=== PATIENT | female | born 1940 | race African-American/Black ===

== ENCOUNTER 2019-02-19 09:52 | Inpatient (IN) | payer MEDICARE, OTHER ==
[2019-02-19] VITALS (30 sets, daily range): BP systolic 60–105; BP diastolic 39–86
[~2019-02-19] VITALS: Ht 165.1 cm; Wt 72.1 kg
[2019-02-19] MEDS ORDERED: LACTULOSE20 GM/301 ORAL (10:04)
[2019-02-19] MEDS ORDERED: ATROVENT HFA12.9 GM IH (10:04)
[2019-02-19] MEDS ORDERED: INFUVITE ADULT10 ML IV (10:04)
[2019-02-19] MEDS ORDERED: PRO-STAT LIQUID30 ML ORAL (10:04)
[2019-02-19] MEDS ORDERED: PACERONE100 MG ORAL (10:04)
[2019-02-19] MEDS ORDERED: CATAPRES0.1 MG ORAL (10:04)
[2019-02-19] MEDS ORDERED: FAMOTIDINE20 MG ORAL (10:04)
[2019-02-19] MEDS ORDERED: VITAMIN C 250250 MG PO (10:04)
[2019-02-19] MEDS ORDERED: Omnipaque-300 100ml vial INJ PRN (10:15)
--- NOTE | 2019-02-19 10:29 | Emergency Room Report ---
History of Present Illness General Chief Complaint: Abdominal Pain Source: Medical Record, EMS Present Illness HPI Patient brought in with a complaint of abdominal pain. The patient is a poor historian. She does say that her abdomen hurts but she will not characterize it or quantify it. From records: History of atrial fibrillation and COPD. History of diabetes. POLS reveals full code. Allergies: Coded Allergies: No Known Allergies (Unverified , 02/19/19) Patient History Limited by: medical condition Past Medical History: see triage record Past Surgical History: other - g tube Social History Narrative full code Reviewed Nursing Documentation: PMH: Agreed; PSxH: Agreed Nursing Documentation-PMH Hx Hypertension: Yes Hx COPD: Yes Hx Diabetes: Yes Hx Dialysis: No - CKD Review of Systems All Other Systems: limited Physical Exam Vital Signs Date Time Temp Pulse Resp B/P (MAP) Pulse Ox O2 Delivery O2 Flow Rate FiO2 02/19/19 09:53 68 20 108/70 (83) 99 Room Air Sp02 EP Interpretation: reviewed, normal General Appearance: well appearing, alert, mild distress, other - nonsensical speech Head: normocephalic Eyes: bilateral eye normal inspection, bilateral eye PERRL, bilateral eye EOMI ENT: dry mucus membranes Neck: supple Respiratory: lungs clear, normal breath sounds Cardiovascular #1: tachycardia, irregularly irregular, edema - trace Cardiovascular #2: 2+ radial (R) Gastrointestinal: soft, no guarding, no rebound, tenderness - Left lower quadrant, other - Gastrostomy tube, decreased bowel sounds Genitourinary: no CVA tenderness Musculoskeletal: back normal, normal range of motion Neurologic: alert, responsive, motor strength/tone normal, DTRs symmetric, sensory intact Psychiatric: anxious Skin: no rash, warm/dry Procedures Critical Care Time Critical Care Time Total Critical Care Time: 90 min bedside evaluation and treatment excludes procedures (EKG, CVP). Reason for critical care: severe septic shock, abdominal pain, hypotension Possible complications: hypotension, hypertension, CA, shock, arrhythmias, metabolic acidosis, end organ damage, respiratory failure. Interventions: Fluid resuscitation, CVP, antibiotics, reassessments Course: Patient presents with abdominal pain, tachycardia and hypotension. CVP begun as unable to obtain peripheral IVs. Blood strong for lab. Fluid resuscitation. Sepsis reevaluation. Antibiotics begun. Levo fed begun with second sepsis reevaluation. Discussion with admitting physician. The order of CT scan due to renal failure. Blood pressure improved with pressors. Admitted to ICU. Consultations: nursing staff, EMS, radiology techs, admitting physician Performed by: Dr. Dukes Tolerated well condition = critical Central Line Central Line : Consent: Emergent Central Line Lumen: triple Maximal Sterile Barrier Tech: yes cap, yes mask, yes sterile gown, yes sterile gloves, yes large sterile sheet, yes hand hygiene, yes chlorhexidine prep cc's of anesthesia: 1 Complications: none Central Line Post Position: sutured, good blood return Attempts: One Patient Tolerated: Well Complications: None Progress bloods drawn for lab 30 cc - EBL 34 cc- ultrasound guidance Medical Decision Making Diagnostic Impression: Primary Impression: Severe sepsis Additional Impressions: Abdominal pain Qualified Codes: R10.32 - Left lower quadrant pain Atrial fibrillation with rapid ventricular response Dehydration Septic shock Renal failure Qualified Codes: N17.9 - Acute kidney failure, unspecified UTI (urinary tract infection) Qualified Codes: N39.0 - Urinary tract infection, site not specified ER Course Patient who is a poor historian brought in for abdominal pain. Clinically she is dehydrated at this time and has some tenderness left lower quadrant without guarding or rebound. Differential includes diverticulitis, UTI, pyelonephritis , impaction amongst others. Evaluation with EKG, chest x-ray and CT of the abdomen and pelvis with contrast. Labs will be obtained. The patient is placed on a monitoring tech. IV hydration is ordered. EKG with atrial fibrillation rate of 105 low voltage QRS and nonspecific ST-T wave changes. Initial x-ray without infiltrate however cardiomegaly. Leukocytosis with left shift. Elevated lactic acid. Renal failure. Pyuria. 11:45 Sepsis evaluation - hypotensive, no IV sites. CVP started. Elevated lactate. Antibiotics ordered. 13:55 BP better but still low after bolus. HR improved. Start levophed. CT re-ordered as renal failure. Still oral contrast. See CT below. Discussed with Dr. Reis. Admit ICU. Blood pressure improved on Levophed. Heart rate improved. Laboratory Tests Test 02/19/19 11:00 02/19/19 12:00 02/19/19 14:30 02/19/19 17:40 White Blood Count 11.0 K/UL (4.8-10.8) H Red Blood Count 2.70 M/UL (4.20-5.40) L Hemoglobin 9.0 G/DL (12.0-16.0) L Hematocrit 29.9 % (37.0-47.0) L Mean Corpuscular Volume 111 FL (80-99) H Mean Corpuscular Hemoglobin 33.5 PG (27.0-31.0) H Mean Corpuscular Hemoglobin Concent 30.2 G/DL (32.0-36.0) L Red Cell Distribution Width 18.0 % (11.6-14.8) H Platelet Count 80 K/UL (150-450) L Mean Platelet Volume 8.1 FL (6.5-10.1) Neutrophils (%) (Auto) % (45.0-75.0) Lymphocytes (%) (Auto) % (20.0-45.0) Monocytes (%) (Auto) % (1.0-10.0) Eosinophils (%) (Auto) % (0.0-3.0) Basophils (%) (Auto) % (0.0-2.0) Differential Total Cells Counted 100 Neutrophils % (Manual) 81 % (45-75) H Lymphocytes % (Manual) 15 % (20-45) L Monocytes % (Manual) 4 % (1-10) Eosinophils % (Manual) 0 % (0-3) Basophils % (Manual) 0 % (0-2) Band Neutrophils 0 % (0-8) Platelet Estimate Decreased L Platelet Morphology Normal Polychromasia 1+ Hypochromasia 1+ Anisocytosis 1+ Macrocytosis 2+ Prothrombin Time 27.0 SEC (9.30-11.50) H Prothrombin Time INR 2.7 (0.9-1.1) H PTT 50 SEC (23-33) H Sodium Level 138 MMOL/L (136-145) Potassium Level 5.5 MMOL/L (3.5-5.1) H Chloride Level 101 MMOL/L (98-107) Carbon Dioxide Level 20 MMOL/L (21-32) L Anion Gap 17 mmol/L (5-15) H Blood Urea Nitrogen 53 mg/dL (7-18) H Creatinine 2.1 MG/DL (0.55-1.30) H Estimate Glomerular Filtration Rate mL/min (>60) Glucose Level 75 MG/DL (74-106) Lactic Acid Level 11.80 mmol/L (0.4-2.0) H 10.60 mmol/L (0.66-2.22) H Calcium Level 8.3 MG/DL (8.5-10.1) L Total Bilirubin 3.0 MG/DL (0.2-1.0) H Direct Bilirubin 1.9 MG/DL (0.0-0.3) H Aspartate Amino Transferase (AST) 62 U/L (15-37) H Alanine Aminotransferase (ALT) 25 U/L (12-78) Alkaline Phosphatase 131 U/L (46-116) H Troponin I 0.080 ng/mL (0.000-0.056) Total Protein 6.5 G/DL (6.4-8.2) Albumin 2.4 G/DL (3.4-5.0) L Globulin 4.1 g/dL Albumin/Globulin Ratio 0.6 (1.0-2.7) L Lipase 170 U/L (73-393) Urine Color Yellow Urine Appearance Cloudy Urine pH 5 (4.5-8.0) Urine Specific [place] 1.020 (1.005-1.035) Urine Protein 3+ (NEGATIVE) H Urine Glucose (UA) Negative (NEGATIVE) Urine Ketones 2+ (NEGATIVE) H Urine Blood 3+ (NEGATIVE) H Urine Nitrite Negative (NEGATIVE) Urine Bilirubin Negative (NEGATIVE) Urine Urobilinogen 4 MG/DL (0.0-1.0) H Urine Leukocyte Esterase 3+ (NEGATIVE) H Urine RBC 5-10 /HPF (0 - 2) H Urine WBC 30-40 /HPF (0 - 2) H Urine Squamous Epithelial Cells Few /LPF (NONE/OCC) Urine Bacteria Few /HPF (NONE) Urine Yeast Few /HPF (NONE) H Arterial Blood pH 7.317 (7.350-7.450) Arterial Blood Partial Pressure CO2 28.6 mmHg (35.0-45.0) L Arterial Blood Partial Pressure O2 102.6 mmHg (75.0-100.0) H Arterial Blood HCO3 14.3 mmol/L (22.0-26.0) *L Arterial Blood Oxygen Saturation 96.7 % (95-100) Arterial Blood Base Excess -10.7 (-2-2) *L Melchor Test Positive EKG Diagnostic Results Rate: tachycardiac Rhythm: other - She will fibrillation ST Segments: no acute changes - Nonspecific ST-T wave changes Rhythm Strip Diag. Results EP Interpretation: yes Rhythm: other - Atrial fibrillation [address]-T wave changes Chest X-Ray Diagnostic Results Chest X-Ray Diagnostic Results #1: Chest X-Ray Ordered: Yes # of Views/Limited/Complete: 1 View Indication: Other EP Interpretation: Yes Interpretation: no consolidation, no effusion, no pneumothorax, other - cardiomegally Impression: No acute disease Electronically Signed by: Electronically signed by Jimmie Dukes MD Chest X-Ray Diagnostic Results #2: Chest X-Ray Ordered: Yes # of Views/Limited/Complete: 1 View Indication: Other EP Interpretation: Yes Interpretation: no consolidation, no effusion, no pneumothorax, other - Cardiomegaly and CVP in superior vena cava Impression: Other Electronically Signed by: Electronically signed by Jimmie Dukes MD CT/MRI/US Diagnostic Results CT/MRI/US Diagnostic Results : Imaging Test Ordered: abd/pelvis - oral contrast Impression IMPRESSION: Limited evaluation due to artifact. Mild to moderate ascites Trace bilateral pleural effusions. Basilar atelectasis and/or infiltrate. Trace pericardial effusion Generalized cardiomegaly. Atherosclerotic vascular disease Extensive diverticulosis of the colon. No definite diverticulitis. Anasarca Gross catheter Query rectal prolapse Last Vital Signs Date Time Temp Pulse Resp B/P (MAP) Pulse Ox O2 Delivery O2 Flow Rate FiO2 02/19/19 18:30 108 24 93/70 (78) 98 02/19/19 16:30 97.0 02/19/19 16:05 Room Air 98 Status: improved Disposition: ADMITTED INPATIENT Condition: Critical Jimmie Dukes MD Feb 19, 2019 10:29
--- NOTE | 2019-02-19 11:10 | NUR ---
ED Nurse Note: pt very difficult to obtain iv and labs. md aware of difficulty and hypotension. md to place central line. pcxr being done at bs. pt remains awake and talking but confused.
[2019-02-19 11:20] LABS: HEMATOCRIT 29.9 % (37.0-47.0); MEAN CORPUSCULAR VOLUME 111 FL (80-99); PLATELET COUNT 80 K/UL (150-450)
[2019-02-19 11:28] LABS: INR 2.7 (0.9-1.1)
[2019-02-19 11:30] LABS: ANION GAP 17 mmol/L (5-15); BLOOD UREA NITROGEN 53 mg/dL (7-18); CALCIUM 8.3 MG/DL (8.5-10.1); CARBON DIOXIDE 20 MMOL/L (21-32); CHLORIDE 101 MMOL/L (98-107); CREATININE 2.1 MG/DL (0.55-1.30); POTASSIUM 5.5 MMOL/L (3.5-5.1); SODIUM 138 MMOL/L (136-145)
[2019-02-19] MEDS ORDERED: Lidocaine 1% MPF 10mg/ml 5ml ONE (11:37)
[2019-02-19 11:40] LABS: ALANINE AMINOTRANSFERASE 25 U/L (12-78); ALBUMIN 2.4 G/DL (3.4-5.0); ALBUMIN/GLOBULIN RATIO 0.6 (1.0-2.7); ALKALINE PHOSPHATASE 131 U/L (46-116); ASPARTATE AMINO TRANSFERASE 62 U/L (15-37)
--- NOTE | 2019-02-19 11:52 | NUR ---
ED Nurse Note: MD attempting to place central line.
[2019-02-19 11:54] LABS: BILIRUBIN,DIRECT 1.9 MG/DL (0.0-0.3)
--- NOTE | 2019-02-19 12:10 | NUR ---
ED Nurse Note: cetnral line placed and pt tolerated well ivf infusing a ordered.
--- NOTE | 2019-02-19 12:10 | NUR ---
ED Nurse Note: md aware of lactic acid result. per md pt to receive ivf boluses before having reflex lactic drawn.
[2019-02-19] MEDS ORDERED: Piperacillin/Tazobactam 3.375 GM in NS 110 ML IVPB ONE (12:15)
[2019-02-19] MEDS ORDERED: Vancomycin 1 GM in NS 275 ML IVPB ONE (12:15)
[2019-02-19 12:24] LABS: APPEARANCE,URINE CLOUDY; BILIRUBIN, URINE NEGATIVE (NEGATIVE); GLUCOSE, URINE (UA) NEGATIVE (NEGATIVE); KETONES,URINE 2+ (NEGATIVE); LEUKOCYTE ESTERASE ,URINE 3+ (NEGATIVE); NITRITE,URINE NEGATIVE (NEGATIVE); PH,URINE 5 (4.5-8.0); PROTEIN,URINE 3+ (NEGATIVE); UROBILINOGEN,URINE 4 MG/DL (0.0-1.0)
[2019-02-19 12:25] LABS: COLOR,URINE YELLOW
--- NOTE | 2019-02-19 12:28 | NUR ---
Central line dressing soiled. Dressing changed. Sterile technique used.
--- NOTE | 2019-02-19 13:04 | Diagnostic Imaging Report ---
Indication: Dyspnea Comparison: None A single view chest radiograph was obtained. Findings: The heart is enlarged. Lungs are clear. Pulmonary vascularity is within normal limits. No pleural effusion seen. Bones are osteopenic. There is an old right clavicle fracture and multiple old rib fractures. IMPRESSION: Moderate to severe cardiomegaly.
--- NOTE | 2019-02-19 13:06 | Diagnostic Imaging Report ---
Indication: Line placement Comparison: Earlier today at 11:11 A single view chest radiograph was obtained. Findings: Right jugular line is present projected over the SVC. There is no pneumothorax. No change otherwise compared to the earlier film. IMPRESSION: Right jugular central venous catheter in good position.
--- NOTE | 2019-02-19 14:12 | NUR ---
ED Nurse Note: Dr. Dukes aware that patien blood pressure is trending in systolic 70. Also aware of heart rate 103.
--- NOTE | 2019-02-19 14:45 | NUR ---
ED Nurse Note: pt with continued hypotension despite ivf bolus. pt with lactic reflex drawn ans sent. levophed gtt started as noted. pt awake and confused with unitelligeable speech. admission swabs sent as ordered.
--- NOTE | 2019-02-19 15:00 | NUR ---
ED Nurse Note: pt remains with levophed titration as per spreadsheet vs noted there. pt tolerating well.
[2019-02-19] MEDS ORDERED: Lidocaine 1% MPF 10mg/ml 5ml INJ ONE (15:15)
--- NOTE | 2019-02-19 15:22 | NUR ---
ED Nurse Note: pt to have abd ct prior to going to icu.
--- NOTE | 2019-02-19 15:23 | NUR ---
NURSE NOTES: RECEIVE REPORT FROM Sandi FALK IN ER. PT ON LEVO, REMAINS HYPOTENSIVE SBP 80'S. A FEBRILE. A/[id number] MD WOLF. PT GOING TO 246-H. NO WOUNDS NOTED. SWABS OBTAINED. AWAITING PT ARRIVAL.
--- NOTE | 2019-02-19 15:25 | NUR ---
ED Nurse Note: ct called to come transport pt and perform procedure without iv contrast per dr dominguez
--- NOTE | 2019-02-19 15:33 | NUR ---
Pt taken for CT.
--- NOTE | 2019-02-19 15:58 | NUR ---
ED Nurse Note: ct completed and pt prepared to go to icu with rn and acls protocol. remains alert and confused.
--- NOTE | 2019-02-19 16:25 | Diagnostic Imaging Report ---
Indication: Abdominal pain Technique: Continuous helical transaxial imaging of the abdomen and pelvis was obtained from the lung bases to the pubic symphysis. No intravenous contrast was administered. Coronal 2-D reformats were also obtained. Automatic Exposure Control was utilized. Total Dose length Product (DLP): [address] Dose Index Volume (CTDIvol): 17.5 mGy Comparison: none Findings: There is extensive artifact from the patient's arms limiting evaluation. Oral contrast was given. Gastrostomy tube is noted in good position. There are small bilateral pleural effusions present with adjacent ill-defined parenchymal density either atelectasis or pneumonia. Correlate clinically. Small pericardial effusion is present and there is generalized cardiomegaly present. Hiatal hernia noted. Aorta and coronary artery calcification present. Mild ascites is demonstrated. No compelling evidence for bowel obstruction. There is extensive diverticulosis involving the colon without obvious diverticulitis. Generalized anasarca noted. The appendix is not seen. The kidneys show no obvious hydronephrosis. The right kidney appears atrophic. There is a suggestion of cysts within the right kidney but this is grossly limited in terms of visualization. The gallbladder is demonstrated. The rectum appears low in location suggestive of prolapse and with a moderate degree of fecal retention. IMPRESSION: Limited evaluation due to artifact. Mild to moderate ascites Trace bilateral pleural effusions. Basilar atelectasis and/or infiltrate. Trace pericardial effusion Generalized cardiomegaly. Atherosclerotic vascular disease Extensive diverticulosis of the colon. No definite diverticulitis. Anasarca Gross catheter Query rectal prolapse The CT scanner at [facility] is accredited by the [place] [employer] and the scans are performed using dose optimization techniques as appropriate to a performed exam including Automatic Exposure control.
--- NOTE | 2019-02-19 17:00 | NUR ---
NURSE NOTES: PT BROUGHT TO FLOOR. ON R.A SATING 60'S, PURSED LIP BREATHING, UNABLE TO OBTAIN AX TEMP, PER RECTAL 94.4. BP 84/44, HR 120, RR25. LEVO GOING AT 8MCG/KG/HR. RT IJ, TRANSPARENT PT MOANING AND RAMBLING. SWINGING ARMS RESTRAINTS APPLIED FOR SAFETY. PT VERY CONFUSED, PUPILS 4MM SLUGGISH, SCLERA YELLOW HUE. ORBITS SWOLLEN AND HYPERPIGMENTED. ABDOMEN DISTENDED, FIRM, 1 LOOSE BM BROWN. HATFIELD IN PLACE, NO OUTPUT NOTED. BEAR HUGGER APPLIED, LEVO TITRATED UP TO 10MG/KG/HR. CENTRAL DRESSING CHANGED, PT PLACED ON 3L NC, CONTINUES TO DESAT PLACED ON VENTURI 28%3L. STANDARD PRECAUTIONS IN PLACE.
--- NOTE | 2019-02-19 17:20 | NUR ---
NURSE NOTES: CALLED MD SINGLETARY LEFT MESSAGE FOR NEW ADMIT ORDERS, PT HYPOTENSIVE RECEIVED LEVOPHED DRIP, VERY CONFUSED, HR 120. LACTIC ACID 10.60, K 5.5, PLT 80, PH 7.3, PCO2 28.6, ATF930.3. CODE STATUS. AWAITING CALL BACK.
--- NOTE | 2019-02-19 18:00 | NUR ---
NURSE NOTES: LEVOPHED TITRATED TO 14MCG/KG/HR. BP REMAIN LIABLE. NS RUNNING AT 100ML/HR. RECTAL TEMP REMAIN ST 94. PT CONTINUES TO MOAN. REMAINS CONFUSED. WILL CONTINUE TO MONITOR PT.
[2019-02-19] MEDS: Pantoprazole Inj IVP SCH (18:50)
--- NOTE | 2019-02-19 19:00 | NUR ---
HAND-OFF: Report given to HENRRY HDZ.
--- NOTE | 2019-02-19 19:30 | NUR ---
NURSE NOTES: Dr. Reis at bedside assessing patient. Phenylephrine ordered as standby incase Levophed has maxed out. Bipap PRN ordered. PICC line ordered for AM. Will continue to monitor.
--- NOTE | 2019-02-19 20:00 | NUR ---
NURSE NOTES: Patient received from Jody HDZ. Patient is awake, confused and has rambling speech. Patient is semi-fowlers position. Patient is on venturi mast at 28% FiO2. Right IJ TLC noted running Levophed at 16mcg/min. Patient also has NS at 100ml/hr. Gross catheter noted. HR is 110 Afib. Patients is on bilateral soft wrist restraints. Pulses noted and skin is intact, saftery measures are in place. Will continue to monitor.
[2019-02-19] MEDS ORDERED: Lidocaine 1% Plain 30 ml INJ PRN (20:15)
[2019-02-19] MEDS: Phenylephrine 100 MG in NS 240 ML IV SCH (20:15)
[2019-02-19] MEDS ORDERED: Heparin1,000 units/500ml Premix(Conc:2 units/ml) IV PRN (20:15)
[2019-02-19] MEDS: Piperacillin/Tazobactam 3.375 GM in NS 110 ML IVPB SCH (21:00)
--- NOTE | 2019-02-19 22:00 | NUR ---
NURSE NOTES: Repositioned patient and gave oral care. Patient continues to be agitated and rambles in speech. Pressors has slowly been titrated to appropriate dose to maintain MAP getter than 60. Patient is not making any urine output. MD already aware of this. Patients blood pressure fluctuates up and down. Patient however maintains awake and restlessness.
--- NOTE | 2019-02-19 23:15 | History and Physical Report ---
DATE OF ADMISSION: 02/19/2019 CHIEF COMPLAINT: Septic shock. HISTORY OF PRESENT ILLNESS: The patient is a 78-year-old female. She has a history of poor p.o. intake, status post G-tube placement; chronic atrial fibrillation; diastolic congestive heart failure; dementia; psychosis; hyperlipidemia. She was transferred from a [facility] facility with complaints of hypotension, shock, and altered mental status. On evaluation in the emergency room, the patient was noted to be hypotensive, confused, and altered. She was placed on a Venti mask. She has been pancultured and started on broad-spectrum IV antibiotics. A central line was placed for pressors because of persistent hypotension despite IV fluid boluses. The patient is now admitted to the intensive care unit. [place] [id number]. ABG showed a pH of 7.317, pCO2 28, pO2 102 with a bicarb of 14. Sodium was 138, potassium 5.5, bicarb was 20, creatinine was 2. Lactic acid level was 12. Total bilirubin of 3 and a direct bilirubin of 1.9. UA showed 30 to 40 wbc's. The patient is currently moaning, unable to provide any history. PAST MEDICAL HISTORY: As above. PAST SURGICAL HISTORY: Includes . CURRENT MEDICATIONS: Reconciled and reviewed. ALLERGIES: None. FAMILY HISTORY: Unknown. SOCIAL HISTORY: There is no known history of tobacco, ethanol, or drugs. REVIEW OF SYSTEMS: From the patient is unobtainable. PHYSICAL EXAMINATION: VITAL SIGNS: Temperature 94, pulse 112, respirations 10, blood pressure 94/65. GENERAL: The patient is a chronically ill-appearing female, in no apparent distress. She is awake, but confused, altered. She does not follow commands. NECK: Supple. There is a central line in the right subclavian area. HEART: Regular rate and rhythm. LUNGS: Clear anteriorly. ABDOMEN: Soft, nontender, nondistended. EXTREMITIES: No clubbing, cyanosis, or edema. The patient moves all four extremities, but is confused. LABORATORY DATA: platelet count of 80,000. INR was was 2.7. Sodium 138, potassium 5.5, chloride 101, bicarb 20, BUN 53, creatinine is 2.1. Lactic acid level was 12. Total bilirubin of 3.0. Troponin is 0.08. ASSESSMENT: This is an unfortunate 78-year-old female with a history of dementia, chronic atrial fibrillation, hypertension, diastolic congestive heart failure, admitted with complaints of septic shock secondary to urinary tract infection. PLAN: Aggressive fluid resuscitation. Broad-spectrum IV antibiotics. Supplemental oxygen as needed. We will follow up pending cultures. The patient's status is critical and guarded. She does have a advance directive and POLST that states that the patient wants Full Code and aggressive care. The patient's status is currently critical and guarded. Her prognosis is poor. There are no available family members listed in the chart to contact. Mitchel Reis M.D. DR: ERIC JOB#: [id number] CC:
[2019-02-20] VITALS (50 sets, daily range): BP systolic 65–127; BP diastolic 45–102
--- NOTE | 2019-02-20 | NUR ---
NURSE NOTES: Patient repositioned and oral care again provided. pressors are ongoing. Blood pressure continues to be fluctuating and unstable. HR remains Afib 110-120s--Attending is already aware. Patients temperature is 97.5F. Will continue to monitor.
--- NOTE | 2019-02-20 02:00 | NUR ---
NURSE NOTES: Patient repositioned. Patient remains still confused and altered. Rambling speech pattern. MD is already aware. Pressors are ongoing. BP continues to fluctuate up and down with no consistency. Afib with RVR in the 120s on the monitor, Attending made aware. Continue to monitor per MD. Patient making no urine output.
--- NOTE | 2019-02-20 04:00 | NUR ---
NURSE NOTES: Patient cleaned and repositioned. Oral care provided. Pressors ongoing. Patient temperature is 96.0f. Warming blanket on patient. Patients remains rambling repetitive uncomprehending speech. No urine output. Irrigated Gross and still no urine output other than the fluid that was irrigated. BP remains unstable. Afib in the 120s. Will continue to monitor.
[2019-02-20 05:13] LABS: HEMOGLOBIN 8.7 G/DL (12.0-16.0); MEAN CORPUSCULAR VOLUME 112 FL (80-99); PLATELET COUNT 98 K/UL (150-450); RED CELL DISTRIBUTION WIDTH 17.7 % (11.6-14.8); WHITE BLOOD COUNT 13.2 K/UL (4.8-10.8)
--- NOTE | 2019-02-20 05:49 | General Progress Note ---
Assessment/Plan Problem List: (1) Septic shock ICD Codes: A41.9 - Sepsis, unspecified organism; R65.21 - Severe sepsis with septic shock SNOMED: 67235449 (2) UTI (urinary tract infection) ICD Codes: N39.0 - Urinary tract infection, site not specified SNOMED: 63727728 Qualifiers: Qualified Codes: N39.0 - Urinary tract infection, site not specified (3) Renal failure ICD Codes: N19 - Unspecified kidney failure SNOMED: 36826914 Qualifiers: Qualified Codes: N17.9 - Acute kidney failure, unspecified (4) Abdominal pain ICD Codes: R10.9 - Unspecified abdominal pain SNOMED: 04791178 Qualifiers: Qualified Codes: R10.32 - Left lower quadrant pain (5) Severe sepsis ICD Codes: A41.9 - Sepsis, unspecified organism; R65.20 - Severe sepsis without septic shock SNOMED: 34642047 (6) Dehydration ICD Codes: E86.0 - Dehydration SNOMED: 69139183 (7) Atrial fibrillation with rapid ventricular response ICD Codes: I48.91 - Unspecified atrial fibrillation SNOMED: [id number] Status: unchanged Assessment/Plan: picc line needed for pressors to confused to consent. needed for potentially life saving pressors and abx cont iv abx follow up cultures id/cards/critical care/renal evals PPI dvt/prophylaxis Subjective ROS Limited/Unobtainable: Yes Constitutional: Reports: malaise, weakness HEENT: Reports: no symptoms Cardiovascular: Reports: no symptoms Respiratory: Reports: shortness of breath Gastrointestinal/Abdominal: Reports: no symptoms Genitourinary: Reports: no symptoms Neurologic/Psychiatric: Reports: pre-existing deficit Endocrine: Reports: no symptoms Hematologic/Lymphatic: Reports: anemia Allergies: Coded Allergies: No Known Allergies (Unverified , 02/19/19) All Systems: reviewed and negative except above Subjective no events. remains confused. central line leaking. on pressors. no urine output. Objective Last 24 Hour Vital Signs Date Time Temp Pulse Resp B/P (MAP) Pulse Ox O2 Delivery O2 Flow Rate FiO2 02/20/19 05:00 123 16 73/60 (64) 97 02/20/19 05:00 73/56 02/20/19 04:30 118 24 81/61 (68) 94 02/20/19 04:00 28 02/20/19 04:00 96.0 127 26 104/60 (75) 99 02/20/19 04:00 124 02/20/19 04:00 104/60 02/20/19 04:00 Venturi Mask 02/20/19 03:30 125 25 88/63 (71) 97 02/20/19 03:00 127/75 02/20/19 03:00 127 23 127/75 (92) 100 02/20/19 02:30 126 28 97/79 (85) 94 02/20/19 02:18 100/64 02/20/19 02:00 77/55 02/20/19 02:00 121 21 77/55 (62) 96 02/20/19 01:00 107/75 02/20/19 01:00 124 26 100/64 (76) 02/20/19 00:45 126 28 93/60 (71) 02/20/19 00:30 125 24 96/76 (83) 02/20/19 00:15 121 21 89/58 (68) 02/20/19 00:00 97.8 119 21 83/60 (68) 02/20/19 00:00 125 02/20/19 00:00 83/60 02/20/19 00:00 28 02/20/19 00:00 Venturi Mask 02/19/19 23:15 121 24 101/61 (74) 98 02/19/19 23:00 125 26 104/86 (92) 96 02/19/19 23:00 104/86 02/19/19 22:30 115 20 80/55 (63) 02/19/19 22:30 80/55 02/19/19 22:15 117 20 82/52 (62) 02/19/19 22:05 119 23 81/60 (67) 02/19/19 22:00 121 25 88/56 (67) 98 02/19/19 22:00 82/52 02/19/19 21:45 123 23 105/60 (75) 100 02/19/19 21:30 120 25 98/69 (79) 02/19/19 21:15 122 23 89/68 (75) 98 02/19/19 21:00 89/60 02/19/19 20:15 112 94/65 02/19/19 20:00 94.0 112 9 94/65 (75) 97 02/19/19 20:00 Venturi Mask 02/19/19 20:00 82/51 02/19/19 20:00 28 02/19/19 19:43 111 19 87/45 (59) 98 02/19/19 19:30 110 23 60/47 (51) 99 02/19/19 19:03 90/54 02/19/19 19:00 112 23 90/54 (66) 98 02/19/19 18:30 108 24 93/70 (78) 98 02/19/19 18:00 108 23 93/70 (78) 89 02/19/19 17:30 101 23 71/57 (62) 100 02/19/19 17:12 Room Air 02/19/19 17:08 100 02/19/19 17:00 101 23 90/54 (66) 67 02/19/19 16:30 97.0 100 21 80/54 (63) 77 02/19/19 16:05 106 19 92/67 98 Room Air 98 02/19/19 16:00 106 19 92/67 98 Room Air 02/19/19 15:30 97 22 93/51 99 Room Air 02/19/19 15:15 98 21 94/53 98 Room Air 02/19/19 15:00 99 21 81/62 98 Room Air 02/19/19 15:00 81/62 02/19/19 14:51 85/53 02/19/19 14:46 80/64 02/19/19 14:45 104 20 78/39 97 Room Air 02/19/19 14:41 78/39 02/19/19 14:00 97.2 100 20 86/60 91 Room Air 02/19/19 13:30 98.0 103 22 85/66 91 Room Air 02/19/19 13:00 98.0 102 23 83/68 91 Room Air 02/19/19 12:30 98.2 104 22 82/66 90 Room Air 02/19/19 12:00 98.3 102 24 76/42 92 Room Air 02/19/19 11:13 110 19 75/52 100 Room Air 02/19/19 10:40 98.0 60 19 89/68 98 Room Air 02/19/19 10:40 60 18 Room Air 98 02/19/19 09:53 68 20 108/70 (83) 99 Room Air Intake and Output 02/19/19 02/20/19 19:00 07:00 Intake Total 2810 ml 2715.0 ml Output Total 205 ml 30 ml Balance 2605 ml 2685.0 ml Intake IV Total 2810 ml 2715.0 ml Other 0 ml Output Urine Total 205 ml 30 ml # Bowel Movements 1 Laboratory Tests 02/19/19 11:00: White Blood Count 11.0H, Red Blood Count 2.70L, Hemoglobin 9.0L, Hematocrit 29.9L, Mean Corpuscular Volume 111H, Mean Corpuscular Hemoglobin 33.5H, Mean Corpuscular Hemoglobin Concent 30.2L, Red Cell Distribution Width 18.0H, Platelet Count 80L, Mean Platelet Volume 8.1, Neutrophils (%) (Auto) , Lymphocytes (%) (Auto) , Monocytes (%) (Auto) , Eosinophils (%) (Auto) , Basophils (%) (Auto) , Differential Total Cells Counted 100, Neutrophils % ( Manual) 81H, Lymphocytes % (Manual) 15L, Monocytes % (Manual) 4, Eosinophils % ( Manual) 0, Basophils % (Manual) 0, Band Neutrophils 0, Platelet Estimate DecreasedL, Platelet Morphology Normal, Polychromasia 1+, Hypochromasia 1+, Anisocytosis 1+, Macrocytosis 2+, Prothrombin Time 27.0H, Prothromb Time International Ratio 2.7H, Activated Partial Thromboplast Time 50H, Sodium Level 138, Potassium Level 5.5H, Chloride Level 101, Carbon Dioxide Level 20L, Anion Gap 17H, Blood Urea Nitrogen 53H, Creatinine 2.1H, Estimat Glomerular Filtration Rate , Glucose Level 75, Lactic Acid Level 11.80H, Calcium Level 8.3L , Total Bilirubin 3.0H, Direct Bilirubin 1.9H, Aspartate Amino Transf (AST/SGOT ) 62H, Alanine Aminotransferase (ALT/SGPT) 25, Alkaline Phosphatase 131H, Troponin I 0.080H, Total Protein 6.5, Albumin 2.4L, Globulin 4.1, Albumin/ Globulin Ratio 0.6L, Lipase 170 02/19/19 12:00: Urine Color Yellow, Urine Appearance Cloudy, Urine pH 5, Urine Specific [place] 1.020, Urine Protein 3+H, Urine Glucose (UA) Negative, Urine Ketones 2+H, Urine Blood 3+H, Urine Nitrite Negative, Urine Bilirubin Negative, Urine Urobilinogen 4H, Urine Leukocyte Esterase 3+H, Urine RBC 5-10H, Urine WBC 30-40H, Urine Squamous Epithelial Cells Few, Urine Bacteria Few, Urine Yeast FewH, Urine Random Sodium 28, Urine Creatinine 117.8 02/19/19 14:30: Lactic Acid Level 10.60H 02/19/19 17:40: Arterial Blood pH 7.317L, Arterial Blood Partial Pressure CO2 28.6L, Arterial Blood Partial Pressure O2 102.6H, Arterial Blood HCO3 14.3*L, Arterial Blood Oxygen Saturation 96.7, Arterial Blood Base Excess -10.7*L, Melchor Test Positive 02/19/19 20:54: Lactic Acid Level 9.80H 02/19/19 23:00: Lactic Acid Level 8.60H 02/20/19 03:25: Lactic Acid Level [Pending], White Blood Count [Pending], Red Blood Count [ Pending], Hemoglobin [Pending], Hematocrit [Pending], Mean Corpuscular Volume [ Pending], Mean Corpuscular Hemoglobin [Pending], Mean Corpuscular Hemoglobin Concent [Pending], Red Cell Distribution Width [Pending], Platelet Count [ Pending], Mean Platelet Volume [Pending], Neutrophils (%) (Auto) [Pending], Lymphocytes (%) (Auto) [Pending], Monocytes (%) (Auto) [Pending], Eosinophils (% ) (Auto) [Pending], Basophils (%) (Auto) [Pending], Sodium Level [Pending], Potassium Level [Pending], Chloride Level [Pending], Carbon Dioxide Level [ Pending], Blood Urea Nitrogen [Pending], Creatinine [Pending], Estimat Glomerular Filtration Rate [Pending], Glucose Level [Pending], Calcium Level [ Pending], Total Bilirubin [Pending], Aspartate Amino Transf (AST/SGOT) [Pending] , Alanine Aminotransferase (ALT/SGPT) [Pending], Alkaline Phosphatase [Pending] , Total Protein [Pending], Albumin [Pending], Globulin [Pending] Height (Feet): 5 Height (Inches): 6.00 Weight (Pounds): 121 General Appearance: WD/WN, confused Neck: supple Cardiovascular: irregularly irregular Respiratory/Chest: chest wall non-tender, lungs clear, normal breath sounds, no respiratory distress Abdomen: normal bowel sounds, non tender, soft, no organomegaly Edema: no edema noted Arm (L), no edema noted Arm (R), no edema noted Leg (L), no edema noted Leg (R), no edema noted Pedal (L), no edema noted Pedal (R), no edema noted Generalized Neurologic: disoriented Mitchel Reis MD Feb 20, 2019 05:49
[2019-02-20 06:00] LABS: ALANINE AMINOTRANSFERASE 28 U/L (12-78); ALBUMIN 2.2 G/DL (3.4-5.0); ALBUMIN/GLOBULIN RATIO 0.5 (1.0-2.7); ALKALINE PHOSPHATASE 119 U/L (46-116); ANION GAP 16 mmol/L (5-15); ASPARTATE AMINO TRANSFERASE 68 U/L (15-37); BLOOD UREA NITROGEN 54 mg/dL (7-18); CALCIUM 7.5 MG/DL (8.5-10.1); CARBON DIOXIDE 20 MMOL/L (21-32); CHLORIDE 101 MMOL/L (98-107); CREATININE 2.1 MG/DL (0.55-1.30); POTASSIUM 5.4 MMOL/L (3.5-5.1); SODIUM 136 MMOL/L (136-145)
--- NOTE | 2019-02-20 06:00 | NUR ---
NURSE NOTES: Smiley Garcia at bedside and updated him on patients condition. MD is aware of HR being Afib with RVR at time. no orders at this time regarding HR. Patient remains on warming blanket. Still no urine output. Will continue to monitor
[2019-02-20 06:27] LABS: BILIRUBIN,DIRECT 1.5 MG/DL (0.0-0.3)
--- NOTE | 2019-02-20 07:16 | NUR ---
HAND-OFF: Report given to Jimmie HDZ.
--- NOTE | 2019-02-20 09:18 | Critical Care Progress Note ---
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, chronic atrial fibrillation, hypertension, diastolic congestive heart failure, septic shock, hypothermia, hypotension, hypoxemia severe PCM, thrombocytopenia, anemia, leukocytosis, acute renal failure tachycardia PLAN care noted thao US stat ?VQ scan IV antibiotics respiratory care SNF meds supportive care suction as needed monitor for aspiration oxygen therapy prognosis guarded medications/laboratory data/nursing notes/ICU care reviewed in detail note reviewed and edited care discussed with RN and RT ICU time spent 40 minutes Critical Care - Subjective Interval Events: asked to follow ICU care reviewed patient obtunded and hypothermic ROS Limited/Unobtainable: Yes Condition: critical EKG Rhythm: Sinus Rhythm I&O: Intake and Output 02/19/19 02/20/19 19:00 07:00 Intake Total 2810 ml 3087.5 ml Output Total 205 ml 40 ml Balance 2605 ml 3047.5 ml Intake IV Total 2810 ml 3087.5 ml Other 0 ml Output Urine Total 205 ml 40 ml # Bowel Movements 1 Critical Care - Objective CXR: cardiomegaly Last 24 Hour Vital Signs Date Time Temp Pulse Resp B/P (MAP) Pulse Ox O2 Delivery O2 Flow Rate FiO2 02/20/19 08:30 131 29 94/58 (70) 89 02/20/19 08:00 31 02/20/19 08:00 99.5 132 28 127/102 (110) 89 02/20/19 07:30 131 30 99/64 (76) 89 02/20/19 07:00 110/50 02/20/19 07:00 130 27 120/102 (108) 89 02/20/19 06:53 126 24 95 Venturi Mask 4.0 31 02/20/19 06:51 97 Venturi Mask 4.0 31 02/20/19 06:30 128 24 96/65 (75) 98 02/20/19 06:00 127 27 91/65 (74) 95 02/20/19 05:50 91/65 02/20/19 05:45 79/60 02/20/19 05:30 123 20 85/56 (66) 02/20/19 05:00 123 16 73/60 (64) 97 02/20/19 05:00 73/56 02/20/19 04:30 118 24 81/61 (68) 94 02/20/19 04:00 28 02/20/19 04:00 96.0 127 26 104/60 (75) 99 02/20/19 04:00 124 02/20/19 04:00 104/60 02/20/19 04:00 Venturi Mask 02/20/19 03:30 125 25 88/63 (71) 97 02/20/19 03:00 127/75 02/20/19 03:00 127 23 127/75 (92) 100 02/20/19 02:30 126 28 97/79 (85) 94 02/20/19 02:18 100/64 02/20/19 02:00 77/55 02/20/19 02:00 121 21 77/55 (62) 96 02/20/19 01:00 107/75 02/20/19 01:00 124 26 100/64 (76) 02/20/19 00:45 126 28 93/60 (71) 02/20/19 00:30 125 24 96/76 (83) 02/20/19 00:15 121 21 89/58 (68) 02/20/19 00:00 97.8 119 21 83/60 (68) 02/20/19 00:00 125 02/20/19 00:00 83/60 02/20/19 00:00 28 02/20/19 00:00 Venturi Mask 02/19/19 23:15 121 24 101/61 (74) 98 02/19/19 23:00 125 26 104/86 (92) 96 02/19/19 23:00 104/86 02/19/19 22:30 115 20 80/55 (63) 02/19/19 22:30 80/55 02/19/19 22:15 117 20 82/52 (62) 02/19/19 22:05 119 23 81/60 (67) 02/19/19 22:00 121 25 88/56 (67) 98 02/19/19 22:00 82/52 02/19/19 21:45 123 23 105/60 (75) 100 02/19/19 21:30 120 25 98/69 (79) 02/19/19 21:15 122 23 89/68 (75) 98 02/19/19 21:00 89/60 02/19/19 20:15 112 94/65 02/19/19 20:00 94.0 112 9 94/65 (75) 97 02/19/19 20:00 Venturi Mask 02/19/19 20:00 82/51 02/19/19 20:00 28 02/19/19 19:43 111 19 87/45 (59) 98 02/19/19 19:30 110 23 60/47 (51) 99 02/19/19 19:03 90/54 02/19/19 19:00 112 23 90/54 (66) 98 02/19/19 18:30 108 24 93/70 (78) 98 02/19/19 18:00 108 23 93/70 (78) 89 02/19/19 17:30 101 23 71/57 (62) 100 02/19/19 17:12 Room Air 02/19/19 17:08 100 02/19/19 17:00 101 23 90/54 (66) 67 02/19/19 16:30 97.0 100 21 80/54 (63) 77 02/19/19 16:05 106 19 92/67 98 Room Air 98 02/19/19 16:00 106 19 92/67 98 Room Air 02/19/19 15:30 97 22 93/51 99 Room Air 02/19/19 15:15 98 21 94/53 98 Room Air 02/19/19 15:00 99 21 81/62 98 Room Air 02/19/19 15:00 81/62 02/19/19 14:51 85/53 02/19/19 14:46 80/64 02/19/19 14:45 104 20 78/39 97 Room Air 02/19/19 14:41 78/39 02/19/19 14:00 97.2 100 20 86/60 91 Room Air 02/19/19 13:30 98.0 103 22 85/66 91 Room Air 02/19/19 13:00 98.0 102 23 83/68 91 Room Air 02/19/19 12:30 98.2 104 22 82/66 90 Room Air 02/19/19 12:00 98.3 102 24 76/42 92 Room Air 02/19/19 11:13 110 19 75/52 100 Room Air 02/19/19 10:40 98.0 60 19 89/68 98 Room Air 02/19/19 10:40 60 18 Room Air 98 02/19/19 09:53 68 20 108/70 (83) 99 Room Air Labs: Labs Test 02/19/19 11:00 02/19/19 12:00 02/19/19 14:30 02/19/19 17:40 White Blood Count 11.0 K/UL (4.8-10.8) Red Blood Count 2.70 M/UL (4.20-5.40) Hemoglobin 9.0 G/DL (12.0-16.0) Hematocrit 29.9 % (37.0-47.0) Mean Corpuscular Volume 111 FL (80-99) Mean Corpuscular Hemoglobin 33.5 PG (27.0-31.0) Mean Corpuscular Hemoglobin Concent 30.2 G/DL (32.0-36.0) Red Cell Distribution Width 18.0 % (11.6-14.8) Platelet Count 80 K/UL (150-450) Mean Platelet Volume 8.1 FL (6.5-10.1) Neutrophils (%) (Auto) % (45.0-75.0) Lymphocytes (%) (Auto) % (20.0-45.0) Monocytes (%) (Auto) % (1.0-10.0) Eosinophils (%) (Auto) % (0.0-3.0) Basophils (%) (Auto) % (0.0-2.0) Differential Total Cells Counted 100 Neutrophils % (Manual) 81 % (45-75) Lymphocytes % (Manual) 15 % (20-45) Monocytes % (Manual) 4 % (1-10) Eosinophils % (Manual) 0 % (0-3) Basophils % (Manual) 0 % (0-2) Band Neutrophils 0 % (0-8) Platelet Estimate Decreased Platelet Morphology Normal Polychromasia 1+ Hypochromasia 1+ Anisocytosis 1+ Macrocytosis 2+ Prothrombin Time 27.0 SEC (9.30-11.50) Prothromb Time International Ratio 2.7 (0.9-1.1) Activated Partial Thromboplast Time 50 SEC (23-33) Sodium Level 138 MMOL/L (136-145) Potassium Level 5.5 MMOL/L (3.5-5.1) Chloride Level 101 MMOL/L (98-107) Carbon Dioxide Level 20 MMOL/L (21-32) Anion Gap 17 mmol/L (5-15) Blood Urea Nitrogen 53 mg/dL (7-18) Creatinine 2.1 MG/DL (0.55-1.30) Estimat Glomerular Filtration Rate mL/min (>60) Glucose Level 75 MG/DL (74-106) Lactic Acid Level 11.80 mmol/L (0.4-2.0) 10.60 mmol/L (0.66-2.22) Calcium Level 8.3 MG/DL (8.5-10.1) Total Bilirubin 3.0 MG/DL (0.2-1.0) Direct Bilirubin 1.9 MG/DL (0.0-0.3) Aspartate Amino Transf (AST/SGOT) 62 U/L (15-37) Alanine Aminotransferase (ALT/SGPT) 25 U/L (12-78) Alkaline Phosphatase 131 U/L (46-116) Troponin I 0.080 ng/mL (0.000-0.056) Total Protein 6.5 G/DL (6.4-8.2) Albumin 2.4 G/DL (3.4-5.0) Globulin 4.1 g/dL Albumin/Globulin Ratio 0.6 (1.0-2.7) Lipase 170 U/L (73-393) Urine Color Yellow Urine Appearance Cloudy Urine pH 5 (4.5-8.0) Urine Specific [place] 1.020 (1.005-1.035) Urine Protein 3+ (NEGATIVE) Urine Glucose (UA) Negative (NEGATIVE) Urine Ketones 2+ (NEGATIVE) Urine Blood 3+ (NEGATIVE) Urine Nitrite Negative (NEGATIVE) Urine Bilirubin Negative (NEGATIVE) Urine Urobilinogen 4 MG/DL (0.0-1.0) Urine Leukocyte Esterase 3+ (NEGATIVE) Urine RBC 5-10 /HPF (0 - 2) Urine WBC 30-40 /HPF (0 - 2) Urine Squamous Epithelial Cells Few /LPF (NONE/OCC) Urine Bacteria Few /HPF (NONE) Urine Yeast Few /HPF (NONE) Urine Random Sodium 28 mmol/L (20-110) Urine Creatinine 117.8 MG/DL (30.0-125.0) Arterial Blood pH 7.317 (7.350-7.450) Arterial Blood Partial Pressure CO2 28.6 mmHg (35.0-45.0) Arterial Blood Partial Pressure O2 102.6 mmHg (75.0-100.0) Arterial Blood HCO3 14.3 mmol/L (22.0-26.0) Arterial Blood Oxygen Saturation 96.7 % (95-100) Arterial Blood Base Excess -10.7 (-2-2) Melchor Test Positive Test 02/19/19 20:54 02/19/19 23:00 02/20/19 03:25 Lactic Acid Level 9.80 mmol/L (0.4-2.0) 8.60 mmol/L (0.66-2.22) 7.60 mmol/L (0.4-2.0) White Blood Count 13.2 K/UL (4.8-10.8) Red Blood Count 2.60 M/UL (4.20-5.40) Hemoglobin 8.7 G/DL (12.0-16.0) Hematocrit 29.0 % (37.0-47.0) Mean Corpuscular Volume 112 FL (80-99) Mean Corpuscular Hemoglobin 33.3 PG (27.0-31.0) Mean Corpuscular Hemoglobin Concent 29.9 G/DL (32.0-36.0) Red Cell Distribution Width 17.7 % (11.6-14.8) Platelet Count 98 K/UL (150-450) Mean Platelet Volume 8.9 FL (6.5-10.1) Neutrophils (%) (Auto) % (45.0-75.0) Lymphocytes (%) (Auto) % (20.0-45.0) Monocytes (%) (Auto) % (1.0-10.0) Eosinophils (%) (Auto) % (0.0-3.0) Basophils (%) (Auto) % (0.0-2.0) Sodium Level 136 MMOL/L (136-145) Potassium Level 5.4 MMOL/L (3.5-5.1) Chloride Level 101 MMOL/L (98-107) Carbon Dioxide Level 20 MMOL/L (21-32) Anion Gap 16 mmol/L (5-15) Blood Urea Nitrogen 54 mg/dL (7-18) Creatinine 2.1 MG/DL (0.55-1.30) Estimat Glomerular Filtration Rate mL/min (>60) Glucose Level 125 MG/DL (74-106) Calcium Level 7.5 MG/DL (8.5-10.1) Total Bilirubin 3.0 MG/DL (0.2-1.0) Direct Bilirubin 1.5 MG/DL (0.0-0.3) Aspartate Amino Transf (AST/SGOT) 68 U/L (15-37) Alanine Aminotransferase (ALT/SGPT) 28 U/L (12-78) Alkaline Phosphatase 119 U/L (46-116) Total Protein 6.3 G/DL (6.4-8.2) Albumin 2.2 G/DL (3.4-5.0) Globulin 4.1 g/dL Albumin/Globulin Ratio 0.5 (1.0-2.7) Objective: PHYSICAL EXAMINATION: GENERAL: The patient is a chronically ill-appearing female, in no apparent distress. altered and obtunded. NECK: Supple. There is a central line in the right subclavian area. HEART: Regular rate and rhythm.without MRG LUNGS: reduced with scattered rhonchi; no wheeze ABDOMEN: Soft, nontender, nondistended. no HSM EXTREMITIES: No clubbing, cyanosis, or edema. NEURO: response to pain skin noted heating blanket Micro: Microbiology Date/Time Source Procedure Growth Status 02/19/19 12:00 Urine,Clean Catch Urine Culture - Preliminary Resulted 02/19/19 14:30 Rectal Mucosa Received Accucheck: 72 Jan Anderson MD Feb 20, 2019 09:18
[2019-02-20] MEDS: Pantoprazole Inj IVP SCH ×2 (09:36→21:23)
[2019-02-20] MEDS: Piperacillin/Tazobactam 3.375 GM in NS 110 ML IVPB SCH ×2 (09:36→21:23)
--- NOTE | 2019-02-20 09:52 | NUR ---
NURSE NOTES: Dr. Louis will review laboratory labs and place orders, to increase urine output.
--- NOTE | 2019-02-20 10:35 | NUR ---
*-* NO INSURANCE INFOPRMATION IN THE BAR UNALE TO SEND CLINICALS OR REVIEWS *-*
--- NOTE | 2019-02-20 11:45 | Consultation ---
Consult Note Consult Note asked to evaluate at the request of Dr Reis for renal failure Seen in ICU discussed with RN Hypotensive on Pressors non verbal: ER: Patient brought in with a complaint of abdominal pain. The patient is a poor historian. She does say that her abdomen hurts but she will not characterize it or quantify it. From records: History of atrial fibrillation and COPD. History of diabetes. POLS T reveals full code. No Known Allergies (Unverified , 02/19/19) Past Surgical History: other - g tube Social History Narrative full code Hx Hypertension: Yes Hx COPD: Yes Hx Diabetes: Yes Hx Dialysis: No - CKD . Assessment/Plan Renal failure - ? Acute on Chronic, Partly dehydration Septic Shock UTI AT Fib with FVR h/o DM, proteinuria , HypoAlbuminemia Hydrate 2D echo antibiotics monitor renal parameters avoid nephrotoxics per orders Jt Louis MD Feb 20, 2019 11:45
--- NOTE | 2019-02-20 12:12 | NUR ---
RD ASSESSMENT & RECOMMENDATIONS SEE CARE ACTIVITY FOR COMPLETE ASSESSMENT DAILY ESTIMATED NEEDS: Needs based on Sepsis, diabetes/ 51.4kg 25-35 kcals/kg 1031-2807 total kcals 1-2 g protein/kg 51-102 g total protein 25-30 mL/kg 285-1542 total fluid mLs NUTRITION DIAGNOSIS: * Swallowing difficulty R/T dysphagia as evidenced by h/o PEG, on GT feeding + oral grat on texture modified diet MANAGING PRINCIPAL, NPO at this time. * Increased kcal/prot needs R/T sepsis as evidenced by elev wbc, febrile, elev RR, elev HR, elev LA (11.8 -> 7.6 trend down), hypotensive, on pressor support. CURRENT TF:NPO PO DIET RECOMMENDATIONS: DIRECTOR OF ELEMENTARY EDUCATION EVAL FOR ORAL GRAT IF INDICATED - pt on 4oz pureed + 4oz NTL liquids BID (lunch and dinner) MANAGING PRINCIPAL ENTERAL NUTRITION RECOMMENDATIONS: Glucerna 1.2 @ 55ml/hr x 24 hrs to provide 1320ml, 1584kcal, 79g prot, 1063ml free water * WITH HEMODYNAMIC STABILITY -> initiate Glucerna 1.2 @ 25ml/hr x 6 hrs, advance 10ml q 4-6 hrs as tolerated to goal rate -> HOB over 30 degrees/ water flush per MD * WITHOUT HEMODYNAMIC STABILITY -> rec trophic feeds of Glucerna 1.2 @ 10-15ml/hr x 24 hrs ADDITIONAL RECOMMENDATIONS: * RECALIBRATED BEDSCALE WT Per SNF, HT=65", AP=080gkj (02/14/19) VS EMR il=[id number] * Monitor hemodynamic stability * Once HD stable, consider DIRECTOR OF ELEMENTARY EDUCATION eval for oral grat -> pt on 4oz pureed + 4oz NTL liquids BID (lunch and dinner) MANAGING PRINCIPAL * Monitor lytes closely, need for renal TF formula (elev K 5.4)
--- NOTE | 2019-02-20 12:30 | NUR ---
NURSE NOTES: Lactic acid collected and sent to laboratory,
[2019-02-20] MEDS ORDERED: Norepinephrine Bitartrate 8 MG in D5W 500ml 550 ML IV SCH (13:00)
--- NOTE | 2019-02-20 13:09 | NUR ---
CASE MANAGEMENT:REVIEW 78 YR O[facility] CC: ABDOMINAL PAIN. DISCHARGE FROM [facility] SITE SI: SEPSIS. ABDOMINAL PAIN. DEHYDRATION 98.3 68 20 75/52 99% ON RA WBC+11.0 H/H-9.0/29.9 PLT-80 K+5.5 BUN+53 CR+2.1 LACTIC ACID+11.9 AND 10.6 TROPONIN(+) 0.080 PH-7.317 PCO2-28.6 HCO3-14.3 IS: 1L NS BOLUS X3 IV ZOFRAN IV ZOSYN IV VANCOMYCIN LEVOPHED GTT URINE CX CT ABD/PELVIS CXR : TO ICU Addendum: 02/20/19 at 1609 by DAQUAN LEE, LESLEY SUTTON INTERQUAL CRITERIA MET
--- NOTE | 2019-02-20 13:20 | NUR ---
CONTACT INFORMATION CALLED AND SPOKE WITH SNF'S D.O.N., [place] PATIENT DOESN'T HAVE ANY FAMILY SHE HAS A FRIEND ~ [place] T: [phone] [facility] USES [employer] TO MAKE DECISIONS FOR THIS PATIENT PATIENT'S PRIMARY DOCTOR IS DR OCHOA WHEN PATIENT HAD A CHANGE IN CONDITION THEY CALLED DR OCHOA BUT HE DID NOT RESPOND SO THE SNF CALLED THEIR ONLINE ADVERTISING ANALYST, DR GISEL WOLF. DR WOLF INSTRUCTED THEM TO SEND PATIENT TO [facility]
[2019-02-20] MEDS: Norepinephrine Bitartrate 8 MG in D5W 500ml 492 ML IV SCH ×2 (13:43→20:25)
[2019-02-20] MEDS: Sodium Citrate 30ml GT SCH ×2 (14:14→17:21)
--- NOTE | 2019-02-20 14:30 | NUR ---
NURSE NOTES: Patient suctioned orally due to having clear white frothy sputum around the mouth, patient desaturated to 85% when venturi mask is removed to suction.
--- NOTE | 2019-02-20 14:34 | NUR ---
*-* INSURANCE *-* ALL CLINICALS AND REVIEWS HAVE BEEN FAXED TO: MARGARITA Clement Ref#[id number] CM: Dung #[phone] ext [phone] fax#[phone]
[2019-02-20] MEDS ORDERED: Vancomycin 750mg/NS 275ml IVPB ONE ×2 (15:30)
--- NOTE | 2019-02-20 17:15 | Consultation ---
DATE OF CONSULTATION: 02/20/2019 INFECTIOUS DISEASES CONSULTATION CONSULTING PHYSICIAN: Shelbie Howell M.D. REFERRING PHYSICIAN: Mitchel Reis M.D. REASON FOR CONSULTATION: Septic shock. HISTORY OF PRESENTING ILLNESS: This is a 78-year-old lady with history of atrial fibrillation, congestive heart failure, dementia, hyperlipidemia, psychosis, who [facility] with hypotension, shock, and altered mental status. In the emergency room, she was found to be hypotensive. She was placed on a Venti mask and has been admitted to the ICU. An Infectious Diseases consultation has been obtained for antibiotics. PAST MEDICAL HISTORY: 1. History of atrial fibrillation. 2. Congestive heart failure. 3. Dementia. 4. Psychosis. 5. Hyperlipidemia. 6. Status post G-tube placement. SOCIAL HISTORY: Unknown. FAMILY HISTORY: Unknown. REVIEW OF SYSTEMS: Unable to obtain currently. MEDICATIONS: As an inpatient, she is on Protonix, chlorhexidine gluconate, norepinephrine, sodium citrate, albumin, Zosyn, , lidocaine, subcutaneous heparin, and Tylenol. ALLERGIES: No known drug allergies. PHYSICAL EXAMINATION: VITAL SIGNS: Temperature of 99.5, T-max 99.5, pulse of 128, respiratory rate 29, blood pressure 81/58, O2 saturation of 95%. HEENT: Pupils equally reactive to light and accommodation. Mouth appears clean without thrush. NECK: Supple. No adenopathy. No JVD. CARDIOVASCULAR: Regular rate and rhythm. No murmurs. LUNGS: Clear to auscultation bilaterally. No crackles. No wheezes. ABDOMEN: Soft and nontender. G-tube site appears clean. EXTREMITIES: No cyanosis, no clubbing, no edema. Right IJ catheter noted. LABORATORY AND DIAGNOSTIC DATA: White count 13.2, hemoglobin 8.7, hematocrit 29, MCV 112, and platelet count of 98. Sodium 136, potassium 5.4, chloride 101, bicarb 20, BUN 54, creatinine 2.1, glucose 125, calcium 7.5. Total bilirubin 3. AST 68, ALT 28, alkaline phosphatase 119. Total protein 6.3. Albumin 2.2. Lipase of 170. UA showing 30 to 40 white cells. Urine cultures are pending. Chest x-ray showing right IJ catheter noted. [id number]-[id number] cardiomegaly. CT abdomen and pelvis showing [id number] ascites, trace bilateral pleural effusion, bibasilar atelectasis and infiltrate noted, trace pericardial effusion noted, atherosclerotic vascular disease, generalized cardiomegaly, anasarca noted. ASSESSMENT: This is a 78-year-old lady with history of atrial fibrillation, CHF, hyperlipidemia, who came in with hypotension and shock and was found to have. 1. Probable urinary tract infection. Cultures are negative so far. 2. Congestive heart failure. 3. Dementia. 4. Septic shock. PLAN: 1. Continue IV vancomycin and Zosyn. 2. We will follow up cultures and adjust antibiotics accordingly. I would like to thank, Dr. Reis, for this consultation. Shelbie Howell M.D. DR: MIYA JOB#: [id number] CC: Mitchel Reis M.D.
--- NOTE | 2019-02-20 18:02 | Cardiology Report ---
APPROVED REPORT EXAM: Two-dimensional and M-mode echocardiogram with Doppler and color Doppler. INDICATION Congestive Heart Failure M-Mode DIMENSIONS IVSd1.0 (0.7-1.1cm)Left Atrium (MM)3.6 (1.6-4.0cm) LVDd4.5 (3.5-5.6cm)Aortic Root2.9 (2.0-3.7cm) PWd0.7 (0.7-1.1cm)Aortic Cusp Exc.1.9 (1.5-2.0cm) IVSs1.3 cm LVDs3.6 (2.5-4.0cm) PWs1.2 cm Normal left ventricular chamber size. The septum is hypokinetic and asynchronous due to the RV volume overload. All other remaining segments of LV seem to have normal wall motion. Left ventricle D-shape pattern / diastolic septal flattening suggestive of right ventricular volume overload. Left ventricular ejection fraction estimated to be 40 %. No left ventricular hypertrophy. Small posterior pericardial effusion. Moderate left atrial enlargement. Moderate right ventricular and right atrial enlargement. RV hypokinesis Focal aortic valve sclerosis with adequate cusp excursion. Thickened mitral valve leaflets with normal excursion. Mitral annulus and aortic root calcification. Normal pulmonic valve structure. Normal tricuspid valve structure. IVC dilated at 2.9 cm and non-collapsible with respiration indicate increased RA pressure. A color flow and spectral Doppler study was performed and revealed: Mild aortic insufficiency. Mild mitral regurgitation. Left ventricular diastolic function not determined due to arrhythmia. Moderate to severe tricuspid regurgitation. Tricuspid systolic velocities suggests peak right ventricular systolic pressure of 76 mmHg, consistent with severe pulmonary hypertension. Pulmonic regurgitation present.
--- NOTE | 2019-02-20 18:10 | NUR ---
NURSE NOTES: Lactic Acid collected from central line and sent to laboratory. remains saturating at 94-95% with venturi mask at 31%. Levophed remains being titrated.
--- NOTE | 2019-02-20 19:33 | NUR ---
HAND-OFF: Report given to ANDREINA Reis.
--- NOTE | 2019-02-20 20:00 | NUR ---
NURSE NOTES: Pt had x1 soft brownish stool, moderate in amt.cleaned up pt.
[2019-02-20] MEDS: Dyna-Hex 2% Top Sol 2oz TOPIC SCH (20:08)
[2019-02-20] MEDS: Phenylephrine 100 MG in NS 240 ML IV SCH (20:15)
--- NOTE | 2019-02-20 21:59 | NUR ---
NURSE NOTES: Bp 88/56 Afib 120s, On Levophed drip at 20mcg/min Will continue to monitor if in need of another pressors.
[2019-02-21] VITALS (61 sets, daily range): BP systolic 31–158; BP diastolic 12–107
[2019-02-21] MEDS: Sodium Citrate 30ml GT SCH ×4 (00:21→21:00)
[2019-02-21] MEDS: Norepinephrine Bitartrate 8 MG in D5W 500ml 492 ML IV SCH ×3 (03:15→21:00)
[2019-02-21 05:14] LABS: HEMOGLOBIN 7.6 G/DL (12.0-16.0); MEAN CORPUSCULAR VOLUME 109 FL (80-99); PLATELET COUNT 93 K/UL (150-450); RED BLOOD COUNT 2.28 M/UL (4.20-5.40); RED CELL DISTRIBUTION WIDTH 17.2 % (11.6-14.8); WHITE BLOOD COUNT 12.8 K/UL (4.8-10.8)
[2019-02-21 05:45] LABS: AMMONIA 119 umol/L (11-32)
--- NOTE | 2019-02-21 06:00 | Progress Note ---
DATE: 02/20/2019 CARDIOLOGY PROGRESS NOTE SUBJECTIVE: The patient remains in the intensive care unit. She continues on pressor support with norepinephrine. Blood pressure parameters remained tenuous, mostly in the 80 to 90 systolic range. Monitor reveals atrial fibrillation, rate 110 to 130, respiratory rate 24 to 29. The patient has been afebrile. PHYSICAL EXAMINATION: LUNGS: Diminished breath sounds. Few rhonchi. HEART: Irregularly irregular rhythm. Normal S1, S2. ABDOMEN: Soft. EXTREMITIES: 2+ edema. There is a right IJ catheter in place. LABORATORY DATA: White count 13, hemoglobin 8.7. Lactic acid remains elevated at 5. Potassium 5.4, BUN 54 creatinine 2.1. Albumin 3.2. IMPRESSION: 1. Sepsis shock. 2. Hypovolemia. 3. Urinary tract infection. 4. Lactic acidosis. 5. Acute on chronic renal failure. 6. Atrial fibrillation with increased ventricular response. 7. Diabetes mellitus type 2. 8. History of COPD. 9. Pericardial effusion of no hemodynamic significance. 10. Pulmonary hypertension PLAN: 1. Volume resuscitation. 2. Taper off pressors. 3. Antimicrobials. 4. Respiratory hygiene. 5. Stress ulcer and DVT prophylaxis. 6. No rate control agents until off pressors. 7. Insulin coverage by sliding scale. 8. Respiratory hygiene. 9. Venous duplex scan of LE's and possible V/Q scan to follow. Jimmie Mason M.D. DR: Corry JOB#: [id number] CC: CHRISTINE
[2019-02-21 06:10] LABS: ALANINE AMINOTRANSFERASE 35 U/L (12-78); ALBUMIN 2.5 G/DL (3.4-5.0); ALBUMIN/GLOBULIN RATIO 0.7 (1.0-2.7); ALKALINE PHOSPHATASE 88 U/L (46-116); ANION GAP 9 mmol/L (5-15); ASPARTATE AMINO TRANSFERASE 64 U/L (15-37); BILIRUBIN,TOTAL 2.3 MG/DL (0.2-1.0); BLOOD UREA NITROGEN 57 mg/dL (7-18); CALCIUM 6.5 MG/DL (8.5-10.1); CARBON DIOXIDE 23 MMOL/L (21-32); CHLORIDE 99 MMOL/L (98-107); CHOLESTEROL < 50 MG/DL (< 200); CREATINE KINASE 216 U/L (26-308); CREATININE 2.2 MG/DL (0.55-1.30); FERRITIN 158 NG/ML (8-388); GAMMA GLUTAMYL TRANSPEPTIDASE 37 U/L (5-85); HDL CHOLESTEROL 9 MG/DL (40-60); PHOSPHORUS 4.2 MG/DL (2.5-4.9); POTASSIUM 4.5 MMOL/L (3.5-5.1); SODIUM 131 MMOL/L (136-145); TRIGLYCERIDES 27 MG/DL (30-150)
[2019-02-21 06:36] LABS: BILIRUBIN,DIRECT 1.5 MG/DL (0.0-0.3)
[2019-02-21 06:46] LABS: % IRON SATURATION 14 % (15-50); IRON 21 ug/dL (50-175); TOTAL IRON BINDING CAPACITY 150 ug/dL (250-450)
--- NOTE | 2019-02-21 07:30 | NUR ---
HAND-OFF: Report given to Odette HDZ.
--- NOTE | 2019-02-21 07:40 | NUR ---
NURSE NOTES: Report received from Pat HDZ. Pt awake, alert x 1, arousable to light stimulation. 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 Pt on 30% venturi mask saturating 100%. GT with leaking, pt clamped and NPO for now. Pt had loose BM. Gross noted and intact with small urine output. RIJ noted with some oozing at the site. Pt for PICC today Levophed at 11 mcg/kg/min and NS @ 100cc/hr. Safety measures in place with bed locked and in lowest position, side rails x3 up and bed alarm on. Will continue to monitor and continue plan of care.
--- NOTE | 2019-02-21 08:12 | General Progress Note ---
Assessment/Plan Problem List: (1) Septic shock ICD Codes: A41.9 - Sepsis, unspecified organism; R65.21 - Severe sepsis with septic shock SNOMED: 40001752 (2) UTI (urinary tract infection) ICD Codes: N39.0 - Urinary tract infection, site not specified SNOMED: 41106965 Qualifiers: Qualified Codes: N39.0 - Urinary tract infection, site not specified (3) Renal failure ICD Codes: N19 - Unspecified kidney failure SNOMED: 10070161 Qualifiers: Qualified Codes: N17.9 - Acute kidney failure, unspecified (4) Abdominal pain ICD Codes: R10.9 - Unspecified abdominal pain SNOMED: 43573288 Qualifiers: Qualified Codes: R10.32 - Left lower quadrant pain (5) Severe sepsis ICD Codes: A41.9 - Sepsis, unspecified organism; R65.20 - Severe sepsis without septic shock SNOMED: 91009696 (6) Dehydration ICD Codes: E86.0 - Dehydration SNOMED: 86634844 (7) Atrial fibrillation with rapid ventricular response ICD Codes: I48.91 - Unspecified atrial fibrillation SNOMED: 576177518249844 Status: unchanged Assessment/Plan: picc line needed for pressors to confused to consent. needed for potentially life saving pressors and abx wean pressors as able ivf monitor renal fxn/lytes cont iv abx follow up cultures id/cards/critical care/renal appreciated PPI dvt/prophylaxis very poor prognosis full code per polst in the chart Subjective ROS Limited/Unobtainable: No Constitutional: Reports: malaise, weakness HEENT: Reports: no symptoms Cardiovascular: Reports: no symptoms Respiratory: Reports: no symptoms Gastrointestinal/Abdominal: Reports: difficulty swallowing Genitourinary: Reports: no symptoms Neurologic/Psychiatric: Reports: pre-existing deficit Endocrine: Reports: no symptoms Hematologic/Lymphatic: Reports: no symptoms Allergies: Coded Allergies: No Known Allergies (Unverified , 02/19/19) All Systems: reviewed and negative except above Subjective no change, poorly responsive, on face mask. remains on iv pressors. unable to wean. multiple abx. Objective Last 24 Hour Vital Signs Date Time Temp Pulse Resp B/P (MAP) Pulse Ox O2 Delivery O2 Flow Rate FiO2 02/21/19 07:30 133 24 31/15 (20) 99 02/21/19 07:29 99 Venturi Mask 4.0 31 02/21/19 07:00 94/66 02/21/19 07:00 131 20 94/66 (75) 99 02/21/19 06:30 129 23 94/66 (75) 98 02/21/19 06:00 133 23 89/69 (76) 98 02/21/19 06:00 118/73 02/21/19 05:30 135 25 118/94 (102) 95 02/21/19 05:00 132 28 96/71 (79) 98 02/21/19 05:00 101/76 02/21/19 04:30 129 26 103/78 (86) 97 02/21/19 04:00 Venturi Mask 02/21/19 04:00 129 23 107/79 (88) 98 02/21/19 04:00 90/65 02/21/19 04:00 128 02/21/19 03:30 130 23 98/77 (84) 96 02/21/19 03:15 122 24 103/78 (86) 95 02/21/19 03:15 109/67 02/21/19 03:00 103/78 02/21/19 03:00 131 25 109/67 (81) 97 02/21/19 02:30 126 20 94/69 (77) 02/21/19 02:15 126 19 109/84 (92) 02/21/19 02:00 109/84 02/21/19 02:00 130 21 108/76 (87) 02/21/19 01:45 129 26 98/68 (78) 02/21/19 01:30 128 24 107/79 (88) 02/21/19 01:00 102/65 02/21/19 01:00 126 22 93/66 (75) 02/21/19 00:30 124 25 115/69 (84) 02/21/19 00:00 123 24 88/67 (74) 94 02/21/19 00:00 77/58 02/21/19 00:00 Venturi Mask 02/20/19 23:30 129 25 100/67 (78) 96 02/20/19 23:00 129 29 124/77 (93) 95 02/20/19 23:00 84/69 02/20/19 22:30 123 24 81/67 (72) 94 02/20/19 22:15 127 28 91/63 (72) 95 02/20/19 22:00 91/63 02/20/19 22:00 128 31 107/66 (80) 94 02/20/19 21:30 123 28 102/70 (81) 95 02/20/19 21:23 83/63 02/20/19 21:00 125 29 93/64 (74) 96 02/20/19 20:30 119 31 71/55 (60) 94 02/20/19 20:25 96/75 02/20/19 20:15 130 107/78 02/20/19 20:00 121 02/20/19 20:00 98.8 120 30 93/49 (64) 94 02/20/19 20:00 Venturi Mask 02/20/19 19:45 123 31 123/78 (93) 96 02/20/19 19:30 125 33 110/68 (82) 95 02/20/19 19:18 95 Venturi Mask 4.0 31 02/20/19 19:00 95/73 02/20/19 19:00 131 31 95/73 (80) 95 02/20/19 18:30 132 31 94/64 (74) 95 02/20/19 18:00 130 32 106/79 (88) 95 02/20/19 18:00 106/79 02/20/19 17:30 84/59 02/20/19 17:30 129 31 94/64 (74) 94 02/20/19 17:00 130 32 92/68 (76) 94 02/20/19 17:00 92/68 02/20/19 16:30 130 31 88/71 (77) 94 02/20/19 16:00 31 02/20/19 16:00 95/62 02/20/19 16:00 Venturi Mask 02/20/19 16:00 124 02/20/19 16:00 99.5 134 32 95/62 (73) 95 02/20/19 15:30 128 31 93/63 (73) 95 02/20/19 15:00 126 31 95/58 (70) 95 02/20/19 15:00 95/58 02/20/19 14:30 126 30 91/57 (68) 95 02/20/19 14:15 88/66 02/20/19 14:00 125 30 90/69 (76) 95 02/20/19 14:00 90/59 02/20/19 13:43 90/57 02/20/19 13:30 124 29 90/57 (68) 94 02/20/19 13:00 123 29 65/45 (52) 94 02/20/19 12:30 121 28 95/77 (83) 95 02/20/19 12:00 121 02/20/19 12:00 99.5 127 29 92/61 (71) 94 02/20/19 12:00 92/61 02/20/19 12:00 Venturi Mask 02/20/19 12:00 31 02/20/19 11:45 81/58 02/20/19 11:30 128 29 86/56 (66) 94 02/20/19 11:30 86/56 02/20/19 11:00 128 30 75/55 (62) 95 02/20/19 10:30 70/55 02/20/19 10:30 128 29 88/59 (69) 95 02/20/19 10:00 129 29 86/55 (65) 95 02/20/19 10:00 69/56 02/20/19 09:30 118/100 02/20/19 09:15 99/81 02/20/19 09:00 99/81 02/20/19 09:00 99/71 02/20/19 09:00 128 29 118/100 (106) 95 02/20/19 08:30 131 29 94/58 (70) 89 Intake and Output 02/20/19 02/21/19 19:00 07:00 Intake Total 2761.125 ml 2035.0 ml Output Total 235 ml 200 ml Balance 2526.125 ml 1835.0 ml Intake Free Water 70 ml IV Total 2611.125 ml 2035.0 ml Other 80 ml Output Urine Total 235 ml 200 ml # Bowel Movements 2 Laboratory Tests 02/20/19 11:54: Lactic Acid Level 6.40H 02/20/19 12:15: Random Vancomycin Level 14.9 02/20/19 14:10: Lactic Acid Level 5.20H, Urine Random Sodium < 20L 02/20/19 17:59: Lactic Acid Level 5.10H 02/20/19 21:15: Lactic Acid Level 5.00H 02/21/19 04:20: White Blood Count 12.8H, Red Blood Count 2.28L, Hemoglobin 7.6L, Hematocrit 25.0L, Mean Corpuscular Volume 109H, Mean Corpuscular Hemoglobin 33.4H, Mean Corpuscular Hemoglobin Concent 30.6L, Red Cell Distribution Width 17.2H, Platelet Count 93L, Mean Platelet Volume 6.7, Neutrophils (%) (Auto) , Lymphocytes (%) (Auto) , Monocytes (%) (Auto) , Eosinophils (%) (Auto) , Basophils (%) (Auto) , Neutrophils % (Manual) [Pending], Lymphocytes % (Manual) [Pending], Platelet Estimate [Pending], Platelet Morphology [Pending], Sodium Level 131L, Potassium Level 4.5, Chloride Level 99, Carbon Dioxide Level 23, Anion Gap 9, Blood Urea Nitrogen 57H, Creatinine 2.2H, Estimat Glomerular Filtration Rate , Glucose Level 194H, Uric Acid 8.6H, Calcium Level 6.5L, Phosphorus Level 4.2, Magnesium Level 2.2, Iron Level 21L, Total Iron Binding Capacity 150L, Percent Iron Saturation 14L, Unsaturated Iron Binding 129, Ferritin 158, Total Bilirubin 2.3H, Direct Bilirubin 1.5H, Gamma Glutamyl Transpeptidase 37, Aspartate Amino Transf (AST/SGOT) 64H, Alanine Aminotransferase (ALT/SGPT) 35, Alkaline Phosphatase 88, Ammonia 119H, Total Creatine Kinase 216, Troponin I 0.206H, C-Reactive Protein, Quantitative 7.3H, Pro-B-Type Natriuretic Peptide 92888I, Total Protein 6.0L, Albumin 2.5L, Globulin 3.5, Albumin/Globulin Ratio 0.7L, Triglycerides Level 27L, Cholesterol Level < 50, LDL Cholesterol 29, HDL Cholesterol 9L, Cholesterol/HDL Ratio 5.6H, Vitamin B12 Level 1915H, Folate 38.7, Thyroid Stimulating Hormone (TSH) 3.456 02/21/19 07:25: Lactic Acid Level [Pending] Height (Feet): 5 Height (Inches): 6.00 Weight (Pounds): 138 Objective General Appearance: WD/WN, confused. awake but nonverbal Neck: supple Cardiovascular: irregularly irregular Respiratory/Chest: chest wall non-tender, lungs clear, normal breath sounds, no respiratory distress Abdomen: normal bowel sounds, non tender, soft, no organomegaly Edema: no edema noted Arm (L), no edema noted Arm (R), no edema noted Leg (L), no edema noted Leg (R), no edema noted Pedal (L), no edema noted Pedal (R), no edema noted Generalized Neurologic: disoriented Mitchel Reis MD Feb 21, 2019 08:12
[2019-02-21] MEDS: Pantoprazole Inj IVP SCH ×2 (08:38→21:00)
[2019-02-21] MEDS: Piperacillin/Tazobactam 3.375 GM in NS 110 ML IVPB SCH ×2 (08:38→21:02)
--- NOTE | 2019-02-21 09:33 | NUR ---
NURSE NOTES: Dr Saldana here to assess, GT and leaking. Pt is distended. Dr Reis ordered ABG for labored breathing. Radiology here to set up pt for PICC line. Will continue to monitor.
--- NOTE | 2019-02-21 09:46 | NUR ---
CASE MANAGEMENT:REVIEW 02/21/19 SI: SEPSIS. UTI RENAL FAILURE. HYPOTENSION 97.5 139 24 100/80 99% ON VENTURI MASK WBC+12.8 H/H-7.6/25.0 PLT-93 NA-131 BUN+57 CR+2.2 TROPONIN(+) 0.206 IS: LEVOPHED GTT IV ZOSYN Q12 IV PROTONIX Q12 IVF@100/HR : ICU STATUS DCP: FROM [facility]
--- NOTE | 2019-02-21 10:38 | Infectious Diseases Prog Note ---
Assessment/Plan Assessment/Plan antibiotics ; vancomycin iv, zosyn A 1. pneumonia 2. fungal UTI 3. renal failure 4. septic shock 5. CHF 6. dementia P 1. continue zosyn 2. d/c iv vancomycin 3. start fluconazole 4. will follow up cultures Subjective ROS Limited/Unobtainable: Yes Allergies: Coded Allergies: No Known Allergies (Unverified , 02/19/19) Objective Vital Signs Last 24 Hour Vital Signs Date Time Temp Pulse Resp B/P (MAP) Pulse Ox O2 Delivery O2 Flow Rate FiO2 02/21/19 10:00 134 22 99/75 (83) 02/21/19 09:30 128 21 112/86 (95) 96 02/21/19 09:00 135 25 96/69 (78) 02/21/19 08:30 133 19 109/81 (90) 02/21/19 08:00 97.5 139 24 100/80 (87) 02/21/19 08:00 Venturi Mask 02/21/19 08:00 130 02/21/19 07:30 133 24 31/15 (20) 99 02/21/19 07:29 99 Venturi Mask 4.0 31 02/21/19 07:00 94/66 02/21/19 07:00 131 20 94/66 (75) 99 02/21/19 06:30 129 23 94/66 (75) 98 02/21/19 06:00 133 23 89/69 (76) 98 02/21/19 06:00 118/73 02/21/19 05:30 135 25 118/94 (102) 95 02/21/19 05:00 132 28 96/71 (79) 98 02/21/19 05:00 101/76 02/21/19 04:30 129 26 103/78 (86) 97 02/21/19 04:00 Venturi Mask 02/21/19 04:00 129 23 107/79 (88) 98 02/21/19 04:00 90/65 02/21/19 04:00 128 02/21/19 03:30 130 23 98/77 (84) 96 02/21/19 03:15 122 24 103/78 (86) 95 02/21/19 03:15 109/67 02/21/19 03:00 103/78 02/21/19 03:00 131 25 109/67 (81) 97 02/21/19 02:30 126 20 94/69 (77) 02/21/19 02:15 126 19 109/84 (92) 02/21/19 02:00 109/84 02/21/19 02:00 130 21 108/76 (87) 02/21/19 01:45 129 26 98/68 (78) 02/21/19 01:30 128 24 107/79 (88) 02/21/19 01:00 102/65 02/21/19 01:00 126 22 93/66 (75) 02/21/19 00:30 124 25 115/69 (84) 02/21/19 00:00 123 24 88/67 (74) 94 02/21/19 00:00 77/58 02/21/19 00:00 Venturi Mask 02/20/19 23:30 129 25 100/67 (78) 96 02/20/19 23:00 129 29 124/77 (93) 95 02/20/19 23:00 84/69 02/20/19 22:30 123 24 81/67 (72) 94 02/20/19 22:15 127 28 91/63 (72) 95 02/20/19 22:00 91/63 02/20/19 22:00 128 31 107/66 (80) 94 02/20/19 21:30 123 28 102/70 (81) 95 02/20/19 21:23 83/63 02/20/19 21:00 125 29 93/64 (74) 96 02/20/19 20:30 119 31 71/55 (60) 94 02/20/19 20:25 96/75 02/20/19 20:15 130 107/78 02/20/19 20:00 121 02/20/19 20:00 98.8 120 30 93/49 (64) 94 02/20/19 20:00 Venturi Mask 02/20/19 19:45 123 31 123/78 (93) 96 02/20/19 19:30 125 33 110/68 (82) 95 02/20/19 19:18 95 Venturi Mask 4.0 31 02/20/19 19:00 95/73 02/20/19 19:00 131 31 95/73 (80) 95 02/20/19 18:30 132 31 94/64 (74) 95 02/20/19 18:00 130 32 106/79 (88) 95 02/20/19 18:00 106/79 02/20/19 17:30 84/59 02/20/19 17:30 129 31 94/64 (74) 94 02/20/19 17:00 130 32 92/68 (76) 94 02/20/19 17:00 92/68 02/20/19 16:30 130 31 88/71 (77) 94 02/20/19 16:00 31 02/20/19 16:00 95/62 02/20/19 16:00 Venturi Mask 02/20/19 16:00 124 02/20/19 16:00 99.5 134 32 95/62 (73) 95 02/20/19 15:30 128 31 93/63 (73) 95 02/20/19 15:00 126 31 95/58 (70) 95 02/20/19 15:00 95/58 02/20/19 14:30 126 30 91/57 (68) 95 02/20/19 14:15 88/66 02/20/19 14:00 125 30 90/69 (76) 95 02/20/19 14:00 90/59 02/20/19 13:43 90/57 02/20/19 13:30 124 29 90/57 (68) 94 02/20/19 13:00 123 29 65/45 (52) 94 02/20/19 12:30 121 28 95/77 (83) 95 02/20/19 12:00 121 02/20/19 12:00 99.5 127 29 92/61 (71) 94 02/20/19 12:00 92/61 02/20/19 12:00 Venturi Mask 02/20/19 12:00 31 02/20/19 11:45 81/58 02/20/19 11:30 128 29 86/56 (66) 94 02/20/19 11:30 86/56 02/20/19 11:00 128 30 75/55 (62) 95 Height (Feet): 5 Height (Inches): 6.00 Weight (Pounds): 138 Respiratory/Chest: lungs clear Cardiovascular: normal rate, regular rhythm, no gallop/murmur Abdomen: soft, non tender Extremities: no edema, other - left arm PICC Microbiology Date/Time Source Procedure Growth Status 02/19/19 11:15 Blood Blood Culture - Preliminary NO GROWTH AFTER 24 HOURS Resulted 02/19/19 11:00 Blood Blood Culture - Preliminary NO GROWTH AFTER 24 HOURS Resulted 02/19/19 14:30 Nasal Nares MRSA Culture - Final NO METHICILLIN RESISTANT STAPH AUREUS... Complete 02/19/19 12:00 Urine,Clean Catch Urine Culture - Preliminary YEAST Resulted 02/19/19 14:30 Rectal Mucosa VRE Culture - Final Enterococcus Faecium - Vre Complete Laboratory Tests Test 02/20/19 11:54 02/20/19 12:15 02/20/19 14:10 02/20/19 17:59 Lactic Acid Level 6.40 mmol/L (0.4-2.0) H 5.20 mmol/L (0.66-2.22) H 5.10 mmol/L (0.4-2.0) H Random Vancomycin Level 14.9 ug/mL Urine Random Sodium < 20 mmol/L (20-110) L Test 02/20/19 21:15 02/21/19 04:20 02/21/19 06:00 02/21/19 07:25 Lactic Acid Level 5.00 mmol/L (0.66-2.22) H 3.50 mmol/L (0.4-2.0) H White Blood Count 12.8 K/UL (4.8-10.8) H Red Blood Count 2.28 M/UL (4.20-5.40) L Hemoglobin 7.6 G/DL (12.0-16.0) L Hematocrit 25.0 % (37.0-47.0) L Mean Corpuscular Volume 109 FL (80-99) H Mean Corpuscular Hemoglobin 33.4 PG (27.0-31.0) H Mean Corpuscular Hemoglobin Concent 30.6 G/DL (32.0-36.0) L Red Cell Distribution Width 17.2 % (11.6-14.8) H Platelet Count 93 K/UL (150-450) L Mean Platelet Volume 6.7 FL (6.5-10.1) Neutrophils (%) (Auto) % (45.0-75.0) Lymphocytes (%) (Auto) % (20.0-45.0) Monocytes (%) (Auto) % (1.0-10.0) Eosinophils (%) (Auto) % (0.0-3.0) Basophils (%) (Auto) % (0.0-2.0) Differential Total Cells Counted 100 Neutrophils % (Manual) 85 % (45-75) H Lymphocytes % (Manual) 8 % (20-45) L Monocytes % (Manual) 7 % (1-10) Eosinophils % (Manual) 0 % (0-3) Basophils % (Manual) 0 % (0-2) Band Neutrophils 0 % (0-8) Platelet Estimate Decreased L Platelet Morphology Normal Hypochromasia 3+ Anisocytosis 1+ Macrocytosis 1+ Sodium Level 131 MMOL/L (136-145) L Potassium Level 4.5 MMOL/L (3.5-5.1) Chloride Level 99 MMOL/L (98-107) Carbon Dioxide Level 23 MMOL/L (21-32) Anion Gap 9 mmol/L (5-15) Blood Urea Nitrogen 57 mg/dL (7-18) H Creatinine 2.2 MG/DL (0.55-1.30) H Estimat Glomerular Filtration Rate mL/min (>60) Glucose Level 194 MG/DL (74-106) H Uric Acid 8.6 MG/DL (2.6-7.2) H Calcium Level 6.5 MG/DL (8.5-10.1) L Phosphorus Level 4.2 MG/DL (2.5-4.9) Magnesium Level 2.2 MG/DL (1.8-2.4) Iron Level 21 ug/dL (50-175) L Total Iron Binding Capacity 150 ug/dL (250-450) L Percent Iron Saturation 14 % (15-50) L Unsaturated Iron Binding 129 ug/dL (112-346) Ferritin 158 NG/ML (8-388) Total Bilirubin 2.3 MG/DL (0.2-1.0) H Direct Bilirubin 1.5 MG/DL (0.0-0.3) H Gamma Glutamyl Transpeptidase 37 U/L (5-85) Aspartate Amino Transf (AST/SGOT) 64 U/L (15-37) H Alanine Aminotransferase (ALT/SGPT) 35 U/L (12-78) Alkaline Phosphatase 88 U/L (46-116) Ammonia 119 umol/L (11-32) H Total Creatine Kinase 216 U/L (26-308) Troponin I 0.206 ng/mL (0.000-0.056) C-Reactive Protein, Quantitative 7.3 mg/dL (0.00-0.90) H Pro-B-Type Natriuretic Peptide 02811 pg/mL (0-125) H Total Protein 6.0 G/DL (6.4-8.2) L Albumin 2.5 G/DL (3.4-5.0) L Globulin 3.5 g/dL Albumin/Globulin Ratio 0.7 (1.0-2.7) L Triglycerides Level 27 MG/DL (30-150) L Cholesterol Level < 50 MG/DL (< 200) LDL Cholesterol 29 mg/dL (<100) HDL Cholesterol 9 MG/DL (40-60) L Cholesterol/HDL Ratio 5.6 (3.3-4.4) H Vitamin B12 Level 1915 PG/ML (193-986) H Folate 38.7 NG/ML (8.6-58.9) Thyroid Stimulating Hormone (TSH) 3.456 uiU/mL (0.358-3.740) Urine Eosinophils Pending Test 02/21/19 09:10 02/21/19 10:05 Arterial Blood pH 7.284 (7.350-7.450) Arterial Blood Partial Pressure CO2 43.4 mmHg (35.0-45.0) Arterial Blood Partial Pressure O2 72.9 mmHg (75.0-100.0) L Arterial Blood HCO3 20.1 mmol/L (22.0-26.0) L Arterial Blood Oxygen Saturation 92.0 % (95-100) L Arterial Blood Base Excess -6.1 (-2-2) L Melchor Test Positive Lactic Acid Level Pending Current Medications Medications (Trade) Dose Ordered Sig/Pam Route PRN Reason Start Time Stop Time Status Last Admin Dose Admin Acetaminophen (Tylenol) 650 mg Q4H PRN ORAL Mild Pain/Temp > 100.5 02/19/19 17:15 03/21/19 17:14 Chlorhexidine Gluconate (Dayna-Hex 2%) 1 applic DAILY@2000 TOPIC 02/20/19 20:00 03/22/19 19:59 02/20/19 20:08 Norepinephrine Bitartrate 8 mg/ Dextrose 500 ml @ 0 mls/hr Q24H IV 02/20/19 13:00 03/22/19 12:59 02/21/19 03:15 Pantoprazole (Protonix) 40 mg Q12HR IVP 02/20/19 21:00 03/21/19 17:59 02/21/19 08:38 Phenylephrine HCl 100 mg/Sodium Chloride 250 ml @ 0 mls/hr Q24H IV 02/19/19 20:15 03/21/19 20:14 Piperacillin Sod/ Tazobactam Sod 3.375 gm/Sodium Chloride 110 ml @ 27.5 mls/hr Q12HR IVPB 02/19/19 21:00 02/26/19 20:59 02/21/19 08:38 Sodium Chloride 1,000 ml @ 100 mls/hr Q10H IV 02/19/19 17:15 03/21/19 17:14 02/21/19 03:16 Sodium Citrate (Bicitra) 30 ml EVERY 6 HOURS GT 02/20/19 12:00 03/22/19 11:59 02/21/19 06:22 Vancomycin HCl (Vanco rx to dose) 1 ea DAILY PRN MISC Per rx protocol 02/19/19 17:15 03/21/19 17:14 Shelbie Howell MD Feb 21, 2019 10:37
--- NOTE | 2019-02-21 10:47 | NUR ---
RADIOLOGY NOTE: LEFT UPPER EXTREMITY PICC PLACED.
[2019-02-21] MEDS: Fluconazole 100mg tab ORAL SCH (11:07)
--- NOTE | 2019-02-21 11:16 | Nephrology Progress Note ---
Assessment/Plan Problem List: (1) Renal failure (2) Atrial fibrillation with rapid ventricular response (3) Septic shock (4) Cardiomyopathy Assessment Renal failure - ? Acute on Chronic, Partly dehydration Septic Shock UTI AT Fib with FVR h/o DM, proteinuria , HypoAlbuminemia Plan slow Hydrate pressors ? Dobutamin 2D echo EjFx 40% antibiotics monitor renal parameters avoid nephrotoxics per orders Objective Objective Last 24 Hour Vital Signs Date Time Temp Pulse Resp B/P (MAP) Pulse Ox O2 Delivery O2 Flow Rate FiO2 02/21/19 11:00 128 24 122/75 (91) 98 02/21/19 10:36 99/75 02/21/19 10:30 133 19 111/77 (88) 100 02/21/19 10:00 134 22 99/75 (83) 02/21/19 09:30 128 21 112/86 (95) 96 02/21/19 09:00 135 25 96/69 (78) 02/21/19 08:30 133 19 109/81 (90) 02/21/19 08:00 97.5 139 24 100/80 (87) 02/21/19 08:00 Venturi Mask 02/21/19 08:00 130 02/21/19 07:30 133 24 31/15 (20) 99 02/21/19 07:29 99 Venturi Mask 4.0 31 02/21/19 07:00 94/66 02/21/19 07:00 131 20 94/66 (75) 99 02/21/19 06:30 129 23 94/66 (75) 98 02/21/19 06:00 133 23 89/69 (76) 98 02/21/19 06:00 118/73 02/21/19 05:30 135 25 118/94 (102) 95 02/21/19 05:00 132 28 96/71 (79) 98 02/21/19 05:00 101/76 02/21/19 04:30 129 26 103/78 (86) 97 02/21/19 04:00 Venturi Mask 02/21/19 04:00 129 23 107/79 (88) 98 02/21/19 04:00 90/65 02/21/19 04:00 128 02/21/19 03:30 130 23 98/77 (84) 96 02/21/19 03:15 122 24 103/78 (86) 95 02/21/19 03:15 109/67 02/21/19 03:00 103/78 02/21/19 03:00 131 25 109/67 (81) 97 02/21/19 02:30 126 20 94/69 (77) 02/21/19 02:15 126 19 109/84 (92) 02/21/19 02:00 109/84 02/21/19 02:00 130 21 108/76 (87) 02/21/19 01:45 129 26 98/68 (78) 02/21/19 01:30 128 24 107/79 (88) 02/21/19 01:00 102/65 02/21/19 01:00 126 22 93/66 (75) 02/21/19 00:30 124 25 115/69 (84) 02/21/19 00:00 123 24 88/67 (74) 94 02/21/19 00:00 77/58 02/21/19 00:00 Venturi Mask 02/20/19 23:30 129 25 100/67 (78) 96 02/20/19 23:00 129 29 124/77 (93) 95 02/20/19 23:00 84/69 02/20/19 22:30 123 24 81/67 (72) 94 02/20/19 22:15 127 28 91/63 (72) 95 02/20/19 22:00 91/63 02/20/19 22:00 128 31 107/66 (80) 94 02/20/19 21:30 123 28 102/70 (81) 95 02/20/19 21:23 83/63 02/20/19 21:00 125 29 93/64 (74) 96 02/20/19 20:30 119 31 71/55 (60) 94 02/20/19 20:25 96/75 02/20/19 20:15 130 107/78 02/20/19 20:00 121 02/20/19 20:00 98.8 120 30 93/49 (64) 94 02/20/19 20:00 Venturi Mask 02/20/19 19:45 123 31 123/78 (93) 96 02/20/19 19:30 125 33 110/68 (82) 95 02/20/19 19:18 95 Venturi Mask 4.0 31 02/20/19 19:00 95/73 02/20/19 19:00 131 31 95/73 (80) 95 02/20/19 18:30 132 31 94/64 (74) 95 02/20/19 18:00 130 32 106/79 (88) 95 02/20/19 18:00 106/79 02/20/19 17:30 84/59 02/20/19 17:30 129 31 94/64 (74) 94 02/20/19 17:00 130 32 92/68 (76) 94 02/20/19 17:00 92/68 02/20/19 16:30 130 31 88/71 (77) 94 02/20/19 16:00 31 02/20/19 16:00 95/62 02/20/19 16:00 Venturi Mask 02/20/19 16:00 124 02/20/19 16:00 99.5 134 32 95/62 (73) 95 02/20/19 15:30 128 31 93/63 (73) 95 02/20/19 15:00 126 31 95/58 (70) 95 02/20/19 15:00 95/58 02/20/19 14:30 126 30 91/57 (68) 95 02/20/19 14:15 88/66 02/20/19 14:00 125 30 90/69 (76) 95 02/20/19 14:00 90/59 02/20/19 13:43 90/57 02/20/19 13:30 124 29 90/57 (68) 94 02/20/19 13:00 123 29 65/45 (52) 94 02/20/19 12:30 121 28 95/77 (83) 95 02/20/19 12:00 121 02/20/19 12:00 99.5 127 29 92/61 (71) 94 02/20/19 12:00 92/61 02/20/19 12:00 Venturi Mask 02/20/19 12:00 31 02/20/19 11:45 81/58 02/20/19 11:30 128 29 86/56 (66) 94 02/20/19 11:30 86/56 Intake and Output 02/20/19 02/21/19 19:00 07:00 Intake Total 2761.125 ml 2035.0 ml Output Total 235 ml 200 ml Balance 2526.125 ml 1835.0 ml Intake Free Water 70 ml IV Total 2611.125 ml 2035.0 ml Other 80 ml Output Urine Total 235 ml 200 ml # Bowel Movements 2 Laboratory Tests 02/20/19 11:54: Lactic Acid Level 6.40H 02/20/19 12:15: Random Vancomycin Level 14.9 02/20/19 14:10: Lactic Acid Level 5.20H, Urine Random Sodium < 20L 02/20/19 17:59: Lactic Acid Level 5.10H 02/20/19 21:15: Lactic Acid Level 5.00H 02/21/19 04:20: White Blood Count 12.8H, Red Blood Count 2.28L, Hemoglobin 7.6L, Hematocrit 25.0L, Mean Corpuscular Volume 109H, Mean Corpuscular Hemoglobin 33.4H, Mean Corpuscular Hemoglobin Concent 30.6L, Red Cell Distribution Width 17.2H, Platelet Count 93L, Mean Platelet Volume 6.7, Neutrophils (%) (Auto) , Lymphocytes (%) (Auto) , Monocytes (%) (Auto) , Eosinophils (%) (Auto) , Basophils (%) (Auto) , Differential Total Cells Counted 100, Neutrophils % ( Manual) 85H, Lymphocytes % (Manual) 8L, Monocytes % (Manual) 7, Eosinophils % ( Manual) 0, Basophils % (Manual) 0, Band Neutrophils 0, Platelet Estimate DecreasedL, Platelet Morphology Normal, Hypochromasia 3+, Anisocytosis 1+, Macrocytosis 1+, Sodium Level 131L, Potassium Level 4.5, Chloride Level 99, Carbon Dioxide Level 23, Anion Gap 9, Blood Urea Nitrogen 57H, Creatinine 2.2H, Estimat Glomerular Filtration Rate , Glucose Level 194H, Uric Acid 8.6H, Calcium Level 6.5L, Phosphorus Level 4.2, Magnesium Level 2.2, Iron Level 21L, Total Iron Binding Capacity 150L, Percent Iron Saturation 14L, Unsaturated Iron Binding 129, Ferritin 158, Total Bilirubin 2.3H, Direct Bilirubin 1.5H, Gamma Glutamyl Transpeptidase 37, Aspartate Amino Transf (AST/SGOT) 64H, Alanine Aminotransferase (ALT/SGPT) 35, Alkaline Phosphatase 88, Ammonia 119H, Total Creatine Kinase 216, Troponin I 0.206H, C-Reactive Protein, Quantitative 7.3H, Pro-B-Type Natriuretic Peptide [id number], Total Protein 6.0L, Albumin 2.5L, Globulin 3.5, Albumin/Globulin Ratio 0.7L, Triglycerides Level 27L, Cholesterol Level < 50, LDL Cholesterol 29, HDL Cholesterol 9L, Cholesterol/HDL Ratio 5.6H, Vitamin B12 Level 1915H, Folate 38.7, Thyroid Stimulating Hormone (TSH) 3.456 02/21/19 06:00: Urine Eosinophils [Pending] 02/21/19 07:25: Lactic Acid Level 3.50H 02/21/19 09:10: Arterial Blood pH 7.284L, Arterial Blood Partial Pressure CO2 43.4, Arterial Blood Partial Pressure O2 72.9L, Arterial Blood HCO3 20.1L, Arterial Blood Oxygen Saturation 92.0L, Arterial Blood Base Excess -6.1L, Melchor Test Positive 02/21/19 10:05: Lactic Acid Level 3.40H Height (Feet): 5 Height (Inches): 6.00 Weight (Pounds): 138 Jt Louis MD Feb 21, 2019 11:16
--- NOTE | 2019-02-21 11:26 | NUR ---
NURSE NOTES: Dr Louis here to see pt. ordered labs for am. Dr Howell here to see pt, diflucan ordered. Will continue to monitor.
--- NOTE | 2019-02-21 13:10 | NUR ---
NURSE NOTES: Pt had another large loose BM. Pt turned and repositioned. Will continue to monitor.
--- NOTE | 2019-02-21 13:18 | Diagnostic Imaging Report ---
Indication: cna pct venous access Findings: After the indications, procedure, risks, complications, and alternatives of the procedure were explained, written informed consent was obtained. The left upper extremity was prepped with alcohol. All elements of maximal sterile barrier technique were followed including usage of a cap, mask, sterile gown, sterile gloves, hand hygiene and a large sterile sheet. Sonographic evaluation of the upper extremity was performed demonstrating a patent and compressible basilic vein. Access was obtained under real-time ultrasound guidance (with utilization of sterile gel and sterile probe cover) and digital image was saved and archived. An .018 wire was introduced. Needle exchanged for a 5 Syriac peel-away sheath. Measurements were obtained. A 5 Syriac dual-lumen Power PICC line catheter was cut to 40 cm and introduced over the wire. Peel-away sheath and wire were removed.Catheter was secured to the skin using 2-0 Prolene suture. Both ports aspirate and flush easily. Post procedure chest x-ray demonstrates good position of the PICC line catheter within the right atrium. Impression: Successful placement of an upper extremity PICC line catheter
--- NOTE | 2019-02-21 14:30 | Pulmonolgy Critical Care Note ---
Critical Care - Asmt/Plan Assessment/Plan: Pulmonary CCM Progress Note Assessment/Plan ASSESSMENT: acute on chronic encephalopathy, Urinary tract infection, dementia, chronic atrial fibrillation, hypertension, diastolic congestive heart failure, septic shock, hypothermia, hypotension, hypoxemia severe PCM, thrombocytopenia, anemia, leukocytosis, acute renal failure tachycardia PLAN care noted venous US pending may need VQ scan IV antibioticsper ID Renal following for Azotemia/acidosis respiratory care SNF meds supportive care suction as needed monitor for aspiration oxygen therapy prognosis guarded medications/laboratory data/nursing notes/ICU care reviewed in detail note reviewed and edited care discussed with RN and RT ICU time spent 40 minutes Critical Care - Subjective Interval Events: asked to follow ICU care reviewed patient obtunded and hypothermic ROS Limited/Unobtainable: Yes Condition: critical Critical Care - Objective CXR: cardiomegaly, PICCline Vital Signs Noted Labs Noted Test 02/19/19 11:00 02/19/19 12:00 02/19/19 14:30 02/19/19 17:40 White Blood Count 11.0 K/UL (4.8-10.8) Red Blood Count 2.70 M/UL (4.20-5.40) Hemoglobin 9.0 G/DL (12.0-16.0) Hematocrit 29.9 % (37.0-47.0) Mean Corpuscular Volume 111 FL (80-99) Mean Corpuscular Hemoglobin 33.5 PG (27.0-31.0) Mean Corpuscular Hemoglobin Concent 30.2 G/DL (32.0-36.0) Red Cell Distribution Width 18.0 % (11.6-14.8) Platelet Count 80 K/UL (150-450) Mean Platelet Volume 8.1 FL (6.5-10.1) Neutrophils (%) (Auto) % (45.0-75.0) Lymphocytes (%) (Auto) % (20.0-45.0) Monocytes (%) (Auto) % (1.0-10.0) Eosinophils (%) (Auto) % (0.0-3.0) Basophils (%) (Auto) % (0.0-2.0) Differential Total Cells Counted 100 Neutrophils % (Manual) 81 % (45-75) Lymphocytes % (Manual) 15 % (20-45) Monocytes % (Manual) 4 % (1-10) Eosinophils % (Manual) 0 % (0-3) Basophils % (Manual) 0 % (0-2) Band Neutrophils 0 % (0-8) Platelet Estimate Decreased Platelet Morphology Normal Polychromasia 1+ Hypochromasia 1+ Anisocytosis 1+ Macrocytosis 2+ Prothrombin Time 27.0 SEC (9.30-11.50) Prothromb Time International Ratio 2.7 (0.9-1.1) Activated Partial Thromboplast Time 50 SEC (23-33) Sodium Level 138 MMOL/L (136-145) Potassium Level 5.5 MMOL/L (3.5-5.1) Chloride Level 101 MMOL/L (98-107) Carbon Dioxide Level 20 MMOL/L (21-32) Anion Gap 17 mmol/L (5-15) Blood Urea Nitrogen 53 mg/dL (7-18) Creatinine 2.1 MG/DL (0.55-1.30) Estimat Glomerular Filtration Rate mL/min (>60) Glucose Level 75 MG/DL (74-106) Lactic Acid Level 11.80 mmol/L (0.4-2.0) 10.60 mmol/L (0.66-2.22) Calcium Level 8.3 MG/DL (8.5-10.1) Total Bilirubin 3.0 MG/DL (0.2-1.0) Direct Bilirubin 1.9 MG/DL (0.0-0.3) Aspartate Amino Transf (AST/SGOT) 62 U/L (15-37) Alanine Aminotransferase (ALT/SGPT) 25 U/L (12-78) Alkaline Phosphatase 131 U/L (46-116) Troponin I 0.080 ng/mL (0.000-0.056) Total Protein 6.5 G/DL (6.4-8.2) Albumin 2.4 G/DL (3.4-5.0) Globulin 4.1 g/dL Albumin/Globulin Ratio 0.6 (1.0-2.7) Lipase 170 U/L (73-393) Urine Color Yellow Urine Appearance Cloudy Urine pH 5 (4.5-8.0) Urine Specific [place] 1.020 (1.005-1.035) Urine Protein 3+ (NEGATIVE) Urine Glucose (UA) Negative (NEGATIVE) Urine Ketones 2+ (NEGATIVE) Urine Blood 3+ (NEGATIVE) Urine Nitrite Negative (NEGATIVE) Urine Bilirubin Negative (NEGATIVE) Urine Urobilinogen 4 MG/DL (0.0-1.0) Urine Leukocyte Esterase 3+ (NEGATIVE) Urine RBC 5-10 /HPF (0 - 2) Urine WBC 30-40 /HPF (0 - 2) Urine Squamous Epithelial Cells Few /LPF (NONE/OCC) Urine Bacteria Few /HPF (NONE) Urine Yeast Few /HPF (NONE) Urine Random Sodium 28 mmol/L (20-110) Urine Creatinine 117.8 MG/DL (30.0-125.0) Arterial Blood pH 7.317 (7.350-7.450) Arterial Blood Partial Pressure CO2 28.6 mmHg (35.0-45.0) Arterial Blood Partial Pressure O2 102.6 mmHg (75.0-100.0) Arterial Blood HCO3 14.3 mmol/L (22.0-26.0) Arterial Blood Oxygen Saturation 96.7 % (95-100) Arterial Blood Base Excess -10.7 (-2-2) Melchor Test Positive Test 02/19/19 20:54 02/19/19 23:00 02/20/19 03:25 Lactic Acid Level 9.80 mmol/L (0.4-2.0) 8.60 mmol/L (0.66-2.22) 7.60 mmol/L (0.4-2.0) White Blood Count 13.2 K/UL (4.8-10.8) Red Blood Count 2.60 M/UL (4.20-5.40) Hemoglobin 8.7 G/DL (12.0-16.0) Hematocrit 29.0 % (37.0-47.0) Mean Corpuscular Volume 112 FL (80-99) Mean Corpuscular Hemoglobin 33.3 PG (27.0-31.0) Mean Corpuscular Hemoglobin Concent 29.9 G/DL (32.0-36.0) Red Cell Distribution Width 17.7 % (11.6-14.8) Platelet Count 98 K/UL (150-450) Mean Platelet Volume 8.9 FL (6.5-10.1) Neutrophils (%) (Auto) % (45.0-75.0) Lymphocytes (%) (Auto) % (20.0-45.0) Monocytes (%) (Auto) % (1.0-10.0) Eosinophils (%) (Auto) % (0.0-3.0) Basophils (%) (Auto) % (0.0-2.0) Sodium Level 136 MMOL/L (136-145) Potassium Level 5.4 MMOL/L (3.5-5.1) Chloride Level 101 MMOL/L (98-107) Carbon Dioxide Level 20 MMOL/L (21-32) Anion Gap 16 mmol/L (5-15) Blood Urea Nitrogen 54 mg/dL (7-18) Creatinine 2.1 MG/DL (0.55-1.30) Estimat Glomerular Filtration Rate mL/min (>60) Glucose Level 125 MG/DL (74-106) Calcium Level 7.5 MG/DL (8.5-10.1) Total Bilirubin 3.0 MG/DL (0.2-1.0) Direct Bilirubin 1.5 MG/DL (0.0-0.3) Aspartate Amino Transf (AST/SGOT) 68 U/L (15-37) Alanine Aminotransferase (ALT/SGPT) 28 U/L (12-78) Alkaline Phosphatase 119 U/L (46-116) Total Protein 6.3 G/DL (6.4-8.2) Albumin 2.2 G/DL (3.4-5.0) Globulin 4.1 g/dL Albumin/Globulin Ratio 0.5 (1.0-2.7) Objective: PHYSICAL EXAMINATION: GENERAL: The patient is a chronically ill-appearing female, in no apparent distress. altered and obtunded. NECK: Supple. HEART: Regular rate and rhythm.without MRG LUNGS: reduced with scattered rhonchi; no wheeze ABDOMEN: Soft, nontender, nondistended. no HSM EXTREMITIES: No clubbing, cyanosis, or edema. PICC line NEURO: response to pain skin noted Critical Care - Objective Last 24 Hour Vital Signs Date Time Temp Pulse Resp B/P (MAP) Pulse Ox O2 Delivery O2 Flow Rate FiO2 02/21/19 14:00 125 21 97/70 (79) 91 02/21/19 13:30 126 20 93/72 (79) 02/21/19 13:00 127 20 96/62 (73) 02/21/19 12:30 97.7 133 21 99/66 (77) 89 02/21/19 12:00 Venturi Mask 02/21/19 12:00 117 02/21/19 12:00 131 22 99/82 (88) 98 02/21/19 11:30 129 17 113/71 (85) 02/21/19 11:00 128 24 122/75 (91) 98 02/21/19 10:36 99/75 02/21/19 10:30 133 19 111/77 (88) 100 02/21/19 10:00 134 22 99/75 (83) 02/21/19 09:30 128 21 112/86 (95) 96 02/21/19 09:00 135 25 96/69 (78) 02/21/19 08:30 133 19 109/81 (90) 02/21/19 08:00 97.5 139 24 100/80 (87) 02/21/19 08:00 Venturi Mask 02/21/19 08:00 130 02/21/19 07:30 133 24 31/15 (20) 99 02/21/19 07:29 99 Venturi Mask 4.0 31 02/21/19 07:00 94/66 02/21/19 07:00 131 20 94/66 (75) 99 02/21/19 06:30 129 23 94/66 (75) 98 02/21/19 06:00 133 23 89/69 (76) 98 02/21/19 06:00 118/73 02/21/19 05:30 135 25 118/94 (102) 95 02/21/19 05:00 132 28 96/71 (79) 98 02/21/19 05:00 101/76 02/21/19 04:30 129 26 103/78 (86) 97 02/21/19 04:00 Venturi Mask 02/21/19 04:00 129 23 107/79 (88) 98 02/21/19 04:00 90/65 02/21/19 04:00 128 02/21/19 03:30 130 23 98/77 (84) 96 02/21/19 03:15 122 24 103/78 (86) 95 02/21/19 03:15 109/67 02/21/19 03:00 103/78 02/21/19 03:00 131 25 109/67 (81) 97 02/21/19 02:30 126 20 94/69 (77) 02/21/19 02:15 126 19 109/84 (92) 02/21/19 02:00 109/84 02/21/19 02:00 130 21 108/76 (87) 02/21/19 01:45 129 26 98/68 (78) 02/21/19 01:30 128 24 107/79 (88) 02/21/19 01:00 102/65 02/21/19 01:00 126 22 93/66 (75) 02/21/19 00:30 124 25 115/69 (84) 02/21/19 00:00 123 24 88/67 (74) 94 02/21/19 00:00 77/58 02/21/19 00:00 Venturi Mask 02/20/19 23:30 129 25 100/67 (78) 96 02/20/19 23:00 129 29 124/77 (93) 95 02/20/19 23:00 84/69 02/20/19 22:30 123 24 81/67 (72) 94 02/20/19 22:15 127 28 91/63 (72) 95 02/20/19 22:00 91/63 02/20/19 22:00 128 31 107/66 (80) 94 02/20/19 21:30 123 28 102/70 (81) 95 02/20/19 21:23 83/63 02/20/19 21:00 125 29 93/64 (74) 96 02/20/19 20:30 119 31 71/55 (60) 94 02/20/19 20:25 96/75 02/20/19 20:15 130 107/78 02/20/19 20:00 121 02/20/19 20:00 98.8 120 30 93/49 (64) 94 02/20/19 20:00 Venturi Mask 02/20/19 19:45 123 31 123/78 (93) 96 02/20/19 19:30 125 33 110/68 (82) 95 02/20/19 19:18 95 Venturi Mask 4.0 31 02/20/19 19:00 95/73 02/20/19 19:00 131 31 95/73 (80) 95 02/20/19 18:30 132 31 94/64 (74) 95 02/20/19 18:00 130 32 106/79 (88) 95 02/20/19 18:00 106/79 02/20/19 17:30 84/59 02/20/19 17:30 129 31 94/64 (74) 94 02/20/19 17:00 130 32 92/68 (76) 94 02/20/19 17:00 92/68 02/20/19 16:30 130 31 88/71 (77) 94 02/20/19 16:00 31 02/20/19 16:00 95/62 02/20/19 16:00 Venturi Mask 02/20/19 16:00 124 02/20/19 16:00 99.5 134 32 95/62 (73) 95 02/20/19 15:30 128 31 93/63 (73) 95 02/20/19 15:00 126 31 95/58 (70) 95 02/20/19 15:00 95/58 02/20/19 14:30 126 30 91/57 (68) 95 Micro: Microbiology Date/Time Source Procedure Growth Status 02/19/19 11:15 Blood Blood Culture - Preliminary NO GROWTH AFTER 24 HOURS Resulted 02/19/19 11:00 Blood Blood Culture - Preliminary NO GROWTH AFTER 24 HOURS Resulted 02/19/19 14:30 Nasal Nares MRSA Culture - Final NO METHICILLIN RESISTANT STAPH AUREUS... Complete 02/19/19 12:00 Urine,Clean Catch Urine Culture - Preliminary YEAST Resulted 02/19/19 14:30 Rectal Mucosa VRE Culture - Final Enterococcus Faecium - Vre Complete Accucheck: 72 Critical Care - Subjective ROS Limited/Unobtainable: No FI02: 31 Sputum Amount: None I&O: Intake and Output 02/20/19 02/21/19 19:00 07:00 Intake Total 2761.125 ml 2035.0 ml Output Total 235 ml 200 ml Balance 2526.125 ml 1835.0 ml Intake Free Water 70 ml IV Total 2611.125 ml 2035.0 ml Other 80 ml Output Urine Total 235 ml 200 ml # Bowel Movements 2 Jimmie Puckett MD Feb 21, 2019 14:30
--- NOTE | 2019-02-21 15:56 | NUR ---
NURSE NOTES: Pt suctioned orally. VSS. Will continue to monitor.
[2019-02-21] MEDS ORDERED: NS Irrig 1000ml ONE (16:03)
[2019-02-21] MEDS ORDERED: Tubing IV Secondary IV ONE (16:03)
--- NOTE | 2019-02-21 17:16 | NUR ---
NURSE NOTES: Dr Puckett here to see pt. ordered to place pt on bipap now and recheck ABG after [address] Mason ordered to transfuse 1 unit of blood. Type and Cross drawn and sent to lab. Will continue to monitor.
--- NOTE | 2019-02-21 19:00 | NUR ---
RESPIRATORY NOTE: PT RECEIVED ON BIPAP 03/14 RATE OF16. 50% FIO2 ALARMS ARE ON AND AUDIBLE. NO S/S OF RESPIRATORY DISTRESS NOTED AT THIS TIME. HOWEVER, I WAS UNABLE TO GET SPO2 ON THIS PT DUE TO COLD EXTREMITIES. RN IS AWARE. ABG DONE @ 1955 AND sO2 ON ABG WAS 98.1 WITH A PO2 OF 121.9. WILL CONTINUE TO CLOSELY MONITOR.
--- NOTE | 2019-02-21 19:20 | NUR ---
HAND-OFF: Report given to Pat HDZ.
--- NOTE | 2019-02-21 19:23 | NUR ---
NURSE NOTES: received pt nonverbal,respond to pain stimuli only, pt on Bipap 03/14 rate 16 with Fio2 50 Percent 02 sat >95%. I unitPRBC was just started by RN Ludivina. Watch for any transfusion reaction.NPO at this time gT clamped . pt for new GT placement in am.Gross to gravity with minimal amt. of pauly yellow urine. Dr monson was aware. 2-3+ edema noted to extremities. RT IJ central line with Levophed drip at 8mcg/min. infusing and NS at 50ml/hr. Site with drsg with blood stain but intact. Will continue to monitor.
--- NOTE | 2019-02-21 20:00 | NUR ---
NURSE NOTES: called Dr Reis if can dcd central line RT IJ with platelet ct of 93.- awaiting for md to call back.
--- NOTE | 2019-02-21 20:24 | NUR ---
NURSE NOTES: Received pt in no acute distress but with unstable vital signs. Pt obtunded; on the Bipap @12/4 rate of 16 fiO2 .50 but unable to obtain SPO2 due to cold extremities. Currently receiving one unit of PRBC via PICC line on KELVIN. No untoward reaction noted so far. Pt doesn't move any extremities. Doesn't follow commands, passive. Afib on the monitor. Left IJ central line intact but unable to DC it at the moment due to low platelets. Noted some blood on the dressing. No active bleeding so far. Levophed gtt running at 14mcg/min. GT exit site with small amt of discharge. Currently NPO. Pt for planned procedure of PEG replacement in AM. FC intact but oliguric. Hypothermic with temp 95 axillary. Stan hugger placed. Will monitor VS [id number] and titrate Levophed gtt to keep SBP>90.
--- NOTE | 2019-02-21 20:24 | NUR ---
HAND-OFF: Report given to Nash HDZ.
--- NOTE | 2019-02-21 20:30 | NUR ---
NURSE NOTES: Noted a DTI on left heel area. Previously not documented. Wound protocol initiated.
--- NOTE | 2019-02-21 20:45 | Consultation ---
DATE OF CONSULTATION: 02/19/2019 CARDIOLOGY CONSULTATION CONSULTING PHYSICIAN: Jimmie Mason M.D. REQUESTING PHYSICIAN: Mitchel Reis M.D. REASON FOR CONSULTATION: Shock. HISTORY OF PRESENT ILLNESS: The patient was seen in the emergency room. Plans for intensive care unit admission are in progress. She is a 78-year-old female. She presented to the emergency room by paramedics from a shelter facility because of low blood pressure, altered mentation, and respiratory distress. In the emergency room, central access was obtained. She was pancultured. Intravenous fluid boluses were initiated. Blood pressure parameters remained poor. Intensive care unit admission is planned. PAST MEDICAL HISTORY: Notable for chronic atrial fibrillation, diastolic congestive heart failure, cerebrovascular disease with dementia and psychosis, hyperlipidemia, and dysphagia with history of G-tube. MEDICATIONS: Reviewed and reconciled. ALLERGIES: None. FAMILY HISTORY: Not known. SOCIAL HISTORY: Negative for smoking, alcohol, or substance abuse. REVIEW OF SYSTEMS: Not obtainable from the patient. Pertinent data from review of records is outlined above. PHYSICAL EXAMINATION: VITAL SIGNS: Blood pressure 108/70, pulse 68, respirations 20, and afebrile. Subsequently, blood pressure 93/70, 102 irreg and respirations 24. HEENT: Temporal wasting. Noted to have a dry mucous membranes. NECK: Supple. LUNGS: Diminished breath sounds. CARDIOVASCULAR: Central line site in the chest wall without bleeding. LUNGS: With bilateral breath sounds. HEART: Irregularly irregular rhythm. Normal S1, S2. ABDOMEN: Soft. EXTREMITIES: 2+ dependent edema. DIAGNOSTIC DATA: EKG with atrial fibrillation and nonspecific ST-T wave changes. Chest x-ray with no acute process. ABG, 7.31, 28, 102. Urinalysis with 30 to 40 white cells and 5 to 10 red cells. Troponin 0.080 albumin 2.4. Lactic acid 11.8. BUN 53 and creatinine 2.1. Potassium 5.5. White count 11 and hemoglobin 9. IMPRESSION: 1. Shock. 2. Sepsis. 3. Hypovolemia. 4. Lactic acidosis. 5. Acute myocardial ischemia. 6. Thrombocytopenia. 7. Small pericardial effusion. PLAN: 1. Panculture. 2. Antimicrobials. 3. Central venous access. 4. Volume resuscitation. 5. Pressor support. 6. Empiric antimicrobials. 7. Serial lactic acid levels. 8. Monitor acid-base parameters. 9. DVT and stress ulcer prophylaxis. 10. Condition critical. 11. Prognosis guarded. Jimmie Mason M.D. DR: RAMANA JOB#: [id number] CC: CHRISTINE
[2019-02-21] MEDS: Dyna-Hex 2% Top Sol 2oz TOPIC SCH (20:59)
[2019-02-21] MEDS: Phenylephrine 100 MG in NS 240 ML IV SCH (21:45)
--- NOTE | 2019-02-21 21:45 | NUR ---
NURSE NOTES: BP 69/15 on right arm. Still unable to obtain spo2 due to cold extremities. Levophed gtt now up to 30mcg/min and Neosynephrine gtt started at 200 mcg/min. Still with palpable pulses on femoral area but pt remains obtunded. PRBC almost complete without any reactions noted so far. Will continue to monitor VS [id number].
--- NOTE | 2019-02-21 22:02 | Progress Note ---
DATE: 02/21/2019 CARDIOLOGY PROGRESS NOTE SUBJECTIVE: The patient's condition remains critical. Prognosis guarded. The echocardiogram was reviewed. Left ventricular function is normal. There is abnormal septal wall motion due to right-sided volume status there is right ventricular hypokinesis. There is significant fluid overload pattern on the right side. There is severe pulmonary hypertension with PA systolic of over 70 mmHg with moderate tricuspid regurgitation. The patient remains on pressor support. Atrial fibrillation. Remains on monitoring specialist. OBJECTIVE: LUNGS: Bilateral breath sounds. HEART: Irregularly irregular rhythm. Normal S1, S2. ABDOMEN: Soft. G-tube intact. EXTREMITIES: 2+ dependent edema. Hepatomegaly and ascites are noted. IMPRESSION: 1. Sepsis. 2. Shock. 3. Right heart failure. 4. Pulmonary hypertension. 5. Possible pulmonary emboli. 6. Type 2 diabetes mellitus. 7. Ascites and possible cirrhosis. 8. Acute on chronic renal failure. 9. Chronic obstructive pulmonary disease. 10. G-tube ____ for malnutrition. PLAN: 1. Taper pressors as able. 2. Maintain adequate volume support. 3. Antimicrobials. 4. Consider ventilation/perfusion scan or CT angiogram of the chest. 5. No benefit from inotropes in this setting. 6. The patient is volume dependent. 7. Prognosis is poor with condition critical. Jimmie Mason M.D. DR: RAMANA JOB#: [id number] CC: CHRISTINE
--- NOTE | 2019-02-21 22:06 | General Progress Note ---
Assessment/Plan Status: unchanged Assessment/Plan: Assessment - TF leak - minor, GT relatively new and in good position - Abnormal LFT, ascites - ? chronic liver disease - Lactic acidosis - Resp failure - OBS / Delirium - Azotemia - Diarrhea Recommendations - Check C Diff - lactulose trial - supportive care - Abx per ID - check abd ultrasound (may benefit from Contrast CT at later date, if Cr allows ) Thank you César Saldana MD Subjective Allergies: Coded Allergies: No Known Allergies (Unverified , 02/19/19) Objective Last 24 Hour Vital Signs Date Time Temp Pulse Resp B/P (MAP) Pulse Ox O2 Delivery O2 Flow Rate FiO2 02/21/19 21:45 138 70/34 02/21/19 21:00 88/60 02/21/19 19:30 98.0 109 16 80/55 (63) 98 02/21/19 19:00 110 16 106/59 (75) 98 02/21/19 18:30 115 15 86/65 (72) 100 02/21/19 18:00 115 15 78/62 (67) 93 02/21/19 17:30 125 17 96/80 (85) 97 02/21/19 17:00 121 16 111/65 (80) 96 02/21/19 16:32 118 19 93 Facial 50 02/21/19 16:30 126 19 90/53 (65) 96 02/21/19 16:00 Venturi Mask 02/21/19 16:00 124 02/21/19 16:00 97.5 131 19 98/79 (85) 93 02/21/19 15:30 122 20 101/68 (79) 95 02/21/19 15:00 126 21 117/68 (84) 97 02/21/19 14:30 125 21 97/70 (79) 97 02/21/19 14:00 125 21 97/70 (79) 91 02/21/19 13:30 126 20 93/72 (79) 97 02/21/19 13:00 127 20 96/62 (73) 02/21/19 12:30 97.7 133 21 99/66 (77) 89 02/21/19 12:00 Venturi Mask 02/21/19 12:00 117 02/21/19 12:00 131 22 99/82 (88) 98 02/21/19 11:30 129 17 113/71 (85) 02/21/19 11:00 128 24 122/75 (91) 98 02/21/19 10:36 99/75 02/21/19 10:30 133 19 111/77 (88) 100 02/21/19 10:00 134 22 99/75 (83) 96 02/21/19 09:30 128 21 112/86 (95) 96 02/21/19 09:00 135 25 96/69 (78) 02/21/19 08:30 133 19 109/81 (90) 94 02/21/19 08:00 97.5 139 24 100/80 (87) 97 02/21/19 08:00 Venturi Mask 02/21/19 08:00 130 02/21/19 07:30 133 24 31/15 (20) 99 02/21/19 07:29 99 Venturi Mask 4.0 31 02/21/19 07:00 94/66 02/21/19 07:00 131 20 94/66 (75) 99 02/21/19 06:30 129 23 94/66 (75) 98 02/21/19 06:00 133 23 89/69 (76) 98 02/21/19 06:00 118/73 02/21/19 05:30 135 25 118/94 (102) 95 02/21/19 05:00 132 28 96/71 (79) 98 02/21/19 05:00 101/76 02/21/19 04:30 129 26 103/78 (86) 97 02/21/19 04:00 Venturi Mask 02/21/19 04:00 129 23 107/79 (88) 98 02/21/19 04:00 90/65 02/21/19 04:00 128 02/21/19 03:30 130 23 98/77 (84) 96 02/21/19 03:15 122 24 103/78 (86) 95 02/21/19 03:15 109/67 02/21/19 03:00 103/78 02/21/19 03:00 131 25 109/67 (81) 97 02/21/19 02:30 126 20 94/69 (77) 02/21/19 02:15 126 19 109/84 (92) 02/21/19 02:00 109/84 02/21/19 02:00 130 21 108/76 (87) 02/21/19 01:45 129 26 98/68 (78) 02/21/19 01:30 128 24 107/79 (88) 02/21/19 01:00 102/65 02/21/19 01:00 126 22 93/66 (75) 02/21/19 00:30 124 25 115/69 (84) 02/21/19 00:00 123 24 88/67 (74) 94 02/21/19 00:00 77/58 02/21/19 00:00 Venturi Mask 02/20/19 23:30 129 25 100/67 (78) 96 02/20/19 23:00 129 29 124/77 (93) 95 02/20/19 23:00 84/69 02/20/19 22:30 123 24 81/67 (72) 94 02/20/19 22:15 127 28 91/63 (72) 95 Intake and Output 02/20/19 02/21/19 19:00 07:00 Intake Total 2761.125 ml 2035.0 ml Output Total 235 ml 200 ml Balance 2526.125 ml 1835.0 ml Intake Free Water 70 ml IV Total 2611.125 ml 2035.0 ml Other 80 ml Output Urine Total 235 ml 200 ml # Bowel Movements 2 Laboratory Tests 02/21/19 04:20: White Blood Count 12.8H, Red Blood Count 2.28L, Hemoglobin 7.6L, Hematocrit 25.0L, Mean Corpuscular Volume 109H, Mean Corpuscular Hemoglobin 33.4H, Mean Corpuscular Hemoglobin Concent 30.6L, Red Cell Distribution Width 17.2H, Platelet Count 93L, Mean Platelet Volume 6.7, Neutrophils (%) (Auto) , Lymphocytes (%) (Auto) , Monocytes (%) (Auto) , Eosinophils (%) (Auto) , Basophils (%) (Auto) , Differential Total Cells Counted 100, Neutrophils % ( Manual) 85H, Lymphocytes % (Manual) 8L, Monocytes % (Manual) 7, Eosinophils % ( Manual) 0, Basophils % (Manual) 0, Band Neutrophils 0, Platelet Estimate DecreasedL, Platelet Morphology Normal, Hypochromasia 3+, Anisocytosis 1+, Macrocytosis 1+, Sodium Level 131L, Potassium Level 4.5, Chloride Level 99, Carbon Dioxide Level 23, Anion Gap 9, Blood Urea Nitrogen 57H, Creatinine 2.2H, Estimat Glomerular Filtration Rate , Glucose Level 194H, Uric Acid 8.6H, Calcium Level 6.5L, Phosphorus Level 4.2, Magnesium Level 2.2, Iron Level 21L, Total Iron Binding Capacity 150L, Percent Iron Saturation 14L, Unsaturated Iron Binding 129, Ferritin 158, Total Bilirubin 2.3H, Direct Bilirubin 1.5H, Gamma Glutamyl Transpeptidase 37, Aspartate Amino Transf (AST/SGOT) 64H, Alanine Aminotransferase (ALT/SGPT) 35, Alkaline Phosphatase 88, Ammonia 119H, Total Creatine Kinase 216, Troponin I 0.206H, C-Reactive Protein, Quantitative 7.3H, Pro-B-Type Natriuretic Peptide 59250A, Total Protein 6.0L, Albumin 2.5L, Globulin 3.5, Albumin/Globulin Ratio 0.7L, Triglycerides Level 27L, Cholesterol Level < 50, LDL Cholesterol 29, HDL Cholesterol 9L, Cholesterol/HDL Ratio 5.6H, Vitamin B12 Level 1915H, Folate 38.7, Thyroid Stimulating Hormone (TSH) 3.456 02/21/19 06:00: Urine Eosinophils Occasional 02/21/19 07:25: Lactic Acid Level 3.50H 02/21/19 09:10: Arterial Blood pH 7.284L, Arterial Blood Partial Pressure CO2 43.4, Arterial Blood Partial Pressure O2 72.9L, Arterial Blood HCO3 20.1L, Arterial Blood Oxygen Saturation 92.0L, Arterial Blood Base Excess -6.1L, Melchor Test Positive 02/21/19 10:05: Lactic Acid Level 3.40H 02/21/19 15:55: Lactic Acid Level 2.70H 02/21/19 19:56: Arterial Blood pH 7.335L, Arterial Blood Partial Pressure CO2 40.8, Arterial Blood Partial Pressure O2 121.9H, Arterial Blood HCO3 21.3L, Arterial Blood Oxygen Saturation 98.1, Arterial Blood Base Excess -4.2L, Melchor Test Positive 02/21/19 21:40: Lactic Acid Level [Pending] Height (Feet): 5 Height (Inches): 6.00 Weight (Pounds): 138 César Saldana MD Feb 21, 2019 22:06
[2019-02-22] VITALS (69 sets, daily range): BP systolic 51–117; BP diastolic 26–91
--- NOTE | 2019-02-22 | NUR ---
NURSE NOTES: BP remains labile. Levophed gtt at 30mcg/min and Neosynephrine gtt at 200mcg/min. Attempted to titrate down but pressure drops. Will keep at max dose. Remains obtunded, grimacing to pain; femoral pulses palpable but faint and thready. Afebrile. Extremities still cold; still unable to obtain saturation readings. Had 1 mod amt of black stools. Will continues to monitor
[2019-02-22] MEDS: Norepinephrine Bitartrate 8 MG in D5W 500ml 492 ML IV SCH ×3 (01:36→10:58)
[2019-02-22] MEDS: Lactulose 20gm/30ml UDC ORAL SCH ×3 (01:39→17:59)
--- NOTE | 2019-02-22 02:00 | NUR ---
NURSE NOTES: BP readings better; 91/77 but on high doses of pressors. Will continue to monitor [id number].
--- NOTE | 2019-02-22 04:00 | NUR ---
NURSE NOTES: Complete bed bath done. perianal area excoriated. Cleansed and applied Triad cream. PICC line dressing changed. Kept Right IJ TLC until platelet count improves. Afebrile, remains on Afib. BP labile, 89/63. Will keep pressors at max dose.Urine output low, Urine for Eos # 2 sent. Covered GT exit site
[2019-02-22 04:33] LABS: HEMATOCRIT 30.4 % (37.0-47.0); HEMOGLOBIN 9.5 G/DL (12.0-16.0); MEAN CORPUSCULAR VOLUME 107 FL (80-99); PLATELET COUNT 83 K/UL (150-450); RED BLOOD COUNT 2.86 M/UL (4.20-5.40); RED CELL DISTRIBUTION WIDTH 19.8 % (11.6-14.8)
[2019-02-22 04:51] LABS: ALANINE AMINOTRANSFERASE 39 U/L (12-78); ALBUMIN 2.4 G/DL (3.4-5.0); ALBUMIN/GLOBULIN RATIO 0.6 (1.0-2.7); ALKALINE PHOSPHATASE 97 U/L (46-116); ANION GAP 11 mmol/L (5-15); ASPARTATE AMINO TRANSFERASE 72 U/L (15-37); BILIRUBIN,TOTAL 2.6 MG/DL (0.2-1.0); BLOOD UREA NITROGEN 52 mg/dL (7-18); CALCIUM 6.7 MG/DL (8.5-10.1); CARBON DIOXIDE 22 MMOL/L (21-32); CHLORIDE 102 MMOL/L (98-107); CREATININE 2.2 MG/DL (0.55-1.30); PHOSPHORUS 4.3 MG/DL (2.5-4.9); POTASSIUM 4.3 MMOL/L (3.5-5.1); SODIUM 135 MMOL/L (136-145)
--- NOTE | 2019-02-22 05:00 | NUR ---
RESPIRATORY NOTE: PT REMAINED STABLE ON BIPAP. STILL UNABLE TO GET AN SPO2 READING. NO S/S OF RESPIRATORY DISTRESS NOTED AT THIS TIME. FACE RE- TAPED. NO FACIAL WOUNDS FOUND.
[2019-02-22 05:07] LABS: BILIRUBIN,DIRECT 1.5 MG/DL (0.0-0.3)
[2019-02-22] MEDS: Phenylephrine 100 MG in NS 240 ML IV SCH ×2 (06:10→14:50)
--- NOTE | 2019-02-22 07:08 | NUR ---
HAND-OFF: Report given to Ashley Ardon RN.
--- NOTE | 2019-02-22 07:09 | NUR ---
NURSE NOTES: Dr Reis here to see the patient. Notified Dr Reis that right IJ left intact due to low platelet and O2 sat is unable to read since extremities are cold by night auditor. aware.
--- NOTE | 2019-02-22 07:09 | NUR ---
NURSE NOTES: Report received from ANDREINA Cao. Pt is obtunded. Unable to open eyes but slight facial grimace to pain. A-fib with RVR 130-140's on director of cardiac cath lab. Pt is on Bi-pap 12/, 50%. Unable to read O2 sat since all extremities are cold. Warm pack applied to finger and will recheck O2 sat later. G-tube in place and clamped. Gross in place draining small amount of pauly colored urine. All extremities edematous and upper extremities weeping noted. Right IJ TLC and left UA PICC patent and asymptomatic. Pt is on Levophed at 30mcg/min and Phenylephrine at 300mcg/min. BP 90's. Bed in lowest position. Side rails up x3. Will resume plan of care.
--- NOTE | 2019-02-22 08:37 | General Progress Note ---
Assessment/Plan Problem List: (1) Septic shock ICD Codes: A41.9 - Sepsis, unspecified organism; R65.21 - Severe sepsis with septic shock SNOMED: 07182404 (2) UTI (urinary tract infection) ICD Codes: N39.0 - Urinary tract infection, site not specified SNOMED: 66741474 Qualifiers: Qualified Codes: N39.0 - Urinary tract infection, site not specified (3) Renal failure ICD Codes: N19 - Unspecified kidney failure SNOMED: 95704651 Qualifiers: Qualified Codes: N17.9 - Acute kidney failure, unspecified (4) Abdominal pain ICD Codes: R10.9 - Unspecified abdominal pain SNOMED: 31449254 Qualifiers: Qualified Codes: R10.32 - Left lower quadrant pain (5) Severe sepsis ICD Codes: A41.9 - Sepsis, unspecified organism; R65.20 - Severe sepsis without septic shock SNOMED: 31783826 (6) Dehydration ICD Codes: E86.0 - Dehydration SNOMED: 03895149 (7) Atrial fibrillation with rapid ventricular response ICD Codes: I48.91 - Unspecified atrial fibrillation SNOMED: 541371733385926 Status: not improved, deteriorating Assessment/Plan: cont supportive care pressors ivf iv abx prognosis grim ethics eval - ?DNR code would likely be futile Subjective ROS Limited/Unobtainable: Yes Constitutional: Reports: malaise, weakness HEENT: Reports: no symptoms Cardiovascular: Reports: edema, palpitations Respiratory: Reports: shortness of breath Gastrointestinal/Abdominal: Reports: difficulty swallowing Genitourinary: Reports: no symptoms Neurologic/Psychiatric: Reports: pre-existing deficit Endocrine: Reports: no symptoms Hematologic/Lymphatic: Reports: anemia Allergies: Coded Allergies: No Known Allergies (Unverified , 02/19/19) All Systems: reviewed and negative except above Subjective doing poorly. maxed out on pressors. difficult to obtain spo2. on multiple abx. Objective Last 24 Hour Vital Signs Date Time Temp Pulse Resp B/P (MAP) Pulse Ox O2 Delivery O2 Flow Rate FiO2 02/22/19 08:00 143 22 96/71 (79) 02/22/19 07:30 97.0 143 18 88/61 (70) 02/22/19 07:22 Bi-Pap 40 02/22/19 07:21 139 17 Facial 40 02/22/19 07:00 143 19 86/70 (75) 02/22/19 06:45 139 18 82/68 (73) 02/22/19 06:30 139 18 94/79 (84) 02/22/19 06:16 91/71 02/22/19 06:15 139 19 91/71 (78) 02/22/19 06:10 130 99/69 02/22/19 06:00 140 17 99/69 (79) 02/22/19 06:00 94/79 02/22/19 05:45 138 17 101/61 (74) 02/22/19 05:30 140 18 99/72 (81) 02/22/19 05:15 141 17 101/71 (81) 02/22/19 05:00 141 19 Facial 50 02/22/19 05:00 99/84 02/22/19 05:00 142 17 99/84 (89) 02/22/19 04:45 142 17 87/60 (69) 02/22/19 04:30 143 17 91/46 (61) 02/22/19 04:15 143 20 100/82 (88) 02/22/19 04:00 97.4 146 22 89/63 (72) 02/22/19 04:00 50 02/22/19 04:00 89/63 02/22/19 04:00 Bi-pap 02/22/19 04:00 140 02/22/19 03:45 145 18 93/61 (72) 02/22/19 03:30 147 20 107/73 (84) 02/22/19 03:15 146 15 107/73 (84) 02/22/19 03:04 140 19 Facial 50 02/22/19 03:00 141 18 97/81 (86) 02/22/19 03:00 97/81 02/22/19 02:45 147 17 105/83 (90) 02/22/19 02:30 148 18 111/53 (72) 02/22/19 02:15 147 17 106/61 (76) 02/22/19 02:00 91/77 02/22/19 02:00 144 16 91/77 (82) 02/22/19 01:45 140 18 100/67 (78) 02/22/19 01:36 93/75 02/22/19 01:30 146 16 93/75 (81) 02/22/19 01:15 148 18 02/22/19 01:15 139 21 Facial 50 02/22/19 01:00 99/72 02/22/19 01:00 149 18 99/72 (81) 02/22/19 00:45 146 15 109/77 (88) 02/22/19 00:30 144 17 94/79 (84) 02/22/19 00:15 149 17 108/77 (87) 02/22/19 00:00 Bi-pap 02/22/19 00:00 144 02/22/19 00:00 107/78 02/22/19 00:00 50 02/22/19 00:00 97.5 147 107/78 (88) 02/21/19 23:45 147 17 72/47 (55) 02/21/19 23:30 144 18 78/34 (49) 02/21/19 23:15 148 17 130/81 (97) 02/21/19 23:10 135 17 Facial 50 02/21/19 23:00 149 18 84/49 (61) 02/21/19 23:00 84/49 02/21/19 22:45 147 17 111/90 (97) 02/21/19 22:30 148 16 119/96 (104) 02/21/19 22:19 148 18 158/107 (124) 74 02/21/19 22:15 145 17 38/12 (21) 02/21/19 22:00 69/15 02/21/19 22:00 146 16 42/13 (23) 02/21/19 21:45 139 15 74/55 (61) 02/21/19 21:45 138 70/34 02/21/19 21:30 140 15 70/34 (46) 02/21/19 21:15 130 15 116/87 (97) 02/21/19 21:00 88/60 02/21/19 21:00 129 16 69/15 (33) 02/21/19 20:51 115 18 Facial 50 02/21/19 20:45 110 12 56/21 (33) 02/21/19 20:30 112 14 82/55 (64) 02/21/19 20:15 111 16 76/57 (63) 11/13/19 20:00 Bi-pap 02/21/19 20:00 143 02/21/19 20:00 86/60 02/21/19 20:00 114 15 86/60 (69) 02/21/19 20:00 50 02/21/19 19:56 Bi-Pap 50 02/21/19 19:45 112 16 114/55 (74) 02/21/19 19:30 98.0 109 16 80/55 (63) 98 02/21/19 19:00 110 16 106/59 (75) 98 02/21/19 19:00 106/59 02/21/19 19:00 103 18 Facial 50 02/21/19 18:30 115 15 86/65 (72) 100 02/21/19 18:00 115 15 78/62 (67) 93 02/21/19 17:30 125 17 96/80 (85) 97 02/21/19 17:00 121 16 111/65 (80) 96 02/21/19 16:32 118 19 93 Facial 50 02/21/19 16:30 126 19 90/53 (65) 96 02/21/19 16:00 Venturi Mask 02/21/19 16:00 124 02/21/19 16:00 97.5 131 19 98/79 (85) 93 02/21/19 15:30 122 20 101/68 (79) 95 02/21/19 15:00 126 21 117/68 (84) 97 02/21/19 14:30 125 21 97/70 (79) 97 02/21/19 14:00 125 21 97/70 (79) 91 02/21/19 13:30 126 20 93/72 (79) 97 02/21/19 13:00 127 20 96/62 (73) 02/21/19 12:30 97.7 133 21 99/66 (77) 89 02/21/19 12:00 Venturi Mask 02/21/19 12:00 117 02/21/19 12:00 131 22 99/82 (88) 98 02/21/19 11:30 129 17 113/71 (85) 02/21/19 11:00 128 24 122/75 (91) 98 02/21/19 10:36 99/75 02/21/19 10:30 133 19 111/77 (88) 100 02/21/19 10:00 134 22 99/75 (83) 96 02/21/19 09:30 128 21 112/86 (95) 96 02/21/19 09:00 135 25 96/69 (78) Intake and Output 02/21/19 02/22/19 19:00 07:00 Intake Total 1122.5 ml 2112.5 ml Output Total 120 ml 150 ml Balance 1002.5 ml 1962.5 ml Intake Oral 0 ml IV Total 1122.5 ml 1862.5 ml Blood Product 250 ml Output Urine Total 120 ml 150 ml # Bowel Movements 2 Laboratory Tests 02/21/19 09:10: Arterial Blood pH 7.284L, Arterial Blood Partial Pressure CO2 43.4, Arterial Blood Partial Pressure O2 72.9L, Arterial Blood HCO3 20.1L, Arterial Blood Oxygen Saturation 92.0L, Arterial Blood Base Excess -6.1L, Melchor Test Positive 02/21/19 10:05: Lactic Acid Level 3.40H 02/21/19 15:55: Lactic Acid Level 2.70H 02/21/19 19:56: Arterial Blood pH 7.335L, Arterial Blood Partial Pressure CO2 40.8, Arterial Blood Partial Pressure O2 121.9H, Arterial Blood HCO3 21.3L, Arterial Blood Oxygen Saturation 98.1, Arterial Blood Base Excess -4.2L, Melchor Test Positive 02/21/19 21:40: Lactic Acid Level 2.20H 02/21/19 23:55: Lactic Acid Level 3.70H 02/22/19 02:00: Lactic Acid Level 4.20H 02/22/19 04:00: White Blood Count 14.0H, Red Blood Count 2.86L, Hemoglobin 9.5L, Hematocrit 30.4L, Mean Corpuscular Volume 107H, Mean Corpuscular Hemoglobin 33.3H, Mean Corpuscular Hemoglobin Concent 31.3L, Red Cell Distribution Width 19.8H, Platelet Count 83L, Mean Platelet Volume 7.5, Neutrophils (%) (Auto) , Lymphocytes (%) (Auto) , Monocytes (%) (Auto) , Eosinophils (%) (Auto) , Basophils (%) (Auto) , Neutrophils % (Manual) [Pending], Lymphocytes % (Manual) [Pending], Platelet Estimate [Pending], Platelet Morphology [Pending], Sodium Level 135L, Potassium Level 4.3, Chloride Level 102, Carbon Dioxide Level 22, Anion Gap 11, Blood Urea Nitrogen 52H, Creatinine 2.2H, Estimat Glomerular Filtration Rate , Glucose Level 195H, Uric Acid 8.3H, Calcium Level 6.7L, Phosphorus Level 4.3, Magnesium Level 2.0, Total Bilirubin 2.6H, Direct Bilirubin 1.5H, Aspartate Amino Transf (AST/SGOT) 72H, Alanine Aminotransferase (ALT/SGPT) 39, Alkaline Phosphatase 97, Troponin I 0.191H, Total Protein 6.4, Albumin 2.4L, Globulin 4.0, Albumin/Globulin Ratio 0.6L, Alpha Fetoprotein [ Pending], Cortisol AM Sample [Pending], Hepatitis A IgM Antibody [Pending], Hepatitis B Surface Antigen [Pending], Hepatitis B Core IgM Antibody [Pending], Hepatitis C Antibody [Pending] 02/22/19 04:45: Urine Eosinophils None seen 02/22/19 04:50: Lactic Acid Level 4.70H Height (Feet): 5 Height (Inches): 6.00 Weight (Pounds): 154 Objective General Appearance: WD/WN, confused. awake but nonverbal Neck: supple Cardiovascular: irregularly irregular Respiratory/Chest: chest wall non-tender, lungs clear, normal breath sounds, no respiratory distress Abdomen: normal bowel sounds, non tender, soft, no organomegaly Edema: no edema noted Arm (L), no edema noted Arm (R), no edema noted Leg (L), no edema noted Leg (R), no edema noted Pedal (L), no edema noted Pedal (R), no edema noted Generalized Neurologic: disoriented Mitchel Reis MD Feb 22, 2019 08:37
--- NOTE | 2019-02-22 08:45 | Critical Care Progress Note ---
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, chronic atrial fibrillation, hypertension, diastolic congestive heart failure, septic shock, hypothermia, hypotension, hypoxemia severe PCM, thrombocytopenia, anemia, leukocytosis, acute renal failure tachycardia PLAN care noted thao US negative support as able full code pressors as needed IV antibiotics respiratory care SNF meds supportive care suction as needed monitor for aspiration oxygen therapy as needed BIPAP and may need intubation close follow up of acid base for now prognosis guarded medications/laboratory data/nursing notes/ICU care reviewed in detail note reviewed and edited care discussed with RN and RT ICU time spent 42 minutes Critical Care - Subjective Interval Events: ICU events reviewed care noted and discussed doing poorly tachy and hypotensive ROS Limited/Unobtainable: Yes Condition: critical EKG Rhythm: Sinus Rhythm I&O: Intake and Output 02/21/19 02/22/19 19:00 07:00 Intake Total 1122.5 ml 2112.5 ml Output Total 120 ml 150 ml Balance 1002.5 ml 1962.5 ml Intake Oral 0 ml IV Total 1122.5 ml 1862.5 ml Blood Product 250 ml Output Urine Total 120 ml 150 ml # Bowel Movements 2 Critical Care - Objective Last 24 Hour Vital Signs Date Time Temp Pulse Resp B/P (MAP) Pulse Ox O2 Delivery O2 Flow Rate FiO2 02/22/19 08:00 143 22 96/71 (79) 02/22/19 07:30 97.0 143 18 88/61 (70) 02/22/19 07:22 Bi-Pap 40 02/22/19 07:21 139 17 Facial 40 02/22/19 07:00 143 19 86/70 (75) 02/22/19 06:45 139 18 82/68 (73) 02/22/19 06:30 139 18 94/79 (84) 02/22/19 06:16 91/71 02/22/19 06:15 139 19 91/71 (78) 02/22/19 06:10 130 99/69 02/22/19 06:00 140 17 99/69 (79) 02/22/19 06:00 94/79 02/22/19 05:45 138 17 101/61 (74) 02/22/19 05:30 140 18 99/72 (81) 02/22/19 05:15 141 17 101/71 (81) 02/22/19 05:00 141 19 Facial 50 11/14/19 05:00 99/84 02/22/19 05:00 142 17 99/84 (89) 02/22/19 04:45 142 17 87/60 (69) 02/22/19 04:30 143 17 91/46 (61) 02/22/19 04:15 143 20 100/82 (88) 02/22/19 04:00 97.4 146 22 89/63 (72) 02/22/19 04:00 50 02/22/19 04:00 89/63 02/22/19 04:00 Bi-pap 02/22/19 04:00 140 02/22/19 03:45 145 18 93/61 (72) 02/22/19 03:30 147 20 107/73 (84) 02/22/19 03:15 146 15 107/73 (84) 02/22/19 03:04 140 19 Facial 50 02/22/19 03:00 141 18 97/81 (86) 02/22/19 03:00 97/81 02/22/19 02:45 147 17 105/83 (90) 02/22/19 02:30 148 18 111/53 (72) 02/22/19 02:15 147 17 106/61 (76) 02/22/19 02:00 91/77 02/22/19 02:00 144 16 91/77 (82) 02/22/19 01:45 140 18 100/67 (78) 02/22/19 01:36 93/75 02/22/19 01:30 146 16 93/75 (81) 02/22/19 01:15 148 18 02/22/19 01:15 139 21 Facial 50 02/22/19 01:00 99/72 02/22/19 01:00 149 18 99/72 (81) 02/22/19 00:45 146 15 109/77 (88) 02/22/19 00:30 144 17 94/79 (84) 02/22/19 00:15 149 17 108/77 (87) 02/22/19 00:00 Bi-pap 02/22/19 00:00 144 02/22/19 00:00 107/78 02/22/19 00:00 50 02/22/19 00:00 97.5 147 107/78 (88) 02/21/19 23:45 147 17 72/47 (55) 02/21/19 23:30 144 18 78/34 (49) 02/21/19 23:15 148 17 130/81 (97) 02/21/19 23:10 135 17 Facial 50 02/21/19 23:00 149 18 84/49 (61) 02/21/19 23:00 84/49 02/21/19 22:45 147 17 111/90 (97) 02/21/19 22:30 148 16 119/96 (104) 02/21/19 22:19 148 18 158/107 (124) 74 02/21/19 22:15 145 17 38/12 (21) 02/21/19 22:00 69/15 02/21/19 22:00 146 16 42/13 (23) 02/21/19 21:45 139 15 74/55 (61) 02/21/19 21:45 138 70/34 02/21/19 21:30 140 15 70/34 (46) 02/21/19 21:15 130 15 116/87 (97) 02/21/19 21:00 88/60 02/21/19 21:00 129 16 69/15 (33) 02/21/19 20:51 115 18 Facial 50 02/21/19 20:45 110 12 56/21 (33) 02/21/19 20:30 112 14 82/55 (64) 02/21/19 20:15 111 16 76/57 (63) 02/21/19 20:00 Bi-pap 02/21/19 20:00 143 02/21/19 20:00 86/60 02/21/19 20:00 114 15 86/60 (69) 02/21/19 20:00 50 02/21/19 19:56 Bi-Pap 50 02/21/19 19:45 112 16 114/55 (74) 02/21/19 19:30 98.0 109 16 80/55 (63) 98 02/21/19 19:00 110 16 106/59 (75) 98 02/21/19 19:00 106/59 02/21/19 19:00 103 18 Facial 50 02/21/19 18:30 115 15 86/65 (72) 100 02/21/19 18:00 115 15 78/62 (67) 93 02/21/19 17:30 125 17 96/80 (85) 97 02/21/19 17:00 121 16 111/65 (80) 96 02/21/19 16:32 118 19 93 Facial 50 02/21/19 16:30 126 19 90/53 (65) 96 02/21/19 16:00 Venturi Mask 02/21/19 16:00 124 02/21/19 16:00 97.5 131 19 98/79 (85) 93 02/21/19 15:30 122 20 101/68 (79) 95 02/21/19 15:00 126 21 117/68 (84) 97 02/21/19 14:30 125 21 97/70 (79) 97 02/21/19 14:00 125 21 97/70 (79) 91 02/21/19 13:30 126 20 93/72 (79) 97 02/21/19 13:00 127 20 96/62 (73) 02/21/19 12:30 97.7 133 21 99/66 (77) 89 02/21/19 12:00 Venturi Mask 02/21/19 12:00 117 02/21/19 12:00 131 22 99/82 (88) 98 02/21/19 11:30 129 17 113/71 (85) 02/21/19 11:00 128 24 122/75 (91) 98 02/21/19 10:36 99/75 02/21/19 10:30 133 19 111/77 (88) 100 02/21/19 10:00 134 22 99/75 (83) 96 02/21/19 09:30 128 21 112/86 (95) 96 02/21/19 09:00 135 25 96/69 (78) Labs: Laboratory Tests Test 02/21/19 09:10 02/21/19 10:05 02/21/19 15:55 02/21/19 19:56 Arterial Blood pH 7.284 (7.350-7.450) 7.335 (7.350-7.450) Arterial Blood Partial Pressure CO2 43.4 mmHg (35.0-45.0) 40.8 mmHg (35.0-45.0) Arterial Blood Partial Pressure O2 72.9 mmHg (75.0-100.0) L 121.9 mmHg (75.0-100.0) H Arterial Blood HCO3 20.1 mmol/L (22.0-26.0) L 21.3 mmol/L (22.0-26.0) L Arterial Blood Oxygen Saturation 92.0 % (95-100) L 98.1 % (95-100) Arterial Blood Base Excess -6.1 (-2-2) L -4.2 (-2-2) L Melchor Test Positive Positive Lactic Acid Level 3.40 mmol/L (0.66-2.22) H 2.70 mmol/L (0.4-2.0) H Test 02/21/19 21:40 02/21/19 23:55 02/22/19 02:00 02/22/19 04:00 Lactic Acid Level 2.20 mmol/L (0.4-2.0) H 3.70 mmol/L (0.66-2.22) H 4.20 mmol/L (0.4-2.0) H White Blood Count 14.0 K/UL (4.8-10.8) H Red Blood Count 2.86 M/UL (4.20-5.40) L Hemoglobin 9.5 G/DL (12.0-16.0) L Hematocrit 30.4 % (37.0-47.0) L Mean Corpuscular Volume 107 FL (80-99) H Mean Corpuscular Hemoglobin 33.3 PG (27.0-31.0) H Mean Corpuscular Hemoglobin Concent 31.3 G/DL (32.0-36.0) L Red Cell Distribution Width 19.8 % (11.6-14.8) H Platelet Count 83 K/UL (150-450) L Mean Platelet Volume 7.5 FL (6.5-10.1) Neutrophils (%) (Auto) % (45.0-75.0) Lymphocytes (%) (Auto) % (20.0-45.0) Monocytes (%) (Auto) % (1.0-10.0) Eosinophils (%) (Auto) % (0.0-3.0) Basophils (%) (Auto) % (0.0-2.0) Neutrophils % (Manual) Pending Lymphocytes % (Manual) Pending Platelet Estimate Pending Platelet Morphology Pending Sodium Level 135 MMOL/L (136-145) L Potassium Level 4.3 MMOL/L (3.5-5.1) Chloride Level 102 MMOL/L (98-107) Carbon Dioxide Level 22 MMOL/L (21-32) Anion Gap 11 mmol/L (5-15) Blood Urea Nitrogen 52 mg/dL (7-18) H Creatinine 2.2 MG/DL (0.55-1.30) H Estimat Glomerular Filtration Rate mL/min (>60) Glucose Level 195 MG/DL (74-106) H Uric Acid 8.3 MG/DL (2.6-7.2) H Calcium Level 6.7 MG/DL (8.5-10.1) L Phosphorus Level 4.3 MG/DL (2.5-4.9) Magnesium Level 2.0 MG/DL (1.8-2.4) Total Bilirubin 2.6 MG/DL (0.2-1.0) H Direct Bilirubin 1.5 MG/DL (0.0-0.3) H Aspartate Amino Transf (AST/SGOT) 72 U/L (15-37) H Alanine Aminotransferase (ALT/SGPT) 39 U/L (12-78) Alkaline Phosphatase 97 U/L (46-116) Troponin I 0.191 ng/mL (0.000-0.056) Total Protein 6.4 G/DL (6.4-8.2) Albumin 2.4 G/DL (3.4-5.0) L Globulin 4.0 g/dL Albumin/Globulin Ratio 0.6 (1.0-2.7) L Alpha Fetoprotein Pending Cortisol AM Sample Pending Hepatitis A IgM Antibody Pending Hepatitis B Surface Antigen Pending Hepatitis B Core IgM Antibody Pending Hepatitis C Antibody Pending Test 02/22/19 04:45 02/22/19 04:50 Urine Eosinophils None seen (NONE SEEN) Lactic Acid Level 4.70 mmol/L (0.66-2.22) H Objective: PHYSICAL EXAMINATION: GENERAL: The patient is a chronically ill-appearing female, in no apparent distress. poor LOC NECK: Supple. There is a central line in the right subclavian area. HEART: tachy RR.without MRG LUNGS: reduced with some rhonchi; no wheeze ABDOMEN: Soft, nontender, nondistended. no HSM EXTREMITIES: No clubbing, cyanosis, or edema. NEURO: response to pain skin noted Micro: Microbiology Date/Time Source Procedure Growth Status 02/19/19 11:15 Blood Blood Culture - Preliminary NO GROWTH AFTER 48 HOURS Resulted 02/19/19 11:00 Blood Blood Culture - Preliminary NO GROWTH AFTER 48 HOURS Resulted 02/19/19 14:30 Nasal Nares MRSA Culture - Final NO METHICILLIN RESISTANT STAPH AUREUS... Complete 02/19/19 12:00 Urine,Clean Catch Urine Culture - Final Cristy Albicans Complete 02/19/19 14:30 Rectal Mucosa VRE Culture - Final Enterococcus Faecium - Vre Complete Accucheck: 72 Jan Anderson MD Feb 22, 2019 08:45
--- NOTE | 2019-02-22 09:00 | NUR ---
NURSE NOTES: Abdominal U/S is being done at bedside. Dr Louis here to see the patient. Updated him with pt's current condition. Will carry out orders received. l
[2019-02-22] MEDS: Pantoprazole Inj IVP SCH ×2 (09:39→20:25)
[2019-02-22] MEDS: Sodium Citrate 30ml GT SCH ×2 (09:39→20:25)
[2019-02-22] MEDS: Fluconazole 100mg tab ORAL SCH (09:39)
[2019-02-22] MEDS: Piperacillin/Tazobactam 3.375 GM in NS 110 ML IVPB SCH ×2 (09:40→20:25)
--- NOTE | 2019-02-22 09:43 | Nephrology Progress Note ---
Assessment/Plan Problem List: (1) Septic shock (2) Renal failure (3) Atrial fibrillation with rapid ventricular response (4) Cardiomyopathy Assessment Renal failure - ? Acute on Chronic, Partly dehydration Septic Shock UTI AT Fib with FVR h/o DM, proteinuria , HypoAlbuminemia Plan On 2 pressors max- BP remains low Poor prognosis - remains full code for now slow Hydrate 2D echo EjFx 40% antibiotics monitor renal parameters avoid nephrotoxics per orders Subjective ROS Limited/Unobtainable: Yes Objective Objective Last 24 Hour Vital Signs Date Time Temp Pulse Resp B/P (MAP) Pulse Ox O2 Delivery O2 Flow Rate FiO2 02/22/19 08:00 143 22 96/71 (79) 02/22/19 07:30 97.0 143 18 88/61 (70) 02/22/19 07:22 Bi-Pap 40 02/22/19 07:21 139 17 Facial 40 02/22/19 07:00 143 19 86/70 (75) 02/22/19 06:45 139 18 82/68 (73) 02/22/19 06:30 139 18 94/79 (84) 02/22/19 06:16 91/71 02/22/19 06:15 139 19 91/71 (78) 02/22/19 06:10 130 99/69 02/22/19 06:00 140 17 99/69 (79) 02/22/19 06:00 94/79 02/22/19 05:45 138 17 101/61 (74) 02/22/19 05:30 140 18 99/72 (81) 02/22/19 05:15 141 17 101/71 (81) 02/22/19 05:00 141 19 Facial 50 02/22/19 05:00 99/84 02/22/19 05:00 142 17 99/84 (89) 02/22/19 04:45 142 17 87/60 (69) 02/22/19 04:30 143 17 91/46 (61) 02/22/19 04:15 143 20 100/82 (88) 02/22/19 04:00 97.4 146 22 89/63 (72) 02/22/19 04:00 50 02/22/19 04:00 89/63 02/22/19 04:00 Bi-pap 02/22/19 04:00 140 02/22/19 03:45 145 18 93/61 (72) 02/22/19 03:30 147 20 107/73 (84) 02/22/19 03:15 146 15 107/73 (84) 02/22/19 03:04 140 19 Facial 50 02/22/19 03:00 141 18 97/81 (86) 02/22/19 03:00 97/81 02/22/19 02:45 147 17 105/83 (90) 02/22/19 02:30 148 18 111/53 (72) 02/22/19 02:15 147 17 106/61 (76) 02/22/19 02:00 91/77 02/22/19 02:00 144 16 91/77 (82) 02/22/19 01:45 140 18 100/67 (78) 02/22/19 01:36 93/75 02/22/19 01:30 146 16 93/75 (81) 02/22/19 01:15 148 18 02/22/19 01:15 139 21 Facial 50 02/22/19 01:00 99/72 02/22/19 01:00 149 18 99/72 (81) 02/22/19 00:45 146 15 109/77 (88) 02/22/19 00:30 144 17 94/79 (84) 02/22/19 00:15 149 17 108/77 (87) 02/22/19 00:00 Bi-pap 02/22/19 00:00 144 02/22/19 00:00 107/78 02/22/19 00:00 50 02/22/19 00:00 97.5 147 107/78 (88) 02/21/19 23:45 147 17 72/47 (55) 02/21/19 23:30 144 18 78/34 (49) 02/21/19 23:15 148 17 130/81 (97) 02/21/19 23:10 135 17 Facial 50 02/21/19 23:00 149 18 84/49 (61) 02/21/19 23:00 84/49 02/21/19 22:45 147 17 111/90 (97) 02/21/19 22:30 148 16 119/96 (104) 02/21/19 22:19 148 18 158/107 (124) 74 02/21/19 22:15 145 17 38/12 (21) 02/21/19 22:00 69/15 02/21/19 22:00 146 16 42/13 (23) 02/21/19 21:45 139 15 74/55 (61) 02/21/19 21:45 138 70/34 02/21/19 21:30 140 15 70/34 (46) 02/21/19 21:15 130 15 116/87 (97) 02/21/19 21:00 88/60 02/21/19 21:00 129 16 69/15 (33) 02/21/19 20:51 115 18 Facial 50 02/21/19 20:45 110 12 56/21 (33) 02/21/19 20:30 112 14 82/55 (64) 02/21/19 20:15 111 16 76/57 (63) 02/21/19 20:00 Bi-pap 02/21/19 20:00 143 02/21/19 20:00 86/60 02/21/19 20:00 114 15 86/60 (69) 02/21/19 20:00 50 02/21/19 19:56 Bi-Pap 50 02/21/19 19:45 112 16 114/55 (74) 02/21/19 19:30 98.0 109 16 80/55 (63) 98 02/21/19 19:00 110 16 106/59 (75) 98 02/21/19 19:00 106/59 02/21/19 19:00 103 18 Facial 50 02/21/19 18:30 115 15 86/65 (72) 100 02/21/19 18:00 115 15 78/62 (67) 93 02/21/19 17:30 125 17 96/80 (85) 97 02/21/19 17:00 121 16 111/65 (80) 96 02/21/19 16:32 118 19 93 Facial 50 02/21/19 16:30 126 19 90/53 (65) 96 02/21/19 16:00 Venturi Mask 02/21/19 16:00 124 02/21/19 16:00 97.5 131 19 98/79 (85) 93 02/21/19 15:30 122 20 101/68 (79) 95 02/21/19 15:00 126 21 117/68 (84) 97 02/21/19 14:30 125 21 97/70 (79) 97 02/21/19 14:00 125 21 97/70 (79) 91 02/21/19 13:30 126 20 93/72 (79) 97 02/21/19 13:00 127 20 96/62 (73) 02/21/19 12:30 97.7 133 21 99/66 (77) 89 02/21/19 12:00 Venturi Mask 02/21/19 12:00 117 02/21/19 12:00 131 22 99/82 (88) 98 02/21/19 11:30 129 17 113/71 (85) 02/21/19 11:00 128 24 122/75 (91) 98 02/21/19 10:36 99/75 02/21/19 10:30 133 19 111/77 (88) 100 02/21/19 10:00 134 22 99/75 (83) 96 Intake and Output 02/21/19 02/22/19 19:00 07:00 Intake Total 1122.5 ml 2112.5 ml Output Total 120 ml 150 ml Balance 1002.5 ml 1962.5 ml Intake Oral 0 ml IV Total 1122.5 ml 1862.5 ml Blood Product 250 ml Output Urine Total 120 ml 150 ml # Bowel Movements 2 Laboratory Tests 02/21/19 10:05: Lactic Acid Level 3.40H 02/21/19 15:55: Lactic Acid Level 2.70H 02/21/19 19:56: Arterial Blood pH 7.335L, Arterial Blood Partial Pressure CO2 40.8, Arterial Blood Partial Pressure O2 121.9H, Arterial Blood HCO3 21.3L, Arterial Blood Oxygen Saturation 98.1, Arterial Blood Base Excess -4.2L, Melchor Test Positive 02/21/19 21:40: Lactic Acid Level 2.20H 02/21/19 23:55: Lactic Acid Level 3.70H 02/22/19 02:00: Lactic Acid Level 4.20H 02/22/19 04:00: White Blood Count 14.0H, Red Blood Count 2.86L, Hemoglobin 9.5L, Hematocrit 30.4L, Mean Corpuscular Volume 107H, Mean Corpuscular Hemoglobin 33.3H, Mean Corpuscular Hemoglobin Concent 31.3L, Red Cell Distribution Width 19.8H, Platelet Count 83L, Mean Platelet Volume 7.5, Neutrophils (%) (Auto) , Lymphocytes (%) (Auto) , Monocytes (%) (Auto) , Eosinophils (%) (Auto) , Basophils (%) (Auto) , Differential Total Cells Counted 100, Neutrophils % ( Manual) 91H, Lymphocytes % (Manual) 6L, Monocytes % (Manual) 3, Eosinophils % ( Manual) 0, Basophils % (Manual) 0, Band Neutrophils 0, Nucleated Red Blood Cells 1, Platelet Estimate DecreasedL, Platelet Morphology Normal, Anisocytosis 1+, Macrocytosis 1+, Blister Cells 1+, Acanthocytes 1+, Schistocytes , Sodium Level 135L, Potassium Level 4.3, Chloride Level 102, Carbon Dioxide Level 22, Anion Gap 11, Blood Urea Nitrogen 52H, Creatinine 2.2H, Estimat Glomerular Filtration Rate , Glucose Level 195H, Uric Acid 8.3H, Calcium Level 6.7L, Phosphorus Level 4.3, Magnesium Level 2.0, Total Bilirubin 2.6H, Direct Bilirubin 1.5H, Aspartate Amino Transf (AST/SGOT) 72H, Alanine Aminotransferase (ALT/SGPT) 39, Alkaline Phosphatase 97, Troponin I 0.191H, Total Protein 6.4, Albumin 2.4L, Globulin 4.0, Albumin/Globulin Ratio 0.6L, Alpha Fetoprotein [ Pending], Cortisol AM Sample [Pending], Hepatitis A IgM Antibody [Pending], Hepatitis B Surface Antigen [Pending], Hepatitis B Core IgM Antibody [Pending], Hepatitis C Antibody [Pending] 02/22/19 04:45: Urine Eosinophils None seen 02/22/19 04:50: Lactic Acid Level 4.70H Height (Feet): 5 Height (Inches): 6.00 Weight (Pounds): 154 General Appearance: mild distress EENT: other - on MAsk Cardiovascular: tachycardia Respiratory/Chest: decreased breath sounds Abdomen: distended Jt Louis MD Feb 22, 2019 09:43
[2019-02-22] MEDS ORDERED: Calcium Gluconate 10% 1 GM in NS 110 ML IVPB SCH (10:00)
--- NOTE | 2019-02-22 10:16 | NUR ---
NURSE NOTES: Called and left a message to Dr Reis regarding ABG result. Awaiting call back for new orders.
--- NOTE | 2019-02-22 10:27 | Infectious Diseases Prog Note ---
Assessment/Plan Assessment/Plan A 1. pneumonia 2. fungal UTI 3.Acute renal failure 4. septic shock 5. CHF, systolic 6. dementia 7. Hypoxic respiratory failure 8. 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 continue Zosyn & fluconazole 2. will follow up cultures 3. Poor prognosis Subjective ROS Limited/Unobtainable: Yes Constitutional: Reports: other - critically it; Denies: fever Cardiovascular: Reports: other - on maximal dose of pressors, PICC line placed Allergies: Coded Allergies: No Known Allergies (Unverified , 02/19/19) Objective Vital Signs Last 24 Hour Vital Signs Date Time Temp Pulse Resp B/P (MAP) Pulse Ox O2 Delivery O2 Flow Rate FiO2 02/22/19 08:55 130 23 Facial 40 02/22/19 08:00 143 22 96/71 (79) 02/22/19 07:30 97.0 143 18 88/61 (70) 02/22/19 07:22 Bi-Pap 40 02/22/19 07:21 139 17 Facial 40 02/22/19 07:00 143 19 86/70 (75) 02/22/19 06:45 139 18 82/68 (73) 02/22/19 06:30 139 18 94/79 (84) 02/22/19 06:16 91/71 02/22/19 06:15 139 19 91/71 (78) 02/22/19 06:10 130 99/69 02/22/19 06:00 140 17 99/69 (79) 02/22/19 06:00 94/79 02/22/19 05:45 138 17 101/61 (74) 02/22/19 05:30 140 18 99/72 (81) 02/22/19 05:15 141 17 101/71 (81) 02/22/19 05:00 141 19 Facial 50 02/22/19 05:00 99/84 02/22/19 05:00 142 17 99/84 (89) 02/22/19 04:45 142 17 87/60 (69) 02/22/19 04:30 143 17 91/46 (61) 02/22/19 04:15 143 20 100/82 (88) 02/22/19 04:00 97.4 146 22 89/63 (72) 02/22/19 04:00 50 02/22/19 04:00 89/63 02/22/19 04:00 Bi-pap 02/22/19 04:00 140 02/22/19 03:45 145 18 93/61 (72) 02/22/19 03:30 147 20 107/73 (84) 02/22/19 03:15 146 15 107/73 (84) 02/22/19 03:04 140 19 Facial 50 02/22/19 03:00 141 18 97/81 (86) 02/22/19 03:00 97/81 02/22/19 02:45 147 17 105/83 (90) 02/22/19 02:30 148 18 111/53 (72) 02/22/19 02:15 147 17 106/61 (76) 02/22/19 02:00 91/77 02/22/19 02:00 144 16 91/77 (82) 02/22/19 01:45 140 18 100/67 (78) 02/22/19 01:36 93/75 02/22/19 01:30 146 16 93/75 (81) 02/22/19 01:15 148 18 02/22/19 01:15 139 21 Facial 50 02/22/19 01:00 99/72 02/22/19 01:00 149 18 99/72 (81) 02/22/19 00:45 146 15 109/77 (88) 02/22/19 00:30 144 17 94/79 (84) 02/22/19 00:15 149 17 108/77 (87) 02/22/19 00:00 Bi-pap 02/22/19 00:00 144 02/22/19 00:00 107/78 02/22/19 00:00 50 02/22/19 00:00 97.5 147 107/78 (88) 02/21/19 23:45 147 17 72/47 (55) 02/21/19 23:30 144 18 78/34 (49) 02/21/19 23:15 148 17 130/81 (97) 02/21/19 23:10 135 17 Facial 50 02/21/19 23:00 149 18 84/49 (61) 02/21/19 23:00 84/49 02/21/19 22:45 147 17 111/90 (97) 02/21/19 22:30 148 16 119/96 (104) 02/21/19 22:19 148 18 158/107 (124) 74 02/21/19 22:15 145 17 38/12 (21) 02/21/19 22:00 69/15 02/21/19 22:00 146 16 42/13 (23) 02/21/19 21:45 139 15 74/55 (61) 02/21/19 21:45 138 70/34 02/21/19 21:30 140 15 70/34 (46) 02/21/19 21:15 130 15 116/87 (97) 02/21/19 21:00 88/60 02/21/19 21:00 129 16 69/15 (33) 02/21/19 20:51 115 18 Facial 50 02/21/19 20:45 110 12 56/21 (33) 02/21/19 20:30 112 14 82/55 (64) 02/21/19 20:15 111 16 76/57 (63) 02/21/19 20:00 Bi-pap 02/21/19 20:00 143 02/21/19 20:00 86/60 02/21/19 20:00 114 15 86/60 (69) 02/21/19 20:00 50 02/21/19 19:56 Bi-Pap 50 02/21/19 19:45 112 16 114/55 (74) 02/21/19 19:30 98.0 109 16 80/55 (63) 98 02/21/19 19:00 110 16 106/59 (75) 98 02/21/19 19:00 106/59 02/21/19 19:00 103 18 Facial 50 02/21/19 18:30 115 15 86/65 (72) 100 02/21/19 18:00 115 15 78/62 (67) 93 02/21/19 17:30 125 17 96/80 (85) 97 02/21/19 17:00 121 16 111/65 (80) 96 02/21/19 16:32 118 19 93 Facial 50 02/21/19 16:30 126 19 90/53 (65) 96 02/21/19 16:00 Venturi Mask 02/21/19 16:00 124 02/21/19 16:00 97.5 131 19 98/79 (85) 93 02/21/19 15:30 122 20 101/68 (79) 95 02/21/19 15:00 126 21 117/68 (84) 97 02/21/19 14:30 125 21 97/70 (79) 97 02/21/19 14:00 125 21 97/70 (79) 91 02/21/19 13:30 126 20 93/72 (79) 97 02/21/19 13:00 127 20 96/62 (73) 02/21/19 12:30 97.7 133 21 99/66 (77) 89 02/21/19 12:00 Venturi Mask 02/21/19 12:00 117 02/21/19 12:00 131 22 99/82 (88) 98 02/21/19 11:30 129 17 113/71 (85) 02/21/19 11:00 128 24 122/75 (91) 98 02/21/19 10:36 99/75 02/21/19 10:30 133 19 111/77 (88) 100 Height (Feet): 5 Height (Inches): 6.00 Weight (Pounds): 154 HEENT: other Respiratory/Chest: decreased breath sounds, other - on BIPAP Cardiovascular: tachycardia, other - RIJ line with bleeding around it, R arm PICC line Abdomen: distended, other - GT in place Extremities: other - edema Neurologic/Psychiatric: unresponsiveness Microbiology Date/Time Source Procedure Growth Status 02/19/19 11:15 Blood Blood Culture - Preliminary NO GROWTH AFTER 48 HOURS Resulted 02/19/19 11:00 Blood Blood Culture - Preliminary NO GROWTH AFTER 48 HOURS Resulted 02/19/19 14:30 Nasal Nares MRSA Culture - Final NO METHICILLIN RESISTANT STAPH AUREUS... Complete 02/19/19 12:00 Urine,Clean Catch Urine Culture - Final Cristy Albicans Complete 02/19/19 14:30 Rectum - Preliminary K.pneumoniae Carbapenem Resist Resulted 02/19/19 14:30 Rectal Mucosa VRE Culture - Final Enterococcus Faecium - Vre Complete Laboratory Tests Test 02/21/19 15:55 02/21/19 19:56 02/21/19 21:40 02/21/19 23:55 Lactic Acid Level 2.70 mmol/L (0.4-2.0) H 2.20 mmol/L (0.4-2.0) H 3.70 mmol/L (0.66-2.22) H Arterial Blood pH 7.335 (7.350-7.450) Arterial Blood Partial Pressure CO2 40.8 mmHg (35.0-45.0) Arterial Blood Partial Pressure O2 121.9 mmHg (75.0-100.0) H Arterial Blood HCO3 21.3 mmol/L (22.0-26.0) L Arterial Blood Oxygen Saturation 98.1 % (95-100) Arterial Blood Base Excess -4.2 (-2-2) L Melchor Test Positive Test 02/22/19 02:00 02/22/19 04:00 02/22/19 04:45 02/22/19 04:50 Lactic Acid Level 4.20 mmol/L (0.4-2.0) H 4.70 mmol/L (0.66-2.22) H White Blood Count 14.0 K/UL (4.8-10.8) H Red Blood Count 2.86 M/UL (4.20-5.40) L Hemoglobin 9.5 G/DL (12.0-16.0) L Hematocrit 30.4 % (37.0-47.0) L Mean Corpuscular Volume 107 FL (80-99) H Mean Corpuscular Hemoglobin 33.3 PG (27.0-31.0) H Mean Corpuscular Hemoglobin Concent 31.3 G/DL (32.0-36.0) L Red Cell Distribution Width 19.8 % (11.6-14.8) H Platelet Count 83 K/UL (150-450) L Mean Platelet Volume 7.5 FL (6.5-10.1) Neutrophils (%) (Auto) % (45.0-75.0) Lymphocytes (%) (Auto) % (20.0-45.0) Monocytes (%) (Auto) % (1.0-10.0) Eosinophils (%) (Auto) % (0.0-3.0) Basophils (%) (Auto) % (0.0-2.0) Differential Total Cells Counted 100 Neutrophils % (Manual) 91 % (45-75) H Lymphocytes % (Manual) 6 % (20-45) L Monocytes % (Manual) 3 % (1-10) Eosinophils % (Manual) 0 % (0-3) Basophils % (Manual) 0 % (0-2) Band Neutrophils 0 % (0-8) Nucleated Red Blood Cells 1 /100 WBC Platelet Estimate Decreased L Platelet Morphology Normal Anisocytosis 1+ Macrocytosis 1+ Blister Cells 1+ Acanthocytes 1+ Schistocytes Sodium Level 135 MMOL/L (136-145) L Potassium Level 4.3 MMOL/L (3.5-5.1) Chloride Level 102 MMOL/L (98-107) Carbon Dioxide Level 22 MMOL/L (21-32) Anion Gap 11 mmol/L (5-15) Blood Urea Nitrogen 52 mg/dL (7-18) H Creatinine 2.2 MG/DL (0.55-1.30) H Estimat Glomerular Filtration Rate mL/min (>60) Glucose Level 195 MG/DL (74-106) H Uric Acid 8.3 MG/DL (2.6-7.2) H Calcium Level 6.7 MG/DL (8.5-10.1) L Phosphorus Level 4.3 MG/DL (2.5-4.9) Magnesium Level 2.0 MG/DL (1.8-2.4) Total Bilirubin 2.6 MG/DL (0.2-1.0) H Direct Bilirubin 1.5 MG/DL (0.0-0.3) H Aspartate Amino Transf (AST/SGOT) 72 U/L (15-37) H Alanine Aminotransferase (ALT/SGPT) 39 U/L (12-78) Alkaline Phosphatase 97 U/L (46-116) Troponin I 0.191 ng/mL (0.000-0.056) Total Protein 6.4 G/DL (6.4-8.2) Albumin 2.4 G/DL (3.4-5.0) L Globulin 4.0 g/dL Albumin/Globulin Ratio 0.6 (1.0-2.7) L Alpha Fetoprotein Pending Cortisol AM Sample Pending Hepatitis A IgM Antibody Pending Hepatitis B Surface Antigen Pending Hepatitis B Core IgM Antibody Pending Hepatitis C Antibody Pending Urine Eosinophils None seen (NONE SEEN) Test 02/22/19 09:52 Arterial Blood pH 7.278 (7.350-7.450) Arterial Blood Partial Pressure CO2 28.6 mmHg (35.0-45.0) L Arterial Blood Partial Pressure O2 87.1 mmHg (75.0-100.0) Arterial Blood HCO3 13.1 mmol/L (22.0-26.0) *L Arterial Blood Oxygen Saturation 95.7 % (95-100) Arterial Blood Base Excess -12.4 (-2-2) *L Melchor Test Positive Current Medications Medications (Trade) Dose Ordered Sig/Pam Route PRN Reason Start Time Stop Time Status Last Admin Dose Admin Acetaminophen (Tylenol) 650 mg Q4H PRN ORAL Mild Pain/Temp > 100.5 02/19/19 17:15 03/21/19 17:14 Calcium Gluconate 1 gm/Sodium Chloride 120 ml @ 240 mls/hr ONCE IVPB 02/22/19 10:00 02/22/19 12:00 Chlorhexidine Gluconate (Dayna-Hex 2%) 1 applic DAILY@2000 TOPIC 02/20/19 20:00 03/22/19 19:59 02/21/19 20:59 Fluconazole (Diflucan) 100 mg DAILY ORAL 02/21/19 10:39 02/28/19 10:38 02/22/19 09:39 Hydrocortisone (Solu-CORTEF) 100 mg EVERY 8 HOURS IV 02/22/19 09:45 02/23/19 22:01 Lactulose (Cephulac) 20 gm TWICE A DAY ORAL 02/21/19 22:15 03/23/19 22:14 02/22/19 09:39 Norepinephrine Bitartrate 16 mg/ Dextrose 500 ml @ 0 mls/hr Q24H IV 02/22/19 12:00 03/24/19 11:59 Norepinephrine Bitartrate 8 mg/ Dextrose 500 ml @ 0 mls/hr Q24H IV 02/20/19 13:00 02/22/19 12:00 02/22/19 06:16 Pantoprazole (Protonix) 40 mg Q12HR IVP 02/20/19 21:00 03/21/19 17:59 02/22/19 09:39 Phenylephrine HCl 100 mg/Sodium Chloride 250 ml @ 0 mls/hr Q24H IV 02/19/19 20:15 03/21/19 20:14 02/22/19 06:10 Piperacillin Sod/ Tazobactam Sod 3.375 gm/Sodium Chloride 110 ml @ 27.5 mls/hr Q12HR IVPB 02/19/19 21:00 02/26/19 20:59 02/22/19 09:40 Sodium Chloride 1,000 ml @ 50 mls/hr Q20H IV 02/21/19 11:14 03/23/19 11:13 02/22/19 04:42 Sodium Citrate (Bicitra) 30 ml EVERY 12 HOURS GT 02/21/19 21:00 03/22/19 11:59 02/22/19 09:39 Neville Cunningham MD Feb 22, 2019 10:27
[2019-02-22] MEDS: Hydrocortisone 100mg Inj IV SCH ×3 (10:34→21:50)
--- NOTE | 2019-02-22 10:39 | NUR ---
NURSE NOTES: Dr Anderson called back and ordered to intubate the patient. Notified RT to prepare intubation at bedside. ER doctor will be called.
--- NOTE | 2019-02-22 11:17 | NUR ---
NURSE NOTES: Pt got intubated by Dr Dukes. Will receive vent setting orders from Dr Anderson and CXR order. ETT 7.0. RT still at bedside, bagging and applying Achor fast.
--- NOTE | 2019-02-22 11:27 | Emergency Room Report ---
Physical Exam Called to intubate patient. Patient admitted with severe septic shock. Last 24 Hour Vital Signs Date Time Temp Pulse Resp B/P (MAP) Pulse Ox O2 Delivery O2 Flow Rate FiO2 02/22/19 10:58 97/81 02/22/19 08:55 130 23 Facial 40 02/22/19 08:00 143 22 96/71 (79) 02/22/19 07:30 97.0 143 18 88/61 (70) 02/22/19 07:22 Bi-Pap 40 02/22/19 07:21 139 17 Facial 40 02/22/19 07:00 143 19 86/70 (75) 02/22/19 06:45 139 18 82/68 (73) 02/22/19 06:30 139 18 94/79 (84) 02/22/19 06:16 91/71 02/22/19 06:15 139 19 91/71 (78) 02/22/19 06:10 130 99/69 02/22/19 06:00 140 17 99/69 (79) 02/22/19 06:00 94/79 02/22/19 05:45 138 17 101/61 (74) 02/22/19 05:30 140 18 99/72 (81) 02/22/19 05:15 141 17 101/71 (81) 02/22/19 05:00 141 19 Facial 50 02/22/19 05:00 99/84 02/22/19 05:00 142 17 99/84 (89) 02/22/19 04:45 142 17 87/60 (69) 02/22/19 04:30 143 17 91/46 (61) 02/22/19 04:15 143 20 100/82 (88) 02/22/19 04:00 97.4 146 22 89/63 (72) 02/22/19 04:00 50 02/22/19 04:00 89/63 02/22/19 04:00 Bi-pap 02/22/19 04:00 140 02/22/19 03:45 145 18 93/61 (72) 02/22/19 03:30 147 20 107/73 (84) 02/22/19 03:15 146 15 107/73 (84) 02/22/19 03:04 140 19 Facial 50 02/22/19 03:00 141 18 97/81 (86) 02/22/19 03:00 97/81 02/22/19 02:45 147 17 105/83 (90) 02/22/19 02:30 148 18 111/53 (72) 02/22/19 02:15 147 17 106/61 (76) 02/22/19 02:00 91/77 02/22/19 02:00 144 16 91/77 (82) 02/22/19 01:45 140 18 100/67 (78) 02/22/19 01:36 93/75 02/22/19 01:30 146 16 93/75 (81) 02/22/19 01:15 148 18 02/22/19 01:15 139 21 Facial 50 02/22/19 01:00 99/72 02/22/19 01:00 149 18 99/72 (81) 02/22/19 00:45 146 15 109/77 (88) 02/22/19 00:30 144 17 94/79 (84) 02/22/19 00:15 149 17 108/77 (87) 02/22/19 00:00 Bi-pap 02/22/19 00:00 144 02/22/19 00:00 107/78 02/22/19 00:00 50 02/22/19 00:00 97.5 147 107/78 (88) 02/21/19 23:45 147 17 72/47 (55) 02/21/19 23:30 144 18 78/34 (49) 02/21/19 23:15 148 17 130/81 (97) 02/21/19 23:10 135 17 Facial 50 02/21/19 23:00 149 18 84/49 (61) 02/21/19 23:00 84/49 02/21/19 22:45 147 17 111/90 (97) 02/21/19 22:30 148 16 119/96 (104) 02/21/19 22:19 148 18 158/107 (124) 74 02/21/19 22:15 145 17 38/12 (21) 02/21/19 22:00 69/15 02/21/19 22:00 146 16 42/13 (23) 02/21/19 21:45 139 15 74/55 (61) 02/21/19 21:45 138 70/34 02/21/19 21:30 140 15 70/34 (46) 02/21/19 21:15 130 15 116/87 (97) 02/21/19 21:00 88/60 02/21/19 21:00 129 16 69/15 (33) 02/21/19 20:51 115 18 Facial 50 02/21/19 20:45 110 12 56/21 (33) 02/21/19 20:30 112 14 82/55 (64) 02/21/19 20:15 111 16 76/57 (63) 02/21/19 20:00 Bi-pap 02/21/19 20:00 143 02/21/19 20:00 86/60 02/21/19 20:00 114 15 86/60 (69) 02/21/19 20:00 50 02/21/19 19:56 Bi-Pap 50 02/21/19 19:45 112 16 114/55 (74) 02/21/19 19:30 98.0 109 16 80/55 (63) 98 02/21/19 19:00 110 16 106/59 (75) 98 02/21/19 19:00 106/59 02/21/19 19:00 103 18 Facial 50 02/21/19 18:30 115 15 86/65 (72) 100 02/21/19 18:00 115 15 78/62 (67) 93 02/21/19 17:30 125 17 96/80 (85) 97 02/21/19 17:00 121 16 111/65 (80) 96 02/21/19 16:32 118 19 93 Facial 50 02/21/19 16:30 126 19 90/53 (65) 96 02/21/19 16:00 Venturi Mask 02/21/19 16:00 124 02/21/19 16:00 97.5 131 19 98/79 (85) 93 02/21/19 15:30 122 20 101/68 (79) 95 02/21/19 15:00 126 21 117/68 (84) 97 02/21/19 14:30 125 21 97/70 (79) 97 02/21/19 14:00 125 21 97/70 (79) 91 02/21/19 13:30 126 20 93/72 (79) 97 02/21/19 13:00 127 20 96/62 (73) 02/21/19 12:30 97.7 133 21 99/66 (77) 89 02/21/19 12:00 Venturi Mask 02/21/19 12:00 117 02/21/19 12:00 131 22 99/82 (88) 98 02/21/19 11:30 129 17 113/71 (85) Sp02 EP Interpretation: reviewed, abnormal - Interpreted as low by me General Appearance: Chronically Ill, Stupor Head: normocephalic, atraumatic Eyes: bilateral eye PERRL ENT: moist mucus membranes Neck: supple Respiratory: respiratory distress, decreased breath sounds Cardiovascular #1: tachycardia Gastrointestinal: decreased bowel sounds Musculoskeletal: other - Flaccid Neurologic: other - Minimally responsive Psychiatric: other - Lethargic Skin: no rash, warm/dry Intubation Intubation : Consent: Emergent Intubation Method: orotracheal Tube Size (cm): 7.0 Medications: Other - None Breath Sounds after Intubation: equal Intubation Complications: O2 saturation decreased - Saturation was already low. With bag valve mask unable to get saturations above 82%. Post Intubation Xray: Yes Attempts: One Patient Tolerated: Well Complications: None Medical Decision Making Diagnostic Impression: Primary Impression: Acute respiratory failure Qualified Codes: J96.01 - Acute respiratory failure with hypoxia ER Course Patient on BiPAP with continued hypoxemia and increased work with breathing. Patient intubated. See procedure notes. Post intubation x-ray with good placement with bilateral infiltrates greater on left. Rhythm Strip Diag. Results EP Interpretation: yes Rhythm: no PVC's, no ectopy, other - Sinus tachycardia Chest X-Ray Diagnostic Results Chest X-Ray Diagnostic Results : Chest X-Ray Ordered: Yes # of Views/Limited/Complete: 1 View Indication: Other EP Interpretation: Yes Interpretation: no pneumothorax, other - Endotracheal tube good placement, infiltrates greater left base Impression: Other Electronically Signed by: Electronically signed by Jimmie Dukes MD Last Vital Signs Date Time Temp Pulse Resp B/P (MAP) Pulse Ox O2 Delivery O2 Flow Rate FiO2 02/22/19 10:58 97/81 02/22/19 08:55 130 23 Facial 40 02/22/19 07:30 97.0 02/21/19 22:19 74 02/21/19 07:29 4.0 Status: improved Disposition: ADMITTED INPATIENT Condition: Critical Referrals: NON PHYSICIAN (PCP) Jimmie Dukes MD Feb 22, 2019 11:27
--- NOTE | 2019-02-22 11:51 | Diagnostic Imaging Report ---
Indication: Abdominal pain Technique: Grayscale and duplex Doppler imaging of the abdomen performed. Comparison: None Findings: The liver is diffusely heterogeneous and shows marked surface nodularity consistent with chronic disease/cirrhosis. The main portal vein is patent and shows abnormal waveform with intermittent antegrade flow and some retrograde flow (hepatofugal flow). Both kidneys are markedly atrophic. There is thickening of the wall the gallbladder. There is moderate ascites. Bilateral pleural effusions are present. Pancreas is poorly seen and aorta is poorly seen due to bowel gas. Spleen appears to be normal in size. IMPRESSION: Chronic liver disease/cirrhosis with signs of portal hypertension including moderate ascites and hepatofugal flow in the portal vein. Gallbladder wall edema nonspecific Bilateral pleural effusions. Medical renal disease
--- NOTE | 2019-02-22 12:15 | Diagnostic Imaging Report ---
Indication: Dyspnea Comparison: 02/19/2019 A single view chest radiograph was obtained. Findings: Pulmonary vascular congestion demonstrated. Left-sided PICC line projects over the right atrium. There is a right jugular line projects over the SVC. Endotracheal tube is just above the nikolay in good position. Cardiomegaly is present. Bones are osteopenic. The left hemidiaphragm is not visualized. IMPRESSION: Mild CHF. Tubes and lines satisfactory Small left pleural effusion is not excluded
--- NOTE | 2019-02-22 12:20 | NUR ---
NURSE NOTES: Notified Dr Reis regarding low BP. SBP 50-60's. Doctor ordered to continue what we are currently doing and wait for bioethics to come and assess the patient. Will keep full code meanwhile as per order.
--- NOTE | 2019-02-22 14:00 | NUR ---
NURSE NOTES: Pt opens eyes spontaneously. Lethargic but more alert. Able to move extremities to light touch. BP is stable in 90-100's with Levophed at 30mcg/min and Phenylephrine at 200mcg/min.
--- NOTE | 2019-02-22 14:14 | NUR ---
NURSE NOTES: Called and left a message to Dr Anderson regarding post-intubation ABG result. Awaiting call back for new orders.
--- NOTE | 2019-02-22 14:24 | NUR ---
CASE MANAGEMENT:REVIEW 02/22/19 SI: SEPTIC SHOCK. RENAL FAILURE' AFIB W/RVR. CARDIOMYOPATHY 97.0 143 18 88/61 90% ON BIPAP WBC+14.0 H/H-9.5/30.4 PLT-83 TROPONIN(+) 0.191 IS: LEVOPHED GTT IV SOLUCORTEF Q8HRS IV ZOSYN Q12 IVF@50/HR LACTULOSE PO BID : ICU STATUS DCP: FROM [facility]
[2019-02-22] MEDS: Norepinephrine Bitartrate 16 MG in D5W 500ml 484 ML IV SCH (14:49)
--- NOTE | 2019-02-22 15:15 | NUR ---
NURSE NOTES: Spoke with Daniela, pharmacist. It is okay to give Solu-medrol since it is far enough to give next one now. Will administer now.
--- NOTE | 2019-02-22 17:01 | NUR ---
NURSE NOTES: Cleaned pt for leaked rectal tube and repositioned pt. No acute distress noted. Will continue to monitor. Addendum: 02/22/19 at 1829 by HELIO JUNG RN RN wrong patient
--- NOTE | 2019-02-22 18:30 | NUR ---
NURSE NOTES: Cleaned pt for moderated amount of loose brown BM. Turned and repositioned pt. Pt is currently on double concentration Levo at 15mcg/min and Phenylephrine at 200mcg/min. Central line dressing for right IJ changed. Will continue to monitor.
--- NOTE | 2019-02-22 19:30 | NUR ---
HAND-OFF: Report given to Jaya Renteria RN.
--- NOTE | 2019-02-22 19:35 | NUR ---
NURSE NOTES: Received patient and report from Jayshree HDZ. Pt's resting in bed, open eyes, somewhat responsive to light stimuli, intubated with ETT 7.0, 22 lipline, with setting AC16, TV550, 50%, PEEP4. Patient is Afib on child monitor, 130s. NPO at this time. GT clamped, no leaking at the GT site at this time. No BM at this time. Gross noted and intact with small clear yellow urine output. Right IJ noted, dressing changed by the previous RN, intact and running NS at 50ml/hr. Also noted LEft upper arm PICC line, running Levophed at 15mcg/min and Luis Angel at 200mcg/min. Bed in low and locked position. Call light within reach. Bed alarm is on. Will continue to monitor and continue plan of care.
--- NOTE | 2019-02-22 19:45 | Progress Note ---
DATE: 02/22/2019 CARDIOLOGY PROGRESS NOTE SUBJECTIVE: Condition has deteriorated. The patient developed worsening respiratory failure. She required intubation and mechanical ventilation. She continues to require pressor support for hypotension. Heart rhythm remains rapid atrial fibrillation. OBJECTIVE: VITAL SIGNS: Blood pressure 94/77, pulse 132, respirations 16, and afebrile. HEENT: Orally intubated. Mechanically ventilated. Not communicative at this time. Jugular venous pressure grossly elevated. LUNGS: With bilateral rales. CARDIAC: Irregularly irregular. Normal S1, S2. A 2/6 systolic murmur at the apex. There is a right-sided fourth heart sound. ABDOMEN: Soft, moderate ascites. EXTREMITIES: With dependent edema. LABORATORY AND DIAGNOSTIC DATA: Chest x-ray reveals small left pleural effusion and pulmonary vascular congestion. Abdominal ultrasound reveals gallbladder wall edema, chronic liver cirrhosis, and portal hypertension with moderate ascites. White count 14, hemoglobin 9.5. Lactic acid 4.7, BUN 52, creatinine 2.2 bicarbonate 22, sodium 135, potassium 4.3. Troponin 0.191. ABG, 7.34, 25, 447 following intubation. IMPRESSION: 1. Sepsis shock. 2. Acute respiratory failure. 3. Metabolic and lactic acidosis. 4. Chronic atrial fibrillation now with rapid ventricular response. 5. Right-sided heart failure. 6. Possible chronic pulmonary emboli. 7. Chronic liver disease with cirrhosis. 8. Portal hypertension. 9. Critical and guarded. PLAN: 1. Antimicrobials. 2. Ventilator support. 3. Volume support. 4. Taper pressors. 5. Stress dose steroid trial likely to benefit from dobutamine in view of relatively normal left ventricular function. Jimmie Mason M.D. DR: GISEL JOB#: [id number] CC:
[2019-02-22] MEDS: Dyna-Hex 2% Top Sol 2oz TOPIC SCH (20:25)
--- NOTE | 2019-02-22 22:00 | NUR ---
NURSE NOTES: Pt's resting in bed, VS stable. Still Afib on pvc monitor. Titrating Luis Angel down current at 60mcg/min. Will continue to monitor.
--- NOTE | 2019-02-22 23:04 | General Progress Note ---
Assessment/Plan Status: not improved, deteriorating Assessment/Plan: Assessment - TF leak - minor, GT relatively new and in good position - Abnormal LFT, ascites - ? chronic liver disease - Lactic acidosis - Resp failure - OBS / Delirium - Azotemia - Diarrhea - poor PX Recommendations - Check C Diff - lactulose trial - supportive care - Abx per ID - check abd ultrasound (may benefit from Contrast CT at later date, if Cr allows ) Subjective Allergies: Coded Allergies: No Known Allergies (Unverified , 02/19/19) Subjective Above noted seen this am in ICU on BIPAP subsequently intubated d/w RN loose BM noted abd U/S ---> Cirrhosis Objective Last 24 Hour Vital Signs Date Time Temp Pulse Resp B/P (MAP) Pulse Ox O2 Delivery O2 Flow Rate FiO2 02/22/19 21:05 121 16 50 02/22/19 21:00 111/76 02/22/19 21:00 136 15 117/78 (91) 93 02/22/19 20:45 139 16 105/72 (83) 02/22/19 20:45 117/78 02/22/19 20:30 105/72 02/22/19 20:30 138 16 105/78 (87) 02/22/19 20:15 140 18 110/88 (95) 02/22/19 20:15 105/78 02/22/19 20:00 Endotracheal Tube 02/22/19 20:00 50 02/22/19 20:00 99/85 02/22/19 20:00 98.7 143 17 99/85 (90) 02/22/19 19:45 106/60 02/22/19 19:45 139 16 104/77 (86) 02/22/19 19:30 141 16 104/77 (86) 93 02/22/19 19:30 104/77 02/22/19 19:15 104/77 02/22/19 19:00 111/72 02/22/19 19:00 139 16 111/72 (85) 02/22/19 18:50 148 16 50 02/22/19 18:30 138 16 106/82 (90) 02/22/19 18:00 98.4 141 15 103/84 (90) 100 02/22/19 18:00 103/81 02/22/19 17:30 136 16 103/81 (88) 02/22/19 17:02 138 16 50 02/22/19 17:00 133 16 112/72 (85) 02/22/19 16:30 134 16 96/68 (77) 02/22/19 16:00 Endotracheal Tube 02/22/19 16:00 111/91 02/22/19 16:00 97.5 129 15 111/91 (98) 02/22/19 15:30 129 16 103/77 (86) 02/22/19 15:27 134 02/22/19 15:15 132 16 94/77 (83) 02/22/19 15:08 127 18 50 02/22/19 15:08 50 02/22/19 15:00 138 16 102/79 (87) 100 02/22/19 15:00 102/79 02/22/19 14:50 138 101/78 02/22/19 14:49 138 16 102/79 (87) 02/22/19 14:49 101/78 02/22/19 14:30 101/78 02/22/19 14:30 143 13 108/85 (93) 91 02/22/19 14:00 142 14 109/79 (89) 02/22/19 14:00 99/80 02/22/19 13:30 97.3 138 9 101/84 (90) 02/22/19 13:03 142 16 50 02/22/19 13:00 137 18 108/79 (89) 02/22/19 13:00 101/84 02/22/19 12:30 142 17 105/90 (95) 02/22/19 12:00 139 16 51/26 (34) 02/22/19 12:00 51/26 02/22/19 11:59 139 02/22/19 11:30 137 20 98/78 (85) 98 02/22/19 11:17 100 02/22/19 11:17 149 16 100 02/22/19 11:17 Endotracheal Tube 02/22/19 11:00 140 14 103/84 (90) 92 02/22/19 11:00 97/81 02/22/19 10:58 97/81 02/22/19 10:30 142 22 97/68 (78) 90 02/22/19 10:00 98/69 02/22/19 10:00 141 21 112/64 (80) 93 02/22/19 09:30 142 21 110/91 (97) 100 02/22/19 09:00 141 21 88/71 (77) 02/22/19 09:00 105/83 02/22/19 08:55 130 23 Facial 40 02/22/19 08:30 137 18 86/66 (73) 02/22/19 08:00 96/78 02/22/19 08:00 143 22 96/71 (79) 02/22/19 08:00 50 02/22/19 08:00 Bi-pap 02/22/19 07:58 149 02/22/19 07:30 97.0 143 18 88/61 (70) 02/22/19 07:22 Bi-Pap 40 02/22/19 07:21 139 17 Facial 40 02/22/19 07:00 143 19 86/70 (75) 02/22/19 07:00 101/75 02/22/19 06:45 139 18 82/68 (73) 02/22/19 06:30 139 18 94/79 (84) 02/22/19 06:16 91/71 02/22/19 06:15 139 19 91/71 (78) 02/22/19 06:10 130 99/69 02/22/19 06:00 140 17 99/69 (79) 02/22/19 06:00 94/79 02/22/19 05:45 138 17 101/61 (74) 02/22/19 05:30 140 18 99/72 (81) 02/22/19 05:15 141 17 101/71 (81) 02/22/19 05:00 141 19 Facial 50 02/22/19 05:00 99/84 02/22/19 05:00 142 17 99/84 (89) 02/22/19 04:45 142 17 87/60 (69) 02/22/19 04:30 143 17 91/46 (61) 02/22/19 04:15 143 20 100/82 (88) 02/22/19 04:00 97.4 146 22 89/63 (72) 02/22/19 04:00 50 02/22/19 04:00 89/63 02/22/19 04:00 Bi-pap 02/22/19 04:00 140 02/22/19 03:45 145 18 93/61 (72) 02/22/19 03:30 147 20 107/73 (84) 02/22/19 03:15 146 15 107/73 (84) 02/22/19 03:04 140 19 Facial 50 02/22/19 03:00 141 18 97/81 (86) 02/22/19 03:00 97/81 02/22/19 02:45 147 17 105/83 (90) 02/22/19 02:30 148 18 111/53 (72) 02/22/19 02:15 147 17 106/61 (76) 02/22/19 02:00 91/77 02/22/19 02:00 144 16 91/77 (82) 02/22/19 01:45 140 18 100/67 (78) 02/22/19 01:36 93/75 02/22/19 01:30 146 16 93/75 (81) 02/22/19 01:15 148 18 02/22/19 01:15 139 21 Facial 50 02/22/19 01:00 99/72 02/22/19 01:00 149 18 99/72 (81) 02/22/19 00:45 146 15 109/77 (88) 02/22/19 00:30 144 17 94/79 (84) 02/22/19 00:15 149 17 108/77 (87) 02/22/19 00:00 Bi-pap 02/22/19 00:00 144 02/22/19 00:00 107/78 02/22/19 00:00 50 02/22/19 00:00 97.5 147 107/78 (88) 02/21/19 23:45 147 17 72/47 (55) 02/21/19 23:30 144 18 78/34 (49) 02/21/19 23:15 148 17 130/81 (97) 02/21/19 23:10 135 17 Facial 50 Intake and Output 02/21/19 02/22/19 19:00 07:00 Intake Total 1122.5 ml 2305.0 ml Output Total 120 ml 150 ml Balance 1002.5 ml 2155.0 ml Intake Oral 0 ml IV Total 1122.5 ml 2055.0 ml Blood Product 250 ml Output Urine Total 120 ml 150 ml # Bowel Movements 2 Laboratory Tests 02/21/19 23:55: Lactic Acid Level 3.70H 02/22/19 02:00: Lactic Acid Level 4.20H 02/22/19 04:00: White Blood Count 14.0H, Red Blood Count 2.86L, Hemoglobin 9.5L, Hematocrit 30.4L, Mean Corpuscular Volume 107H, Mean Corpuscular Hemoglobin 33.3H, Mean Corpuscular Hemoglobin Concent 31.3L, Red Cell Distribution Width 19.8H, Platelet Count 83L, Mean Platelet Volume 7.5, Neutrophils (%) (Auto) , Lymphocytes (%) (Auto) , Monocytes (%) (Auto) , Eosinophils (%) (Auto) , Basophils (%) (Auto) , Differential Total Cells Counted 100, Neutrophils % ( Manual) 91H, Lymphocytes % (Manual) 6L, Monocytes % (Manual) 3, Eosinophils % ( Manual) 0, Basophils % (Manual) 0, Band Neutrophils 0, Nucleated Red Blood Cells 1, Platelet Estimate DecreasedL, Platelet Morphology Normal, Anisocytosis 1+, Macrocytosis 1+, Blister Cells 1+, Acanthocytes 1+, Schistocytes , Sodium Level 135L, Potassium Level 4.3, Chloride Level 102, Carbon Dioxide Level 22, Anion Gap 11, Blood Urea Nitrogen 52H, Creatinine 2.2H, Estimat Glomerular Filtration Rate , Glucose Level 195H, Uric Acid 8.3H, Calcium Level 6.7L, Phosphorus Level 4.3, Magnesium Level 2.0, Total Bilirubin 2.6H, Direct Bilirubin 1.5H, Aspartate Amino Transf (AST/SGOT) 72H, Alanine Aminotransferase (ALT/SGPT) 39, Alkaline Phosphatase 97, Troponin I 0.191H, Total Protein 6.4, Albumin 2.4L, Globulin 4.0, Albumin/Globulin Ratio 0.6L, Alpha Fetoprotein [ Pending], Cortisol AM Sample 10.5, Hepatitis A IgM Antibody [Pending], Hepatitis B Surface Antigen [Pending], Hepatitis B Core IgM Antibody [Pending], Hepatitis C Antibody [Pending] 02/22/19 04:45: Urine Eosinophils None seen 02/22/19 04:50: Lactic Acid Level 4.70H 02/22/19 09:52: Arterial Blood pH 7.278L, Arterial Blood Partial Pressure CO2 28.6L, Arterial Blood Partial Pressure O2 87.1, Arterial Blood HCO3 13.1*L, Arterial Blood Oxygen Saturation 95.7, Arterial Blood Base Excess -12.4*L, Melchor Test Positive 02/22/19 13:35: Lactic Acid Level 5.80H, Arterial Blood pH 7.336L, Arterial Blood Partial Pressure CO2 25.5L, Arterial Blood Partial Pressure O2 447.8H, Arterial Blood HCO3 13.3*L, Arterial Blood Oxygen Saturation 99.7, Arterial Blood Base Excess - 11.1*L, Melchor Test Positive 02/22/19 20:16: Lactic Acid Level 4.60H 02/22/19 22:30: Lactic Acid Level [Pending] Height (Feet): 5 Height (Inches): 6.00 Weight (Pounds): 154 Objective WDWN NCAT Supple Coarse ronchi tachy abd soft ND NT, (+) GT obtunded César Saldana MD Feb 22, 2019 23:04
[2019-02-23] VITALS (61 sets, daily range): BP systolic 86–130; BP diastolic 59–94
--- NOTE | 2019-02-23 | NUR ---
NURSE NOTES: Pt's resting in bed, responsive to stimuli, in no acute distress. 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 Levophed doubled concentration at 15mcg/min, Luis Angel at 40mcg/ min. BP 113/84. Will continue to monitor.
--- NOTE | 2019-02-23 02:00 | NUR ---
NURSE NOTES: Pt's resting in bed, in no acute distress at this time. Still on pressors, Levophed at 15mcg/min, and Luis Angel at 40mcg/min.
--- NOTE | 2019-02-23 04:00 | NUR ---
NURSE NOTES: Pt's in bed, in no acute distress, eyes closed however able to be aroused by touch. Will continue to monitor.
[2019-02-23 05:47] LABS: HEMATOCRIT 28.5 % (37.0-47.0); HEMOGLOBIN 9.2 G/DL (12.0-16.0); MEAN CORPUSCULAR VOLUME 101 FL (80-99); PLATELET COUNT 61 K/UL (150-450); RED BLOOD COUNT 2.81 M/UL (4.20-5.40); RED CELL DISTRIBUTION WIDTH 18.8 % (11.6-14.8); WHITE BLOOD COUNT 12.1 K/UL (4.8-10.8)
[2019-02-23] MEDS: Hydrocortisone 100mg Inj IV SCH ×3 (05:59→22:40)
--- NOTE | 2019-02-23 06:00 | NUR ---
NURSE NOTES: BP 103/59, decreased Luis Angel to 20mcg/min. Levophed still at 15mcg/min. Will continue to monitor.
[2019-02-23 06:17] LABS: AMMONIA 25 umol/L (11-32)
[2019-02-23 06:27] LABS: ALANINE AMINOTRANSFERASE 41 U/L (12-78); ALBUMIN/GLOBULIN RATIO 0.6 (1.0-2.7); ALKALINE PHOSPHATASE 83 U/L (46-116); ANION GAP 13 mmol/L (5-15); ASPARTATE AMINO TRANSFERASE 85 U/L (15-37); BILIRUBIN,TOTAL 2.8 MG/DL (0.2-1.0); BLOOD UREA NITROGEN 49 mg/dL (7-18); CALCIUM 7.6 MG/DL (8.5-10.1); CARBON DIOXIDE 20 MMOL/L (21-32); CHLORIDE 103 MMOL/L (98-107); PHOSPHORUS 3.1 MG/DL (2.5-4.9); POTASSIUM 3.6 MMOL/L (3.5-5.1); SODIUM 136 MMOL/L (136-145)
[2019-02-23 06:28] LABS: BILIRUBIN,DIRECT 1.7 MG/DL (0.0-0.3)
--- NOTE | 2019-02-23 07:03 | NUR ---
RESPIRATORY NOTE: Received patient on AC RR:16, Vt:550, FiO2: 50%, Peep of 5. Alarms are on and audible. No signs of respiratory distress noted. Will continue to monitor throughout the day.
--- NOTE | 2019-02-23 07:15 | NUR ---
HAND-OFF: Report given to ANDREINA Paige.
--- NOTE | 2019-02-23 07:16 | NUR ---
NURSE NOTES: Received patient from ANDREINA [place]. Patient sleeping at this time. Will further assess neurological status when patient wakes up. It was reported that patient is able to mouth words and tracks with eyes. Patient orally intubated at this time with ET tube 7.0cm and 22cm at the lip line. Patient ventilator setting AC 16, tidal volume 550, FiO2 50%, and PEEP 5. patient tolerating setting with RR 16 and no sign of acute distress. Patient NPO at this time. Patient has gastrostomy tube that is patent, asymptomatic, and clamped at this time. Patient has rectal tube due to diarrhea secondary to lactulose medication. Patient has martinez for urine retention that is patent and draining yellow urine at 50mL/hr. Patient has edema in bilateral upper/lower extremities and abdomen. Patient upper extremities weeping serous fluid at this time. Patient has right interal jugular triple lumen catheter and left upper arm PICC line. Both patent and asymptomatic with intact dressings at this time. Right internal jugular running levophed at 15mcg/min and phenylephrine at 20mcg/min at this time. Patient BP stable at 103/56. Will continue to monitor and titrate drips per hospital protocol as needed. Left upper arm PICC running normal saline at 50mL/hr at this time. Patient's platelets remain low this morning. MD aware. NO VTE pharmacological prophylaxis ordered at this time. SCDs not in place due to gross edema. Patient has left heel DTI and perineal redness. Will continue to monitor. Patient repositioned and oral care performed at this time.
--- NOTE | 2019-02-23 08:00 | NUR ---
NURSE NOTES: Gag reflex present. Patient does not respond to voice or light/deep pain stimuli on chest, finger, toe, inner arm, and inner thigh. Patient wrinkles nose/eyes when oral cleaning done and gag reflex noted when suctioning endotracheal tube. Patient does not open eyes to any stimuli. No movement noted in upper/lower extremities.
--- NOTE | 2019-02-23 08:56 | Critical Care Progress Note ---
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, chronic atrial fibrillation, hypertension, diastolic congestive heart failure, septic shock, hypothermia, hypotension, hypoxemia severe PCM, thrombocytopenia, anemia, leukocytosis, acute renal failure tachycardia, no on Vent support PLAN care noted vent management monitor acid base support as able full code pressors as needed IV antibiotics respiratory care SNF meds supportive care suction as needed monitor for aspiration oxygen therapy as needed try to wean as able close follow up of acid base for now prognosis guarded and currently patient is critical medications/laboratory data/nursing notes/ICU care reviewed in detail note reviewed and edited care discussed with RN and RT ICU time spent 40 minutes Critical Care - Subjective Interval Events: care noted now intubated failed BIPAP oxygen needs reviewed ICU care noted ROS Limited/Unobtainable: Yes Condition: critical EKG Rhythm: Sinus Rhythm I&O: Intake and Output 02/22/19 02/23/19 18:59 06:59 Intake Total 2190.61 ml 1193.69 ml Output Total 185 ml 515 ml Balance 2005.61 ml 678.69 ml Intake Oral 0 ml 0 ml IV Total 2160.61 ml 1163.69 ml Other 30 ml 30 ml Output Urine Total 185 ml 515 ml # Bowel Movements 1 1 Critical Care - Objective CXR: CHF ET-Tube: 7.0 ET Position: 22 Last 24 Hour Vital Signs Date Time Temp Pulse Resp B/P (MAP) Pulse Ox O2 Delivery O2 Flow Rate FiO2 02/23/19 07:30 140 16 97/77 (84) 92 02/23/19 07:01 137 16 50 02/23/19 07:00 97/77 02/23/19 07:00 146 16 104/80 (88) 02/23/19 06:45 138 16 98/71 (80) 02/23/19 06:30 142 16 90/63 (72) 02/23/19 06:15 148 16 88/61 (70) 02/23/19 06:00 98.3 150 16 107/94 (98) 02/23/19 06:00 107/94 02/23/19 05:45 137 16 98/71 (80) 02/23/19 05:30 137 16 121/65 (83) 02/23/19 05:30 131 16 50 02/23/19 05:15 150 16 112/79 (90) 02/23/19 05:00 112/79 02/23/19 05:00 140 16 113/74 (87) 02/23/19 04:45 144 16 93/78 (83) 02/23/19 04:30 153 16 115/73 (87) 02/23/19 04:00 50 02/23/19 04:00 103/59 02/23/19 04:00 140 02/23/19 04:00 Endotracheal Tube 02/23/19 04:00 140 16 111/75 (87) 02/23/19 03:30 142 16 109/77 (88) 02/23/19 03:00 98.5 143 16 111/87 (95) 02/23/19 03:00 102/78 02/23/19 02:56 120 17 50 02/23/19 02:30 135 16 114/80 (91) 02/23/19 02:00 146 16 110/62 (78) 02/23/19 02:00 103/89 02/23/19 01:30 145 16 94/72 (79) 02/23/19 01:27 109 17 50 02/23/19 01:00 99/85 02/23/19 01:00 144 16 91/76 (81) 02/23/19 00:30 137 16 106/73 (84) 02/23/19 00:00 135 16 115/84 (94) 02/23/19 00:00 113/84 02/23/19 00:00 Endotracheal Tube 02/22/19 23:30 132 16 99/77 (84) 02/22/19 23:00 112 16 50 02/22/19 23:00 108/81 02/22/19 23:00 134 16 97/81 (86) 02/22/19 22:30 136 16 101/66 (78) 02/22/19 22:15 130 16 98/74 (82) 02/22/19 22:00 96/79 02/22/19 22:00 137 16 89/67 (74) 02/22/19 21:30 131 16 99/75 (83) 02/22/19 21:15 134 16 93/62 (72) 02/22/19 21:05 121 16 50 02/22/19 21:00 111/76 02/22/19 21:00 136 15 117/78 (91) 93 02/22/19 20:45 139 16 105/72 (83) 02/22/19 20:45 117/78 02/22/19 20:30 105/72 02/22/19 20:30 138 16 105/78 (87) 02/22/19 20:15 140 18 110/88 (95) 02/22/19 20:15 105/78 02/22/19 20:00 Endotracheal Tube 02/22/19 20:00 50 02/22/19 20:00 99/85 02/22/19 20:00 98.7 143 17 99/85 (90) 02/22/19 20:00 131 02/22/19 19:45 106/60 02/22/19 19:45 139 16 104/77 (86) 02/22/19 19:30 141 16 104/77 (86) 93 02/22/19 19:30 104/77 02/22/19 19:15 104/77 02/22/19 19:00 111/72 02/22/19 19:00 139 16 111/72 (85) 02/22/19 18:50 148 16 50 02/22/19 18:30 138 16 106/82 (90) 02/22/19 18:00 98.4 141 15 103/84 (90) 100 02/22/19 18:00 103/81 02/22/19 17:30 136 16 103/81 (88) 02/22/19 17:02 138 16 50 02/22/19 17:00 133 16 112/72 (85) 02/22/19 16:30 134 16 96/68 (77) 02/22/19 16:00 Endotracheal Tube 02/22/19 16:00 111/91 02/22/19 16:00 97.5 129 15 111/91 (98) 02/22/19 15:30 129 16 103/77 (86) 02/22/19 15:27 134 02/22/19 15:15 132 16 94/77 (83) 02/22/19 15:08 127 18 50 02/22/19 15:08 50 02/22/19 15:00 138 16 102/79 (87) 100 02/22/19 15:00 102/79 02/22/19 14:50 138 101/78 02/22/19 14:49 138 16 102/79 (87) 02/22/19 14:49 101/78 02/22/19 14:30 101/78 02/22/19 14:30 143 13 108/85 (93) 91 02/22/19 14:00 142 14 109/79 (89) 02/22/19 14:00 99/80 02/22/19 13:30 97.3 138 9 101/84 (90) 02/22/19 13:03 142 16 50 02/22/19 13:00 137 18 108/79 (89) 02/22/19 13:00 101/84 02/22/19 12:30 142 17 105/90 (95) 02/22/19 12:00 139 16 51/26 (34) 02/22/19 12:00 51/26 02/22/19 11:59 139 02/22/19 11:30 137 20 98/78 (85) 98 02/22/19 11:17 100 02/22/19 11:17 149 16 100 02/22/19 11:17 Endotracheal Tube 02/22/19 11:00 140 14 103/84 (90) 92 02/22/19 11:00 97/81 02/22/19 10:58 97/81 02/22/19 10:30 142 22 97/68 (78) 90 02/22/19 10:00 98/69 02/22/19 10:00 141 21 112/64 (80) 93 02/22/19 09:30 142 21 110/91 (97) 100 02/22/19 09:00 141 21 88/71 (77) 02/22/19 09:00 105/83 02/22/19 08:55 130 23 Facial 40 Labs: Labs Test 02/20/19 11:54 02/20/19 12:15 02/20/19 14:10 02/20/19 17:59 Lactic Acid Level 6.40 mmol/L (0.4-2.0) 5.20 mmol/L (0.66-2.22) 5.10 mmol/L (0.4-2.0) Random Vancomycin Level 14.9 ug/mL Urine Random Sodium < 20 mmol/L (20-110) Test 02/20/19 21:15 02/21/19 04:20 02/21/19 06:00 02/21/19 07:25 Lactic Acid Level 5.00 mmol/L (0.66-2.22) 3.50 mmol/L (0.4-2.0) White Blood Count 12.8 K/UL (4.8-10.8) Red Blood Count 2.28 M/UL (4.20-5.40) Hemoglobin 7.6 G/DL (12.0-16.0) Hematocrit 25.0 % (37.0-47.0) Mean Corpuscular Volume 109 FL (80-99) Mean Corpuscular Hemoglobin 33.4 PG (27.0-31.0) Mean Corpuscular Hemoglobin Concent 30.6 G/DL (32.0-36.0) Red Cell Distribution Width 17.2 % (11.6-14.8) Platelet Count 93 K/UL (150-450) Mean Platelet Volume 6.7 FL (6.5-10.1) Neutrophils (%) (Auto) % (45.0-75.0) Lymphocytes (%) (Auto) % (20.0-45.0) Monocytes (%) (Auto) % (1.0-10.0) Eosinophils (%) (Auto) % (0.0-3.0) Basophils (%) (Auto) % (0.0-2.0) Differential Total Cells Counted 100 Neutrophils % (Manual) 85 % (45-75) Lymphocytes % (Manual) 8 % (20-45) Monocytes % (Manual) 7 % (1-10) Eosinophils % (Manual) 0 % (0-3) Basophils % (Manual) 0 % (0-2) Band Neutrophils 0 % (0-8) Platelet Estimate Decreased Platelet Morphology Normal Hypochromasia 3+ Anisocytosis 1+ Macrocytosis 1+ Sodium Level 131 MMOL/L (136-145) Potassium Level 4.5 MMOL/L (3.5-5.1) Chloride Level 99 MMOL/L (98-107) Carbon Dioxide Level 23 MMOL/L (21-32) Anion Gap 9 mmol/L (5-15) Blood Urea Nitrogen 57 mg/dL (7-18) Creatinine 2.2 MG/DL (0.55-1.30) Estimat Glomerular Filtration Rate mL/min (>60) Glucose Level 194 MG/DL (74-106) Uric Acid 8.6 MG/DL (2.6-7.2) Calcium Level 6.5 MG/DL (8.5-10.1) Phosphorus Level 4.2 MG/DL (2.5-4.9) Magnesium Level 2.2 MG/DL (1.8-2.4) Iron Level 21 ug/dL (50-175) Total Iron Binding Capacity 150 ug/dL (250-450) Percent Iron Saturation 14 % (15-50) Unsaturated Iron Binding 129 ug/dL (112-346) Ferritin 158 NG/ML (8-388) Total Bilirubin 2.3 MG/DL (0.2-1.0) Direct Bilirubin 1.5 MG/DL (0.0-0.3) Gamma Glutamyl Transpeptidase 37 U/L (5-85) Aspartate Amino Transf (AST/SGOT) 64 U/L (15-37) Alanine Aminotransferase (ALT/SGPT) 35 U/L (12-78) Alkaline Phosphatase 88 U/L (46-116) Ammonia 119 umol/L (11-32) Total Creatine Kinase 216 U/L (26-308) Troponin I 0.206 ng/mL (0.000-0.056) C-Reactive Protein, Quantitative 7.3 mg/dL (0.00-0.90) Pro-B-Type Natriuretic Peptide 86842 pg/mL (0-125) Total Protein 6.0 G/DL (6.4-8.2) Albumin 2.5 G/DL (3.4-5.0) Globulin 3.5 g/dL Albumin/Globulin Ratio 0.7 (1.0-2.7) Triglycerides Level 27 MG/DL (30-150) Cholesterol Level < 50 MG/DL (< 200) LDL Cholesterol 29 mg/dL (<100) HDL Cholesterol 9 MG/DL (40-60) Cholesterol/HDL Ratio 5.6 (3.3-4.4) Vitamin B12 Level 1915 PG/ML (193-986) Folate 38.7 NG/ML (8.6-58.9) Thyroid Stimulating Hormone (TSH) 3.456 uiU/mL (0.358-3.740) Urine Eosinophils Occasional (NONE SEEN) Test 02/21/19 09:10 02/21/19 10:05 02/21/19 15:55 02/21/19 19:56 Arterial Blood pH 7.284 (7.350-7.450) 7.335 (7.350-7.450) Arterial Blood Partial Pressure CO2 43.4 mmHg (35.0-45.0) 40.8 mmHg (35.0-45.0) Arterial Blood Partial Pressure O2 72.9 mmHg (75.0-100.0) 121.9 mmHg (75.0-100.0) Arterial Blood HCO3 20.1 mmol/L (22.0-26.0) 21.3 mmol/L (22.0-26.0) Arterial Blood Oxygen Saturation 92.0 % (95-100) 98.1 % (95-100) Arterial Blood Base Excess -6.1 (-2-2) -4.2 (-2-2) Melchor Test Positive Positive Lactic Acid Level 3.40 mmol/L (0.66-2.22) 2.70 mmol/L (0.4-2.0) Test 02/21/19 21:40 02/21/19 23:55 02/22/19 02:00 02/22/19 04:00 Lactic Acid Level 2.20 mmol/L (0.4-2.0) 3.70 mmol/L (0.66-2.22) 4.20 mmol/L (0.4-2.0) White Blood Count 14.0 K/UL (4.8-10.8) Red Blood Count 2.86 M/UL (4.20-5.40) Hemoglobin 9.5 G/DL (12.0-16.0) Hematocrit 30.4 % (37.0-47.0) Mean Corpuscular Volume 107 FL (80-99) Mean Corpuscular Hemoglobin 33.3 PG (27.0-31.0) Mean Corpuscular Hemoglobin Concent 31.3 G/DL (32.0-36.0) Red Cell Distribution Width 19.8 % (11.6-14.8) Platelet Count 83 K/UL (150-450) Mean Platelet Volume 7.5 FL (6.5-10.1) Neutrophils (%) (Auto) % (45.0-75.0) Lymphocytes (%) (Auto) % (20.0-45.0) Monocytes (%) (Auto) % (1.0-10.0) Eosinophils (%) (Auto) % (0.0-3.0) Basophils (%) (Auto) % (0.0-2.0) Differential Total Cells Counted 100 Neutrophils % (Manual) 91 % (45-75) Lymphocytes % (Manual) 6 % (20-45) Monocytes % (Manual) 3 % (1-10) Eosinophils % (Manual) 0 % (0-3) Basophils % (Manual) 0 % (0-2) Band Neutrophils 0 % (0-8) Nucleated Red Blood Cells 1 /100 WBC Platelet Estimate Decreased Platelet Morphology Normal Anisocytosis 1+ Macrocytosis 1+ Blister Cells 1+ Acanthocytes 1+ Schistocytes Sodium Level 135 MMOL/L (136-145) Potassium Level 4.3 MMOL/L (3.5-5.1) Chloride Level 102 MMOL/L (98-107) Carbon Dioxide Level 22 MMOL/L (21-32) Anion Gap 11 mmol/L (5-15) Blood Urea Nitrogen 52 mg/dL (7-18) Creatinine 2.2 MG/DL (0.55-1.30) Estimat Glomerular Filtration Rate mL/min (>60) Glucose Level 195 MG/DL (74-106) Uric Acid 8.3 MG/DL (2.6-7.2) Calcium Level 6.7 MG/DL (8.5-10.1) Phosphorus Level 4.3 MG/DL (2.5-4.9) Magnesium Level 2.0 MG/DL (1.8-2.4) Total Bilirubin 2.6 MG/DL (0.2-1.0) Direct Bilirubin 1.5 MG/DL (0.0-0.3) Aspartate Amino Transf (AST/SGOT) 72 U/L (15-37) Alanine Aminotransferase (ALT/SGPT) 39 U/L (12-78) Alkaline Phosphatase 97 U/L (46-116) Troponin I 0.191 ng/mL (0.000-0.056) Total Protein 6.4 G/DL (6.4-8.2) Albumin 2.4 G/DL (3.4-5.0) Globulin 4.0 g/dL Albumin/Globulin Ratio 0.6 (1.0-2.7) Cortisol AM Sample 10.5 UG/DL Test 02/22/19 04:45 02/22/19 04:50 02/22/19 09:52 02/22/19 13:35 Urine Eosinophils None seen (NONE SEEN) Lactic Acid Level 4.70 mmol/L (0.66-2.22) 5.80 mmol/L (0.4-2.0) Arterial Blood pH 7.278 (7.350-7.450) 7.336 (7.350-7.450) Arterial Blood Partial Pressure CO2 28.6 mmHg (35.0-45.0) 25.5 mmHg (35.0-45.0) Arterial Blood Partial Pressure O2 87.1 mmHg (75.0-100.0) 447.8 mmHg (75.0-100.0) Arterial Blood HCO3 13.1 mmol/L (22.0-26.0) 13.3 mmol/L (22.0-26.0) Arterial Blood Oxygen Saturation 95.7 % (95-100) 99.7 % (95-100) Arterial Blood Base Excess -12.4 (-2-2) -11.1 (-2-2) Melchor Test Positive Positive Test 02/22/19 20:16 02/22/19 22:30 02/23/19 04:30 02/23/19 04:50 Lactic Acid Level 4.60 mmol/L (0.4-2.0) 3.40 mmol/L (0.66-2.22) Urine Eosinophils None seen (NONE SEEN) White Blood Count 12.1 K/UL (4.8-10.8) Red Blood Count 2.81 M/UL (4.20-5.40) Hemoglobin 9.2 G/DL (12.0-16.0) Hematocrit 28.5 % (37.0-47.0) Mean Corpuscular Volume 101 FL (80-99) Mean Corpuscular Hemoglobin 32.8 PG (27.0-31.0) Mean Corpuscular Hemoglobin Concent 32.4 G/DL (32.0-36.0) Red Cell Distribution Width 18.8 % (11.6-14.8) Platelet Count 61 K/UL (150-450) Mean Platelet Volume 7.3 FL (6.5-10.1) Neutrophils (%) (Auto) % (45.0-75.0) Lymphocytes (%) (Auto) % (20.0-45.0) Monocytes (%) (Auto) % (1.0-10.0) Eosinophils (%) (Auto) % (0.0-3.0) Basophils (%) (Auto) % (0.0-2.0) Differential Total Cells Counted 100 Neutrophils % (Manual) 93 % (45-75) Lymphocytes % (Manual) 1 % (20-45) Monocytes % (Manual) 6 % (1-10) Eosinophils % (Manual) 0 % (0-3) Basophils % (Manual) 0 % (0-2) Band Neutrophils 0 % (0-8) Platelet Estimate Decreased Platelet Morphology Normal Anisocytosis 1+ Macrocytosis 1+ Ovalocytes 2+ Acanthocytes 1+ Sodium Level 136 MMOL/L (136-145) Potassium Level 3.6 MMOL/L (3.5-5.1) Chloride Level 103 MMOL/L (98-107) Carbon Dioxide Level 20 MMOL/L (21-32) Anion Gap 13 mmol/L (5-15) Blood Urea Nitrogen 49 mg/dL (7-18) Creatinine 2.0 MG/DL (0.55-1.30) Estimat Glomerular Filtration Rate mL/min (>60) Glucose Level 163 MG/DL (74-106) Calcium Level 7.6 MG/DL (8.5-10.1) Phosphorus Level 3.1 MG/DL (2.5-4.9) Magnesium Level 1.8 MG/DL (1.8-2.4) Total Bilirubin 2.8 MG/DL (0.2-1.0) Direct Bilirubin 1.7 MG/DL (0.0-0.3) Aspartate Amino Transf (AST/SGOT) 85 U/L (15-37) Alanine Aminotransferase (ALT/SGPT) 41 U/L (12-78) Alkaline Phosphatase 83 U/L (46-116) Ammonia 25 umol/L (11-32) C-Reactive Protein, Quantitative 5.2 mg/dL (0.00-0.90) Pro-B-Type Natriuretic Peptide > 52430 pg/mL (0-125) Total Protein 5.5 G/DL (6.4-8.2) Albumin 2.0 G/DL (3.4-5.0) Globulin 3.5 g/dL Albumin/Globulin Ratio 0.6 (1.0-2.7) Test 02/23/19 08:10 Objective: PHYSICAL EXAMINATION: GENERAL: The patient is a chronically ill-appearing female, on VENT NECK: Supple. There is a central line in the right subclavian area. HEART: tachy RR.without MRG LUNGS: reduced breath sounds with scattered rhonchi; no wheeze ABDOMEN: Soft, nontender, nondistended. no HSM EXTREMITIES: No clubbing, cyanosis, or edema. NEURO: response to pain skin noted Accucheck: 72 Jan Anderson MD Feb 23, 2019 08:56
--- NOTE | 2019-02-23 08:59 | Infectious Diseases Prog Note ---
Assessment/Plan Assessment/Plan A 1. pneumonia 2. fungal UTI 3.Acute renal failure 4. septic shock 5. CHF, systolic 6. dementia 7. Hypoxic respiratory failure 8. 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 Portal hypertension P 1. continue Zosyn & fluconazole 2. will follow up cultures 3. Poor prognosis Subjective ROS Limited/Unobtainable: Yes Respiratory: Reports: other - intubated yesterday Cardiovascular: Reports: other - on pressors Allergies: Coded Allergies: No Known Allergies (Unverified , 02/19/19) Objective Vital Signs Last 24 Hour Vital Signs Date Time Temp Pulse Resp B/P (MAP) Pulse Ox O2 Delivery O2 Flow Rate FiO2 02/23/19 07:30 140 16 97/77 (84) 92 02/23/19 07:01 137 16 50 02/23/19 07:00 97/77 02/23/19 07:00 146 16 104/80 (88) 02/23/19 06:45 138 16 98/71 (80) 02/23/19 06:30 142 16 90/63 (72) 02/23/19 06:15 148 16 88/61 (70) 02/23/19 06:00 98.3 150 16 107/94 (98) 02/23/19 06:00 107/94 02/23/19 05:45 137 16 98/71 (80) 02/23/19 05:30 137 16 121/65 (83) 02/23/19 05:30 131 16 50 02/23/19 05:15 150 16 112/79 (90) 02/23/19 05:00 112/79 02/23/19 05:00 140 16 113/74 (87) 02/23/19 04:45 144 16 93/78 (83) 02/23/19 04:30 153 16 115/73 (87) 02/23/19 04:00 50 02/23/19 04:00 103/59 02/23/19 04:00 140 02/23/19 04:00 Endotracheal Tube 02/23/19 04:00 140 16 111/75 (87) 02/23/19 03:30 142 16 109/77 (88) 02/23/19 03:00 98.5 143 16 111/87 (95) 02/23/19 03:00 102/78 02/23/19 02:56 120 17 50 02/23/19 02:30 135 16 114/80 (91) 02/23/19 02:00 146 16 110/62 (78) 02/23/19 02:00 103/89 02/23/19 01:30 145 16 94/72 (79) 02/23/19 01:27 109 17 50 02/23/19 01:00 99/85 02/23/19 01:00 144 16 91/76 (81) 02/23/19 00:30 137 16 106/73 (84) 02/23/19 00:00 135 16 115/84 (94) 02/23/19 00:00 113/84 02/23/19 00:00 Endotracheal Tube 02/22/19 23:30 132 16 99/77 (84) 02/22/19 23:00 112 16 50 02/22/19 23:00 108/81 02/22/19 23:00 134 16 97/81 (86) 02/22/19 22:30 136 16 101/66 (78) 02/22/19 22:15 130 16 98/74 (82) 02/22/19 22:00 96/79 02/22/19 22:00 137 16 89/67 (74) 02/22/19 21:30 131 16 99/75 (83) 02/22/19 21:15 134 16 93/62 (72) 02/22/19 21:05 121 16 50 02/22/19 21:00 111/76 02/22/19 21:00 136 15 117/78 (91) 93 02/22/19 20:45 139 16 105/72 (83) 02/22/19 20:45 117/78 02/22/19 20:30 105/72 02/22/19 20:30 138 16 105/78 (87) 02/22/19 20:15 140 18 110/88 (95) 02/22/19 20:15 105/78 02/22/19 20:00 Endotracheal Tube 02/22/19 20:00 50 02/22/19 20:00 99/85 02/22/19 20:00 98.7 143 17 99/85 (90) 02/22/19 20:00 131 02/22/19 19:45 106/60 02/22/19 19:45 139 16 104/77 (86) 02/22/19 19:30 141 16 104/77 (86) 93 02/22/19 19:30 104/77 02/22/19 19:15 104/77 02/22/19 19:00 111/72 02/22/19 19:00 139 16 111/72 (85) 02/22/19 18:50 148 16 50 02/22/19 18:30 138 16 106/82 (90) 02/22/19 18:00 98.4 141 15 103/84 (90) 100 02/22/19 18:00 103/81 02/22/19 17:30 136 16 103/81 (88) 02/22/19 17:02 138 16 50 02/22/19 17:00 133 16 112/72 (85) 02/22/19 16:30 134 16 96/68 (77) 02/22/19 16:00 Endotracheal Tube 02/22/19 16:00 111/91 02/22/19 16:00 97.5 129 15 111/91 (98) 02/22/19 15:30 129 16 103/77 (86) 02/22/19 15:27 134 02/22/19 15:15 132 16 94/77 (83) 02/22/19 15:08 127 18 50 02/22/19 15:08 50 02/22/19 15:00 138 16 102/79 (87) 100 02/22/19 15:00 102/79 02/22/19 14:50 138 101/78 02/22/19 14:49 138 16 102/79 (87) 02/22/19 14:49 101/78 02/22/19 14:30 101/78 02/22/19 14:30 143 13 108/85 (93) 91 02/22/19 14:00 142 14 109/79 (89) 02/22/19 14:00 99/80 02/22/19 13:30 97.3 138 9 101/84 (90) 02/22/19 13:03 142 16 50 02/22/19 13:00 137 18 108/79 (89) 02/22/19 13:00 101/84 02/22/19 12:30 142 17 105/90 (95) 02/22/19 12:00 139 16 51/26 (34) 02/22/19 12:00 51/26 02/22/19 11:59 139 02/22/19 11:30 137 20 98/78 (85) 98 02/22/19 11:17 100 02/22/19 11:17 149 16 100 02/22/19 11:17 Endotracheal Tube 02/22/19 11:00 140 14 103/84 (90) 92 02/22/19 11:00 97/81 02/22/19 10:58 97/81 02/22/19 10:30 142 22 97/68 (78) 90 02/22/19 10:00 98/69 02/22/19 10:00 141 21 112/64 (80) 93 02/22/19 09:30 142 21 110/91 (97) 100 02/22/19 09:00 141 21 88/71 (77) 02/22/19 09:00 105/83 Height (Feet): 5 Height (Inches): 6.00 Weight (Pounds): 154 HEENT: other - orally intubated Respiratory/Chest: lungs clear, other - on ventilator Cardiovascular: tachycardia, other - RIJ central line, left arm PICC line Abdomen: soft, non tender, distended Extremities: other - edema Neurologic/Psychiatric: unresponsiveness Laboratory Tests Test 02/22/19 09:52 02/22/19 13:35 02/22/19 20:16 02/22/19 22:30 Arterial Blood pH 7.278 (7.350-7.450) 7.336 (7.350-7.450) Arterial Blood Partial Pressure CO2 28.6 mmHg (35.0-45.0) L 25.5 mmHg (35.0-45.0) L Arterial Blood Partial Pressure O2 87.1 mmHg (75.0-100.0) 447.8 mmHg (75.0-100.0) H Arterial Blood HCO3 13.1 mmol/L (22.0-26.0) *L 13.3 mmol/L (22.0-26.0) *L Arterial Blood Oxygen Saturation 95.7 % (95-100) 99.7 % (95-100) Arterial Blood Base Excess -12.4 (-2-2) *L -11.1 (-2-2) *L Melchor Test Positive Positive Lactic Acid Level 5.80 mmol/L (0.4-2.0) H 4.60 mmol/L (0.4-2.0) H 3.40 mmol/L (0.66-2.22) H Test 02/23/19 04:30 02/23/19 04:50 02/23/19 08:10 Urine Eosinophils None seen (NONE SEEN) White Blood Count 12.1 K/UL (4.8-10.8) H Red Blood Count 2.81 M/UL (4.20-5.40) L Hemoglobin 9.2 G/DL (12.0-16.0) L Hematocrit 28.5 % (37.0-47.0) L Mean Corpuscular Volume 101 FL (80-99) H Mean Corpuscular Hemoglobin 32.8 PG (27.0-31.0) H Mean Corpuscular Hemoglobin Concent 32.4 G/DL (32.0-36.0) Red Cell Distribution Width 18.8 % (11.6-14.8) H Platelet Count 61 K/UL (150-450) L Mean Platelet Volume 7.3 FL (6.5-10.1) Neutrophils (%) (Auto) % (45.0-75.0) Lymphocytes (%) (Auto) % (20.0-45.0) Monocytes (%) (Auto) % (1.0-10.0) Eosinophils (%) (Auto) % (0.0-3.0) Basophils (%) (Auto) % (0.0-2.0) Differential Total Cells Counted 100 Neutrophils % (Manual) 93 % (45-75) H Lymphocytes % (Manual) 1 % (20-45) L Monocytes % (Manual) 6 % (1-10) Eosinophils % (Manual) 0 % (0-3) Basophils % (Manual) 0 % (0-2) Band Neutrophils 0 % (0-8) Platelet Estimate Decreased L Platelet Morphology Normal Anisocytosis 1+ Macrocytosis 1+ Ovalocytes 2+ Acanthocytes 1+ Sodium Level 136 MMOL/L (136-145) Potassium Level 3.6 MMOL/L (3.5-5.1) Chloride Level 103 MMOL/L (98-107) Carbon Dioxide Level 20 MMOL/L (21-32) L Anion Gap 13 mmol/L (5-15) Blood Urea Nitrogen 49 mg/dL (7-18) H Creatinine 2.0 MG/DL (0.55-1.30) H Estimat Glomerular Filtration Rate mL/min (>60) Glucose Level 163 MG/DL (74-106) H Calcium Level 7.6 MG/DL (8.5-10.1) L Phosphorus Level 3.1 MG/DL (2.5-4.9) Magnesium Level 1.8 MG/DL (1.8-2.4) Total Bilirubin 2.8 MG/DL (0.2-1.0) H Direct Bilirubin 1.7 MG/DL (0.0-0.3) H Aspartate Amino Transf (AST/SGOT) 85 U/L (15-37) H Alanine Aminotransferase (ALT/SGPT) 41 U/L (12-78) Alkaline Phosphatase 83 U/L (46-116) Ammonia 25 umol/L (11-32) C-Reactive Protein, Quantitative 5.2 mg/dL (0.00-0.90) H Pro-B-Type Natriuretic Peptide > 24284 pg/mL (0-125) H Total Protein 5.5 G/DL (6.4-8.2) L Albumin 2.0 G/DL (3.4-5.0) L Globulin 3.5 g/dL Albumin/Globulin Ratio 0.6 (1.0-2.7) L Lactic Acid Level Pending Current Medications Medications (Trade) Dose Ordered Sig/Pam Route PRN Reason Start Time Stop Time Status Last Admin Dose Admin Acetaminophen (Tylenol) 650 mg Q4H PRN ORAL Mild Pain/Temp > 100.5 02/19/19 17:15 03/21/19 17:14 Chlorhexidine Gluconate (Dayna-Hex 2%) 1 applic DAILY@1999 TOPIC 02/20/19 20:00 03/22/19 19:59 02/22/19 20:25 Fluconazole (Diflucan) 100 mg DAILY ORAL 02/21/19 10:39 02/28/19 10:38 02/22/19 09:39 Hydrocortisone (Solu-CORTEF) 100 mg EVERY 8 HOURS IV 02/22/19 09:45 02/23/19 22:01 02/23/19 05:59 Lactulose (Cephulac) 20 gm TWICE A DAY ORAL 02/21/19 22:15 03/23/19 22:14 02/22/19 17:59 Norepinephrine Bitartrate 16 mg/ Dextrose 500 ml @ 0 mls/hr Q24H IV 02/22/19 12:00 03/24/19 11:59 02/22/19 14:49 Pantoprazole (Protonix) 40 mg Q12HR IVP 02/20/19 21:00 03/21/19 17:59 02/22/19 20:25 Phenylephrine HCl 100 mg/Sodium Chloride 250 ml @ 0 mls/hr Q24H IV 02/19/19 20:15 03/21/19 20:14 02/22/19 14:50 Piperacillin Sod/ Tazobactam Sod 3.375 gm/Sodium Chloride 110 ml @ 27.5 mls/hr Q12HR IVPB 02/19/19 21:00 02/26/19 20:59 02/22/19 20:25 Sodium Chloride 1,000 ml @ 50 mls/hr Q20H IV 02/21/19 11:14 03/23/19 11:13 02/23/19 02:13 Sodium Citrate (Bicitra) 30 ml EVERY 12 HOURS GT 02/21/19 21:00 03/22/19 11:59 02/22/19 20:25 Neville Cunningham MD Feb 23, 2019 08:59
[2019-02-23] MEDS: Phenylephrine 100 MG in NS 240 ML IV SCH (09:11)
[2019-02-23] MEDS: Sodium Citrate 30ml GT SCH ×2 (09:12→20:56)
[2019-02-23] MEDS: Norepinephrine Bitartrate 16 MG in D5W 500ml 484 ML IV SCH (09:12)
[2019-02-23] MEDS: Piperacillin/Tazobactam 3.375 GM in NS 110 ML IVPB SCH ×2 (09:12→20:56)
[2019-02-23] MEDS: Pantoprazole Inj IVP SCH ×2 (09:12→20:56)
[2019-02-23] MEDS: Fluconazole 100mg tab ORAL SCH (09:12)
[2019-02-23] MEDS: Lactulose 20gm/30ml UDC ORAL SCH ×2 (09:12→17:42)
--- NOTE | 2019-02-23 09:25 | Nephrology Progress Note ---
Assessment/Plan Problem List: (1) Acute respiratory failure (2) Septic shock (3) Renal failure (4) Atrial fibrillation with rapid ventricular response (5) Cardiomyopathy Assessment Renal failure - ? Acute on Chronic, Partly dehydration Septic Shock UTI AT Fib with FVR h/o DM, proteinuria , HypoAlbuminemia Plan now intubated On 2 pressors max- BP remains low Poor prognosis - remains full code for now slow Hydrate 2D echo EjFx 40% antibiotics monitor renal parameters avoid nephrotoxics per orders Subjective ROS Limited/Unobtainable: Yes Interval Events/Complaints no intubated Objective Objective Last 24 Hour Vital Signs Date Time Temp Pulse Resp B/P (MAP) Pulse Ox O2 Delivery O2 Flow Rate FiO2 02/23/19 09:12 92/67 02/23/19 09:11 143 92/67 02/23/19 07:30 140 16 97/77 (84) 92 02/23/19 07:01 137 16 50 02/23/19 07:00 97/77 02/23/19 07:00 146 16 104/80 (88) 02/23/19 06:45 138 16 98/71 (80) 02/23/19 06:30 142 16 90/63 (72) 02/23/19 06:15 148 16 88/61 (70) 02/23/19 06:00 98.3 150 16 107/94 (98) 02/23/19 06:00 107/94 02/23/19 05:45 137 16 98/71 (80) 02/23/19 05:30 137 16 121/65 (83) 02/23/19 05:30 131 16 50 02/23/19 05:15 150 16 112/79 (90) 02/23/19 05:00 112/79 02/23/19 05:00 140 16 113/74 (87) 02/23/19 04:45 144 16 93/78 (83) 02/23/19 04:30 153 16 115/73 (87) 02/23/19 04:00 50 02/23/19 04:00 103/59 02/23/19 04:00 140 02/23/19 04:00 Endotracheal Tube 02/23/19 04:00 140 16 111/75 (87) 02/23/19 03:30 142 16 109/77 (88) 02/23/19 03:00 98.5 143 16 111/87 (95) 02/23/19 03:00 102/78 02/23/19 02:56 120 17 50 02/23/19 02:30 135 16 114/80 (91) 02/23/19 02:00 146 16 110/62 (78) 02/23/19 02:00 103/89 02/23/19 01:30 145 16 94/72 (79) 02/23/19 01:27 109 17 50 02/23/19 01:00 99/85 02/23/19 01:00 144 16 91/76 (81) 02/23/19 00:30 137 16 106/73 (84) 02/23/19 00:00 135 16 115/84 (94) 02/23/19 00:00 113/84 02/23/19 00:00 Endotracheal Tube 02/22/19 23:30 132 16 99/77 (84) 02/22/19 23:00 112 16 50 02/22/19 23:00 108/81 02/22/19 23:00 134 16 97/81 (86) 02/22/19 22:30 136 16 101/66 (78) 02/22/19 22:15 130 16 98/74 (82) 02/22/19 22:00 96/79 02/22/19 22:00 137 16 89/67 (74) 02/22/19 21:30 131 16 99/75 (83) 02/22/19 21:15 134 16 93/62 (72) 02/22/19 21:05 121 16 50 02/22/19 21:00 111/76 02/22/19 21:00 136 15 117/78 (91) 93 02/22/19 20:45 139 16 105/72 (83) 02/22/19 20:45 117/78 02/22/19 20:30 105/72 02/22/19 20:30 138 16 105/78 (87) 02/22/19 20:15 140 18 110/88 (95) 02/22/19 20:15 105/78 02/22/19 20:00 Endotracheal Tube 02/22/19 20:00 50 02/22/19 20:00 99/85 02/22/19 20:00 98.7 143 17 99/85 (90) 02/22/19 20:00 131 11/14/19 19:45 106/60 02/22/19 19:45 139 16 104/77 (86) 02/22/19 19:30 141 16 104/77 (86) 93 02/22/19 19:30 104/77 02/22/19 19:15 104/77 02/22/19 19:00 111/72 02/22/19 19:00 139 16 111/72 (85) 02/22/19 18:50 148 16 50 02/22/19 18:30 138 16 106/82 (90) 02/22/19 18:00 98.4 141 15 103/84 (90) 100 02/22/19 18:00 103/81 02/22/19 17:30 136 16 103/81 (88) 02/22/19 17:02 138 16 50 02/22/19 17:00 133 16 112/72 (85) 02/22/19 16:30 134 16 96/68 (77) 02/22/19 16:00 Endotracheal Tube 02/22/19 16:00 111/91 02/22/19 16:00 97.5 129 15 111/91 (98) 02/22/19 15:30 129 16 103/77 (86) 02/22/19 15:27 134 02/22/19 15:15 132 16 94/77 (83) 02/22/19 15:08 127 18 50 02/22/19 15:08 50 02/22/19 15:00 138 16 102/79 (87) 100 02/22/19 15:00 102/79 02/22/19 14:50 138 101/78 02/22/19 14:49 138 16 102/79 (87) 02/22/19 14:49 101/78 02/22/19 14:30 101/78 02/22/19 14:30 143 13 108/85 (93) 91 02/22/19 14:00 142 14 109/79 (89) 02/22/19 14:00 99/80 02/22/19 13:30 97.3 138 9 101/84 (90) 02/22/19 13:03 142 16 50 02/22/19 13:00 137 18 108/79 (89) 02/22/19 13:00 101/84 02/22/19 12:30 142 17 105/90 (95) 02/22/19 12:00 139 16 51/26 (34) 02/22/19 12:00 51/26 02/22/19 11:59 139 02/22/19 11:30 137 20 98/78 (85) 98 02/22/19 11:17 100 02/22/19 11:17 149 16 100 02/22/19 11:17 Endotracheal Tube 02/22/19 11:00 140 14 103/84 (90) 92 02/22/19 11:00 97/81 02/22/19 10:58 97/81 02/22/19 10:30 142 22 97/68 (78) 90 02/22/19 10:00 98/69 02/22/19 10:00 141 21 112/64 (80) 93 02/22/19 09:30 142 21 110/91 (97) 100 Intake and Output 02/22/19 02/23/19 18:59 06:59 Intake Total 2190.61 ml 1193.69 ml Output Total 185 ml 515 ml Balance 2005.61 ml 678.69 ml Intake Oral 0 ml 0 ml IV Total 2160.61 ml 1163.69 ml Other 30 ml 30 ml Output Urine Total 185 ml 515 ml # Bowel Movements 1 1 Laboratory Tests 02/22/19 09:52: Arterial Blood pH 7.278L, Arterial Blood Partial Pressure CO2 28.6L, Arterial Blood Partial Pressure O2 87.1, Arterial Blood HCO3 13.1*L, Arterial Blood Oxygen Saturation 95.7, Arterial Blood Base Excess -12.4*L, Melchor Test Positive 02/22/19 13:35: Arterial Blood pH 7.336L, Arterial Blood Partial Pressure CO2 25.5L, Arterial Blood Partial Pressure O2 447.8H, Arterial Blood HCO3 13.3*L, Arterial Blood Oxygen Saturation 99.7, Arterial Blood Base Excess -11.1*L, Melchor Test Positive , Lactic Acid Level 5.80H 02/22/19 20:16: Lactic Acid Level 4.60H 02/22/19 22:30: Lactic Acid Level 3.40H 02/23/19 04:30: Urine Eosinophils None seen 02/23/19 04:50: White Blood Count 12.1H, Red Blood Count 2.81L, Hemoglobin 9.2L, Hematocrit 28.5L, Mean Corpuscular Volume 101H, Mean Corpuscular Hemoglobin 32.8H, Mean Corpuscular Hemoglobin Concent 32.4, Red Cell Distribution Width 18.8H, Platelet Count 61L, Mean Platelet Volume 7.3, Neutrophils (%) (Auto) , Lymphocytes (%) (Auto) , Monocytes (%) (Auto) , Eosinophils (%) (Auto) , Basophils (%) (Auto) , Differential Total Cells Counted 100, Neutrophils % ( Manual) 93H, Lymphocytes % (Manual) 1L, Monocytes % (Manual) 6, Eosinophils % ( Manual) 0, Basophils % (Manual) 0, Band Neutrophils 0, Platelet Estimate DecreasedL, Platelet Morphology Normal, Anisocytosis 1+, Macrocytosis 1+, Ovalocytes 2+, Acanthocytes 1+, Sodium Level 136, Potassium Level 3.6, Chloride Level 103, Carbon Dioxide Level 20L, Anion Gap 13, Blood Urea Nitrogen 49H, Creatinine 2.0H, Estimat Glomerular Filtration Rate , Glucose Level 163H, Calcium Level 7.6L, Phosphorus Level 3.1, Magnesium Level 1.8, Total Bilirubin 2.8H, Direct Bilirubin 1.7H, Aspartate Amino Transf (AST/SGOT) 85H, Alanine Aminotransferase (ALT/SGPT) 41, Alkaline Phosphatase 83, Ammonia 25, C-Reactive Protein, Quantitative 5.2H, Pro-B-Type Natriuretic Peptide > 91200D, Total Protein 5.5L, Albumin 2.0L, Globulin 3.5, Albumin/Globulin Ratio 0.6L 02/23/19 08:10: Lactic Acid Level 2.20H Height (Feet): 5 Height (Inches): 6.00 Weight (Pounds): 154 General Appearance: no apparent distress EENT: other - vented Cardiovascular: tachycardia Respiratory/Chest: decreased breath sounds Abdomen: distended Jt Louis MD Feb 23, 2019 09:24
--- NOTE | 2019-02-23 10:14 | NUR ---
NURSE NOTES: Called and left message for Dr. Anderson at his office regarding ABG result. ABG result reported to rubber compounder supervisor. Awaiting call back at this time.
--- NOTE | 2019-02-23 10:30 | NUR ---
NURSE NOTES: Patient remains unresponsive. NO response to voice and light/deep pain. Gag reflex present. BP 92/80. Levophed remains at 15mg/min and Phenylephrine 20mcg/min. Will continue to monitor and titrate per protocol. Patient repositioned.
--- NOTE | 2019-02-23 13:12 | NUR ---
*-* INSURANCE *-* ALL CLINICALS AND REVIEWS HAVE BEEN FAXED TO: MARGARITA Clement Ref#[id number] CM: Dung #[phone] ext [phone] fax#[phone]
--- NOTE | 2019-02-23 13:33 | NUR ---
Social Work This SW received a consult to assist with end of life decision making. Patient is from [facility] and currently in the ICU, confused and unable to make own decisions. Patient has a POLST on file from [facility] (12/2018) requesting full code, full treatment. This SW requested a Bioethics Consultation (Dr. Hinson) regarding code status/end of life decision making, who plans to follow up to review on Tuesday. ICU etl analyst developer updated with this information. Addendum: 02/23/19 at 1342 by MAYRA CALERO Addendum: This SW contacted [facility], who confirmed patient does not have any family, POA or a decision maker. Bioethics to follow for decision making, as needed.
--- NOTE | 2019-02-23 13:38 | NUR ---
RD ASSESSMENT & RECOMMENDATIONS SEE CARE ACTIVITY FOR COMPLETE ASSESSMENT DAILY ESTIMATED NEEDS: Needs based on CRITICAL CARE, Sepsis, diabetes/ 51.4kg 22-30 kcals/kg 8442-0522 total kcals 1-2 g protein/kg 51-102 g total protein 25-30 mL/kg [id number] total fluid mLs NUTRITION DIAGNOSIS: * Swallowing difficulty R/T dysphagia, respiratory status as evidenced by h/o PEG, on GT feeding + oral grat on texture modified diet [employer], pt now orally intubated, NPO at this time. * Increased kcal/prot needs R/T sepsis as evidenced by elev wbc, febrile, elev RR -> wnl, elev HR, elev LA (11.8 -> 2.2 trend down), hypotensive, on pressor support. CURRENT TF:NPO ENTERAL NUTRITION RECOMMENDATIONS: Vital AF 1.2 @ 50ml/hr x 24 hrs to provide 1050ml, 1260kcal, 78g prot, 851ml free water * WITH HEMODYNAMIC STABILITY -> initiate Vital AF 1.2 @ 20ml/hr x 6 hrs, advance 10ml q 4-6 hrs as tolerated to goal rate -> HOB over 30 degrees/ water flush per MD * WITHOUT HEMODYNAMIC STABILITY -> rec trophic feeds of Vital AF 1.2 @ 10ml/hr x 24 hrs ADDITIONAL RECOMMENDATIONS: * RECALIBRATED BEDSCALE WT Per SNF, HT=65", [id number] (02/14/19) VS EMR [id number] * Monitor hemodynamic stability: on pressors x 2 * Monitor POC: social service consulted for end of life discussion -> pt on 4oz pureed + 4oz NTL liquids BID (lunch and dinner) [employer] * Monitor lytes closely, replete as needed * Monitor BGs closely: h/o DM + solumedrol
--- NOTE | 2019-02-23 14:00 | NUR ---
NURSE NOTES: Patient remains unresponsive. Patient remains on levophed at 15mcg/min and phenylephrine at 20mcg/min. BP stable. Will continue to monitor and titrate per protocol.
--- NOTE | 2019-02-23 14:27 | General Progress Note ---
Assessment/Plan Problem List: (1) Septic shock ICD Codes: A41.9 - Sepsis, unspecified organism; R65.21 - Severe sepsis with septic shock SNOMED: 04577143 (2) UTI (urinary tract infection) ICD Codes: N39.0 - Urinary tract infection, site not specified SNOMED: 02434996 Qualifiers: Qualified Codes: N39.0 - Urinary tract infection, site not specified (3) Renal failure ICD Codes: N19 - Unspecified kidney failure SNOMED: 80809896 Qualifiers: Qualified Codes: N17.9 - Acute kidney failure, unspecified (4) Abdominal pain ICD Codes: R10.9 - Unspecified abdominal pain SNOMED: 80875160 Qualifiers: Qualified Codes: R10.32 - Left lower quadrant pain (5) Severe sepsis ICD Codes: A41.9 - Sepsis, unspecified organism; R65.20 - Severe sepsis without septic shock SNOMED: 27482834 (6) Dehydration ICD Codes: E86.0 - Dehydration SNOMED: 33257640 (7) Atrial fibrillation with rapid ventricular response ICD Codes: I48.91 - Unspecified atrial fibrillation SNOMED: 246771102202922 Status: not improved, deteriorating Assessment/Plan: cont supportive care pressors- wean as able ivf iv abx stress dose steroids prognosis grim ethics eval - ?DNR code would likely be futile Subjective ROS Limited/Unobtainable: Yes Constitutional: Reports: malaise, weakness HEENT: Reports: no symptoms Cardiovascular: Reports: edema Respiratory: Reports: shortness of breath Gastrointestinal/Abdominal: Reports: difficulty swallowing Genitourinary: Reports: no symptoms Neurologic/Psychiatric: Reports: pre-existing deficit Endocrine: Reports: no symptoms Hematologic/Lymphatic: Reports: anemia Allergies: Coded Allergies: No Known Allergies (Unverified , 02/19/19) All Systems: reviewed and negative except above Subjective intubated on pressors. slightly less pressor requirements. labs noted. abg noted. on multiple iv abx. stress dose steroids. Objective Last 24 Hour Vital Signs Date Time Temp Pulse Resp B/P (MAP) Pulse Ox O2 Delivery O2 Flow Rate FiO2 02/23/19 14:00 141 16 130/93 (105) 96 02/23/19 13:30 146 16 96/82 (87) 02/23/19 13:01 147 16 50 02/23/19 13:00 98.3 148 16 93/65 (74) 02/23/19 12:30 145 16 99/59 (72) 87 02/23/19 12:00 147 02/23/19 12:00 142 16 117/66 (83) 100 02/23/19 12:00 50 02/23/19 12:00 Endotracheal Tube 02/23/19 11:30 153 16 92/80 (84) 02/23/19 11:00 139 16 96/70 (79) 99 02/23/19 11:00 96/70 02/23/19 10:34 146 16 50 02/23/19 10:30 141 16 107/93 (98) 02/23/19 10:15 142 16 101/83 (89) 02/23/19 10:00 140 16 92/66 (75) 99 02/23/19 10:00 92/66 02/23/19 09:45 141 16 92/69 (77) 02/23/19 09:30 145 16 86/64 (71) 02/23/19 09:25 140 16 50 02/23/19 09:15 138 16 99/77 (84) 02/23/19 09:12 92/67 02/23/19 09:11 143 92/67 02/23/19 09:00 99/77 02/23/19 09:00 135 16 92/67 (75) 99 02/23/19 08:45 138 16 101/62 (75) 02/23/19 08:30 142 16 96/71 (79) 02/23/19 08:15 140 16 102/83 (89) 02/23/19 08:00 98.5 141 16 101/67 (78) 02/23/19 08:00 Endotracheal Tube 02/23/19 08:00 134 02/23/19 08:00 102/83 02/23/19 08:00 50 02/23/19 07:30 140 16 97/77 (84) 92 02/23/19 07:01 137 16 50 02/23/19 07:00 97/77 02/23/19 07:00 146 16 104/80 (88) 02/23/19 06:45 138 16 98/71 (80) 02/23/19 06:30 142 16 90/63 (72) 02/23/19 06:15 148 16 88/61 (70) 02/23/19 06:00 98.3 150 16 107/94 (98) 02/23/19 06:00 107/94 02/23/19 05:45 137 16 98/71 (80) 02/23/19 05:30 137 16 121/65 (83) 02/23/19 05:30 131 16 50 02/23/19 05:15 150 16 112/79 (90) 02/23/19 05:00 112/79 02/23/19 05:00 140 16 113/74 (87) 02/23/19 04:45 144 16 93/78 (83) 02/23/19 04:30 153 16 115/73 (87) 02/23/19 04:00 50 02/23/19 04:00 103/59 02/23/19 04:00 140 02/23/19 04:00 Endotracheal Tube 02/23/19 04:00 140 16 111/75 (87) 02/23/19 03:30 142 16 109/77 (88) 02/23/19 03:00 98.5 143 16 111/87 (95) 02/23/19 03:00 102/78 02/23/19 02:56 120 17 50 02/23/19 02:30 135 16 114/80 (91) 02/23/19 02:00 146 16 110/62 (78) 02/23/19 02:00 103/89 02/23/19 01:30 145 16 94/72 (79) 02/23/19 01:27 109 17 50 02/23/19 01:00 99/85 02/23/19 01:00 144 16 91/76 (81) 02/23/19 00:30 137 16 106/73 (84) 02/23/19 00:00 135 16 115/84 (94) 02/23/19 00:00 113/84 02/23/19 00:00 Endotracheal Tube 02/22/19 23:30 132 16 99/77 (84) 02/22/19 23:00 112 16 50 02/22/19 23:00 108/81 02/22/19 23:00 134 16 97/81 (86) 02/22/19 22:30 136 16 101/66 (78) 11/14/19 22:15 130 16 98/74 (82) 02/22/19 22:00 96/79 02/22/19 22:00 137 16 89/67 (74) 02/22/19 21:30 131 16 99/75 (83) 02/22/19 21:15 134 16 93/62 (72) 02/22/19 21:05 121 16 50 02/22/19 21:00 111/76 02/22/19 21:00 136 15 117/78 (91) 93 02/22/19 20:45 139 16 105/72 (83) 02/22/19 20:45 117/78 02/22/19 20:30 105/72 02/22/19 20:30 138 16 105/78 (87) 02/22/19 20:15 140 18 110/88 (95) 02/22/19 20:15 105/78 02/22/19 20:00 Endotracheal Tube 02/22/19 20:00 50 02/22/19 20:00 99/85 02/22/19 20:00 98.7 143 17 99/85 (90) 02/22/19 20:00 131 02/22/19 19:45 106/60 02/22/19 19:45 139 16 104/77 (86) 02/22/19 19:30 141 16 104/77 (86) 93 02/22/19 19:30 104/77 02/22/19 19:15 104/77 02/22/19 19:00 111/72 02/22/19 19:00 139 16 111/72 (85) 02/22/19 18:50 148 16 50 02/22/19 18:30 138 16 106/82 (90) 02/22/19 18:00 98.4 141 15 103/84 (90) 100 02/22/19 18:00 103/81 02/22/19 17:30 136 16 103/81 (88) 02/22/19 17:02 138 16 50 02/22/19 17:00 133 16 112/72 (85) 02/22/19 16:30 134 16 96/68 (77) 02/22/19 16:00 Endotracheal Tube 02/22/19 16:00 111/91 02/22/19 16:00 97.5 129 15 111/91 (98) 02/22/19 15:30 129 16 103/77 (86) 02/22/19 15:27 134 02/22/19 15:15 132 16 94/77 (83) 02/22/19 15:08 127 18 50 02/22/19 15:08 50 02/22/19 15:00 138 16 102/79 (87) 100 02/22/19 15:00 102/79 02/22/19 14:50 138 101/78 02/22/19 14:49 138 16 102/79 (87) 02/22/19 14:49 101/78 02/22/19 14:30 101/78 02/22/19 14:30 143 13 108/85 (93) 91 Intake and Output 02/22/19 02/23/19 19:00 07:00 Intake Total 2106.23 ml 1169.69 ml Output Total 175 ml 565 ml Balance 1931.23 ml 604.69 ml Intake Oral 0 ml 0 ml IV Total 2076.23 ml 1139.69 ml Other 30 ml 30 ml Output Urine Total 175 ml 565 ml # Bowel Movements 1 1 Laboratory Tests 02/22/19 20:16: Lactic Acid Level 4.60H 02/22/19 22:30: Lactic Acid Level 3.40H 02/23/19 04:30: Urine Eosinophils None seen 02/23/19 04:50: White Blood Count 12.1H, Red Blood Count 2.81L, Hemoglobin 9.2L, Hematocrit 28.5L, Mean Corpuscular Volume 101H, Mean Corpuscular Hemoglobin 32.8H, Mean Corpuscular Hemoglobin Concent 32.4, Red Cell Distribution Width 18.8H, Platelet Count 61L, Mean Platelet Volume 7.3, Neutrophils (%) (Auto) , Lymphocytes (%) (Auto) , Monocytes (%) (Auto) , Eosinophils (%) (Auto) , Basophils (%) (Auto) , Differential Total Cells Counted 100, Neutrophils % ( Manual) 93H, Lymphocytes % (Manual) 1L, Monocytes % (Manual) 6, Eosinophils % ( Manual) 0, Basophils % (Manual) 0, Band Neutrophils 0, Platelet Estimate DecreasedL, Platelet Morphology Normal, Anisocytosis 1+, Macrocytosis 1+, Ovalocytes 2+, Acanthocytes 1+, Sodium Level 136, Potassium Level 3.6, Chloride Level 103, Carbon Dioxide Level 20L, Anion Gap 13, Blood Urea Nitrogen 49H, Creatinine 2.0H, Estimat Glomerular Filtration Rate , Glucose Level 163H, Calcium Level 7.6L, Phosphorus Level 3.1, Magnesium Level 1.8, Total Bilirubin 2.8H, Direct Bilirubin 1.7H, Aspartate Amino Transf (AST/SGOT) 85H, Alanine Aminotransferase (ALT/SGPT) 41, Alkaline Phosphatase 83, Ammonia 25, C-Reactive Protein, Quantitative 5.2H, Pro-B-Type Natriuretic Peptide > 32088H, Total Protein 5.5L, Albumin 2.0L, Globulin 3.5, Albumin/Globulin Ratio 0.6L 02/23/19 08:10: Lactic Acid Level 2.20H 02/23/19 09:42: Arterial Blood pH 7.520H, Arterial Blood Partial Pressure CO2 21.6*L, Arterial Blood Partial Pressure O2 92.6, Arterial Blood HCO3 17.2*L, Arterial Blood Oxygen Saturation 96.9, Arterial Blood Base Excess -4.2L, Melchor Test Positive Height (Feet): 5 Height (Inches): 6.00 Weight (Pounds): 154 Objective General Appearance: WD/WN, confused. unresponsive., orally intubated Neck: supple Cardiovascular: irregularly irregular Respiratory/Chest: chest wall non-tender, lungs clear, normal breath sounds, no respiratory distress Abdomen: normal bowel sounds, non tender, soft, no organomegaly Edema: no edema noted Arm (L), no edema noted Arm (R), no edema noted Leg (L), no edema noted Leg (R), no edema noted Pedal (L), no edema noted Pedal (R), no edema noted Generalized Neurologic: disoriented Mitchel Reis MD Feb 23, 2019 14:27
--- NOTE | 2019-02-23 16:00 | NUR ---
NURSE NOTES: Patient remains unresponsive to touch, pain, and voice. Patient remains orally intubated at this time with ET tube 7.0cm and 22cm at the lip line. Patient ventilator setting AC 16, tidal volume 550, FiO2 50%, and PEEP 5. patient tolerating setting with RR 16 and no sign of acute distress. Patient remains NPO at this time. gastrostomy tube remains patent, asymptomatic, and clamped at this time. Rectal tube in place and patent. Gross for urine retention remains patent and draining yellow urine at this time. Edema present in bilateral upper/lower extremities and abdomen. Patient upper extremities weeping serous fluid at this time. Right internal jugular triple lumen catheter and left upper arm PICC line remain patent and draining. Both patent and asymptomatic with intact dressings at this time. Right internal jugular triple lumen catheter still running levophed at 15mcg/min and phenylephrine at 20mcg/min at this time. Patient BP stable. Will continue to monitor and titrate drips per hospital protocol as needed. Left upper arm PICC running normal saline at 50mL/hr at this time. Will continue to monitor. Patient repositioned and oral care performed at this time. Patient cleaned at this time.
--- NOTE | 2019-02-23 16:42 | NUR ---
CASE MANAGEMENT:REVIEW 02/23/19 SI: SEPTIC SHOCK. RENAL FAILURE AFIB W/RVR. CARDIOMYOPATHY. INTUBATED 98.0 150 16 93/70 99% ON VENT SUPPORT 50% WBC+12.1 PLT-61 BUN+49 CR+2.0 IS: LEVOPHED GTT IV SOLUCORTEF Q8HRS IV ZOSYN Q12 IVF@50/HR LACTULOSE PO BID : ICU STATUS DCP: FROM [facility] PLAN: [facility]
--- NOTE | 2019-02-23 18:00 | NUR ---
NURSE NOTES: Dr Saldana verbally ordered for the prior feeding to be restarted at 20mL/hr and advance to goal per protocol. Will look up previous tube feeding formula, place order, and administer tube feeding. Order read back and verified.
--- NOTE | 2019-02-23 19:45 | NUR ---
HAND-OFF: Report given to ANDREINA Lake. Patient BP stable on 15mcg/min levophed and 20mcg/min phenylephrine. Endorsed to monitor and follow up.
--- NOTE | 2019-02-23 19:50 | NUR ---
NURSE NOTES: Received patient and report from ANDREINA Paige. Pt's in no acute distress. Pt's resting in bed, open eyes, responsive to light stimuli, intubated with ETT 7.0, 22 lipline, with setting AC16, TV550, 50%, PEEP4. Patient is Afib on monitoring tech, 130s. NPO at this time. GT clamped, no leaking at the GT site at this time. Rectal tube noted draining liquid brown stool due to lactulose. Gross noted and intact with small clear yellow urine output. Right IJ noted, intact and running NS at 50ml/hr. Also noted LEft upper arm PICC line, running Levophed at 15mcg/min and Luis Angel at 20mcg/min. Bed in low and locked position. Call light within reach. Bed alarm is on. Will continue to monitor and continue plan of care.
[2019-02-23] MEDS: Dyna-Hex 2% Top Sol 2oz TOPIC SCH (20:55)
--- NOTE | 2019-02-23 22:00 | NUR ---
NURSE NOTES: Pt's resting in bed, in no acute distress. VS stable. Will continue to monitor.
--- NOTE | 2019-02-23 23:30 | General Progress Note ---
Assessment/Plan Status: not improved, deteriorating Assessment/Plan: Assessment - TF leak - minor, GT relatively new and in good position - Abnormal LFT, ascites - ? chronic liver disease - Lactic acidosis - Resp failure - OBS / Delirium - Azotemia - Diarrhea - poor PX Recommendations - Check C Diff - lactulose trial - supportive care - Abx per ID Subjective Allergies: Coded Allergies: No Known Allergies (Unverified , 02/19/19) Subjective Above noted seen this am in ICU now intubated unresponsive Objective Last 24 Hour Vital Signs Date Time Temp Pulse Resp B/P (MAP) Pulse Ox O2 Delivery O2 Flow Rate FiO2 02/23/19 22:57 148 16 50 50 02/23/19 21:00 149 16 105/77 (86) 02/23/19 20:46 144 16 50 50 02/23/19 20:45 159 16 116/88 (97) 02/23/19 20:30 146 16 101/77 (85) 02/23/19 20:15 155 16 108/88 (95) 100 02/23/19 20:00 98.5 149 16 100/74 (83) 02/23/19 19:45 150 16 102/79 (87) 02/23/19 19:30 147 16 99/71 (80) 02/23/19 19:00 150 16 92/79 (83) 02/23/19 19:00 92/79 02/23/19 18:46 154 16 50 50 02/23/19 18:30 153 18 98/84 (89) 02/23/19 18:00 147 16 101/72 (82) 02/23/19 18:00 101/72 02/23/19 17:30 142 16 102/75 (84) 02/23/19 17:07 149 16 50 02/23/19 17:00 153 17 97/69 (78) 02/23/19 17:00 97/69 02/23/19 16:30 149 16 102/71 (81) 02/23/19 16:00 50 02/23/19 16:00 Endotracheal Tube 02/23/19 16:00 115/91 02/23/19 16:00 98.0 150 16 102/75 (84) 02/23/19 16:00 140 02/23/19 15:30 150 16 93/70 (78) 99 02/23/19 15:00 150 16 110/65 (80) 02/23/19 15:00 94/78 02/23/19 14:56 146 16 50 02/23/19 14:30 143 16 110/65 (80) 02/23/19 14:00 141 16 130/93 (105) 96 02/23/19 14:00 130/93 02/23/19 13:30 146 16 96/82 (87) 02/23/19 13:01 147 16 50 02/23/19 13:00 98.3 148 16 93/65 (74) 02/23/19 13:00 110/71 02/23/19 12:30 145 16 99/59 (72) 87 02/23/19 12:00 147 02/23/19 12:00 142 16 117/66 (83) 100 02/23/19 12:00 117/66 02/23/19 12:00 50 02/23/19 12:00 Endotracheal Tube 02/23/19 11:30 153 16 92/80 (84) 02/23/19 11:00 139 16 96/70 (79) 99 02/23/19 11:00 96/70 02/23/19 10:34 146 16 50 02/23/19 10:30 141 16 107/93 (98) 02/23/19 10:15 142 16 101/83 (89) 02/23/19 10:00 140 16 92/66 (75) 99 02/23/19 10:00 92/66 02/23/19 09:45 141 16 92/69 (77) 02/23/19 09:30 145 16 86/64 (71) 02/23/19 09:25 140 16 50 02/23/19 09:15 138 16 99/77 (84) 02/23/19 09:12 92/67 02/23/19 09:11 143 92/67 02/23/19 09:00 99/77 02/23/19 09:00 135 16 92/67 (75) 99 02/23/19 08:45 138 16 101/62 (75) 02/23/19 08:30 142 16 96/71 (79) 02/23/19 08:15 140 16 102/83 (89) 02/23/19 08:00 98.5 141 16 101/67 (78) 02/23/19 08:00 Endotracheal Tube 02/23/19 08:00 134 02/23/19 08:00 102/83 02/23/19 08:00 50 02/23/19 07:30 140 16 97/77 (84) 92 02/23/19 07:01 137 16 50 02/23/19 07:00 97/77 02/23/19 07:00 146 16 104/80 (88) 02/23/19 06:45 138 16 98/71 (80) 02/23/19 06:30 142 16 90/63 (72) 02/23/19 06:15 148 16 88/61 (70) 02/23/19 06:00 98.3 150 16 107/94 (98) 02/23/19 06:00 107/94 02/23/19 05:45 137 16 98/71 (80) 02/23/19 05:30 137 16 121/65 (83) 02/23/19 05:30 131 16 50 02/23/19 05:15 150 16 112/79 (90) 02/23/19 05:00 112/79 02/23/19 05:00 140 16 113/74 (87) 02/23/19 04:45 144 16 93/78 (83) 02/23/19 04:30 153 16 115/73 (87) 02/23/19 04:00 50 02/23/19 04:00 103/59 02/23/19 04:00 140 02/23/19 04:00 Endotracheal Tube 02/23/19 04:00 140 16 111/75 (87) 02/23/19 03:30 142 16 109/77 (88) 02/23/19 03:00 98.5 143 16 111/87 (95) 02/23/19 03:00 102/78 02/23/19 02:56 120 17 50 02/23/19 02:30 135 16 114/80 (91) 02/23/19 02:00 146 16 110/62 (78) 02/23/19 02:00 103/89 02/23/19 01:30 145 16 94/72 (79) 02/23/19 01:27 109 17 50 02/23/19 01:00 99/85 02/23/19 01:00 144 16 91/76 (81) 02/23/19 00:30 137 16 106/73 (84) 02/23/19 00:00 135 16 115/84 (94) 02/23/19 00:00 113/84 02/23/19 00:00 Endotracheal Tube 02/22/19 23:30 132 16 99/77 (84) Intake and Output 02/22/19 02/23/19 19:00 07:00 Intake Total 2106.23 ml 1169.69 ml Output Total 175 ml 565 ml Balance 1931.23 ml 604.69 ml Intake Oral 0 ml 0 ml IV Total 2076.23 ml 1139.69 ml Other 30 ml 30 ml Output Urine Total 175 ml 565 ml # Bowel Movements 1 1 Laboratory Tests 02/23/19 04:30: Urine Eosinophils None seen 02/23/19 04:50: White Blood Count 12.1H, Red Blood Count 2.81L, Hemoglobin 9.2L, Hematocrit 28.5L, Mean Corpuscular Volume 101H, Mean Corpuscular Hemoglobin 32.8H, Mean Corpuscular Hemoglobin Concent 32.4, Red Cell Distribution Width 18.8H, Platelet Count 61L, Mean Platelet Volume 7.3, Neutrophils (%) (Auto) , Lymphocytes (%) (Auto) , Monocytes (%) (Auto) , Eosinophils (%) (Auto) , Basophils (%) (Auto) , Differential Total Cells Counted 100, Neutrophils % ( Manual) 93H, Lymphocytes % (Manual) 1L, Monocytes % (Manual) 6, Eosinophils % ( Manual) 0, Basophils % (Manual) 0, Band Neutrophils 0, Platelet Estimate DecreasedL, Platelet Morphology Normal, Anisocytosis 1+, Macrocytosis 1+, Ovalocytes 2+, Acanthocytes 1+, Sodium Level 136, Potassium Level 3.6, Chloride Level 103, Carbon Dioxide Level 20L, Anion Gap 13, Blood Urea Nitrogen 49H, Creatinine 2.0H, Estimat Glomerular Filtration Rate , Glucose Level 163H, Calcium Level 7.6L, Phosphorus Level 3.1, Magnesium Level 1.8, Total Bilirubin 2.8H, Direct Bilirubin 1.7H, Aspartate Amino Transf (AST/SGOT) 85H, Alanine Aminotransferase (ALT/SGPT) 41, Alkaline Phosphatase 83, Ammonia 25, C-Reactive Protein, Quantitative 5.2H, Pro-B-Type Natriuretic Peptide > 45439X, Total Protein 5.5L, Albumin 2.0L, Globulin 3.5, Albumin/Globulin Ratio 0.6L 02/23/19 08:10: Lactic Acid Level 2.20H 02/23/19 09:42: Arterial Blood pH 7.520H, Arterial Blood Partial Pressure CO2 21.6*L, Arterial Blood Partial Pressure O2 92.6, Arterial Blood HCO3 17.2*L, Arterial Blood Oxygen Saturation 96.9, Arterial Blood Base Excess -4.2L, Melchor Test Positive 02/23/19 14:15: Lactic Acid Level 2.10H 02/23/19 20:50: Lactic Acid Level 2.00 Height (Feet): 5 Height (Inches): 6.00 Weight (Pounds): 154 Objective WDWN NCAT Supple Coarse ronchi tachy abd soft ND NT, (+) GT obtunded César Saldana MD Feb 23, 2019 23:30
[2019-02-24] VITALS (54 sets, daily range): BP systolic 69–130; BP diastolic 45–101
--- NOTE | 2019-02-24 00:15 | Progress Note ---
DATE: 02/23/2019 CARDIOLOGY PROGRESS NOTE SUBJECTIVE: The patient remains in the intensive care unit. Condition remains critical with guarded prognosis. The patient remains on pressors for hypotension and on stress dose steroids. OBJECTIVE: VITAL SIGNS: Blood pressure 93/65, pulse 148, respiratory rate 16, and afebrile. Monitored rhythm, sinus tachycardia. GENERAL: Orally intubated. Mechanically ventilated. LUNGS: Bilateral breath sounds. CARDIAC: Irregularly irregular rhythm. Rapid rate. Normal S1 and S2. ABDOMEN: Soft and nontender. EXTREMITIES: 2+ dependent edema. Distal pulses diminished. Perfusion decreased. LABORATORY DATA: White count 12 and hemoglobin 9. Lactic acid remains elevated at 2.2, but has decreased. BUN 49, creatinine 2, bicarb 20, potassium 3.6, and sodium 136. Magnesium 1.8. Pro-natriuretic peptide over 35,000. Albumin 2. ABG 7.52, 21, and 92. IMPRESSION: 1. Profound sepsis. 2. Profound shock. 3. Respiratory failure. 4. Metabolic and lactic acidosis, recovering. 5. Atrial fibrillation with rapid ventricular response. 6. Right-sided heart failure. 7. Portal hypertension 8. Chronic liver disease with cirrhosis. 9. Possible chronic pulmonary emboli. PLAN: 1. Ventilator support. 2. Stress dose steroids. 3. Pressors with taper as able. 4. Volume resuscitation. 5. Antimicrobials. 6. DVT prophylaxis. 7. Respiratory hygiene. 8. Stress ulcer prophylaxis. 9. Ultimately, we will consider further evaluation for pulmonary emboli. Jimmie Mason M.D. DR: THELMA JOB#: [id number] CC: CHRISTINE
--- NOTE | 2019-02-24 03:30 | NUR ---
NURSE NOTES: Pt's resting in bed, eyes closed, in no acute distress. BP101/76, hold off on Luis Angel at this time, Levophed still running at 15mcg/min. Will continue to monitor.
--- NOTE | 2019-02-24 04:15 | Progress Note ---
DATE: 02/23/2019 CARDIOLOGY PROGRESS NOTE NOTE: DICTATION ENDED ABRUPTLY. Jimmie Mason M.D. DR: GISEL JOB#: [id number] CC:
[2019-02-24] MEDS: Norepinephrine Bitartrate 16 MG in D5W 500ml 484 ML IV SCH (04:40)
--- NOTE | 2019-02-24 06:00 | NUR ---
NURSE NOTES: Pt's resting in bed, asleep, eyes closed. VS stable. Levophed decreased to 6mcg/min. Will continue to monitor.
--- NOTE | 2019-02-24 07:20 | NUR ---
HAND-OFF: Report given to ANDREINA Paige.
--- NOTE | 2019-02-24 07:21 | NUR ---
NURSE NOTES: Received patient from ANDREINA Lake. Patient moving head back and forth at this time but does not make eye contact and does not track. Patient orbital sockets swollen at this time. Patient has anasarca. Bilateral upper arms weeping at this time. Patient not moving ams or legs at this time. Patient only moving her head. Patient orally intubated with ET tube size 7.0cm with 22cm at the lip line. Ventilator setting AC 16, tidal volume 550, FiO2 50%, and PEEP 5. Patient has G tube that is patent, asymptomatic, and running vital AF at 30mL/hr with no residual noted. Goal for tube feeding is 50mL/hr. Will increase per order. Patient has right internal jugular triple lumen catheter central line running Levophed at 8mcg/min at this time with BP of ____. Patient has left upper arm PICC line that is patent, asymptomatic, and running normal saline at 50mL/hr at this time. Patient has rectal tube that is patent and draining brown liquid stool at this time. Patient has a martinez for urine retention that is patent and draining straw yellow urine at this time. Patient did not have labs drawn this morning. Will follow up with MD. Patient bed in low position with bed alarm on and call light in reach at this time. Oral care and repositioning done at this time. Addendum: 02/24/19 at 0829 by Grecia Prieto RN BP 88/56. Will continue to increase Levophed drip per protocol as needed and continue to monitor.
--- NOTE | 2019-02-24 07:25 | NUR ---
RESPIRATORY NOTE: Received pt on ETT 7.0@22cm lip line, secured by anchor fast, with vent settings: AC 16-550ml-50%FiO2- peep 5. Pt is resting on bed, opens eyes, and responsive to stimuli, but unable to follow commands. Oral care sone, move ETT to the left. No SOB or resp distress noted. Alarms are set and audible, vent is plugged into the red outlet, ambu bag is at bedside. Will continue to monitor pt.
--- NOTE | 2019-02-24 08:56 | NUR ---
RESPIRATORY NOTE: Pt's heart rate is not stable, HR 154bpm, pt is also on pressure medications. Unable to wean today. ANDREINA Wilkins at bedside and aware. Will continue to monitor pt.
[2019-02-24] MEDS: Piperacillin/Tazobactam 3.375 GM in NS 110 ML IVPB SCH ×2 (09:01→20:47)
[2019-02-24] MEDS: Sodium Citrate 30ml GT SCH (09:01)
[2019-02-24] MEDS: Lactulose 20gm/30ml UDC ORAL SCH ×2 (09:01→17:30)
[2019-02-24] MEDS: Fluconazole 100mg tab ORAL SCH (09:01)
[2019-02-24] MEDS: Pantoprazole Inj IVP SCH ×2 (09:01→20:47)
--- NOTE | 2019-02-24 09:13 | General Progress Note ---
Assessment/Plan Problem List: (1) Septic shock ICD Codes: A41.9 - Sepsis, unspecified organism; R65.21 - Severe sepsis with septic shock SNOMED: 55882405 (2) UTI (urinary tract infection) ICD Codes: N39.0 - Urinary tract infection, site not specified SNOMED: 35162506 Qualifiers: Qualified Codes: N39.0 - Urinary tract infection, site not specified (3) Renal failure ICD Codes: N19 - Unspecified kidney failure SNOMED: 45230071 Qualifiers: Qualified Codes: N17.9 - Acute kidney failure, unspecified (4) Abdominal pain ICD Codes: R10.9 - Unspecified abdominal pain SNOMED: 49029980 Qualifiers: Qualified Codes: R10.32 - Left lower quadrant pain (5) Severe sepsis ICD Codes: A41.9 - Sepsis, unspecified organism; R65.20 - Severe sepsis without septic shock SNOMED: 75916616 (6) Dehydration ICD Codes: E86.0 - Dehydration SNOMED: 61063090 (7) Atrial fibrillation with rapid ventricular response ICD Codes: I48.91 - Unspecified atrial fibrillation SNOMED: 598550635338796 Status: not improved, deteriorating Assessment/Plan: cont supportive care pressors- wean as able ivf iv abx follow up labs tube feeds stress dose steroids prognosis grim ethics eval - ?DNR code would likely be futile Subjective ROS Limited/Unobtainable: Yes Constitutional: Reports: malaise, weakness HEENT: Reports: no symptoms Cardiovascular: Reports: no symptoms Respiratory: Reports: shortness of breath Gastrointestinal/Abdominal: Reports: difficulty swallowing Genitourinary: Reports: no symptoms Neurologic/Psychiatric: Reports: pre-existing deficit Endocrine: Reports: no symptoms Hematologic/Lymphatic: Reports: anemia Allergies: Coded Allergies: No Known Allergies (Unverified , 02/19/19) All Systems: reviewed and negative except above Subjective remains intubated on pressors. slightly less pressor requirements. poor uop. multiple iv abx. labs pending Objective Last 24 Hour Vital Signs Date Time Temp Pulse Resp B/P (MAP) Pulse Ox O2 Delivery O2 Flow Rate FiO2 02/24/19 08:30 127 17 69/50 (56) 100 02/24/19 08:22 128 25 88/56 (67) 100 02/24/19 08:15 131 20 82/64 (70) 100 02/24/19 08:00 50 02/24/19 08:00 97.5 130 14 85/52 (63) 100 02/24/19 08:00 Endotracheal Tube 02/24/19 07:25 143 16 50 02/24/19 07:00 137 16 104/57 (73) 100 02/24/19 07:00 104/57 02/24/19 06:30 137 16 105/80 (88) 100 02/24/19 06:00 98.5 139 20 101/69 (80) 100 02/24/19 06:00 105/80 02/24/19 05:37 138 16 96/62 (73) 100 02/24/19 05:30 142 18 88/60 (69) 02/24/19 05:30 98/60 02/24/19 05:19 152 17 114/68 (83) 02/24/19 05:15 110/70 02/24/19 05:00 145 16 111/70 (84) 02/24/19 05:00 114/68 02/24/19 04:55 153 17 50 50 02/24/19 04:40 93/78 02/24/19 04:30 150 18 93/78 (83) 02/24/19 04:00 147 02/24/19 04:00 50 02/24/19 04:00 Endotracheal Tube 02/24/19 04:00 93/78 02/24/19 04:00 140 16 101/76 (84) 02/24/19 03:30 156 17 90/72 (78) 02/24/19 03:14 140 16 50 50 02/24/19 03:00 97/64 02/24/19 03:00 98.7 147 15 99/79 (86) 02/24/19 02:30 144 16 107/75 (86) 02/24/19 02:00 107/75 02/24/19 02:00 141 16 106/80 (89) 02/24/19 01:30 140 16 114/76 (89) 02/24/19 01:02 154 16 50 50 02/24/19 01:00 144 16 112/89 (97) 02/24/19 01:00 114/76 02/24/19 00:40 145 16 106/87 (93) 100 02/24/19 00:30 139 16 114/83 (93) 02/24/19 00:00 50 02/24/19 00:00 128 02/24/19 00:00 Endotracheal Tube 02/24/19 00:00 113/83 02/24/19 00:00 152 17 113/83 (93) 02/23/19 23:30 147 16 99/79 (86) 02/23/19 23:00 161 16 111/80 (90) 02/23/19 23:00 99/79 02/23/19 22:57 148 16 50 50 02/23/19 22:30 148 16 107/77 (87) 02/23/19 22:00 107/77 02/23/19 22:00 144 16 99/83 (88) 02/23/19 21:30 144 16 119/75 (90) 02/23/19 21:00 149 16 105/77 (86) 02/23/19 21:00 100/61 02/23/19 20:46 144 16 50 50 02/23/19 20:45 159 16 116/88 (97) 02/23/19 20:30 146 16 101/77 (85) 02/23/19 20:15 155 16 108/88 (95) 100 02/23/19 20:00 Endotracheal Tube 02/23/19 20:00 108/88 02/23/19 20:00 50 02/23/19 20:00 138 02/23/19 20:00 98.5 149 16 100/74 (83) 02/23/19 19:45 150 16 102/79 (87) 02/23/19 19:30 147 16 99/71 (80) 02/23/19 19:00 150 16 92/79 (83) 02/23/19 19:00 92/79 02/23/19 18:46 154 16 50 50 02/23/19 18:30 153 18 98/84 (89) 02/23/19 18:00 147 16 101/72 (82) 02/23/19 18:00 101/72 02/23/19 17:30 142 16 102/75 (84) 02/23/19 17:07 149 16 50 02/23/19 17:00 153 17 97/69 (78) 02/23/19 17:00 97/69 02/23/19 16:30 149 16 102/71 (81) 02/23/19 16:00 50 02/23/19 16:00 Endotracheal Tube 02/23/19 16:00 115/91 02/23/19 16:00 98.0 150 16 102/75 (84) 02/23/19 16:00 140 02/23/19 15:30 150 16 93/70 (78) 99 02/23/19 15:00 150 16 110/65 (80) 02/23/19 15:00 94/78 02/23/19 14:56 146 16 50 02/23/19 14:30 143 16 110/65 (80) 02/23/19 14:00 141 16 130/93 (105) 96 02/23/19 14:00 130/93 02/23/19 13:30 146 16 96/82 (87) 02/23/19 13:01 147 16 50 02/23/19 13:00 98.3 148 16 93/65 (74) 02/23/19 13:00 110/71 02/23/19 12:30 145 16 99/59 (72) 87 02/23/19 12:00 147 02/23/19 12:00 142 16 117/66 (83) 100 02/23/19 12:00 117/66 02/23/19 12:00 50 02/23/19 12:00 Endotracheal Tube 02/23/19 11:30 153 16 92/80 (84) 02/23/19 11:00 139 16 96/70 (79) 99 02/23/19 11:00 96/70 02/23/19 10:34 146 16 50 02/23/19 10:30 141 16 107/93 (98) 02/23/19 10:15 142 16 101/83 (89) 02/23/19 10:00 140 16 92/66 (75) 99 02/23/19 10:00 92/66 02/23/19 09:45 141 16 92/69 (77) 02/23/19 09:30 145 16 86/64 (71) 02/23/19 09:25 140 16 50 02/23/19 09:15 138 16 99/77 (84) 02/23/19 09:12 92/67 02/23/19 09:11 143 92/67 Intake and Output 02/23/19 02/24/19 18:59 06:59 Intake Total 1116.44 ml 1308.1325 ml Output Total 465 ml 960 ml Balance 651.44 ml 348.1325 ml Intake Oral 0 ml 0 ml IV Total 1086.44 ml 1058.1325 ml Tube Feeding 220 ml Other 30 ml 30 ml Output Urine Total 465 ml 210 ml Stool Total 750 ml # Bowel Movements 2 2 Laboratory Tests 02/23/19 09:42: Arterial Blood pH 7.520H, Arterial Blood Partial Pressure CO2 21.6*L, Arterial Blood Partial Pressure O2 92.6, Arterial Blood HCO3 17.2*L, Arterial Blood Oxygen Saturation 96.9, Arterial Blood Base Excess -4.2L, Melchor Test Positive 02/23/19 14:15: Lactic Acid Level 2.10H 02/23/19 20:50: Lactic Acid Level 2.00 02/24/19 07:38: Lactic Acid Level 2.10H Height (Feet): 5 Height (Inches): 6.00 Weight (Pounds): 155 Objective General Appearance: WD/WN, confused. unresponsive., orally intubated Neck: supple Cardiovascular: irregularly irregular Respiratory/Chest: chest wall non-tender, lungs clear, normal breath sounds, no respiratory distress Abdomen: normal bowel sounds, non tender, soft, no organomegaly Edema: no edema noted Arm (L), no edema noted Arm (R), no edema noted Leg (L), no edema noted Leg (R), no edema noted Pedal (L), no edema noted Pedal (R), no edema noted Generalized Neurologic: disoriented Mitchel Reis MD Feb 24, 2019 09:13
[2019-02-24 09:57] LABS: HEMATOCRIT 28.4 % (37.0-47.0); MEAN CORPUSCULAR VOLUME 102 FL (80-99); PLATELET COUNT 51 K/UL (150-450); RED BLOOD COUNT 2.78 M/UL (4.20-5.40); RED CELL DISTRIBUTION WIDTH 19.5 % (11.6-14.8); WHITE BLOOD COUNT 14.3 K/UL (4.8-10.8)
--- NOTE | 2019-02-24 10:00 | NUR ---
NURSE NOTES: Patient BP now 117/64 with levophed drip running at 12mcg/min. Will continue to monitor blood pressure and titrate per protocol. Bed in low position with bed alarm on and call light in reach. Patient repositioned at this time.
[2019-02-24 10:18] LABS: ALANINE AMINOTRANSFERASE 34 U/L (12-78); ALBUMIN 1.8 G/DL (3.4-5.0); ALBUMIN/GLOBULIN RATIO 0.6 (1.0-2.7); ALKALINE PHOSPHATASE 74 U/L (46-116); ANION GAP 7 mmol/L (5-15); ASPARTATE AMINO TRANSFERASE 59 U/L (15-37); BILIRUBIN,TOTAL 2.7 MG/DL (0.2-1.0); BLOOD UREA NITROGEN 43 mg/dL (7-18); CALCIUM 7.3 MG/DL (8.5-10.1); CARBON DIOXIDE 24 MMOL/L (21-32); CHLORIDE 103 MMOL/L (98-107); POTASSIUM 2.8 MMOL/L (3.5-5.1); SODIUM 132 MMOL/L (136-145)
[2019-02-24 10:20] LABS: BILIRUBIN,DIRECT 1.7 MG/DL (0.0-0.3)
[2019-02-24] MEDS ORDERED: Digoxin 0.5mg/2ml Inj IVP SCH (11:45)
--- NOTE | 2019-02-24 11:47 | Nephrology Progress Note ---
Assessment/Plan Problem List: (1) Acute respiratory failure (2) Septic shock (3) Renal failure (4) Atrial fibrillation with rapid ventricular response (5) Cardiomyopathy Assessment Renal failure - ? Acute on Chronic, Partly dehydration Septic Shock UTI AT Fib with FVR h/o DM, proteinuria , HypoAlbuminemia Plan one dose dig stop NS now intubated On 2 pressors max- BP remains low Poor prognosis - remains full code for now slow Hydrate 2D echo EjFx 40% antibiotics monitor renal parameters avoid nephrotoxics per orders Subjective ROS Limited/Unobtainable: Yes Objective Objective Last 24 Hour Vital Signs Date Time Temp Pulse Resp B/P (MAP) Pulse Ox O2 Delivery O2 Flow Rate FiO2 02/24/19 11:20 134 16 40 02/24/19 11:00 133 18 102/76 (85) 100 02/24/19 11:00 102/76 02/24/19 10:30 142 23 117/64 (81) 100 02/24/19 10:00 117/64 02/24/19 10:00 140 20 94/81 (85) 100 02/24/19 09:30 131 21 104/69 (81) 100 02/24/19 09:15 131 21 104/69 (81) 100 02/24/19 09:00 115/60 02/24/19 09:00 138 22 115/60 (78) 100 02/24/19 08:56 154 22 50 02/24/19 08:45 126 16 105/53 (70) 100 02/24/19 08:30 127 17 69/50 (56) 100 02/24/19 08:30 69/50 02/24/19 08:22 128 25 88/56 (67) 100 02/24/19 08:15 82/64 02/24/19 08:15 131 20 82/64 (70) 100 02/24/19 08:00 88/56 02/24/19 08:00 50 02/24/19 08:00 97.5 130 14 85/52 (63) 100 02/24/19 08:00 Endotracheal Tube 02/24/19 07:25 143 16 50 02/24/19 07:00 137 16 104/57 (73) 100 02/24/19 07:00 104/57 02/24/19 06:30 137 16 105/80 (88) 100 02/24/19 06:00 98.5 139 20 101/69 (80) 100 02/24/19 06:00 105/80 02/24/19 05:37 138 16 96/62 (73) 100 02/24/19 05:30 142 18 88/60 (69) 02/24/19 05:30 98/60 02/24/19 05:19 152 17 114/68 (83) 02/24/19 05:15 110/70 02/24/19 05:00 145 16 111/70 (84) 02/24/19 05:00 114/68 02/24/19 04:55 153 17 50 50 02/24/19 04:40 93/78 02/24/19 04:30 150 18 93/78 (83) 02/24/19 04:00 147 02/24/19 04:00 50 02/24/19 04:00 Endotracheal Tube 02/24/19 04:00 93/78 02/24/19 04:00 140 16 101/76 (84) 02/24/19 03:30 156 17 90/72 (78) 02/24/19 03:14 140 16 50 50 02/24/19 03:00 97/64 02/24/19 03:00 98.7 147 15 99/79 (86) 02/24/19 02:30 144 16 107/75 (86) 02/24/19 02:00 107/75 02/24/19 02:00 141 16 106/80 (89) 02/24/19 01:30 140 16 114/76 (89) 02/24/19 01:02 154 16 50 50 02/24/19 01:00 144 16 112/89 (97) 02/24/19 01:00 114/76 02/24/19 00:40 145 16 106/87 (93) 100 02/24/19 00:30 139 16 114/83 (93) 02/24/19 00:00 50 02/24/19 00:00 128 02/24/19 00:00 Endotracheal Tube 02/24/19 00:00 113/83 02/24/19 00:00 152 17 113/83 (93) 02/23/19 23:30 147 16 99/79 (86) 02/23/19 23:00 161 16 111/80 (90) 02/23/19 23:00 99/79 02/23/19 22:57 148 16 50 50 02/23/19 22:30 148 16 107/77 (87) 02/23/19 22:00 107/77 02/23/19 22:00 144 16 99/83 (88) 02/23/19 21:30 144 16 119/75 (90) 02/23/19 21:00 149 16 105/77 (86) 02/23/19 21:00 100/61 02/23/19 20:46 144 16 50 50 02/23/19 20:45 159 16 116/88 (97) 02/23/19 20:30 146 16 101/77 (85) 02/23/19 20:15 155 16 108/88 (95) 100 02/23/19 20:00 Endotracheal Tube 02/23/19 20:00 108/88 02/23/19 20:00 50 02/23/19 20:00 138 02/23/19 20:00 98.5 149 16 100/74 (83) 02/23/19 19:45 150 16 102/79 (87) 02/23/19 19:30 147 16 99/71 (80) 02/23/19 19:00 150 16 92/79 (83) 02/23/19 19:00 92/79 02/23/19 18:46 154 16 50 50 02/23/19 18:30 153 18 98/84 (89) 02/23/19 18:00 147 16 101/72 (82) 02/23/19 18:00 101/72 02/23/19 17:30 142 16 102/75 (84) 02/23/19 17:07 149 16 50 02/23/19 17:00 153 17 97/69 (78) 02/23/19 17:00 97/69 02/23/19 16:30 149 16 102/71 (81) 02/23/19 16:00 50 02/23/19 16:00 Endotracheal Tube 02/23/19 16:00 115/91 02/23/19 16:00 98.0 150 16 102/75 (84) 02/23/19 16:00 140 02/23/19 15:30 150 16 93/70 (78) 99 02/23/19 15:00 150 16 110/65 (80) 02/23/19 15:00 94/78 02/23/19 14:56 146 16 50 02/23/19 14:30 143 16 110/65 (80) 02/23/19 14:00 141 16 130/93 (105) 96 02/23/19 14:00 130/93 02/23/19 13:30 146 16 96/82 (87) 02/23/19 13:01 147 16 50 02/23/19 13:00 98.3 148 16 93/65 (74) 02/23/19 13:00 110/71 02/23/19 12:30 145 16 99/59 (72) 87 02/23/19 12:00 147 02/23/19 12:00 142 16 117/66 (83) 100 02/23/19 12:00 117/66 02/23/19 12:00 50 02/23/19 12:00 Endotracheal Tube Intake and Output 02/23/19 02/24/19 18:59 06:59 Intake Total 1116.44 ml 1308.1325 ml Output Total 465 ml 960 ml Balance 651.44 ml 348.1325 ml Intake Oral 0 ml 0 ml IV Total 1086.44 ml 1058.1325 ml Tube Feeding 220 ml Other 30 ml 30 ml Output Urine Total 465 ml 210 ml Stool Total 750 ml # Bowel Movements 2 2 Laboratory Tests 02/23/19 14:15: Lactic Acid Level 2.10H 02/23/19 20:50: Lactic Acid Level 2.00 02/24/19 07:38: Lactic Acid Level 2.10H 02/24/19 09:20: Lactic Acid Level 2.10, White Blood Count 14.3H, Red Blood Count 2.78L, Hemoglobin 9.0L, Hematocrit 28.4L, Mean Corpuscular Volume 102H, Mean Corpuscular Hemoglobin 32.4H, Mean Corpuscular Hemoglobin Concent 31.7L, Red Cell Distribution Width 19.5H, Platelet Count 51L, Mean Platelet Volume 7.5, Neutrophils (%) (Auto) , Lymphocytes (%) (Auto) , Monocytes (%) (Auto) , Eosinophils (%) (Auto) , Basophils (%) (Auto) , Differential Total Cells Counted 100, Neutrophils % (Manual) 96H, Lymphocytes % (Manual) 1L, Monocytes % (Manual) 3, Eosinophils % (Manual) 0, Basophils % (Manual) 0, Band Neutrophils 0 , Platelet Estimate DecreasedL, Platelet Morphology Normal, Polychromasia 1+, Hypochromasia 1+, Anisocytosis 2+, Macrocytosis 2+, Ovalocytes Occasional, Sodium Level 132L, Potassium Level 2.8L, Chloride Level 103, Carbon Dioxide Level 24, Anion Gap 7, Blood Urea Nitrogen 43H, Creatinine 2.0H, Estimat Glomerular Filtration Rate , Glucose Level 218H, Calcium Level 7.3L, Total Bilirubin 2.7H, Direct Bilirubin 1.7H, Aspartate Amino Transf (AST/SGOT) 59H, Alanine Aminotransferase (ALT/SGPT) 34, Alkaline Phosphatase 74, Total Protein 5.0L, Albumin 1.8L, Globulin 3.2, Albumin/Globulin Ratio 0.6L Height (Feet): 5 Height (Inches): 6.00 Weight (Pounds): 155 General Appearance: no apparent distress EENT: other - vebnted Cardiovascular: tachycardia Respiratory/Chest: decreased breath sounds Abdomen: distended Jt Louis MD Feb 24, 2019 11:47
--- NOTE | 2019-02-24 12:00 | NUR ---
NURSE NOTES: Patient continues to occasionally move her head back and forth at this time but does not make eye contact and does not track. Patient orbital sockets remain swollen at this time. Patient has anasarca. Bilateral upper arms weeping at this time. Patient not moving ams or legs at this time. DTI noted on left heel. Dressing intact. Wound care nurse to come see patient. Patient now wiggling her feet occasionally. Patient remains orally intubated with ET tube size 7.0cm with 22cm at the lip line. Ventilator setting AC 16, tidal volume 550, FiO2 50%, and PEEP 5. Patient tolerating setting with SpO2 100% and RR 16. Gastrostomy tube remains patent, asymptomatic, and running vital AF at 40mL/hr with no residual noted. Will continue to increase rate as tolerated until goal of 50mL/hr is reached. Right internal jugular triple lumen catheter remains patient, asymptomatic and running Levophed at 12mcg/min at this time with BP of 117/101. Left upper arm PICC line remains patent, asymptomatic, and saline locked at this time. Rectal tube remains patent and draining brown liquid stool at this time. Gross for urine retention remains patent and draining yellow urine at this time with some sediment. Potassium level 2.[address] Louis ordered 40mEq KCL IV. Will follow up and administer medication per order. Patient bed in low position with bed alarm on and call light in reach at this time. Oral care and repositioning done at this time. Addendum: 02/24/19 at 1458 by Grecia Prieto RN Cyanosis noted in bilateral toes. Dr Heller notified. No orders received.
--- NOTE | 2019-02-24 14:00 | NUR ---
NURSE NOTES: Blood pressure 105/64 on 12 mcg/min of levophed. Patient now on low air loss overlay mattress. Patient repositioned and oral care and bed bath performed at this time. Patient showing no sign of acute distress. Will continue to monitor.
--- NOTE | 2019-02-24 14:45 | Consultation ---
History of Present Illness General Date patient seen: Feb 24, 2019 Chief Complaint: Abdominal Pain Present Illness HPI This is a 78-year-old female with multiple medical communities who is a jail resident that presented to [facility] and septic shock currently admitted to the intensive care unit on pressors. Patient unresponsive and unable to provide examined history. EMR reviewed. During admission on pressors patient identified to have skin changes noted in the lower extremities and distal digits. Identified to have a weeping wound on the right great toe. Leukocytosis, abnormal labs, ill-appearing. Surgery called to evaluate and assist with care. Patient seen, patient evaluated, chart reviewed. Allergies: Coded Allergies: No Known Allergies (Unverified , 02/19/19) Medication History Scheduled Amino Acids/Protein Hydrolys (Pro-Stat Liquid), 30 ML ORAL TWICE A DAY, ( Reported) Amiodarone Hcl* (Pacerone*), 100 MG ORAL EVERY 8 HOURS, (Reported) Clonidine Hcl* (Catapres*), 0.1 MG ORAL EVERY 6 HOURS, (Reported) Famotidine* (Pepcid 20mg tablet*), 20 MG ORAL DAILY, (Reported) Miscellaneous Medications Ascorbic Acid/Ascorbate Sodium (Vitamin C 250 mg Tablet Chew), 500 MG PO, ( Reported) Ipratropium [place] (Atrovent Hfa), 12.9 GM IH, (Reported) Lactulose (Lactulose*), 30 ML ORAL, (Reported) Mvi, Adult No.4 With Vit K (Infuvite Adult), 10 ML IV, (Reported) Patient History Limited by: medical condition History Provided By: Medical Record, PMD Healthcare decision maker Resuscitation status Advanced Directive on File Past Medical/Surgical History Past Medical/Surgical History: (1) UTI (urinary tract infection) (2) Septic shock (3) Renal failure (4) Abdominal pain (5) Severe sepsis (6) Dehydration (7) Atrial fibrillation with rapid ventricular response (8) Cardiomyopathy (9) Acute respiratory failure Review of Systems ROS Narrative Cannot obtain given medical condition Physical Exam General Appearance: moderate distress Lines, tubes and drains: other HEENT: mucous membranes moist Respiratory/Chest: decreased breath sounds, on vent Cardiovascular/Chest: tachycardia Abdomen: soft, hypoactive bowel sounds Extremities: inflammation, slow capillary refill, other Skin Exam: other Neurologic: unresponsiveness Last 24 Hour Vital Signs Date Time Temp Pulse Resp B/P (MAP) Pulse Ox O2 Delivery O2 Flow Rate FiO2 02/24/19 14:00 130 21 113/63 (80) 99 02/24/19 14:00 113/63 02/24/19 13:30 135 21 74/51 (59) 99 02/24/19 13:00 100/86 02/24/19 13:00 143 19 100/86 (91) 100 02/24/19 12:59 148 22 40 02/24/19 12:30 137 18 102/66 (78) 100 02/24/19 12:25 150 02/24/19 12:00 40 02/24/19 12:00 117/101 02/24/19 12:00 149 02/24/19 12:00 98.3 132 22 117/101 (106) 100 02/24/19 12:00 Endotracheal Tube 02/24/19 11:30 133 16 80/64 (69) 100 02/24/19 11:20 134 16 40 02/24/19 11:00 133 18 102/76 (85) 100 02/24/19 11:00 102/76 02/24/19 10:55 128 02/24/19 10:30 142 23 117/64 (81) 100 02/24/19 10:00 117/64 02/24/19 10:00 140 20 94/81 (85) 100 02/24/19 09:30 131 21 104/69 (81) 100 02/24/19 09:15 131 21 104/69 (81) 100 02/24/19 09:00 115/60 02/24/19 09:00 138 22 115/60 (78) 100 02/24/19 08:56 154 22 50 02/24/19 08:45 126 16 105/53 (70) 100 02/24/19 08:30 127 17 69/50 (56) 100 02/24/19 08:30 69/50 02/24/19 08:22 128 25 88/56 (67) 100 02/24/19 08:15 82/64 02/24/19 08:15 131 20 82/64 (70) 100 02/24/19 08:00 88/56 02/24/19 08:00 149 02/24/19 08:00 50 02/24/19 08:00 97.5 130 14 85/52 (63) 100 02/24/19 08:00 Endotracheal Tube 02/24/19 07:25 143 16 50 02/24/19 07:00 137 16 104/57 (73) 100 02/24/19 07:00 104/57 02/24/19 06:30 137 16 105/80 (88) 100 02/24/19 06:00 98.5 139 20 101/69 (80) 100 02/24/19 06:00 105/80 02/24/19 05:37 138 16 96/62 (73) 100 02/24/19 05:30 142 18 88/60 (69) 02/24/19 05:30 98/60 02/24/19 05:19 152 17 114/68 (83) 02/24/19 05:15 110/70 02/24/19 05:00 145 16 111/70 (84) 02/24/19 05:00 114/68 02/24/19 04:55 153 17 50 50 02/24/19 04:40 93/78 02/24/19 04:30 150 18 93/78 (83) 02/24/19 04:00 147 02/24/19 04:00 50 02/24/19 04:00 Endotracheal Tube 02/24/19 04:00 93/78 02/24/19 04:00 140 16 101/76 (84) 02/24/19 03:30 156 17 90/72 (78) 02/24/19 03:14 140 16 50 50 02/24/19 03:00 97/64 02/24/19 03:00 98.7 147 15 99/79 (86) 02/24/19 02:30 144 16 107/75 (86) 02/24/19 02:00 107/75 02/24/19 02:00 141 16 106/80 (89) 02/24/19 01:30 140 16 114/76 (89) 02/24/19 01:02 154 16 50 50 02/24/19 01:00 144 16 112/89 (97) 02/24/19 01:00 114/76 02/24/19 00:40 145 16 106/87 (93) 100 02/24/19 00:30 139 16 114/83 (93) 02/24/19 00:00 50 02/24/19 00:00 128 02/24/19 00:00 Endotracheal Tube 02/24/19 00:00 113/83 02/24/19 00:00 152 17 113/83 (93) 02/23/19 23:30 147 16 99/79 (86) 02/23/19 23:00 161 16 111/80 (90) 02/23/19 23:00 99/79 02/23/19 22:57 148 16 50 50 02/23/19 22:30 148 16 107/77 (87) 02/23/19 22:00 107/77 02/23/19 22:00 144 16 99/83 (88) 02/23/19 21:30 144 16 119/75 (90) 02/23/19 21:00 149 16 105/77 (86) 02/23/19 21:00 100/61 02/23/19 20:46 144 16 50 50 02/23/19 20:45 159 16 116/88 (97) 02/23/19 20:30 146 16 101/77 (85) 02/23/19 20:15 155 16 108/88 (95) 100 02/23/19 20:00 Endotracheal Tube 02/23/19 20:00 108/88 02/23/19 20:00 50 02/23/19 20:00 138 02/23/19 20:00 98.5 149 16 100/74 (83) 02/23/19 19:45 150 16 102/79 (87) 02/23/19 19:30 147 16 99/71 (80) 02/23/19 19:00 150 16 92/79 (83) 02/23/19 19:00 92/79 02/23/19 18:46 154 16 50 50 02/23/19 18:30 153 18 98/84 (89) 02/23/19 18:00 147 16 101/72 (82) 02/23/19 18:00 101/72 02/23/19 17:30 142 16 102/75 (84) 02/23/19 17:07 149 16 50 02/23/19 17:00 153 17 97/69 (78) 02/23/19 17:00 97/69 02/23/19 16:30 149 16 102/71 (81) 02/23/19 16:00 50 02/23/19 16:00 Endotracheal Tube 02/23/19 16:00 115/91 02/23/19 16:00 98.0 150 16 102/75 (84) 02/23/19 16:00 140 02/23/19 15:30 150 16 93/70 (78) 99 02/23/19 15:00 150 16 110/65 (80) 02/23/19 15:00 94/78 02/23/19 14:56 146 16 50 Intake and Output 02/23/19 02/24/19 19:00 07:00 Intake Total 1113.44 ml 1318.2625 ml Output Total 880 ml 515 ml Balance 233.44 ml 803.2625 ml Intake Oral 0 ml 0 ml IV Total 1083.44 ml 1038.2625 ml Tube Feeding 250 ml Other 30 ml 30 ml Output Urine Total 430 ml 215 ml Stool Total 450 ml 300 ml # Bowel Movements 2 2 Laboratory Tests Test 02/23/19 20:50 02/24/19 07:38 02/24/19 09:20 Lactic Acid Level 2.00 mmol/L (0.4-2.0) 2.10 mmol/L (0.4-2.0) H 2.10 mmol/L (0.66-2.22) White Blood Count 14.3 K/UL (4.8-10.8) H Red Blood Count 2.78 M/UL (4.20-5.40) L Hemoglobin 9.0 G/DL (12.0-16.0) L Hematocrit 28.4 % (37.0-47.0) L Mean Corpuscular Volume 102 FL (80-99) H Mean Corpuscular Hemoglobin 32.4 PG (27.0-31.0) H Mean Corpuscular Hemoglobin Concent 31.7 G/DL (32.0-36.0) L Red Cell Distribution Width 19.5 % (11.6-14.8) H Platelet Count 51 K/UL (150-450) L Mean Platelet Volume 7.5 FL (6.5-10.1) Neutrophils (%) (Auto) % (45.0-75.0) Lymphocytes (%) (Auto) % (20.0-45.0) Monocytes (%) (Auto) % (1.0-10.0) Eosinophils (%) (Auto) % (0.0-3.0) Basophils (%) (Auto) % (0.0-2.0) Differential Total Cells Counted 100 Neutrophils % (Manual) 96 % (45-75) H Lymphocytes % (Manual) 1 % (20-45) L Monocytes % (Manual) 3 % (1-10) Eosinophils % (Manual) 0 % (0-3) Basophils % (Manual) 0 % (0-2) Band Neutrophils 0 % (0-8) Platelet Estimate Decreased L Platelet Morphology Normal Polychromasia 1+ Hypochromasia 1+ Anisocytosis 2+ Macrocytosis 2+ Ovalocytes Occasional Sodium Level 132 MMOL/L (136-145) L Potassium Level 2.8 MMOL/L (3.5-5.1) L Chloride Level 103 MMOL/L (98-107) Carbon Dioxide Level 24 MMOL/L (21-32) Anion Gap 7 mmol/L (5-15) Blood Urea Nitrogen 43 mg/dL (7-18) H Creatinine 2.0 MG/DL (0.55-1.30) H Estimat Glomerular Filtration Rate mL/min (>60) Glucose Level 218 MG/DL (74-106) H Calcium Level 7.3 MG/DL (8.5-10.1) L Total Bilirubin 2.7 MG/DL (0.2-1.0) H Direct Bilirubin 1.7 MG/DL (0.0-0.3) H Aspartate Amino Transf (AST/SGOT) 59 U/L (15-37) H Alanine Aminotransferase (ALT/SGPT) 34 U/L (12-78) Alkaline Phosphatase 74 U/L (46-116) Total Protein 5.0 G/DL (6.4-8.2) L Albumin 1.8 G/DL (3.4-5.0) L Globulin 3.2 g/dL Albumin/Globulin Ratio 0.6 (1.0-2.7) L Height (Feet): 5 Height (Inches): 6.00 Weight (Pounds): 155 Medications Current Medications Medications (Trade) Dose Ordered Sig/Pam Route PRN Reason Start Time Stop Time Status Last Admin Dose Admin Acetaminophen (Tylenol) 650 mg Q4H PRN ORAL Mild Pain/Temp > 100.5 02/19/19 17:15 03/21/19 17:14 Chlorhexidine Gluconate (Dayna-Hex 2%) 1 applic DAILY@2000 TOPIC 02/20/19 20:00 03/22/19 19:59 02/23/19 20:55 Fluconazole (Diflucan) 100 mg DAILY ORAL 02/21/19 10:39 02/28/19 10:38 02/24/19 09:01 Lactulose (Cephulac) 20 gm TWICE A DAY ORAL 02/21/19 22:15 03/23/19 22:14 02/24/19 09:01 Norepinephrine Bitartrate 16 mg/ Dextrose 500 ml @ 0 mls/hr Q24H IV 02/22/19 12:00 03/24/19 11:59 02/24/19 04:40 Pantoprazole (Protonix) 40 mg Q12HR IVP 02/20/19 21:00 03/21/19 17:59 02/24/19 09:01 Phenylephrine HCl 100 mg/Sodium Chloride 250 ml @ 0 mls/hr Q24H IV 02/19/19 20:15 03/21/19 20:14 02/23/19 09:11 Piperacillin Sod/ Tazobactam Sod 3.375 gm/Sodium Chloride 110 ml @ 27.5 mls/hr Q12HR IVPB 02/19/19 21:00 02/26/19 20:59 02/24/19 09:01 Potassium Chloride 100 ml @ 50 mls/hr Q2H IVPB 02/24/19 11:30 02/24/19 15:29 02/24/19 13:57 Assessment/Plan Problem List: (1) Septic shock Assessment & Plan: 78-year-old female in septic shock in the intensive care unit on pressors. Leukocytosis, anemia, abnormal labs. Tachycardic. On respiratory support. On examination patient identified to have slowed capillary refill in the distal extremities. Patient furthermore identified to have a weeping wound in the right great toe. Patient is currently very ill and septic and requiring pressors. Unfortunately given her medical condition comorbidities and history there is potential for distal vasoconstriction and potentially even necrosis of the distal aspects but further life-saving measures pressors currently required and necessary and indicated. We will continue to monitor extremities and evaluate them. Will wean off pressors as possible. Lactic acidosis improving. Continue IV antibiotics Wean pressors Appreciate ICU care and management We will follow with recommendations ICD Codes: A41.9 - Sepsis, unspecified organism; R65.21 - Severe sepsis with septic shock SNOMED: [id number] (2) Abdominal pain Assessment & Plan: Chronic liver disease/cirrhosis with signs of portal hypertension including moderate ascites and hepatofugal flow in the portal vein. Gallbladder wall edema nonspecific Bilateral pleural effusions. Medical renal disease Findings: There is extensive artifact from the patient's arms limiting evaluation. Oral contrast was given. Gastrostomy tube is noted in good position. There are small bilateral pleural effusions present with adjacent ill-defined parenchymal density either atelectasis or pneumonia. Correlate clinically. Small pericardial effusion is present and there is generalized cardiomegaly present. Hiatal hernia noted. Aorta and coronary artery calcification present. Mild ascites is demonstrated. No compelling evidence for bowel obstruction. There is extensive diverticulosis involving the colon without obvious diverticulitis. Generalized anasarca noted. The appendix is not seen. The kidneys show no obvious hydronephrosis. The right kidney appears atrophic. There is a suggestion of cysts within the right kidney but this is grossly limited in terms of visualization. The gallbladder is demonstrated. The rectum appears low in location suggestive of prolapse and with a moderate degree of fecal retention. IMPRESSION: Limited evaluation due to artifact. Mild to moderate ascites Trace bilateral pleural effusions. Basilar atelectasis and/or infiltrate. Trace pericardial effusion Generalized cardiomegaly. Atherosclerotic vascular disease Extensive diverticulosis of the colon. No definite diverticulitis. Anasarca Gross catheter Query rectal prolapse ICD Codes: R10.9 - Unspecified abdominal pain SNOMED: [id number] Qualifiers: Qualified Codes: R10.32 - Left lower quadrant pain (3) Severe sepsis ICD Codes: A41.9 - Sepsis, unspecified organism; R65.20 - Severe sepsis without septic shock SNOMED: [id number] Tristan Heller Feb 24, 2019 14:45
--- NOTE | 2019-02-24 14:46 | Cardiology Report ---
APPROVED REPORT EKG Measurement Heart [id number] Atrial fibrillation with rapid ventricular response Low voltage QRS Septal infarct, age undetermined Abnormal ECG
--- NOTE | 2019-02-24 15:04 | NUR ---
NURSE NOTES:WOUND CARE NOTES: Pt noted to have DTPI medial L heel (L)3.2cm x (W)2.6cm.Base of wound is maroon and fluctuant. L foot cold to touch. All five metatarsals are mottled. Non-blanching erythema with fluctuance noted to medial R heel. (L)3cm x (W)3.5cm.R foot cold to touch . All five metatarsals are mottled. Non-blanching erythema with shearing noted to sacrum. Tx.Plan:Apply Cavilon Skin Barrier to both heels. Cover each heel with Optifoam drsgs. Change every 7 days and prn. Apply Moisture Barrier Paste to Sacrum. Cover with Optifoam drsg. Change every 3 days and prn. Reposition at least every 2hours or as tolerated. Off-load heels with pillow. APM/MANNY mattress.
--- NOTE | 2019-02-24 15:13 | NUR ---
CASE MANAGEMENT: REVIEW SI: SEPTIC SHOCK. RENAL FAILURE . A- FIB w/RVR T 98.5 HR 152 RR 16 BP 88/60 SAT 100% ETT FIO2 WBC 14.3 H/H 9.0/27.4 NA 132 K 2.8 IS: LEVOPHED GTT DIFLUCAN GT QD ZOSYN IV Q12 IVF@50/HR LACTULOSE GT BID GT FEEDING ICU STATUS DCP: PATIENT IS FROM [facility]
--- NOTE | 2019-02-24 15:34 | Pulmonolgy Critical Care Note ---
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, chronic atrial fibrillation, hypertension, diastolic congestive heart failure, septic shock, hypothermia, hypotension, hypoxemia severe PCM, thrombocytopenia, anemia, leukocytosis, acute renal failure tachycardia, no on Vent support PLAN care noted vent management monitor acid base support as able full code pressors as needed IV antibiotics respiratory care SNF meds supportive care suction as needed monitor for aspiration oxygen therapy as needed try to wean as able close follow up of acid base for now prognosis guarded and currently patient is critical medications/laboratory data/nursing notes/ICU care reviewed in detail note reviewed and edited care discussed with RN and RT ICU time spent 40 minutes Critical Care - Subjective Interval Events: care noted now intubated failed BIPAP oxygen needs reviewed ICU care noted ROS Limited/Unobtainable: Yes Condition: critical EKG Rhythm: Sinus Rhythm Critical Care - Objective CXR: CHF ET-Tube: 7.0 ET Position: 22 Last 24 Hour Vital Signs Noted Labs Test 02/20/19 11:54 02/20/19 12:15 02/20/19 14:10 02/20/19 17:59 Lactic Acid Level 6.40 mmol/L (0.4-2.0) 5.20 mmol/L (0.66-2.22) 5.10 mmol/L (0.4-2.0) Random Vancomycin Level 14.9 ug/mL Urine Random Sodium < 20 mmol/L (20-110) Test 02/20/19 21:15 02/21/19 04:20 02/21/19 06:00 02/21/19 07:25 Lactic Acid Level 5.00 mmol/L (0.66-2.22) 3.50 mmol/L (0.4-2.0) White Blood Count 12.8 K/UL (4.8-10.8) Red Blood Count 2.28 M/UL (4.20-5.40) Hemoglobin 7.6 G/DL (12.0-16.0) Hematocrit 25.0 % (37.0-47.0) Mean Corpuscular Volume 109 FL (80-99) Mean Corpuscular Hemoglobin 33.4 PG (27.0-31.0) Mean Corpuscular Hemoglobin Concent 30.6 G/DL (32.0-36.0) Red Cell Distribution Width 17.2 % (11.6-14.8) Platelet Count 93 K/UL (150-450) Mean Platelet Volume 6.7 FL (6.5-10.1) Neutrophils (%) (Auto) % (45.0-75.0) Lymphocytes (%) (Auto) % (20.0-45.0) Monocytes (%) (Auto) % (1.0-10.0) Eosinophils (%) (Auto) % (0.0-3.0) Basophils (%) (Auto) % (0.0-2.0) Differential Total Cells Counted 100 Neutrophils % (Manual) 85 % (45-75) Lymphocytes % (Manual) 8 % (20-45) Monocytes % (Manual) 7 % (1-10) Eosinophils % (Manual) 0 % (0-3) Basophils % (Manual) 0 % (0-2) Band Neutrophils 0 % (0-8) Platelet Estimate Decreased Platelet Morphology Normal Hypochromasia 3+ Anisocytosis 1+ Macrocytosis 1+ Sodium Level 131 MMOL/L (136-145) Potassium Level 4.5 MMOL/L (3.5-5.1) Chloride Level 99 MMOL/L (98-107) Carbon Dioxide Level 23 MMOL/L (21-32) Anion Gap 9 mmol/L (5-15) Blood Urea Nitrogen 57 mg/dL (7-18) Creatinine 2.2 MG/DL (0.55-1.30) Estimat Glomerular Filtration Rate mL/min (>60) Glucose Level 194 MG/DL (74-106) Uric Acid 8.6 MG/DL (2.6-7.2) Calcium Level 6.5 MG/DL (8.5-10.1) Phosphorus Level 4.2 MG/DL (2.5-4.9) Magnesium Level 2.2 MG/DL (1.8-2.4) Iron Level 21 ug/dL (50-175) Total Iron Binding Capacity 150 ug/dL (250-450) Percent Iron Saturation 14 % (15-50) Unsaturated Iron Binding 129 ug/dL (112-346) Ferritin 158 NG/ML (8-388) Total Bilirubin 2.3 MG/DL (0.2-1.0) Direct Bilirubin 1.5 MG/DL (0.0-0.3) Gamma Glutamyl Transpeptidase 37 U/L (5-85) Aspartate Amino Transf (AST/SGOT) 64 U/L (15-37) Alanine Aminotransferase (ALT/SGPT) 35 U/L (12-78) Alkaline Phosphatase 88 U/L (46-116) Ammonia 119 umol/L (11-32) Total Creatine Kinase 216 U/L (26-308) Troponin I 0.206 ng/mL (0.000-0.056) C-Reactive Protein, Quantitative 7.3 mg/dL (0.00-0.90) Pro-B-Type Natriuretic Peptide 92944 pg/mL (0-125) Total Protein 6.0 G/DL (6.4-8.2) Albumin 2.5 G/DL (3.4-5.0) Globulin 3.5 g/dL Albumin/Globulin Ratio 0.7 (1.0-2.7) Triglycerides Level 27 MG/DL (30-150) Cholesterol Level < 50 MG/DL (< 200) LDL Cholesterol 29 mg/dL (<100) HDL Cholesterol 9 MG/DL (40-60) Cholesterol/HDL Ratio 5.6 (3.3-4.4) Vitamin B12 Level 1915 PG/ML (193-986) Folate 38.7 NG/ML (8.6-58.9) Thyroid Stimulating Hormone (TSH) 3.456 uiU/mL (0.358-3.740) Urine Eosinophils Occasional (NONE SEEN) Test 02/21/19 09:10 02/21/19 10:05 02/21/19 15:55 02/21/19 19:56 Arterial Blood pH 7.284 (7.350-7.450) 7.335 (7.350-7.450) Arterial Blood Partial Pressure CO2 43.4 mmHg (35.0-45.0) 40.8 mmHg (35.0-45.0) Arterial Blood Partial Pressure O2 72.9 mmHg (75.0-100.0) 121.9 mmHg (75.0-100.0) Arterial Blood HCO3 20.1 mmol/L (22.0-26.0) 21.3 mmol/L (22.0-26.0) Arterial Blood Oxygen Saturation 92.0 % (95-100) 98.1 % (95-100) Arterial Blood Base Excess -6.1 (-2-2) -4.2 (-2-2) Melchor Test Positive Positive Lactic Acid Level 3.40 mmol/L (0.66-2.22) 2.70 mmol/L (0.4-2.0) Test 02/21/19 21:40 02/21/19 23:55 02/22/19 02:00 02/22/19 04:00 Lactic Acid Level 2.20 mmol/L (0.4-2.0) 3.70 mmol/L (0.66-2.22) 4.20 mmol/L (0.4-2.0) White Blood Count 14.0 K/UL (4.8-10.8) Red Blood Count 2.86 M/UL (4.20-5.40) Hemoglobin 9.5 G/DL (12.0-16.0) Hematocrit 30.4 % (37.0-47.0) Mean Corpuscular Volume 107 FL (80-99) Mean Corpuscular Hemoglobin 33.3 PG (27.0-31.0) Mean Corpuscular Hemoglobin Concent 31.3 G/DL (32.0-36.0) Red Cell Distribution Width 19.8 % (11.6-14.8) Platelet Count 83 K/UL (150-450) Mean Platelet Volume 7.5 FL (6.5-10.1) Neutrophils (%) (Auto) % (45.0-75.0) Lymphocytes (%) (Auto) % (20.0-45.0) Monocytes (%) (Auto) % (1.0-10.0) Eosinophils (%) (Auto) % (0.0-3.0) Basophils (%) (Auto) % (0.0-2.0) Differential Total Cells Counted 100 Neutrophils % (Manual) 91 % (45-75) Lymphocytes % (Manual) 6 % (20-45) Monocytes % (Manual) 3 % (1-10) Eosinophils % (Manual) 0 % (0-3) Basophils % (Manual) 0 % (0-2) Band Neutrophils 0 % (0-8) Nucleated Red Blood Cells 1 /100 WBC Platelet Estimate Decreased Platelet Morphology Normal Anisocytosis 1+ Macrocytosis 1+ Blister Cells 1+ Acanthocytes 1+ Schistocytes Sodium Level 135 MMOL/L (136-145) Potassium Level 4.3 MMOL/L (3.5-5.1) Chloride Level 102 MMOL/L (98-107) Carbon Dioxide Level 22 MMOL/L (21-32) Anion Gap 11 mmol/L (5-15) Blood Urea Nitrogen 52 mg/dL (7-18) Creatinine 2.2 MG/DL (0.55-1.30) Estimat Glomerular Filtration Rate mL/min (>60) Glucose Level 195 MG/DL (74-106) Uric Acid 8.3 MG/DL (2.6-7.2) Calcium Level 6.7 MG/DL (8.5-10.1) Phosphorus Level 4.3 MG/DL (2.5-4.9) Magnesium Level 2.0 MG/DL (1.8-2.4) Total Bilirubin 2.6 MG/DL (0.2-1.0) Direct Bilirubin 1.5 MG/DL (0.0-0.3) Aspartate Amino Transf (AST/SGOT) 72 U/L (15-37) Alanine Aminotransferase (ALT/SGPT) 39 U/L (12-78) Alkaline Phosphatase 97 U/L (46-116) Troponin I 0.191 ng/mL (0.000-0.056) Total Protein 6.4 G/DL (6.4-8.2) Albumin 2.4 G/DL (3.4-5.0) Globulin 4.0 g/dL Albumin/Globulin Ratio 0.6 (1.0-2.7) Cortisol AM Sample 10.5 UG/DL Test 02/22/19 04:45 02/22/19 04:50 02/22/19 09:52 02/22/19 13:35 Urine Eosinophils None seen (NONE SEEN) Lactic Acid Level 4.70 mmol/L (0.66-2.22) 5.80 mmol/L (0.4-2.0) Arterial Blood pH 7.278 (7.350-7.450) 7.336 (7.350-7.450) Arterial Blood Partial Pressure CO2 28.6 mmHg (35.0-45.0) 25.5 mmHg (35.0-45.0) Arterial Blood Partial Pressure O2 87.1 mmHg (75.0-100.0) 447.8 mmHg (75.0-100.0) Arterial Blood HCO3 13.1 mmol/L (22.0-26.0) 13.3 mmol/L (22.0-26.0) Arterial Blood Oxygen Saturation 95.7 % (95-100) 99.7 % (95-100) Arterial Blood Base Excess -12.4 (-2-2) -11.1 (-2-2) Melchor Test Positive Positive Test 02/22/19 20:16 02/22/19 22:30 02/23/19 04:30 02/23/19 04:50 Lactic Acid Level 4.60 mmol/L (0.4-2.0) 3.40 mmol/L (0.66-2.22) Urine Eosinophils None seen (NONE SEEN) White Blood Count 12.1 K/UL (4.8-10.8) Red Blood Count 2.81 M/UL (4.20-5.40) Hemoglobin 9.2 G/DL (12.0-16.0) Hematocrit 28.5 % (37.0-47.0) Mean Corpuscular Volume 101 FL (80-99) Mean Corpuscular Hemoglobin 32.8 PG (27.0-31.0) Mean Corpuscular Hemoglobin Concent 32.4 G/DL (32.0-36.0) Red Cell Distribution Width 18.8 % (11.6-14.8) Platelet Count 61 K/UL (150-450) Mean Platelet Volume 7.3 FL (6.5-10.1) Neutrophils (%) (Auto) % (45.0-75.0) Lymphocytes (%) (Auto) % (20.0-45.0) Monocytes (%) (Auto) % (1.0-10.0) Eosinophils (%) (Auto) % (0.0-3.0) Basophils (%) (Auto) % (0.0-2.0) Differential Total Cells Counted 100 Neutrophils % (Manual) 93 % (45-75) Lymphocytes % (Manual) 1 % (20-45) Monocytes % (Manual) 6 % (1-10) Eosinophils % (Manual) 0 % (0-3) Basophils % (Manual) 0 % (0-2) Band Neutrophils 0 % (0-8) Platelet Estimate Decreased Platelet Morphology Normal Anisocytosis 1+ Macrocytosis 1+ Ovalocytes 2+ Acanthocytes 1+ Sodium Level 136 MMOL/L (136-145) Potassium Level 3.6 MMOL/L (3.5-5.1) Chloride Level 103 MMOL/L (98-107) Carbon Dioxide Level 20 MMOL/L (21-32) Anion Gap 13 mmol/L (5-15) Blood Urea Nitrogen 49 mg/dL (7-18) Creatinine 2.0 MG/DL (0.55-1.30) Estimat Glomerular Filtration Rate mL/min (>60) Glucose Level 163 MG/DL (74-106) Calcium Level 7.6 MG/DL (8.5-10.1) Phosphorus Level 3.1 MG/DL (2.5-4.9) Magnesium Level 1.8 MG/DL (1.8-2.4) Total Bilirubin 2.8 MG/DL (0.2-1.0) Direct Bilirubin 1.7 MG/DL (0.0-0.3) Aspartate Amino Transf (AST/SGOT) 85 U/L (15-37) Alanine Aminotransferase (ALT/SGPT) 41 U/L (12-78) Alkaline Phosphatase 83 U/L (46-116) Ammonia 25 umol/L (11-32) C-Reactive Protein, Quantitative 5.2 mg/dL (0.00-0.90) Pro-B-Type Natriuretic Peptide > 84118 pg/mL (0-125) Total Protein 5.5 G/DL (6.4-8.2) Albumin 2.0 G/DL (3.4-5.0) Globulin 3.5 g/dL Albumin/Globulin Ratio 0.6 (1.0-2.7) Test 02/23/19 08:10 Objective: PHYSICAL EXAMINATION: GENERAL: The patient is a chronically ill-appearing female, on VENT NECK: Supple. There is a central line in the right subclavian area. HEART: tachy RR.without MRG LUNGS: reduced breath sounds with scattered rhonchi; no wheeze ABDOMEN: Soft, nontender, nondistended. no HSM EXTREMITIES: No clubbing, cyanosis, or edema. NEURO: response to pain Critical Care - Objective Last 24 Hour Vital Signs Date Time Temp Pulse Resp B/P (MAP) Pulse Ox O2 Delivery O2 Flow Rate FiO2 02/24/19 14:00 130 21 113/63 (80) 99 11/16/19 14:00 113/63 02/24/19 13:30 135 21 74/51 (59) 99 02/24/19 13:00 100/86 02/24/19 13:00 143 19 100/86 (91) 100 02/24/19 12:59 148 22 40 02/24/19 12:30 137 18 102/66 (78) 100 02/24/19 12:25 150 02/24/19 12:00 40 02/24/19 12:00 117/101 02/24/19 12:00 149 02/24/19 12:00 98.3 132 22 117/101 (106) 100 02/24/19 12:00 Endotracheal Tube 02/24/19 11:30 133 16 80/64 (69) 100 02/24/19 11:20 134 16 40 02/24/19 11:00 133 18 102/76 (85) 100 02/24/19 11:00 102/76 02/24/19 10:55 128 02/24/19 10:30 142 23 117/64 (81) 100 02/24/19 10:00 117/64 02/24/19 10:00 140 20 94/81 (85) 100 02/24/19 09:30 131 21 104/69 (81) 100 02/24/19 09:15 131 21 104/69 (81) 100 02/24/19 09:00 115/60 02/24/19 09:00 138 22 115/60 (78) 100 02/24/19 08:56 154 22 50 02/24/19 08:45 126 16 105/53 (70) 100 02/24/19 08:30 127 17 69/50 (56) 100 02/24/19 08:30 69/50 02/24/19 08:22 128 25 88/56 (67) 100 02/24/19 08:15 82/64 02/24/19 08:15 131 20 82/64 (70) 100 02/24/19 08:00 88/56 02/24/19 08:00 149 02/24/19 08:00 50 02/24/19 08:00 97.5 130 14 85/52 (63) 100 02/24/19 08:00 Endotracheal Tube 02/24/19 07:25 143 16 50 02/24/19 07:00 137 16 104/57 (73) 100 02/24/19 07:00 104/57 02/24/19 06:30 137 16 105/80 (88) 100 02/24/19 06:00 98.5 139 20 101/69 (80) 100 02/24/19 06:00 105/80 02/24/19 05:37 138 16 96/62 (73) 100 02/24/19 05:30 142 18 88/60 (69) 02/24/19 05:30 98/60 02/24/19 05:19 152 17 114/68 (83) 02/24/19 05:15 110/70 02/24/19 05:00 145 16 111/70 (84) 02/24/19 05:00 114/68 02/24/19 04:55 153 17 50 50 02/24/19 04:40 93/78 02/24/19 04:30 150 18 93/78 (83) 02/24/19 04:00 147 02/24/19 04:00 50 02/24/19 04:00 Endotracheal Tube 02/24/19 04:00 93/78 02/24/19 04:00 140 16 101/76 (84) 02/24/19 03:30 156 17 90/72 (78) 02/24/19 03:14 140 16 50 50 02/24/19 03:00 97/64 02/24/19 03:00 98.7 147 15 99/79 (86) 02/24/19 02:30 144 16 107/75 (86) 02/24/19 02:00 107/75 02/24/19 02:00 141 16 106/80 (89) 02/24/19 01:30 140 16 114/76 (89) 02/24/19 01:02 154 16 50 50 02/24/19 01:00 144 16 112/89 (97) 02/24/19 01:00 114/76 02/24/19 00:40 145 16 106/87 (93) 100 02/24/19 00:30 139 16 114/83 (93) 02/24/19 00:00 50 02/24/19 00:00 128 02/24/19 00:00 Endotracheal Tube 02/24/19 00:00 113/83 02/24/19 00:00 152 17 113/83 (93) 02/23/19 23:30 147 16 99/79 (86) 02/23/19 23:00 161 16 111/80 (90) 02/23/19 23:00 99/79 02/23/19 22:57 148 16 50 50 02/23/19 22:30 148 16 107/77 (87) 02/23/19 22:00 107/77 02/23/19 22:00 144 16 99/83 (88) 02/23/19 21:30 144 16 119/75 (90) 02/23/19 21:00 149 16 105/77 (86) 02/23/19 21:00 100/61 02/23/19 20:46 144 16 50 50 02/23/19 20:45 159 16 116/88 (97) 02/23/19 20:30 146 16 101/77 (85) 02/23/19 20:15 155 16 108/88 (95) 100 02/23/19 20:00 Endotracheal Tube 02/23/19 20:00 108/88 02/23/19 20:00 50 02/23/19 20:00 138 02/23/19 20:00 98.5 149 16 100/74 (83) 02/23/19 19:45 150 16 102/79 (87) 02/23/19 19:30 147 16 99/71 (80) 02/23/19 19:00 150 16 92/79 (83) 02/23/19 19:00 92/79 02/23/19 18:46 154 16 50 50 02/23/19 18:30 153 18 98/84 (89) 02/23/19 18:00 147 16 101/72 (82) 02/23/19 18:00 101/72 02/23/19 17:30 142 16 102/75 (84) 02/23/19 17:07 149 16 50 02/23/19 17:00 153 17 97/69 (78) 02/23/19 17:00 97/69 02/23/19 16:30 149 16 102/71 (81) 02/23/19 16:00 50 02/23/19 16:00 Endotracheal Tube 02/23/19 16:00 115/91 02/23/19 16:00 98.0 150 16 102/75 (84) 02/23/19 16:00 140 Accucheck: 72 Critical Care - Subjective ROS Limited/Unobtainable: No FI02: 40 Vent Support Breath Rate: 16 Vent Support Mode: AC Vent Tidal Volume: 550 Sputum Amount: Moderate PEEP: 5.0 PIP: 30 Tube Feeding Amount: 40 I&O: Intake and Output 02/23/19 02/24/19 19:00 07:00 Intake Total 1113.44 ml 1318.2625 ml Output Total 880 ml 515 ml Balance 233.44 ml 803.2625 ml Intake Oral 0 ml 0 ml IV Total 1083.44 ml 1038.2625 ml Tube Feeding 250 ml Other 30 ml 30 ml Output Urine Total 430 ml 215 ml Stool Total 450 ml 300 ml # Bowel Movements 2 2 ET-Tube: 7.0 ET Position: 22 Jimmie Puckett MD Feb 24, 2019 15:34
--- NOTE | 2019-02-24 16:00 | NUR ---
NURSE NOTES: Patient continues to occasionally move her head back and forth at this time but does not make eye contact and does not track. Patient continues to have generalized edema with weeping of the arms. Patient continues to move her feet occasionally and has been witnessed lifting her right arm. Will continue to monitor. Patient remains orally intubated with ET tube size 7.0cm with 22cm at the lip line. Ventilator setting AC 16, tidal volume 550, FiO2 50%, and PEEP 5. Patient tolerating setting with SpO2 100% and RR 16. Gastrostomy tube remains patent, asymptomatic, and running vital AF at 50mL/hr with 30mL of residual noted. Will continue to monitor residual. Right internal jugular triple lumen catheter remains patient, asymptomatic and running Levophed at 12mcg/min at this time with BP of 133/113. Left upper arm PICC line remains patent, asymptomatic, and saline locked at this time. Rectal tube remains patent and draining brown liquid stool at this time. Gross remains patent and draining yellow urine at this time with some sediment. Patient bed in low position with bed alarm on and call light in reach at this time. Oral care and repositioning done at this time.
--- NOTE | 2019-02-24 16:23 | NUR ---
NURSE NOTES: Spoke with Dr Puckett when he rounded on the patient. Updated him on patient's condition. Received verbal order to change ventilator setting to tidal volume of 500 and obtain ABG 2 hours after. Orders read back, verified, and placed at this time. Respiratory therapist Chastity notified. Addendum: 02/24/19 at 1632 by Grecia Prieto RN Received order for patient to have weaning determination tomorrow AM if patient is able to remain stable off of Levophed. Order read back, verified, and placed at this time.
--- NOTE | 2019-02-24 16:26 | NUR ---
RESPIRATORY NOTE: Changed Vt to 500ml per Dr. Puckett's order. RN Graciela aware. ABG in 2 hours after changing settings. Pt is tolerating well. Will continue to monitor.
--- NOTE | 2019-02-24 17:53 | NUR ---
NURSE NOTES: Patient continues to move her head back and forth and lifting her right arm slightly. Patient does not follow commands or track with eyes. Patient blood pressure 111/66 at this time on levophed at 12mcg/min. Will continue to monitor and titrate per protocol. Patient bed in low position with bed alarm on and call light in reach at this time. Patient repositioned.
--- NOTE | 2019-02-24 17:59 | General Progress Note ---
Assessment/Plan Status: not improved, deteriorating Assessment/Plan: Assessment - GT dependent - Hepatitis C (+) - Abnormal LFT, ascites - suspect chronic liver disease - Lactic acidosis - Resp failure - OBS / Delirium - Azotemia - Diarrhea - poor PX Recommendations - Check C Diff - lactulose - supportive care - Abx per ID - agree with DNR Subjective Allergies: Coded Allergies: No Known Allergies (Unverified , 02/19/19) Subjective Above noted seen this am in ICU intubated unresponsive Objective Last 24 Hour Vital Signs Date Time Temp Pulse Resp B/P (MAP) Pulse Ox O2 Delivery O2 Flow Rate FiO2 02/24/19 17:30 122 17 95/68 (77) 100 02/24/19 17:00 133 24 102/60 (74) 100 02/24/19 16:30 130 21 108/50 (69) 99 02/24/19 16:26 131 18 40 02/24/19 16:00 40 02/24/19 16:00 119 02/24/19 16:00 111/60 02/24/19 16:00 Endotracheal Tube 02/24/19 16:00 98.5 127 19 111/66 (81) 100 02/24/19 15:30 136 25 105/60 (75) 100 02/24/19 15:18 131 18 40 02/24/19 15:00 114/70 02/24/19 15:00 130 17 114/70 (85) 99 02/24/19 14:30 125 17 104/85 (91) 100 02/24/19 14:00 130 21 113/63 (80) 99 02/24/19 14:00 113/63 02/24/19 13:30 135 21 74/51 (59) 99 02/24/19 13:00 100/86 02/24/19 13:00 143 19 100/86 (91) 100 02/24/19 12:59 148 22 40 02/24/19 12:30 137 18 102/66 (78) 100 02/24/19 12:25 150 02/24/19 12:00 40 02/24/19 12:00 117/101 02/24/19 12:00 149 02/24/19 12:00 98.3 132 22 117/101 (106) 100 02/24/19 12:00 Endotracheal Tube 11/16/19 11:30 133 16 80/64 (69) 100 02/24/19 11:20 134 16 40 02/24/19 11:00 133 18 102/76 (85) 100 02/24/19 11:00 102/76 02/24/19 10:55 128 02/24/19 10:30 142 23 117/64 (81) 100 02/24/19 10:00 117/64 02/24/19 10:00 140 20 94/81 (85) 100 02/24/19 09:30 131 21 104/69 (81) 100 02/24/19 09:15 131 21 104/69 (81) 100 02/24/19 09:00 115/60 02/24/19 09:00 138 22 115/60 (78) 100 02/24/19 08:56 154 22 50 02/24/19 08:45 126 16 105/53 (70) 100 02/24/19 08:30 127 17 69/50 (56) 100 02/24/19 08:30 69/50 02/24/19 08:22 128 25 88/56 (67) 100 02/24/19 08:15 82/64 02/24/19 08:15 131 20 82/64 (70) 100 02/24/19 08:00 88/56 02/24/19 08:00 149 02/24/19 08:00 50 02/24/19 08:00 97.5 130 14 85/52 (63) 100 02/24/19 08:00 Endotracheal Tube 02/24/19 07:25 143 16 50 02/24/19 07:00 137 16 104/57 (73) 100 02/24/19 07:00 104/57 02/24/19 06:30 137 16 105/80 (88) 100 02/24/19 06:00 98.5 139 20 101/69 (80) 100 02/24/19 06:00 105/80 02/24/19 05:37 138 16 96/62 (73) 100 02/24/19 05:30 142 18 88/60 (69) 02/24/19 05:30 98/60 02/24/19 05:19 152 17 114/68 (83) 02/24/19 05:15 110/70 02/24/19 05:00 145 16 111/70 (84) 02/24/19 05:00 114/68 02/24/19 04:55 153 17 50 50 02/24/19 04:40 93/78 02/24/19 04:30 150 18 93/78 (83) 02/24/19 04:00 147 02/24/19 04:00 50 02/24/19 04:00 Endotracheal Tube 02/24/19 04:00 93/78 02/24/19 04:00 140 16 101/76 (84) 02/24/19 03:30 156 17 90/72 (78) 02/24/19 03:14 140 16 50 50 02/24/19 03:00 97/64 02/24/19 03:00 98.7 147 15 99/79 (86) 02/24/19 02:30 144 16 107/75 (86) 02/24/19 02:00 107/75 02/24/19 02:00 141 16 106/80 (89) 02/24/19 01:30 140 16 114/76 (89) 02/24/19 01:02 154 16 50 50 02/24/19 01:00 144 16 112/89 (97) 02/24/19 01:00 114/76 02/24/19 00:40 145 16 106/87 (93) 100 02/24/19 00:30 139 16 114/83 (93) 02/24/19 00:00 50 02/24/19 00:00 128 02/24/19 00:00 Endotracheal Tube 02/24/19 00:00 113/83 02/24/19 00:00 152 17 113/83 (93) 02/23/19 23:30 147 16 99/79 (86) 02/23/19 23:00 161 16 111/80 (90) 02/23/19 23:00 99/79 02/23/19 22:57 148 16 50 50 02/23/19 22:30 148 16 107/77 (87) 02/23/19 22:00 107/77 02/23/19 22:00 144 16 99/83 (88) 02/23/19 21:30 144 16 119/75 (90) 02/23/19 21:00 149 16 105/77 (86) 02/23/19 21:00 100/61 02/23/19 20:46 144 16 50 50 02/23/19 20:45 159 16 116/88 (97) 02/23/19 20:30 146 16 101/77 (85) 02/23/19 20:15 155 16 108/88 (95) 100 02/23/19 20:00 Endotracheal Tube 02/23/19 20:00 108/88 02/23/19 20:00 50 02/23/19 20:00 138 02/23/19 20:00 98.5 149 16 100/74 (83) 02/23/19 19:45 150 16 102/79 (87) 02/23/19 19:30 147 16 99/71 (80) 02/23/19 19:00 150 16 92/79 (83) 02/23/19 19:00 92/79 02/23/19 18:46 154 16 50 50 02/23/19 18:30 153 18 98/84 (89) 02/23/19 18:00 147 16 101/72 (82) 02/23/19 18:00 101/72 Intake and Output 02/23/19 02/24/19 19:00 07:00 Intake Total 1113.44 ml 1318.2625 ml Output Total 880 ml 515 ml Balance 233.44 ml 803.2625 ml Intake Oral 0 ml 0 ml IV Total 1083.44 ml 1038.2625 ml Tube Feeding 250 ml Other 30 ml 30 ml Output Urine Total 430 ml 215 ml Stool Total 450 ml 300 ml # Bowel Movements 2 2 Laboratory Tests 02/23/19 20:50: Lactic Acid Level 2.00 02/24/19 07:38: Lactic Acid Level 2.10H 02/24/19 09:20: Lactic Acid Level 2.10, White Blood Count 14.3H, Red Blood Count 2.78L, Hemoglobin 9.0L, Hematocrit 28.4L, Mean Corpuscular Volume 102H, Mean Corpuscular Hemoglobin 32.4H, Mean Corpuscular Hemoglobin Concent 31.7L, Red Cell Distribution Width 19.5H, Platelet Count 51L, Mean Platelet Volume 7.5, Neutrophils (%) (Auto) , Lymphocytes (%) (Auto) , Monocytes (%) (Auto) , Eosinophils (%) (Auto) , Basophils (%) (Auto) , Differential Total Cells Counted 100, Neutrophils % (Manual) 96H, Lymphocytes % (Manual) 1L, Monocytes % (Manual) 3, Eosinophils % (Manual) 0, Basophils % (Manual) 0, Band Neutrophils 0 , Platelet Estimate DecreasedL, Platelet Morphology Normal, Polychromasia 1+, Hypochromasia 1+, Anisocytosis 2+, Macrocytosis 2+, Ovalocytes Occasional, Sodium Level 132L, Potassium Level 2.8L, Chloride Level 103, Carbon Dioxide Level 24, Anion Gap 7, Blood Urea Nitrogen 43H, Creatinine 2.0H, Estimat Glomerular Filtration Rate , Glucose Level 218H, Calcium Level 7.3L, Total Bilirubin 2.7H, Direct Bilirubin 1.7H, Aspartate Amino Transf (AST/SGOT) 59H, Alanine Aminotransferase (ALT/SGPT) 34, Alkaline Phosphatase 74, Total Protein 5.0L, Albumin 1.8L, Globulin 3.2, Albumin/Globulin Ratio 0.6L 02/24/19 15:34: Lactic Acid Level 2.10H Height (Feet): 5 Height (Inches): 6.00 Weight (Pounds): 155 Objective WDWN NCAT Supple Coarse ronchi RR abd soft ND NT, (+) GT obtunded César Saldana MD Feb 24, 2019 17:59
--- NOTE | 2019-02-24 18:57 | NUR ---
NURSE NOTES: Called Dr Puckett and reported latest ABG result taken 2 hours after tidal volume change of ventilator setting. NO new orders received.
--- NOTE | 2019-02-24 18:59 | NUR ---
RESPIRATORY NOTE: Received pt on AC 16, 500VT, 40%, PEEP +5. Pt intubated w/ ETT 7.0 @ 22cm lipline, secured by anchorfast. Pt asleep/disoriented, minimal response to stimuli. B/S lasha. rhonchi, sxn small amounts of thin/frothy, pale-yellow secretions. No hand restraints as pt unable to move arms. Vent plugged into red outlet, ambubag at bedside. Pt in no apparent distress at this time. Will continue to monitor pt.
--- NOTE | 2019-02-24 19:28 | NUR ---
HAND-OFF: Report given to ANDREINA Giang. Patient vital signs stable. Levophed running at 12mcg/min at this time. Endorsed to follow up.
[2019-02-24] MEDS: Dyna-Hex 2% Top Sol 2oz TOPIC SCH (19:44)
--- NOTE | 2019-02-24 19:45 | NUR ---
NURSE NOTES: PATIENT AWOKE, OPEN EYES, DID NOT FOLLOW COMMANDS, ON ETT TO VENT, AC16/TV500/FIO2 40%/PEEP5, O2 SATURATION 100% NOTED, HEART RATE 120'S/MIN A-FIB, ABDOMEN SOFT, NONTENDER, G TUBE INTACT AND PATENT, ONGOING VITAL AF 1.2 AT 50ML/HR, RESIDUE 30ML NOTED, KEPT HOB 30 DEGREES, RECTAL TUBE INTACT AND PATENT, BROWN COLOR STOOL LOUTED, F/C INTACT AND PATENT, MELLO COLOR URINE OUTED, TLC TO RIGHT IJ AND PICC LINE TO LEFT UPPER ARM INTACT AND PATENT, ONGOING LEVOPHED 12MCG/MIN VIA PICC LINE, ON P200 MATTRESS, MADE LOWER BED POSITION, ON BED ALARM AND LOCKED, PROVIDED CALL LIGHT WITHIN REACH, WILL CONTINUE TO MONITOR.
[2019-02-24] MEDS: Phenylephrine 100 MG in NS 240 ML IV SCH (20:15)
--- NOTE | 2019-02-24 21:50 | NUR ---
NURSE NOTES: REPOSITIONED, SHAKING HEAD WHEN ORAL CARE, WILL CONTINUE TO MONITOR.
[2019-02-25] VITALS (57 sets, daily range): BP systolic 82–129; BP diastolic 47–91
--- NOTE | 2019-02-25 | NUR ---
NURSE NOTES: G TUBE FEEDING TOLERATED, KEPT HOB 30 DEGREES, BOTH ARMS WEEPING STATUS, ELEVATED ARMS, WILL CONTINUE PLAN OF CARE.
--- NOTE | 2019-02-25 02:06 | NUR ---
NURSE NOTES: PATIENT ASLEEP STATUS, NO PAIN OR DISTRESS NOTED, WILL CONTINUE TO MONITOR.
--- NOTE | 2019-02-25 04:00 | NUR ---
NURSE NOTES: MORNING CARE AND ORAL CARE WAS DONE, NO RESISTANCE TO CARE.
[2019-02-25] MEDS: Norepinephrine Bitartrate 16 MG in D5W 500ml 484 ML IV SCH ×2 (04:28→21:02)
[2019-02-25 04:44] LABS: HEMATOCRIT 27.2 % (37.0-47.0); HEMOGLOBIN 8.7 G/DL (12.0-16.0); MEAN CORPUSCULAR VOLUME 103 FL (80-99); PLATELET COUNT 54 K/UL (150-450); RED BLOOD COUNT 2.63 M/UL (4.20-5.40); WHITE BLOOD COUNT 17.1 K/UL (4.8-10.8)
[2019-02-25 05:32] LABS: ALANINE AMINOTRANSFERASE 41 U/L (12-78); ALBUMIN 1.9 G/DL (3.4-5.0); ALBUMIN/GLOBULIN RATIO 0.6 (1.0-2.7); ALKALINE PHOSPHATASE 107 U/L (46-116); ANION GAP 9 mmol/L (5-15); ASPARTATE AMINO TRANSFERASE 59 U/L (15-37); BILIRUBIN,TOTAL 2.1 MG/DL (0.2-1.0); BLOOD UREA NITROGEN 42 mg/dL (7-18); CALCIUM 7.7 MG/DL (8.5-10.1); CARBON DIOXIDE 24 MMOL/L (21-32); CHLORIDE 108 MMOL/L (98-107); CREATININE 1.9 MG/DL (0.55-1.30); PHOSPHORUS 2.1 MG/DL (2.5-4.9); SODIUM 142 MMOL/L (136-145)
[2019-02-25 05:38] LABS: POTASSIUM 2.7 MMOL/L (3.5-5.1)
[2019-02-25 05:43] LABS: BILIRUBIN,DIRECT 1.4 MG/DL (0.0-0.3)
--- NOTE | 2019-02-25 06:10 | NUR ---
NURSE NOTES: CALLED DR. SINGLETARY REGARDING K LEVEL 2.7 THAT MD WAS AWARE AND RECEIVED NEW ORDER.
--- NOTE | 2019-02-25 07:02 | NUR ---
RESPIRATORY NOTE: received pt orally intubated with ETT 7.0 place 22cm at the lip, secured via anchor fast. no appearances of any redness or skin wounds. pt on current vent settings without any resp distress. current spo2 100% with HR 117. bilateral rhonchi breath sounds upon auscultations in all lunch tubbs. small amounts of thick, fraser-like secretions when suctioned. will attempt to wean followed by MD orders. alarms are set appropriately with ambu bag at bedside. will cont to monitor throughout the day
--- NOTE | 2019-02-25 07:32 | NUR ---
HAND-OFF: Report given to ANDREINA PANTOJA.
--- NOTE | 2019-02-25 07:33 | NUR ---
NURSE NOTES: Late entry; PT and report received from Rahat RN; PT received intubated ETTube 7.0; 22cm @ R-lip; AC 16; TV 500; FiO2 40%; peep 5; orders for weaning when Levophed is off, but received with Levophed double concentration infusing at 10mcg/min. PT opens eyes, does not respond to questions, just moved head side to side, gtube feeding of Vital AF @ 50cc/hr running no residual noted on morning assessments, PT has bilateral arms weeping; received with R-IJ TLC and L-upper arm PICC; will need to follow up with MD on continuing with R-IJ TLC or D/C. PT has rectal tube and martinez, patent intact draining well, PT was given lactulose so Cdiff toxin stool sample is not being collected. Received PT running 1st ordered bag of ordered Mg. Will continue to monitor PT, and follow through with plan of care.
--- NOTE | 2019-02-25 07:58 | General Progress Note ---
Assessment/Plan Problem List: (1) Septic shock ICD Codes: A41.9 - Sepsis, unspecified organism; R65.21 - Severe sepsis with septic shock SNOMED: 75238343 (2) UTI (urinary tract infection) ICD Codes: N39.0 - Urinary tract infection, site not specified SNOMED: 38673268 Qualifiers: Qualified Codes: N39.0 - Urinary tract infection, site not specified (3) Renal failure ICD Codes: N19 - Unspecified kidney failure SNOMED: 24394475 Qualifiers: Qualified Codes: N17.9 - Acute kidney failure, unspecified (4) Abdominal pain ICD Codes: R10.9 - Unspecified abdominal pain SNOMED: 54066119 Qualifiers: Qualified Codes: R10.32 - Left lower quadrant pain (5) Severe sepsis ICD Codes: A41.9 - Sepsis, unspecified organism; R65.20 - Severe sepsis without septic shock SNOMED: 67262898 (6) Dehydration ICD Codes: E86.0 - Dehydration SNOMED: 17219954 (7) Atrial fibrillation with rapid ventricular response ICD Codes: I48.91 - Unspecified atrial fibrillation SNOMED: 428047682910703 Status: stable, not improved, deteriorating Assessment/Plan: cont supportive care pressors- wean as able ivf dcd replace lytes iv abx per id tube feeds stress dose steroids prognosis grim ethics eval - ?DNR code would likely be futile Subjective ROS Limited/Unobtainable: Yes Constitutional: Reports: malaise, weakness HEENT: Reports: no symptoms Cardiovascular: Reports: no symptoms Respiratory: Reports: shortness of breath Gastrointestinal/Abdominal: Reports: diarrhea Genitourinary: Reports: no symptoms Neurologic/Psychiatric: Reports: pre-existing deficit Endocrine: Reports: no symptoms Hematologic/Lymphatic: Reports: anemia Allergies: Coded Allergies: No Known Allergies (Unverified , 02/19/19) All Systems: reviewed and negative except above Subjective remains intubated on pressors. slightly less pressor requirements- levo at 11. poor uop. multiple iv abx. labs noted. Objective Last 24 Hour Vital Signs Date Time Temp Pulse Resp B/P (MAP) Pulse Ox O2 Delivery O2 Flow Rate FiO2 02/25/19 07:01 131 16 40 02/25/19 07:00 118 16 102/67 (79) 100 11/17/19 07:00 118/65 02/25/19 06:58 114 16 100 Mechanical Ventilator 40 02/25/19 06:30 122 17 109/60 (76) 100 02/25/19 06:00 112/76 02/25/19 06:00 123 21 112/76 (88) 100 02/25/19 05:30 117 18 116/62 (80) 100 02/25/19 05:06 123 18 40 02/25/19 05:00 118 17 121/69 (86) 100 02/25/19 05:00 121/69 02/25/19 04:30 118 17 114/66 (82) 100 02/25/19 04:28 125/70 02/25/19 04:00 98.6 123 16 108/61 (77) 100 02/25/19 04:00 40 02/25/19 04:00 108/61 02/25/19 04:00 Endotracheal Tube 02/25/19 03:30 118 02/25/19 03:30 121 17 122/72 (89) 100 02/25/19 03:03 124 17 40 02/25/19 03:00 123/66 02/25/19 03:00 125 18 123/66 (85) 100 02/25/19 02:30 123 16 124/75 (91) 100 02/25/19 02:00 119 16 117/67 (84) 100 02/25/19 02:00 117/67 02/25/19 01:30 120 16 116/73 (87) 100 02/25/19 01:00 123/79 02/25/19 01:00 127 21 40 02/25/19 01:00 127 18 123/79 (94) 100 02/25/19 00:30 121 16 125/66 (85) 100 02/25/19 00:00 40 02/25/19 00:00 111/66 02/25/19 00:00 98.9 119 17 111/66 (81) 100 02/25/19 00:00 Endotracheal Tube 02/24/19 23:30 127 20 130/65 (86) 100 02/24/19 23:22 132 02/24/19 23:00 118/69 02/24/19 23:00 126 19 118/69 (85) 100 02/24/19 22:50 130 21 40 02/24/19 22:30 129 19 117/80 (92) 100 02/24/19 22:00 112/68 02/24/19 22:00 125 18 112/68 (83) 100 02/24/19 21:30 129 22 100/78 (85) 100 02/24/19 21:03 140 21 40 02/24/19 21:00 100/76 02/24/19 21:00 132 21 100/76 (84) 100 02/24/19 20:30 126 17 110/64 (79) 100 02/24/19 20:15 130 123/65 02/24/19 20:00 98.2 122 18 104/67 (79) 100 02/24/19 20:00 104/67 02/24/19 20:00 Endotracheal Tube 02/24/19 20:00 40 02/24/19 19:30 126 19 110/75 (87) 100 02/24/19 19:08 135 02/24/19 19:00 135 24 117/65 (82) 99 02/24/19 19:00 117/65 02/24/19 18:56 135 21 40 02/24/19 18:30 124 18 94/45 (61) 100 02/24/19 18:00 124 20 112/64 (80) 100 02/24/19 18:00 112/64 02/24/19 17:30 122 17 95/68 (77) 100 02/24/19 17:00 111/66 02/24/19 17:00 133 24 102/60 (74) 100 02/24/19 16:30 130 21 108/50 (69) 99 02/24/19 16:26 131 18 40 02/24/19 16:00 40 02/24/19 16:00 119 02/24/19 16:00 111/60 02/24/19 16:00 Endotracheal Tube 02/24/19 16:00 98.5 127 19 111/66 (81) 100 02/24/19 15:30 136 25 105/60 (75) 100 02/24/19 15:18 131 18 40 02/24/19 15:00 114/70 02/24/19 15:00 130 17 114/70 (85) 99 02/24/19 14:30 125 17 104/85 (91) 100 02/24/19 14:00 130 21 113/63 (80) 99 02/24/19 14:00 113/63 02/24/19 13:30 135 21 74/51 (59) 99 02/24/19 13:00 100/86 02/24/19 13:00 143 19 100/86 (91) 100 02/24/19 12:59 148 22 40 02/24/19 12:30 137 18 102/66 (78) 100 02/24/19 12:25 150 02/24/19 12:00 40 02/24/19 12:00 117/101 02/24/19 12:00 149 02/24/19 12:00 98.3 132 22 117/101 (106) 100 02/24/19 12:00 Endotracheal Tube 02/24/19 11:30 133 16 80/64 (69) 100 02/24/19 11:20 134 16 40 02/24/19 11:00 133 18 102/76 (85) 100 02/24/19 11:00 102/76 02/24/19 10:55 128 02/24/19 10:30 142 23 117/64 (81) 100 02/24/19 10:00 117/64 02/24/19 10:00 140 20 94/81 (85) 100 02/24/19 09:30 131 21 104/69 (81) 100 02/24/19 09:15 131 21 104/69 (81) 100 02/24/19 09:00 115/60 02/24/19 09:00 138 22 115/60 (78) 100 02/24/19 08:56 154 22 50 02/24/19 08:45 126 16 105/53 (70) 100 02/24/19 08:30 127 17 69/50 (56) 100 02/24/19 08:30 69/50 02/24/19 08:22 128 25 88/56 (67) 100 02/24/19 08:15 82/64 02/24/19 08:15 131 20 82/64 (70) 100 02/24/19 08:00 88/56 02/24/19 08:00 149 02/24/19 08:00 50 02/24/19 08:00 97.5 130 14 85/52 (63) 100 02/24/19 08:00 Endotracheal Tube Intake and Output 02/24/19 02/25/19 19:00 07:00 Intake Total 1281.5625 ml 1076.25 ml Output Total 760 ml 1260 ml Balance 521.5625 ml -183.75 ml IV Total 741.5625 ml 376.25 ml Tube Feeding 510 ml 600 ml Other 30 ml 100 ml Output Urine Total 310 ml 610 ml Stool Total 450 ml 650 ml # Bowel Movements 3 Laboratory Tests 02/24/19 09:20: White Blood Count 14.3H, Red Blood Count 2.78L, Hemoglobin 9.0L, Hematocrit 28.4L, Mean Corpuscular Volume 102H, Mean Corpuscular Hemoglobin 32.4H, Mean Corpuscular Hemoglobin Concent 31.7L, Red Cell Distribution Width 19.5H, Platelet Count 51L, Mean Platelet Volume 7.5, Neutrophils (%) (Auto) , Lymphocytes (%) (Auto) , Monocytes (%) (Auto) , Eosinophils (%) (Auto) , Basophils (%) (Auto) , Differential Total Cells Counted 100, Neutrophils % ( Manual) 96H, Lymphocytes % (Manual) 1L, Monocytes % (Manual) 3, Eosinophils % ( Manual) 0, Basophils % (Manual) 0, Band Neutrophils 0, Platelet Estimate DecreasedL, Platelet Morphology Normal, Polychromasia 1+, Hypochromasia 1+, Anisocytosis 2+, Macrocytosis 2+, Ovalocytes Occasional, Sodium Level 132L, Potassium Level 2.8L, Chloride Level 103, Carbon Dioxide Level 24, Anion Gap 7, Blood Urea Nitrogen 43H, Creatinine 2.0H, Estimat Glomerular Filtration Rate , Glucose Level 218H, Lactic Acid Level 2.10, Calcium Level 7.3L, Total Bilirubin 2.7H, Direct Bilirubin 1.7H, Aspartate Amino Transf (AST/SGOT) 59H, Alanine Aminotransferase (ALT/SGPT) 34, Alkaline Phosphatase 74, Total Protein 5.0L, Albumin 1.8L, Globulin 3.2, Albumin/Globulin Ratio 0.6L 02/24/19 15:34: Lactic Acid Level 2.10H 02/24/19 18:40: Arterial Blood pH 7.484H, Arterial Blood Partial Pressure CO2 26.7L, Arterial Blood Partial Pressure O2 105.8H, Arterial Blood HCO3 19.6L, Arterial Blood Oxygen Saturation 97.5, Arterial Blood Base Excess -2.9L, Melchor Test Positive 02/24/19 20:43: Lactic Acid Level 2.00 02/25/19 04:20: White Blood Count 17.1H, Red Blood Count 2.63L, Hemoglobin 8.7L, Hematocrit 27.2L, Mean Corpuscular Volume 103H, Mean Corpuscular Hemoglobin 33.0H, Mean Corpuscular Hemoglobin Concent 32.0, Red Cell Distribution Width 19.0H, Platelet Count 54L, Mean Platelet Volume 7.7, Neutrophils (%) (Auto) , Lymphocytes (%) (Auto) , Monocytes (%) (Auto) , Eosinophils (%) (Auto) , Basophils (%) (Auto) , Neutrophils % (Manual) [Pending], Lymphocytes % (Manual) [Pending], Platelet Estimate [Pending], Platelet Morphology [Pending], Sodium Level 142#, Potassium Level 2.7*L, Chloride Level 108H, Carbon Dioxide Level 24 , Anion Gap 9, Blood Urea Nitrogen 42H, Creatinine 1.9H, Estimat Glomerular Filtration Rate , Glucose Level 258H, Lactic Acid Level 2.40H, Calcium Level 7.7L, Phosphorus Level 2.1L, Magnesium Level 1.6L, Total Bilirubin 2.1H, Direct Bilirubin 1.4H, Aspartate Amino Transf (AST/SGOT) 59H, Alanine Aminotransferase (ALT/SGPT) 41, Alkaline Phosphatase 107, Troponin I 0.164H, C-Reactive Protein, Quantitative 3.7H, Pro-B-Type Natriuretic Peptide > 46591J, Total Protein 5.2L, Albumin 1.9L, Globulin 3.3, Albumin/Globulin Ratio 0.6L, Digoxin Level 0.4L Height (Feet): 5 Height (Inches): 6.00 Weight (Pounds): 161 Objective General Appearance: WD/WN, confused. more responsive, orally intubated Neck: supple Cardiovascular: irregularly irregular Respiratory/Chest: chest wall non-tender, lungs clear, normal breath sounds, no respiratory distress Abdomen: normal bowel sounds, non tender, soft, no organomegaly Edema: no edema noted Arm (L), no edema noted Arm (R), no edema noted Leg (L), no edema noted Leg (R), no edema noted Pedal (L), no edema noted Pedal (R), no edema noted Generalized Neurologic: disoriented Mitchel Reis MD Feb 25, 2019 07:58
[2019-02-25] MEDS: Piperacillin/Tazobactam 3.375 GM in NS 110 ML IVPB SCH (08:44)
[2019-02-25] MEDS: Lactulose 20gm/30ml UDC ORAL SCH (08:46)
[2019-02-25] MEDS: Pantoprazole Inj IVP SCH ×2 (08:47→20:38)
[2019-02-25] MEDS: Fluconazole 100mg tab ORAL SCH (08:47)
[2019-02-25] MEDS ORDERED: Potassium Phosphate 30 MM in NS 275 ML IV ONE (10:00)
--- NOTE | 2019-02-25 10:11 | Nephrology Progress Note ---
Assessment/Plan Problem List: (1) Acute respiratory failure (2) Septic shock (3) Renal failure (4) Atrial fibrillation with rapid ventricular response (5) Cardiomyopathy Assessment Renal failure - ? Acute on Chronic, Partly dehydration Septic Shock UTI AT Fib with FVR h/o DM, proteinuria , HypoAlbuminemia Plan one dose dig K and Mag supplement as needed stop NS now intubated On 2 pressors max- BP remains low Poor prognosis - remains full code for now slow Hydrate 2D echo EjFx 40% antibiotics monitor renal parameters avoid nephrotoxics per orders Subjective ROS Limited/Unobtainable: Yes Objective Objective Last 24 Hour Vital Signs Date Time Temp Pulse Resp B/P (MAP) Pulse Ox O2 Delivery O2 Flow Rate FiO2 02/25/19 09:30 112 16 103/79 (87) 100 02/25/19 09:00 113/72 02/25/19 09:00 117 16 112/67 (82) 100 02/25/19 08:59 119 16 40 02/25/19 08:30 121 18 121/69 (86) 100 02/25/19 08:00 40 02/25/19 08:00 99.3 114 16 120/59 (79) 100 02/25/19 08:00 112/78 02/25/19 08:00 114 02/25/19 08:00 Endotracheal Tube 02/25/19 07:30 117 16 110/67 (81) 100 02/25/19 07:01 131 16 40 02/25/19 07:00 118 16 102/67 (79) 100 02/25/19 07:00 118/65 02/25/19 06:58 114 16 100 Mechanical Ventilator 40 02/25/19 06:30 122 17 109/60 (76) 100 02/25/19 06:00 112/76 02/25/19 06:00 123 21 112/76 (88) 100 02/25/19 05:30 117 18 116/62 (80) 100 02/25/19 05:06 123 18 40 02/25/19 05:00 118 17 121/69 (86) 100 02/25/19 05:00 121/69 02/25/19 04:30 118 17 114/66 (82) 100 02/25/19 04:28 125/70 02/25/19 04:00 98.6 123 16 108/61 (77) 100 02/25/19 04:00 40 02/25/19 04:00 108/61 02/25/19 04:00 Endotracheal Tube 02/25/19 03:30 118 02/25/19 03:30 121 17 122/72 (89) 100 02/25/19 03:03 124 17 40 02/25/19 03:00 123/66 02/25/19 03:00 125 18 123/66 (85) 100 02/25/19 02:30 123 16 124/75 (91) 100 02/25/19 02:00 119 16 117/67 (84) 100 02/25/19 02:00 117/67 02/25/19 01:30 120 16 116/73 (87) 100 02/25/19 01:00 123/79 02/25/19 01:00 127 21 40 02/25/19 01:00 127 18 123/79 (94) 100 02/25/19 00:30 121 16 125/66 (85) 100 02/25/19 00:00 40 02/25/19 00:00 111/66 02/25/19 00:00 98.9 119 17 111/66 (81) 100 02/25/19 00:00 Endotracheal Tube 02/24/19 23:30 127 20 130/65 (86) 100 02/24/19 23:22 132 02/24/19 23:00 118/69 02/24/19 23:00 126 19 118/69 (85) 100 02/24/19 22:50 130 21 40 02/24/19 22:30 129 19 117/80 (92) 100 02/24/19 22:00 112/68 02/24/19 22:00 125 18 112/68 (83) 100 02/24/19 21:30 129 22 100/78 (85) 100 02/24/19 21:03 140 21 40 02/24/19 21:00 100/76 02/24/19 21:00 132 21 100/76 (84) 100 02/24/19 20:30 126 17 110/64 (79) 100 02/24/19 20:15 130 123/65 02/24/19 20:00 98.2 122 18 104/67 (79) 100 02/24/19 20:00 104/67 02/24/19 20:00 Endotracheal Tube 02/24/19 20:00 40 02/24/19 19:30 126 19 110/75 (87) 100 02/24/19 19:08 135 02/24/19 19:00 135 24 117/65 (82) 99 02/24/19 19:00 117/65 02/24/19 18:56 135 21 40 02/24/19 18:30 124 18 94/45 (61) 100 02/24/19 18:00 124 20 112/64 (80) 100 02/24/19 18:00 112/64 02/24/19 17:30 122 17 95/68 (77) 100 02/24/19 17:00 111/66 02/24/19 17:00 133 24 102/60 (74) 100 02/24/19 16:30 130 21 108/50 (69) 99 02/24/19 16:26 131 18 40 02/24/19 16:00 40 02/24/19 16:00 119 02/24/19 16:00 111/60 02/24/19 16:00 Endotracheal Tube 02/24/19 16:00 98.5 127 19 111/66 (81) 100 02/24/19 15:30 136 25 105/60 (75) 100 02/24/19 15:18 131 18 40 02/24/19 15:00 114/70 02/24/19 15:00 130 17 114/70 (85) 99 02/24/19 14:30 125 17 104/85 (91) 100 02/24/19 14:00 130 21 113/63 (80) 99 02/24/19 14:00 113/63 02/24/19 13:30 135 21 74/51 (59) 99 02/24/19 13:00 100/86 02/24/19 13:00 143 19 100/86 (91) 100 02/24/19 12:59 148 22 40 02/24/19 12:30 137 18 102/66 (78) 100 02/24/19 12:25 150 02/24/19 12:00 40 02/24/19 12:00 117/101 02/24/19 12:00 149 02/24/19 12:00 98.3 132 22 117/101 (106) 100 02/24/19 12:00 Endotracheal Tube 11/16/19 11:30 133 16 80/64 (69) 100 02/24/19 11:20 134 16 40 02/24/19 11:00 133 18 102/76 (85) 100 02/24/19 11:00 102/76 02/24/19 10:55 128 02/24/19 10:30 142 23 117/64 (81) 100 Intake and Output 02/24/19 02/25/19 18:59 06:59 Intake Total 1300.3125 ml 980.0 ml Output Total 755 ml 1185 ml Balance 545.3125 ml -205.0 ml IV Total 780.3125 ml 380.0 ml Tube Feeding 490 ml 600 ml Other 30 ml Output Urine Total 305 ml 535 ml Stool Total 450 ml 650 ml # Bowel Movements 3 Laboratory Tests 02/24/19 15:34: Lactic Acid Level 2.10H 02/24/19 18:40: Arterial Blood pH 7.484H, Arterial Blood Partial Pressure CO2 26.7L, Arterial Blood Partial Pressure O2 105.8H, Arterial Blood HCO3 19.6L, Arterial Blood Oxygen Saturation 97.5, Arterial Blood Base Excess -2.9L, Melchor Test Positive 02/24/19 20:43: Lactic Acid Level 2.00 02/25/19 04:20: Lactic Acid Level 2.40H, White Blood Count 17.1H, Red Blood Count 2.63L, Hemoglobin 8.7L, Hematocrit 27.2L, Mean Corpuscular Volume 103H, Mean Corpuscular Hemoglobin 33.0H, Mean Corpuscular Hemoglobin Concent 32.0, Red Cell Distribution Width 19.0H, Platelet Count 54L, Mean Platelet Volume 7.7, Neutrophils (%) (Auto) , Lymphocytes (%) (Auto) , Monocytes (%) (Auto) , Eosinophils (%) (Auto) , Basophils (%) (Auto) , Differential Total Cells Counted 100, Neutrophils % (Manual) 94H, Lymphocytes % (Manual) 2L, Monocytes % (Manual) 4, Eosinophils % (Manual) 0, Basophils % (Manual) 0, Band Neutrophils 0 , Platelet Estimate DecreasedL, Platelet Morphology Normal, Polychromasia 1+, Hypochromasia 1+, Anisocytosis 2+, Macrocytosis 2+, Sodium Level 142#, Potassium Level 2.7*L, Chloride Level 108H, Carbon Dioxide Level 24, Anion Gap 9 , Blood Urea Nitrogen 42H, Creatinine 1.9H, Estimat Glomerular Filtration Rate , Glucose Level 258H, Calcium Level 7.7L, Phosphorus Level 2.1L, Magnesium Level 1.6L, Total Bilirubin 2.1H, Direct Bilirubin 1.4H, Aspartate Amino Transf (AST/SGOT) 59H, Alanine Aminotransferase (ALT/SGPT) 41, Alkaline Phosphatase 107 , Troponin I 0.164H, C-Reactive Protein, Quantitative 3.7H, Pro-B-Type Natriuretic Peptide > 96523H, Total Protein 5.2L, Albumin 1.9L, Globulin 3.3, Albumin/Globulin Ratio 0.6L, Digoxin Level 0.4L Height (Feet): 5 Height (Inches): 6.00 Weight (Pounds): 161 General Appearance: no apparent distress EENT: other - vented Cardiovascular: tachycardia Respiratory/Chest: decreased breath sounds Abdomen: distended Jt Louis MD Feb 25, 2019 10:11
[2019-02-25] MEDS ORDERED: Digoxin 0.5mg/2ml Inj IVP SCH (10:15)
[2019-02-25 10:56] LABS: INR 1.6 (0.9-1.1)
[2019-02-25] MEDS ORDERED: NS 275ml ONE (11:01)
[2019-02-25] MEDS ORDERED: Tubing IV Secondary IV ONE (11:01)
--- NOTE | 2019-02-25 11:13 | Surgery Progress Note ---
Surgery Progress Note Subjective Additional Comments ill appearing in ICU labs noted exam stable weaning Objective Last 24 Hour Vital Signs Date Time Temp Pulse Resp B/P (MAP) Pulse Ox O2 Delivery O2 Flow Rate FiO2 02/25/19 11:00 108 16 115/71 (86) 100 02/25/19 11:00 115/71 02/25/19 10:46 117 16 40 02/25/19 10:39 112 02/25/19 10:30 112 16 118/74 (89) 100 02/25/19 10:00 110/65 02/25/19 10:00 115 16 122/59 (80) 100 02/25/19 09:30 112 16 103/79 (87) 100 02/25/19 09:00 113/72 02/25/19 09:00 117 16 112/67 (82) 100 02/25/19 08:59 119 16 40 02/25/19 08:30 121 18 121/69 (86) 100 02/25/19 08:00 40 02/25/19 08:00 99.3 114 16 120/59 (79) 100 02/25/19 08:00 112/78 02/25/19 08:00 114 02/25/19 08:00 Endotracheal Tube 02/25/19 07:30 117 16 110/67 (81) 100 02/25/19 07:01 131 16 40 02/25/19 07:00 118 16 102/67 (79) 100 02/25/19 07:00 118/65 02/25/19 06:58 114 16 100 Mechanical Ventilator 40 02/25/19 06:30 122 17 109/60 (76) 100 02/25/19 06:00 112/76 02/25/19 06:00 123 21 112/76 (88) 100 02/25/19 05:30 117 18 116/62 (80) 100 02/25/19 05:06 123 18 40 02/25/19 05:00 118 17 121/69 (86) 100 02/25/19 05:00 121/69 02/25/19 04:30 118 17 114/66 (82) 100 02/25/19 04:28 125/70 02/25/19 04:00 98.6 123 16 108/61 (77) 100 02/25/19 04:00 40 02/25/19 04:00 108/61 02/25/19 04:00 Endotracheal Tube 02/25/19 03:30 118 02/25/19 03:30 121 17 122/72 (89) 100 02/25/19 03:03 124 17 40 02/25/19 03:00 123/66 02/25/19 03:00 125 18 123/66 (85) 100 02/25/19 02:30 123 16 124/75 (91) 100 02/25/19 02:00 119 16 117/67 (84) 100 02/25/19 02:00 117/67 02/25/19 01:30 120 16 116/73 (87) 100 02/25/19 01:00 123/79 02/25/19 01:00 127 21 40 02/25/19 01:00 127 18 123/79 (94) 100 02/25/19 00:30 121 16 125/66 (85) 100 02/25/19 00:00 40 02/25/19 00:00 111/66 02/25/19 00:00 98.9 119 17 111/66 (81) 100 02/25/19 00:00 Endotracheal Tube 02/24/19 23:30 127 20 130/65 (86) 100 02/24/19 23:22 132 02/24/19 23:00 118/69 02/24/19 23:00 126 19 118/69 (85) 100 02/24/19 22:50 130 21 40 02/24/19 22:30 129 19 117/80 (92) 100 02/24/19 22:00 112/68 02/24/19 22:00 125 18 112/68 (83) 100 02/24/19 21:30 129 22 100/78 (85) 100 02/24/19 21:03 140 21 40 02/24/19 21:00 100/76 02/24/19 21:00 132 21 100/76 (84) 100 02/24/19 20:30 126 17 110/64 (79) 100 02/24/19 20:15 130 123/65 02/24/19 20:00 98.2 122 18 104/67 (79) 100 02/24/19 20:00 104/67 02/24/19 20:00 Endotracheal Tube 02/24/19 20:00 40 02/24/19 19:30 126 19 110/75 (87) 100 02/24/19 19:08 135 02/24/19 19:00 135 24 117/65 (82) 99 02/24/19 19:00 117/65 02/24/19 18:56 135 21 40 02/24/19 18:30 124 18 94/45 (61) 100 02/24/19 18:00 124 20 112/64 (80) 100 02/24/19 18:00 112/64 02/24/19 17:30 122 17 95/68 (77) 100 02/24/19 17:00 111/66 02/24/19 17:00 133 24 102/60 (74) 100 02/24/19 16:30 130 21 108/50 (69) 99 02/24/19 16:26 131 18 40 02/24/19 16:00 40 02/24/19 16:00 119 02/24/19 16:00 111/60 02/24/19 16:00 Endotracheal Tube 02/24/19 16:00 98.5 127 19 111/66 (81) 100 02/24/19 15:30 136 25 105/60 (75) 100 02/24/19 15:18 131 18 40 02/24/19 15:00 114/70 02/24/19 15:00 130 17 114/70 (85) 99 02/24/19 14:30 125 17 104/85 (91) 100 02/24/19 14:00 130 21 113/63 (80) 99 02/24/19 14:00 113/63 02/24/19 13:30 135 21 74/51 (59) 99 02/24/19 13:00 100/86 02/24/19 13:00 143 19 100/86 (91) 100 02/24/19 12:59 148 22 40 02/24/19 12:30 137 18 102/66 (78) 100 02/24/19 12:25 150 02/24/19 12:00 40 02/24/19 12:00 117/101 02/24/19 12:00 149 02/24/19 12:00 98.3 132 22 117/101 (106) 100 02/24/19 12:00 Endotracheal Tube 02/24/19 11:30 133 16 80/64 (69) 100 02/24/19 11:20 134 16 40 I&O Intake and Output 02/24/19 02/25/19 19:00 07:00 Intake Total 1281.5625 ml 1076.25 ml Output Total 760 ml 1260 ml Balance 521.5625 ml -183.75 ml IV Total 741.5625 ml 376.25 ml Tube Feeding 510 ml 600 ml Other 30 ml 100 ml Output Urine Total 310 ml 610 ml Stool Total 450 ml 650 ml # Bowel Movements 3 Dressing: saturated Wound: other Drains: other Cardiovascular: RSR Respiratory: decreased breath sounds Abdomen: soft, decreased bowel sounds Extremities: cyanosis, other Laboratory Tests Test 02/24/19 15:34 02/24/19 18:40 02/24/19 20:43 02/25/19 04:20 Lactic Acid Level 2.10 mmol/L (0.4-2.0) H 2.00 mmol/L (0.4-2.0) 2.40 mmol/L (0.4-2.0) H Arterial Blood pH 7.484 (7.350-7.450) Arterial Blood Partial Pressure CO2 26.7 mmHg (35.0-45.0) L Arterial Blood Partial Pressure O2 105.8 mmHg (75.0-100.0) H Arterial Blood HCO3 19.6 mmol/L (22.0-26.0) L Arterial Blood Oxygen Saturation 97.5 % (95-100) Arterial Blood Base Excess -2.9 (-2-2) L Melchor Test Positive White Blood Count 17.1 K/UL (4.8-10.8) H Red Blood Count 2.63 M/UL (4.20-5.40) L Hemoglobin 8.7 G/DL (12.0-16.0) L Hematocrit 27.2 % (37.0-47.0) L Mean Corpuscular Volume 103 FL (80-99) H Mean Corpuscular Hemoglobin 33.0 PG (27.0-31.0) H Mean Corpuscular Hemoglobin Concent 32.0 G/DL (32.0-36.0) Red Cell Distribution Width 19.0 % (11.6-14.8) H Platelet Count 54 K/UL (150-450) L Mean Platelet Volume 7.7 FL (6.5-10.1) Neutrophils (%) (Auto) % (45.0-75.0) Lymphocytes (%) (Auto) % (20.0-45.0) Monocytes (%) (Auto) % (1.0-10.0) Eosinophils (%) (Auto) % (0.0-3.0) Basophils (%) (Auto) % (0.0-2.0) Differential Total Cells Counted 100 Neutrophils % (Manual) 94 % (45-75) H Lymphocytes % (Manual) 2 % (20-45) L Monocytes % (Manual) 4 % (1-10) Eosinophils % (Manual) 0 % (0-3) Basophils % (Manual) 0 % (0-2) Band Neutrophils 0 % (0-8) Platelet Estimate Decreased L Platelet Morphology Normal Polychromasia 1+ Hypochromasia 1+ Anisocytosis 2+ Macrocytosis 2+ Sodium Level 142 MMOL/L (136-145) # Potassium Level 2.7 MMOL/L (3.5-5.1) *L Chloride Level 108 MMOL/L (98-107) H Carbon Dioxide Level 24 MMOL/L (21-32) Anion Gap 9 mmol/L (5-15) Blood Urea Nitrogen 42 mg/dL (7-18) H Creatinine 1.9 MG/DL (0.55-1.30) H Estimat Glomerular Filtration Rate mL/min (>60) Glucose Level 258 MG/DL (74-106) H Calcium Level 7.7 MG/DL (8.5-10.1) L Phosphorus Level 2.1 MG/DL (2.5-4.9) L Magnesium Level 1.6 MG/DL (1.8-2.4) L Total Bilirubin 2.1 MG/DL (0.2-1.0) H Direct Bilirubin 1.4 MG/DL (0.0-0.3) H Aspartate Amino Transf (AST/SGOT) 59 U/L (15-37) H Alanine Aminotransferase (ALT/SGPT) 41 U/L (12-78) Alkaline Phosphatase 107 U/L (46-116) Troponin I 0.164 ng/mL (0.000-0.056) C-Reactive Protein, Quantitative 3.7 mg/dL (0.00-0.90) H Pro-B-Type Natriuretic Peptide > 15008 pg/mL (0-125) H Total Protein 5.2 G/DL (6.4-8.2) L Albumin 1.9 G/DL (3.4-5.0) L Globulin 3.3 g/dL Albumin/Globulin Ratio 0.6 (1.0-2.7) L Digoxin Level 0.4 NG/ML (0.9-2.0) L Test 02/25/19 10:05 Prothrombin Time 16.2 SEC (9.30-11.50) H Prothromb Time International Ratio 1.6 (0.9-1.1) H Activated Partial Thromboplast Time 41 SEC (23-33) H Lactic Acid Level 2.00 mmol/L (0.4-2.0) Plan Problems: (1) Septic shock Assessment & Plan: 78-year-old female in septic shock in the intensive care unit on pressors. Leukocytosis, anemia, abnormal labs. Tachycardic. On respiratory support. On examination patient identified to have slowed capillary refill in the distal extremities. Patient furthermore identified to have a weeping wound in the right great toe. Patient is currently very ill and septic and requiring pressors. Unfortunately given her medical condition comorbidities and history there is potential for distal vasoconstriction and potentially even necrosis of the distal aspects but further life-saving measures pressors currently required and necessary and indicated. We will continue to monitor extremities and evaluate them. Will wean off pressors as possible. Lactic acidosis improving. Continue IV antibiotics Wean pressors Appreciate ICU care and management We will follow with recommendations (2) Abdominal pain Assessment & Plan: Chronic liver disease/cirrhosis with signs of portal hypertension including moderate ascites and hepatofugal flow in the portal vein. Gallbladder wall edema nonspecific Bilateral pleural effusions. Medical renal disease Findings: There is extensive artifact from the patient's arms limiting evaluation. Oral contrast was given. Gastrostomy tube is noted in good position. There are small bilateral pleural effusions present with adjacent ill-defined parenchymal density either atelectasis or pneumonia. Correlate clinically. Small pericardial effusion is present and there is generalized cardiomegaly present. Hiatal hernia noted. Aorta and coronary artery calcification present. Mild ascites is demonstrated. No compelling evidence for bowel obstruction. There is extensive diverticulosis involving the colon without obvious diverticulitis. Generalized anasarca noted. The appendix is not seen. The kidneys show no obvious hydronephrosis. The right kidney appears atrophic. There is a suggestion of cysts within the right kidney but this is grossly limited in terms of visualization. The gallbladder is demonstrated. The rectum appears low in location suggestive of prolapse and with a moderate degree of fecal retention. IMPRESSION: Limited evaluation due to artifact. Mild to moderate ascites Trace bilateral pleural effusions. Basilar atelectasis and/or infiltrate. Trace pericardial effusion Generalized cardiomegaly. Atherosclerotic vascular disease Extensive diverticulosis of the colon. No definite diverticulitis. Anasarca Gross catheter Query rectal prolapse (3) Severe sepsis Tristan Heller Feb 25, 2019 11:13
--- NOTE | 2019-02-25 12:24 | Infectious Diseases Prog Note ---
Assessment/Plan Assessment/Plan A 1. pneumonia 2. fungal UTI 3.Acute renal failure 4. septic shock 5. CHF, systolic 6. dementia 7. Hypoxic respiratory failure 8. 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 Portal hypertension 12. 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 continue Zosyn & fluconazole 2. will follow up cultures 3. Poor prognosis Subjective ROS Limited/Unobtainable: Yes Constitutional: Denies: fever Cardiovascular: Reports: other - dose of Levophed decreasing Gastrointestinal/Abdominal: Reports: diarrhea Allergies: Coded Allergies: No Known Allergies (Unverified , 02/19/19) Objective Vital Signs Last 24 Hour Vital Signs Date Time Temp Pulse Resp B/P (MAP) Pulse Ox O2 Delivery O2 Flow Rate FiO2 02/25/19 11:30 117 18 125/67 (86) 100 02/25/19 11:00 108 16 115/71 (86) 100 02/25/19 11:00 115/71 02/25/19 10:46 117 16 40 02/25/19 10:39 112 02/25/19 10:30 112 16 118/74 (89) 100 02/25/19 10:00 110/65 02/25/19 10:00 115 16 122/59 (80) 100 02/25/19 09:30 112 16 103/79 (87) 100 02/25/19 09:00 113/72 02/25/19 09:00 117 16 112/67 (82) 100 02/25/19 08:59 119 16 40 02/25/19 08:30 121 18 121/69 (86) 100 02/25/19 08:00 40 02/25/19 08:00 99.3 114 16 120/59 (79) 100 02/25/19 08:00 112/78 02/25/19 08:00 114 02/25/19 08:00 Endotracheal Tube 02/25/19 07:30 117 16 110/67 (81) 100 02/25/19 07:01 131 16 40 02/25/19 07:00 118 16 102/67 (79) 100 02/25/19 07:00 118/65 02/25/19 06:58 114 16 100 Mechanical Ventilator 40 02/25/19 06:30 122 17 109/60 (76) 100 02/25/19 06:00 112/76 02/25/19 06:00 123 21 112/76 (88) 100 02/25/19 05:30 117 18 116/62 (80) 100 02/25/19 05:06 123 18 40 02/25/19 05:00 118 17 121/69 (86) 100 02/25/19 05:00 121/69 02/25/19 04:30 118 17 114/66 (82) 100 02/25/19 04:28 125/70 02/25/19 04:00 98.6 123 16 108/61 (77) 100 02/25/19 04:00 40 02/25/19 04:00 108/61 02/25/19 04:00 Endotracheal Tube 02/25/19 03:30 118 02/25/19 03:30 121 17 122/72 (89) 100 02/25/19 03:03 124 17 40 02/25/19 03:00 123/66 02/25/19 03:00 125 18 123/66 (85) 100 02/25/19 02:30 123 16 124/75 (91) 100 02/25/19 02:00 119 16 117/67 (84) 100 02/25/19 02:00 117/67 02/25/19 01:30 120 16 116/73 (87) 100 02/25/19 01:00 123/79 02/25/19 01:00 127 21 40 02/25/19 01:00 127 18 123/79 (94) 100 02/25/19 00:30 121 16 125/66 (85) 100 02/25/19 00:00 40 02/25/19 00:00 111/66 02/25/19 00:00 98.9 119 17 111/66 (81) 100 02/25/19 00:00 Endotracheal Tube 02/24/19 23:30 127 20 130/65 (86) 100 02/24/19 23:22 132 02/24/19 23:00 118/69 02/24/19 23:00 126 19 118/69 (85) 100 02/24/19 22:50 130 21 40 02/24/19 22:30 129 19 117/80 (92) 100 02/24/19 22:00 112/68 02/24/19 22:00 125 18 112/68 (83) 100 02/24/19 21:30 129 22 100/78 (85) 100 02/24/19 21:03 140 21 40 02/24/19 21:00 100/76 02/24/19 21:00 132 21 100/76 (84) 100 02/24/19 20:30 126 17 110/64 (79) 100 02/24/19 20:15 130 123/65 02/24/19 20:00 98.2 122 18 104/67 (79) 100 02/24/19 20:00 104/67 02/24/19 20:00 Endotracheal Tube 02/24/19 20:00 40 02/24/19 19:30 126 19 110/75 (87) 100 02/24/19 19:08 135 02/24/19 19:00 135 24 117/65 (82) 99 02/24/19 19:00 117/65 02/24/19 18:56 135 21 40 02/24/19 18:30 124 18 94/45 (61) 100 02/24/19 18:00 124 20 112/64 (80) 100 02/24/19 18:00 112/64 02/24/19 17:30 122 17 95/68 (77) 100 02/24/19 17:00 111/66 02/24/19 17:00 133 24 102/60 (74) 100 02/24/19 16:30 130 21 108/50 (69) 99 02/24/19 16:26 131 18 40 02/24/19 16:00 40 02/24/19 16:00 119 02/24/19 16:00 111/60 02/24/19 16:00 Endotracheal Tube 02/24/19 16:00 98.5 127 19 111/66 (81) 100 02/24/19 15:30 136 25 105/60 (75) 100 02/24/19 15:18 131 18 40 02/24/19 15:00 114/70 02/24/19 15:00 130 17 114/70 (85) 99 02/24/19 14:30 125 17 104/85 (91) 100 02/24/19 14:00 130 21 113/63 (80) 99 02/24/19 14:00 113/63 02/24/19 13:30 135 21 74/51 (59) 99 02/24/19 13:00 100/86 02/24/19 13:00 143 19 100/86 (91) 100 02/24/19 12:59 148 22 40 02/24/19 12:30 137 18 102/66 (78) 100 02/24/19 12:25 150 Height (Feet): 5 Height (Inches): 6.00 Weight (Pounds): 161 HEENT: other - orally intubated Respiratory/Chest: lungs clear, other - on ventilator Cardiovascular: tachycardia, other - RIJ central, left arm PICC line Abdomen: soft, non tender, other - GT & rectal tube Extremities: other - mildly cyanotic toes Skin: no rash Neurologic/Psychiatric: aphasia Laboratory Tests Test 02/24/19 15:34 02/24/19 18:40 02/24/19 20:43 02/25/19 04:20 Lactic Acid Level 2.10 mmol/L (0.4-2.0) H 2.00 mmol/L (0.4-2.0) 2.40 mmol/L (0.4-2.0) H Arterial Blood pH 7.484 (7.350-7.450) Arterial Blood Partial Pressure CO2 26.7 mmHg (35.0-45.0) L Arterial Blood Partial Pressure O2 105.8 mmHg (75.0-100.0) H Arterial Blood HCO3 19.6 mmol/L (22.0-26.0) L Arterial Blood Oxygen Saturation 97.5 % (95-100) Arterial Blood Base Excess -2.9 (-2-2) L Melchor Test Positive White Blood Count 17.1 K/UL (4.8-10.8) H Red Blood Count 2.63 M/UL (4.20-5.40) L Hemoglobin 8.7 G/DL (12.0-16.0) L Hematocrit 27.2 % (37.0-47.0) L Mean Corpuscular Volume 103 FL (80-99) H Mean Corpuscular Hemoglobin 33.0 PG (27.0-31.0) H Mean Corpuscular Hemoglobin Concent 32.0 G/DL (32.0-36.0) Red Cell Distribution Width 19.0 % (11.6-14.8) H Platelet Count 54 K/UL (150-450) L Mean Platelet Volume 7.7 FL (6.5-10.1) Neutrophils (%) (Auto) % (45.0-75.0) Lymphocytes (%) (Auto) % (20.0-45.0) Monocytes (%) (Auto) % (1.0-10.0) Eosinophils (%) (Auto) % (0.0-3.0) Basophils (%) (Auto) % (0.0-2.0) Differential Total Cells Counted 100 Neutrophils % (Manual) 94 % (45-75) H Lymphocytes % (Manual) 2 % (20-45) L Monocytes % (Manual) 4 % (1-10) Eosinophils % (Manual) 0 % (0-3) Basophils % (Manual) 0 % (0-2) Band Neutrophils 0 % (0-8) Platelet Estimate Decreased L Platelet Morphology Normal Polychromasia 1+ Hypochromasia 1+ Anisocytosis 2+ Macrocytosis 2+ Sodium Level 142 MMOL/L (136-145) # Potassium Level 2.7 MMOL/L (3.5-5.1) *L Chloride Level 108 MMOL/L (98-107) H Carbon Dioxide Level 24 MMOL/L (21-32) Anion Gap 9 mmol/L (5-15) Blood Urea Nitrogen 42 mg/dL (7-18) H Creatinine 1.9 MG/DL (0.55-1.30) H Estimat Glomerular Filtration Rate mL/min (>60) Glucose Level 258 MG/DL (74-106) H Calcium Level 7.7 MG/DL (8.5-10.1) L Phosphorus Level 2.1 MG/DL (2.5-4.9) L Magnesium Level 1.6 MG/DL (1.8-2.4) L Total Bilirubin 2.1 MG/DL (0.2-1.0) H Direct Bilirubin 1.4 MG/DL (0.0-0.3) H Aspartate Amino Transf (AST/SGOT) 59 U/L (15-37) H Alanine Aminotransferase (ALT/SGPT) 41 U/L (12-78) Alkaline Phosphatase 107 U/L (46-116) Troponin I 0.164 ng/mL (0.000-0.056) C-Reactive Protein, Quantitative 3.7 mg/dL (0.00-0.90) H Pro-B-Type Natriuretic Peptide > 73006 pg/mL (0-125) H Total Protein 5.2 G/DL (6.4-8.2) L Albumin 1.9 G/DL (3.4-5.0) L Globulin 3.3 g/dL Albumin/Globulin Ratio 0.6 (1.0-2.7) L Digoxin Level 0.4 NG/ML (0.9-2.0) L Test 02/25/19 10:05 Prothrombin Time 16.2 SEC (9.30-11.50) H Prothromb Time International Ratio 1.6 (0.9-1.1) H Activated Partial Thromboplast Time 41 SEC (23-33) H Lactic Acid Level 2.00 mmol/L (0.4-2.0) Current Medications Medications (Trade) Dose Ordered Sig/Pam Route PRN Reason Start Time Stop Time Status Last Admin Dose Admin Acetaminophen (Tylenol) 650 mg Q4H PRN ORAL Mild Pain/Temp > 100.5 02/19/19 17:15 03/21/19 17:14 Chlorhexidine Gluconate (Dayna-Hex 2%) 1 applic DAILY@2000 TOPIC 02/20/19 20:00 03/22/19 19:59 02/24/19 19:44 Fluconazole (Diflucan) 100 mg DAILY ORAL 02/21/19 10:39 02/28/19 10:38 02/25/19 08:47 Norepinephrine Bitartrate 16 mg/ Dextrose 500 ml @ 0 mls/hr Q24H IV 02/22/19 12:00 03/24/19 11:59 02/25/19 04:28 Pantoprazole (Protonix) 40 mg Q12HR IVP 02/20/19 21:00 03/21/19 17:59 02/25/19 08:47 Phenylephrine HCl 100 mg/Sodium Chloride 250 ml @ 0 mls/hr Q24H IV 02/19/19 20:15 03/21/19 20:14 02/23/19 09:11 Piperacillin Sod/ Tazobactam Sod 3.375 gm/Sodium Chloride 110 ml @ 27.5 mls/hr Q12HR IVPB 02/19/19 21:00 02/25/19 16:59 02/25/19 08:44 Piperacillin Sod/ Tazobactam Sod 3.375 gm/Sodium Chloride 110 ml @ 27.5 mls/hr Q8HR@0100,0900,1700 IVPB 02/25/19 17:00 03/04/19 16:59 Potassium Phosphate 30 mm/ Sodium Chloride 285 ml @ 47.5 mls/hr ONCE ONCE IV 02/25/19 10:00 02/25/19 15:59 02/25/19 10:21 Potassium Chloride (K-Dur) 20 meq TWICE A DAY NG 02/25/19 18:00 03/27/19 17:59 Neville Cunningham MD Feb 25, 2019 12:24
--- NOTE | 2019-02-25 12:26 | NUR ---
NURSE NOTES: Dayron Cunningham MD made rounds, updates given about WBC trending upwards, lactic acid lvl @ 2.0; informed PT is on Levophed @ 10mcg/min; rectal tube and martinez in place.
--- NOTE | 2019-02-25 13:09 | General Progress Note ---
Assessment/Plan Status: stable, not improved, deteriorating Assessment/Plan: Assessment - GT dependent - Hepatitis C (+) - Abnormal LFT, ascites - suspect chronic liver disease - Lactic acidosis - Resp failure - OBS / Delirium - Azotemia - Diarrhea - poor PX Recommendations - lactulose - supportive care - Abx per ID - agree with DNR Subjective Allergies: Coded Allergies: No Known Allergies (Unverified , 02/19/19) Subjective Above noted seen this am in ICU intubated unresponsive d/w RN on pressors Objective Last 24 Hour Vital Signs Date Time Temp Pulse Resp B/P (MAP) Pulse Ox O2 Delivery O2 Flow Rate FiO2 02/25/19 12:37 112 16 40 02/25/19 12:30 109 16 121/72 (88) 100 02/25/19 12:15 108 16 129/68 (88) 100 02/25/19 12:00 40 02/25/19 12:00 Endotracheal Tube 02/25/19 12:00 121/65 02/25/19 12:00 99.1 113 16 121/65 (83) 100 02/25/19 11:30 117 18 125/67 (86) 100 02/25/19 11:00 108 16 115/71 (86) 100 02/25/19 11:00 115/71 02/25/19 10:46 117 16 40 02/25/19 10:39 112 02/25/19 10:30 112 16 118/74 (89) 100 02/25/19 10:00 110/65 02/25/19 10:00 115 16 122/59 (80) 100 02/25/19 09:30 112 16 103/79 (87) 100 02/25/19 09:00 113/72 02/25/19 09:00 117 16 112/67 (82) 100 02/25/19 08:59 119 16 40 02/25/19 08:30 121 18 121/69 (86) 100 02/25/19 08:00 40 02/25/19 08:00 99.3 114 16 120/59 (79) 100 02/25/19 08:00 112/78 02/25/19 08:00 114 02/25/19 08:00 Endotracheal Tube 02/25/19 07:30 117 16 110/67 (81) 100 02/25/19 07:01 131 16 40 02/25/19 07:00 118 16 102/67 (79) 100 02/25/19 07:00 118/65 02/25/19 06:58 114 16 100 Mechanical Ventilator 40 02/25/19 06:30 122 17 109/60 (76) 100 02/25/19 06:00 112/76 02/25/19 06:00 123 21 112/76 (88) 100 02/25/19 05:30 117 18 116/62 (80) 100 02/25/19 05:06 123 18 40 02/25/19 05:00 118 17 121/69 (86) 100 02/25/19 05:00 121/69 02/25/19 04:30 118 17 114/66 (82) 100 02/25/19 04:28 125/70 02/25/19 04:00 98.6 123 16 108/61 (77) 100 02/25/19 04:00 40 02/25/19 04:00 108/61 02/25/19 04:00 Endotracheal Tube 02/25/19 03:30 118 02/25/19 03:30 121 17 122/72 (89) 100 02/25/19 03:03 124 17 40 02/25/19 03:00 123/66 02/25/19 03:00 125 18 123/66 (85) 100 02/25/19 02:30 123 16 124/75 (91) 100 02/25/19 02:00 119 16 117/67 (84) 100 02/25/19 02:00 117/67 02/25/19 01:30 120 16 116/73 (87) 100 02/25/19 01:00 123/79 02/25/19 01:00 127 21 40 02/25/19 01:00 127 18 123/79 (94) 100 02/25/19 00:30 121 16 125/66 (85) 100 02/25/19 00:00 40 02/25/19 00:00 111/66 02/25/19 00:00 98.9 119 17 111/66 (81) 100 02/25/19 00:00 Endotracheal Tube 02/24/19 23:30 127 20 130/65 (86) 100 02/24/19 23:22 132 02/24/19 23:00 118/69 02/24/19 23:00 126 19 118/69 (85) 100 02/24/19 22:50 130 21 40 02/24/19 22:30 129 19 117/80 (92) 100 02/24/19 22:00 112/68 02/24/19 22:00 125 18 112/68 (83) 100 02/24/19 21:30 129 22 100/78 (85) 100 02/24/19 21:03 140 21 40 02/24/19 21:00 100/76 02/24/19 21:00 132 21 100/76 (84) 100 02/24/19 20:30 126 17 110/64 (79) 100 02/24/19 20:15 130 123/65 02/24/19 20:00 98.2 122 18 104/67 (79) 100 02/24/19 20:00 104/67 02/24/19 20:00 Endotracheal Tube 02/24/19 20:00 40 02/24/19 19:30 126 19 110/75 (87) 100 02/24/19 19:08 135 02/24/19 19:00 135 24 117/65 (82) 99 02/24/19 19:00 117/65 02/24/19 18:56 135 21 40 02/24/19 18:30 124 18 94/45 (61) 100 02/24/19 18:00 124 20 112/64 (80) 100 02/24/19 18:00 112/64 02/24/19 17:30 122 17 95/68 (77) 100 02/24/19 17:00 111/66 02/24/19 17:00 133 24 102/60 (74) 100 02/24/19 16:30 130 21 108/50 (69) 99 02/24/19 16:26 131 18 40 02/24/19 16:00 40 02/24/19 16:00 119 02/24/19 16:00 111/60 02/24/19 16:00 Endotracheal Tube 02/24/19 16:00 98.5 127 19 111/66 (81) 100 02/24/19 15:30 136 25 105/60 (75) 100 02/24/19 15:18 131 18 40 02/24/19 15:00 114/70 02/24/19 15:00 130 17 114/70 (85) 99 02/24/19 14:30 125 17 104/85 (91) 100 02/24/19 14:00 130 21 113/63 (80) 99 02/24/19 14:00 113/63 02/24/19 13:30 135 21 74/51 (59) 99 Intake and Output 02/24/19 02/25/19 18:59 06:59 Intake Total 1300.3125 ml 980.0 ml Output Total 755 ml 1185 ml Balance 545.3125 ml -205.0 ml IV Total 780.3125 ml 380.0 ml Tube Feeding 490 ml 600 ml Other 30 ml Output Urine Total 305 ml 535 ml Stool Total 450 ml 650 ml # Bowel Movements 3 Laboratory Tests 02/24/19 15:34: Lactic Acid Level 2.10H 02/24/19 18:40: Arterial Blood pH 7.484H, Arterial Blood Partial Pressure CO2 26.7L, Arterial Blood Partial Pressure O2 105.8H, Arterial Blood HCO3 19.6L, Arterial Blood Oxygen Saturation 97.5, Arterial Blood Base Excess -2.9L, Melchor Test Positive 02/24/19 20:43: Lactic Acid Level 2.00 02/25/19 04:20: Lactic Acid Level 2.40H, White Blood Count 17.1H, Red Blood Count 2.63L, Hemoglobin 8.7L, Hematocrit 27.2L, Mean Corpuscular Volume 103H, Mean Corpuscular Hemoglobin 33.0H, Mean Corpuscular Hemoglobin Concent 32.0, Red Cell Distribution Width 19.0H, Platelet Count 54L, Mean Platelet Volume 7.7, Neutrophils (%) (Auto) , Lymphocytes (%) (Auto) , Monocytes (%) (Auto) , Eosinophils (%) (Auto) , Basophils (%) (Auto) , Differential Total Cells Counted 100, Neutrophils % (Manual) 94H, Lymphocytes % (Manual) 2L, Monocytes % (Manual) 4, Eosinophils % (Manual) 0, Basophils % (Manual) 0, Band Neutrophils 0 , Platelet Estimate DecreasedL, Platelet Morphology Normal, Polychromasia 1+, Hypochromasia 1+, Anisocytosis 2+, Macrocytosis 2+, Sodium Level 142#, Potassium Level 2.7*L, Chloride Level 108H, Carbon Dioxide Level 24, Anion Gap 9 , Blood Urea Nitrogen 42H, Creatinine 1.9H, Estimat Glomerular Filtration Rate , Glucose Level 258H, Calcium Level 7.7L, Phosphorus Level 2.1L, Magnesium Level 1.6L, Total Bilirubin 2.1H, Direct Bilirubin 1.4H, Aspartate Amino Transf (AST/SGOT) 59H, Alanine Aminotransferase (ALT/SGPT) 41, Alkaline Phosphatase 107 , Troponin I 0.164H, C-Reactive Protein, Quantitative 3.7H, Pro-B-Type Natriuretic Peptide > 02542C, Total Protein 5.2L, Albumin 1.9L, Globulin 3.3, Albumin/Globulin Ratio 0.6L, Digoxin Level 0.4L 02/25/19 10:05: Prothrombin Time 16.2H, Prothromb Time International Ratio 1.6H, Activated Partial Thromboplast Time 41H, Lactic Acid Level 2.00 Height (Feet): 5 Height (Inches): 6.00 Weight (Pounds): 161 Objective WDWN NCAT Supple Coarse ronchi RR abd soft ND NT, (+) GT obtunded César Saldana MD Feb 25, 2019 13:09
--- NOTE | 2019-02-25 16:09 | NUR ---
NURSE NOTES: Levophed titrated from 10mcg/min to 8mcg/min, PT VS stable, remains intubated ETT 7.0; R-lip @ 22cm, AC 16; TV 500; 40%, peep 5; saturating at 100%. Will continue to monitor PT.
--- NOTE | 2019-02-25 16:34 | Pulmonolgy Critical Care Note ---
Critical Care - Asmt/Plan Assessment/Plan: Pulmonary CCM Progress Note Assessment/Plan ASSESSMENT: acute on chronic encephalopathy, Hepatitis C, dementia, chronic atrial fibrillation, hypertension, diastolic congestive heart failure, septic shock, hypothermia, hypotension, hypoxemia severe PCM, thrombocytopenia, anemia, leukocytosis, acute renal failure tachycardia, no on Vent support PLAN care noted vent management, wean as tolerated monitor acid base support as able full code pressors as needed IV antibiotics respiratory care SNF meds supportive care suction as needed monitor for aspiration oxygen therapy as needed try to wean as able close follow up of acid base for now prognosis guarded and currently patient is critical medications/laboratory data/nursing notes/ICU care reviewed in detail note reviewed and edited care discussed with RN and RT ICU time spent 40 minutes Critical Care - Subjective Interval Events: care noted now intubated failed BIPAP oxygen needs reviewed ICU care noted ROS Limited/Unobtainable: Yes Condition: critical EKG Rhythm: Sinus Rhythm Critical Care - Objective CXR: CHF ET-Tube: 7.0 ET Position: 22 Last 24 Hour Vital Signs Noted Labs noted Objective: PHYSICAL EXAMINATION: GENERAL: The patient is a chronically ill-appearing female, on VENT NECK: Supple. There is a central line in the right subclavian area. HEART: tachy RR.without MRG LUNGS: reduced breath sounds with scattered rhonchi; no wheeze ABDOMEN: Soft, nontender, nondistended. no HSM EXTREMITIES: No clubbing, cyanosis, or edema. NEURO: response to pain Critical Care - Objective Last 24 Hour Vital Signs Date Time Temp Pulse Resp B/P (MAP) Pulse Ox O2 Delivery O2 Flow Rate FiO2 02/25/19 16:00 99.1 111 16 124/71 (88) 100 02/25/19 16:00 124/71 02/25/19 16:00 40 02/25/19 16:00 Endotracheal Tube 02/25/19 15:30 114 17 123/80 (94) 100 02/25/19 15:00 118/64 02/25/19 15:00 114 17 118/64 (82) 100 02/25/19 14:36 117 16 40 02/25/19 14:30 110 16 117/81 (93) 100 02/25/19 14:00 107 16 108/73 (85) 100 02/25/19 14:00 108/73 02/25/19 13:30 113 16 124/62 (82) 100 02/25/19 13:00 108 16 122/71 (88) 100 02/25/19 13:00 122/71 02/25/19 12:37 112 16 40 02/25/19 12:30 109 16 121/72 (88) 100 02/25/19 12:15 108 16 129/68 (88) 100 02/25/19 12:00 40 02/25/19 12:00 Endotracheal Tube 02/25/19 12:00 121/65 02/25/19 12:00 123 02/25/19 12:00 99.1 113 16 121/65 (83) 100 02/25/19 11:30 117 18 125/67 (86) 100 02/25/19 11:00 108 16 115/71 (86) 100 02/25/19 11:00 115/71 02/25/19 10:46 117 16 40 02/25/19 10:39 112 02/25/19 10:30 112 16 118/74 (89) 100 02/25/19 10:00 110/65 02/25/19 10:00 115 16 122/59 (80) 100 02/25/19 09:30 112 16 103/79 (87) 100 02/25/19 09:00 113/72 02/25/19 09:00 117 16 112/67 (82) 100 02/25/19 08:59 119 16 40 02/25/19 08:30 121 18 121/69 (86) 100 02/25/19 08:00 40 02/25/19 08:00 99.3 114 16 120/59 (79) 100 02/25/19 08:00 112/78 02/25/19 08:00 114 02/25/19 08:00 Endotracheal Tube 02/25/19 07:30 117 16 110/67 (81) 100 02/25/19 07:01 131 16 40 02/25/19 07:00 118 16 102/67 (79) 100 02/25/19 07:00 118/65 02/25/19 06:58 114 16 100 Mechanical Ventilator 40 02/25/19 06:30 122 17 109/60 (76) 100 02/25/19 06:00 112/76 02/25/19 06:00 123 21 112/76 (88) 100 02/25/19 05:30 117 18 116/62 (80) 100 02/25/19 05:06 123 18 40 02/25/19 05:00 118 17 121/69 (86) 100 02/25/19 05:00 121/69 02/25/19 04:30 118 17 114/66 (82) 100 02/25/19 04:28 125/70 02/25/19 04:00 98.6 123 16 108/61 (77) 100 02/25/19 04:00 40 02/25/19 04:00 108/61 02/25/19 04:00 Endotracheal Tube 02/25/19 03:30 118 02/25/19 03:30 121 17 122/72 (89) 100 02/25/19 03:03 124 17 40 02/25/19 03:00 123/66 02/25/19 03:00 125 18 123/66 (85) 100 02/25/19 02:30 123 16 124/75 (91) 100 02/25/19 02:00 119 16 117/67 (84) 100 02/25/19 02:00 117/67 02/25/19 01:30 120 16 116/73 (87) 100 02/25/19 01:00 123/79 02/25/19 01:00 127 21 40 02/25/19 01:00 127 18 123/79 (94) 100 02/25/19 00:30 121 16 125/66 (85) 100 02/25/19 00:00 40 02/25/19 00:00 111/66 02/25/19 00:00 98.9 119 17 111/66 (81) 100 02/25/19 00:00 Endotracheal Tube 02/24/19 23:30 127 20 130/65 (86) 100 02/24/19 23:22 132 02/24/19 23:00 118/69 02/24/19 23:00 126 19 118/69 (85) 100 02/24/19 22:50 130 21 40 02/24/19 22:30 129 19 117/80 (92) 100 02/24/19 22:00 112/68 02/24/19 22:00 125 18 112/68 (83) 100 02/24/19 21:30 129 22 100/78 (85) 100 02/24/19 21:03 140 21 40 02/24/19 21:00 100/76 02/24/19 21:00 132 21 100/76 (84) 100 02/24/19 20:30 126 17 110/64 (79) 100 02/24/19 20:15 130 123/65 02/24/19 20:00 98.2 122 18 104/67 (79) 100 02/24/19 20:00 104/67 02/24/19 20:00 Endotracheal Tube 02/24/19 20:00 40 02/24/19 19:30 126 19 110/75 (87) 100 02/24/19 19:08 135 02/24/19 19:00 135 24 117/65 (82) 99 02/24/19 19:00 117/65 02/24/19 18:56 135 21 40 02/24/19 18:30 124 18 94/45 (61) 100 02/24/19 18:00 124 20 112/64 (80) 100 02/24/19 18:00 112/64 02/24/19 17:30 122 17 95/68 (77) 100 02/24/19 17:00 111/66 02/24/19 17:00 133 24 102/60 (74) 100 Accucheck: 72 Critical Care - Subjective ROS Limited/Unobtainable: No FI02: 40 Vent Support Breath Rate: 16 Vent Support Mode: AC Vent Tidal Volume: 500 Sputum Amount: Scant PEEP: 5.0 PIP: 23 Tube Feeding Amount: 50 I&O: Intake and Output 02/24/19 02/25/19 18:59 06:59 Intake Total 1300.3125 ml 980.0 ml Output Total 755 ml 1185 ml Balance 545.3125 ml -205.0 ml IV Total 780.3125 ml 380.0 ml Tube Feeding 490 ml 600 ml Other 30 ml Output Urine Total 305 ml 535 ml Stool Total 450 ml 650 ml # Bowel Movements 3 ET-Tube: 7.0 ET Position: 22 Jimmie Puckett MD Feb 25, 2019 16:34
--- NOTE | 2019-02-25 16:45 | Progress Note ---
DATE: 02/24/2019 CARDIOLOGY PROGRESS NOTE SUBJECTIVE: The patient was seen and evaluated. Case was discussed with primary care physician, the nursing staff, and the surgeon. The patient continues to have blood pressure instability requiring pressors. She has also been on stress dose steroids. She is on broad-spectrum antimicrobials. The pressors are being weaned off. PHYSICAL EXAMINATION: VITAL SIGNS: Blood pressure 90/50 , respiratory rate 25, no fevers, temperature 97.5. HEENT: The patient is orally intubated. LUNGS: Diminished breath sounds. HEART: Irregularly irregular rhythm. Normal S1, S2. ABDOMEN: Distended. EXTREMITIES: There is 2+ dependent edema. LABORATORY DATA: White count 14.3, hemoglobin 9. Sodium 132, potassium 2.8, bicarb 24, BUN 43, creatinine 2. Lactic acid 2.1. Albumin 1.8. ABG, 7.48, 26, 105. IMPRESSION: 1. Profound shock. 2. Sepsis. 3. Hypovolemia. 4. Adrenocortical insufficiency. 5. Severe protein-calorie malnutrition. 6. Respiratory failure. 7. Paroxysmal atrial fibrillation with rapid ventricular response. 8. Lactic acidosis. 9. Chronic liver disease with cirrhosis. 10. Possible chronic pulmonary embolic events with right-sided heart failure. 11. Condition, critical. 12. Prognosis guarded. PLAN: 1. Ventilator support. 2. Stress dose steroids . 3. Taper pressors as able. 4. Continue volume resuscitation. 5. We will need to address options for right-sided failure and associated edema once acuity of hemodynamics process can be stabilized, not ready for extubation, off ventilator at this time. Jimmie Mason M.D. DR: Corry JOB#: [id number] CC: CHRISTINE
[2019-02-25] MEDS: Zosyn 3.375gm q8h **Extended infusion IVPB SCH ×2 (16:46)
--- NOTE | 2019-02-25 17:15 | Progress Note ---
DATE: 02/25/2019 CARDIOLOGY PROGRESS NOTE SUBJECTIVE: The patient's condition remains critical. Prognosis guarded. The patient remains on ventilator support. The patient remains on pressor support with however requirements have decreased and are being tapered off. The patient remains with stress dose steroids. Monitor continues to show rapid atrial fibrillation. OBJECTIVE: VITAL SIGNS: Blood pressure 102/67, pulse 118, respiratory rate 16, afebrile. HEENT: Orally intubated. LUNGS: Bilateral breath sounds. Diminished at bases. HEART: Irregularly irregular rhythm. Normal S1, S2. ABDOMEN: Distended, but soft. EXTREMITIES: Revealed dependent edema. Capillary refill is diminished. LABORATORY AND DIAGNOSTIC DATA: Sodium 132, potassium 2.8, bicarb 24, BUN 43, creatinine 2. Lactic acid 2.1. Albumin 1.8. White count 17, hemoglobin 8.7. IMPRESSION: 1. Respiratory failure. 2. Shock. 3. Hypokalemia. 4. Acute on chronic renal failure. 5. Atrial fibrillation with rapid ventricular response. 6. Acute on chronic systolic and diastolic congestive heart failure, mostly right-sided. PLAN: 1. Antimicrobials. 2. Ventilator support. 3. Tapered off pressors. 4. Stress dose steroid, taper to follow. 5. DVT and stress ulcer prophylaxis. 6. Volume support. 7. Prognosis remains grave. Jimmie Mason M.D. DR: Corry JOB#: [id number] CC:
--- NOTE | 2019-02-25 18:31 | NUR ---
NURSE NOTES: Complete linen change done, bilateral arms weeping; chucks placed to absorb discharge from arms, R-IJ TLC and KELVIN PICC remain patent, flushes well, Levophed infusing at 8mcg/min, VS stable, remains intubated no S/S of respiratory distress noted.
--- NOTE | 2019-02-25 19:03 | NUR ---
RESPIRATORY NOTE: Received pt on AC 16, 500VT, 40%, PEEP +5. Pt intubated w/ ETT 7.0 @ 22cm lipline, secured by anchorfast. Pt awake/disoriented, minimal response to stimuli. B/S lasha. Rhonchi, sxn small amounts of thin/frothy, white to pale-yellow secretions. No hand restraints as pt unable to move arms. Vent plugged into red outlet, ambubag at bedside. Pt in no apparent distress at this time. Will continue to monitor pt.
--- NOTE | 2019-02-25 19:14 | NUR ---
HAND-OFF: Report and PT given to ANDREINA Delatorre.
--- NOTE | 2019-02-25 19:15 | NUR ---
NURSE NOTES: Endorsement received from ANDREINA Mcfarlane. Patient opens eyes spontaneously. Orally intubated with ET 7.0, 22 lipline. AC 16 500 PEEP 5 40% FiO2. GT patent and intact. Receiving Vital AF 50 ml/hr. No residual. R IJ TLC. Left upper arm PICC. On Levophed 8mcg/min. Rectal tube in place. Gross connected to urimeter. Head of bed elevated. Bed alarm on, locked and in lowest position
[2019-02-25] MEDS: Dyna-Hex 2% Top Sol 2oz TOPIC SCH (20:38)
--- NOTE | 2019-02-25 21:00 | NUR ---
NURSE NOTES: Patient maintaining SBP >90 with levophed, previous bag not yet consumed nor .
[2019-02-25] MEDS: Phenylephrine 100 MG in NS 240 ML IV SCH (21:03)
--- NOTE | 2019-02-25 23:00 | NUR ---
NURSE NOTES: Patient awake, more responsive. Nods/shakes head when asked with yes/no questions.
[2019-02-26] VITALS (60 sets, daily range): BP systolic 85–121; BP diastolic 53–83
--- NOTE | 2019-02-26 01:00 | NUR ---
NURSE NOTES: Patient asleep. Tolerating feeding.
[2019-02-26] MEDS: Zosyn 3.375gm q8h **Extended infusion IVPB SCH ×4 (01:03→08:21)
--- NOTE | 2019-02-26 03:00 | NUR ---
NURSE NOTES: Patient asleep. Levophed at 4mcg/min
[2019-02-26] MEDS: Norepinephrine Bitartrate 16 MG in D5W 500ml 484 ML IV SCH ×2 (04:56→17:30)
--- NOTE | 2019-02-26 05:00 | NUR ---
NURSE NOTES: Bed bath, oral care, change of linens done
[2019-02-26 05:16] LABS: HEMATOCRIT 25.7 % (37.0-47.0); HEMOGLOBIN 8.6 G/DL (12.0-16.0); MEAN CORPUSCULAR VOLUME 100 FL (80-99); PLATELET COUNT 28 K/UL (150-450); RED BLOOD COUNT 2.58 M/UL (4.20-5.40); RED CELL DISTRIBUTION WIDTH 17.1 % (11.6-14.8); WHITE BLOOD COUNT 15.7 K/UL (4.8-10.8)
--- NOTE | 2019-02-26 05:30 | NUR ---
NURSE NOTES: Patient awake, impulsive and attempting to pull out tubes. Reoriented, unable to redirect. Bilateral soft wrist restraints applied. Skin normal in color
[2019-02-26 05:41] LABS: ALANINE AMINOTRANSFERASE 39 U/L (12-78); ALBUMIN 1.7 G/DL (3.4-5.0); ALBUMIN/GLOBULIN RATIO 0.5 (1.0-2.7); ALKALINE PHOSPHATASE 119 U/L (46-116); ANION GAP 9 mmol/L (5-15); ASPARTATE AMINO TRANSFERASE 60 U/L (15-37); BILIRUBIN,TOTAL 1.8 MG/DL (0.2-1.0); BLOOD UREA NITROGEN 37 mg/dL (7-18); CALCIUM 7.2 MG/DL (8.5-10.1); CARBON DIOXIDE 23 MMOL/L (21-32); CHLORIDE 112 MMOL/L (98-107); CREATININE 1.6 MG/DL (0.55-1.30); POTASSIUM 3.2 MMOL/L (3.5-5.1); SODIUM 144 MMOL/L (136-145)
[2019-02-26 05:50] LABS: BILIRUBIN,DIRECT 1.2 MG/DL (0.0-0.3)
[2019-02-26 06:57] LABS: PHOSPHORUS 2.4 MG/DL (2.5-4.9)
--- NOTE | 2019-02-26 07:00 | NUR ---
HAND-OFF: Report given to ANDREINA Lopez.
--- NOTE | 2019-02-26 08:00 | NUR ---
NURSE NOTES: Received change of shift report from Nandini HDZ. Pt is awake, alert, oriented to name only, confused, orally intubated. ETT 7.0 at 22cm right lipline with vent settings AC16, VT500, Peep 5.0, FIO2 fluctuating in the 90's. Bilateral inspiratory and expiratory rhonchi is heard on auscultation. case monitor displays AFib with heart rate fluctuating from upper 90's to 110. Pt had central line on right IJ TLC, saline locked, patent/intact, and central line on left upper arm, double lumen, currently on Levophed drip at 4mcg/min. Pt had bilateral pitting/dependent edema on hands +3 with weeping upper extremities. GT is noted with feeding Vital AF infusing at goal rate of 50ml/hour with zero residual. Abdomen is large, round, ascitic, mildly hard to touch with active bowel sounds in all quadrants. Gross catheter is noted, draining yellow urine with sediments. Rectal tube is in place, draining liquid brown stool. Skin has bilateral heel DTI's and mild sacral redness. Pt is on pressure releasing mattress. Head of bed is at 30 degrees, bed locked, in lowest position, with three side rails up and call light within reach. Pt has bilateral soft wrist restraints in place to prevent self extubation as she is observed reaching for the ET tube. Will continue to monitor pt and follow plan of care. Addendum: 02/26/19 at 1022 by IKE BERMAN RN CORRECTION ON PREVIOUS/ABOVE NOTE: Replace the words "had" with "have"; pt currently still has central lines and bilateral UE pitting edema.
[2019-02-26] MEDS: Fluconazole 100mg tab ORAL SCH (08:21)
[2019-02-26] MEDS: Pantoprazole Inj IVP SCH ×2 (08:21→21:13)
--- NOTE | 2019-02-26 08:56 | General Progress Note ---
Assessment/Plan Problem List: (1) Septic shock ICD Codes: A41.9 - Sepsis, unspecified organism; R65.21 - Severe sepsis with septic shock SNOMED: 79169667 (2) UTI (urinary tract infection) ICD Codes: N39.0 - Urinary tract infection, site not specified SNOMED: 65843716 Qualifiers: Qualified Codes: N39.0 - Urinary tract infection, site not specified (3) Renal failure ICD Codes: N19 - Unspecified kidney failure SNOMED: 16690948 Qualifiers: Qualified Codes: N17.9 - Acute kidney failure, unspecified (4) Abdominal pain ICD Codes: R10.9 - Unspecified abdominal pain SNOMED: 93763292 Qualifiers: Qualified Codes: R10.32 - Left lower quadrant pain (5) Severe sepsis ICD Codes: A41.9 - Sepsis, unspecified organism; R65.20 - Severe sepsis without septic shock SNOMED: 36615504 (6) Dehydration ICD Codes: E86.0 - Dehydration SNOMED: 28789545 (7) Atrial fibrillation with rapid ventricular response ICD Codes: I48.91 - Unspecified atrial fibrillation SNOMED: 239581956878897 Status: stable, not improved, deteriorating Assessment/Plan: cont supportive care pressors- wean as able wean vent replace lytes iv abx per id tube feeds Subjective ROS Limited/Unobtainable: No Constitutional: Reports: malaise, weakness HEENT: Reports: no symptoms Cardiovascular: Reports: no symptoms Respiratory: Reports: shortness of breath Gastrointestinal/Abdominal: Reports: difficulty swallowing Genitourinary: Reports: no symptoms Neurologic/Psychiatric: Reports: pre-existing deficit Endocrine: Reports: no symptoms Hematologic/Lymphatic: Reports: anemia Allergies: Coded Allergies: No Known Allergies (Unverified , 02/19/19) All Systems: reviewed and negative except above Subjective remains intubated on pressors. doing better. now on levo at 4. much more alert. urine output better. cr trending down. Objective Last 24 Hour Vital Signs Date Time Temp Pulse Resp B/P (MAP) Pulse Ox O2 Delivery O2 Flow Rate FiO2 02/26/19 08:30 97 17 93/59 (70) 94 02/26/19 08:00 40 02/26/19 08:00 98 18 96/57 (70) 02/26/19 07:45 97 21 102/66 (78) 96 02/26/19 07:42 100 16 40 02/26/19 07:30 98 18 85/61 (69) 02/26/19 07:00 97.7 95 15 93/64 (74) 02/26/19 06:45 96 17 92/60 (71) 02/26/19 06:30 102 17 99/61 (74) 100 02/26/19 06:00 97 17 119/83 (95) 02/26/19 06:00 89/62 02/26/19 05:30 102 15 103/59 (74) 02/26/19 05:15 97 18 40 02/26/19 05:00 102 18 98/56 (70) 100 02/26/19 05:00 94/61 02/26/19 04:56 98/70 02/26/19 04:30 102 21 102/68 (79) 100 02/26/19 04:00 40 02/26/19 04:00 Endotracheal Tube 02/26/19 04:00 102/68 02/26/19 04:00 98.0 99 17 97/66 (76) 100 02/26/19 04:00 97 02/26/19 03:30 101 19 95/60 (72) 02/26/19 03:01 99 17 40 02/26/19 03:00 104/58 02/26/19 03:00 103 16 97/63 (74) 02/26/19 02:30 100 22 98/62 (74) 02/26/19 02:00 96 16 95/66 (76) 100 02/26/19 02:00 93/52 02/26/19 01:30 96 17 95/60 (72) 02/26/19 01:00 105/69 02/26/19 01:00 100 20 98/58 (71) 100 02/26/19 00:57 99 16 40 02/26/19 00:45 101 19 105/69 (81) 100 02/26/19 00:30 95 17 96/58 (71) 100 02/26/19 00:15 106 16 92/61 (71) 100 02/26/19 00:00 97 02/26/19 00:00 Endotracheal Tube 02/26/19 00:00 92/61 02/26/19 00:00 98.0 100 16 101/60 (74) 100 02/26/19 00:00 40 02/25/19 23:30 100 15 103/58 (73) 99 02/25/19 23:15 104 17 82/56 (65) 99 02/25/19 23:11 98 16 40 02/25/19 23:00 97 16 99/61 (74) 99 02/25/19 23:00 82/56 02/25/19 22:45 99 20 98/60 (73) 99 02/25/19 22:30 100 19 98/54 (69) 99 02/25/19 22:15 100 14 99/71 (80) 99 02/25/19 22:00 98/60 02/25/19 22:00 99 16 90/54 (66) 99 02/25/19 21:45 105 23 96/64 (75) 99 02/25/19 21:30 98 16 104/56 (72) 99 02/25/19 21:15 97 16 91/56 (68) 99 02/25/19 21:03 103 98/62 02/25/19 21:02 98/62 02/25/19 21:00 91/56 02/25/19 21:00 102 17 98/62 (74) 99 02/25/19 20:54 102 16 40 02/25/19 20:45 100 16 108/52 (70) 02/25/19 20:30 102 18 100/63 (75) 02/25/19 20:15 99 16 113/57 (75) 100 02/25/19 20:00 110 02/25/19 20:00 40 02/25/19 20:00 Endotracheal Tube 02/25/19 20:00 98.0 100 16 103/47 (65) 100 02/25/19 20:00 113/57 02/25/19 19:45 103 16 115/65 (82) 02/25/19 19:30 108 16 111/62 (78) 100 02/25/19 19:00 105 16 40 02/25/19 19:00 108/58 02/25/19 19:00 108 19 108/58 (75) 100 02/25/19 18:30 104 16 117/66 (83) 100 02/25/19 18:00 105 16 116/59 (78) 100 02/25/19 18:00 116/59 11/17/19 17:30 98.3 106 16 116/91 (99) 100 02/25/19 17:00 107/69 02/25/19 17:00 114 17 107/69 (82) 100 02/25/19 16:34 110 16 40 02/25/19 16:30 107 16 121/64 (83) 100 02/25/19 16:00 111 02/25/19 16:00 99.1 111 16 124/71 (88) 100 02/25/19 16:00 124/71 02/25/19 16:00 40 02/25/19 16:00 Endotracheal Tube 02/25/19 15:30 114 17 123/80 (94) 100 02/25/19 15:00 118/64 02/25/19 15:00 114 17 118/64 (82) 100 02/25/19 14:36 117 16 40 02/25/19 14:30 110 16 117/81 (93) 100 02/25/19 14:00 107 16 108/73 (85) 100 02/25/19 14:00 108/73 02/25/19 13:30 113 16 124/62 (82) 100 02/25/19 13:00 108 16 122/71 (88) 100 02/25/19 13:00 122/71 02/25/19 12:37 112 16 40 02/25/19 12:30 109 16 121/72 (88) 100 02/25/19 12:15 108 16 129/68 (88) 100 02/25/19 12:00 40 02/25/19 12:00 Endotracheal Tube 02/25/19 12:00 121/65 02/25/19 12:00 123 02/25/19 12:00 99.1 113 16 121/65 (83) 100 02/25/19 11:30 117 18 125/67 (86) 100 02/25/19 11:00 108 16 115/71 (86) 100 02/25/19 11:00 115/71 02/25/19 10:46 117 16 40 02/25/19 10:39 112 02/25/19 10:30 112 16 118/74 (89) 100 02/25/19 10:00 110/65 02/25/19 10:00 115 16 122/59 (80) 100 02/25/19 09:30 112 16 103/79 (87) 100 02/25/19 09:00 113/72 02/25/19 09:00 117 16 112/67 (82) 100 02/25/19 08:59 119 16 40 Intake and Output 02/25/19 02/26/19 19:00 07:00 Intake Total 1560.00 ml 811.25 ml Output Total 1460 ml 495 ml Balance 100.00 ml 316.25 ml Free Water 50 ml IV Total 860.00 ml 211.25 ml Tube Feeding 600 ml 550 ml Other 100 ml Output Urine Total 760 ml 445 ml Stool Total 700 ml 50 ml Laboratory Tests 02/25/19 10:05: Prothrombin Time 16.2H, Prothromb Time International Ratio 1.6H, Activated Partial Thromboplast Time 41H, Lactic Acid Level 2.00 02/26/19 04:45: White Blood Count 15.7H, Red Blood Count 2.58L, Hemoglobin 8.6L, Hematocrit 25.7L, Mean Corpuscular Volume 100H, Mean Corpuscular Hemoglobin 33.2H, Mean Corpuscular Hemoglobin Concent 33.3, Red Cell Distribution Width 17.1H, Platelet Count 28L, Mean Platelet Volume 5.7L, Neutrophils (%) (Auto) , Lymphocytes (%) (Auto) , Monocytes (%) (Auto) , Eosinophils (%) (Auto) , Basophils (%) (Auto) , Neutrophils % (Manual) [Pending], Lymphocytes % (Manual) [Pending], Platelet Estimate [Pending], Platelet Morphology [Pending], Sodium Level 144, Potassium Level 3.2L, Chloride Level 112H, Carbon Dioxide Level 23, Anion Gap 9, Blood Urea Nitrogen 37H, Creatinine 1.6H, Estimat Glomerular Filtration Rate , Glucose Level 217H, Uric Acid 7.0, Calcium Level 7.2L, Phosphorus Level 2.4L, Magnesium Level 1.6L, Total Bilirubin 1.8H, Direct Bilirubin 1.2H, Aspartate Amino Transf (AST/SGOT) 60H, Alanine Aminotransferase (ALT/SGPT) 39, Alkaline Phosphatase 119H, C-Reactive Protein, Quantitative 3.3H , Pro-B-Type Natriuretic Peptide 67021Q, Total Protein 4.9L, Albumin 1.7L, Globulin 3.2, Albumin/Globulin Ratio 0.5L, Digoxin Level 0.9 Height (Feet): 5 Height (Inches): 6.00 Weight (Pounds): 157 Objective General Appearance: WD/WN, confused. more responsive, orally intubated Neck: supple Cardiovascular: irregularly irregular Respiratory/Chest: chest wall non-tender, lungs clear, normal breath sounds, no respiratory distress Abdomen: normal bowel sounds, non tender, soft, no organomegaly Edema: no edema noted Arm (L), no edema noted Arm (R), no edema noted Leg (L), no edema noted Leg (R), no edema noted Pedal (L), no edema noted Pedal (R), no edema noted Generalized Neurologic: disoriented Mitchel Reis MD Feb 26, 2019 08:56
--- NOTE | 2019-02-26 09:00 | NUR ---
NURSE NOTES: Pt was seen by Dr Heller and skin on bilateral toes were examined. Per MD, left big toe was covered with dressing. No additional orders received at this time.
[2019-02-26] MEDS ORDERED: Potassium Phosphate 30 MM in NS 275 ML IV ONE (10:00)
--- NOTE | 2019-02-26 10:00 | NUR ---
NURSE NOTES: AM meds were administered. Pt remains on Levophed to maintain SBP above 90. Oral care was done and pt was repositioned. Pt was seen by Dr Reis and Dr Louis. Orders were received to replace Mag, K, Phos levels. Pt will be given Mag 2gm, and Kphos 30mm per Dr Louis's orders.
--- NOTE | 2019-02-26 10:08 | NUR ---
CASE MANAGEMENT:REVIEW 02/26/19 SI: SEPTIC SHOCK. RENAL FAILURE AFIB W/RVR. CARDIOMYOPATHY. INTUBATED 97.7 95 15 85/61 96% ON VENT SUPPORT 40% WBC+15.7 H/H-8.6/25.7 PLT-28 MAG-1.6 BUN+37 CR+1.6 IS: LEVOPHED GTT IV ZOSYN Q12 IV PROTONIX Q12 K-DUR NG BID : ICU STATUS DCP: FROM [facility] PLAN: BIOETHICS
--- NOTE | 2019-02-26 10:12 | Nephrology Progress Note ---
Assessment/Plan Problem List: (1) Acute respiratory failure (2) Septic shock (3) Renal failure (4) Atrial fibrillation with rapid ventricular response (5) Cardiomyopathy Assessment Renal failure - ? Acute on Chronic, Partly dehydration Septic Shock UTI AT Fib with FVR h/o DM, proteinuria , HypoAlbuminemia Plan one dose dig again today K and Mag supplement as needed One dose Venofer stop NS now intubated On 2 pressors max- BP remains low Poor prognosis - remains full code for now slow Hydrate 2D echo EjFx 40% antibiotics monitor renal parameters avoid nephrotoxics per orders Subjective ROS Limited/Unobtainable: Yes Objective Objective Last 24 Hour Vital Signs Date Time Temp Pulse Resp B/P (MAP) Pulse Ox O2 Delivery O2 Flow Rate FiO2 02/26/19 09:30 105 20 109/69 (82) 02/26/19 09:27 96 23 40 02/26/19 09:00 100 19 97/62 (74) 02/26/19 08:30 97 17 93/59 (70) 94 02/26/19 08:00 Endotracheal Tube 02/26/19 08:00 40 02/26/19 08:00 98 18 96/57 (70) 02/26/19 08:00 108 02/26/19 07:45 97 21 102/66 (78) 96 02/26/19 07:42 100 16 40 02/26/19 07:30 98 18 85/61 (69) 02/26/19 07:00 97.7 95 15 93/64 (74) 02/26/19 06:45 96 17 92/60 (71) 02/26/19 06:30 102 17 99/61 (74) 100 02/26/19 06:00 97 17 119/83 (95) 02/26/19 06:00 89/62 02/26/19 05:30 102 15 103/59 (74) 02/26/19 05:15 97 18 40 02/26/19 05:00 102 18 98/56 (70) 100 02/26/19 05:00 94/61 02/26/19 04:56 98/70 02/26/19 04:30 102 21 102/68 (79) 100 02/26/19 04:00 40 02/26/19 04:00 Endotracheal Tube 02/26/19 04:00 102/68 02/26/19 04:00 98.0 99 17 97/66 (76) 100 02/26/19 04:00 97 02/26/19 03:30 101 19 95/60 (72) 02/26/19 03:01 99 17 40 02/26/19 03:00 104/58 02/26/19 03:00 103 16 97/63 (74) 02/26/19 02:30 100 22 98/62 (74) 02/26/19 02:00 96 16 95/66 (76) 100 02/26/19 02:00 93/52 02/26/19 01:30 96 17 95/60 (72) 02/26/19 01:00 105/69 02/26/19 01:00 100 20 98/58 (71) 100 02/26/19 00:57 99 16 40 02/26/19 00:45 101 19 105/69 (81) 100 02/26/19 00:30 95 17 96/58 (71) 100 02/26/19 00:15 106 16 92/61 (71) 100 02/26/19 00:00 97 02/26/19 00:00 Endotracheal Tube 02/26/19 00:00 92/61 02/26/19 00:00 98.0 100 16 101/60 (74) 100 02/26/19 00:00 40 02/25/19 23:30 100 15 103/58 (73) 99 02/25/19 23:15 104 17 82/56 (65) 99 02/25/19 23:11 98 16 40 02/25/19 23:00 97 16 99/61 (74) 99 02/25/19 23:00 82/56 02/25/19 22:45 99 20 98/60 (73) 99 02/25/19 22:30 100 19 98/54 (69) 99 02/25/19 22:15 100 14 99/71 (80) 99 02/25/19 22:00 98/60 02/25/19 22:00 99 16 90/54 (66) 99 02/25/19 21:45 105 23 96/64 (75) 99 02/25/19 21:30 98 16 104/56 (72) 99 02/25/19 21:15 97 16 91/56 (68) 99 02/25/19 21:03 103 98/62 02/25/19 21:02 98/62 02/25/19 21:00 91/56 02/25/19 21:00 102 17 98/62 (74) 99 02/25/19 20:54 102 16 40 02/25/19 20:45 100 16 108/52 (70) 02/25/19 20:30 102 18 100/63 (75) 02/25/19 20:15 99 16 113/57 (75) 100 02/25/19 20:00 110 02/25/19 20:00 40 02/25/19 20:00 Endotracheal Tube 02/25/19 20:00 98.0 100 16 103/47 (65) 100 02/25/19 20:00 113/57 02/25/19 19:45 103 16 115/65 (82) 02/25/19 19:30 108 16 111/62 (78) 100 02/25/19 19:00 105 16 40 02/25/19 19:00 108/58 02/25/19 19:00 108 19 108/58 (75) 100 02/25/19 18:30 104 16 117/66 (83) 100 02/25/19 18:00 105 16 116/59 (78) 100 02/25/19 18:00 116/59 02/25/19 17:30 98.3 106 16 116/91 (99) 100 02/25/19 17:00 107/69 02/25/19 17:00 114 17 107/69 (82) 100 02/25/19 16:34 110 16 40 02/25/19 16:30 107 16 121/64 (83) 100 02/25/19 16:00 111 02/25/19 16:00 99.1 111 16 124/71 (88) 100 02/25/19 16:00 124/71 02/25/19 16:00 40 02/25/19 16:00 Endotracheal Tube 02/25/19 15:30 114 17 123/80 (94) 100 02/25/19 15:00 118/64 02/25/19 15:00 114 17 118/64 (82) 100 02/25/19 14:36 117 16 40 02/25/19 14:30 110 16 117/81 (93) 100 02/25/19 14:00 107 16 108/73 (85) 100 02/25/19 14:00 108/73 02/25/19 13:30 113 16 124/62 (82) 100 02/25/19 13:00 108 16 122/71 (88) 100 02/25/19 13:00 122/71 02/25/19 12:37 112 16 40 02/25/19 12:30 109 16 121/72 (88) 100 02/25/19 12:15 108 16 129/68 (88) 100 02/25/19 12:00 40 02/25/19 12:00 Endotracheal Tube 02/25/19 12:00 121/65 02/25/19 12:00 123 02/25/19 12:00 99.1 113 16 121/65 (83) 100 02/25/19 11:30 117 18 125/67 (86) 100 02/25/19 11:00 108 16 115/71 (86) 100 02/25/19 11:00 115/71 02/25/19 10:46 117 16 40 02/25/19 10:39 112 02/25/19 10:30 112 16 118/74 (89) 100 Intake and Output 02/25/19 02/26/19 19:00 07:00 Intake Total 1560.00 ml 811.25 ml Output Total 1460 ml 495 ml Balance 100.00 ml 316.25 ml Free Water 50 ml IV Total 860.00 ml 211.25 ml Tube Feeding 600 ml 550 ml Other 100 ml Output Urine Total 760 ml 445 ml Stool Total 700 ml 50 ml Laboratory Tests 02/26/19 04:45: White Blood Count 15.7H, Red Blood Count 2.58L, Hemoglobin 8.6L, Hematocrit 25.7L, Mean Corpuscular Volume 100H, Mean Corpuscular Hemoglobin 33.2H, Mean Corpuscular Hemoglobin Concent 33.3, Red Cell Distribution Width 17.1H, Platelet Count 28L, Mean Platelet Volume 5.7L, Neutrophils (%) (Auto) , Lymphocytes (%) (Auto) , Monocytes (%) (Auto) , Eosinophils (%) (Auto) , Basophils (%) (Auto) , Differential Total Cells Counted 100, Neutrophils % ( Manual) 95H, Lymphocytes % (Manual) 2L, Monocytes % (Manual) 3, Eosinophils % ( Manual) 0, Basophils % (Manual) 0, Band Neutrophils 0, Platelet Estimate DecreasedL, Platelet Morphology Normal, Polychromasia 1+, Hypochromasia 1+, Anisocytosis 1+, Macrocytosis 1+, Sodium Level 144, Potassium Level 3.2L, Chloride Level 112H, Carbon Dioxide Level 23, Anion Gap 9, Blood Urea Nitrogen 37H, Creatinine 1.6H, Estimat Glomerular Filtration Rate , Glucose Level 217H, Uric Acid 7.0, Calcium Level 7.2L, Phosphorus Level 2.4L, Magnesium Level 1.6L, Total Bilirubin 1.8H, Direct Bilirubin 1.2H, Aspartate Amino Transf (AST/SGOT) 60H, Alanine Aminotransferase (ALT/SGPT) 39, Alkaline Phosphatase 119H, C- Reactive Protein, Quantitative 3.3H, Pro-B-Type Natriuretic Peptide 41983A, Total Protein 4.9L, Albumin 1.7L, Globulin 3.2, Albumin/Globulin Ratio 0.5L, Digoxin Level 0.9 Height (Feet): 5 Height (Inches): 6.00 Weight (Pounds): 157 General Appearance: no apparent distress Cardiovascular: tachycardia Respiratory/Chest: decreased breath sounds Abdomen: distended Jt Louis MD Feb 26, 2019 10:12
[2019-02-26] MEDS ORDERED: Digoxin 0.5mg/2ml Inj IVP SCH (10:15)
--- NOTE | 2019-02-26 10:40 | Surgery Progress Note ---
Surgery Progress Note Subjective Additional Comments no acute events on support on pressors wound re-evaluated at bedside leukocytosis trending down Objective Last 24 Hour Vital Signs Date Time Temp Pulse Resp B/P (MAP) Pulse Ox O2 Delivery O2 Flow Rate FiO2 02/26/19 09:30 105 20 109/69 (82) 02/26/19 09:27 96 23 40 02/26/19 09:00 100 19 97/62 (74) 02/26/19 08:30 97 17 93/59 (70) 94 02/26/19 08:00 Endotracheal Tube 02/26/19 08:00 40 02/26/19 08:00 98 18 96/57 (70) 02/26/19 08:00 108 02/26/19 07:45 97 21 102/66 (78) 96 02/26/19 07:42 100 16 40 02/26/19 07:30 98 18 85/61 (69) 02/26/19 07:00 97.7 95 15 93/64 (74) 02/26/19 06:45 96 17 92/60 (71) 02/26/19 06:30 102 17 99/61 (74) 100 02/26/19 06:00 97 17 119/83 (95) 02/26/19 06:00 89/62 02/26/19 05:30 102 15 103/59 (74) 02/26/19 05:15 97 18 40 02/26/19 05:00 102 18 98/56 (70) 100 02/26/19 05:00 94/61 02/26/19 04:56 98/70 02/26/19 04:30 102 21 102/68 (79) 100 02/26/19 04:00 40 02/26/19 04:00 Endotracheal Tube 02/26/19 04:00 102/68 02/26/19 04:00 98.0 99 17 97/66 (76) 100 02/26/19 04:00 97 02/26/19 03:30 101 19 95/60 (72) 02/26/19 03:01 99 17 40 02/26/19 03:00 104/58 02/26/19 03:00 103 16 97/63 (74) 02/26/19 02:30 100 22 98/62 (74) 02/26/19 02:00 96 16 95/66 (76) 100 02/26/19 02:00 93/52 02/26/19 01:30 96 17 95/60 (72) 02/26/19 01:00 105/69 02/26/19 01:00 100 20 98/58 (71) 100 02/26/19 00:57 99 16 40 02/26/19 00:45 101 19 105/69 (81) 100 02/26/19 00:30 95 17 96/58 (71) 100 02/26/19 00:15 106 16 92/61 (71) 100 02/26/19 00:00 97 02/26/19 00:00 Endotracheal Tube 02/26/19 00:00 92/61 02/26/19 00:00 98.0 100 16 101/60 (74) 100 02/26/19 00:00 40 02/25/19 23:30 100 15 103/58 (73) 99 02/25/19 23:15 104 17 82/56 (65) 99 02/25/19 23:11 98 16 40 02/25/19 23:00 97 16 99/61 (74) 99 02/25/19 23:00 82/56 02/25/19 22:45 99 20 98/60 (73) 99 02/25/19 22:30 100 19 98/54 (69) 99 02/25/19 22:15 100 14 99/71 (80) 99 02/25/19 22:00 98/60 02/25/19 22:00 99 16 90/54 (66) 99 02/25/19 21:45 105 23 96/64 (75) 99 02/25/19 21:30 98 16 104/56 (72) 99 02/25/19 21:15 97 16 91/56 (68) 99 02/25/19 21:03 103 98/62 02/25/19 21:02 98/62 02/25/19 21:00 91/56 02/25/19 21:00 102 17 98/62 (74) 99 02/25/19 20:54 102 16 40 02/25/19 20:45 100 16 108/52 (70) 02/25/19 20:30 102 18 100/63 (75) 02/25/19 20:15 99 16 113/57 (75) 100 02/25/19 20:00 110 02/25/19 20:00 40 02/25/19 20:00 Endotracheal Tube 02/25/19 20:00 98.0 100 16 103/47 (65) 100 02/25/19 20:00 113/57 02/25/19 19:45 103 16 115/65 (82) 02/25/19 19:30 108 16 111/62 (78) 100 02/25/19 19:00 105 16 40 02/25/19 19:00 108/58 02/25/19 19:00 108 19 108/58 (75) 100 02/25/19 18:30 104 16 117/66 (83) 100 02/25/19 18:00 105 16 116/59 (78) 100 02/25/19 18:00 116/59 02/25/19 17:30 98.3 106 16 116/91 (99) 100 02/25/19 17:00 107/69 02/25/19 17:00 114 17 107/69 (82) 100 02/25/19 16:34 110 16 40 02/25/19 16:30 107 16 121/64 (83) 100 02/25/19 16:00 111 02/25/19 16:00 99.1 111 16 124/71 (88) 100 02/25/19 16:00 124/71 02/25/19 16:00 40 02/25/19 16:00 Endotracheal Tube 02/25/19 15:30 114 17 123/80 (94) 100 02/25/19 15:00 118/64 02/25/19 15:00 114 17 118/64 (82) 100 02/25/19 14:36 117 16 40 02/25/19 14:30 110 16 117/81 (93) 100 02/25/19 14:00 107 16 108/73 (85) 100 02/25/19 14:00 108/73 02/25/19 13:30 113 16 124/62 (82) 100 02/25/19 13:00 108 16 122/71 (88) 100 02/25/19 13:00 122/71 02/25/19 12:37 112 16 40 02/25/19 12:30 109 16 121/72 (88) 100 02/25/19 12:15 108 16 129/68 (88) 100 02/25/19 12:00 40 02/25/19 12:00 Endotracheal Tube 02/25/19 12:00 121/65 02/25/19 12:00 123 02/25/19 12:00 99.1 113 16 121/65 (83) 100 02/25/19 11:30 117 18 125/67 (86) 100 02/25/19 11:00 108 16 115/71 (86) 100 02/25/19 11:00 115/71 02/25/19 10:46 117 16 40 02/25/19 10:39 112 I&O Intake and Output 02/25/19 02/26/19 19:00 07:00 Intake Total 1560.00 ml 811.25 ml Output Total 1460 ml 495 ml Balance 100.00 ml 316.25 ml Free Water 50 ml IV Total 860.00 ml 211.25 ml Tube Feeding 600 ml 550 ml Other 100 ml Output Urine Total 760 ml 445 ml Stool Total 700 ml 50 ml Dressing: dry Wound: clean Drains: other Cardiovascular: RSR Respiratory: clear Abdomen: soft, present bowel sounds Extremities: cyanosis, no tenderness, other Laboratory Tests Test 02/26/19 04:45 White Blood Count 15.7 K/UL (4.8-10.8) H Red Blood Count 2.58 M/UL (4.20-5.40) L Hemoglobin 8.6 G/DL (12.0-16.0) L Hematocrit 25.7 % (37.0-47.0) L Mean Corpuscular Volume 100 FL (80-99) H Mean Corpuscular Hemoglobin 33.2 PG (27.0-31.0) H Mean Corpuscular Hemoglobin Concent 33.3 G/DL (32.0-36.0) Red Cell Distribution Width 17.1 % (11.6-14.8) H Platelet Count 28 K/UL (150-450) L Mean Platelet Volume 5.7 FL (6.5-10.1) L Neutrophils (%) (Auto) % (45.0-75.0) Lymphocytes (%) (Auto) % (20.0-45.0) Monocytes (%) (Auto) % (1.0-10.0) Eosinophils (%) (Auto) % (0.0-3.0) Basophils (%) (Auto) % (0.0-2.0) Differential Total Cells Counted 100 Neutrophils % (Manual) 95 % (45-75) H Lymphocytes % (Manual) 2 % (20-45) L Monocytes % (Manual) 3 % (1-10) Eosinophils % (Manual) 0 % (0-3) Basophils % (Manual) 0 % (0-2) Band Neutrophils 0 % (0-8) Platelet Estimate Decreased L Platelet Morphology Normal Polychromasia 1+ Hypochromasia 1+ Anisocytosis 1+ Macrocytosis 1+ Sodium Level 144 MMOL/L (136-145) Potassium Level 3.2 MMOL/L (3.5-5.1) L Chloride Level 112 MMOL/L (98-107) H Carbon Dioxide Level 23 MMOL/L (21-32) Anion Gap 9 mmol/L (5-15) Blood Urea Nitrogen 37 mg/dL (7-18) H Creatinine 1.6 MG/DL (0.55-1.30) H Estimat Glomerular Filtration Rate mL/min (>60) Glucose Level 217 MG/DL (74-106) H Uric Acid 7.0 MG/DL (2.6-7.2) Calcium Level 7.2 MG/DL (8.5-10.1) L Phosphorus Level 2.4 MG/DL (2.5-4.9) L Magnesium Level 1.6 MG/DL (1.8-2.4) L Total Bilirubin 1.8 MG/DL (0.2-1.0) H Direct Bilirubin 1.2 MG/DL (0.0-0.3) H Aspartate Amino Transf (AST/SGOT) 60 U/L (15-37) H Alanine Aminotransferase (ALT/SGPT) 39 U/L (12-78) Alkaline Phosphatase 119 U/L (46-116) H C-Reactive Protein, Quantitative 3.3 mg/dL (0.00-0.90) H Pro-B-Type Natriuretic Peptide 52027 pg/mL (0-125) H Total Protein 4.9 G/DL (6.4-8.2) L Albumin 1.7 G/DL (3.4-5.0) L Globulin 3.2 g/dL Albumin/Globulin Ratio 0.5 (1.0-2.7) L Digoxin Level 0.9 NG/ML (0.9-2.0) Plan Problems: (1) Septic shock Assessment & Plan: 78-year-old female in septic shock in the intensive care unit on pressors. Leukocytosis, anemia, abnormal labs. Tachycardic. On respiratory support. On examination patient identified to have slowed capillary refill in the distal extremities. Patient furthermore identified to have a weeping wound in the right great toe. Patient is currently very ill and septic and requiring pressors. Unfortunately given her medical condition comorbidities and history there is potential for distal vasoconstriction and potentially even necrosis of the distal aspects but further life-saving measures pressors currently required and necessary and indicated. We will continue to monitor extremities and evaluate them. Will wean off pressors as possible. Lactic acidosis improving. Continue IV antibiotics Wean pressors Appreciate ICU care and management We will follow with recommendations (2) Abdominal pain Assessment & Plan: Chronic liver disease/cirrhosis with signs of portal hypertension including moderate ascites and hepatofugal flow in the portal vein. Gallbladder wall edema nonspecific Bilateral pleural effusions. Medical renal disease Findings: There is extensive artifact from the patient's arms limiting evaluation. Oral contrast was given. Gastrostomy tube is noted in good position. There are small bilateral pleural effusions present with adjacent ill-defined parenchymal density either atelectasis or pneumonia. Correlate clinically. Small pericardial effusion is present and there is generalized cardiomegaly present. Hiatal hernia noted. Aorta and coronary artery calcification present. Mild ascites is demonstrated. No compelling evidence for bowel obstruction. There is extensive diverticulosis involving the colon without obvious diverticulitis. Generalized anasarca noted. The appendix is not seen. The kidneys show no obvious hydronephrosis. The right kidney appears atrophic. There is a suggestion of cysts within the right kidney but this is grossly limited in terms of visualization. The gallbladder is demonstrated. The rectum appears low in location suggestive of prolapse and with a moderate degree of fecal retention. IMPRESSION: Limited evaluation due to artifact. Mild to moderate ascites Trace bilateral pleural effusions. Basilar atelectasis and/or infiltrate. Trace pericardial effusion Generalized cardiomegaly. Atherosclerotic vascular disease Extensive diverticulosis of the colon. No definite diverticulitis. Anasarca Gross catheter Query rectal prolapse (3) Severe sepsis Assessment & Plan: right great toe evaluated and sloth of necrotic cyanotic skin noted. under some black bleeding. slow cap refill Tristan Heller Feb 26, 2019 10:40
--- NOTE | 2019-02-26 11:39 | Infectious Diseases Prog Note ---
Assessment/Plan Assessment/Plan antibiotics ; zosyn A 1. pneumonia s/p rx 2. fungal UTI s/p rx 3. renal failure 4. septic shock 5. CHF 6. dementia 7. thrombocytopenia P 1. d/c zosyn 2. start levoquin 3. will follow up cultures Subjective ROS Limited/Unobtainable: Yes Allergies: Coded Allergies: No Known Allergies (Unverified , 02/19/19) Objective Vital Signs Last 24 Hour Vital Signs Date Time Temp Pulse Resp B/P (MAP) Pulse Ox O2 Delivery O2 Flow Rate FiO2 02/26/19 11:28 101 16 40 02/26/19 11:10 100 02/26/19 09:30 105 20 109/69 (82) 02/26/19 09:27 96 23 40 02/26/19 09:00 100 19 97/62 (74) 02/26/19 08:30 97 17 93/59 (70) 94 02/26/19 08:00 Endotracheal Tube 02/26/19 08:00 40 02/26/19 08:00 98 18 96/57 (70) 02/26/19 08:00 108 02/26/19 07:45 97 21 102/66 (78) 96 02/26/19 07:42 100 16 40 02/26/19 07:30 98 18 85/61 (69) 02/26/19 07:00 97.7 95 15 93/64 (74) 02/26/19 06:45 96 17 92/60 (71) 02/26/19 06:30 102 17 99/61 (74) 100 02/26/19 06:00 97 17 119/83 (95) 02/26/19 06:00 89/62 02/26/19 05:30 102 15 103/59 (74) 02/26/19 05:15 97 18 40 02/26/19 05:00 102 18 98/56 (70) 100 02/26/19 05:00 94/61 02/26/19 04:56 98/70 02/26/19 04:30 102 21 102/68 (79) 100 02/26/19 04:00 40 02/26/19 04:00 Endotracheal Tube 02/26/19 04:00 102/68 02/26/19 04:00 98.0 99 17 97/66 (76) 100 02/26/19 04:00 97 02/26/19 03:30 101 19 95/60 (72) 02/26/19 03:01 99 17 40 02/26/19 03:00 104/58 02/26/19 03:00 103 16 97/63 (74) 02/26/19 02:30 100 22 98/62 (74) 02/26/19 02:00 96 16 95/66 (76) 100 02/26/19 02:00 93/52 02/26/19 01:30 96 17 95/60 (72) 02/26/19 01:00 105/69 02/26/19 01:00 100 20 98/58 (71) 100 02/26/19 00:57 99 16 40 02/26/19 00:45 101 19 105/69 (81) 100 02/26/19 00:30 95 17 96/58 (71) 100 02/26/19 00:15 106 16 92/61 (71) 100 02/26/19 00:00 97 02/26/19 00:00 Endotracheal Tube 02/26/19 00:00 92/61 02/26/19 00:00 98.0 100 16 101/60 (74) 100 02/26/19 00:00 40 02/25/19 23:30 100 15 103/58 (73) 99 02/25/19 23:15 104 17 82/56 (65) 99 02/25/19 23:11 98 16 40 02/25/19 23:00 97 16 99/61 (74) 99 02/25/19 23:00 82/56 02/25/19 22:45 99 20 98/60 (73) 99 02/25/19 22:30 100 19 98/54 (69) 99 02/25/19 22:15 100 14 99/71 (80) 99 02/25/19 22:00 98/60 02/25/19 22:00 99 16 90/54 (66) 99 02/25/19 21:45 105 23 96/64 (75) 99 02/25/19 21:30 98 16 104/56 (72) 99 02/25/19 21:15 97 16 91/56 (68) 99 02/25/19 21:03 103 98/62 02/25/19 21:02 98/62 02/25/19 21:00 91/56 02/25/19 21:00 102 17 98/62 (74) 99 02/25/19 20:54 102 16 40 02/25/19 20:45 100 16 108/52 (70) 02/25/19 20:30 102 18 100/63 (75) 02/25/19 20:15 99 16 113/57 (75) 100 02/25/19 20:00 110 02/25/19 20:00 40 02/25/19 20:00 Endotracheal Tube 02/25/19 20:00 98.0 100 16 103/47 (65) 100 02/25/19 20:00 113/57 02/25/19 19:45 103 16 115/65 (82) 02/25/19 19:30 108 16 111/62 (78) 100 02/25/19 19:00 105 16 40 02/25/19 19:00 108/58 02/25/19 19:00 108 19 108/58 (75) 100 02/25/19 18:30 104 16 117/66 (83) 100 02/25/19 18:00 105 16 116/59 (78) 100 02/25/19 18:00 116/59 02/25/19 17:30 98.3 106 16 116/91 (99) 100 02/25/19 17:00 107/69 02/25/19 17:00 114 17 107/69 (82) 100 02/25/19 16:34 110 16 40 02/25/19 16:30 107 16 121/64 (83) 100 02/25/19 16:00 111 02/25/19 16:00 99.1 111 16 124/71 (88) 100 02/25/19 16:00 124/71 02/25/19 16:00 40 02/25/19 16:00 Endotracheal Tube 02/25/19 15:30 114 17 123/80 (94) 100 02/25/19 15:00 118/64 02/25/19 15:00 114 17 118/64 (82) 100 02/25/19 14:36 117 16 40 02/25/19 14:30 110 16 117/81 (93) 100 02/25/19 14:00 107 16 108/73 (85) 100 02/25/19 14:00 108/73 02/25/19 13:30 113 16 124/62 (82) 100 02/25/19 13:00 108 16 122/71 (88) 100 02/25/19 13:00 122/71 02/25/19 12:37 112 16 40 02/25/19 12:30 109 16 121/72 (88) 100 02/25/19 12:15 108 16 129/68 (88) 100 02/25/19 12:00 40 02/25/19 12:00 Endotracheal Tube 02/25/19 12:00 121/65 02/25/19 12:00 123 02/25/19 12:00 99.1 113 16 121/65 (83) 100 Height (Feet): 5 Height (Inches): 6.00 Weight (Pounds): 157 HEENT: other - intubated Respiratory/Chest: lungs clear Cardiovascular: normal rate, regular rhythm, no gallop/murmur Abdomen: soft, non tender Extremities: no edema Laboratory Tests Test 02/26/19 04:45 White Blood Count 15.7 K/UL (4.8-10.8) H Red Blood Count 2.58 M/UL (4.20-5.40) L Hemoglobin 8.6 G/DL (12.0-16.0) L Hematocrit 25.7 % (37.0-47.0) L Mean Corpuscular Volume 100 FL (80-99) H Mean Corpuscular Hemoglobin 33.2 PG (27.0-31.0) H Mean Corpuscular Hemoglobin Concent 33.3 G/DL (32.0-36.0) Red Cell Distribution Width 17.1 % (11.6-14.8) H Platelet Count 28 K/UL (150-450) L Mean Platelet Volume 5.7 FL (6.5-10.1) L Neutrophils (%) (Auto) % (45.0-75.0) Lymphocytes (%) (Auto) % (20.0-45.0) Monocytes (%) (Auto) % (1.0-10.0) Eosinophils (%) (Auto) % (0.0-3.0) Basophils (%) (Auto) % (0.0-2.0) Differential Total Cells Counted 100 Neutrophils % (Manual) 95 % (45-75) H Lymphocytes % (Manual) 2 % (20-45) L Monocytes % (Manual) 3 % (1-10) Eosinophils % (Manual) 0 % (0-3) Basophils % (Manual) 0 % (0-2) Band Neutrophils 0 % (0-8) Platelet Estimate Decreased L Platelet Morphology Normal Polychromasia 1+ Hypochromasia 1+ Anisocytosis 1+ Macrocytosis 1+ Sodium Level 144 MMOL/L (136-145) Potassium Level 3.2 MMOL/L (3.5-5.1) L Chloride Level 112 MMOL/L (98-107) H Carbon Dioxide Level 23 MMOL/L (21-32) Anion Gap 9 mmol/L (5-15) Blood Urea Nitrogen 37 mg/dL (7-18) H Creatinine 1.6 MG/DL (0.55-1.30) H Estimat Glomerular Filtration Rate mL/min (>60) Glucose Level 217 MG/DL (74-106) H Uric Acid 7.0 MG/DL (2.6-7.2) Calcium Level 7.2 MG/DL (8.5-10.1) L Phosphorus Level 2.4 MG/DL (2.5-4.9) L Magnesium Level 1.6 MG/DL (1.8-2.4) L Total Bilirubin 1.8 MG/DL (0.2-1.0) H Direct Bilirubin 1.2 MG/DL (0.0-0.3) H Aspartate Amino Transf (AST/SGOT) 60 U/L (15-37) H Alanine Aminotransferase (ALT/SGPT) 39 U/L (12-78) Alkaline Phosphatase 119 U/L (46-116) H C-Reactive Protein, Quantitative 3.3 mg/dL (0.00-0.90) H Pro-B-Type Natriuretic Peptide 63730 pg/mL (0-125) H Total Protein 4.9 G/DL (6.4-8.2) L Albumin 1.7 G/DL (3.4-5.0) L Globulin 3.2 g/dL Albumin/Globulin Ratio 0.5 (1.0-2.7) L Digoxin Level 0.9 NG/ML (0.9-2.0) Current Medications Medications (Trade) Dose Ordered Sig/Pam Route PRN Reason Start Time Stop Time Status Last Admin Dose Admin Acetaminophen (Tylenol) 650 mg Q4H PRN ORAL Mild Pain/Temp > 100.5 02/19/19 17:15 03/21/19 17:14 Chlorhexidine Gluconate (Dayna-Hex 2%) 1 applic DAILY@2000 TOPIC 02/20/19 20:00 03/22/19 19:59 02/25/19 20:38 Digoxin (Lanoxin) 0.25 mg ONCE IVP 02/26/19 10:15 02/26/19 12:15 02/26/19 11:10 Fluconazole (Diflucan) 100 mg DAILY ORAL 02/21/19 10:39 02/28/19 10:38 02/26/19 08:21 Iron Sucrose 200 mg/Sodium Chloride 120 ml @ 240 mls/hr ONCE ONCE IV 02/26/19 12:00 02/26/19 12:29 Norepinephrine Bitartrate 16 mg/ Dextrose 500 ml @ 0 mls/hr Q24H IV 02/22/19 12:00 03/24/19 11:59 02/26/19 04:56 Pantoprazole (Protonix) 40 mg Q12HR IVP 02/20/19 21:00 03/21/19 17:59 02/26/19 08:21 Phenylephrine HCl 100 mg/Sodium Chloride 250 ml @ 0 mls/hr Q24H IV 02/19/19 20:15 03/21/19 20:14 02/23/19 09:11 Piperacillin Sod/ Tazobactam Sod 3.375 gm/Sodium Chloride 110 ml @ 27.5 mls/hr Q8HR@0100,0900,1700 IVPB 02/25/19 17:00 03/04/19 16:59 02/26/19 08:21 Potassium Phosphate 30 mm/ Sodium Chloride 285 ml @ 47.5 mls/hr ONCE ONCE IV 02/26/19 10:00 02/26/19 15:59 02/26/19 11:10 Potassium Chloride (K-Dur) 20 meq TWICE A DAY NG 02/25/19 18:00 03/27/19 17:59 02/26/19 08:20 Shelbie Howell MD Feb 26, 2019 11:39
[2019-02-26] MEDS ORDERED: Iron Sucrose 200 MG in NS 110 ML IV ONE (12:00)
[2019-02-26] MEDS ORDERED: Levofloxacin 500mg tab ORAL SCH (12:00)
--- NOTE | 2019-02-26 12:00 | NUR ---
NURSE NOTES: Order is noted for plateletpheresis per Dr Reis. botany technician has been notified to draw peripheral recheck for platelet. Blood bank notified. Pt remains on Levophed at 4mcg/min. FIO2 has been decreased to 35%. VS remain stable. Pt is afebrile.
--- NOTE | 2019-02-26 12:13 | Critical Care Progress Note ---
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, chronic atrial fibrillation, hypertension, diastolic congestive heart failure, septic shock, hypothermia, hypotension, hypoxemia severe PCM, thrombocytopenia, anemia, leukocytosis, acute renal failure tachycardia- improved, no on Vent support PLAN care noted vent management and try to wean monitor met acidosis monitor acid base support as able full code pressors as needed IV antibiotics respiratory care SNF meds supportive care suction and monitor imaging monitor for aspiration oxygen therapy as needed try to wean -d/w RT close follow up of acid base for now remains critical medications/laboratory data/nursing notes/ICU care reviewed in detail note reviewed and edited care discussed with RN and RT ICU time spent 42 minutes Critical Care - Subjective Interval Events: weekend events noted on vent poor LOC ROS Limited/Unobtainable: Yes Condition: critical EKG Rhythm: Sinus Rhythm Residuals: minimal Tube Feeding Tolerated: yes I&O: Intake and Output 02/25/19 02/26/19 19:00 07:00 Intake Total 1560.00 ml 811.25 ml Output Total 1460 ml 495 ml Balance 100.00 ml 316.25 ml Free Water 50 ml IV Total 860.00 ml 211.25 ml Tube Feeding 600 ml 550 ml Other 100 ml Output Urine Total 760 ml 445 ml Stool Total 700 ml 50 ml Critical Care - Objective ET-Tube: 7.0 ET Position: 22 Last 24 Hour Vital Signs Date Time Temp Pulse Resp B/P (MAP) Pulse Ox O2 Delivery O2 Flow Rate FiO2 02/26/19 11:28 101 16 40 02/26/19 11:10 100 02/26/19 09:30 105 20 109/69 (82) 02/26/19 09:27 96 23 40 02/26/19 09:00 100 19 97/62 (74) 02/26/19 08:30 97 17 93/59 (70) 94 02/26/19 08:00 Endotracheal Tube 02/26/19 08:00 40 02/26/19 08:00 98 18 96/57 (70) 02/26/19 08:00 108 02/26/19 07:45 97 21 102/66 (78) 96 02/26/19 07:42 100 16 40 02/26/19 07:30 98 18 85/61 (69) 02/26/19 07:00 97.7 95 15 93/64 (74) 02/26/19 06:45 96 17 92/60 (71) 02/26/19 06:30 102 17 99/61 (74) 100 02/26/19 06:00 97 17 119/83 (95) 02/26/19 06:00 89/62 02/26/19 05:30 102 15 103/59 (74) 02/26/19 05:15 97 18 40 02/26/19 05:00 102 18 98/56 (70) 100 02/26/19 05:00 94/61 02/26/19 04:56 98/70 02/26/19 04:30 102 21 102/68 (79) 100 02/26/19 04:00 40 02/26/19 04:00 Endotracheal Tube 02/26/19 04:00 102/68 02/26/19 04:00 98.0 99 17 97/66 (76) 100 02/26/19 04:00 97 02/26/19 03:30 101 19 95/60 (72) 02/26/19 03:01 99 17 40 02/26/19 03:00 104/58 02/26/19 03:00 103 16 97/63 (74) 02/26/19 02:30 100 22 98/62 (74) 02/26/19 02:00 96 16 95/66 (76) 100 02/26/19 02:00 93/52 02/26/19 01:30 96 17 95/60 (72) 02/26/19 01:00 105/69 02/26/19 01:00 100 20 98/58 (71) 100 02/26/19 00:57 99 16 40 02/26/19 00:45 101 19 105/69 (81) 100 02/26/19 00:30 95 17 96/58 (71) 100 02/26/19 00:15 106 16 92/61 (71) 100 02/26/19 00:00 97 02/26/19 00:00 Endotracheal Tube 02/26/19 00:00 92/61 02/26/19 00:00 98.0 100 16 101/60 (74) 100 02/26/19 00:00 40 02/25/19 23:30 100 15 103/58 (73) 99 02/25/19 23:15 104 17 82/56 (65) 99 02/25/19 23:11 98 16 40 11/17/19 23:00 97 16 99/61 (74) 99 02/25/19 23:00 82/56 02/25/19 22:45 99 20 98/60 (73) 99 02/25/19 22:30 100 19 98/54 (69) 99 02/25/19 22:15 100 14 99/71 (80) 99 02/25/19 22:00 98/60 02/25/19 22:00 99 16 90/54 (66) 99 02/25/19 21:45 105 23 96/64 (75) 99 02/25/19 21:30 98 16 104/56 (72) 99 02/25/19 21:15 97 16 91/56 (68) 99 02/25/19 21:03 103 98/62 02/25/19 21:02 98/62 02/25/19 21:00 91/56 02/25/19 21:00 102 17 98/62 (74) 99 02/25/19 20:54 102 16 40 02/25/19 20:45 100 16 108/52 (70) 02/25/19 20:30 102 18 100/63 (75) 02/25/19 20:15 99 16 113/57 (75) 100 02/25/19 20:00 110 02/25/19 20:00 40 02/25/19 20:00 Endotracheal Tube 02/25/19 20:00 98.0 100 16 103/47 (65) 100 02/25/19 20:00 113/57 02/25/19 19:45 103 16 115/65 (82) 02/25/19 19:30 108 16 111/62 (78) 100 02/25/19 19:00 105 16 40 02/25/19 19:00 108/58 02/25/19 19:00 108 19 108/58 (75) 100 02/25/19 18:30 104 16 117/66 (83) 100 02/25/19 18:00 105 16 116/59 (78) 100 02/25/19 18:00 116/59 02/25/19 17:30 98.3 106 16 116/91 (99) 100 02/25/19 17:00 107/69 02/25/19 17:00 114 17 107/69 (82) 100 02/25/19 16:34 110 16 40 02/25/19 16:30 107 16 121/64 (83) 100 02/25/19 16:00 111 02/25/19 16:00 99.1 111 16 124/71 (88) 100 02/25/19 16:00 124/71 02/25/19 16:00 40 02/25/19 16:00 Endotracheal Tube 02/25/19 15:30 114 17 123/80 (94) 100 02/25/19 15:00 118/64 02/25/19 15:00 114 17 118/64 (82) 100 02/25/19 14:36 117 16 40 02/25/19 14:30 110 16 117/81 (93) 100 02/25/19 14:00 107 16 108/73 (85) 100 02/25/19 14:00 108/73 02/25/19 13:30 113 16 124/62 (82) 100 02/25/19 13:00 108 16 122/71 (88) 100 02/25/19 13:00 122/71 02/25/19 12:37 112 16 40 02/25/19 12:30 109 16 121/72 (88) 100 02/25/19 12:15 108 16 129/68 (88) 100 Labs: Labs Test 02/23/19 14:15 02/23/19 20:50 02/24/19 07:38 02/24/19 09:20 Lactic Acid Level 2.10 mmol/L (0.4-2.0) 2.00 mmol/L (0.4-2.0) 2.10 mmol/L (0.4-2.0) 2.10 mmol/L (0.66-2.22) White Blood Count 14.3 K/UL (4.8-10.8) Red Blood Count 2.78 M/UL (4.20-5.40) Hemoglobin 9.0 G/DL (12.0-16.0) Hematocrit 28.4 % (37.0-47.0) Mean Corpuscular Volume 102 FL (80-99) Mean Corpuscular Hemoglobin 32.4 PG (27.0-31.0) Mean Corpuscular Hemoglobin Concent 31.7 G/DL (32.0-36.0) Red Cell Distribution Width 19.5 % (11.6-14.8) Platelet Count 51 K/UL (150-450) Mean Platelet Volume 7.5 FL (6.5-10.1) Neutrophils (%) (Auto) % (45.0-75.0) Lymphocytes (%) (Auto) % (20.0-45.0) Monocytes (%) (Auto) % (1.0-10.0) Eosinophils (%) (Auto) % (0.0-3.0) Basophils (%) (Auto) % (0.0-2.0) Differential Total Cells Counted 100 Neutrophils % (Manual) 96 % (45-75) Lymphocytes % (Manual) 1 % (20-45) Monocytes % (Manual) 3 % (1-10) Eosinophils % (Manual) 0 % (0-3) Basophils % (Manual) 0 % (0-2) Band Neutrophils 0 % (0-8) Platelet Estimate Decreased Platelet Morphology Normal Polychromasia 1+ Hypochromasia 1+ Anisocytosis 2+ Macrocytosis 2+ Ovalocytes Occasional Sodium Level 132 MMOL/L (136-145) Potassium Level 2.8 MMOL/L (3.5-5.1) Chloride Level 103 MMOL/L (98-107) Carbon Dioxide Level 24 MMOL/L (21-32) Anion Gap 7 mmol/L (5-15) Blood Urea Nitrogen 43 mg/dL (7-18) Creatinine 2.0 MG/DL (0.55-1.30) Estimat Glomerular Filtration Rate mL/min (>60) Glucose Level 218 MG/DL (74-106) Calcium Level 7.3 MG/DL (8.5-10.1) Total Bilirubin 2.7 MG/DL (0.2-1.0) Direct Bilirubin 1.7 MG/DL (0.0-0.3) Aspartate Amino Transf (AST/SGOT) 59 U/L (15-37) Alanine Aminotransferase (ALT/SGPT) 34 U/L (12-78) Alkaline Phosphatase 74 U/L (46-116) Total Protein 5.0 G/DL (6.4-8.2) Albumin 1.8 G/DL (3.4-5.0) Globulin 3.2 g/dL Albumin/Globulin Ratio 0.6 (1.0-2.7) Test 02/24/19 15:34 02/24/19 18:40 02/24/19 20:43 02/25/19 04:20 Lactic Acid Level 2.10 mmol/L (0.4-2.0) 2.00 mmol/L (0.4-2.0) 2.40 mmol/L (0.4-2.0) Arterial Blood pH 7.484 (7.350-7.450) Arterial Blood Partial Pressure CO2 26.7 mmHg (35.0-45.0) Arterial Blood Partial Pressure O2 105.8 mmHg (75.0-100.0) Arterial Blood HCO3 19.6 mmol/L (22.0-26.0) Arterial Blood Oxygen Saturation 97.5 % (95-100) Arterial Blood Base Excess -2.9 (-2-2) Melchor Test Positive White Blood Count 17.1 K/UL (4.8-10.8) Red Blood Count 2.63 M/UL (4.20-5.40) Hemoglobin 8.7 G/DL (12.0-16.0) Hematocrit 27.2 % (37.0-47.0) Mean Corpuscular Volume 103 FL (80-99) Mean Corpuscular Hemoglobin 33.0 PG (27.0-31.0) Mean Corpuscular Hemoglobin Concent 32.0 G/DL (32.0-36.0) Red Cell Distribution Width 19.0 % (11.6-14.8) Platelet Count 54 K/UL (150-450) Mean Platelet Volume 7.7 FL (6.5-10.1) Neutrophils (%) (Auto) % (45.0-75.0) Lymphocytes (%) (Auto) % (20.0-45.0) Monocytes (%) (Auto) % (1.0-10.0) Eosinophils (%) (Auto) % (0.0-3.0) Basophils (%) (Auto) % (0.0-2.0) Differential Total Cells Counted 100 Neutrophils % (Manual) 94 % (45-75) Lymphocytes % (Manual) 2 % (20-45) Monocytes % (Manual) 4 % (1-10) Eosinophils % (Manual) 0 % (0-3) Basophils % (Manual) 0 % (0-2) Band Neutrophils 0 % (0-8) Platelet Estimate Decreased Platelet Morphology Normal Polychromasia 1+ Hypochromasia 1+ Anisocytosis 2+ Macrocytosis 2+ Sodium Level 142 MMOL/L (136-145) Potassium Level 2.7 MMOL/L (3.5-5.1) Chloride Level 108 MMOL/L (98-107) Carbon Dioxide Level 24 MMOL/L (21-32) Anion Gap 9 mmol/L (5-15) Blood Urea Nitrogen 42 mg/dL (7-18) Creatinine 1.9 MG/DL (0.55-1.30) Estimat Glomerular Filtration Rate mL/min (>60) Glucose Level 258 MG/DL (74-106) Calcium Level 7.7 MG/DL (8.5-10.1) Phosphorus Level 2.1 MG/DL (2.5-4.9) Magnesium Level 1.6 MG/DL (1.8-2.4) Total Bilirubin 2.1 MG/DL (0.2-1.0) Direct Bilirubin 1.4 MG/DL (0.0-0.3) Aspartate Amino Transf (AST/SGOT) 59 U/L (15-37) Alanine Aminotransferase (ALT/SGPT) 41 U/L (12-78) Alkaline Phosphatase 107 U/L (46-116) Troponin I 0.164 ng/mL (0.000-0.056) C-Reactive Protein, Quantitative 3.7 mg/dL (0.00-0.90) Pro-B-Type Natriuretic Peptide > 85392 pg/mL (0-125) Total Protein 5.2 G/DL (6.4-8.2) Albumin 1.9 G/DL (3.4-5.0) Globulin 3.3 g/dL Albumin/Globulin Ratio 0.6 (1.0-2.7) Digoxin Level 0.4 NG/ML (0.9-2.0) Test 02/25/19 10:05 02/26/19 04:45 02/26/19 11:45 Prothrombin Time 16.2 SEC (9.30-11.50) Prothromb Time International Ratio 1.6 (0.9-1.1) Activated Partial Thromboplast Time 41 SEC (23-33) Lactic Acid Level 2.00 mmol/L (0.4-2.0) White Blood Count 15.7 K/UL (4.8-10.8) Red Blood Count 2.58 M/UL (4.20-5.40) Hemoglobin 8.6 G/DL (12.0-16.0) Hematocrit 25.7 % (37.0-47.0) Mean Corpuscular Volume 100 FL (80-99) Mean Corpuscular Hemoglobin 33.2 PG (27.0-31.0) Mean Corpuscular Hemoglobin Concent 33.3 G/DL (32.0-36.0) Red Cell Distribution Width 17.1 % (11.6-14.8) Platelet Count 28 K/UL (150-450) Mean Platelet Volume 5.7 FL (6.5-10.1) Neutrophils (%) (Auto) % (45.0-75.0) Lymphocytes (%) (Auto) % (20.0-45.0) Monocytes (%) (Auto) % (1.0-10.0) Eosinophils (%) (Auto) % (0.0-3.0) Basophils (%) (Auto) % (0.0-2.0) Differential Total Cells Counted 100 Neutrophils % (Manual) 95 % (45-75) Lymphocytes % (Manual) 2 % (20-45) Monocytes % (Manual) 3 % (1-10) Eosinophils % (Manual) 0 % (0-3) Basophils % (Manual) 0 % (0-2) Band Neutrophils 0 % (0-8) Platelet Estimate Decreased Platelet Morphology Normal Polychromasia 1+ Hypochromasia 1+ Anisocytosis 1+ Macrocytosis 1+ Sodium Level 144 MMOL/L (136-145) Potassium Level 3.2 MMOL/L (3.5-5.1) Chloride Level 112 MMOL/L (98-107) Carbon Dioxide Level 23 MMOL/L (21-32) Anion Gap 9 mmol/L (5-15) Blood Urea Nitrogen 37 mg/dL (7-18) Creatinine 1.6 MG/DL (0.55-1.30) Estimat Glomerular Filtration Rate mL/min (>60) Glucose Level 217 MG/DL (74-106) Uric Acid 7.0 MG/DL (2.6-7.2) Calcium Level 7.2 MG/DL (8.5-10.1) Phosphorus Level 2.4 MG/DL (2.5-4.9) Magnesium Level 1.6 MG/DL (1.8-2.4) Total Bilirubin 1.8 MG/DL (0.2-1.0) Direct Bilirubin 1.2 MG/DL (0.0-0.3) Aspartate Amino Transf (AST/SGOT) 60 U/L (15-37) Alanine Aminotransferase (ALT/SGPT) 39 U/L (12-78) Alkaline Phosphatase 119 U/L (46-116) C-Reactive Protein, Quantitative 3.3 mg/dL (0.00-0.90) Pro-B-Type Natriuretic Peptide 60817 pg/mL (0-125) Total Protein 4.9 G/DL (6.4-8.2) Albumin 1.7 G/DL (3.4-5.0) Globulin 3.2 g/dL Albumin/Globulin Ratio 0.5 (1.0-2.7) Digoxin Level 0.9 NG/ML (0.9-2.0) Objective: PHYSICAL EXAMINATION: GENERAL: The patient is a chronically ill-appearing female, on VENT and not weaning yet NECK: Supple. There is a central line in the right subclavian area. HEART: tachy RR.without MRG LUNGS: reduced breath sounds with some rhonchi; no wheeze ABDOMEN: Soft, nontender, nondistended. no HSM EXTREMITIES: No clubbing, cyanosis, or edema. NEURO: response to pain skin noted Accucheck: 72 Jan Anderson MD Feb 26, 2019 12:12
[2019-02-26 12:25] LABS: HEMATOCRIT 27.4 % (37.0-47.0); HEMOGLOBIN 8.7 G/DL (12.0-16.0); MEAN CORPUSCULAR VOLUME 103 FL (80-99); PLATELET COUNT 24 K/UL (150-450); RED BLOOD COUNT 2.66 M/UL (4.20-5.40); RED CELL DISTRIBUTION WIDTH 17.5 % (11.6-14.8); WHITE BLOOD COUNT 14.6 K/UL (4.8-10.8)
--- NOTE | 2019-02-26 14:00 | NUR ---
NURSE NOTES: Pt was seen by Dr Saldana. Order for CDiff collected has been cancelled by since pt was on Lactulose. Pt remains stable while on Levophed at 4mcg/min. Pt was repositioned.
--- NOTE | 2019-02-26 15:30 | Progress Note ---
DATE: 02/26/2019 CARDIOLOGY PROGRESS NOTE SUBJECTIVE: The patient remains critical and guarded in the intensive care unit on pressor support. She is more alert, remaining orally intubated and mechanically ventilated. OBJECTIVE: VITAL SIGNS: Blood pressure 93/59, pulse 97, respirations 17. Monitored rhythm, AFib. HEENT: Orally intubated. LUNGS: Diminished breath sounds. Few rhonchi. HEART: Irregularly irregular rhythm. Normal S1, paradoxically split S2. ABDOMEN: Soft. EXTREMITIES: 2+ edema. DIAGNOSTIC DATA: Monitored AFib, ventricular ectopy, bundle-branch block. LABORATORY DATA: White count 15.7, hemoglobin 8.6. Potassium 3.2, BUN 37, and creatinine 1.6. Magnesium 1.6. Pro-natriuretic peptide 28,000. Albumin 1.7. IMPRESSION: 1. Respiratory failure. 2. Sepsis with shock. 3. Hypokalemia. 4. Hypomagnesemia. 5. Acute on chronic systolic and diastolic right-sided congestive heart failure. 6. Severe protein-calorie malnutrition. 7. Cirrhosis with ascites. 8. Toxic and metabolic encephalopathies. PLAN: 1. Tapering off pressors. 2. Weaning efforts off ventilator. 3. Replacing potassium and magnesium based on lab results, the latter intravenously. 4. Cannot diurese at this time. 5. We would not give additional digitalis in view of advanced conduction system disease. 6. The patient is now off steroids. 7. The patient remains high risk, critical and guarded. Jimmie Mason M.D. DR: JOELLEN JOB#: [id number] CC: CHRISTINE
--- NOTE | 2019-02-26 15:39 | NUR ---
*-* INSURANCE *-* ALL CLINICALS AND REVIEWS HAVE BEEN FAXED TO: MARGARITA Clement Ref#[id number] CM: Dung #[phone] ext [phone] fax#[phone]
--- NOTE | 2019-02-26 18:00 | NUR ---
NURSE NOTES: Pt was cleaned, gown and bed linens were changed. Oral care was done, and pt repositioned with bilateral extremities elevated on pillows. VS remain stable while pt is maintained on Levophed at 4mcg/min.
--- NOTE | 2019-02-26 19:30 | NUR ---
HAND-OFF: Report given to Jaya RN. Endorsed plan of care. VS remain stable.
--- NOTE | 2019-02-26 19:35 | NUR ---
NURSE NOTES: Received patient and report from ANDREINA Lopez. Pt's in no acute distress. Pt's resting in bed, open eyes, responsive to light stimuli, intubated with ETT 7.0, 22 lipline, with setting AC16, TV550, FiO2 35%. Rectal tube noted draining liquid brown stool due to lactulose. Gross noted and intact with small clear yellow urine output. Right IJ noted, intact, clamped. Left upper arm PICC line, running Levophed at 4mcg/min. Bilateral soft wrist restraints for safety note and intact. Bed in low and locked position. Call light within reach. Bed alarm is on. Will continue to monitor and continue plan of care.
--- NOTE | 2019-02-26 20:49 | General Progress Note ---
Assessment/Plan Status: stable, not improved, deteriorating Assessment/Plan: Assessment - GT dependent - Hepatitis C (+) - Abnormal LFT, ascites - suspect chronic liver disease - Lactic acidosis - Resp failure - OBS / Delirium - Azotemia - Diarrhea - poor PX Recommendations - d/c lactulose - check C diff if diarrhea persists - supportive care - Abx per ID - agree with DNR Subjective Allergies: Coded Allergies: No Known Allergies (Unverified , 02/19/19) Subjective Above noted seen this am in ICU intubated unresponsive d/w RN Objective Last 24 Hour Vital Signs Date Time Temp Pulse Resp B/P (MAP) Pulse Ox O2 Delivery O2 Flow Rate FiO2 02/26/19 19:30 99 16 95/66 (76) 02/26/19 19:01 103 16 40 02/26/19 19:00 103 14 95/65 (75) 02/26/19 19:00 99/70 02/26/19 18:30 98 4 100/58 (72) 02/26/19 18:00 98/68 02/26/19 18:00 112 19 113/65 (81) 97 02/26/19 17:30 95/66 02/26/19 17:30 105 18 121/61 (81) 02/26/19 17:21 102 16 40 02/26/19 17:00 100 16 94/64 (74) 02/26/19 16:30 103 17 98/59 (72) 02/26/19 16:00 Endotracheal Tube 02/26/19 16:00 102 02/26/19 16:00 35 02/26/19 16:00 97.6 105 19 98/63 (75) 02/26/19 15:30 110 16 109/65 (80) 02/26/19 15:15 113 18 40 02/26/19 15:00 97 16 96/59 (71) 02/26/19 14:30 105 17 93/60 (71) 92 02/26/19 14:00 100 16 100/60 (73) 100 02/26/19 13:30 106 16 98/61 (73) 92 02/26/19 13:02 98 16 40 02/26/19 13:00 101 16 95/57 (70) 02/26/19 12:30 97 16 103/61 (75) 02/26/19 12:00 Endotracheal Tube 02/26/19 12:00 35 02/26/19 12:00 99 02/26/19 12:00 97.7 101 18 96/58 (71) 02/26/19 11:30 97 18 111/62 (78) 02/26/19 11:28 101 16 40 02/26/19 11:10 100 02/26/19 11:00 101 17 94/62 (73) 02/26/19 10:30 96 17 92/53 (66) 02/26/19 10:00 103 18 90/62 (71) 02/26/19 09:30 105 20 109/69 (82) 02/26/19 09:27 96 23 40 02/26/19 09:00 100 19 97/62 (74) 02/26/19 08:30 97 17 93/59 (70) 94 02/26/19 08:00 Endotracheal Tube 02/26/19 08:00 40 02/26/19 08:00 98 18 96/57 (70) 02/26/19 08:00 108 02/26/19 07:45 97 21 102/66 (78) 96 02/26/19 07:42 100 16 40 02/26/19 07:30 98 18 85/61 (69) 02/26/19 07:00 97.7 95 15 93/64 (74) 02/26/19 06:45 96 17 92/60 (71) 02/26/19 06:30 102 17 99/61 (74) 100 02/26/19 06:00 97 17 119/83 (95) 02/26/19 06:00 89/62 02/26/19 05:30 102 15 103/59 (74) 02/26/19 05:15 97 18 40 02/26/19 05:00 102 18 98/56 (70) 100 02/26/19 05:00 94/61 02/26/19 04:56 98/70 02/26/19 04:30 102 21 102/68 (79) 100 02/26/19 04:00 40 02/26/19 04:00 Endotracheal Tube 02/26/19 04:00 102/68 02/26/19 04:00 98.0 99 17 97/66 (76) 100 02/26/19 04:00 97 02/26/19 03:30 101 19 95/60 (72) 02/26/19 03:01 99 17 40 02/26/19 03:00 104/58 02/26/19 03:00 103 16 97/63 (74) 02/26/19 02:30 100 22 98/62 (74) 02/26/19 02:00 96 16 95/66 (76) 100 02/26/19 02:00 93/52 02/26/19 01:30 96 17 95/60 (72) 02/26/19 01:00 105/69 02/26/19 01:00 100 20 98/58 (71) 100 02/26/19 00:57 99 16 40 02/26/19 00:45 101 19 105/69 (81) 100 02/26/19 00:30 95 17 96/58 (71) 100 02/26/19 00:15 106 16 92/61 (71) 100 02/26/19 00:00 97 02/26/19 00:00 Endotracheal Tube 02/26/19 00:00 92/61 02/26/19 00:00 98.0 100 16 101/60 (74) 100 02/26/19 00:00 40 02/25/19 23:30 100 15 103/58 (73) 99 02/25/19 23:15 104 17 82/56 (65) 99 02/25/19 23:11 98 16 40 02/25/19 23:00 97 16 99/61 (74) 99 02/25/19 23:00 82/56 02/25/19 22:45 99 20 98/60 (73) 99 02/25/19 22:30 100 19 98/54 (69) 99 02/25/19 22:15 100 14 99/71 (80) 99 02/25/19 22:00 98/60 02/25/19 22:00 99 16 90/54 (66) 99 02/25/19 21:45 105 23 96/64 (75) 99 02/25/19 21:30 98 16 104/56 (72) 99 02/25/19 21:15 97 16 91/56 (68) 99 02/25/19 21:03 103 98/62 02/25/19 21:02 98/62 02/25/19 21:00 91/56 02/25/19 21:00 102 17 98/62 (74) 99 02/25/19 20:54 102 16 40 Intake and Output 02/25/19 02/26/19 19:00 07:00 Intake Total 1560.00 ml 818.75 ml Output Total 1460 ml 495 ml Balance 100.00 ml 323.75 ml Free Water 50 ml IV Total 860.00 ml 218.75 ml Tube Feeding 600 ml 550 ml Other 100 ml Output Urine Total 760 ml 445 ml Stool Total 700 ml 50 ml Laboratory Tests 02/26/19 04:45: White Blood Count 15.7H, Red Blood Count 2.58L, Hemoglobin 8.6L, Hematocrit 25.7L, Mean Corpuscular Volume 100H, Mean Corpuscular Hemoglobin 33.2H, Mean Corpuscular Hemoglobin Concent 33.3, Red Cell Distribution Width 17.1H, Platelet Count 28L, Mean Platelet Volume 5.7L, Neutrophils (%) (Auto) , Lymphocytes (%) (Auto) , Monocytes (%) (Auto) , Eosinophils (%) (Auto) , Basophils (%) (Auto) , Differential Total Cells Counted 100, Neutrophils % ( Manual) 95H, Lymphocytes % (Manual) 2L, Monocytes % (Manual) 3, Eosinophils % ( Manual) 0, Basophils % (Manual) 0, Band Neutrophils 0, Platelet Estimate DecreasedL, Platelet Morphology Normal, Polychromasia 1+, Hypochromasia 1+, Anisocytosis 1+, Macrocytosis 1+, Sodium Level 144, Potassium Level 3.2L, Chloride Level 112H, Carbon Dioxide Level 23, Anion Gap 9, Blood Urea Nitrogen 37H, Creatinine 1.6H, Estimat Glomerular Filtration Rate , Glucose Level 217H, Uric Acid 7.0, Calcium Level 7.2L, Phosphorus Level 2.4L, Magnesium Level 1.6L, Total Bilirubin 1.8H, Direct Bilirubin 1.2H, Aspartate Amino Transf (AST/SGOT) 60H, Alanine Aminotransferase (ALT/SGPT) 39, Alkaline Phosphatase 119H, C- Reactive Protein, Quantitative 3.3H, Pro-B-Type Natriuretic Peptide 23748H, Total Protein 4.9L, Albumin 1.7L, Globulin 3.2, Albumin/Globulin Ratio 0.5L, Digoxin Level 0.9 02/26/19 11:45: White Blood Count 14.6H, Red Blood Count 2.66L, Hemoglobin 8.7L, Hematocrit 27.4L, Mean Corpuscular Volume 103H, Mean Corpuscular Hemoglobin 32.7H, Mean Corpuscular Hemoglobin Concent 31.7L, Red Cell Distribution Width 17.5H, Platelet Count 24L, Mean Platelet Volume 6.0L, Neutrophils (%) (Auto) , Lymphocytes (%) (Auto) , Monocytes (%) (Auto) , Eosinophils (%) (Auto) , Basophils (%) (Auto) , Differential Total Cells Counted 100, Neutrophils % ( Manual) 95H, Lymphocytes % (Manual) 2L, Monocytes % (Manual) 3, Eosinophils % ( Manual) 0, Basophils % (Manual) 0, Band Neutrophils 0, Platelet Estimate DecreasedL, Platelet Morphology Normal, Polychromasia 1+, Hypochromasia 1+, Anisocytosis 1+, Macrocytosis 2+ Height (Feet): 5 Height (Inches): 6.00 Weight (Pounds): 157 Objective WDWN NCAT Supple Coarse ronchi RR abd soft ND NT, (+) GT obtunded César Saldana MD Feb 26, 2019 20:48
[2019-02-26] MEDS: Dyna-Hex 2% Top Sol 2oz TOPIC SCH (21:13)
--- NOTE | 2019-02-26 22:00 | NUR ---
NURSE NOTES: Pt's resting in bed, in no acute distress, afebrile. VS stable. Will continue to monitor.
[2019-02-27] VITALS (52 sets, daily range): BP systolic 83–120; BP diastolic 43–76
--- NOTE | 2019-02-27 | NUR ---
NURSE NOTES: Pt's resting in bed , asleep with eyes closed, VS stable. Levophed has been titrating down to 3mcg/min. Will continue to monitor.
--- NOTE | 2019-02-27 02:00 | NUR ---
NURSE NOTES: Pt's resting in bed, in no acute distress. Afib on ekg monitor. VS stable. Continue with Levophed at 4mcg/min. Will continue to monitor.
--- NOTE | 2019-02-27 04:00 | NUR ---
NURSE NOTES: Pt's resting in bed, asleep with eyes closed. VS stable. Will continue to monitor.
--- NOTE | 2019-02-27 06:00 | NUR ---
NURSE NOTES: Pt's resting in bed, increased Levophed to 6mcg/min due to drop of BP, otherwise VS stable, in no acute distress. Dr Reis at the bedside. Will continue to monitor.
--- NOTE | 2019-02-27 07:00 | NUR ---
RESPIRATORY NOTES: Received Patient on Vent settings ACVC RR 16, VT 500, Fio2 35% PEEP +5. Patient has a 7.0 ETT at 22 cm at the lip, secured with anchorfast. Suctioned a minimal amount of brown thick secretions. Patient lying in bed comfortable. Vent plugged into red outlet. Alarms are on and audible. Will continue to monitor patient throughout the day.
--- NOTE | 2019-02-27 07:30 | NUR ---
HAND-OFF: Report given to ANDREINA Samuel.
--- NOTE | 2019-02-27 08:15 | NUR ---
NURSE NOTES: patient repositioned and assessed at the bedside, tube feeding remains running at 50ml/hr with 10ml of residual, Gross remains draining straw colored urine, rectal tube is draining brown liquid stool,
--- NOTE | 2019-02-27 08:31 | Critical Care Progress Note ---
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, chronic atrial fibrillation, hypertension, diastolic congestive heart failure, septic shock, hypothermia, hypotension, hypoxemia severe PCM, thrombocytopenia, anemia, leukocytosis, acute renal failure Vent support PLAN care noted vent management and try to wean- discussed monitor secretions and vent settings monitor acid base support as able full code as outline pressors as needed- on levophed IV antibiotics and cultures noted respiratory care SNF meds supportive care suction and monitor imaging monitor for aspiration and change oxygen therapy as needed try to wean if able close follow up of acid base for now remains critical at present medications/laboratory data/nursing notes/ICU care reviewed in detail note reviewed and edited care discussed with RN and RT ICU time spent 40 minutes Critical Care - Subjective Interval Events: vent support noted RT reviewed secretions noted ICU care noted still hypotensive in afib hemodynamics reviewed ROS Limited/Unobtainable: Yes Condition: critical EKG Rhythm: Sinus Rhythm Residuals: minimal Tube Feeding Tolerated: yes I&O: Intake and Output 02/26/19 02/27/19 19:00 07:00 Intake Total 1720.0 ml 743.27 ml Output Total 480 ml 430 ml Balance 1240.0 ml 313.27 ml Free Water 180 ml 60 ml IV Total 940.0 ml 83.27 ml Tube Feeding 600 ml 600 ml Output Urine Total 430 ml 380 ml Stool Total 50 ml 50 ml Critical Care - Objective ET-Tube: 7.0 ET Position: 22 Last 24 Hour Vital Signs Date Time Temp Pulse Resp B/P (MAP) Pulse Ox O2 Delivery O2 Flow Rate FiO2 02/27/19 07:43 35 02/27/19 07:30 100 25 91/61 (71) 02/27/19 07:09 114 25 90/57 (68) 02/27/19 07:03 140 16 35 02/27/19 07:00 91/61 02/27/19 07:00 108 18 86/49 (61) 100 02/27/19 06:30 114 18 94/59 (71) 02/27/19 06:00 111 23 97/53 (68) 100 02/27/19 06:00 86/57 02/27/19 05:30 106 20 91/55 (67) 02/27/19 05:08 103 17 40 02/27/19 05:00 91/55 02/27/19 05:00 112 24 93/49 (64) 99 02/27/19 04:30 104 16 89/56 (67) 99 02/27/19 04:00 35 02/27/19 04:00 Endotracheal Tube 02/27/19 04:00 108 22 99/43 (61) 98 02/27/19 04:00 102 02/27/19 04:00 89/56 02/27/19 03:30 109 24 96/57 (70) 98 02/27/19 03:00 96/57 02/27/19 03:00 108 18 106/56 (73) 98 02/27/19 02:51 97 16 40 02/27/19 02:30 107 16 109/76 (87) 99 02/27/19 02:00 101 16 107/58 (74) 02/27/19 02:00 83/60 02/27/19 01:30 104 16 83/51 (62) 02/27/19 01:28 104 16 103/53 (70) 100 02/27/19 01:22 113 18 40 02/27/19 01:00 93/63 02/27/19 01:00 104 16 83/58 (66) 99 02/27/19 00:30 107 18 90/60 (70) 02/27/19 00:00 107 19 98/52 (67) 100 02/27/19 00:00 90/58 02/27/19 00:00 Endotracheal Tube 02/27/19 00:00 35 02/27/19 00:00 104 02/26/19 23:45 105 16 96/54 (68) 02/26/19 23:30 109 21 103/59 (74) 02/26/19 23:21 111 17 40 02/26/19 23:15 103 16 87/56 (66) 02/26/19 23:00 100 16 98/55 (69) 02/26/19 23:00 96/54 02/26/19 22:45 111 19 112/62 (79) 02/26/19 22:30 112/62 02/26/19 22:30 104 17 102/61 (75) 02/26/19 22:15 111 17 95/64 (74) 02/26/19 22:00 107 17 94/59 (71) 02/26/19 22:00 95/64 02/26/19 21:45 106 15 100/59 (73) 02/26/19 21:41 102 16 40 02/26/19 21:30 104 16 87/54 (65) 02/26/19 21:15 107 16 92/55 (67) 02/26/19 21:00 97.8 111 19 106/63 (77) 100 02/26/19 21:00 92/55 02/26/19 20:45 108 18 103/66 (78) 02/26/19 20:30 105 16 98/61 (73) 02/26/19 20:15 106 19 97/59 (72) 02/26/19 20:00 35 02/26/19 20:00 Endotracheal Tube 02/26/19 20:00 97/59 02/26/19 20:00 102 12 100/59 (73) 02/26/19 20:00 110 02/26/19 19:30 99 16 95/66 (76) 02/26/19 19:01 103 16 40 02/26/19 19:00 103 14 95/65 (75) 02/26/19 19:00 99/70 02/26/19 18:30 98 4 100/58 (72) 02/26/19 18:00 98/68 02/26/19 18:00 112 19 113/65 (81) 97 02/26/19 17:30 95/66 02/26/19 17:30 105 18 121/61 (81) 02/26/19 17:21 102 16 40 02/26/19 17:00 100 16 94/64 (74) 02/26/19 16:30 103 17 98/59 (72) 02/26/19 16:00 Endotracheal Tube 02/26/19 16:00 102 02/26/19 16:00 35 02/26/19 16:00 97.6 105 19 98/63 (75) 02/26/19 15:30 110 16 109/65 (80) 02/26/19 15:15 113 18 40 02/26/19 15:00 97 16 96/59 (71) 02/26/19 14:30 105 17 93/60 (71) 92 02/26/19 14:00 100 16 100/60 (73) 100 02/26/19 13:30 106 16 98/61 (73) 92 02/26/19 13:02 98 16 40 02/26/19 13:00 101 16 95/57 (70) 02/26/19 12:30 97 16 103/61 (75) 02/26/19 12:00 Endotracheal Tube 02/26/19 12:00 35 02/26/19 12:00 99 02/26/19 12:00 97.7 101 18 96/58 (71) 02/26/19 11:30 97 18 111/62 (78) 02/26/19 11:28 101 16 40 02/26/19 11:10 100 02/26/19 11:00 101 17 94/62 (73) 02/26/19 10:30 96 17 92/53 (66) 02/26/19 10:00 103 18 90/62 (71) 02/26/19 09:30 105 20 109/69 (82) 02/26/19 09:27 96 23 40 02/26/19 09:00 100 19 97/62 (74) 02/26/19 08:30 97 17 93/59 (70) 94 Labs: Labs Test 02/24/19 09:20 02/24/19 15:34 02/24/19 18:40 02/24/19 20:43 White Blood Count 14.3 K/UL (4.8-10.8) Red Blood Count 2.78 M/UL (4.20-5.40) Hemoglobin 9.0 G/DL (12.0-16.0) Hematocrit 28.4 % (37.0-47.0) Mean Corpuscular Volume 102 FL (80-99) Mean Corpuscular Hemoglobin 32.4 PG (27.0-31.0) Mean Corpuscular Hemoglobin Concent 31.7 G/DL (32.0-36.0) Red Cell Distribution Width 19.5 % (11.6-14.8) Platelet Count 51 K/UL (150-450) Mean Platelet Volume 7.5 FL (6.5-10.1) Neutrophils (%) (Auto) % (45.0-75.0) Lymphocytes (%) (Auto) % (20.0-45.0) Monocytes (%) (Auto) % (1.0-10.0) Eosinophils (%) (Auto) % (0.0-3.0) Basophils (%) (Auto) % (0.0-2.0) Differential Total Cells Counted 100 Neutrophils % (Manual) 96 % (45-75) Lymphocytes % (Manual) 1 % (20-45) Monocytes % (Manual) 3 % (1-10) Eosinophils % (Manual) 0 % (0-3) Basophils % (Manual) 0 % (0-2) Band Neutrophils 0 % (0-8) Platelet Estimate Decreased Platelet Morphology Normal Polychromasia 1+ Hypochromasia 1+ Anisocytosis 2+ Macrocytosis 2+ Ovalocytes Occasional Sodium Level 132 MMOL/L (136-145) Potassium Level 2.8 MMOL/L (3.5-5.1) Chloride Level 103 MMOL/L (98-107) Carbon Dioxide Level 24 MMOL/L (21-32) Anion Gap 7 mmol/L (5-15) Blood Urea Nitrogen 43 mg/dL (7-18) Creatinine 2.0 MG/DL (0.55-1.30) Estimat Glomerular Filtration Rate mL/min (>60) Glucose Level 218 MG/DL (74-106) Lactic Acid Level 2.10 mmol/L (0.66-2.22) 2.10 mmol/L (0.4-2.0) 2.00 mmol/L (0.4-2.0) Calcium Level 7.3 MG/DL (8.5-10.1) Total Bilirubin 2.7 MG/DL (0.2-1.0) Direct Bilirubin 1.7 MG/DL (0.0-0.3) Aspartate Amino Transf (AST/SGOT) 59 U/L (15-37) Alanine Aminotransferase (ALT/SGPT) 34 U/L (12-78) Alkaline Phosphatase 74 U/L (46-116) Total Protein 5.0 G/DL (6.4-8.2) Albumin 1.8 G/DL (3.4-5.0) Globulin 3.2 g/dL Albumin/Globulin Ratio 0.6 (1.0-2.7) Arterial Blood pH 7.484 (7.350-7.450) Arterial Blood Partial Pressure CO2 26.7 mmHg (35.0-45.0) Arterial Blood Partial Pressure O2 105.8 mmHg (75.0-100.0) Arterial Blood HCO3 19.6 mmol/L (22.0-26.0) Arterial Blood Oxygen Saturation 97.5 % (95-100) Arterial Blood Base Excess -2.9 (-2-2) Melchor Test Positive Test 02/25/19 04:20 02/25/19 10:05 02/26/19 04:45 02/26/19 11:45 White Blood Count 17.1 K/UL (4.8-10.8) 15.7 K/UL (4.8-10.8) 14.6 K/UL (4.8-10.8) Red Blood Count 2.63 M/UL (4.20-5.40) 2.58 M/UL (4.20-5.40) 2.66 M/UL (4.20-5.40) Hemoglobin 8.7 G/DL (12.0-16.0) 8.6 G/DL (12.0-16.0) 8.7 G/DL (12.0-16.0) Hematocrit 27.2 % (37.0-47.0) 25.7 % (37.0-47.0) 27.4 % (37.0-47.0) Mean Corpuscular Volume 103 FL (80-99) 100 FL (80-99) 103 FL (80-99) Mean Corpuscular Hemoglobin 33.0 PG (27.0-31.0) 33.2 PG (27.0-31.0) 32.7 PG (27.0-31.0) Mean Corpuscular Hemoglobin Concent 32.0 G/DL (32.0-36.0) 33.3 G/DL (32.0-36.0) 31.7 G/DL (32.0-36.0) Red Cell Distribution Width 19.0 % (11.6-14.8) 17.1 % (11.6-14.8) 17.5 % (11.6-14.8) Platelet Count 54 K/UL (150-450) 28 K/UL (150-450) 24 K/UL (150-450) Mean Platelet Volume 7.7 FL (6.5-10.1) 5.7 FL (6.5-10.1) 6.0 FL (6.5-10.1) Neutrophils (%) (Auto) % (45.0-75.0) % (45.0-75.0) % (45.0-75.0) Lymphocytes (%) (Auto) % (20.0-45.0) % (20.0-45.0) % (20.0-45.0) Monocytes (%) (Auto) % (1.0-10.0) % (1.0-10.0) % (1.0-10.0) Eosinophils (%) (Auto) % (0.0-3.0) % (0.0-3.0) % (0.0-3.0) Basophils (%) (Auto) % (0.0-2.0) % (0.0-2.0) % (0.0-2.0) Differential Total Cells Counted 100 100 100 Neutrophils % (Manual) 94 % (45-75) 95 % (45-75) 95 % (45-75) Lymphocytes % (Manual) 2 % (20-45) 2 % (20-45) 2 % (20-45) Monocytes % (Manual) 4 % (1-10) 3 % (1-10) 3 % (1-10) Eosinophils % (Manual) 0 % (0-3) 0 % (0-3) 0 % (0-3) Basophils % (Manual) 0 % (0-2) 0 % (0-2) 0 % (0-2) Band Neutrophils 0 % (0-8) 0 % (0-8) 0 % (0-8) Platelet Estimate Decreased Decreased Decreased Platelet Morphology Normal Normal Normal Polychromasia 1+ 1+ 1+ Hypochromasia 1+ 1+ 1+ Anisocytosis 2+ 1+ 1+ Macrocytosis 2+ 1+ 2+ Sodium Level 142 MMOL/L (136-145) 144 MMOL/L (136-145) Potassium Level 2.7 MMOL/L (3.5-5.1) 3.2 MMOL/L (3.5-5.1) Chloride Level 108 MMOL/L (98-107) 112 MMOL/L (98-107) Carbon Dioxide Level 24 MMOL/L (21-32) 23 MMOL/L (21-32) Anion Gap 9 mmol/L (5-15) 9 mmol/L (5-15) Blood Urea Nitrogen 42 mg/dL (7-18) 37 mg/dL (7-18) Creatinine 1.9 MG/DL (0.55-1.30) 1.6 MG/DL (0.55-1.30) Estimat Glomerular Filtration Rate mL/min (>60) mL/min (>60) Glucose Level 258 MG/DL (74-106) 217 MG/DL (74-106) Lactic Acid Level 2.40 mmol/L (0.4-2.0) 2.00 mmol/L (0.4-2.0) Calcium Level 7.7 MG/DL (8.5-10.1) 7.2 MG/DL (8.5-10.1) Phosphorus Level 2.1 MG/DL (2.5-4.9) 2.4 MG/DL (2.5-4.9) Magnesium Level 1.6 MG/DL (1.8-2.4) 1.6 MG/DL (1.8-2.4) Total Bilirubin 2.1 MG/DL (0.2-1.0) 1.8 MG/DL (0.2-1.0) Direct Bilirubin 1.4 MG/DL (0.0-0.3) 1.2 MG/DL (0.0-0.3) Aspartate Amino Transf (AST/SGOT) 59 U/L (15-37) 60 U/L (15-37) Alanine Aminotransferase (ALT/SGPT) 41 U/L (12-78) 39 U/L (12-78) Alkaline Phosphatase 107 U/L (46-116) 119 U/L (46-116) Troponin I 0.164 ng/mL (0.000-0.056) C-Reactive Protein, Quantitative 3.7 mg/dL (0.00-0.90) 3.3 mg/dL (0.00-0.90) Pro-B-Type Natriuretic Peptide > 82493 pg/mL (0-125) 74916 pg/mL (0-125) Total Protein 5.2 G/DL (6.4-8.2) 4.9 G/DL (6.4-8.2) Albumin 1.9 G/DL (3.4-5.0) 1.7 G/DL (3.4-5.0) Globulin 3.3 g/dL 3.2 g/dL Albumin/Globulin Ratio 0.6 (1.0-2.7) 0.5 (1.0-2.7) Digoxin Level 0.4 NG/ML (0.9-2.0) 0.9 NG/ML (0.9-2.0) Prothrombin Time 16.2 SEC (9.30-11.50) Prothromb Time International Ratio 1.6 (0.9-1.1) Activated Partial Thromboplast Time 41 SEC (23-33) Uric Acid 7.0 MG/DL (2.6-7.2) Objective: PHYSICAL EXAMINATION: GENERAL: The patient is a chronically ill-appearing female, on VENT and not weaning yet NECK: Supple. There is a central line in the right subclavian area. HEART: iRRR.without MRG LUNGS: reduced breath sounds with some rhonchi; no wheeze ABDOMEN: Soft, nontender, nondistended. no HSM EXTREMITIES: No clubbing, cyanosis, or edema. NEURO: response to pain skin noted Accucheck: 72 Jan Anderson MD Feb 27, 2019 08:31
[2019-02-27] MEDS: Fluconazole 100mg tab ORAL SCH (08:45)
[2019-02-27] MEDS: Pantoprazole Inj IVP SCH ×2 (08:45→20:54)
--- NOTE | 2019-02-27 09:30 | NUR ---
NURSE NOTES: Oral Care provided and patient repositioned, Dr. Heller assessed patient foot wounds and ordered to continue per orders,
--- NOTE | 2019-02-27 09:30 | NUR ---
NURSE NOTES: Patient failed weaning after seconds of attempting weaning, will attempt once again.
--- NOTE | 2019-02-27 09:38 | NUR ---
RESPIRATORY NOTES: Attempted to wean patient however as soon as I placed her on Spontaneous breathing her RR went up >40 and her tidal volumes were shallow <200mL. Placed back onto ACVC. ANDREINA zapata.
--- NOTE | 2019-02-27 09:43 | General Progress Note ---
Assessment/Plan Problem List: (1) Septic shock ICD Codes: A41.9 - Sepsis, unspecified organism; R65.21 - Severe sepsis with septic shock SNOMED: 45172136 (2) UTI (urinary tract infection) ICD Codes: N39.0 - Urinary tract infection, site not specified SNOMED: 47259652 Qualifiers: Qualified Codes: N39.0 - Urinary tract infection, site not specified (3) Renal failure ICD Codes: N19 - Unspecified kidney failure SNOMED: 61662887 Qualifiers: Qualified Codes: N17.9 - Acute kidney failure, unspecified (4) Abdominal pain ICD Codes: R10.9 - Unspecified abdominal pain SNOMED: 99076257 Qualifiers: Qualified Codes: R10.32 - Left lower quadrant pain (5) Severe sepsis ICD Codes: A41.9 - Sepsis, unspecified organism; R65.20 - Severe sepsis without septic shock SNOMED: 90169449 (6) Dehydration ICD Codes: E86.0 - Dehydration SNOMED: 35564982 (7) Atrial fibrillation with rapid ventricular response ICD Codes: I48.91 - Unspecified atrial fibrillation SNOMED: 423499612276524 Status: stable, not improved, deteriorating Assessment/Plan: cont supportive care pressors- wean as able. still on low dose levo wean vent resp rx and suctioning as needed follow up labs- replace lytes as needed iv abx per id tube feeds Subjective ROS Limited/Unobtainable: Yes Constitutional: Reports: malaise, weakness HEENT: Reports: no symptoms Cardiovascular: Reports: no symptoms Respiratory: Reports: cough, shortness of breath Gastrointestinal/Abdominal: Reports: no symptoms Genitourinary: Reports: no symptoms Neurologic/Psychiatric: Reports: pre-existing deficit Endocrine: Reports: no symptoms Hematologic/Lymphatic: Reports: no symptoms Allergies: Coded Allergies: No Known Allergies (Unverified , 02/19/19) All Systems: reviewed and negative except above Subjective remains intubated on pressors- 3mcg. doing better. more alert. much more alert. urine output better. cr trending down. labs pending for today Objective Last 24 Hour Vital Signs Date Time Temp Pulse Resp B/P (MAP) Pulse Ox O2 Delivery O2 Flow Rate FiO2 02/27/19 09:20 111 18 35 02/27/19 09:00 119 16 103/59 (74) 100 02/27/19 08:30 110 18 91/53 (66) 100 02/27/19 08:00 98.4 114 20 94/59 (71) 100 02/27/19 07:43 35 02/27/19 07:30 100 25 91/61 (71) 02/27/19 07:09 114 25 90/57 (68) 02/27/19 07:03 140 16 35 02/27/19 07:00 91/61 02/27/19 07:00 108 18 86/49 (61) 100 02/27/19 06:30 114 18 94/59 (71) 02/27/19 06:00 111 23 97/53 (68) 100 02/27/19 06:00 86/57 02/27/19 05:30 106 20 91/55 (67) 02/27/19 05:08 103 17 40 02/27/19 05:00 91/55 02/27/19 05:00 112 24 93/49 (64) 99 02/27/19 04:30 104 16 89/56 (67) 99 02/27/19 04:00 35 02/27/19 04:00 Endotracheal Tube 02/27/19 04:00 108 22 99/43 (61) 98 02/27/19 04:00 102 02/27/19 04:00 89/56 02/27/19 03:30 109 24 96/57 (70) 98 02/27/19 03:00 96/57 02/27/19 03:00 108 18 106/56 (73) 98 02/27/19 02:51 97 16 40 02/27/19 02:30 107 16 109/76 (87) 99 02/27/19 02:00 101 16 107/58 (74) 02/27/19 02:00 83/60 02/27/19 01:30 104 16 83/51 (62) 02/27/19 01:28 104 16 103/53 (70) 100 02/27/19 01:22 113 18 40 02/27/19 01:00 93/63 02/27/19 01:00 104 16 83/58 (66) 99 02/27/19 00:30 107 18 90/60 (70) 02/27/19 00:00 107 19 98/52 (67) 100 02/27/19 00:00 90/58 02/27/19 00:00 Endotracheal Tube 02/27/19 00:00 35 02/27/19 00:00 104 02/26/19 23:45 105 16 96/54 (68) 02/26/19 23:30 109 21 103/59 (74) 02/26/19 23:21 111 17 40 02/26/19 23:15 103 16 87/56 (66) 02/26/19 23:00 100 16 98/55 (69) 02/26/19 23:00 96/54 02/26/19 22:45 111 19 112/62 (79) 02/26/19 22:30 112/62 02/26/19 22:30 104 17 102/61 (75) 02/26/19 22:15 111 17 95/64 (74) 02/26/19 22:00 107 17 94/59 (71) 02/26/19 22:00 95/64 02/26/19 21:45 106 15 100/59 (73) 02/26/19 21:41 102 16 40 02/26/19 21:30 104 16 87/54 (65) 02/26/19 21:15 107 16 92/55 (67) 02/26/19 21:00 97.8 111 19 106/63 (77) 100 02/26/19 21:00 92/55 02/26/19 20:45 108 18 103/66 (78) 02/26/19 20:30 105 16 98/61 (73) 02/26/19 20:15 106 19 97/59 (72) 02/26/19 20:00 35 02/26/19 20:00 Endotracheal Tube 02/26/19 20:00 97/59 02/26/19 20:00 102 12 100/59 (73) 02/26/19 20:00 110 02/26/19 19:30 99 16 95/66 (76) 02/26/19 19:01 103 16 40 02/26/19 19:00 103 14 95/65 (75) 02/26/19 19:00 99/70 02/26/19 18:30 98 4 100/58 (72) 02/26/19 18:00 98/68 02/26/19 18:00 112 19 113/65 (81) 97 02/26/19 17:30 95/66 02/26/19 17:30 105 18 121/61 (81) 02/26/19 17:21 102 16 40 02/26/19 17:00 100 16 94/64 (74) 02/26/19 16:30 103 17 98/59 (72) 02/26/19 16:00 Endotracheal Tube 02/26/19 16:00 102 02/26/19 16:00 35 02/26/19 16:00 97.6 105 19 98/63 (75) 02/26/19 15:30 110 16 109/65 (80) 02/26/19 15:15 113 18 40 02/26/19 15:00 97 16 96/59 (71) 02/26/19 14:30 105 17 93/60 (71) 92 02/26/19 14:00 100 16 100/60 (73) 100 02/26/19 13:30 106 16 98/61 (73) 92 02/26/19 13:02 98 16 40 02/26/19 13:00 101 16 95/57 (70) 02/26/19 12:30 97 16 103/61 (75) 02/26/19 12:00 Endotracheal Tube 02/26/19 12:00 35 02/26/19 12:00 99 02/26/19 12:00 97.7 101 18 96/58 (71) 02/26/19 11:30 97 18 111/62 (78) 02/26/19 11:28 101 16 40 02/26/19 11:10 100 02/26/19 11:00 101 17 94/62 (73) 02/26/19 10:30 96 17 92/53 (66) 02/26/19 10:00 103 18 90/62 (71) Intake and Output 02/26/19 02/27/19 19:00 07:00 Intake Total 1720.0 ml 743.27 ml Output Total 480 ml 430 ml Balance 1240.0 ml 313.27 ml Free Water 180 ml 60 ml IV Total 940.0 ml 83.27 ml Tube Feeding 600 ml 600 ml Output Urine Total 430 ml 380 ml Stool Total 50 ml 50 ml Laboratory Tests 02/26/19 11:45: White Blood Count 14.6H, Red Blood Count 2.66L, Hemoglobin 8.7L, Hematocrit 27.4L, Mean Corpuscular Volume 103H, Mean Corpuscular Hemoglobin 32.7H, Mean Corpuscular Hemoglobin Concent 31.7L, Red Cell Distribution Width 17.5H, Platelet Count 24L, Mean Platelet Volume 6.0L, Neutrophils (%) (Auto) , Lymphocytes (%) (Auto) , Monocytes (%) (Auto) , Eosinophils (%) (Auto) , Basophils (%) (Auto) , Differential Total Cells Counted 100, Neutrophils % ( Manual) 95H, Lymphocytes % (Manual) 2L, Monocytes % (Manual) 3, Eosinophils % ( Manual) 0, Basophils % (Manual) 0, Band Neutrophils 0, Platelet Estimate DecreasedL, Platelet Morphology Normal, Polychromasia 1+, Hypochromasia 1+, Anisocytosis 1+, Macrocytosis 2+ Height (Feet): 5 Height (Inches): 6.00 Weight (Pounds): 156 Objective General Appearance: WD/WN, confused. more responsive, orally intubated Neck: supple Cardiovascular: irregularly irregular Respiratory/Chest: chest wall non-tender, lungs clear, normal breath sounds, no respiratory distress Abdomen: normal bowel sounds, non tender, soft, no organomegaly Edema: no edema noted Arm (L), no edema noted Arm (R), no edema noted Leg (L), no edema noted Leg (R), no edema noted Pedal (L), no edema noted Pedal (R), no edema noted Generalized Neurologic: disoriented Mitchel Reis MD Feb 27, 2019 09:43
--- NOTE | 2019-02-27 10:16 | Surgery Progress Note ---
Surgery Progress Note Subjective Additional Comments still on levo 6mcg did not tolerate weaning labs noted, leukocytosis, anemia exam stable Objective Last 24 Hour Vital Signs Date Time Temp Pulse Resp B/P (MAP) Pulse Ox O2 Delivery O2 Flow Rate FiO2 02/27/19 09:20 111 18 35 02/27/19 09:00 119 16 103/59 (74) 100 02/27/19 08:30 110 18 91/53 (66) 100 02/27/19 08:00 98.4 114 20 94/59 (71) 100 02/27/19 07:43 35 02/27/19 07:30 100 25 91/61 (71) 02/27/19 07:09 114 25 90/57 (68) 02/27/19 07:03 140 16 35 02/27/19 07:00 91/61 02/27/19 07:00 108 18 86/49 (61) 100 02/27/19 06:30 114 18 94/59 (71) 02/27/19 06:00 111 23 97/53 (68) 100 02/27/19 06:00 86/57 02/27/19 05:30 106 20 91/55 (67) 02/27/19 05:08 103 17 40 02/27/19 05:00 91/55 02/27/19 05:00 112 24 93/49 (64) 99 02/27/19 04:30 104 16 89/56 (67) 99 02/27/19 04:00 35 02/27/19 04:00 Endotracheal Tube 02/27/19 04:00 108 22 99/43 (61) 98 02/27/19 04:00 102 02/27/19 04:00 89/56 02/27/19 03:30 109 24 96/57 (70) 98 02/27/19 03:00 96/57 02/27/19 03:00 108 18 106/56 (73) 98 02/27/19 02:51 97 16 40 02/27/19 02:30 107 16 109/76 (87) 99 02/27/19 02:00 101 16 107/58 (74) 02/27/19 02:00 83/60 02/27/19 01:30 104 16 83/51 (62) 02/27/19 01:28 104 16 103/53 (70) 100 02/27/19 01:22 113 18 40 02/27/19 01:00 93/63 02/27/19 01:00 104 16 83/58 (66) 99 02/27/19 00:30 107 18 90/60 (70) 02/27/19 00:00 107 19 98/52 (67) 100 02/27/19 00:00 90/58 02/27/19 00:00 Endotracheal Tube 02/27/19 00:00 35 02/27/19 00:00 104 02/26/19 23:45 105 16 96/54 (68) 02/26/19 23:30 109 21 103/59 (74) 02/26/19 23:21 111 17 40 02/26/19 23:15 103 16 87/56 (66) 02/26/19 23:00 100 16 98/55 (69) 02/26/19 23:00 96/54 02/26/19 22:45 111 19 112/62 (79) 02/26/19 22:30 112/62 02/26/19 22:30 104 17 102/61 (75) 02/26/19 22:15 111 17 95/64 (74) 02/26/19 22:00 107 17 94/59 (71) 02/26/19 22:00 95/64 02/26/19 21:45 106 15 100/59 (73) 02/26/19 21:41 102 16 40 02/26/19 21:30 104 16 87/54 (65) 02/26/19 21:15 107 16 92/55 (67) 02/26/19 21:00 97.8 111 19 106/63 (77) 100 02/26/19 21:00 92/55 02/26/19 20:45 108 18 103/66 (78) 02/26/19 20:30 105 16 98/61 (73) 02/26/19 20:15 106 19 97/59 (72) 02/26/19 20:00 35 02/26/19 20:00 Endotracheal Tube 02/26/19 20:00 97/59 02/26/19 20:00 102 12 100/59 (73) 02/26/19 20:00 110 02/26/19 19:30 99 16 95/66 (76) 02/26/19 19:01 103 16 40 02/26/19 19:00 103 14 95/65 (75) 02/26/19 19:00 99/70 02/26/19 18:30 98 4 100/58 (72) 02/26/19 18:00 98/68 02/26/19 18:00 112 19 113/65 (81) 97 02/26/19 17:30 95/66 02/26/19 17:30 105 18 121/61 (81) 02/26/19 17:21 102 16 40 02/26/19 17:00 100 16 94/64 (74) 02/26/19 16:30 103 17 98/59 (72) 02/26/19 16:00 Endotracheal Tube 02/26/19 16:00 102 02/26/19 16:00 35 02/26/19 16:00 97.6 105 19 98/63 (75) 02/26/19 15:30 110 16 109/65 (80) 02/26/19 15:15 113 18 40 02/26/19 15:00 97 16 96/59 (71) 02/26/19 14:30 105 17 93/60 (71) 92 02/26/19 14:00 100 16 100/60 (73) 100 02/26/19 13:30 106 16 98/61 (73) 92 02/26/19 13:02 98 16 40 02/26/19 13:00 101 16 95/57 (70) 02/26/19 12:30 97 16 103/61 (75) 02/26/19 12:00 Endotracheal Tube 02/26/19 12:00 35 02/26/19 12:00 99 02/26/19 12:00 97.7 101 18 96/58 (71) 02/26/19 11:30 97 18 111/62 (78) 02/26/19 11:28 101 16 40 02/26/19 11:10 100 02/26/19 11:00 101 17 94/62 (73) 02/26/19 10:30 96 17 92/53 (66) I&O Intake and Output 02/26/19 02/27/19 19:00 07:00 Intake Total 1720.0 ml 743.27 ml Output Total 480 ml 430 ml Balance 1240.0 ml 313.27 ml Free Water 180 ml 60 ml IV Total 940.0 ml 83.27 ml Tube Feeding 600 ml 600 ml Output Urine Total 430 ml 380 ml Stool Total 50 ml 50 ml Dressing: saturated Wound: clean Cardiovascular: RSR Respiratory: clear, decreased breath sounds Abdomen: soft, other, non-distended, decreased bowel sounds Extremities: other Laboratory Tests Test 02/26/19 11:45 White Blood Count 14.6 K/UL (4.8-10.8) H Red Blood Count 2.66 M/UL (4.20-5.40) L Hemoglobin 8.7 G/DL (12.0-16.0) L Hematocrit 27.4 % (37.0-47.0) L Mean Corpuscular Volume 103 FL (80-99) H Mean Corpuscular Hemoglobin 32.7 PG (27.0-31.0) H Mean Corpuscular Hemoglobin Concent 31.7 G/DL (32.0-36.0) L Red Cell Distribution Width 17.5 % (11.6-14.8) H Platelet Count 24 K/UL (150-450) L Mean Platelet Volume 6.0 FL (6.5-10.1) L Neutrophils (%) (Auto) % (45.0-75.0) Lymphocytes (%) (Auto) % (20.0-45.0) Monocytes (%) (Auto) % (1.0-10.0) Eosinophils (%) (Auto) % (0.0-3.0) Basophils (%) (Auto) % (0.0-2.0) Differential Total Cells Counted 100 Neutrophils % (Manual) 95 % (45-75) H Lymphocytes % (Manual) 2 % (20-45) L Monocytes % (Manual) 3 % (1-10) Eosinophils % (Manual) 0 % (0-3) Basophils % (Manual) 0 % (0-2) Band Neutrophils 0 % (0-8) Platelet Estimate Decreased L Platelet Morphology Normal Polychromasia 1+ Hypochromasia 1+ Anisocytosis 1+ Macrocytosis 2+ Plan Problems: (1) Septic shock Assessment & Plan: 78-year-old female in septic shock in the intensive care unit on pressors. Leukocytosis, anemia, abnormal labs. Tachycardic. On respiratory support. On examination patient identified to have slowed capillary refill in the distal extremities. Patient furthermore identified to have a weeping wound in the right great toe. Patient is currently very ill and septic and requiring pressors. Unfortunately given her medical condition comorbidities and history there is potential for distal vasoconstriction and potentially even necrosis of the distal aspects but further life-saving measures pressors currently required and necessary and indicated. wound re-evaluated. necrotic epidermal tissue sloth off but underlying tissues with backbleeding. motor noted spont in foot and toes We will continue to monitor extremities and evaluate them. Will wean off pressors as possible. Lactic acidosis improving. Continue IV antibiotics Wean pressors Appreciate ICU care and management We will follow with recommendations (2) Abdominal pain Assessment & Plan: Chronic liver disease/cirrhosis with signs of portal hypertension including moderate ascites and hepatofugal flow in the portal vein. Gallbladder wall edema nonspecific Bilateral pleural effusions. Medical renal disease Findings: There is extensive artifact from the patient's arms limiting evaluation. Oral contrast was given. Gastrostomy tube is noted in good position. There are small bilateral pleural effusions present with adjacent ill-defined parenchymal density either atelectasis or pneumonia. Correlate clinically. Small pericardial effusion is present and there is generalized cardiomegaly present. Hiatal hernia noted. Aorta and coronary artery calcification present. Mild ascites is demonstrated. No compelling evidence for bowel obstruction. There is extensive diverticulosis involving the colon without obvious diverticulitis. Generalized anasarca noted. The appendix is not seen. The kidneys show no obvious hydronephrosis. The right kidney appears atrophic. There is a suggestion of cysts within the right kidney but this is grossly limited in terms of visualization. The gallbladder is demonstrated. The rectum appears low in location suggestive of prolapse and with a moderate degree of fecal retention. IMPRESSION: Limited evaluation due to artifact. Mild to moderate ascites Trace bilateral pleural effusions. Basilar atelectasis and/or infiltrate. Trace pericardial effusion Generalized cardiomegaly. Atherosclerotic vascular disease Extensive diverticulosis of the colon. No definite diverticulitis. Anasarca Gross catheter Query rectal prolapse (3) Severe sepsis Tristan Heller Feb 27, 2019 10:16
--- NOTE | 2019-02-27 10:26 | Infectious Diseases Prog Note ---
Assessment/Plan Assessment/Plan antibiotics ; levoquin, fluconazole A 1. pneumonia s/p rx 2. fungal UTI s/p rx 3. renal failure 4. septic shock 5. CHF 6. dementia 7. thrombocytopenia P 1. continue po levoquin 2. dc fluconazole 3. will follow up cultures Subjective ROS Limited/Unobtainable: Yes Allergies: Coded Allergies: No Known Allergies (Unverified , 02/19/19) Objective Vital Signs Last 24 Hour Vital Signs Date Time Temp Pulse Resp B/P (MAP) Pulse Ox O2 Delivery O2 Flow Rate FiO2 02/27/19 09:20 111 18 35 02/27/19 09:00 119 16 103/59 (74) 100 02/27/19 08:30 110 18 91/53 (66) 100 02/27/19 08:00 98.4 114 20 94/59 (71) 100 02/27/19 07:43 35 02/27/19 07:30 100 25 91/61 (71) 02/27/19 07:09 114 25 90/57 (68) 02/27/19 07:03 140 16 35 02/27/19 07:00 91/61 02/27/19 07:00 108 18 86/49 (61) 100 02/27/19 06:30 114 18 94/59 (71) 02/27/19 06:00 111 23 97/53 (68) 100 02/27/19 06:00 86/57 02/27/19 05:30 106 20 91/55 (67) 02/27/19 05:08 103 17 40 02/27/19 05:00 91/55 02/27/19 05:00 112 24 93/49 (64) 99 02/27/19 04:30 104 16 89/56 (67) 99 02/27/19 04:00 35 02/27/19 04:00 Endotracheal Tube 02/27/19 04:00 108 22 99/43 (61) 98 02/27/19 04:00 102 02/27/19 04:00 89/56 02/27/19 03:30 109 24 96/57 (70) 98 02/27/19 03:00 96/57 02/27/19 03:00 108 18 106/56 (73) 98 02/27/19 02:51 97 16 40 02/27/19 02:30 107 16 109/76 (87) 99 11/19/19 02:00 101 16 107/58 (74) 02/27/19 02:00 83/60 02/27/19 01:30 104 16 83/51 (62) 02/27/19 01:28 104 16 103/53 (70) 100 02/27/19 01:22 113 18 40 02/27/19 01:00 93/63 02/27/19 01:00 104 16 83/58 (66) 99 02/27/19 00:30 107 18 90/60 (70) 02/27/19 00:00 107 19 98/52 (67) 100 02/27/19 00:00 90/58 02/27/19 00:00 Endotracheal Tube 02/27/19 00:00 35 02/27/19 00:00 104 02/26/19 23:45 105 16 96/54 (68) 02/26/19 23:30 109 21 103/59 (74) 02/26/19 23:21 111 17 40 02/26/19 23:15 103 16 87/56 (66) 02/26/19 23:00 100 16 98/55 (69) 02/26/19 23:00 96/54 02/26/19 22:45 111 19 112/62 (79) 02/26/19 22:30 112/62 02/26/19 22:30 104 17 102/61 (75) 02/26/19 22:15 111 17 95/64 (74) 02/26/19 22:00 107 17 94/59 (71) 02/26/19 22:00 95/64 02/26/19 21:45 106 15 100/59 (73) 02/26/19 21:41 102 16 40 02/26/19 21:30 104 16 87/54 (65) 02/26/19 21:15 107 16 92/55 (67) 02/26/19 21:00 97.8 111 19 106/63 (77) 100 02/26/19 21:00 92/55 02/26/19 20:45 108 18 103/66 (78) 02/26/19 20:30 105 16 98/61 (73) 02/26/19 20:15 106 19 97/59 (72) 02/26/19 20:00 35 02/26/19 20:00 Endotracheal Tube 11/18/19 20:00 97/59 02/26/19 20:00 102 12 100/59 (73) 02/26/19 20:00 110 02/26/19 19:30 99 16 95/66 (76) 02/26/19 19:01 103 16 40 02/26/19 19:00 103 14 95/65 (75) 02/26/19 19:00 99/70 02/26/19 18:30 98 4 100/58 (72) 02/26/19 18:00 98/68 02/26/19 18:00 112 19 113/65 (81) 97 02/26/19 17:30 95/66 02/26/19 17:30 105 18 121/61 (81) 02/26/19 17:21 102 16 40 02/26/19 17:00 100 16 94/64 (74) 02/26/19 16:30 103 17 98/59 (72) 02/26/19 16:00 Endotracheal Tube 02/26/19 16:00 102 02/26/19 16:00 35 02/26/19 16:00 97.6 105 19 98/63 (75) 02/26/19 15:30 110 16 109/65 (80) 02/26/19 15:15 113 18 40 02/26/19 15:00 97 16 96/59 (71) 02/26/19 14:30 105 17 93/60 (71) 92 02/26/19 14:00 100 16 100/60 (73) 100 02/26/19 13:30 106 16 98/61 (73) 92 02/26/19 13:02 98 16 40 02/26/19 13:00 101 16 95/57 (70) 02/26/19 12:30 97 16 103/61 (75) 02/26/19 12:00 Endotracheal Tube 02/26/19 12:00 35 02/26/19 12:00 99 02/26/19 12:00 97.7 101 18 96/58 (71) 02/26/19 11:30 97 18 111/62 (78) 02/26/19 11:28 101 16 40 02/26/19 11:10 100 02/26/19 11:00 101 17 94/62 (73) 11/18/19 10:30 96 17 92/53 (66) Height (Feet): 5 Height (Inches): 6.00 Weight (Pounds): 156 HEENT: other - intubated Respiratory/Chest: lungs clear Cardiovascular: normal rate, regular rhythm, no gallop/murmur Abdomen: soft, non tender, other Extremities: no edema, other - right IJ catheter, left arm PICC Laboratory Tests Test 02/26/19 11:45 White Blood Count 14.6 K/UL (4.8-10.8) H Red Blood Count 2.66 M/UL (4.20-5.40) L Hemoglobin 8.7 G/DL (12.0-16.0) L Hematocrit 27.4 % (37.0-47.0) L Mean Corpuscular Volume 103 FL (80-99) H Mean Corpuscular Hemoglobin 32.7 PG (27.0-31.0) H Mean Corpuscular Hemoglobin Concent 31.7 G/DL (32.0-36.0) L Red Cell Distribution Width 17.5 % (11.6-14.8) H Platelet Count 24 K/UL (150-450) L Mean Platelet Volume 6.0 FL (6.5-10.1) L Neutrophils (%) (Auto) % (45.0-75.0) Lymphocytes (%) (Auto) % (20.0-45.0) Monocytes (%) (Auto) % (1.0-10.0) Eosinophils (%) (Auto) % (0.0-3.0) Basophils (%) (Auto) % (0.0-2.0) Differential Total Cells Counted 100 Neutrophils % (Manual) 95 % (45-75) H Lymphocytes % (Manual) 2 % (20-45) L Monocytes % (Manual) 3 % (1-10) Eosinophils % (Manual) 0 % (0-3) Basophils % (Manual) 0 % (0-2) Band Neutrophils 0 % (0-8) Platelet Estimate Decreased L Platelet Morphology Normal Polychromasia 1+ Hypochromasia 1+ Anisocytosis 1+ Macrocytosis 2+ Current Medications Medications (Trade) Dose Ordered Sig/Pam Route PRN Reason Start Time Stop Time Status Last Admin Dose Admin Acetaminophen (Tylenol) 650 mg Q4H PRN ORAL Mild Pain/Temp > 100.5 02/19/19 17:15 03/21/19 17:14 Chlorhexidine Gluconate (Dayna-Hex 2%) 1 applic DAILY@2000 TOPIC 02/20/19 20:00 03/22/19 19:59 02/26/19 21:13 Fluconazole (Diflucan) 100 mg DAILY ORAL 02/21/19 10:39 02/28/19 10:38 02/27/19 08:45 Levofloxacin (Levaquin) 250 mg DAILY ORAL 02/27/19 09:00 03/06/19 08:59 02/27/19 08:45 Norepinephrine Bitartrate 16 mg/ Dextrose 500 ml @ 0 mls/hr Q24H IV 02/26/19 17:30 03/28/19 17:29 02/26/19 17:30 Pantoprazole (Protonix) 40 mg Q12HR IVP 02/20/19 21:00 03/21/19 17:59 02/27/19 08:45 Potassium Chloride (K-Dur) 20 meq TWICE A DAY NG 02/25/19 18:00 03/27/19 17:59 02/27/19 08:46 Shelbie Howell MD Feb 27, 2019 10:26
--- NOTE | 2019-02-27 10:36 | Nephrology Progress Note ---
Assessment/Plan Problem List: (1) Acute respiratory failure (2) Septic shock (3) Renal failure (4) Atrial fibrillation with rapid ventricular response (5) Cardiomyopathy Assessment Renal failure - ? Acute on Chronic, Partly dehydration Septic Shock UTI AT Fib with FVR h/o DM, proteinuria , HypoAlbuminemia Plan no labs yet today K and Mag supplement as needed One dose Venofer stop NS now intubated On 2 pressors max- BP remains low Poor prognosis - remains full code for now slow Hydrate 2D echo EjFx 40% antibiotics monitor renal parameters avoid nephrotoxics per orders Subjective ROS Limited/Unobtainable: Yes Objective Objective Last 24 Hour Vital Signs Date Time Temp Pulse Resp B/P (MAP) Pulse Ox O2 Delivery O2 Flow Rate FiO2 02/27/19 09:20 111 18 35 02/27/19 09:00 119 16 103/59 (74) 100 02/27/19 08:30 110 18 91/53 (66) 100 02/27/19 08:00 98.4 114 20 94/59 (71) 100 02/27/19 07:43 35 02/27/19 07:30 100 25 91/61 (71) 02/27/19 07:09 114 25 90/57 (68) 02/27/19 07:03 140 16 35 02/27/19 07:00 91/61 02/27/19 07:00 108 18 86/49 (61) 100 02/27/19 06:30 114 18 94/59 (71) 02/27/19 06:00 111 23 97/53 (68) 100 02/27/19 06:00 86/57 02/27/19 05:30 106 20 91/55 (67) 02/27/19 05:08 103 17 40 02/27/19 05:00 91/55 02/27/19 05:00 112 24 93/49 (64) 99 02/27/19 04:30 104 16 89/56 (67) 99 02/27/19 04:00 35 02/27/19 04:00 Endotracheal Tube 02/27/19 04:00 108 22 99/43 (61) 98 02/27/19 04:00 102 02/27/19 04:00 89/56 02/27/19 03:30 109 24 96/57 (70) 98 02/27/19 03:00 96/57 02/27/19 03:00 108 18 106/56 (73) 98 02/27/19 02:51 97 16 40 02/27/19 02:30 107 16 109/76 (87) 99 02/27/19 02:00 101 16 107/58 (74) 02/27/19 02:00 83/60 02/27/19 01:30 104 16 83/51 (62) 02/27/19 01:28 104 16 103/53 (70) 100 02/27/19 01:22 113 18 40 02/27/19 01:00 93/63 02/27/19 01:00 104 16 83/58 (66) 99 02/27/19 00:30 107 18 90/60 (70) 02/27/19 00:00 107 19 98/52 (67) 100 02/27/19 00:00 90/58 02/27/19 00:00 Endotracheal Tube 02/27/19 00:00 35 02/27/19 00:00 104 02/26/19 23:45 105 16 96/54 (68) 02/26/19 23:30 109 21 103/59 (74) 02/26/19 23:21 111 17 40 02/26/19 23:15 103 16 87/56 (66) 02/26/19 23:00 100 16 98/55 (69) 02/26/19 23:00 96/54 02/26/19 22:45 111 19 112/62 (79) 02/26/19 22:30 112/62 02/26/19 22:30 104 17 102/61 (75) 02/26/19 22:15 111 17 95/64 (74) 02/26/19 22:00 107 17 94/59 (71) 02/26/19 22:00 95/64 02/26/19 21:45 106 15 100/59 (73) 02/26/19 21:41 102 16 40 02/26/19 21:30 104 16 87/54 (65) 02/26/19 21:15 107 16 92/55 (67) 02/26/19 21:00 97.8 111 19 106/63 (77) 100 02/26/19 21:00 92/55 02/26/19 20:45 108 18 103/66 (78) 02/26/19 20:30 105 16 98/61 (73) 02/26/19 20:15 106 19 97/59 (72) 02/26/19 20:00 35 02/26/19 20:00 Endotracheal Tube 02/26/19 20:00 97/59 02/26/19 20:00 102 12 100/59 (73) 02/26/19 20:00 110 02/26/19 19:30 99 16 95/66 (76) 02/26/19 19:01 103 16 40 02/26/19 19:00 103 14 95/65 (75) 02/26/19 19:00 99/70 02/26/19 18:30 98 4 100/58 (72) 02/26/19 18:00 98/68 02/26/19 18:00 112 19 113/65 (81) 97 02/26/19 17:30 95/66 02/26/19 17:30 105 18 121/61 (81) 02/26/19 17:21 102 16 40 02/26/19 17:00 100 16 94/64 (74) 02/26/19 16:30 103 17 98/59 (72) 02/26/19 16:00 Endotracheal Tube 02/26/19 16:00 102 02/26/19 16:00 35 02/26/19 16:00 97.6 105 19 98/63 (75) 02/26/19 15:30 110 16 109/65 (80) 02/26/19 15:15 113 18 40 02/26/19 15:00 97 16 96/59 (71) 02/26/19 14:30 105 17 93/60 (71) 92 02/26/19 14:00 100 16 100/60 (73) 100 02/26/19 13:30 106 16 98/61 (73) 92 02/26/19 13:02 98 16 40 02/26/19 13:00 101 16 95/57 (70) 02/26/19 12:30 97 16 103/61 (75) 02/26/19 12:00 Endotracheal Tube 02/26/19 12:00 35 02/26/19 12:00 99 02/26/19 12:00 97.7 101 18 96/58 (71) 02/26/19 11:30 97 18 111/62 (78) 02/26/19 11:28 101 16 40 02/26/19 11:10 100 02/26/19 11:00 101 17 94/62 (73) Intake and Output 02/26/19 02/27/19 19:00 07:00 Intake Total 1720.0 ml 743.27 ml Output Total 480 ml 430 ml Balance 1240.0 ml 313.27 ml Free Water 180 ml 60 ml IV Total 940.0 ml 83.27 ml Tube Feeding 600 ml 600 ml Output Urine Total 430 ml 380 ml Stool Total 50 ml 50 ml Laboratory Tests 02/26/19 11:45: White Blood Count 14.6H, Red Blood Count 2.66L, Hemoglobin 8.7L, Hematocrit 27.4L, Mean Corpuscular Volume 103H, Mean Corpuscular Hemoglobin 32.7H, Mean Corpuscular Hemoglobin Concent 31.7L, Red Cell Distribution Width 17.5H, Platelet Count 24L, Mean Platelet Volume 6.0L, Neutrophils (%) (Auto) , Lymphocytes (%) (Auto) , Monocytes (%) (Auto) , Eosinophils (%) (Auto) , Basophils (%) (Auto) , Differential Total Cells Counted 100, Neutrophils % ( Manual) 95H, Lymphocytes % (Manual) 2L, Monocytes % (Manual) 3, Eosinophils % ( Manual) 0, Basophils % (Manual) 0, Band Neutrophils 0, Platelet Estimate DecreasedL, Platelet Morphology Normal, Polychromasia 1+, Hypochromasia 1+, Anisocytosis 1+, Macrocytosis 2+ 02/27/19 09:40: White Blood Count [Pending], Red Blood Count [Pending], Hemoglobin [Pending], Hematocrit [Pending], Mean Corpuscular Volume [Pending], Mean Corpuscular Hemoglobin [Pending], Mean Corpuscular Hemoglobin Concent [Pending], Red Cell Distribution Width [Pending], Platelet Count [Pending], Mean Platelet Volume [ Pending], Neutrophils (%) (Auto) [Pending], Lymphocytes (%) (Auto) [Pending], Monocytes (%) (Auto) [Pending], Eosinophils (%) (Auto) [Pending], Basophils (%) (Auto) [Pending], Sodium Level [Pending], Potassium Level [Pending], Chloride Level [Pending], Carbon Dioxide Level [Pending], Blood Urea Nitrogen [Pending], Creatinine [Pending], Estimat Glomerular Filtration Rate [Pending], Glucose Level [Pending], Calcium Level [Pending], Phosphorus Level [Pending], Magnesium Level [Pending], Total Bilirubin [Pending], Aspartate Amino Transf (AST/SGOT) [ Pending], Alanine Aminotransferase (ALT/SGPT) [Pending], Alkaline Phosphatase [ Pending], Total Protein [Pending], Albumin [Pending], Globulin [Pending], Digoxin Level [Pending] Height (Feet): 5 Height (Inches): 6.00 Weight (Pounds): 156 General Appearance: no apparent distress EENT: other - vented Cardiovascular: tachycardia Respiratory/Chest: decreased breath sounds Abdomen: distended Jt Louis MD Feb 27, 2019 10:36
[2019-02-27 10:48] LABS: HEMATOCRIT 26.5 % (37.0-47.0); HEMOGLOBIN 8.6 G/DL (12.0-16.0); MEAN CORPUSCULAR VOLUME 101 FL (80-99); PLATELET COUNT 44 K/UL (150-450); RED BLOOD COUNT 2.62 M/UL (4.20-5.40); RED CELL DISTRIBUTION WIDTH 17.1 % (11.6-14.8)
[2019-02-27 10:59] LABS: ANION GAP 7 mmol/L (5-15); BLOOD UREA NITROGEN 34 mg/dL (7-18); CALCIUM 7.4 MG/DL (8.5-10.1); CARBON DIOXIDE 25 MMOL/L (21-32); CHLORIDE 113 MMOL/L (98-107); CREATININE 1.2 MG/DL (0.55-1.30); SODIUM 145 MMOL/L (136-145)
[2019-02-27 11:12] LABS: ALANINE AMINOTRANSFERASE 51 U/L (12-78); ALBUMIN 1.6 G/DL (3.4-5.0); ALBUMIN/GLOBULIN RATIO 0.5 (1.0-2.7); ALKALINE PHOSPHATASE 131 U/L (46-116); ASPARTATE AMINO TRANSFERASE 79 U/L (15-37); BILIRUBIN,TOTAL 1.8 MG/DL (0.2-1.0); PHOSPHORUS 2.5 MG/DL (2.5-4.9)
--- NOTE | 2019-02-27 11:15 | NUR ---
NURSE NOTES: Patient remains on bilateral wrist restraints for attempting to reaching towards et-tube, skin remains intact at the wrist with pulses present and distally, remains tolerating tube feeding at 50ml/hr through G-tube.
[2019-02-27 11:49] LABS: BILIRUBIN,DIRECT 1.3 MG/DL (0.0-0.3)
--- NOTE | 2019-02-27 12:34 | NUR ---
NURSE NOTES: Blood Bank called to inform platelet is on its way, platelet has increased to 44 since yesterday 24. there is no bleeding noted from PICC Line or Right IJ TLC,
--- NOTE | 2019-02-27 13:09 | NUR ---
RD ASSESSMENT & RECOMMENDATIONS SEE CARE ACTIVITY FOR COMPLETE ASSESSMENT DAILY ESTIMATED NEEDS: Needs based on CRITICAL CARE, Sepsis, wound/ 51.4kg 22-30 kcals/kg 1372-7249 total kcals 1.25-2 g protein/kg 64-102 g total protein 25-30 mL/kg 285-1542 total fluid mLs NUTRITION DIAGNOSIS: * Swallowing difficulty R/T dysphagia, respiratory status as evidenced by h/o PEG, on GT feeding + oral grat on texture modified diet [employer], pt now orally intubated, on tube feeds. * Increased kcal/prot needs R/T sepsis as evidenced by elev wbc, febrile, elev RR -> wnl, elev HR, elev LA (11.8 -> 2.2 trend down), hypotensive, on pressor support. CURRENT TF:Vital @50 ENTERAL NUTRITION RECOMMENDATIONS: Vital AF 1.2 @ 50ml/hr x 24 hrs to provide 1050ml, 1260kcal, 78g prot, 851ml free water * WITH HEMODYNAMIC STABILITY -> initiate Vital AF 1.2 @ 20ml/hr x 6 hrs, advance 10ml q 4-6 hrs as tolerated to goal rate -> HOB over 30 degrees/ water flush per MD * WITHOUT HEMODYNAMIC STABILITY -> rec trophic feeds of Vital AF 1.2 @ 10ml/hr x 24 hrs -------- ADDITIONAL RECOMMENDATIONS: * RECALIBRATED BEDSCALE WT Per SNF, HT=65", [id number] (02/14/19) VS [facility] nd=011yro * Monitor hemodynamic stability: pressor support restarted * Monitor POC: social service consulted for end of life discussion * Monitor lytes closely, replete as needed * When able to feeds at goal add CATHERINE BID + Vit C 250mg qd for wound care
--- NOTE | 2019-02-27 15:21 | NUR ---
*-* INSURANCE *-* ALL CLINICALS AND REVIEWS HAVE BEEN FAXED TO: MARGARITA Clement Ref#[id number] CM: Dung #[phone] ext [phone] fax#[phone]
--- NOTE | 2019-02-27 18:25 | NUR ---
NURSE NOTES: transfusion of Platelet started with no reaction noted, patient remains on Levophed at 4mcg/min.
--- NOTE | 2019-02-27 19:30 | NUR ---
NURSE NOTES: Received pt with 1 unit Plateletpheresis finishing up. Pt is alert, followed simple commands, Afib on the monitor, 100-130s .Bp been supported with Levophed drip at 6mcg/min, and infusing to Rt IJ central line. Site with drsg dry and intact, Bilateral soft wrist restraints on for safety to avoid self extubation. Pt with multiple pressure sores. pls see pictures and covered with optifoam dry and intact. Will continue to monitor.
--- NOTE | 2019-02-27 19:32 | NUR ---
HAND-OFF: Report given to ANDREINA Chavez.
--- NOTE | 2019-02-27 20:00 | NUR ---
NURSE NOTES: Levophed drip increase to 10mcg/min, due to low BP
[2019-02-27] MEDS: Dyna-Hex 2% Top Sol 2oz TOPIC SCH (20:25)
--- NOTE | 2019-02-27 21:00 | NUR ---
NURSE NOTES: Suctioned tk beige secretions moderate in amt. 02 sat>95%
--- NOTE | 2019-02-27 21:47 | Progress Note ---
DATE: 02/27/2019 CARDIOLOGY PROGRESS NOTE SUBJECTIVE: The patient remains in the intensive care unit. Condition remains critical. Prognosis guarded. She remains intubated. Still on low-dose pressors with difficulty tapering off completely. Monitored rhythm, sinus with nonsustained arrhythmias. OBJECTIVE: VITAL SIGNS: Blood pressure 92/55, pulse 108, respirations 17, afebrile. GENERAL: Orally intubated and mechanically ventilated. LUNGS: Bilateral rhonchi. CARDIAC: Regular rhythm and rapid rate. Normal S1, S2. ABDOMEN: Soft. EXTREMITIES: 2+ dependent edema. LABORATORY DATA: White count 15, hemoglobin 8.6. Sodium 145, potassium 4, bicarbonate 25, BUN 34, creatinine 1.2. Glucose 171 and magnesium 1.7. Albumin 1.6. IMPRESSION: 1. Sepsis with shock. 2. Respiratory failure. 3. Hypomagnesemia. 4. Sinus tachycardia. 5. Recovered hypothermia. 6. Right-sided acute on chronic diastolic congestive heart failure with systolic component as well. 7. Chronic liver disease with cirrhosis. 8. Paroxysmal atrial fibrillation. PLAN: 1. Continue ventilator support. 2. Taper off pressors. 3. Antimicrobials. 4. Respiratory hygiene. 5. Not able to diurese at this time. Jimmie Mason M.D. DR: JOSE JOB#: [id number] CC: CHRISTINE
--- NOTE | 2019-02-27 23:15 | General Progress Note ---
Assessment/Plan Status: stable, not improved, deteriorating Assessment/Plan: Assessment - GT dependent - Hepatitis C (+) - Abnormal LFT, ascites, thrombocytopenia - suspect chronic liver disease - Lactic acidosis - Resp failure - OBS / Delirium - Azotemia - Diarrhea - r/o C Diff - poor PX Recommendations - check C diff - supportive care - Abx per ID - agree with DNR Subjective Allergies: Coded Allergies: No Known Allergies (Unverified , 02/19/19) Subjective Above noted doing poorly intubated unresponsive platelets lower Objective Last 24 Hour Vital Signs Date Time Temp Pulse Resp B/P (MAP) Pulse Ox O2 Delivery O2 Flow Rate FiO2 02/27/19 22:46 125 16 35 02/27/19 21:30 120 17 115/66 (82) 100 02/27/19 21:20 118 20 35 02/27/19 21:15 121 17 108/59 (75) 99 02/27/19 21:00 119 22 108/67 (81) 99 02/27/19 20:30 115 17 108/73 (85) 99 02/27/19 20:00 Mechanical Ventilator 02/27/19 20:00 103/63 02/27/19 20:00 98.5 105 16 103/63 (76) 99 02/27/19 19:30 107 18 91/50 (64) 98 02/27/19 19:12 121 16 35 02/27/19 19:00 108 17 92/55 (67) 99 02/27/19 19:00 94/58 02/27/19 18:30 110 16 102/59 (73) 99 02/27/19 18:00 113 16 102/52 (69) 100 02/27/19 17:30 108 16 97/54 (68) 99 02/27/19 17:23 108 20 35 02/27/19 17:00 109 16 109/53 (71) 100 02/27/19 16:30 102 16 99/58 (72) 100 02/27/19 16:00 98.7 94 16 94/49 (64) 100 02/27/19 16:00 105 02/27/19 16:00 Mechanical Ventilator 02/27/19 16:00 35 02/27/19 15:30 102 7 105/52 (69) 99 02/27/19 15:00 108 16 94/57 (69) 99 02/27/19 14:38 108 16 35 02/27/19 14:30 114 15 96/57 (70) 100 02/27/19 14:00 116 15 110/75 (87) 100 02/27/19 14:00 110/75 02/27/19 13:30 117 26 95/51 (66) 100 02/27/19 13:24 112 17 35 02/27/19 13:00 115 19 85/52 (63) 100 02/27/19 12:30 120 18 95/58 (70) 100 02/27/19 12:00 111 02/27/19 12:00 35 02/27/19 12:00 98.1 113 16 97/69 (78) 100 02/27/19 12:00 Mechanical Ventilator 02/27/19 11:30 117 19 91/68 (76) 99 02/27/19 11:00 115 19 112/62 (79) 100 02/27/19 10:59 111 16 35 02/27/19 10:30 111 17 101/56 (71) 100 02/27/19 10:00 114 20 92/55 (67) 100 02/27/19 09:30 114 18 92/64 (73) 100 02/27/19 09:20 111 18 35 02/27/19 09:00 119 16 103/59 (74) 100 02/27/19 08:30 110 18 91/53 (66) 100 02/27/19 08:00 107 02/27/19 08:00 Mechanical Ventilator 02/27/19 08:00 98.4 114 20 94/59 (71) 100 02/27/19 07:43 35 02/27/19 07:30 100 25 91/61 (71) 02/27/19 07:09 114 25 90/57 (68) 02/27/19 07:03 140 16 35 02/27/19 07:00 91/61 02/27/19 07:00 108 18 86/49 (61) 100 02/27/19 06:30 114 18 94/59 (71) 02/27/19 06:00 111 23 97/53 (68) 100 02/27/19 06:00 86/57 02/27/19 05:30 106 20 91/55 (67) 02/27/19 05:08 103 17 40 02/27/19 05:00 91/55 02/27/19 05:00 112 24 93/49 (64) 99 02/27/19 04:30 104 16 89/56 (67) 99 02/27/19 04:00 35 02/27/19 04:00 Endotracheal Tube 02/27/19 04:00 108 22 99/43 (61) 98 02/27/19 04:00 102 02/27/19 04:00 89/56 02/27/19 03:30 109 24 96/57 (70) 98 02/27/19 03:00 96/57 02/27/19 03:00 108 18 106/56 (73) 98 02/27/19 02:51 97 16 40 02/27/19 02:30 107 16 109/76 (87) 99 02/27/19 02:00 101 16 107/58 (74) 02/27/19 02:00 83/60 02/27/19 01:30 104 16 83/51 (62) 02/27/19 01:28 104 16 103/53 (70) 100 02/27/19 01:22 113 18 40 02/27/19 01:00 93/63 02/27/19 01:00 104 16 83/58 (66) 99 02/27/19 00:30 107 18 90/60 (70) 02/27/19 00:00 107 19 98/52 (67) 100 02/27/19 00:00 90/58 02/27/19 00:00 Endotracheal Tube 02/27/19 00:00 35 02/27/19 00:00 104 02/26/19 23:45 105 16 96/54 (68) 02/26/19 23:30 109 21 103/59 (74) 02/26/19 23:21 111 17 40 02/26/19 23:15 103 16 87/56 (66) Intake and Output 02/26/19 02/27/19 18:59 06:59 Intake Total 1712.5 ml 750.77 ml Output Total 440 ml 485 ml Balance 1272.5 ml 265.77 ml Free Water 180 ml 60 ml IV Total 932.5 ml 90.77 ml Tube Feeding 600 ml 600 ml Output Urine Total 440 ml 385 ml Stool Total 100 ml Laboratory Tests 02/27/19 09:40: White Blood Count 15.0H, Red Blood Count 2.62L, Hemoglobin 8.6L, Hematocrit 26.5L, Mean Corpuscular Volume 101H, Mean Corpuscular Hemoglobin 32.8H, Mean Corpuscular Hemoglobin Concent 32.5, Red Cell Distribution Width 17.1H, Platelet Count 44#L, Mean Platelet Volume 11.8H, Neutrophils (%) (Auto) , Lymphocytes (%) (Auto) , Monocytes (%) (Auto) , Eosinophils (%) (Auto) , Basophils (%) (Auto) , Differential Total Cells Counted 100, Neutrophils % ( Manual) 95H, Lymphocytes % (Manual) 1L, Monocytes % (Manual) 1, Eosinophils % ( Manual) 1, Basophils % (Manual) 0, Band Neutrophils 2, Platelet Estimate DecreasedL, Platelet Morphology Normal, Hypochromasia 1+, Anisocytosis 1+, Macrocytosis 1+, Sodium Level 145, Potassium Level 4.0, Chloride Level 113H, Carbon Dioxide Level 25, Anion Gap 7, Blood Urea Nitrogen 34H, Creatinine 1.2, Estimat Glomerular Filtration Rate , Glucose Level 171H, Calcium Level 7.4L, Phosphorus Level 2.5, Magnesium Level 1.7L, Total Bilirubin 1.8H, Direct Bilirubin 1.3H, Aspartate Amino Transf (AST/SGOT) 79H, Alanine Aminotransferase (ALT/SGPT) 51, Alkaline Phosphatase 131H, Total Protein 4.9L, Albumin 1.6L, Globulin 3.3, Albumin/Globulin Ratio 0.5L, Digoxin Level 1.6 Height (Feet): 5 Height (Inches): 6.00 Weight (Pounds): 156 Objective WDWN NCAT Supple Coarse ronchi RR abd soft ND NT, (+) GT obtunded César Saldana MD Feb 27, 2019 23:15
[2019-02-28] VITALS (58 sets, daily range): BP systolic 86–127; BP diastolic 38–76
--- NOTE | 2019-02-28 | NUR ---
NURSE NOTES: Sleeping well at this time. Pt still Afib on the monitor. 100-120/min- Dr suárez was aware.
--- NOTE | 2019-02-28 02:00 | NUR ---
NURSE NOTES: Rectal tube to gravity with brownish stool moderate in amt. Not leaking,
--- NOTE | 2019-02-28 04:00 | NUR ---
NURSE NOTES: Complete bath with bed changed was done.
[2019-02-28 05:29] LABS: HEMATOCRIT 27.8 % (37.0-47.0); HEMOGLOBIN 8.6 G/DL (12.0-16.0); MEAN CORPUSCULAR VOLUME 105 FL (80-99); PLATELET COUNT 102 K/UL (150-450); RED BLOOD COUNT 2.67 M/UL (4.20-5.40); RED CELL DISTRIBUTION WIDTH 19.1 % (11.6-14.8); WHITE BLOOD COUNT 18.5 K/UL (4.8-10.8)
[2019-02-28 05:41] LABS: ALANINE AMINOTRANSFERASE 55 U/L (12-78); ALBUMIN 1.7 G/DL (3.4-5.0); ALBUMIN/GLOBULIN RATIO 0.5 (1.0-2.7); ALKALINE PHOSPHATASE 156 U/L (46-116); ANION GAP 4 mmol/L (5-15); ASPARTATE AMINO TRANSFERASE 80 U/L (15-37); BILIRUBIN,TOTAL 1.8 MG/DL (0.2-1.0); BLOOD UREA NITROGEN 32 mg/dL (7-18); CALCIUM 7.7 MG/DL (8.5-10.1); CARBON DIOXIDE 28 MMOL/L (21-32); CHLORIDE 111 MMOL/L (98-107); CREATININE 1.2 MG/DL (0.55-1.30); POTASSIUM 4.5 MMOL/L (3.5-5.1); SODIUM 143 MMOL/L (136-145)
[2019-02-28 06:03] LABS: BILIRUBIN,DIRECT 1.3 MG/DL (0.0-0.3)
[2019-02-28] MEDS: Norepinephrine Bitartrate 16 MG in D5W 500ml 484 ML IV SCH (06:09)
--- NOTE | 2019-02-28 06:38 | NUR ---
NURSE NOTES: No resp. distress noted. Pt more awake and alert, and followed simple commands.
--- NOTE | 2019-02-28 06:55 | NUR ---
RESPIRATORY NOTE: Received pt on vent with current settings in place. Plugged into red outlet. The pt is orally intubated with 7.0mm ett, it is scure and in place, secured via anchor fast @ 22cm @lipline. Minimal secretions noted. No distress noted. All vents alarms are on and audible. Ambubag at bedside. Will cont to monitor pt closely.
--- NOTE | 2019-02-28 07:28 | NUR ---
HAND-OFF: Report given to Yolette HDZ.
--- NOTE | 2019-02-28 07:29 | NUR ---
NURSE NOTES: RECEIVED PATIENT FROM Amina STOKES RN. PATIENT IS LYING IN BED, AWAKE AND RESPONSIVE. 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 HR OF 112. ORALLY INTUBATED, SIZE 7 AT 22CM LIP LINE. VENT SETTINGS OF AC 16, VT 500, FiO2 35%, PEEP 5. NO SIGNS OF DISTRESS OF THE MOMENT. GT NOTED WITH GTF VITAL AF AT 50ML/HR. RECTAL TUBE CONNECTED TO BAG BY GRAVITY. HATFIELD NOTED, DRAINING YELLOW URINE. SKIN ALTERATION NOTED. TLC ON R IJ AND L UA PICC WITH LEVOPHED RUNNING AT 10MCG/MIN FOLLOWING HOSPITAL PROTOCOL. CALL LIGHT WITHIN REACH. BED AT LOWEST POSITION. SIDE RAILS UP. WILL CONTINUE TO MONITOR.
--- NOTE | 2019-02-28 07:57 | General Progress Note ---
Assessment/Plan Problem List: (1) Septic shock ICD Codes: A41.9 - Sepsis, unspecified organism; R65.21 - Severe sepsis with septic shock SNOMED: 72067762 (2) UTI (urinary tract infection) ICD Codes: N39.0 - Urinary tract infection, site not specified SNOMED: 15801164 Qualifiers: Qualified Codes: N39.0 - Urinary tract infection, site not specified (3) Renal failure ICD Codes: N19 - Unspecified kidney failure SNOMED: 02830659 Qualifiers: Qualified Codes: N17.9 - Acute kidney failure, unspecified (4) Abdominal pain ICD Codes: R10.9 - Unspecified abdominal pain SNOMED: 43252378 Qualifiers: Qualified Codes: R10.32 - Left lower quadrant pain (5) Severe sepsis ICD Codes: A41.9 - Sepsis, unspecified organism; R65.20 - Severe sepsis without septic shock SNOMED: 45994132 (6) Dehydration ICD Codes: E86.0 - Dehydration SNOMED: 95752549 (7) Atrial fibrillation with rapid ventricular response ICD Codes: I48.91 - Unspecified atrial fibrillation SNOMED: 738039446142123 Status: stable, not improved, deteriorating Assessment/Plan: cont supportive care pressors- wean as able. still on levo- try to wean wean vent resp rx and suctioning as needed follow up labs- replace lytes as needed iv abx per id tube feeds Subjective ROS Limited/Unobtainable: Yes Constitutional: Reports: malaise, weakness HEENT: Reports: no symptoms Cardiovascular: Reports: no symptoms Respiratory: Reports: cough Gastrointestinal/Abdominal: Reports: difficulty swallowing Genitourinary: Reports: no symptoms Neurologic/Psychiatric: Reports: pre-existing deficit Endocrine: Reports: no symptoms Hematologic/Lymphatic: Reports: anemia Allergies: Coded Allergies: No Known Allergies (Unverified , 02/19/19) All Systems: reviewed and negative except above Subjective remains intubated on pressors. increased pressor requirements. tolerating feeds. Objective Last 24 Hour Vital Signs Date Time Temp Pulse Resp B/P (MAP) Pulse Ox O2 Delivery O2 Flow Rate FiO2 02/28/19 07:11 126 20 35 02/28/19 06:30 122 17 105/67 (80) 99 02/28/19 06:09 108/61 02/28/19 06:00 99/60 02/28/19 06:00 118 18 116/76 (89) 98 02/28/19 05:30 122 18 107/62 (77) 98 02/28/19 05:18 117 16 35 02/28/19 05:00 113/66 02/28/19 05:00 117 17 113/70 (84) 98 02/28/19 04:45 123 17 86/60 (69) 98 02/28/19 04:30 118 17 125/63 (83) 99 02/28/19 04:00 Mechanical Ventilator 02/28/19 04:00 98.6 120 16 116/64 (81) 99 02/28/19 04:00 116 02/28/19 04:00 35 02/28/19 04:00 113/70 02/28/19 03:30 120 17 109/61 (77) 98 02/28/19 03:00 117 16 100/56 (71) 02/28/19 03:00 114/58 02/28/19 02:56 114 16 35 02/28/19 02:30 120 16 109/65 (80) 99 02/28/19 02:00 119 17 112/54 (73) 99 02/28/19 02:00 111/65 02/28/19 01:30 122 16 103/65 (78) 98 02/28/19 01:00 118 16 114/63 (80) 99 02/28/19 01:00 115/65 02/28/19 00:32 120 16 35 02/28/19 00:30 123 16 110/61 (77) 99 02/28/19 00:00 122 02/28/19 00:00 35 02/28/19 00:00 110/63 02/28/19 00:00 98.5 122 16 114/64 (81) 100 02/28/19 00:00 Mechanical Ventilator 02/27/19 23:45 118 16 112/65 (81) 02/27/19 23:30 120 16 118/67 (84) 02/27/19 23:00 110/72 02/27/19 23:00 118 16 118/72 (87) 99 02/27/19 22:46 125 16 35 02/27/19 22:30 122 17 97/54 (68) 100 02/27/19 22:00 127 18 120/66 (84) 100 02/27/19 22:00 115/63 02/27/19 21:30 120 17 115/66 (82) 100 02/27/19 21:20 118 20 35 02/27/19 21:15 121 17 108/59 (75) 99 02/27/19 21:00 119 22 108/67 (81) 99 02/27/19 21:00 108/59 02/27/19 20:30 115 17 108/73 (85) 99 02/27/19 20:00 35 02/27/19 20:00 Mechanical Ventilator 02/27/19 20:00 103/63 02/27/19 20:00 110 02/27/19 20:00 98.5 105 16 103/63 (76) 99 02/27/19 19:30 107 18 91/50 (64) 98 02/27/19 19:12 121 16 35 02/27/19 19:00 108 17 92/55 (67) 99 02/27/19 19:00 94/58 02/27/19 18:30 110 16 102/59 (73) 99 02/27/19 18:00 113 16 102/52 (69) 100 02/27/19 17:30 108 16 97/54 (68) 99 02/27/19 17:23 108 20 35 02/27/19 17:00 109 16 109/53 (71) 100 02/27/19 16:30 102 16 99/58 (72) 100 02/27/19 16:00 98.7 94 16 94/49 (64) 100 02/27/19 16:00 105 02/27/19 16:00 Mechanical Ventilator 02/27/19 16:00 35 02/27/19 15:30 102 7 105/52 (69) 99 02/27/19 15:00 108 16 94/57 (69) 99 02/27/19 14:38 108 16 35 02/27/19 14:30 114 15 96/57 (70) 100 02/27/19 14:00 116 15 110/75 (87) 100 02/27/19 14:00 110/75 02/27/19 13:30 117 26 95/51 (66) 100 02/27/19 13:24 112 17 35 02/27/19 13:00 115 19 85/52 (63) 100 02/27/19 12:30 120 18 95/58 (70) 100 02/27/19 12:00 111 02/27/19 12:00 35 02/27/19 12:00 98.1 113 16 97/69 (78) 100 02/27/19 12:00 Mechanical Ventilator 02/27/19 11:30 117 19 91/68 (76) 99 02/27/19 11:00 115 19 112/62 (79) 100 02/27/19 10:59 111 16 35 02/27/19 10:30 111 17 101/56 (71) 100 02/27/19 10:00 114 20 92/55 (67) 100 02/27/19 09:30 114 18 92/64 (73) 100 02/27/19 09:20 111 18 35 02/27/19 09:00 119 16 103/59 (74) 100 02/27/19 08:30 110 18 91/53 (66) 100 02/27/19 08:00 107 02/27/19 08:00 Mechanical Ventilator 02/27/19 08:00 98.4 114 20 94/59 (71) 100 Intake and Output 02/27/19 02/28/19 19:00 07:00 Intake Total 940.00 ml 898.75 ml Output Total 920 ml 480 ml Balance 20.00 ml 418.75 ml Free Water 200 ml 150 ml IV Total 120.00 ml 198.75 ml Tube Feeding 550 ml 550 ml Other 70 ml Output Urine Total 420 ml 480 ml Stool Total 500 ml Laboratory Tests 02/27/19 09:40: White Blood Count 15.0H, Red Blood Count 2.62L, Hemoglobin 8.6L, Hematocrit 26.5L, Mean Corpuscular Volume 101H, Mean Corpuscular Hemoglobin 32.8H, Mean Corpuscular Hemoglobin Concent 32.5, Red Cell Distribution Width 17.1H, Platelet Count 44#L, Mean Platelet Volume 11.8H, Neutrophils (%) (Auto) , Lymphocytes (%) (Auto) , Monocytes (%) (Auto) , Eosinophils (%) (Auto) , Basophils (%) (Auto) , Differential Total Cells Counted 100, Neutrophils % ( Manual) 95H, Lymphocytes % (Manual) 1L, Monocytes % (Manual) 1, Eosinophils % ( Manual) 1, Basophils % (Manual) 0, Band Neutrophils 2, Platelet Estimate DecreasedL, Platelet Morphology Normal, Hypochromasia 1+, Anisocytosis 1+, Macrocytosis 1+, Sodium Level 145, Potassium Level 4.0, Chloride Level 113H, Carbon Dioxide Level 25, Anion Gap 7, Blood Urea Nitrogen 34H, Creatinine 1.2, Estimat Glomerular Filtration Rate , Glucose Level 171H, Calcium Level 7.4L, Phosphorus Level 2.5, Magnesium Level 1.7L, Total Bilirubin 1.8H, Direct Bilirubin 1.3H, Aspartate Amino Transf (AST/SGOT) 79H, Alanine Aminotransferase (ALT/SGPT) 51, Alkaline Phosphatase 131H, Total Protein 4.9L, Albumin 1.6L, Globulin 3.3, Albumin/Globulin Ratio 0.5L, Digoxin Level 1.6 02/28/19 03:20: White Blood Count 18.5H, Red Blood Count 2.67L, Hemoglobin 8.6L, Hematocrit 27.8L, Mean Corpuscular Volume 105H, Mean Corpuscular Hemoglobin 32.4H, Mean Corpuscular Hemoglobin Concent 31.0L, Red Cell Distribution Width 19.1H, Platelet Count 102#L, Mean Platelet Volume 7.1, Neutrophils (%) (Auto) , Lymphocytes (%) (Auto) , Monocytes (%) (Auto) , Eosinophils (%) (Auto) , Basophils (%) (Auto) , Neutrophils % (Manual) [Pending], Lymphocytes % (Manual) [Pending], Platelet Estimate [Pending], Platelet Morphology [Pending], Sodium Level 143, Potassium Level 4.5, Chloride Level 111H, Carbon Dioxide Level 28, Anion Gap 4L, Blood Urea Nitrogen 32H, Creatinine 1.2, Estimat Glomerular Filtration Rate , Glucose Level 189H, Calcium Level 7.7L, Total Bilirubin 1.8H, Direct Bilirubin 1.3H, Aspartate Amino Transf (AST/SGOT) 80H, Alanine Aminotransferase (ALT/SGPT) 55, Alkaline Phosphatase 156H, Total Protein 5.4L, Albumin 1.7L, Globulin 3.7, Albumin/Globulin Ratio 0.5L Height (Feet): 5 Height (Inches): 6.00 Weight (Pounds): 158 Objective General Appearance: WD/WN, confused. more responsive, orally intubated Neck: supple Cardiovascular: irregularly irregular Respiratory/Chest: chest wall non-tender, lungs clear, normal breath sounds, no respiratory distress Abdomen: normal bowel sounds, non tender, soft, no organomegaly Edema: no edema noted Arm (L), no edema noted Arm (R), no edema noted Leg (L), no edema noted Leg (R), no edema noted Pedal (L), no edema noted Pedal (R), no edema noted Generalized Neurologic: disoriented Mitchel Reis MD Feb 28, 2019 07:57
--- NOTE | 2019-02-28 08:12 | NUR ---
NURSE NOTES: SEEN AND EXAMINED BY DR SINGLETARY WITH NEW ORDERS MADE. WILL CONTINUE TO MONITOR.
[2019-02-28 08:34] LABS: PHOSPHORUS 2.1 MG/DL (2.5-4.9)
[2019-02-28] MEDS: Pantoprazole Inj IVP SCH ×2 (08:40→20:32)
--- NOTE | 2019-02-28 09:11 | NUR ---
CASE MANAGEMENT:REVIEW 02/27/19 SI: SEPTIC SHOCK. RENAL FAILURE AFIB W/RVR. CARDIOMYOPATHY. INTUBATED 98.1 113 16 97/69 100% ON VENT SUPPORT 35% WBC+15.0 H/H-8.6/26.5 PLT-44 CA-7.4 MAG-1.7 IS: LEVOPHED GTT LEVAQUIN NG QD K-DUR NG BID IV PROTONIX Q12 : ICU STATUS DCP: FROM [facility] CARE PLAN: BP SUPPORT WEAN FROM VENT
--- NOTE | 2019-02-28 09:30 | NUR ---
RESPIRATORY NOTE: Began weaning @ 0930. Spoke with rn, summer grimes to be ordered for 1030. Pt doing very well tolerating all weaning measures, will cont to closely monitor.
--- NOTE | 2019-02-28 09:59 | Infectious Diseases Prog Note ---
Assessment/Plan Assessment/Plan A 1. pneumonia 2. fungal UTI 3.Acute renal failure 4. septic shock 5. CHF, systolic 6. dementia 7. Hypoxic respiratory failure 8. 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 Portal hypertension 12. 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 continue Levaquin 2. Poor prognosis Subjective ROS Limited/Unobtainable: Yes Gastrointestinal/Abdominal: Reports: diarrhea, other - was on Lactulose Neurologic: Reports: other - more alert, on restraint Allergies: Coded Allergies: No Known Allergies (Unverified , 02/19/19) Objective Vital Signs Last 24 Hour Vital Signs Date Time Temp Pulse Resp B/P (MAP) Pulse Ox O2 Delivery O2 Flow Rate FiO2 02/28/19 09:30 100 02/28/19 09:30 123 24 35 02/28/19 09:24 117 18 35 02/28/19 08:00 35 02/28/19 07:11 126 20 35 02/28/19 06:30 122 17 105/67 (80) 99 02/28/19 06:09 108/61 02/28/19 06:00 99/60 02/28/19 06:00 118 18 116/76 (89) 98 02/28/19 05:30 122 18 107/62 (77) 98 02/28/19 05:18 117 16 35 02/28/19 05:00 113/66 02/28/19 05:00 117 17 113/70 (84) 98 02/28/19 04:45 123 17 86/60 (69) 98 02/28/19 04:30 118 17 125/63 (83) 99 02/28/19 04:00 Mechanical Ventilator 02/28/19 04:00 98.6 120 16 116/64 (81) 99 02/28/19 04:00 116 02/28/19 04:00 35 02/28/19 04:00 113/70 02/28/19 03:30 120 17 109/61 (77) 98 02/28/19 03:00 117 16 100/56 (71) 02/28/19 03:00 114/58 02/28/19 02:56 114 16 35 02/28/19 02:30 120 16 109/65 (80) 99 02/28/19 02:00 119 17 112/54 (73) 99 02/28/19 02:00 111/65 02/28/19 01:30 122 16 103/65 (78) 98 02/28/19 01:00 118 16 114/63 (80) 99 02/28/19 01:00 115/65 02/28/19 00:32 120 16 35 02/28/19 00:30 123 16 110/61 (77) 99 02/28/19 00:00 122 02/28/19 00:00 35 02/28/19 00:00 110/63 02/28/19 00:00 98.5 122 16 114/64 (81) 100 02/28/19 00:00 Mechanical Ventilator 02/27/19 23:45 118 16 112/65 (81) 02/27/19 23:30 120 16 118/67 (84) 02/27/19 23:00 110/72 02/27/19 23:00 118 16 118/72 (87) 99 02/27/19 22:46 125 16 35 02/27/19 22:30 122 17 97/54 (68) 100 02/27/19 22:00 127 18 120/66 (84) 100 02/27/19 22:00 115/63 02/27/19 21:30 120 17 115/66 (82) 100 02/27/19 21:20 118 20 35 02/27/19 21:15 121 17 108/59 (75) 99 02/27/19 21:00 119 22 108/67 (81) 99 02/27/19 21:00 108/59 02/27/19 20:30 115 17 108/73 (85) 99 02/27/19 20:00 35 02/27/19 20:00 Mechanical Ventilator 02/27/19 20:00 103/63 02/27/19 20:00 110 02/27/19 20:00 98.5 105 16 103/63 (76) 99 02/27/19 19:30 107 18 91/50 (64) 98 02/27/19 19:12 121 16 35 02/27/19 19:00 108 17 92/55 (67) 99 02/27/19 19:00 94/58 02/27/19 18:30 110 16 102/59 (73) 99 02/27/19 18:00 113 16 102/52 (69) 100 02/27/19 17:30 108 16 97/54 (68) 99 02/27/19 17:23 108 20 35 02/27/19 17:00 109 16 109/53 (71) 100 02/27/19 16:30 102 16 99/58 (72) 100 02/27/19 16:00 98.7 94 16 94/49 (64) 100 02/27/19 16:00 105 02/27/19 16:00 Mechanical Ventilator 02/27/19 16:00 35 02/27/19 15:30 102 7 105/52 (69) 99 02/27/19 15:00 108 16 94/57 (69) 99 02/27/19 14:38 108 16 35 02/27/19 14:30 114 15 96/57 (70) 100 02/27/19 14:00 116 15 110/75 (87) 100 02/27/19 14:00 110/75 02/27/19 13:30 117 26 95/51 (66) 100 02/27/19 13:24 112 17 35 02/27/19 13:00 115 19 85/52 (63) 100 02/27/19 12:30 120 18 95/58 (70) 100 02/27/19 12:00 111 02/27/19 12:00 35 02/27/19 12:00 98.1 113 16 97/69 (78) 100 02/27/19 12:00 Mechanical Ventilator 02/27/19 11:30 117 19 91/68 (76) 99 02/27/19 11:00 115 19 112/62 (79) 100 02/27/19 10:59 111 16 35 02/27/19 10:30 111 17 101/56 (71) 100 02/27/19 10:00 114 20 92/55 (67) 100 Height (Feet): 5 Height (Inches): 6.00 Weight (Pounds): 158 HEENT: other - orally intubated Respiratory/Chest: rhonchi - bilaterally, other - on ventiltor Cardiovascular: tachycardia, other - RIJ cental line, left arm PICC line Abdomen: soft, non tender, other - GT feeding Extremities: other - edema Neurologic/Psychiatric: alert, responsive Laboratory Tests Test 02/28/19 03:20 White Blood Count 18.5 K/UL (4.8-10.8) H Red Blood Count 2.67 M/UL (4.20-5.40) L Hemoglobin 8.6 G/DL (12.0-16.0) L Hematocrit 27.8 % (37.0-47.0) L Mean Corpuscular Volume 105 FL (80-99) H Mean Corpuscular Hemoglobin 32.4 PG (27.0-31.0) H Mean Corpuscular Hemoglobin Concent 31.0 G/DL (32.0-36.0) L Red Cell Distribution Width 19.1 % (11.6-14.8) H Platelet Count 102 K/UL (150-450) #L Mean Platelet Volume 7.1 FL (6.5-10.1) Neutrophils (%) (Auto) % (45.0-75.0) Lymphocytes (%) (Auto) % (20.0-45.0) Monocytes (%) (Auto) % (1.0-10.0) Eosinophils (%) (Auto) % (0.0-3.0) Basophils (%) (Auto) % (0.0-2.0) Differential Total Cells Counted 100 Neutrophils % (Manual) 95 % (45-75) H Lymphocytes % (Manual) 3 % (20-45) L Monocytes % (Manual) 2 % (1-10) Eosinophils % (Manual) 0 % (0-3) Basophils % (Manual) 0 % (0-2) Band Neutrophils 0 % (0-8) Nucleated Red Blood Cells 2 /100 WBC Platelet Estimate Decreased L Platelet Morphology Normal Anisocytosis 1+ Ovalocytes 1+ Acanthocytes 1+ Sodium Level 143 MMOL/L (136-145) Potassium Level 4.5 MMOL/L (3.5-5.1) Chloride Level 111 MMOL/L (98-107) H Carbon Dioxide Level 28 MMOL/L (21-32) Anion Gap 4 mmol/L (5-15) L Blood Urea Nitrogen 32 mg/dL (7-18) H Creatinine 1.2 MG/DL (0.55-1.30) Estimat Glomerular Filtration Rate mL/min (>60) Glucose Level 189 MG/DL (74-106) H Calcium Level 7.7 MG/DL (8.5-10.1) L Phosphorus Level 2.1 MG/DL (2.5-4.9) L Magnesium Level 1.7 MG/DL (1.8-2.4) L Total Bilirubin 1.8 MG/DL (0.2-1.0) H Direct Bilirubin 1.3 MG/DL (0.0-0.3) H Aspartate Amino Transf (AST/SGOT) 80 U/L (15-37) H Alanine Aminotransferase (ALT/SGPT) 55 U/L (12-78) Alkaline Phosphatase 156 U/L (46-116) H Total Protein 5.4 G/DL (6.4-8.2) L Albumin 1.7 G/DL (3.4-5.0) L Globulin 3.7 g/dL Albumin/Globulin Ratio 0.5 (1.0-2.7) L Current Medications Medications (Trade) Dose Ordered Sig/Pam Route PRN Reason Start Time Stop Time Status Last Admin Dose Admin Acetaminophen (Tylenol) 650 mg Q4H PRN ORAL Mild Pain/Temp > 100.5 02/19/19 17:15 03/21/19 17:14 Chlorhexidine Gluconate (Dayna-Hex 2%) 1 applic DAILY@2000 TOPIC 02/20/19 20:00 03/22/19 19:59 02/27/19 20:25 Levofloxacin (Levaquin) 250 mg DAILY ORAL 02/27/19 09:00 03/06/19 08:59 02/28/19 08:40 Norepinephrine Bitartrate 16 mg/ Dextrose 500 ml @ 0 mls/hr Q24H IV 02/26/19 17:30 03/28/19 17:29 02/28/19 06:09 Pantoprazole (Protonix) 40 mg Q12HR IVP 02/20/19 21:00 03/21/19 17:59 02/28/19 08:40 Potassium Chloride (K-Dur) 20 meq TWICE A DAY NG 02/25/19 18:00 03/27/19 17:59 02/28/19 08:40 Neville Cunningham MD Feb 28, 2019 09:59
[2019-02-28] MEDS ORDERED: Pantoprazole Inj IVP SCH (10:30)
--- NOTE | 2019-02-28 10:30 | NUR ---
NURSE NOTES: WEANING TERMINATED. PLACED PATIENT BACK ON AC MODE WITH SAME VENT SETTINGS. WILL CONTINUE TO MONITOR.
--- NOTE | 2019-02-28 10:36 | Nephrology Progress Note ---
Assessment/Plan Problem List: (1) Acute respiratory failure (2) Septic shock (3) Renal failure (4) Atrial fibrillation with rapid ventricular response (5) Cardiomyopathy Assessment Renal failure - ? Acute on Chronic, Partly dehydration Septic Shock UTI AT Fib with FVR h/o DM, proteinuria , HypoAlbuminemia Plan dig IV one dose K and Mag supplement as needed pulm support per consultants previously: stop NS intubated On 2 pressors BP remains low Poor prognosis - remains full code for now slow Hydrate 2D echo EjFx 40% antibiotics monitor renal parameters avoid nephrotoxics per orders Subjective ROS Limited/Unobtainable: Yes Objective Objective Last 24 Hour Vital Signs Date Time Temp Pulse Resp B/P (MAP) Pulse Ox O2 Delivery O2 Flow Rate FiO2 02/28/19 10:31 130 30 35 02/28/19 10:05 35 02/28/19 10:00 133 24 108/74 (85) 94 02/28/19 09:30 100 02/28/19 09:30 123 24 35 02/28/19 09:30 131 23 103/38 (59) 96 02/28/19 09:24 117 18 35 02/28/19 09:00 125 18 104/63 (77) 98 02/28/19 08:30 124 17 102/58 (73) 99 02/28/19 08:30 35 02/28/19 08:00 98.4 116 16 113/56 (75) 98 02/28/19 08:00 35 02/28/19 08:00 118 02/28/19 07:30 118 16 104/74 (84) 98 02/28/19 07:11 126 20 35 02/28/19 07:00 120 17 111/72 (85) 98 02/28/19 06:30 122 17 105/67 (80) 99 02/28/19 06:09 108/61 02/28/19 06:00 99/60 02/28/19 06:00 118 18 116/76 (89) 98 02/28/19 05:30 122 18 107/62 (77) 98 02/28/19 05:18 117 16 35 02/28/19 05:00 113/66 02/28/19 05:00 117 17 113/70 (84) 98 02/28/19 04:45 123 17 86/60 (69) 98 02/28/19 04:30 118 17 125/63 (83) 99 02/28/19 04:00 Mechanical Ventilator 02/28/19 04:00 98.6 120 16 116/64 (81) 99 02/28/19 04:00 116 02/28/19 04:00 35 02/28/19 04:00 113/70 02/28/19 03:30 120 17 109/61 (77) 98 02/28/19 03:00 117 16 100/56 (71) 02/28/19 03:00 114/58 02/28/19 02:56 114 16 35 02/28/19 02:30 120 16 109/65 (80) 99 02/28/19 02:00 119 17 112/54 (73) 99 02/28/19 02:00 111/65 02/28/19 01:30 122 16 103/65 (78) 98 02/28/19 01:00 118 16 114/63 (80) 99 02/28/19 01:00 115/65 02/28/19 00:32 120 16 35 02/28/19 00:30 123 16 110/61 (77) 99 02/28/19 00:00 122 02/28/19 00:00 35 02/28/19 00:00 110/63 02/28/19 00:00 98.5 122 16 114/64 (81) 100 02/28/19 00:00 Mechanical Ventilator 02/27/19 23:45 118 16 112/65 (81) 02/27/19 23:30 120 16 118/67 (84) 02/27/19 23:00 110/72 02/27/19 23:00 118 16 118/72 (87) 99 02/27/19 22:46 125 16 35 02/27/19 22:30 122 17 97/54 (68) 100 02/27/19 22:00 127 18 120/66 (84) 100 02/27/19 22:00 115/63 02/27/19 21:30 120 17 115/66 (82) 100 02/27/19 21:20 118 20 35 02/27/19 21:15 121 17 108/59 (75) 99 02/27/19 21:00 119 22 108/67 (81) 99 02/27/19 21:00 108/59 11/19/19 20:30 115 17 108/73 (85) 99 02/27/19 20:00 35 02/27/19 20:00 Mechanical Ventilator 02/27/19 20:00 103/63 02/27/19 20:00 110 02/27/19 20:00 98.5 105 16 103/63 (76) 99 02/27/19 19:30 107 18 91/50 (64) 98 02/27/19 19:12 121 16 35 02/27/19 19:00 108 17 92/55 (67) 99 02/27/19 19:00 94/58 02/27/19 18:30 110 16 102/59 (73) 99 02/27/19 18:00 113 16 102/52 (69) 100 02/27/19 17:30 108 16 97/54 (68) 99 02/27/19 17:23 108 20 35 02/27/19 17:00 109 16 109/53 (71) 100 02/27/19 16:30 102 16 99/58 (72) 100 02/27/19 16:00 98.7 94 16 94/49 (64) 100 02/27/19 16:00 105 02/27/19 16:00 Mechanical Ventilator 02/27/19 16:00 35 02/27/19 15:30 102 7 105/52 (69) 99 02/27/19 15:00 108 16 94/57 (69) 99 02/27/19 14:38 108 16 35 02/27/19 14:30 114 15 96/57 (70) 100 02/27/19 14:00 116 15 110/75 (87) 100 02/27/19 14:00 110/75 02/27/19 13:30 117 26 95/51 (66) 100 02/27/19 13:24 112 17 35 02/27/19 13:00 115 19 85/52 (63) 100 02/27/19 12:30 120 18 95/58 (70) 100 02/27/19 12:00 111 02/27/19 12:00 35 02/27/19 12:00 98.1 113 16 97/69 (78) 100 02/27/19 12:00 Mechanical Ventilator 02/27/19 11:30 117 19 91/68 (76) 99 02/27/19 11:00 115 19 112/62 (79) 100 02/27/19 10:59 111 16 35 Intake and Output 02/27/19 02/28/19 19:00 07:00 Intake Total 940.00 ml 898.75 ml Output Total 920 ml 480 ml Balance 20.00 ml 418.75 ml Free Water 200 ml 150 ml IV Total 120.00 ml 198.75 ml Tube Feeding 550 ml 550 ml Other 70 ml Output Urine Total 420 ml 480 ml Stool Total 500 ml Laboratory Tests 02/28/19 03:20: White Blood Count 18.5H, Red Blood Count 2.67L, Hemoglobin 8.6L, Hematocrit 27.8L, Mean Corpuscular Volume 105H, Mean Corpuscular Hemoglobin 32.4H, Mean Corpuscular Hemoglobin Concent 31.0L, Red Cell Distribution Width 19.1H, Platelet Count 102#L, Mean Platelet Volume 7.1, Neutrophils (%) (Auto) , Lymphocytes (%) (Auto) , Monocytes (%) (Auto) , Eosinophils (%) (Auto) , Basophils (%) (Auto) , Differential Total Cells Counted 100, Neutrophils % ( Manual) 95H, Lymphocytes % (Manual) 3L, Monocytes % (Manual) 2, Eosinophils % ( Manual) 0, Basophils % (Manual) 0, Band Neutrophils 0, Nucleated Red Blood Cells 2, Platelet Estimate DecreasedL, Platelet Morphology Normal, Anisocytosis 1+, Ovalocytes 1+, Acanthocytes 1+, Sodium Level 143, Potassium Level 4.5, Chloride Level 111H, Carbon Dioxide Level 28, Anion Gap 4L, Blood Urea Nitrogen 32H, Creatinine 1.2, Estimat Glomerular Filtration Rate , Glucose Level 189H, Calcium Level 7.7L, Phosphorus Level 2.1L, Magnesium Level 1.7L, Total Bilirubin 1.8H, Direct Bilirubin 1.3H, Aspartate Amino Transf (AST/SGOT) 80H, Alanine Aminotransferase (ALT/SGPT) 55, Alkaline Phosphatase 156H, Total Protein 5.4L, Albumin 1.7L, Globulin 3.7, Albumin/Globulin Ratio 0.5L Height (Feet): 5 Height (Inches): 6.00 Weight (Pounds): 158 General Appearance: no apparent distress EENT: other - vented Cardiovascular: tachycardia Respiratory/Chest: decreased breath sounds Abdomen: soft Jt Louis MD Feb 28, 2019 10:36
[2019-02-28] MEDS ORDERED: Digoxin 0.5mg/2ml Inj IVP SCH (10:45)
[2019-02-28] MEDS ORDERED: Potassium Phosphate 30 MM in NS 275 ML IV ONE (11:30)
--- NOTE | 2019-02-28 12:30 | NUR ---
NURSE NOTES: TURNED AND REPOSITIONED PATIENT. ORAL CARE DONE.
--- NOTE | 2019-02-28 15:00 | NUR ---
*-* INSURANCE *-* ALL CLINICALS AND REVIEWS HAVE BEEN FAXED TO: MARGARITA Clement Ref#[id number] CM: Dung #[phone] ext [phone] fax#[phone]
--- NOTE | 2019-02-28 15:10 | NUR ---
NURSE NOTES: R IJ TLC REMOVED. DRESSING APPLIED. NO SIGNS OF BLEEDING.
--- NOTE | 2019-02-28 15:29 | NUR ---
NURSE NOTES: SEEN AND EXAMINED BY DR VILLELA WITH NEW ORDERS MADE. WILL CONTINUE TO MONITOR. Addendum: 02/28/19 at 1535 by TERI MARIE RN NURSE NOTES: ROUNDS MADE AROUND 1030.
--- NOTE | 2019-02-28 16:17 | Pulmonolgy Critical Care Note ---
Critical Care - Asmt/Plan Assessment/Plan: Pulmonary CCM Progress Note Assessment/Plan ASSESSMENT: acute on chronic encephalopathy, Hepatitis C, dementia, chronic atrial fibrillation, hypertension, diastolic congestive heart failure, septic shock, hypothermia, hypotension, hypoxemia severe PCM, thrombocytopenia, anemia, leukocytosis, acute renal failure tachycardia, remains on Vent support, on pressors PLAN care noted vent management, wean as tolerated when off pressors monitor acid base support as able full code pressors as needed IV antibiotics respiratory care SNF meds supportive care suction as needed monitor for aspiration oxygen therapy as needed try to wean as able close follow up of acid base for now prognosis guarded and currently patient is critical medications/laboratory data/nursing notes/ICU care reviewed in detail note reviewed and edited care discussed with RN and RT ICU time spent 40 minutes Critical Care - Subjective Interval Events: care noted now intubated oxygen needs reviewed ICU care noted ROS Limited/Unobtainable: Yes Condition: critical EKG Rhythm: Sinus Rhythm Critical Care - Objective CXR: CHF ET-Tube: 7.0 ET Position: 22 Last 24 Hour Vital Signs Noted Labs noted Objective: PHYSICAL EXAMINATION: GENERAL: The patient is a chronically ill-appearing female, on VENT NECK: Supple. moist mm HEART: tachy RR.without MRG LUNGS: reduced breath sounds with scattered rhonchi; no wheeze ABDOMEN: Soft, nontender, nondistended. no HSM EXTREMITIES: No clubbing, cyanosis, or edema. NEURO: response to pain Critical Care - Objective Last 24 Hour Vital Signs Date Time Temp Pulse Resp B/P (MAP) Pulse Ox O2 Delivery O2 Flow Rate FiO2 02/28/19 16:00 35 02/28/19 16:00 108/64 02/28/19 15:30 110 16 108/62 (77) 98 02/28/19 15:00 108/59 02/28/19 15:00 111 16 108/59 (75) 98 02/28/19 15:00 107 16 35 02/28/19 14:30 113 17 105/57 (73) 97 02/28/19 14:00 112 18 113/58 (76) 97 02/28/19 14:00 113/58 02/28/19 13:30 109 16 114/55 (74) 97 02/28/19 13:00 107/61 02/28/19 13:00 120 18 107/61 (76) 98 02/28/19 12:40 115 16 35 02/28/19 12:30 114 16 115/59 (77) 98 02/28/19 12:02 116 02/28/19 12:00 35 02/28/19 12:00 98.6 116 17 108/61 (77) 97 02/28/19 12:00 Mechanical Ventilator 02/28/19 12:00 108/61 02/28/19 11:36 114 02/28/19 11:30 125 16 111/73 (86) 98 02/28/19 11:00 103/61 02/28/19 11:00 118 16 90/48 (62) 97 02/28/19 10:31 130 30 35 02/28/19 10:30 122 20 127/65 (85) 96 02/28/19 10:05 35 02/28/19 10:00 110/70 02/28/19 10:00 133 24 108/74 (85) 94 02/28/19 09:30 100 02/28/19 09:30 123 24 35 02/28/19 09:30 131 23 103/38 (59) 96 02/28/19 09:24 117 18 35 02/28/19 09:00 104/63 02/28/19 09:00 125 18 104/63 (77) 98 02/28/19 08:30 124 17 102/58 (73) 99 02/28/19 08:30 35 02/28/19 08:00 98.4 116 16 113/56 (75) 98 02/28/19 08:00 35 02/28/19 08:00 Mechanical Ventilator 02/28/19 08:00 113/56 02/28/19 08:00 118 02/28/19 07:30 118 16 104/74 (84) 98 02/28/19 07:11 126 20 35 02/28/19 07:00 120 17 111/72 (85) 98 02/28/19 07:00 111/72 02/28/19 06:30 122 17 105/67 (80) 99 02/28/19 06:09 108/61 02/28/19 06:00 99/60 02/28/19 06:00 118 18 116/76 (89) 98 02/28/19 05:30 122 18 107/62 (77) 98 02/28/19 05:18 117 16 35 02/28/19 05:00 113/66 02/28/19 05:00 117 17 113/70 (84) 98 02/28/19 04:45 123 17 86/60 (69) 98 02/28/19 04:30 118 17 125/63 (83) 99 02/28/19 04:00 Mechanical Ventilator 02/28/19 04:00 98.6 120 16 116/64 (81) 99 02/28/19 04:00 116 02/28/19 04:00 35 02/28/19 04:00 113/70 02/28/19 03:30 120 17 109/61 (77) 98 02/28/19 03:00 117 16 100/56 (71) 02/28/19 03:00 114/58 02/28/19 02:56 114 16 35 02/28/19 02:30 120 16 109/65 (80) 99 02/28/19 02:00 119 17 112/54 (73) 99 02/28/19 02:00 111/65 02/28/19 01:30 122 16 103/65 (78) 98 02/28/19 01:00 118 16 114/63 (80) 99 02/28/19 01:00 115/65 02/28/19 00:32 120 16 35 02/28/19 00:30 123 16 110/61 (77) 99 02/28/19 00:00 122 02/28/19 00:00 35 02/28/19 00:00 110/63 02/28/19 00:00 98.5 122 16 114/64 (81) 100 02/28/19 00:00 Mechanical Ventilator 02/27/19 23:45 118 16 112/65 (81) 02/27/19 23:30 120 16 118/67 (84) 02/27/19 23:00 110/72 02/27/19 23:00 118 16 118/72 (87) 99 02/27/19 22:46 125 16 35 02/27/19 22:30 122 17 97/54 (68) 100 02/27/19 22:00 127 18 120/66 (84) 100 02/27/19 22:00 115/63 02/27/19 21:30 120 17 115/66 (82) 100 11/19/19 21:20 118 20 35 02/27/19 21:15 121 17 108/59 (75) 99 02/27/19 21:00 119 22 108/67 (81) 99 02/27/19 21:00 108/59 02/27/19 20:30 115 17 108/73 (85) 99 02/27/19 20:00 35 02/27/19 20:00 Mechanical Ventilator 02/27/19 20:00 103/63 02/27/19 20:00 110 02/27/19 20:00 98.5 105 16 103/63 (76) 99 02/27/19 19:30 107 18 91/50 (64) 98 02/27/19 19:12 121 16 35 02/27/19 19:00 108 17 92/55 (67) 99 02/27/19 19:00 94/58 02/27/19 18:30 110 16 102/59 (73) 99 02/27/19 18:00 113 16 102/52 (69) 100 02/27/19 17:30 108 16 97/54 (68) 99 02/27/19 17:23 108 20 35 02/27/19 17:00 109 16 109/53 (71) 100 02/27/19 16:30 102 16 99/58 (72) 100 Accucheck: 72 Critical Care - Subjective ROS Limited/Unobtainable: No FI02: 35 Vent Support Breath Rate: 16 Vent Support Mode: AC Vent Tidal Volume: 500 Sputum Amount: Small PEEP: 5.0 PIP: 33 Tube Feeding Amount: 50 I&O: Intake and Output 02/27/19 02/28/19 19:00 07:00 Intake Total 940.00 ml 966.75 ml Output Total 920 ml 510 ml Balance 20.00 ml 456.75 ml Free Water 200 ml 150 ml IV Total 120.00 ml 216.75 ml Tube Feeding 550 ml 600 ml Other 70 ml Output Urine Total 420 ml 510 ml Stool Total 500 ml ET-Tube: 7.0 ET Position: 22 Jimmie Puckett MD Feb 28, 2019 16:17
--- NOTE | 2019-02-28 17:30 | NUR ---
NURSE NOTES: PATIENT KEPT CLEAN AND DRY. WILL CONTINUE TO MONITOR.
--- NOTE | 2019-02-28 17:34 | Surgery Progress Note ---
Surgery Progress Note Subjective Additional Comments increasing pressor requirements levo at [facility] today exam stable awake eyes open on vent support prognosis guarded labs noted Objective Last 24 Hour Vital Signs Date Time Temp Pulse Resp B/P (MAP) Pulse Ox O2 Delivery O2 Flow Rate FiO2 02/28/19 17:29 102 18 119/65 (83) 99 02/28/19 17:00 100 16 106/64 (78) 100 02/28/19 16:32 106 16 35 02/28/19 16:30 98.7 111 18 104/66 (79) 99 02/28/19 16:00 109 18 111/56 (74) 98 02/28/19 16:00 35 02/28/19 16:00 107 02/28/19 16:00 108/64 02/28/19 15:30 110 16 108/62 (77) 98 02/28/19 15:00 108/59 02/28/19 15:00 111 16 108/59 (75) 98 02/28/19 15:00 107 16 35 02/28/19 14:30 113 17 105/57 (73) 97 02/28/19 14:00 112 18 113/58 (76) 97 02/28/19 14:00 113/58 02/28/19 13:30 109 16 114/55 (74) 97 02/28/19 13:00 107/61 02/28/19 13:00 120 18 107/61 (76) 98 02/28/19 12:40 115 16 35 02/28/19 12:30 114 16 115/59 (77) 98 02/28/19 12:02 116 02/28/19 12:00 35 02/28/19 12:00 98.6 116 17 108/61 (77) 97 02/28/19 12:00 Mechanical Ventilator 02/28/19 12:00 108/61 02/28/19 11:36 114 02/28/19 11:30 125 16 111/73 (86) 98 02/28/19 11:00 103/61 02/28/19 11:00 118 16 90/48 (62) 97 02/28/19 10:31 130 30 35 02/28/19 10:30 122 20 127/65 (85) 96 02/28/19 10:05 35 02/28/19 10:00 110/70 02/28/19 10:00 133 24 108/74 (85) 94 02/28/19 09:30 100 02/28/19 09:30 123 24 35 02/28/19 09:30 131 23 103/38 (59) 96 02/28/19 09:24 117 18 35 02/28/19 09:00 104/63 02/28/19 09:00 125 18 104/63 (77) 98 02/28/19 08:30 124 17 102/58 (73) 99 02/28/19 08:30 35 02/28/19 08:00 98.4 116 16 113/56 (75) 98 02/28/19 08:00 35 02/28/19 08:00 Mechanical Ventilator 02/28/19 08:00 113/56 02/28/19 08:00 118 02/28/19 07:30 118 16 104/74 (84) 98 02/28/19 07:11 126 20 35 02/28/19 07:00 120 17 111/72 (85) 98 02/28/19 07:00 111/72 02/28/19 06:30 122 17 105/67 (80) 99 02/28/19 06:09 108/61 02/28/19 06:00 99/60 02/28/19 06:00 118 18 116/76 (89) 98 02/28/19 05:30 122 18 107/62 (77) 98 02/28/19 05:18 117 16 35 02/28/19 05:00 113/66 02/28/19 05:00 117 17 113/70 (84) 98 02/28/19 04:45 123 17 86/60 (69) 98 02/28/19 04:30 118 17 125/63 (83) 99 02/28/19 04:00 Mechanical Ventilator 02/28/19 04:00 98.6 120 16 116/64 (81) 99 02/28/19 04:00 116 02/28/19 04:00 35 02/28/19 04:00 113/70 02/28/19 03:30 120 17 109/61 (77) 98 02/28/19 03:00 117 16 100/56 (71) 02/28/19 03:00 114/58 02/28/19 02:56 114 16 35 02/28/19 02:30 120 16 109/65 (80) 99 02/28/19 02:00 119 17 112/54 (73) 99 02/28/19 02:00 111/65 02/28/19 01:30 122 16 103/65 (78) 98 02/28/19 01:00 118 16 114/63 (80) 99 02/28/19 01:00 115/65 02/28/19 00:32 120 16 35 02/28/19 00:30 123 16 110/61 (77) 99 02/28/19 00:00 122 02/28/19 00:00 35 02/28/19 00:00 110/63 02/28/19 00:00 98.5 122 16 114/64 (81) 100 02/28/19 00:00 Mechanical Ventilator 02/27/19 23:45 118 16 112/65 (81) 02/27/19 23:30 120 16 118/67 (84) 02/27/19 23:00 110/72 02/27/19 23:00 118 16 118/72 (87) 99 02/27/19 22:46 125 16 35 02/27/19 22:30 122 17 97/54 (68) 100 02/27/19 22:00 127 18 120/66 (84) 100 02/27/19 22:00 115/63 02/27/19 21:30 120 17 115/66 (82) 100 02/27/19 21:20 118 20 35 02/27/19 21:15 121 17 108/59 (75) 99 02/27/19 21:00 119 22 108/67 (81) 99 02/27/19 21:00 108/59 02/27/19 20:30 115 17 108/73 (85) 99 02/27/19 20:00 35 02/27/19 20:00 Mechanical Ventilator 02/27/19 20:00 103/63 02/27/19 20:00 110 02/27/19 20:00 98.5 105 16 103/63 (76) 99 02/27/19 19:30 107 18 91/50 (64) 98 02/27/19 19:12 121 16 35 02/27/19 19:00 108 17 92/55 (67) 99 02/27/19 19:00 94/58 02/27/19 18:30 110 16 102/59 (73) 99 02/27/19 18:00 113 16 102/52 (69) 100 I&O Intake and Output 02/27/19 02/28/19 19:00 07:00 Intake Total 940.00 ml 966.75 ml Output Total 920 ml 510 ml Balance 20.00 ml 456.75 ml Free Water 200 ml 150 ml IV Total 120.00 ml 216.75 ml Tube Feeding 550 ml 600 ml Other 70 ml Output Urine Total 420 ml 510 ml Stool Total 500 ml Dressing: saturated Wound: other Drains: other Cardiovascular: RSR Respiratory: decreased breath sounds Abdomen: soft, non-tender, non-distended Extremities: cyanosis, no tenderness, other Laboratory Tests Test 02/28/19 03:20 White Blood Count 18.5 K/UL (4.8-10.8) H Red Blood Count 2.67 M/UL (4.20-5.40) L Hemoglobin 8.6 G/DL (12.0-16.0) L Hematocrit 27.8 % (37.0-47.0) L Mean Corpuscular Volume 105 FL (80-99) H Mean Corpuscular Hemoglobin 32.4 PG (27.0-31.0) H Mean Corpuscular Hemoglobin Concent 31.0 G/DL (32.0-36.0) L Red Cell Distribution Width 19.1 % (11.6-14.8) H Platelet Count 102 K/UL (150-450) #L Mean Platelet Volume 7.1 FL (6.5-10.1) Neutrophils (%) (Auto) % (45.0-75.0) Lymphocytes (%) (Auto) % (20.0-45.0) Monocytes (%) (Auto) % (1.0-10.0) Eosinophils (%) (Auto) % (0.0-3.0) Basophils (%) (Auto) % (0.0-2.0) Differential Total Cells Counted 100 Neutrophils % (Manual) 95 % (45-75) H Lymphocytes % (Manual) 3 % (20-45) L Monocytes % (Manual) 2 % (1-10) Eosinophils % (Manual) 0 % (0-3) Basophils % (Manual) 0 % (0-2) Band Neutrophils 0 % (0-8) Nucleated Red Blood Cells 2 /100 WBC Platelet Estimate Decreased L Platelet Morphology Normal Anisocytosis 1+ Ovalocytes 1+ Acanthocytes 1+ Sodium Level 143 MMOL/L (136-145) Potassium Level 4.5 MMOL/L (3.5-5.1) Chloride Level 111 MMOL/L (98-107) H Carbon Dioxide Level 28 MMOL/L (21-32) Anion Gap 4 mmol/L (5-15) L Blood Urea Nitrogen 32 mg/dL (7-18) H Creatinine 1.2 MG/DL (0.55-1.30) Estimat Glomerular Filtration Rate mL/min (>60) Glucose Level 189 MG/DL (74-106) H Calcium Level 7.7 MG/DL (8.5-10.1) L Phosphorus Level 2.1 MG/DL (2.5-4.9) L Magnesium Level 1.7 MG/DL (1.8-2.4) L Total Bilirubin 1.8 MG/DL (0.2-1.0) H Direct Bilirubin 1.3 MG/DL (0.0-0.3) H Aspartate Amino Transf (AST/SGOT) 80 U/L (15-37) H Alanine Aminotransferase (ALT/SGPT) 55 U/L (12-78) Alkaline Phosphatase 156 U/L (46-116) H Total Protein 5.4 G/DL (6.4-8.2) L Albumin 1.7 G/DL (3.4-5.0) L Globulin 3.7 g/dL Albumin/Globulin Ratio 0.5 (1.0-2.7) L Plan Problems: (1) Septic shock Assessment & Plan: 78-year-old female in septic shock in the intensive care unit on pressors. Leukocytosis, anemia, abnormal labs. Tachycardic. On respiratory support. On examination patient identified to have slowed capillary refill in the distal extremities. Patient furthermore identified to have a weeping wound in the right great toe. Patient is currently very ill and septic and requiring pressors. Unfortunately given her medical condition comorbidities and history there is potential for distal vasoconstriction and potentially even necrosis of the distal aspects but further life-saving measures pressors currently required and necessary and indicated. wound re-evaluated. necrotic epidermal tissue sloth off but underlying tissues with backbleeding. motor noted spont in foot and toes We will continue to monitor extremities and evaluate them. Will wean off pressors as possible. Lactic acidosis improving. Continue IV antibiotics Wean pressors prognosis guarded labs worsening Appreciate ICU care and management We will follow with recommendations (2) Abdominal pain Assessment & Plan: Chronic liver disease/cirrhosis with signs of portal hypertension including moderate ascites and hepatofugal flow in the portal vein. Gallbladder wall edema nonspecific Bilateral pleural effusions. Medical renal disease Findings: There is extensive artifact from the patient's arms limiting evaluation. Oral contrast was given. Gastrostomy tube is noted in good position. There are small bilateral pleural effusions present with adjacent ill-defined parenchymal density either atelectasis or pneumonia. Correlate clinically. Small pericardial effusion is present and there is generalized cardiomegaly present. Hiatal hernia noted. Aorta and coronary artery calcification present. Mild ascites is demonstrated. No compelling evidence for bowel obstruction. There is extensive diverticulosis involving the colon without obvious diverticulitis. Generalized anasarca noted. The appendix is not seen. The kidneys show no obvious hydronephrosis. The right kidney appears atrophic. There is a suggestion of cysts within the right kidney but this is grossly limited in terms of visualization. The gallbladder is demonstrated. The rectum appears low in location suggestive of prolapse and with a moderate degree of fecal retention. IMPRESSION: Limited evaluation due to artifact. Mild to moderate ascites Trace bilateral pleural effusions. Basilar atelectasis and/or infiltrate. Trace pericardial effusion Generalized cardiomegaly. Atherosclerotic vascular disease Extensive diverticulosis of the colon. No definite diverticulitis. Anasarca Gross catheter Query rectal prolapse (3) Severe sepsis Tristan Heller Feb 28, 2019 17:34
--- NOTE | 2019-02-28 19:54 | NUR ---
HAND-OFF: Report given to Catalina Diaz RN.
--- NOTE | 2019-02-28 19:57 | NUR ---
RESPIRATORY NOTE: Received pt on AC 16, 500VT, 35%, PEEP +5. Pt intubated w/ ETT 7.0 @ 22cm lipline, secured by anchorfast. Pt is alert/awake, follows commands. B/S lasha. rhonchi, sxn small amounts of thick, fraser-yellow secretions. Both hands on soft restraints to prevent pt from self-extubation. Vent plugged into red outlet, ambubag at bedside. Pt in no apparent distress at this time. Will continue to monitor pt.
--- NOTE | 2019-02-28 20:00 | NUR ---
NURSE NOTES received pt report fr grimes rn orally intubated -vent o2 sat 100 o/0 levo drip titrated to 8 mcg /min bp 112 /62 dressing dry and intact reposition and suction urinary output good orally care done
[2019-02-28] MEDS: Dyna-Hex 2% Top Sol 2oz TOPIC SCH (20:35)
--- NOTE | 2019-02-28 22:00 | NUR ---
NURSE NOTES: no acute resp distress note
--- NOTE | 2019-02-28 22:43 | General Progress Note ---
Assessment/Plan Status: stable, not improved, deteriorating Assessment/Plan: Assessment - GT dependent - Hepatitis C (+) - Abnormal LFT, ascites, thrombocytopenia - suspect chronic liver disease - Lactic acidosis - Resp failure - OBS / Delirium - Azotemia - Diarrhea - r/o C Diff - poor PX Recommendations - check C diff - supportive care - Abx per ID - agree with DNR Subjective Allergies: Coded Allergies: No Known Allergies (Unverified , 02/19/19) Subjective Above noted doing poorly intubated unresponsive platelets lower Objective Last 24 Hour Vital Signs Date Time Temp Pulse Resp B/P (MAP) Pulse Ox O2 Delivery O2 Flow Rate FiO2 02/28/19 22:39 105 16 35 02/28/19 20:56 107 16 35 02/28/19 19:30 107 18 112/64 (80) 99 02/28/19 19:00 98 16 117/57 (77) 02/28/19 19:00 110/62 02/28/19 18:55 102 16 35 02/28/19 18:30 90 16 119/64 (82) 99 02/28/19 18:00 96 16 112/58 (76) 100 02/28/19 18:00 119/64 02/28/19 17:29 102 18 119/65 (83) 99 02/28/19 17:00 100 16 106/64 (78) 100 02/28/19 17:00 106/64 02/28/19 16:32 106 16 35 02/28/19 16:30 98.7 111 18 104/66 (79) 99 02/28/19 16:00 109 18 111/56 (74) 98 02/28/19 16:00 35 02/28/19 16:00 107 02/28/19 16:00 Mechanical Ventilator 02/28/19 16:00 108/64 02/28/19 15:30 110 16 108/62 (77) 98 02/28/19 15:00 108/59 02/28/19 15:00 111 16 108/59 (75) 98 02/28/19 15:00 107 16 35 02/28/19 14:30 113 17 105/57 (73) 97 02/28/19 14:00 112 18 113/58 (76) 97 02/28/19 14:00 113/58 02/28/19 13:30 109 16 114/55 (74) 97 02/28/19 13:00 107/61 02/28/19 13:00 120 18 107/61 (76) 98 02/28/19 12:40 115 16 35 02/28/19 12:30 114 16 115/59 (77) 98 02/28/19 12:02 116 02/28/19 12:00 35 02/28/19 12:00 98.6 116 17 108/61 (77) 97 02/28/19 12:00 Mechanical Ventilator 02/28/19 12:00 108/61 02/28/19 11:36 114 02/28/19 11:30 125 16 111/73 (86) 98 02/28/19 11:00 103/61 02/28/19 11:00 118 16 90/48 (62) 97 02/28/19 10:31 130 30 35 02/28/19 10:30 122 20 127/65 (85) 96 02/28/19 10:05 35 02/28/19 10:00 110/70 02/28/19 10:00 133 24 108/74 (85) 94 02/28/19 09:30 100 02/28/19 09:30 123 24 35 02/28/19 09:30 131 23 103/38 (59) 96 02/28/19 09:24 117 18 35 02/28/19 09:00 104/63 02/28/19 09:00 125 18 104/63 (77) 98 02/28/19 08:30 124 17 102/58 (73) 99 02/28/19 08:30 35 02/28/19 08:00 98.4 116 16 113/56 (75) 98 02/28/19 08:00 35 02/28/19 08:00 Mechanical Ventilator 02/28/19 08:00 113/56 02/28/19 08:00 118 02/28/19 07:30 118 16 104/74 (84) 98 02/28/19 07:11 126 20 35 02/28/19 07:00 120 17 111/72 (85) 98 02/28/19 07:00 111/72 02/28/19 06:30 122 17 105/67 (80) 99 02/28/19 06:09 108/61 02/28/19 06:00 99/60 02/28/19 06:00 118 18 116/76 (89) 98 02/28/19 05:30 122 18 107/62 (77) 98 02/28/19 05:18 117 16 35 02/28/19 05:00 113/66 02/28/19 05:00 117 17 113/70 (84) 98 02/28/19 04:45 123 17 86/60 (69) 98 02/28/19 04:30 118 17 125/63 (83) 99 02/28/19 04:00 Mechanical Ventilator 02/28/19 04:00 98.6 120 16 116/64 (81) 99 02/28/19 04:00 116 02/28/19 04:00 35 02/28/19 04:00 113/70 02/28/19 03:30 120 17 109/61 (77) 98 02/28/19 03:00 117 16 100/56 (71) 02/28/19 03:00 114/58 02/28/19 02:56 114 16 35 02/28/19 02:30 120 16 109/65 (80) 99 02/28/19 02:00 119 17 112/54 (73) 99 02/28/19 02:00 111/65 02/28/19 01:30 122 16 103/65 (78) 98 02/28/19 01:00 118 16 114/63 (80) 99 02/28/19 01:00 115/65 02/28/19 00:32 120 16 35 02/28/19 00:30 123 16 110/61 (77) 99 02/28/19 00:00 122 02/28/19 00:00 35 02/28/19 00:00 110/63 02/28/19 00:00 98.5 122 16 114/64 (81) 100 02/28/19 00:00 Mechanical Ventilator 02/27/19 23:45 118 16 112/65 (81) 02/27/19 23:30 120 16 118/67 (84) 02/27/19 23:00 110/72 02/27/19 23:00 118 16 118/72 (87) 99 02/27/19 22:46 125 16 35 Intake and Output 02/27/19 02/28/19 18:59 06:59 Intake Total 986.25 ml 910.00 ml Output Total 950 ml 480 ml Balance 36.25 ml 430.00 ml Free Water 200 ml 150 ml IV Total 116.25 ml 210.00 ml Tube Feeding 600 ml 550 ml Other 70 ml Output Urine Total 450 ml 480 ml Stool Total 500 ml Laboratory Tests 02/28/19 03:20: White Blood Count 18.5H, Red Blood Count 2.67L, Hemoglobin 8.6L, Hematocrit 27.8L, Mean Corpuscular Volume 105H, Mean Corpuscular Hemoglobin 32.4H, Mean Corpuscular Hemoglobin Concent 31.0L, Red Cell Distribution Width 19.1H, Platelet Count 102#L, Mean Platelet Volume 7.1, Neutrophils (%) (Auto) , Lymphocytes (%) (Auto) , Monocytes (%) (Auto) , Eosinophils (%) (Auto) , Basophils (%) (Auto) , Differential Total Cells Counted 100, Neutrophils % ( Manual) 95H, Lymphocytes % (Manual) 3L, Monocytes % (Manual) 2, Eosinophils % ( Manual) 0, Basophils % (Manual) 0, Band Neutrophils 0, Nucleated Red Blood Cells 2, Platelet Estimate DecreasedL, Platelet Morphology Normal, Anisocytosis 1+, Ovalocytes 1+, Acanthocytes 1+, Sodium Level 143, Potassium Level 4.5, Chloride Level 111H, Carbon Dioxide Level 28, Anion Gap 4L, Blood Urea Nitrogen 32H, Creatinine 1.2, Estimat Glomerular Filtration Rate , Glucose Level 189H, Calcium Level 7.7L, Phosphorus Level 2.1L, Magnesium Level 1.7L, Total Bilirubin 1.8H, Direct Bilirubin 1.3H, Aspartate Amino Transf (AST/SGOT) 80H, Alanine Aminotransferase (ALT/SGPT) 55, Alkaline Phosphatase 156H, Total Protein 5.4L, Albumin 1.7L, Globulin 3.7, Albumin/Globulin Ratio 0.5L Height (Feet): 5 Height (Inches): 6.00 Weight (Pounds): 158 Objective WDWN NCAT Supple Coarse ronchi RR abd soft ND NT, (+) GT obtunded César Saldana MD Feb 28, 2019 22:43
--- NOTE | 2019-02-28 23:00 | General Progress Note ---
Assessment/Plan Status: stable, not improved, deteriorating Assessment/Plan: Assessment - GT dependent - Hepatitis C (+) - Abnormal LFT, ascites, thrombocytopenia - suspect chronic liver disease - Lactic acidosis - Resp failure - OBS / Delirium - Azotemia - Diarrhea - r/o C Diff - poor PX Recommendations - supportive care - Abx per ID - agree with DNR Subjective Allergies: Coded Allergies: No Known Allergies (Unverified , 02/19/19) Subjective Above noted doing poorly intubated unresponsive Objective Last 24 Hour Vital Signs Date Time Temp Pulse Resp B/P (MAP) Pulse Ox O2 Delivery O2 Flow Rate FiO2 02/28/19 22:39 105 16 35 02/28/19 22:30 96 16 105/58 (74) 99 02/28/19 22:15 100 16 103/55 (71) 99 02/28/19 22:00 102 16 106/59 (75) 99 02/28/19 21:45 102 18 106/62 (77) 99 02/28/19 21:30 103 16 104/60 (75) 99 02/28/19 21:15 100 16 101/54 (70) 99 02/28/19 21:00 103 16 105/56 (72) 100 02/28/19 20:56 107 16 35 02/28/19 20:45 113 21 111/68 (82) 99 02/28/19 20:30 105 16 111/63 (79) 99 02/28/19 20:15 105 15 102/69 (80) 99 02/28/19 20:00 35 02/28/19 20:00 104 02/28/19 20:00 Mechanical Ventilator 02/28/19 20:00 107 16 103/64 (77) 99 02/28/19 19:45 105 16 113/51 (71) 99 02/28/19 19:30 107 18 112/64 (80) 99 02/28/19 19:00 98 16 117/57 (77) 02/28/19 19:00 110/62 02/28/19 18:55 102 16 35 02/28/19 18:30 90 16 119/64 (82) 99 02/28/19 18:00 96 16 112/58 (76) 100 02/28/19 18:00 119/64 02/28/19 17:29 102 18 119/65 (83) 99 02/28/19 17:00 100 16 106/64 (78) 100 02/28/19 17:00 106/64 02/28/19 16:32 106 16 35 02/28/19 16:30 98.7 111 18 104/66 (79) 99 02/28/19 16:00 109 18 111/56 (74) 98 02/28/19 16:00 35 02/28/19 16:00 107 02/28/19 16:00 Mechanical Ventilator 02/28/19 16:00 108/64 02/28/19 15:30 110 16 108/62 (77) 98 02/28/19 15:00 108/59 02/28/19 15:00 111 16 108/59 (75) 98 02/28/19 15:00 107 16 35 02/28/19 14:30 113 17 105/57 (73) 97 02/28/19 14:00 112 18 113/58 (76) 97 02/28/19 14:00 113/58 02/28/19 13:30 109 16 114/55 (74) 97 02/28/19 13:00 107/61 02/28/19 13:00 120 18 107/61 (76) 98 02/28/19 12:40 115 16 35 02/28/19 12:30 114 16 115/59 (77) 98 02/28/19 12:02 116 02/28/19 12:00 35 02/28/19 12:00 98.6 116 17 108/61 (77) 97 02/28/19 12:00 Mechanical Ventilator 02/28/19 12:00 108/61 02/28/19 11:36 114 02/28/19 11:30 125 16 111/73 (86) 98 02/28/19 11:00 103/61 02/28/19 11:00 118 16 90/48 (62) 97 02/28/19 10:31 130 30 35 02/28/19 10:30 122 20 127/65 (85) 96 02/28/19 10:05 35 02/28/19 10:00 110/70 02/28/19 10:00 133 24 108/74 (85) 94 02/28/19 09:30 100 02/28/19 09:30 123 24 35 02/28/19 09:30 131 23 103/38 (59) 96 11/20/19 09:24 117 18 35 02/28/19 09:00 104/63 02/28/19 09:00 125 18 104/63 (77) 98 02/28/19 08:30 124 17 102/58 (73) 99 02/28/19 08:30 35 02/28/19 08:00 98.4 116 16 113/56 (75) 98 02/28/19 08:00 35 02/28/19 08:00 Mechanical Ventilator 02/28/19 08:00 113/56 02/28/19 08:00 118 02/28/19 07:30 118 16 104/74 (84) 98 02/28/19 07:11 126 20 35 02/28/19 07:00 120 17 111/72 (85) 98 02/28/19 07:00 111/72 02/28/19 06:30 122 17 105/67 (80) 99 02/28/19 06:09 108/61 02/28/19 06:00 99/60 02/28/19 06:00 118 18 116/76 (89) 98 02/28/19 05:30 122 18 107/62 (77) 98 02/28/19 05:18 117 16 35 02/28/19 05:00 113/66 02/28/19 05:00 117 17 113/70 (84) 98 02/28/19 04:45 123 17 86/60 (69) 98 02/28/19 04:30 118 17 125/63 (83) 99 02/28/19 04:00 Mechanical Ventilator 02/28/19 04:00 98.6 120 16 116/64 (81) 99 02/28/19 04:00 116 02/28/19 04:00 35 02/28/19 04:00 113/70 02/28/19 03:30 120 17 109/61 (77) 98 02/28/19 03:00 117 16 100/56 (71) 02/28/19 03:00 114/58 02/28/19 02:56 114 16 35 02/28/19 02:30 120 16 109/65 (80) 99 02/28/19 02:00 119 17 112/54 (73) 99 02/28/19 02:00 111/65 02/28/19 01:30 122 16 103/65 (78) 98 02/28/19 01:00 118 16 114/63 (80) 99 02/28/19 01:00 115/65 02/28/19 00:32 120 16 35 02/28/19 00:30 123 16 110/61 (77) 99 02/28/19 00:00 122 02/28/19 00:00 35 02/28/19 00:00 110/63 02/28/19 00:00 98.5 122 16 114/64 (81) 100 02/28/19 00:00 Mechanical Ventilator 02/27/19 23:45 118 16 112/65 (81) 02/27/19 23:30 120 16 118/67 (84) 02/27/19 23:00 110/72 02/27/19 23:00 118 16 118/72 (87) 99 Intake and Output 02/27/19 02/28/19 18:59 06:59 Intake Total 986.25 ml 910.00 ml Output Total 950 ml 480 ml Balance 36.25 ml 430.00 ml Free Water 200 ml 150 ml IV Total 116.25 ml 210.00 ml Tube Feeding 600 ml 550 ml Other 70 ml Output Urine Total 450 ml 480 ml Stool Total 500 ml Laboratory Tests 02/28/19 03:20: White Blood Count 18.5H, Red Blood Count 2.67L, Hemoglobin 8.6L, Hematocrit 27.8L, Mean Corpuscular Volume 105H, Mean Corpuscular Hemoglobin 32.4H, Mean Corpuscular Hemoglobin Concent 31.0L, Red Cell Distribution Width 19.1H, Platelet Count 102#L, Mean Platelet Volume 7.1, Neutrophils (%) (Auto) , Lymphocytes (%) (Auto) , Monocytes (%) (Auto) , Eosinophils (%) (Auto) , Basophils (%) (Auto) , Differential Total Cells Counted 100, Neutrophils % ( Manual) 95H, Lymphocytes % (Manual) 3L, Monocytes % (Manual) 2, Eosinophils % ( Manual) 0, Basophils % (Manual) 0, Band Neutrophils 0, Nucleated Red Blood Cells 2, Platelet Estimate DecreasedL, Platelet Morphology Normal, Anisocytosis 1+, Ovalocytes 1+, Acanthocytes 1+, Sodium Level 143, Potassium Level 4.5, Chloride Level 111H, Carbon Dioxide Level 28, Anion Gap 4L, Blood Urea Nitrogen 32H, Creatinine 1.2, Estimat Glomerular Filtration Rate , Glucose Level 189H, Calcium Level 7.7L, Phosphorus Level 2.1L, Magnesium Level 1.7L, Total Bilirubin 1.8H, Direct Bilirubin 1.3H, Aspartate Amino Transf (AST/SGOT) 80H, Alanine Aminotransferase (ALT/SGPT) 55, Alkaline Phosphatase 156H, Total Protein 5.4L, Albumin 1.7L, Globulin 3.7, Albumin/Globulin Ratio 0.5L Height (Feet): 5 Height (Inches): 6.00 Weight (Pounds): 158 Objective WDWN NCAT Supple Coarse ronchi RR abd soft ND NT, (+) GT obtunded César Saldana MD Feb 28, 2019 23:00
[2019-03-01] VITALS (61 sets, daily range): BP systolic 87–132; BP diastolic 46–90
--- NOTE | 2019-03-01 | NUR ---
NURSE NOTES: reposition and suction no acute resp distress noted
--- NOTE | 2019-03-01 02:00 | NUR ---
NURSE NOTES: received report fr grimes rn pt awake follows simple command on lasha soft wrest restraint non complaint oally intubated with o2 sat 100 0/0 tolerating tube feeding no residual reposition
--- NOTE | 2019-03-01 02:00 | NUR ---
NURSE NOTES: levo drip titrate 6 mcg /min bp 118/64
--- NOTE | 2019-03-01 03:30 | Progress Note ---
DATE: 02/28/2019 CARDIOLOGY PROGRESS NOTE SUBJECTIVE: The patient remains in the intensive care unit. Condition remains critical with guarded prognosis. She remains intubated and requiring some pressor support in addition to mechanical ventilation. OBJECTIVE: VITAL SIGNS: Blood pressure 86/60 to 113/70, heart rate 117 to 123, respiratory rate 18, and afebrile. Monitored rhythm, sinus tachycardia. LUNGS: Bilateral rhonchi. Endotracheal tube in place. HEART: Irregularly irregular rhythm. Normal S1, S2. ABDOMEN: Soft. Moderate ascites. EXTREMITIES: 2+ dependent edema. LABORATORY DATA: White count 18, hemoglobin 8.6. Potassium 4.5, bicarb 28, BUN 32, creatinine 1.2. Magnesium 1.7. Albumin 1.7. IMPRESSION: 1. Respiratory failure. 2. Sepsis with shock. 3. Hypomagnesemia. 4. Prerenal azotemia. 5. Dysphagia with G-tube. 6. 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 7. Lactic acidosis, resolved. 8. Cirrhosis with ascites. PLAN: 1. Taper pressors. 2. Weaning efforts. 3. Cautious hydration. 4. Antimicrobials. 5. Respiratory hygiene and anti-failure therapy until off pressors with stabilized blood pressure parameters. Jimmie Mason M.D. DR: JOHN JOB#: [id number] CC: CHRISTINE
--- NOTE | 2019-03-01 04:00 | NUR ---
NURSE NOTES: complete bed bath orally care done central cath dressing change reposition and suction
[2019-03-01 05:02] LABS: HEMATOCRIT 26.2 % (37.0-47.0); HEMOGLOBIN 8.3 G/DL (12.0-16.0); MEAN CORPUSCULAR VOLUME 104 FL (80-99); PLATELET COUNT 99 K/UL (150-450); RED BLOOD COUNT 2.52 M/UL (4.20-5.40); RED CELL DISTRIBUTION WIDTH 18.7 % (11.6-14.8); WHITE BLOOD COUNT 16.8 K/UL (4.8-10.8)
[2019-03-01 05:36] LABS: ALANINE AMINOTRANSFERASE 63 U/L (12-78); ALBUMIN 1.6 G/DL (3.4-5.0); ALBUMIN/GLOBULIN RATIO 0.4 (1.0-2.7); ALKALINE PHOSPHATASE 181 U/L (46-116); ANION GAP 4 mmol/L (5-15); ASPARTATE AMINO TRANSFERASE 107 U/L (15-37); BILIRUBIN,TOTAL 1.8 MG/DL (0.2-1.0); BLOOD UREA NITROGEN 30 mg/dL (7-18); CALCIUM 7.6 MG/DL (8.5-10.1); CARBON DIOXIDE 26 MMOL/L (21-32); CHLORIDE 112 MMOL/L (98-107); CREATININE 1.1 MG/DL (0.55-1.30); POTASSIUM 5.2 MMOL/L (3.5-5.1); SODIUM 142 MMOL/L (136-145)
--- NOTE | 2019-03-01 06:00 | NUR ---
NURSE NOTES: REPOSITION AND SUCTION LEVO DRIP AT 6MCG/MIN
[2019-03-01 06:24] LABS: BILIRUBIN,DIRECT 1.4 MG/DL (0.0-0.3)
--- NOTE | 2019-03-01 07:25 | NUR ---
HAND-OFF: Report given to [].
--- NOTE | 2019-03-01 07:26 | NUR ---
NURSE NOTES: RECEIVED PATIENT FROM Catalina SOL RN. PATIENT IS LYING IN BED, AWAKE. HOOKED TO COILER. ORALLY INTUBATED, SIZE 7 AT 22CM LIP LINE. VENT SETTINGS OF AC 16, VT 500, FiO2 35%, PEEP 5. NO SIGNS OF DISTRESS OF THE MOMENT. GT NOTED WITH GTF VITAL AF AT 50ML/HR. RECTAL TUBE CONNECTED TO BAG DRAINING BY GRAVITY. HATFIELD NOTED, DRAINING YELLOW URINE. SKIN ALTERATION NOTED. ON P200 MATTRESS. L UA PICC WITH LEVOPHED RUNNING AT 6MCG/MIN FOLLOWING HOSPITAL PROTOCOL. CALL LIGHT WITHIN REACH. BED AT LOWEST POSITION. SIDE RAILS UP. WILL CONTINUE TO MONITOR.
--- NOTE | 2019-03-01 07:31 | NUR ---
RESPIRATORY NOTE: received pt orally intubated with ETT 7.0, place 22cm at the lip. ETT is secured via anchor fast with no visible redness or skin wounds. bilateral rhonchi breath sounds upon auscultation with small amount of thick, fraser/yellow secretions when suctioned. ambu bag at bedside with alarms set and audible. will attempt to wean later this morning and cont to monitor throughout the day.
--- NOTE | 2019-03-01 07:47 | General Progress Note ---
Assessment/Plan Problem List: (1) Septic shock ICD Codes: A41.9 - Sepsis, unspecified organism; R65.21 - Severe sepsis with septic shock SNOMED: 55591693 (2) UTI (urinary tract infection) ICD Codes: N39.0 - Urinary tract infection, site not specified SNOMED: 11406945 Qualifiers: Qualified Codes: N39.0 - Urinary tract infection, site not specified (3) Renal failure ICD Codes: N19 - Unspecified kidney failure SNOMED: 87826604 Qualifiers: Qualified Codes: N17.9 - Acute kidney failure, unspecified (4) Abdominal pain ICD Codes: R10.9 - Unspecified abdominal pain SNOMED: 57705002 Qualifiers: Qualified Codes: R10.32 - Left lower quadrant pain (5) Severe sepsis ICD Codes: A41.9 - Sepsis, unspecified organism; R65.20 - Severe sepsis without septic shock SNOMED: 38148098 (6) Dehydration ICD Codes: E86.0 - Dehydration SNOMED: 46405414 (7) Atrial fibrillation with rapid ventricular response ICD Codes: I48.91 - Unspecified atrial fibrillation SNOMED: 714570701002343 Status: stable, not improved, deteriorating Assessment/Plan: cont supportive care pressors- wean as able. still on levo- try to wean wean vent resp rx and suctioning as needed monitor labs scd if duplex neg iv abx per id tube feeds Subjective ROS Limited/Unobtainable: No Constitutional: Reports: malaise, weakness HEENT: Reports: no symptoms Cardiovascular: Reports: no symptoms Respiratory: Reports: no symptoms Gastrointestinal/Abdominal: Reports: difficulty swallowing Genitourinary: Reports: no symptoms Neurologic/Psychiatric: Reports: pre-existing deficit Endocrine: Reports: no symptoms Hematologic/Lymphatic: Reports: anemia Allergies: Coded Allergies: No Known Allergies (Unverified , 02/19/19) All Systems: reviewed and negative except above Subjective remains intubated on pressors. decreased pressor requirements. tolerating feeds. labs reviewed. alert. follows commands Objective Last 24 Hour Vital Signs Date Time Temp Pulse Resp B/P (MAP) Pulse Ox O2 Delivery O2 Flow Rate FiO2 03/01/19 07:28 109 16 35 03/01/19 07:15 110 21 110/63 (79) 98 03/01/19 07:00 102 5 99/52 (68) 99 03/01/19 07:00 110/63 03/01/19 06:45 108 20 107/60 (76) 98 03/01/19 06:45 108 20 107/60 (76) 98 03/01/19 06:30 106 2 101/57 (72) 98 03/01/19 06:15 104 9 101/54 (70) 98 03/01/19 06:00 100 0 98/56 (70) 100 03/01/19 06:00 101/64 03/01/19 05:45 108 22 109/62 (78) 98 03/01/19 05:30 103 1 91/56 (68) 99 03/01/19 05:15 105 17 102/57 (72) 99 03/01/19 05:07 109 16 35 03/01/19 05:00 105 10 98/53 (68) 99 03/01/19 05:00 102/57 03/01/19 04:45 108 17 93/51 (65) 99 03/01/19 04:30 118 21 106/59 (75) 99 03/01/19 04:15 121 28 115/78 (90) 99 03/01/19 04:00 98.8 132 25 132/89 (103) 99 03/01/19 04:00 106 03/01/19 04:00 106/59 03/01/19 04:00 Mechanical Ventilator 03/01/19 04:00 35 03/01/19 03:45 115 25 109/78 (88) 98 03/01/19 03:30 113 25 97/56 (70) 98 03/01/19 03:15 113 21 110/63 (79) 98 03/01/19 03:00 111 30 99 03/01/19 03:00 118/63 03/01/19 02:52 113 16 35 03/01/19 02:45 111 19 122/72 (89) 98 03/01/19 02:30 108 17 107/62 (77) 98 03/01/19 02:15 108 21 111/64 (80) 98 03/01/19 02:00 109 22 118/65 (82) 98 03/01/19 02:00 107/62 03/01/19 01:45 111 19 111/64 (80) 98 03/01/19 01:30 111 19 107/65 (79) 98 03/01/19 01:15 112 21 118/74 (89) 99 03/01/19 01:00 112 16 124/68 (86) 96 03/01/19 01:00 118/74 03/01/19 00:58 112 18 35 03/01/19 00:45 104 17 107/64 (78) 99 03/01/19 00:30 106 16 112/64 (80) 100 03/01/19 00:15 106 17 105/62 (76) 99 03/01/19 00:00 98.5 105 17 99/58 (72) 99 03/01/19 00:00 107 03/01/19 00:00 Mechanical Ventilator 03/01/19 00:00 105/62 02/28/19 23:45 107 16 102/56 (71) 99 02/28/19 23:30 103 19 105/63 (77) 99 02/28/19 23:15 103 16 108/59 (75) 99 02/28/19 23:00 106/59 02/28/19 23:00 105 16 102/57 (72) 99 02/28/19 22:45 102 16 104/59 (74) 99 02/28/19 22:39 105 16 35 02/28/19 22:30 96 16 105/58 (74) 99 02/28/19 22:15 100 16 103/55 (71) 99 02/28/19 22:00 102 16 106/59 (75) 99 02/28/19 22:00 103/55 02/28/19 21:45 102 18 106/62 (77) 99 02/28/19 21:30 103 16 104/60 (75) 99 02/28/19 21:15 100 16 101/54 (70) 99 02/28/19 21:00 103 16 105/56 (72) 100 02/28/19 21:00 101/54 02/28/19 20:56 107 16 35 02/28/19 20:45 113 21 111/68 (82) 99 02/28/19 20:30 105 16 111/63 (79) 99 02/28/19 20:15 105 15 102/69 (80) 99 02/28/19 20:00 35 02/28/19 20:00 104 02/28/19 20:00 Mechanical Ventilator 02/28/19 20:00 102/69 02/28/19 20:00 107 16 103/64 (77) 99 02/28/19 19:45 105 16 113/51 (71) 99 02/28/19 19:30 107 18 112/64 (80) 99 02/28/19 19:00 98 16 117/57 (77) 02/28/19 19:00 110/62 02/28/19 18:55 102 16 35 02/28/19 18:30 90 16 119/64 (82) 99 02/28/19 18:00 96 16 112/58 (76) 100 02/28/19 18:00 119/64 02/28/19 17:29 102 18 119/65 (83) 99 02/28/19 17:00 100 16 106/64 (78) 100 02/28/19 17:00 106/64 02/28/19 16:32 106 16 35 02/28/19 16:30 98.7 111 18 104/66 (79) 99 02/28/19 16:00 109 18 111/56 (74) 98 02/28/19 16:00 35 02/28/19 16:00 107 02/28/19 16:00 Mechanical Ventilator 02/28/19 16:00 108/64 02/28/19 15:30 110 16 108/62 (77) 98 02/28/19 15:00 108/59 02/28/19 15:00 111 16 108/59 (75) 98 02/28/19 15:00 107 16 35 02/28/19 14:30 113 17 105/57 (73) 97 02/28/19 14:00 112 18 113/58 (76) 97 02/28/19 14:00 113/58 02/28/19 13:30 109 16 114/55 (74) 97 02/28/19 13:00 107/61 02/28/19 13:00 120 18 107/61 (76) 98 02/28/19 12:40 115 16 35 02/28/19 12:30 114 16 115/59 (77) 98 02/28/19 12:02 116 02/28/19 12:00 35 02/28/19 12:00 98.6 116 17 108/61 (77) 97 02/28/19 12:00 Mechanical Ventilator 02/28/19 12:00 108/61 02/28/19 11:36 114 02/28/19 11:30 125 16 111/73 (86) 98 02/28/19 11:00 103/61 02/28/19 11:00 118 16 90/48 (62) 97 02/28/19 10:31 130 30 35 02/28/19 10:30 122 20 127/65 (85) 96 02/28/19 10:05 35 02/28/19 10:00 110/70 02/28/19 10:00 133 24 108/74 (85) 94 02/28/19 09:30 100 02/28/19 09:30 123 24 35 02/28/19 09:30 131 23 103/38 (59) 96 02/28/19 09:24 117 18 35 02/28/19 09:00 104/63 02/28/19 09:00 125 18 104/63 (77) 98 02/28/19 08:30 124 17 102/58 (73) 99 02/28/19 08:30 35 02/28/19 08:00 98.4 116 16 113/56 (75) 98 02/28/19 08:00 35 02/28/19 08:00 Mechanical Ventilator 02/28/19 08:00 113/56 02/28/19 08:00 118 Intake and Output 02/28/19 03/01/19 19:00 07:00 Intake Total 1460.00 ml 861.70 ml Output Total 570 ml 410 ml Balance 890.00 ml 451.70 ml Free Water 100 ml 100 ml IV Total 710.00 ml 161.70 ml Tube Feeding 650 ml 600 ml Output Urine Total 570 ml 410 ml Laboratory Tests 03/01/19 04:05: White Blood Count 16.8H, Red Blood Count 2.52L, Hemoglobin 8.3L, Hematocrit 26.2L, Mean Corpuscular Volume 104H, Mean Corpuscular Hemoglobin 32.9H, Mean Corpuscular Hemoglobin Concent 31.7L, Red Cell Distribution Width 18.7H, Platelet Count 99L, Mean Platelet Volume 8.1, Neutrophils (%) (Auto) , Lymphocytes (%) (Auto) , Monocytes (%) (Auto) , Eosinophils (%) (Auto) , Basophils (%) (Auto) , Neutrophils % (Manual) [Pending], Lymphocytes % (Manual) [Pending], Platelet Estimate [Pending], Platelet Morphology [Pending], Sodium Level 142, Potassium Level 5.2H, Chloride Level 112H, Carbon Dioxide Level 26, Anion Gap 4L, Blood Urea Nitrogen 30H, Creatinine 1.1, Estimat Glomerular Filtration Rate , Glucose Level 178H, Calcium Level 7.6L, Magnesium Level [ Pending], Total Bilirubin 1.8H, Direct Bilirubin 1.4H, Aspartate Amino Transf ( AST/SGOT) 107H, Alanine Aminotransferase (ALT/SGPT) 63, Alkaline Phosphatase 181H, Total Protein 5.5L, Albumin 1.6L, Globulin 3.9, Albumin/Globulin Ratio 0.4L Height (Feet): 5 Height (Inches): 6.00 Weight (Pounds): 154 Objective General Appearance: WD/WN, confused. more responsive, orally intubated Neck: supple Cardiovascular: irregularly irregular Respiratory/Chest: chest wall non-tender, lungs clear, normal breath sounds, no respiratory distress Abdomen: normal bowel sounds, non tender, soft, no organomegaly Edema: no edema noted Arm (L), no edema noted Arm (R), no edema noted Leg (L), no edema noted Leg (R), no edema noted Pedal (L), no edema noted Pedal (R), no edema noted Generalized Neurologic: disoriented Mitchel Reis MD Mar 01, 2019 07:47
--- NOTE | 2019-03-01 08:31 | Critical Care Progress Note ---
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, chronic atrial fibrillation, hypertension, diastolic congestive heart failure, septic shock, hypothermia, hypotension, hypoxemia severe PCM, thrombocytopenia, anemia, leukocytosis, acute renal failure Vent support PLAN care noted vent management and try to wean- discussed with RN monitor secretions and vent settings and imaging monitor acid base support as able full code as outlined pressors as needed- monitor for hypotension IV antibiotics and cultures noted respiratory care SNF meds supportive care suction and monitor imaging monitor for aspiration and change oxygen therapy as needed ICU care reviewed close follow up of acid base for now remains critical at present medications/laboratory data/nursing notes/ICU care reviewed in detail note reviewed and edited care discussed with RN and RT ICU time spent 38 minutes Critical Care - Subjective Interval Events: care noted on vent ICU care reviewed ROS Limited/Unobtainable: Yes Condition: critical EKG Rhythm: Sinus Rhythm Residuals: minimal Tube Feeding Tolerated: yes I&O: Intake and Output 02/28/19 03/01/19 19:00 07:00 Intake Total 1460.00 ml 861.70 ml Output Total 570 ml 410 ml Balance 890.00 ml 451.70 ml Free Water 100 ml 100 ml IV Total 710.00 ml 161.70 ml Tube Feeding 650 ml 600 ml Output Urine Total 570 ml 410 ml Critical Care - Objective ET-Tube: 7.0 ET Position: 22 Last 24 Hour Vital Signs Date Time Temp Pulse Resp B/P (MAP) Pulse Ox O2 Delivery O2 Flow Rate FiO2 03/01/19 08:00 99.2 107 0 97/58 (71) 99 03/01/19 08:00 35 03/01/19 07:30 106 24 117/67 (84) 99 03/01/19 07:28 109 16 35 03/01/19 07:15 110 21 110/63 (79) 98 03/01/19 07:00 102 5 99/52 (68) 99 03/01/19 07:00 110/63 03/01/19 06:45 108 20 107/60 (76) 98 03/01/19 06:45 108 20 107/60 (76) 98 03/01/19 06:30 106 2 101/57 (72) 98 03/01/19 06:15 104 9 101/54 (70) 98 03/01/19 06:00 100 0 98/56 (70) 100 03/01/19 06:00 101/64 03/01/19 05:45 108 22 109/62 (78) 98 03/01/19 05:30 103 1 91/56 (68) 99 03/01/19 05:15 105 17 102/57 (72) 99 03/01/19 05:07 109 16 35 03/01/19 05:00 105 10 98/53 (68) 99 03/01/19 05:00 102/57 03/01/19 04:45 108 17 93/51 (65) 99 03/01/19 04:30 118 21 106/59 (75) 99 03/01/19 04:15 121 28 115/78 (90) 99 03/01/19 04:00 98.8 132 25 132/89 (103) 99 03/01/19 04:00 106 03/01/19 04:00 106/59 03/01/19 04:00 Mechanical Ventilator 03/01/19 04:00 35 03/01/19 03:45 115 25 109/78 (88) 98 03/01/19 03:30 113 25 97/56 (70) 98 03/01/19 03:15 113 21 110/63 (79) 98 03/01/19 03:00 111 30 99 03/01/19 03:00 118/63 03/01/19 02:52 113 16 35 03/01/19 02:45 111 19 122/72 (89) 98 03/01/19 02:30 108 17 107/62 (77) 98 03/01/19 02:15 108 21 111/64 (80) 98 03/01/19 02:00 109 22 118/65 (82) 98 03/01/19 02:00 107/62 03/01/19 01:45 111 19 111/64 (80) 98 03/01/19 01:30 111 19 107/65 (79) 98 03/01/19 01:15 112 21 118/74 (89) 99 03/01/19 01:00 112 16 124/68 (86) 96 03/01/19 01:00 118/74 03/01/19 00:58 112 18 35 03/01/19 00:45 104 17 107/64 (78) 99 03/01/19 00:30 106 16 112/64 (80) 100 03/01/19 00:15 106 17 105/62 (76) 99 03/01/19 00:00 98.5 105 17 99/58 (72) 99 03/01/19 00:00 107 03/01/19 00:00 Mechanical Ventilator 03/01/19 00:00 105/62 02/28/19 23:45 107 16 102/56 (71) 99 02/28/19 23:30 103 19 105/63 (77) 99 02/28/19 23:15 103 16 108/59 (75) 99 02/28/19 23:00 106/59 02/28/19 23:00 105 16 102/57 (72) 99 02/28/19 22:45 102 16 104/59 (74) 99 02/28/19 22:39 105 16 35 02/28/19 22:30 96 16 105/58 (74) 99 02/28/19 22:15 100 16 103/55 (71) 99 02/28/19 22:00 102 16 106/59 (75) 99 02/28/19 22:00 103/55 02/28/19 21:45 102 18 106/62 (77) 99 02/28/19 21:30 103 16 104/60 (75) 99 02/28/19 21:15 100 16 101/54 (70) 99 02/28/19 21:00 103 16 105/56 (72) 100 02/28/19 21:00 101/54 02/28/19 20:56 107 16 35 02/28/19 20:45 113 21 111/68 (82) 99 02/28/19 20:30 105 16 111/63 (79) 99 02/28/19 20:15 105 15 102/69 (80) 99 02/28/19 20:00 35 02/28/19 20:00 104 02/28/19 20:00 Mechanical Ventilator 02/28/19 20:00 102/69 02/28/19 20:00 107 16 103/64 (77) 99 02/28/19 19:45 105 16 113/51 (71) 99 02/28/19 19:30 107 18 112/64 (80) 99 19 19:00 98 16 117/57 (77) 02/28/19 19:00 110/62 02/28/19 18:55 102 16 35 02/28/19 18:30 90 16 119/64 (82) 99 02/28/19 18:00 96 16 112/58 (76) 100 02/28/19 18:00 119/64 02/28/19 17:29 102 18 119/65 (83) 99 02/28/19 17:00 100 16 106/64 (78) 100 02/28/19 17:00 106/64 02/28/19 16:32 106 16 35 02/28/19 16:30 98.7 111 18 104/66 (79) 99 02/28/19 16:00 109 18 111/56 (74) 98 02/28/19 16:00 35 02/28/19 16:00 107 02/28/19 16:00 Mechanical Ventilator 02/28/19 16:00 108/64 02/28/19 15:30 110 16 108/62 (77) 98 02/28/19 15:00 108/59 02/28/19 15:00 111 16 108/59 (75) 98 02/28/19 15:00 107 16 35 02/28/19 14:30 113 17 105/57 (73) 97 02/28/19 14:00 112 18 113/58 (76) 97 02/28/19 14:00 113/58 02/28/19 13:30 109 16 114/55 (74) 97 02/28/19 13:00 107/61 02/28/19 13:00 120 18 107/61 (76) 98 02/28/19 12:40 115 16 35 02/28/19 12:30 114 16 115/59 (77) 98 02/28/19 12:02 116 02/28/19 12:00 35 02/28/19 12:00 98.6 116 17 108/61 (77) 97 02/28/19 12:00 Mechanical Ventilator 02/28/19 12:00 108/61 02/28/19 11:36 114 02/28/19 11:30 125 16 111/73 (86) 98 02/28/19 11:00 103/61 02/28/19 11:00 118 16 90/48 (62) 97 02/28/19 10:31 130 30 35 02/28/19 10:30 122 20 127/65 (85) 96 11/20/19 10:05 35 02/28/19 10:00 110/70 02/28/19 10:00 133 24 108/74 (85) 94 02/28/19 09:30 100 02/28/19 09:30 123 24 35 02/28/19 09:30 131 23 103/38 (59) 96 02/28/19 09:24 117 18 35 02/28/19 09:00 104/63 02/28/19 09:00 125 18 104/63 (77) 98 02/28/19 08:30 124 17 102/58 (73) 99 02/28/19 08:30 35 Labs: Labs Test 02/26/19 11:45 02/27/19 09:40 02/28/19 03:20 03/01/19 04:05 White Blood Count 14.6 K/UL (4.8-10.8) 15.0 K/UL (4.8-10.8) 18.5 K/UL (4.8-10.8) 16.8 K/UL (4.8-10.8) Red Blood Count 2.66 M/UL (4.20-5.40) 2.62 M/UL (4.20-5.40) 2.67 M/UL (4.20-5.40) 2.52 M/UL (4.20-5.40) Hemoglobin 8.7 G/DL (12.0-16.0) 8.6 G/DL (12.0-16.0) 8.6 G/DL (12.0-16.0) 8.3 G/DL (12.0-16.0) Hematocrit 27.4 % (37.0-47.0) 26.5 % (37.0-47.0) 27.8 % (37.0-47.0) 26.2 % (37.0-47.0) Mean Corpuscular Volume 103 FL (80-99) 101 FL (80-99) 105 FL (80-99) 104 FL ( 80-99) Mean Corpuscular Hemoglobin 32.7 PG (27.0-31.0) 32.8 PG (27.0-31.0) 32.4 PG (27.0-31.0) 32.9 PG (27.0-31.0) Mean Corpuscular Hemoglobin Concent 31.7 G/DL (32.0-36.0) 32.5 G/DL (32.0-36.0) 31.0 G/DL (32.0-36.0) 31.7 G/DL (32.0-36.0) Red Cell Distribution Width 17.5 % (11.6-14.8) 17.1 % (11.6-14.8) 19.1 % (11.6-14.8) 18.7 % (11.6-14.8) Platelet Count 24 K/UL (150-450) 44 K/UL (150-450) 102 K/UL (150-450) 99 K/UL (150-450) Mean Platelet Volume 6.0 FL (6.5-10.1) 11.8 FL (6.5-10.1) 7.1 FL (6.5-10.1) 8.1 FL (6.5-10.1) Neutrophils (%) (Auto) % (45.0-75.0) % (45.0-75.0) % (45.0-75.0) % (45.0- 75.0) Lymphocytes (%) (Auto) % (20.0-45.0) % (20.0-45.0) % (20.0-45.0) % (20.0- 45.0) Monocytes (%) (Auto) % (1.0-10.0) % (1.0-10.0) % (1.0-10.0) % (1.0-10.0) Eosinophils (%) (Auto) % (0.0-3.0) % (0.0-3.0) % (0.0-3.0) % (0.0-3.0) Basophils (%) (Auto) % (0.0-2.0) % (0.0-2.0) % (0.0-2.0) % (0.0-2.0) Differential Total Cells Counted 100 100 100 Neutrophils % (Manual) 95 % (45-75) 95 % (45-75) 95 % (45-75) Lymphocytes % (Manual) 2 % (20-45) 1 % (20-45) 3 % (20-45) Monocytes % (Manual) 3 % (1-10) 1 % (1-10) 2 % (1-10) Eosinophils % (Manual) 0 % (0-3) 1 % (0-3) 0 % (0-3) Basophils % (Manual) 0 % (0-2) 0 % (0-2) 0 % (0-2) Band Neutrophils 0 % (0-8) 2 % (0-8) 0 % (0-8) Platelet Estimate Decreased Decreased Decreased Platelet Morphology Normal Normal Normal Polychromasia 1+ Hypochromasia 1+ 1+ Anisocytosis 1+ 1+ 1+ Macrocytosis 2+ 1+ Sodium Level 145 MMOL/L (136-145) 143 MMOL/L (136-145) 142 MMOL/L (136-145) Potassium Level 4.0 MMOL/L (3.5-5.1) 4.5 MMOL/L (3.5-5.1) 5.2 MMOL/L (3.5-5.1) Chloride Level 113 MMOL/L (98-107) 111 MMOL/L (98-107) 112 MMOL/L (98-107) Carbon Dioxide Level 25 MMOL/L (21-32) 28 MMOL/L (21-32) 26 MMOL/L (21-32) Anion Gap 7 mmol/L (5-15) 4 mmol/L (5-15) 4 mmol/L (5-15) Blood Urea Nitrogen 34 mg/dL (7-18) 32 mg/dL (7-18) 30 mg/dL (7-18) Creatinine 1.2 MG/DL (0.55-1.30) 1.2 MG/DL (0.55-1.30) 1.1 MG/DL (0.55-1.30) Estimat Glomerular Filtration Rate mL/min (>60) mL/min (>60) mL/min (>60) Glucose Level 171 MG/DL (74-106) 189 MG/DL (74-106) 178 MG/DL (74-106) Calcium Level 7.4 MG/DL (8.5-10.1) 7.7 MG/DL (8.5-10.1) 7.6 MG/DL (8.5-10.1) Phosphorus Level 2.5 MG/DL (2.5-4.9) 2.1 MG/DL (2.5-4.9) Magnesium Level 1.7 MG/DL (1.8-2.4) 1.7 MG/DL (1.8-2.4) 1.6 MG/DL (1.8-2.4) Total Bilirubin 1.8 MG/DL (0.2-1.0) 1.8 MG/DL (0.2-1.0) 1.8 MG/DL (0.2-1.0) Direct Bilirubin 1.3 MG/DL (0.0-0.3) 1.3 MG/DL (0.0-0.3) 1.4 MG/DL (0.0-0.3) Aspartate Amino Transf (AST/SGOT) 79 U/L (15-37) 80 U/L (15-37) 107 U/L (15-37) Alanine Aminotransferase (ALT/SGPT) 51 U/L (12-78) 55 U/L (12-78) 63 U/L (12-78) Alkaline Phosphatase 131 U/L (46-116) 156 U/L (46-116) 181 U/L (46-116) Total Protein 4.9 G/DL (6.4-8.2) 5.4 G/DL (6.4-8.2) 5.5 G/DL (6.4-8.2) Albumin 1.6 G/DL (3.4-5.0) 1.7 G/DL (3.4-5.0) 1.6 G/DL (3.4-5.0) Globulin 3.3 g/dL 3.7 g/dL 3.9 g/dL Albumin/Globulin Ratio 0.5 (1.0-2.7) 0.5 (1.0-2.7) 0.4 (1.0-2.7) Digoxin Level 1.6 NG/ML (0.9-2.0) Nucleated Red Blood Cells 2 /100 WBC Ovalocytes 1+ Acanthocytes 1+ Objective: PHYSICAL EXAMINATION: GENERAL: The patient is a chronically ill-appearing female, on VENT and not weaning yet NECK: Supple. There is a central line in the right subclavian area. HEART: iRRR.without MRG LUNGS: reduced breath sounds with some rhonchi; no wheeze ABDOMEN: Soft, nontender, nondistended. no HSM EXTREMITIES: No clubbing, cyanosis, or edema. NEURO: response to pain skin noted Accucheck: 72 Jan Anderson MD Mar 01, 2019 08:31
[2019-03-01] MEDS: Pantoprazole Inj IVP SCH ×2 (08:46→21:38)
[2019-03-01] MEDS: Norepinephrine Bitartrate 16 MG in D5W 500ml 484 ML IV SCH (08:47)
--- NOTE | 2019-03-01 09:00 | NUR ---
RESPIRATORY NOTE: attempted to wean pt on CPAP PS8 fio2 35%. pt RR increased to 28-29 and HR increased well above 120. RN notified and will attempt to wean again this afternoon
--- NOTE | 2019-03-01 09:00 | NUR ---
NURSE NOTES: TRIED WEANING THE PATIENT BUT FAILED. WILL CONTINUE TO MONITOR.
--- NOTE | 2019-03-01 11:06 | Infectious Diseases Prog Note ---
Assessment/Plan Assessment/Plan A 1. pneumonia 2. fungal UTI 3.Acute renal failure 4. septic shock 5. CHF, systolic 6. dementia 7. Hypoxic respiratory failure 8. 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 Portal hypertension 12. 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 continue Levaquin 2. Poor prognosis Subjective ROS Limited/Unobtainable: Yes Constitutional: Denies: fever Respiratory: Reports: other - failed weaning Gastrointestinal/Abdominal: Reports: diarrhea Neurologic: Reports: other Allergies: Coded Allergies: No Known Allergies (Unverified , 02/19/19) Objective Vital Signs Last 24 Hour Vital Signs Date Time Temp Pulse Resp B/P (MAP) Pulse Ox O2 Delivery O2 Flow Rate FiO2 03/01/19 10:58 97 16 35 03/01/19 09:01 122 21 35 03/01/19 08:58 97 03/01/19 08:47 95/60 03/01/19 08:30 110 18 113/72 (86) 99 03/01/19 08:00 99.2 107 20 97/58 (71) 99 03/01/19 08:00 35 03/01/19 08:00 Mechanical Ventilator 03/01/19 07:30 106 24 117/67 (84) 99 03/01/19 07:28 109 16 35 03/01/19 07:15 110 21 110/63 (79) 98 03/01/19 07:00 102 5 99/52 (68) 99 03/01/19 07:00 110/63 03/01/19 06:45 108 20 107/60 (76) 98 03/01/19 06:45 108 20 107/60 (76) 98 03/01/19 06:30 106 2 101/57 (72) 98 03/01/19 06:15 104 9 101/54 (70) 98 03/01/19 06:00 100 0 98/56 (70) 100 03/01/19 06:00 101/64 03/01/19 05:45 108 22 109/62 (78) 98 03/01/19 05:30 103 1 91/56 (68) 99 03/01/19 05:15 105 17 102/57 (72) 99 03/01/19 05:07 109 16 35 03/01/19 05:00 105 10 98/53 (68) 99 03/01/19 05:00 102/57 03/01/19 04:45 108 17 93/51 (65) 99 03/01/19 04:30 118 21 106/59 (75) 99 03/01/19 04:15 121 28 115/78 (90) 99 03/01/19 04:00 98.8 132 25 132/89 (103) 99 03/01/19 04:00 106 03/01/19 04:00 106/59 03/01/19 04:00 Mechanical Ventilator 03/01/19 04:00 35 03/01/19 03:45 115 25 109/78 (88) 98 03/01/19 03:30 113 25 97/56 (70) 98 03/01/19 03:15 113 21 110/63 (79) 98 03/01/19 03:00 111 30 99 03/01/19 03:00 118/63 03/01/19 02:52 113 16 35 03/01/19 02:45 111 19 122/72 (89) 98 03/01/19 02:30 108 17 107/62 (77) 98 03/01/19 02:15 108 21 111/64 (80) 98 03/01/19 02:00 109 22 118/65 (82) 98 03/01/19 02:00 107/62 03/01/19 01:45 111 19 111/64 (80) 98 03/01/19 01:30 111 19 107/65 (79) 98 03/01/19 01:15 112 21 118/74 (89) 99 03/01/19 01:00 112 16 124/68 (86) 96 03/01/19 01:00 118/74 03/01/19 00:58 112 18 35 03/01/19 00:45 104 17 107/64 (78) 99 03/01/19 00:30 106 16 112/64 (80) 100 03/01/19 00:15 106 17 105/62 (76) 99 03/01/19 00:00 98.5 105 17 99/58 (72) 99 03/01/19 00:00 107 03/01/19 00:00 Mechanical Ventilator 03/01/19 00:00 105/62 02/28/19 23:45 107 16 102/56 (71) 99 11/20/19 23:30 103 19 105/63 (77) 99 20 23:15 103 16 108/59 (75) 99 19 23:00 106/59 02/28/19 23:00 105 16 102/57 (72) 99 02/28/19 22:45 102 16 104/59 (74) 99 02/28/19 22:39 105 16 35 02/28/19 22:30 96 16 105/58 (74) 99 2019 22:15 100 16 103/55 (71) 99 02/28/19 22:00 102 16 106/59 (75) 99 19 22:00 103/55 02/28/19 21:45 102 18 106/62 (77) 99 02/28/19 21:30 103 16 104/60 (75) 99 02/28/19 21:15 100 16 101/54 (70) 99 02/28/19 21:00 103 16 105/56 (72) 100 02/28/19 21:00 101/54 02/28/19 20:56 107 16 35 02/28/19 20:45 113 21 111/68 (82) 99 02/28/19 20:30 105 16 111/63 (79) 99 02/28/19 20:15 105 15 102/69 (80) 99 02/28/19 20:00 35 02/28/19 20:00 104 02/28/19 20:00 Mechanical Ventilator 02/28/19 20:00 102/69 02/28/19 20:00 107 16 103/64 (77) 99 02/28/19 19:45 105 16 113/51 (71) 99 02/28/19 19:30 107 18 112/64 (80) 99 02/28/19 19:00 98 16 117/57 (77) 19 19:00 110/62 02/28/19 18:55 102 16 35 02/28/19 18:30 90 16 119/64 (82) 99 02/28/19 18:00 96 16 112/58 (76) 100 02/28/19 18:00 119/64 19 17:29 102 18 119/65 (83) 99 02/28/19 17:00 100 16 106/64 (78) 100 11/20/19 17:00 106/64 02/28/19 16:32 106 16 35 02/28/19 16:30 98.7 111 18 104/66 (79) 99 02/28/19 16:00 109 18 111/56 (74) 98 02/28/19 16:00 35 02/28/19 16:00 107 02/28/19 16:00 Mechanical Ventilator 02/28/19 16:00 108/64 02/28/19 15:30 110 16 108/62 (77) 98 02/28/19 15:00 108/59 02/28/19 15:00 111 16 108/59 (75) 98 02/28/19 15:00 107 16 35 02/28/19 14:30 113 17 105/57 (73) 97 02/28/19 14:00 112 18 113/58 (76) 97 02/28/19 14:00 113/58 02/28/19 13:30 109 16 114/55 (74) 97 02/28/19 13:00 107/61 02/28/19 13:00 120 18 107/61 (76) 98 02/28/19 12:40 115 16 35 02/28/19 12:30 114 16 115/59 (77) 98 02/28/19 12:02 116 02/28/19 12:00 35 02/28/19 12:00 98.6 116 17 108/61 (77) 97 02/28/19 12:00 Mechanical Ventilator 02/28/19 12:00 108/61 02/28/19 11:36 114 02/28/19 11:30 125 16 111/73 (86) 98 Height (Feet): 5 Height (Inches): 6.00 Weight (Pounds): 154 HEENT: other - orally intubated Respiratory/Chest: decreased breath sounds, other - on ventilator Cardiovascular: tachycardia, other - left arm PICC line,RIJ central line Abdomen: soft, non tender, other - GT & rectal tube Extremities: no edema Neurologic/Psychiatric: alert, responsive Laboratory Tests Test 03/01/19 04:04 03/01/19 04:05 Phosphorus Level 3.1 MG/DL (2.5-4.9) White Blood Count 16.8 K/UL (4.8-10.8) H Red Blood Count 2.52 M/UL (4.20-5.40) L Hemoglobin 8.3 G/DL (12.0-16.0) L Hematocrit 26.2 % (37.0-47.0) L Mean Corpuscular Volume 104 FL (80-99) H Mean Corpuscular Hemoglobin 32.9 PG (27.0-31.0) H Mean Corpuscular Hemoglobin Concent 31.7 G/DL (32.0-36.0) L Red Cell Distribution Width 18.7 % (11.6-14.8) H Platelet Count 99 K/UL (150-450) L Mean Platelet Volume 8.1 FL (6.5-10.1) Neutrophils (%) (Auto) % (45.0-75.0) Lymphocytes (%) (Auto) % (20.0-45.0) Monocytes (%) (Auto) % (1.0-10.0) Eosinophils (%) (Auto) % (0.0-3.0) Basophils (%) (Auto) % (0.0-2.0) Differential Total Cells Counted 100 Neutrophils % (Manual) 95 % (45-75) H Lymphocytes % (Manual) 3 % (20-45) L Monocytes % (Manual) 0 % (1-10) L Eosinophils % (Manual) 1 % (0-3) Basophils % (Manual) 0 % (0-2) Band Neutrophils 1 % (0-8) Platelet Estimate Decreased L Platelet Morphology Normal Hypochromasia 1+ Anisocytosis 2+ Macrocytosis 2+ Sodium Level 142 MMOL/L (136-145) Potassium Level 5.2 MMOL/L (3.5-5.1) H Chloride Level 112 MMOL/L (98-107) H Carbon Dioxide Level 26 MMOL/L (21-32) Anion Gap 4 mmol/L (5-15) L Blood Urea Nitrogen 30 mg/dL (7-18) H Creatinine 1.1 MG/DL (0.55-1.30) Estimat Glomerular Filtration Rate mL/min (>60) Glucose Level 178 MG/DL (74-106) H Calcium Level 7.6 MG/DL (8.5-10.1) L Magnesium Level 1.6 MG/DL (1.8-2.4) L Total Bilirubin 1.8 MG/DL (0.2-1.0) H Direct Bilirubin 1.4 MG/DL (0.0-0.3) H Aspartate Amino Transf (AST/SGOT) 107 U/L (15-37) H Alanine Aminotransferase (ALT/SGPT) 63 U/L (12-78) Alkaline Phosphatase 181 U/L (46-116) H Total Protein 5.5 G/DL (6.4-8.2) L Albumin 1.6 G/DL (3.4-5.0) L Globulin 3.9 g/dL Albumin/Globulin Ratio 0.4 (1.0-2.7) L Current Medications Medications (Trade) Dose Ordered Sig/Pam Route PRN Reason Start Time Stop Time Status Last Admin Dose Admin Acetaminophen (Tylenol) 650 mg Q4H PRN ORAL Mild Pain/Temp > 100.5 02/19/19 17:15 03/21/19 17:14 Chlorhexidine Gluconate (Dayna-Hex 2%) 1 applic DAILY@2000 TOPIC 02/20/19 20:00 03/22/19 19:59 02/28/19 20:35 Levofloxacin (Levaquin) 250 mg DAILY ORAL 02/27/19 09:00 03/06/19 08:59 03/01/19 08:46 Norepinephrine Bitartrate 16 mg/ Dextrose 500 ml @ 0 mls/hr Q24H IV 02/26/19 17:30 03/28/19 17:29 03/01/19 08:47 Pantoprazole (Protonix) 40 mg Q12HR IVP 02/20/19 21:00 03/21/19 17:59 03/01/19 08:46 Neville Cunningham MD Mar 01, 2019 11:06
--- NOTE | 2019-03-01 11:10 | NUR ---
NURSE NOTES: PATIENT REFUSED WEANING. WILL CONTINUE TO MONITOR.
--- NOTE | 2019-03-01 11:45 | General Progress Note ---
Assessment/Plan Status: stable, not improved, deteriorating Assessment/Plan: Assessment - GT dependent - Hepatitis C (+) - Abnormal LFT, ascites, thrombocytopenia - suspect chronic liver disease - Lactic acidosis - Resp failure - OBS / Delirium - Azotemia - Diarrhea - r/o C Difficile diarrhea - poor PX Recommendations - supportive care - Abx per ID - agree with DNR Subjective Allergies: Coded Allergies: No Known Allergies (Unverified , 02/19/19) Subjective Above noted doing poorly intubated (+) diarrhea Objective Last 24 Hour Vital Signs Date Time Temp Pulse Resp B/P (MAP) Pulse Ox O2 Delivery O2 Flow Rate FiO2 03/01/19 10:58 97 16 35 03/01/19 09:01 122 21 35 03/01/19 08:58 97 03/01/19 08:47 95/60 03/01/19 08:30 110 18 113/72 (86) 99 03/01/19 08:00 99.2 107 20 97/58 (71) 99 03/01/19 08:00 35 03/01/19 08:00 Mechanical Ventilator 03/01/19 07:30 106 24 117/67 (84) 99 03/01/19 07:28 109 16 35 03/01/19 07:15 110 21 110/63 (79) 98 03/01/19 07:00 102 5 99/52 (68) 99 03/01/19 07:00 110/63 03/01/19 06:45 108 20 107/60 (76) 98 03/01/19 06:45 108 20 107/60 (76) 98 03/01/19 06:30 106 2 101/57 (72) 98 03/01/19 06:15 104 9 101/54 (70) 98 03/01/19 06:00 100 0 98/56 (70) 100 03/01/19 06:00 101/64 03/01/19 05:45 108 22 109/62 (78) 98 03/01/19 05:30 103 1 91/56 (68) 99 03/01/19 05:15 105 17 102/57 (72) 99 03/01/19 05:07 109 16 35 03/01/19 05:00 105 10 98/53 (68) 99 03/01/19 05:00 102/57 03/01/19 04:45 108 17 93/51 (65) 99 03/01/19 04:30 118 21 106/59 (75) 99 03/01/19 04:15 121 28 115/78 (90) 99 03/01/19 04:00 98.8 132 25 132/89 (103) 99 03/01/19 04:00 106 03/01/19 04:00 106/59 03/01/19 04:00 Mechanical Ventilator 03/01/19 04:00 35 03/01/19 03:45 115 25 109/78 (88) 98 03/01/19 03:30 113 25 97/56 (70) 98 03/01/19 03:15 113 21 110/63 (79) 98 03/01/19 03:00 111 30 99 03/01/19 03:00 118/63 03/01/19 02:52 113 16 35 03/01/19 02:45 111 19 122/72 (89) 98 03/01/19 02:30 108 17 107/62 (77) 98 03/01/19 02:15 108 21 111/64 (80) 98 03/01/19 02:00 109 22 118/65 (82) 98 03/01/19 02:00 107/62 03/01/19 01:45 111 19 111/64 (80) 98 03/01/19 01:30 111 19 107/65 (79) 98 03/01/19 01:15 112 21 118/74 (89) 99 03/01/19 01:00 112 16 124/68 (86) 96 03/01/19 01:00 118/74 03/01/19 00:58 112 18 35 03/01/19 00:45 104 17 107/64 (78) 99 03/01/19 00:30 106 16 112/64 (80) 100 03/01/19 00:15 106 17 105/62 (76) 99 03/01/19 00:00 98.5 105 17 99/58 (72) 99 03/01/19 00:00 107 03/01/19 00:00 Mechanical Ventilator 03/01/19 00:00 105/62 02/28/19 23:45 107 16 102/56 (71) 99 02/28/19 23:30 103 19 105/63 (77) 99 02/28/19 23:15 103 16 108/59 (75) 99 2019 23:00 106/59 19 23:00 105 16 102/57 (72) 99 19 22:45 102 16 104/59 (74) 99 2019 22:39 105 16 35 2019 22:30 96 16 105/58 (74) 99 2019 22:15 100 16 103/55 (71) 99 02/28/19 22:00 102 16 106/59 (75) 99 2019 22:00 103/55 2019 21:45 102 18 106/62 (77) 99 19 21:30 103 16 104/60 (75) 99 02/28/19 21:15 100 16 101/54 (70) 99 02/28/19 21:00 103 16 105/56 (72) 100 02/28/19 21:00 101/54 02/28/19 20:56 107 16 35 02/28/19 20:45 113 21 111/68 (82) 99 02/28/19 20:30 105 16 111/63 (79) 99 02/28/19 20:15 105 15 102/69 (80) 99 02/28/19 20:00 35 02/28/19 20:00 104 02/28/19 20:00 Mechanical Ventilator 02/28/19 20:00 102/69 02/28/19 20:00 107 16 103/64 (77) 99 02/28/19 19:45 105 16 113/51 (71) 99 02/28/19 19:30 107 18 112/64 (80) 99 02/28/19 19:00 98 16 117/57 (77) 19 19:00 110/62 02/28/19 18:55 102 16 35 02/28/19 18:30 90 16 119/64 (82) 99 02/28/19 18:00 96 16 112/58 (76) 100 02/28/19 18:00 119/64 19 17:29 102 18 119/65 (83) 99 02/28/19 17:00 100 16 106/64 (78) 100 02/28/19 17:00 106/64 19 16:32 106 16 35 19 16:30 98.7 111 18 104/66 (79) 99 02/28/19 16:00 109 18 111/56 (74) 98 02/28/19 16:00 35 02/28/19 16:00 107 02/28/19 16:00 Mechanical Ventilator 02/28/19 16:00 108/64 02/28/19 15:30 110 16 108/62 (77) 98 02/28/19 15:00 108/59 02/28/19 15:00 111 16 108/59 (75) 98 02/28/19 15:00 107 16 35 02/28/19 14:30 113 17 105/57 (73) 97 02/28/19 14:00 112 18 113/58 (76) 97 02/28/19 14:00 113/58 02/28/19 13:30 109 16 114/55 (74) 97 02/28/19 13:00 107/61 02/28/19 13:00 120 18 107/61 (76) 98 02/28/19 12:40 115 16 35 02/28/19 12:30 114 16 115/59 (77) 98 02/28/19 12:02 116 02/28/19 12:00 35 02/28/19 12:00 98.6 116 17 108/61 (77) 97 02/28/19 12:00 Mechanical Ventilator 02/28/19 12:00 108/61 Intake and Output 02/28/19 03/01/19 19:00 07:00 Intake Total 1460.00 ml 861.70 ml Output Total 570 ml 410 ml Balance 890.00 ml 451.70 ml Free Water 100 ml 100 ml IV Total 710.00 ml 161.70 ml Tube Feeding 650 ml 600 ml Output Urine Total 570 ml 410 ml Laboratory Tests 03/01/19 04:04: Phosphorus Level 3.1 03/01/19 04:05: White Blood Count 16.8H, Red Blood Count 2.52L, Hemoglobin 8.3L, Hematocrit 26.2L, Mean Corpuscular Volume 104H, Mean Corpuscular Hemoglobin 32.9H, Mean Corpuscular Hemoglobin Concent 31.7L, Red Cell Distribution Width 18.7H, Platelet Count 99L, Mean Platelet Volume 8.1, Neutrophils (%) (Auto) , Lymphocytes (%) (Auto) , Monocytes (%) (Auto) , Eosinophils (%) (Auto) , Basophils (%) (Auto) , Differential Total Cells Counted 100, Neutrophils % ( Manual) 95H, Lymphocytes % (Manual) 3L, Monocytes % (Manual) 0L, Eosinophils % ( Manual) 1, Basophils % (Manual) 0, Band Neutrophils 1, Platelet Estimate DecreasedL, Platelet Morphology Normal, Hypochromasia 1+, Anisocytosis 2+, Macrocytosis 2+, Sodium Level 142, Potassium Level 5.2H, Chloride Level 112H, Carbon Dioxide Level 26, Anion Gap 4L, Blood Urea Nitrogen 30H, Creatinine 1.1, Estimat Glomerular Filtration Rate , Glucose Level 178H, Calcium Level 7.6L, Magnesium Level 1.6L, Total Bilirubin 1.8H, Direct Bilirubin 1.4H, Aspartate Amino Transf (AST/SGOT) 107H, Alanine Aminotransferase (ALT/SGPT) 63, Alkaline Phosphatase 181H, Total Protein 5.5L, Albumin 1.6L, Globulin 3.9, Albumin/ Globulin Ratio 0.4L Height (Feet): 5 Height (Inches): 6.00 Weight (Pounds): 154 Objective WDWN NCAT Supple Coarse ronchi RR abd soft ND NT, (+) GT obtunded César Saldana MD Mar 01, 2019 11:45
--- NOTE | 2019-03-01 12:48 | NUR ---
RESPIRATORY NOTE: attempted to wean with RN at bedside. CPAP PS10 fio2 35%. pt HR and RR again increased. tolerated for about 5 minutes. asked pt if it was too hard to breathe, pt nodded "yes". placed back on AC mode. will cont to monitor.
--- NOTE | 2019-03-01 13:00 | NUR ---
NURSE NOTES: TRIED WEANING BUT SHE FAILED. PLACED BACK TO AC MODE WITH SAME VENT SETTINGS.
--- NOTE | 2019-03-01 13:03 | NUR ---
CASE MANAGEMENT:REVIEW 03/01/19 SI: SEPTIC SHOCK. RENAL FAILURE AFIB W/RVR. CARDIOMYOPATHY. INTUBATED 99.2 110 20 97/58 100% ON VENT SUPPORT 35% WBC+16.8 H/H-8.3/26.2 PLT-99 K+5.2 IS: LEVOPHED GTT LEVAQUIN NG QD K-DUR NG BID IV PROTONIX Q12 : ICU STATUS DCP: FROM [facility] CARE PLAN: BP SUPPORT WEAN FROM VENT
--- NOTE | 2019-03-01 13:12 | Diagnostic Imaging Report ---
APPROVED REPORT CPT Code: 53915 Present Symptoms Comments: Pain an Edema BILATERAL: Imaging reveals a patent deep venous system bilaterally. There is no evidence of thrombus within the common femoral, superficial femoral, popliteal or tibial segments. The greater saphenous veins are within normal limits. Doppler indicates pulsatile flow within these segments.
--- NOTE | 2019-03-01 13:47 | NUR ---
*-* INSURANCE *-* ALL CLINICALS AND REVIEWS HAVE BEEN FAXED TO: MARGARITA Clement Ref#[id number] CM: Dung #[phone] ext [phone] fax#[phone]
--- NOTE | 2019-03-01 14:50 | Nephrology Progress Note ---
Assessment/Plan Problem List: (1) Acute respiratory failure (2) Septic shock (3) Renal failure (4) Atrial fibrillation with rapid ventricular response (5) Cardiomyopathy Assessment Renal failure - ? Acute on Chronic, Partly dehydration Septic Shock UTI AT Fib with FVR h/o DM, proteinuria , HypoAlbuminemia Plan dig IV one dose K and Mag supplement as needed pulm support per consultants previously: stop NS intubated On 2 pressors BP remains low Poor prognosis - remains full code for now slow Hydrate 2D echo EjFx 40% antibiotics monitor renal parameters avoid nephrotoxics per orders Subjective ROS Limited/Unobtainable: Yes Objective Objective Last 24 Hour Vital Signs Date Time Temp Pulse Resp B/P (MAP) Pulse Ox O2 Delivery O2 Flow Rate FiO2 03/01/19 14:30 107 19 104/67 (79) 100 03/01/19 14:00 104 19 103/62 (76) 100 03/01/19 13:30 102 17 99/57 (71) 100 03/01/19 13:00 92/57 03/01/19 13:00 97 17 92/57 (69) 99 03/01/19 12:47 121 25 35 03/01/19 12:30 105 19 98/55 (69) 100 03/01/19 12:00 106 03/01/19 12:00 98.6 107 20 96/56 (69) 100 03/01/19 12:00 96/56 03/01/19 12:00 35 03/01/19 12:00 Mechanical Ventilator 03/01/19 11:45 104 19 97/59 (72) 100 03/01/19 11:30 100 16 94/54 (67) 03/01/19 11:15 103 18 91/46 (61) 98 03/01/19 11:00 91/55 03/01/19 11:00 104 20 91/55 (67) 100 03/01/19 10:58 97 16 35 03/01/19 10:30 102 16 114/58 (76) 100 03/01/19 10:00 108 18 102/56 (71) 99 03/01/19 10:00 98/59 03/01/19 09:30 110 18 96/62 (73) 99 03/01/19 09:01 122 21 35 03/01/19 09:00 103/67 03/01/19 09:00 129 24 132/90 (104) 99 03/01/19 08:58 97 03/01/19 08:47 95/60 03/01/19 08:30 110 18 113/72 (86) 99 03/01/19 08:00 99.2 107 20 97/58 (71) 99 03/01/19 08:00 35 03/01/19 08:00 105 03/01/19 08:00 Mechanical Ventilator 03/01/19 07:30 106 24 117/67 (84) 99 03/01/19 07:28 109 16 35 03/01/19 07:15 110 21 110/63 (79) 98 03/01/19 07:00 102 5 99/52 (68) 99 03/01/19 07:00 110/63 03/01/19 06:45 108 20 107/60 (76) 98 03/01/19 06:45 108 20 107/60 (76) 98 03/01/19 06:30 106 2 101/57 (72) 98 03/01/19 06:15 104 9 101/54 (70) 98 03/01/19 06:00 100 0 98/56 (70) 100 03/01/19 06:00 101/64 03/01/19 05:45 108 22 109/62 (78) 98 03/01/19 05:30 103 1 91/56 (68) 99 03/01/19 05:15 105 17 102/57 (72) 99 03/01/19 05:07 109 16 35 03/01/19 05:00 105 10 98/53 (68) 99 03/01/19 05:00 102/57 03/01/19 04:45 108 17 93/51 (65) 99 03/01/19 04:30 118 21 106/59 (75) 99 03/01/19 04:15 121 28 115/78 (90) 99 03/01/19 04:00 98.8 132 25 132/89 (103) 99 03/01/19 04:00 106 03/01/19 04:00 106/59 03/01/19 04:00 Mechanical Ventilator 03/01/19 04:00 35 03/01/19 03:45 115 25 109/78 (88) 98 03/01/19 03:30 113 25 97/56 (70) 98 03/01/19 03:15 113 21 110/63 (79) 98 03/01/19 03:00 111 30 99 03/01/19 03:00 118/63 03/01/19 02:52 113 16 35 03/01/19 02:45 111 19 122/72 (89) 98 03/01/19 02:30 108 17 107/62 (77) 98 03/01/19 02:15 108 21 111/64 (80) 98 03/01/19 02:00 109 22 118/65 (82) 98 03/01/19 02:00 107/62 03/01/19 01:45 111 19 111/64 (80) 98 03/01/19 01:30 111 19 107/65 (79) 98 03/01/19 01:15 112 21 118/74 (89) 99 03/01/19 01:00 112 16 124/68 (86) 96 03/01/19 01:00 118/74 03/01/19 00:58 112 18 35 03/01/19 00:45 104 17 107/64 (78) 99 03/01/19 00:30 106 16 112/64 (80) 100 03/01/19 00:15 106 17 105/62 (76) 99 03/01/19 00:00 98.5 105 17 99/58 (72) 99 03/01/19 00:00 107 03/01/19 00:00 Mechanical Ventilator 03/01/19 00:00 105/62 02/28/19 23:45 107 16 102/56 (71) 99 02/28/19 23:30 103 19 105/63 (77) 99 02/28/19 23:15 103 16 108/59 (75) 99 02/28/19 23:00 106/59 02/28/19 23:00 105 16 102/57 (72) 99 02/28/19 22:45 102 16 104/59 (74) 99 02/28/19 22:39 105 16 35 02/28/19 22:30 96 16 105/58 (74) 99 02/28/19 22:15 100 16 103/55 (71) 99 02/28/19 22:00 102 16 106/59 (75) 99 02/28/19 22:00 103/55 02/28/19 21:45 102 18 106/62 (77) 99 02/28/19 21:30 103 16 104/60 (75) 99 02/28/19 21:15 100 16 101/54 (70) 99 02/28/19 21:00 103 16 105/56 (72) 100 02/28/19 21:00 101/54 02/28/19 20:56 107 16 35 02/28/19 20:45 113 21 111/68 (82) 99 02/28/19 20:30 105 16 111/63 (79) 99 02/28/19 20:15 105 15 102/69 (80) 99 02/28/19 20:00 35 02/28/19 20:00 104 02/28/19 20:00 Mechanical Ventilator 02/28/19 20:00 102/69 02/28/19 20:00 107 16 103/64 (77) 99 02/28/19 19:45 105 16 113/51 (71) 99 02/28/19 19:30 107 18 112/64 (80) 99 02/28/19 19:00 98 16 117/57 (77) 02/28/19 19:00 110/62 02/28/19 18:55 102 16 35 02/28/19 18:30 90 16 119/64 (82) 99 02/28/19 18:00 96 16 112/58 (76) 100 02/28/19 18:00 119/64 02/28/19 17:29 102 18 119/65 (83) 99 02/28/19 17:00 100 16 106/64 (78) 100 02/28/19 17:00 106/64 02/28/19 16:32 106 16 35 02/28/19 16:30 98.7 111 18 104/66 (79) 99 02/28/19 16:00 109 18 111/56 (74) 98 02/28/19 16:00 35 02/28/19 16:00 107 02/28/19 16:00 Mechanical Ventilator 02/28/19 16:00 108/64 02/28/19 15:30 110 16 108/62 (77) 98 02/28/19 15:00 108/59 02/28/19 15:00 111 16 108/59 (75) 98 02/28/19 15:00 107 16 35 Intake and Output 02/28/19 03/01/19 19:00 07:00 Intake Total 1460.00 ml 861.70 ml Output Total 570 ml 410 ml Balance 890.00 ml 451.70 ml Free Water 100 ml 100 ml IV Total 710.00 ml 161.70 ml Tube Feeding 650 ml 600 ml Output Urine Total 570 ml 410 ml Laboratory Tests 03/01/19 04:04: Phosphorus Level 3.1 03/01/19 04:05: White Blood Count 16.8H, Red Blood Count 2.52L, Hemoglobin 8.3L, Hematocrit 26.2L, Mean Corpuscular Volume 104H, Mean Corpuscular Hemoglobin 32.9H, Mean Corpuscular Hemoglobin Concent 31.7L, Red Cell Distribution Width 18.7H, Platelet Count 99L, Mean Platelet Volume 8.1, Neutrophils (%) (Auto) , Lymphocytes (%) (Auto) , Monocytes (%) (Auto) , Eosinophils (%) (Auto) , Basophils (%) (Auto) , Differential Total Cells Counted 100, Neutrophils % ( Manual) 95H, Lymphocytes % (Manual) 3L, Monocytes % (Manual) 0L, Eosinophils % ( Manual) 1, Basophils % (Manual) 0, Band Neutrophils 1, Platelet Estimate DecreasedL, Platelet Morphology Normal, Hypochromasia 1+, Anisocytosis 2+, Macrocytosis 2+, Sodium Level 142, Potassium Level 5.2H, Chloride Level 112H, Carbon Dioxide Level 26, Anion Gap 4L, Blood Urea Nitrogen 30H, Creatinine 1.1, Estimat Glomerular Filtration Rate , Glucose Level 178H, Calcium Level 7.6L, Magnesium Level 1.6L, Total Bilirubin 1.8H, Direct Bilirubin 1.4H, Aspartate Amino Transf (AST/SGOT) 107H, Alanine Aminotransferase (ALT/SGPT) 63, Alkaline Phosphatase 181H, Total Protein 5.5L, Albumin 1.6L, Globulin 3.9, Albumin/ Globulin Ratio 0.4L Height (Feet): 5 Height (Inches): 6.00 Weight (Pounds): 154 General Appearance: no apparent distress Cardiovascular: tachycardia Respiratory/Chest: decreased breath sounds Abdomen: distended Objective no change Jt Louis MD Mar 01, 2019 14:50
--- NOTE | 2019-03-01 14:54 | NUR ---
NURSE NOTES: PATIENT KEPT CLEAN AND DRY. WILL CONTINUE TO MONITOR.
--- NOTE | 2019-03-01 17:00 | NUR ---
NURSE NOTES: PATIENT KEPT CLEAN AND DRY. NO SIGNS OF DISTRESS. WILL CONTINUE TO MONITOR.
--- NOTE | 2019-03-01 17:58 | Surgery Progress Note ---
Surgery Progress Note Subjective Additional Comments labs noted exam stable ill appearing Objective Last 24 Hour Vital Signs Date Time Temp Pulse Resp B/P (MAP) Pulse Ox O2 Delivery O2 Flow Rate FiO2 03/01/19 17:17 92 16 35 03/01/19 17:00 92 0 94/57 (69) 03/01/19 16:45 95 7 87/51 (63) 03/01/19 16:30 95 11 93/51 (65) 03/01/19 16:15 97 15 90/52 (65) 03/01/19 16:00 Mechanical Ventilator 03/01/19 16:00 98.6 99 19 92/57 (69) 100 03/01/19 16:00 35 03/01/19 16:00 102 03/01/19 16:00 92/57 03/01/19 15:30 108 22 110/61 (77) 100 03/01/19 15:00 91/50 03/01/19 15:00 102 17 91/50 (64) 100 03/01/19 14:57 108 16 35 03/01/19 14:30 107 19 104/67 (79) 100 03/01/19 14:00 104 19 103/62 (76) 100 03/01/19 14:00 103/62 03/01/19 13:30 102 17 99/57 (71) 100 03/01/19 13:00 92/57 03/01/19 13:00 97 17 92/57 (69) 99 03/01/19 12:47 121 25 35 03/01/19 12:30 105 19 98/55 (69) 100 03/01/19 12:00 106 03/01/19 12:00 98.6 107 20 96/56 (69) 100 03/01/19 12:00 96/56 03/01/19 12:00 35 03/01/19 12:00 Mechanical Ventilator 03/01/19 11:45 104 19 97/59 (72) 100 03/01/19 11:30 100 16 94/54 (67) 03/01/19 11:15 103 18 91/46 (61) 98 03/01/19 11:00 91/55 03/01/19 11:00 104 20 91/55 (67) 100 03/01/19 10:58 97 16 35 03/01/19 10:30 102 16 114/58 (76) 100 03/01/19 10:00 108 18 102/56 (71) 99 03/01/19 10:00 98/59 03/01/19 09:30 110 18 96/62 (73) 99 03/01/19 09:01 122 21 35 03/01/19 09:00 103/67 03/01/19 09:00 129 24 132/90 (104) 99 03/01/19 08:58 97 03/01/19 08:47 95/60 03/01/19 08:30 110 18 113/72 (86) 99 03/01/19 08:00 99.2 107 20 97/58 (71) 99 03/01/19 08:00 35 03/01/19 08:00 105 03/01/19 08:00 Mechanical Ventilator 03/01/19 07:30 106 24 117/67 (84) 99 03/01/19 07:28 109 16 35 03/01/19 07:15 110 21 110/63 (79) 98 03/01/19 07:00 102 5 99/52 (68) 99 03/01/19 07:00 110/63 03/01/19 06:45 108 20 107/60 (76) 98 03/01/19 06:45 108 20 107/60 (76) 98 03/01/19 06:30 106 2 101/57 (72) 98 03/01/19 06:15 104 9 101/54 (70) 98 03/01/19 06:00 100 0 98/56 (70) 100 03/01/19 06:00 101/64 03/01/19 05:45 108 22 109/62 (78) 98 03/01/19 05:30 103 1 91/56 (68) 99 03/01/19 05:15 105 17 102/57 (72) 99 03/01/19 05:07 109 16 35 03/01/19 05:00 105 10 98/53 (68) 99 03/01/19 05:00 102/57 03/01/19 04:45 108 17 93/51 (65) 99 03/01/19 04:30 118 21 106/59 (75) 99 03/01/19 04:15 121 28 115/78 (90) 99 03/01/19 04:00 98.8 132 25 132/89 (103) 99 03/01/19 04:00 106 03/01/19 04:00 106/59 03/01/19 04:00 Mechanical Ventilator 03/01/19 04:00 35 03/01/19 03:45 115 25 109/78 (88) 98 03/01/19 03:30 113 25 97/56 (70) 98 03/01/19 03:15 113 21 110/63 (79) 98 03/01/19 03:00 111 30 99 03/01/19 03:00 118/63 03/01/19 02:52 113 16 35 03/01/19 02:45 111 19 122/72 (89) 98 03/01/19 02:30 108 17 107/62 (77) 98 03/01/19 02:15 108 21 111/64 (80) 98 03/01/19 02:00 109 22 118/65 (82) 98 03/01/19 02:00 107/62 03/01/19 01:45 111 19 111/64 (80) 98 03/01/19 01:30 111 19 107/65 (79) 98 03/01/19 01:15 112 21 118/74 (89) 99 03/01/19 01:00 112 16 124/68 (86) 96 03/01/19 01:00 118/74 03/01/19 00:58 112 18 35 03/01/19 00:45 104 17 107/64 (78) 99 03/01/19 00:30 106 16 112/64 (80) 100 03/01/19 00:15 106 17 105/62 (76) 99 03/01/19 00:00 98.5 105 17 99/58 (72) 99 03/01/19 00:00 107 03/01/19 00:00 Mechanical Ventilator 03/01/19 00:00 105/62 02/28/19 23:45 107 16 102/56 (71) 99 02/28/19 23:30 103 19 105/63 (77) 99 02/28/19 23:15 103 16 108/59 (75) 99 02/28/19 23:00 106/59 02/28/19 23:00 105 16 102/57 (72) 99 02/28/19 22:45 102 16 104/59 (74) 99 02/28/19 22:39 105 16 35 02/28/19 22:30 96 16 105/58 (74) 99 02/28/19 22:15 100 16 103/55 (71) 99 02/28/19 22:00 102 16 106/59 (75) 99 19 22:00 103/55 02/28/19 21:45 102 18 106/62 (77) 99 02/28/19 21:30 103 16 104/60 (75) 99 02/28/19 21:15 100 16 101/54 (70) 99 02/28/19 21:00 103 16 105/56 (72) 100 02/28/19 21:00 101/54 02/28/19 20:56 107 16 35 02/28/19 20:45 113 21 111/68 (82) 99 02/28/19 20:30 105 16 111/63 (79) 99 02/28/19 20:15 105 15 102/69 (80) 99 02/28/19 20:00 35 02/28/19 20:00 104 02/28/19 20:00 Mechanical Ventilator 02/28/19 20:00 102/69 02/28/19 20:00 107 16 103/64 (77) 99 02/28/19 19:45 105 16 113/51 (71) 99 02/28/19 19:30 107 18 112/64 (80) 99 02/28/19 19:00 98 16 117/57 (77) 02/28/19 19:00 110/62 02/28/19 18:55 102 16 35 02/28/19 18:30 90 16 119/64 (82) 99 02/28/19 18:00 96 16 112/58 (76) 100 02/28/19 18:00 119/64 I&O Intake and Output 02/28/19 03/01/19 19:00 07:00 Intake Total 1460.00 ml 861.70 ml Output Total 570 ml 410 ml Balance 890.00 ml 451.70 ml Free Water 100 ml 100 ml IV Total 710.00 ml 161.70 ml Tube Feeding 650 ml 600 ml Output Urine Total 570 ml 410 ml Dressing: other Wound: other Drains: other Cardiovascular: RSR Respiratory: decreased breath sounds Abdomen: soft, non-distended, decreased bowel sounds Extremities: cyanosis, no tenderness, other Laboratory Tests Test 03/01/19 04:04 03/01/19 04:05 Phosphorus Level 3.1 MG/DL (2.5-4.9) White Blood Count 16.8 K/UL (4.8-10.8) H Red Blood Count 2.52 M/UL (4.20-5.40) L Hemoglobin 8.3 G/DL (12.0-16.0) L Hematocrit 26.2 % (37.0-47.0) L Mean Corpuscular Volume 104 FL (80-99) H Mean Corpuscular Hemoglobin 32.9 PG (27.0-31.0) H Mean Corpuscular Hemoglobin Concent 31.7 G/DL (32.0-36.0) L Red Cell Distribution Width 18.7 % (11.6-14.8) H Platelet Count 99 K/UL (150-450) L Mean Platelet Volume 8.1 FL (6.5-10.1) Neutrophils (%) (Auto) % (45.0-75.0) Lymphocytes (%) (Auto) % (20.0-45.0) Monocytes (%) (Auto) % (1.0-10.0) Eosinophils (%) (Auto) % (0.0-3.0) Basophils (%) (Auto) % (0.0-2.0) Differential Total Cells Counted 100 Neutrophils % (Manual) 95 % (45-75) H Lymphocytes % (Manual) 3 % (20-45) L Monocytes % (Manual) 0 % (1-10) L Eosinophils % (Manual) 1 % (0-3) Basophils % (Manual) 0 % (0-2) Band Neutrophils 1 % (0-8) Platelet Estimate Decreased L Platelet Morphology Normal Hypochromasia 1+ Anisocytosis 2+ Macrocytosis 2+ Sodium Level 142 MMOL/L (136-145) Potassium Level 5.2 MMOL/L (3.5-5.1) H Chloride Level 112 MMOL/L (98-107) H Carbon Dioxide Level 26 MMOL/L (21-32) Anion Gap 4 mmol/L (5-15) L Blood Urea Nitrogen 30 mg/dL (7-18) H Creatinine 1.1 MG/DL (0.55-1.30) Estimat Glomerular Filtration Rate mL/min (>60) Glucose Level 178 MG/DL (74-106) H Calcium Level 7.6 MG/DL (8.5-10.1) L Magnesium Level 1.6 MG/DL (1.8-2.4) L Total Bilirubin 1.8 MG/DL (0.2-1.0) H Direct Bilirubin 1.4 MG/DL (0.0-0.3) H Aspartate Amino Transf (AST/SGOT) 107 U/L (15-37) H Alanine Aminotransferase (ALT/SGPT) 63 U/L (12-78) Alkaline Phosphatase 181 U/L (46-116) H Total Protein 5.5 G/DL (6.4-8.2) L Albumin 1.6 G/DL (3.4-5.0) L Globulin 3.9 g/dL Albumin/Globulin Ratio 0.4 (1.0-2.7) L Plan Problems: (1) Septic shock Assessment & Plan: 78-year-old female in septic shock in the intensive care unit on pressors. Leukocytosis, anemia, abnormal labs. Tachycardic. On respiratory support. On examination patient identified to have slowed capillary refill in the distal extremities. Patient furthermore identified to have a weeping wound in the right great toe. Patient is currently very ill and septic and requiring pressors. Unfortunately given her medical condition comorbidities and history there is potential for distal vasoconstriction and potentially even necrosis of the distal aspects but further life-saving measures pressors currently required and necessary and indicated. wound re-evaluated. necrotic epidermal tissue sloth off but underlying tissues with backbleeding. motor noted spont in foot and toes We will continue to monitor extremities and evaluate them. Will wean off pressors as possible. Lactic acidosis improving. Continue IV antibiotics Wean pressors prognosis guarded labs worsening Appreciate ICU care and management We will follow with recommendations (2) Abdominal pain Assessment & Plan: Chronic liver disease/cirrhosis with signs of portal hypertension including moderate ascites and hepatofugal flow in the portal vein. Gallbladder wall edema nonspecific Bilateral pleural effusions. Medical renal disease Findings: There is extensive artifact from the patient's arms limiting evaluation. Oral contrast was given. Gastrostomy tube is noted in good position. There are small bilateral pleural effusions present with adjacent ill-defined parenchymal density either atelectasis or pneumonia. Correlate clinically. Small pericardial effusion is present and there is generalized cardiomegaly present. Hiatal hernia noted. Aorta and coronary artery calcification present. Mild ascites is demonstrated. No compelling evidence for bowel obstruction. There is extensive diverticulosis involving the colon without obvious diverticulitis. Generalized anasarca noted. The appendix is not seen. The kidneys show no obvious hydronephrosis. The right kidney appears atrophic. There is a suggestion of cysts within the right kidney but this is grossly limited in terms of visualization. The gallbladder is demonstrated. The rectum appears low in location suggestive of prolapse and with a moderate degree of fecal retention. IMPRESSION: Limited evaluation due to artifact. Mild to moderate ascites Trace bilateral pleural effusions. Basilar atelectasis and/or infiltrate. Trace pericardial effusion Generalized cardiomegaly. Atherosclerotic vascular disease Extensive diverticulosis of the colon. No definite diverticulitis. Anasarca Gross catheter Query rectal prolapse (3) Severe sepsis Tristan Heller Mar 01, 2019 17:58
--- NOTE | 2019-03-01 19:16 | NUR ---
HAND-OFF: Report given to Catalina Diaz RN.
--- NOTE | 2019-03-01 20:00 | NUR ---
NURSE NOTES: RECEIVED PATIENT FROM ANDREINA WILLIAMSON. PATIENT IS LYING IN BED, AWAKE. HOOKED TO IRON CARRIER. ORALLY INTUBATED, SIZE 7 AT 22CM LIP LINE. VENT SETTINGS OF AC 16, VT 500, FiO2 35%, PEEP 5. NO SIGNS OF DISTRESS OF THE MOMENT. GT NOTED WITH GTF VITAL AF AT 50ML/HR. RECTAL TUBE CONNECTED TO BAG DRAINING BY GRAVITY. HATFIELD NOTED, DRAINING YELLOW URINE. SKIN ALTERATION NOTED. ON P200 MATTRESS. L UA PICC DRESSING IS DRY AND INTACT. CALL LIGHT WITHIN REACH. BED AT LOWEST POSITION. SIDE RAILS UP. WILL CONTINUE TO MONITOR.
[2019-03-01] MEDS: Dyna-Hex 2% Top Sol 2oz TOPIC SCH (20:25)
--- NOTE | 2019-03-01 22:00 | NUR ---
NURSE NOTES: All due medications given. Patient repositioned and oral care performed. BP is 97/52. Patients HR can go into the 120s afib rhythm and but eventually HR will come down to baseline in the low 100s high 90s Afib rhythm, this will last about less than 1 minute.
[2019-03-02] VITALS (61 sets, daily range): BP systolic 69–148; BP diastolic 48–94
--- NOTE | 2019-03-02 | NUR ---
NURSE NOTES: Patient repositioned and oral care was provided. Blood pressure remains stable and no acute distress at this time. REctal tube remains patent and draining liquid diarrhea. Afib Rhythm 102-110
--- NOTE | 2019-03-02 02:00 | NUR ---
NURSE NOTES: Patient continues to maintain good blood pressure. HR in the low 100s Afib rhythm. Patient was repositioned and given oral care. No acute distress, no fevers, other vitals signs remains stable. Patient is awake and able to track with pen well. Will continue to monitor.
--- NOTE | 2019-03-02 04:00 | NUR ---
NURSE NOTES: Patient cleaned and repositioned, blood drawn and sent to lab. Patient suctioned and given oral care. Blood pressure stable at 93/57 and HR is 110 Afib rhythm0. No temperature at this time. Will continue to monitor.
--- NOTE | 2019-03-02 05:30 | Progress Note ---
DATE: 03/01/2019 SUBJECTIVE: The patient remains intubated on pressor support, which is being tapered. OBJECTIVE: VITAL SIGNS: Blood pressure in the range of 100 systolic, heart rate in the low 100. Sinus tachycardia noted. LUNGS: Thin trach secretions. Bilateral rhonchi. CARDIAC: Regular rhythm. Rapid rate. Normal S1, S2. ABDOMEN: Soft. EXTREMITIES: 2+ dependent edema. LABORATORY DATA: White count 16.8, hemoglobin 8.3. Sodium 142, potassium 5.2, bicarb 26, BUN 30, creatinine 1.1. Magnesium 1.6. Albumin 1.6. Venous duplex scan was negative for lower extremity DVT. IMPRESSION: 1. Profound sepsis with shock. 2. 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 3. Cirrhosis. 4. Respiratory failure. 5. Possible pulmonary emboli. 6. Healthcare-acquired pneumonia. 7. Remains critical and guarded. PLAN: 1. Wean off pressors. 2. Wean off ventilator. 3. Antimicrobials. 4. Respiratory hygiene. 5. IV magnesium. 6. Consider V/Q scan. 7. Diuresis to be considered once hemodynamically stable. Jimmie Mason M.D. DR: KARSON JOB#: [id number] CC: CHRISTINE
--- NOTE | 2019-03-02 06:27 | NUR ---
NURSE NOTES: pt awake tolerating tube feeding reposition and suction
--- NOTE | 2019-03-02 07:00 | NUR ---
RESPIRATORY NOTE: Received pt on ETT 7.0 @22cm lip line, secured by anchor fast, with current vent settings: AC 16-500ml-35%- peep of 5. Pt is awake, alert, able to follow simple commands. No SOB or resp distress noted at this time. Vent is plugged into the red outlet, alarms are set and audible, ambu bag is at bedside. Will attempt to wean pt in the next vent check. Will continue to monitor pt.
--- NOTE | 2019-03-02 07:07 | General Progress Note ---
Assessment/Plan Problem List: (1) Septic shock ICD Codes: A41.9 - Sepsis, unspecified organism; R65.21 - Severe sepsis with septic shock SNOMED: 68530550 (2) UTI (urinary tract infection) ICD Codes: N39.0 - Urinary tract infection, site not specified SNOMED: 53949411 Qualifiers: Qualified Codes: N39.0 - Urinary tract infection, site not specified (3) Renal failure ICD Codes: N19 - Unspecified kidney failure SNOMED: 84154526 Qualifiers: Qualified Codes: N17.9 - Acute kidney failure, unspecified (4) Abdominal pain ICD Codes: R10.9 - Unspecified abdominal pain SNOMED: 77637710 Qualifiers: Qualified Codes: R10.32 - Left lower quadrant pain (5) Severe sepsis ICD Codes: A41.9 - Sepsis, unspecified organism; R65.20 - Severe sepsis without septic shock SNOMED: 92197111 (6) Dehydration ICD Codes: E86.0 - Dehydration SNOMED: 71041462 (7) Atrial fibrillation with rapid ventricular response ICD Codes: I48.91 - Unspecified atrial fibrillation SNOMED: 762000693890990 Status: stable, not improved, deteriorating Assessment/Plan: cont supportive care wean vent as able hope to avoid trach resp rx and suctioning as needed monitor labs scd iv abx per id tube feeds Subjective ROS Limited/Unobtainable: Yes Constitutional: Reports: malaise, weakness HEENT: Reports: no symptoms Cardiovascular: Reports: no symptoms Respiratory: Reports: shortness of breath, sputum Gastrointestinal/Abdominal: Reports: difficulty swallowing Genitourinary: Reports: no symptoms Neurologic/Psychiatric: Reports: no symptoms Endocrine: Reports: no symptoms Hematologic/Lymphatic: Reports: anemia Allergies: Coded Allergies: No Known Allergies (Unverified , 02/19/19) All Systems: reviewed and negative except above Subjective no events. off pressors. no fevers. labs pending. failed wean yesterday Objective Last 24 Hour Vital Signs Date Time Temp Pulse Resp B/P (MAP) Pulse Ox O2 Delivery O2 Flow Rate FiO2 03/02/19 06:00 111 16 90/53 (65) 100 03/02/19 05:15 107 17 35 03/02/19 05:00 112 24 101/56 (71) 100 03/02/19 04:45 107 14 99/56 (70) 100 03/02/19 04:30 112 23 99/57 (71) 100 03/02/19 04:15 115 21 98/59 (72) 100 03/02/19 04:00 35 03/02/19 04:00 Mechanical Ventilator 03/02/19 04:00 105 03/02/19 04:00 99.5 125 24 122/89 (100) 100 03/02/19 03:30 102 20 35 03/02/19 03:00 115 22 100/59 (73) 100 03/02/19 02:00 115 20 99/68 (78) 100 03/02/19 01:30 108 21 35 03/02/19 01:04 100 03/02/19 00:00 Mechanical Ventilator 03/02/19 00:00 98.5 108 23 102/63 (76) 100 108 03/01/19 23:00 123 23 121/85 (97) 100 109 03/01/19 22:47 114 17 35 03/01/19 22:00 102 21 93/55 (68) 100 103 03/01/19 21:30 97 18 35 03/01/19 21:00 101 19 103/60 (74) 100 104 03/01/19 20:00 98.8 102 22 98/53 (68) 100 03/01/19 20:00 Mechanical Ventilator 03/01/19 20:00 35 03/01/19 20:00 102 03/01/19 19:30 99 18 35 03/01/19 19:00 100 17 97/60 (72) 100 03/01/19 18:00 101 23 92/55 (67) 100 03/01/19 17:17 92 16 35 03/01/19 17:00 92 0 94/57 (69) 03/01/19 16:45 95 7 87/51 (63) 03/01/19 16:30 95 11 93/51 (65) 03/01/19 16:15 97 15 90/52 (65) 03/01/19 16:00 Mechanical Ventilator 03/01/19 16:00 98.6 99 19 92/57 (69) 100 03/01/19 16:00 35 03/01/19 16:00 102 03/01/19 16:00 92/57 03/01/19 15:30 108 22 110/61 (77) 100 03/01/19 15:00 91/50 03/01/19 15:00 102 17 91/50 (64) 100 03/01/19 14:57 108 16 35 03/01/19 14:30 107 19 104/67 (79) 100 03/01/19 14:00 104 19 103/62 (76) 100 03/01/19 14:00 103/62 03/01/19 13:30 102 17 99/57 (71) 100 03/01/19 13:00 92/57 03/01/19 13:00 97 17 92/57 (69) 99 03/01/19 12:47 121 25 35 03/01/19 12:30 105 19 98/55 (69) 100 03/01/19 12:00 106 03/01/19 12:00 98.6 107 20 96/56 (69) 100 03/01/19 12:00 96/56 03/01/19 12:00 35 03/01/19 12:00 Mechanical Ventilator 03/01/19 11:45 104 19 97/59 (72) 100 03/01/19 11:30 100 16 94/54 (67) 03/01/19 11:15 103 18 91/46 (61) 98 03/01/19 11:00 91/55 03/01/19 11:00 104 20 91/55 (67) 100 03/01/19 10:58 97 16 35 03/01/19 10:30 102 16 114/58 (76) 100 03/01/19 10:00 108 18 102/56 (71) 99 03/01/19 10:00 98/59 03/01/19 09:30 110 18 96/62 (73) 99 03/01/19 09:01 122 21 35 03/01/19 09:00 103/67 03/01/19 09:00 129 24 132/90 (104) 99 03/01/19 08:58 97 03/01/19 08:47 95/60 03/01/19 08:30 110 18 113/72 (86) 99 03/01/19 08:00 99.2 107 20 97/58 (71) 99 03/01/19 08:00 35 03/01/19 08:00 105 03/01/19 08:00 Mechanical Ventilator 03/01/19 07:30 106 24 117/67 (84) 99 03/01/19 07:28 109 16 35 03/01/19 07:15 110 21 110/63 (79) 98 Intake and Output 03/01/19 03/02/19 19:00 07:00 Intake Total 1993.25 ml 650 ml Output Total 380 ml 410 ml Balance 1613.25 ml 240 ml Free Water 150 ml 100 ml IV Total 1243.25 ml Tube Feeding 600 ml 550 ml Output Urine Total 380 ml 410 ml # Bowel Movements 50 50 Height (Feet): 5 Height (Inches): 6.00 Weight (Pounds): 156 Objective General Appearance: WD/WN, confused. more responsive, orally intubated Neck: supple Cardiovascular: irregularly irregular Respiratory/Chest: chest wall non-tender, lungs clear, normal breath sounds, no respiratory distress Abdomen: normal bowel sounds, non tender, soft, no organomegaly Edema: no edema noted Arm (L), no edema noted Arm (R), no edema noted Leg (L), no edema noted Leg (R), no edema noted Pedal (L), no edema noted Pedal (R), no edema noted Generalized Neurologic: disoriented Mitchel Reis MD Mar 02, 2019 07:07
--- NOTE | 2019-03-02 07:28 | NUR ---
HAND-OFF: Report given to hiedi rn using sbar.
--- NOTE | 2019-03-02 07:29 | NUR ---
NURSE NOTES: Received patient from ANDREINA Bhagat. Patient eyes open. patient shakes head yes and no for simple questions. Patient on bilateral soft wrist restraints for impulsivity. Patient denies pain or acute distress. Patient alert to name. patient showing atrial fibrillation on the electrical prospecting observer at this time with rate of 108 beats per minute. Temp 99.7. Blankets removed at this time. Will follow up. Patient orally intubated with ETT 7.0 and 22cm at the lip line. Ventilator setting AC 16, tidal volume 500, FIO2 35%, and PEEP 5. Patient reported to have failed weaning the past few days. Will follow up with weaning trial this morning. Patient has gastrostomy tube that is patent, asymptomatic, and running Vital AF at 50mL/hr at this time with no residual noted. Patient has rectal tube with light brown thin liquid stool noted. Patient has martinez for urine retention that is patent and draining straw yellow urine at this time. Patient bilateral upper arm pitting edema +4 and weeping. patient has left heel DTI and perineal redness. Patient has left upper arm PICC line that is patent, asymptomatic, and saline locked at this time. Bed in low position with bed alarm on and call light in reach at this time.
[2019-03-02] MEDS: Pantoprazole Inj IVP SCH ×2 (08:46→21:32)
--- NOTE | 2019-03-02 08:56 | NUR ---
RESPIRATORY NOTE: Attempted to wean pt on CPAP PS 10, 35%FiO2- peep 5 at 0850. Pt was tolerating well first couple minutes, then started breathing faster, RR>35bpm, HR increased to >120bpm. Instructed pt several times to slow down breathing, take a nice deep breath. Breathing with the pt to help pt calm down. Pt was calm down for a little bit then start struggling taking breaths. Pt started getting resp distress, HR >130bpm, RR >35bpm. Placed pt back on AC mode with the same settings. ANDREINA Wilkins at bedside and aware. Will try again later.
[2019-03-02] MEDS: Norepinephrine Bitartrate 16 MG in D5W 500ml 484 ML IV SCH (09:23)
[2019-03-02 09:26] LABS: HEMOGLOBIN 7.2 G/DL (12.0-16.0); MEAN CORPUSCULAR VOLUME 104 FL (80-99); PLATELET COUNT 70 K/UL (150-450); RED BLOOD COUNT 2.22 M/UL (4.20-5.40); RED CELL DISTRIBUTION WIDTH 18.9 % (11.6-14.8); WHITE BLOOD COUNT 12.4 K/UL (4.8-10.8)
[2019-03-02 09:34] LABS: ANION GAP -2 mmol/L (5-15); BLOOD UREA NITROGEN 29 mg/dL (7-18); CALCIUM 7.5 MG/DL (8.5-10.1); CARBON DIOXIDE 30 MMOL/L (21-32); CHLORIDE 113 MMOL/L (98-107); CREATININE 1.1 MG/DL (0.55-1.30); POTASSIUM 4.9 MMOL/L (3.5-5.1); SODIUM 141 MMOL/L (136-145)
[2019-03-02 09:45] LABS: ALANINE AMINOTRANSFERASE 63 U/L (12-78); ALBUMIN 1.7 G/DL (3.4-5.0); ALBUMIN/GLOBULIN RATIO 0.5 (1.0-2.7); ALKALINE PHOSPHATASE 174 U/L (46-116); ASPARTATE AMINO TRANSFERASE 100 U/L (15-37); BILIRUBIN,TOTAL 2.1 MG/DL (0.2-1.0); PHOSPHORUS 2.2 MG/DL (2.5-4.9)
--- NOTE | 2019-03-02 09:58 | NUR ---
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 * Increased kcal/prot needs R/T sepsis as evidenced by elev wbc, febrile, elev RR -> wnl, elev HR, elev LA (11.8 -> 2.2 trend down), hypotensive, on pressor support. ENTERAL NUTRITION RECOMMENDATIONS: Vital AF 1.2 @ 50ml/hr x 24 hrs to provide 1050ml, 1260kcal, 78g prot, 851ml free water * WITH HEMODYNAMIC STABILITY -> initiate Vital AF 1.2 @ 20ml/hr x 6 hrs, advance 10ml q 4-6 hrs as tolerated to goal rate -> HOB over 30 degrees/ water flush per MD * WITHOUT HEMODYNAMIC STABILITY -> rec trophic feeds of Vital AF 1.2 @ 10ml/hr x 24 hrs ADDITIONAL RECOMMENDATIONS: * RECALIBRATED BEDSCALE WT Per SNF, HT=65", PR=845iwl (02/14/19) VS [facility] mg=311ejr * Monitor hemodynamic stability: pressor support restarted * Monitor lytes closely, replete as needed- phos low * When able to feeds at goal add CATHERINE BID + Vit C 250mg qd for wound care . .
--- NOTE | 2019-03-02 10:00 | NUR ---
*-* INSURANCE *-* ALL CLINICALS AND REVIEWS HAVE BEEN FAXED TO: MARGARITA Clement Ref#[id number] CM: Dung #[phone] ext [phone] fax#[phone]
--- NOTE | 2019-03-02 10:05 | NUR ---
NURSE NOTES: Patient systolic blood pressure in the 80s at this time. Levophed restarted at 2mcg/min. Will continue to monitor. Temperature 100 at this time. Cooling measures applied. Will continue to monitor. Addendum: 03/02/19 at 1020 by Grecia Prieto RN Dr Howell stated that the patient does not need C.diff. stool test done at this time. Order cancelled.
[2019-03-02 10:31] LABS: BILIRUBIN,DIRECT 1.5 MG/DL (0.0-0.3)
--- NOTE | 2019-03-02 10:40 | Infectious Diseases Prog Note ---
Assessment/Plan Assessment/Plan antibiotics ; levoquin A 1. pneumonia s/p rx 2. fungal UTI s/p rx 3. renal failure 4. septic shock 5. CHF 6. dementia 7. thrombocytopenia P 1. continue po levoquin 2 more days 2. will follow up cultures Subjective ROS Limited/Unobtainable: Yes Allergies: Coded Allergies: No Known Allergies (Unverified , 02/19/19) Objective Vital Signs Last 24 Hour Vital Signs Date Time Temp Pulse Resp B/P (MAP) Pulse Ox O2 Delivery O2 Flow Rate FiO2 03/02/19 10:15 113 20 96/59 (71) 100 03/02/19 10:00 101/71 03/02/19 10:00 113 21 101/71 (81) 100 03/02/19 09:45 113 25 93/52 (66) 100 03/02/19 09:30 110 17 87/51 (63) 99 03/02/19 09:23 83/57 03/02/19 09:00 111 28 88/53 (65) 100 03/02/19 09:00 105 03/02/19 08:56 100 03/02/19 08:56 123 22 35 03/02/19 08:00 Mechanical Ventilator 03/02/19 08:00 99.7 101 16 86/48 (61) 03/02/19 08:00 35 03/02/19 07:00 106 18 35 03/02/19 07:00 106 18 100 Mechanical Ventilator 35 03/02/19 07:00 111 16 90/53 (65) 100 03/02/19 06:00 111 16 90/53 (65) 100 03/02/19 05:15 107 17 35 03/02/19 05:00 112 24 101/56 (71) 100 03/02/19 04:45 107 14 99/56 (70) 100 03/02/19 04:30 112 23 99/57 (71) 100 03/02/19 04:15 115 21 98/59 (72) 100 03/02/19 04:00 35 03/02/19 04:00 Mechanical Ventilator 03/02/19 04:00 105 03/02/19 04:00 99.5 125 24 122/89 (100) 100 03/02/19 03:30 102 20 35 03/02/19 03:00 115 22 100/59 (73) 100 03/02/19 02:00 115 20 99/68 (78) 100 03/02/19 01:30 108 21 35 03/02/19 01:04 100 03/02/19 00:00 Mechanical Ventilator 03/02/19 00:00 98.5 108 23 102/63 (76) 100 108 03/01/19 23:00 123 23 121/85 (97) 100 109 03/01/19 22:47 114 17 35 03/01/19 22:00 102 21 93/55 (68) 100 103 03/01/19 21:30 97 18 35 03/01/19 21:00 101 19 103/60 (74) 100 104 03/01/19 20:00 98.8 102 22 98/53 (68) 100 03/01/19 20:00 Mechanical Ventilator 03/01/19 20:00 35 03/01/19 20:00 102 03/01/19 19:30 99 18 35 03/01/19 19:00 100 17 97/60 (72) 100 03/01/19 18:00 101 23 92/55 (67) 100 03/01/19 17:17 92 16 35 03/01/19 17:00 92 0 94/57 (69) 03/01/19 16:45 95 7 87/51 (63) 03/01/19 16:30 95 11 93/51 (65) 03/01/19 16:15 97 15 90/52 (65) 03/01/19 16:00 Mechanical Ventilator 03/01/19 16:00 98.6 99 19 92/57 (69) 100 03/01/19 16:00 35 03/01/19 16:00 102 03/01/19 16:00 92/57 03/01/19 15:30 108 22 110/61 (77) 100 03/01/19 15:00 91/50 03/01/19 15:00 102 17 91/50 (64) 100 03/01/19 14:57 108 16 35 03/01/19 14:30 107 19 104/67 (79) 100 03/01/19 14:00 104 19 103/62 (76) 100 03/01/19 14:00 103/62 03/01/19 13:30 102 17 99/57 (71) 100 03/01/19 13:00 92/57 03/01/19 13:00 97 17 92/57 (69) 99 03/01/19 12:47 121 25 35 03/01/19 12:30 105 19 98/55 (69) 100 03/01/19 12:00 106 03/01/19 12:00 98.6 107 20 96/56 (69) 100 03/01/19 12:00 96/56 03/01/19 12:00 35 03/01/19 12:00 Mechanical Ventilator 03/01/19 11:45 104 19 97/59 (72) 100 03/01/19 11:30 100 16 94/54 (67) 03/01/19 11:15 103 18 91/46 (61) 98 03/01/19 11:00 91/55 03/01/19 11:00 104 20 91/55 (67) 100 03/01/19 10:58 97 16 35 Height (Feet): 5 Height (Inches): 6.00 Weight (Pounds): 156 HEENT: other - intubated Respiratory/Chest: lungs clear Cardiovascular: normal rate, regular rhythm, no gallop/murmur Abdomen: soft, non tender, other Extremities: no edema, other - left arm PICC Laboratory Tests Test 03/02/19 08:29 White Blood Count 12.4 K/UL (4.8-10.8) H Red Blood Count 2.22 M/UL (4.20-5.40) L Hemoglobin 7.2 G/DL (12.0-16.0) L Hematocrit 23.0 % (37.0-47.0) L Mean Corpuscular Volume 104 FL (80-99) H Mean Corpuscular Hemoglobin 32.6 PG (27.0-31.0) H Mean Corpuscular Hemoglobin Concent 31.5 G/DL (32.0-36.0) L Red Cell Distribution Width 18.9 % (11.6-14.8) H Platelet Count 70 K/UL (150-450) L Mean Platelet Volume 8.1 FL (6.5-10.1) Neutrophils (%) (Auto) % (45.0-75.0) Lymphocytes (%) (Auto) % (20.0-45.0) Monocytes (%) (Auto) % (1.0-10.0) Eosinophils (%) (Auto) % (0.0-3.0) Basophils (%) (Auto) % (0.0-2.0) Neutrophils % (Manual) Pending Lymphocytes % (Manual) Pending Platelet Estimate Pending Platelet Morphology Pending Sodium Level 141 MMOL/L (136-145) Potassium Level 4.9 MMOL/L (3.5-5.1) Chloride Level 113 MMOL/L (98-107) H Carbon Dioxide Level 30 MMOL/L (21-32) Anion Gap -2 mmol/L (5-15) L Blood Urea Nitrogen 29 mg/dL (7-18) H Creatinine 1.1 MG/DL (0.55-1.30) Estimat Glomerular Filtration Rate mL/min (>60) Glucose Level 161 MG/DL (74-106) H Calcium Level 7.5 MG/DL (8.5-10.1) L Phosphorus Level 2.2 MG/DL (2.5-4.9) L Magnesium Level 1.8 MG/DL (1.8-2.4) Total Bilirubin 2.1 MG/DL (0.2-1.0) H Direct Bilirubin 1.5 MG/DL (0.0-0.3) H Aspartate Amino Transf (AST/SGOT) 100 U/L (15-37) H Alanine Aminotransferase (ALT/SGPT) 63 U/L (12-78) Alkaline Phosphatase 174 U/L (46-116) H Total Protein 5.3 G/DL (6.4-8.2) L Albumin 1.7 G/DL (3.4-5.0) L Globulin 3.6 g/dL Albumin/Globulin Ratio 0.5 (1.0-2.7) L Current Medications Medications (Trade) Dose Ordered Sig/Pam Route PRN Reason Start Time Stop Time Status Last Admin Dose Admin Acetaminophen (Tylenol) 650 mg Q4H PRN ORAL Mild Pain/Temp > 100.5 02/19/19 17:15 03/21/19 17:14 Chlorhexidine Gluconate (Dayna-Hex 2%) 1 applic DAILY@1999 TOPIC 02/20/19 20:00 03/22/19 19:59 03/01/19 20:25 Levofloxacin (Levaquin) 250 mg DAILY ORAL 02/27/19 09:00 03/06/19 08:59 03/02/19 08:46 Norepinephrine Bitartrate 16 mg/ Dextrose 500 ml @ 0 mls/hr Q24H IV 02/26/19 17:30 03/28/19 17:29 03/02/19 09:23 Pantoprazole (Protonix) 40 mg Q12HR IVP 02/20/19 21:00 03/21/19 17:59 03/02/19 08:46 Shelbie Howell MD Mar 02, 2019 10:40
--- NOTE | 2019-03-02 11:15 | NUR ---
NURSE NOTES: Called and notified Dr Mason that the patient's Hgb is 7.2 this morning. Received order for 1 PRBC. Order read back, verified, and placed at this time.
--- NOTE | 2019-03-02 12:30 | NUR ---
NURSE NOTES: Patient sleeping at this time. Patient remains on bilateral soft wrist restraints for impulsivity. patient showing atrial fibrillation on the nuclear monitoring technician at this time with rate of 105 beats per minute and frequent PVC. Temp 99.5. Cooling measures remain on patient. Will continue to monitor. Will follow up. Patient remains orally intubated with 22cm noted at the lip line. Ventilator setting remain AC 16, tidal volume 500, FIO2 35%, and PEEP 5. Patient failed weaning again this morning. Gastrostomy tube remains patent, asymptomatic, and running Vital AF at 50mL/hr at this time with no residual noted. Rectal tube remains patent and draining light brown thin liquid stool. Gross remains patent and draining light pauly urine at this time. Bilateral upper arm pitting edema +4 and weeping. Left upper arm PICC line remains patent, asymptomatic, and saline locked at this time. Bed in low position with bed alarm on and call light in reach at this time. Oral care and repositioning done at this time.
--- NOTE | 2019-03-02 13:05 | Nephrology Progress Note ---
Assessment/Plan Problem List: (1) Acute respiratory failure (2) Septic shock (3) Renal failure (4) Atrial fibrillation with rapid ventricular response (5) Cardiomyopathy Assessment Renal failure - ? Acute on Chronic, Partly dehydration Septic Shock UTI AT Fib with FVR h/o DM, proteinuria , HypoAlbuminemia Plan dig IV one dose Midodrine K and Mag supplement as needed pulm support per consultants previously: stop NS intubated On 2 pressors BP remains low Poor prognosis - remains full code for now slow Hydrate 2D echo EjFx 40% antibiotics monitor renal parameters avoid nephrotoxics per orders Subjective ROS Limited/Unobtainable: Yes Objective Objective Last 24 Hour Vital Signs Date Time Temp Pulse Resp B/P (MAP) Pulse Ox O2 Delivery O2 Flow Rate FiO2 03/02/19 12:00 99.0 113 22 95/69 (78) 100 03/02/19 12:00 Mechanical Ventilator 03/02/19 11:45 115 19 91/59 (70) 100 03/02/19 11:30 114 25 69/48 (55) 99 03/02/19 11:15 112 16 96/53 (67) 100 03/02/19 11:00 110 16 86/58 (67) 99 03/02/19 10:45 114 17 90/58 (69) 100 03/02/19 10:30 113 26 94/56 (69) 100 03/02/19 10:30 117 18 35 03/02/19 10:15 113 20 96/59 (71) 100 03/02/19 10:00 101/71 03/02/19 10:00 113 21 101/71 (81) 100 03/02/19 09:45 113 25 93/52 (66) 100 03/02/19 09:30 110 17 87/51 (63) 99 03/02/19 09:23 83/57 03/02/19 09:00 111 28 88/53 (65) 100 03/02/19 09:00 105 03/02/19 08:56 100 03/02/19 08:56 123 22 35 03/02/19 08:00 Mechanical Ventilator 03/02/19 08:00 99.7 101 16 86/48 (61) 03/02/19 08:00 35 03/02/19 07:00 106 18 35 03/02/19 07:00 106 18 100 Mechanical Ventilator 35 03/02/19 07:00 111 16 90/53 (65) 100 03/02/19 06:00 111 16 90/53 (65) 100 03/02/19 05:15 107 17 35 03/02/19 05:00 112 24 101/56 (71) 100 03/02/19 04:45 107 14 99/56 (70) 100 03/02/19 04:30 112 23 99/57 (71) 100 03/02/19 04:15 115 21 98/59 (72) 100 03/02/19 04:00 35 03/02/19 04:00 Mechanical Ventilator 03/02/19 04:00 105 03/02/19 04:00 99.5 125 24 122/89 (100) 100 03/02/19 03:30 102 20 35 03/02/19 03:00 115 22 100/59 (73) 100 03/02/19 02:00 115 20 99/68 (78) 100 03/02/19 01:30 108 21 35 03/02/19 01:04 100 03/02/19 00:00 Mechanical Ventilator 03/02/19 00:00 98.5 108 23 102/63 (76) 100 108 03/01/19 23:00 123 23 121/85 (97) 100 109 03/01/19 22:47 114 17 35 03/01/19 22:00 102 21 93/55 (68) 100 103 03/01/19 21:30 97 18 35 03/01/19 21:00 101 19 103/60 (74) 100 104 03/01/19 20:00 98.8 102 22 98/53 (68) 100 03/01/19 20:00 Mechanical Ventilator 03/01/19 20:00 35 03/01/19 20:00 102 03/01/19 19:30 99 18 35 03/01/19 19:00 100 17 97/60 (72) 100 03/01/19 18:00 101 23 92/55 (67) 100 03/01/19 17:17 92 16 35 03/01/19 17:00 92 0 94/57 (69) 03/01/19 16:45 95 7 87/51 (63) 03/01/19 16:30 95 11 93/51 (65) 03/01/19 16:15 97 15 90/52 (65) 03/01/19 16:00 Mechanical Ventilator 03/01/19 16:00 98.6 99 19 92/57 (69) 100 03/01/19 16:00 35 03/01/19 16:00 102 03/01/19 16:00 92/57 03/01/19 15:30 108 22 110/61 (77) 100 03/01/19 15:00 91/50 03/01/19 15:00 102 17 91/50 (64) 100 03/01/19 14:57 108 16 35 03/01/19 14:30 107 19 104/67 (79) 100 03/01/19 14:00 104 19 103/62 (76) 100 03/01/19 14:00 103/62 03/01/19 13:30 102 17 99/57 (71) 100 Intake and Output 03/01/19 03/02/19 19:00 07:00 Intake Total 1993.25 ml 700 ml Output Total 380 ml 440 ml Balance 1613.25 ml 260 ml Free Water 150 ml 100 ml IV Total 1243.25 ml Tube Feeding 600 ml 600 ml Output Urine Total 380 ml 440 ml # Bowel Movements 50 50 Laboratory Tests 03/02/19 08:29: White Blood Count 12.4H, Red Blood Count 2.22L, Hemoglobin 7.2L, Hematocrit 23.0L, Mean Corpuscular Volume 104H, Mean Corpuscular Hemoglobin 32.6H, Mean Corpuscular Hemoglobin Concent 31.5L, Red Cell Distribution Width 18.9H, Platelet Count 70L, Mean Platelet Volume 8.1, Neutrophils (%) (Auto) , Lymphocytes (%) (Auto) , Monocytes (%) (Auto) , Eosinophils (%) (Auto) , Basophils (%) (Auto) , Differential Total Cells Counted 100, Neutrophils % ( Manual) 89H, Lymphocytes % (Manual) 3L, Monocytes % (Manual) 8, Eosinophils % ( Manual) 0, Basophils % (Manual) 0, Band Neutrophils 0, Platelet Estimate DecreasedL, Platelet Morphology Normal, Hypochromasia 1+, Anisocytosis 2+, Macrocytosis 1+, Sodium Level 141, Potassium Level 4.9, Chloride Level 113H, Carbon Dioxide Level 30, Anion Gap -2L, Blood Urea Nitrogen 29H, Creatinine 1.1 , Estimat Glomerular Filtration Rate , Glucose Level 161H, Calcium Level 7.5L, Phosphorus Level 2.2L, Magnesium Level 1.8, Total Bilirubin 2.1H, Direct Bilirubin 1.5H, Aspartate Amino Transf (AST/SGOT) 100H, Alanine Aminotransferase (ALT/SGPT) 63, Alkaline Phosphatase 174H, Total Protein 5.3L, Albumin 1.7L, Globulin 3.6, Albumin/Globulin Ratio 0.5L Height (Feet): 5 Height (Inches): 6.00 Weight (Pounds): 156 EENT: other - vented Cardiovascular: tachycardia Respiratory/Chest: decreased breath sounds Abdomen: distended Objective no change Jt Louis MD Mar 02, 2019 13:05
[2019-03-02] MEDS ORDERED: Digoxin 0.5mg/2ml Inj IVP SCH (13:15)
[2019-03-02] MEDS ORDERED: Sodium Phosphate 15 MM in NS 275 ML IVPB ONE (14:00)
--- NOTE | 2019-03-02 14:00 | NUR ---
NURSE NOTES: Patient showing no sign of acute distress. patient has order for blood transfusion. Transfusion will be given after Sodium phosphate completed. Patient has no other access until this medication is complete. Patient HR remains in atrial fibrillation with rate of 106 beats per minute and frequent PVCs. MD aware. BP stable at 95/57 on 4mcg/min Levophed drip. Will continue to monitor and titrate per protocol. Patient repositioned.
--- NOTE | 2019-03-02 15:40 | Surgery Progress Note ---
Surgery Progress Note Subjective Additional Comments ill appearing exam unchanged alert on support Objective Last 24 Hour Vital Signs Date Time Temp Pulse Resp B/P (MAP) Pulse Ox O2 Delivery O2 Flow Rate FiO2 03/02/19 15:20 106 17 35 03/02/19 15:00 99/52 03/02/19 15:00 111 23 99/52 (68) 100 03/02/19 14:45 108 20 93/52 (66) 99 03/02/19 14:30 111 17 95/53 (67) 100 03/02/19 14:15 111 20 120/58 (78) 100 03/02/19 14:00 109 17 96/51 (66) 100 03/02/19 14:00 96/51 03/02/19 13:45 106 16 103/60 (74) 100 03/02/19 13:30 109 23 104/67 (79) 100 03/02/19 13:23 106 03/02/19 13:15 108 17 93/55 (68) 100 03/02/19 13:12 112 16 35 03/02/19 13:00 94/57 03/02/19 13:00 107 16 94/57 (69) 100 03/02/19 12:45 109 24 91/52 (65) 100 03/02/19 12:30 111 16 116/50 (72) 99 03/02/19 12:15 109 20 98/54 (69) 100 03/02/19 12:00 107 03/02/19 12:00 99.0 113 22 95/69 (78) 100 03/02/19 12:00 98/54 03/02/19 12:00 35 03/02/19 12:00 Mechanical Ventilator 03/02/19 11:45 115 19 91/59 (70) 100 03/02/19 11:30 114 25 69/48 (55) 99 03/02/19 11:15 112 16 96/53 (67) 100 03/02/19 11:15 69/48 03/02/19 11:00 110 16 86/58 (67) 99 03/02/19 11:00 96/53 03/02/19 10:45 114 17 90/58 (69) 100 03/02/19 10:30 113 26 94/56 (69) 100 03/02/19 10:30 117 18 35 03/02/19 10:15 113 20 96/59 (71) 100 03/02/19 10:00 101/71 03/02/19 10:00 113 21 101/71 (81) 100 03/02/19 09:45 113 25 93/52 (66) 100 03/02/19 09:30 110 17 87/51 (63) 99 03/02/19 09:23 83/57 03/02/19 09:00 111 28 88/53 (65) 100 03/02/19 09:00 105 03/02/19 08:56 100 03/02/19 08:56 123 22 35 03/02/19 08:00 Mechanical Ventilator 03/02/19 08:00 99.7 101 16 86/48 (61) 03/02/19 08:00 35 03/02/19 07:00 106 18 35 03/02/19 07:00 106 18 100 Mechanical Ventilator 35 03/02/19 07:00 111 16 90/53 (65) 100 03/02/19 06:00 111 16 90/53 (65) 100 03/02/19 05:15 107 17 35 03/02/19 05:00 112 24 101/56 (71) 100 03/02/19 04:45 107 14 99/56 (70) 100 03/02/19 04:30 112 23 99/57 (71) 100 03/02/19 04:15 115 21 98/59 (72) 100 03/02/19 04:00 35 03/02/19 04:00 Mechanical Ventilator 03/02/19 04:00 105 03/02/19 04:00 99.5 125 24 122/89 (100) 100 03/02/19 03:30 102 20 35 03/02/19 03:00 115 22 100/59 (73) 100 03/02/19 02:00 115 20 99/68 (78) 100 03/02/19 01:30 108 21 35 03/02/19 01:04 100 03/02/19 00:00 Mechanical Ventilator 03/02/19 00:00 98.5 108 23 102/63 (76) 100 108 03/01/19 23:00 123 23 121/85 (97) 100 109 03/01/19 22:47 114 17 35 03/01/19 22:00 102 21 93/55 (68) 100 103 03/01/19 21:30 97 18 35 03/01/19 21:00 101 19 103/60 (74) 100 104 03/01/19 20:00 98.8 102 22 98/53 (68) 100 03/01/19 20:00 Mechanical Ventilator 03/01/19 20:00 35 03/01/19 20:00 102 03/01/19 19:30 99 18 35 03/01/19 19:00 100 17 97/60 (72) 100 03/01/19 18:00 101 23 92/55 (67) 100 03/01/19 17:17 92 16 35 03/01/19 17:00 92 0 94/57 (69) 03/01/19 16:45 95 7 87/51 (63) 03/01/19 16:30 95 11 93/51 (65) 03/01/19 16:15 97 15 90/52 (65) 03/01/19 16:00 Mechanical Ventilator 03/01/19 16:00 98.6 99 19 92/57 (69) 100 03/01/19 16:00 35 03/01/19 16:00 102 03/01/19 16:00 92/57 I&O Intake and Output 03/01/19 03/02/19 19:00 07:00 Intake Total 1993.25 ml 700 ml Output Total 380 ml 440 ml Balance 1613.25 ml 260 ml Free Water 150 ml 100 ml IV Total 1243.25 ml Tube Feeding 600 ml 600 ml Output Urine Total 380 ml 440 ml # Bowel Movements 50 50 Dressing: saturated Wound: other Drains: other Cardiovascular: RSR Respiratory: decreased breath sounds Abdomen: soft, non-tender, decreased bowel sounds Extremities: cyanosis, no tenderness Laboratory Tests Test 03/02/19 08:29 White Blood Count 12.4 K/UL (4.8-10.8) H Red Blood Count 2.22 M/UL (4.20-5.40) L Hemoglobin 7.2 G/DL (12.0-16.0) L Hematocrit 23.0 % (37.0-47.0) L Mean Corpuscular Volume 104 FL (80-99) H Mean Corpuscular Hemoglobin 32.6 PG (27.0-31.0) H Mean Corpuscular Hemoglobin Concent 31.5 G/DL (32.0-36.0) L Red Cell Distribution Width 18.9 % (11.6-14.8) H Platelet Count 70 K/UL (150-450) L Mean Platelet Volume 8.1 FL (6.5-10.1) Neutrophils (%) (Auto) % (45.0-75.0) Lymphocytes (%) (Auto) % (20.0-45.0) Monocytes (%) (Auto) % (1.0-10.0) Eosinophils (%) (Auto) % (0.0-3.0) Basophils (%) (Auto) % (0.0-2.0) Differential Total Cells Counted 100 Neutrophils % (Manual) 89 % (45-75) H Lymphocytes % (Manual) 3 % (20-45) L Monocytes % (Manual) 8 % (1-10) Eosinophils % (Manual) 0 % (0-3) Basophils % (Manual) 0 % (0-2) Band Neutrophils 0 % (0-8) Platelet Estimate Decreased L Platelet Morphology Normal Hypochromasia 1+ Anisocytosis 2+ Macrocytosis 1+ Sodium Level 141 MMOL/L (136-145) Potassium Level 4.9 MMOL/L (3.5-5.1) Chloride Level 113 MMOL/L (98-107) H Carbon Dioxide Level 30 MMOL/L (21-32) Anion Gap -2 mmol/L (5-15) L Blood Urea Nitrogen 29 mg/dL (7-18) H Creatinine 1.1 MG/DL (0.55-1.30) Estimat Glomerular Filtration Rate mL/min (>60) Glucose Level 161 MG/DL (74-106) H Calcium Level 7.5 MG/DL (8.5-10.1) L Phosphorus Level 2.2 MG/DL (2.5-4.9) L Magnesium Level 1.8 MG/DL (1.8-2.4) Total Bilirubin 2.1 MG/DL (0.2-1.0) H Direct Bilirubin 1.5 MG/DL (0.0-0.3) H Aspartate Amino Transf (AST/SGOT) 100 U/L (15-37) H Alanine Aminotransferase (ALT/SGPT) 63 U/L (12-78) Alkaline Phosphatase 174 U/L (46-116) H Total Protein 5.3 G/DL (6.4-8.2) L Albumin 1.7 G/DL (3.4-5.0) L Globulin 3.6 g/dL Albumin/Globulin Ratio 0.5 (1.0-2.7) L Digoxin Level 1.8 NG/ML (0.9-2.0) Plan Problems: (1) Septic shock Assessment & Plan: 78-year-old female in septic shock in the intensive care unit on pressors. Leukocytosis, anemia, abnormal labs. Tachycardic. On respiratory support. On examination patient identified to have slowed capillary refill in the distal extremities. Patient furthermore identified to have a weeping wound in the right great toe. Patient is currently very ill and septic and requiring pressors. Unfortunately given her medical condition comorbidities and history there is potential for distal vasoconstriction and potentially even necrosis of the distal aspects but further life-saving measures pressors currently required and necessary and indicated. wound re-evaluated. necrotic epidermal tissue sloth off but underlying tissues with backbleeding. motor noted spont in foot and toes We will continue to monitor extremities and evaluate them. Will wean off pressors as possible. Lactic acidosis improving. Continue IV antibiotics Wean pressors prognosis guarded labs slowly improving now still ill and guarded Appreciate ICU care and management We will follow with recommendations (2) Abdominal pain Assessment & Plan: Chronic liver disease/cirrhosis with signs of portal hypertension including moderate ascites and hepatofugal flow in the portal vein. Gallbladder wall edema nonspecific Bilateral pleural effusions. Medical renal disease Findings: There is extensive artifact from the patient's arms limiting evaluation. Oral contrast was given. Gastrostomy tube is noted in good position. There are small bilateral pleural effusions present with adjacent ill-defined parenchymal density either atelectasis or pneumonia. Correlate clinically. Small pericardial effusion is present and there is generalized cardiomegaly present. Hiatal hernia noted. Aorta and coronary artery calcification present. Mild ascites is demonstrated. No compelling evidence for bowel obstruction. There is extensive diverticulosis involving the colon without obvious diverticulitis. Generalized anasarca noted. The appendix is not seen. The kidneys show no obvious hydronephrosis. The right kidney appears atrophic. There is a suggestion of cysts within the right kidney but this is grossly limited in terms of visualization. The gallbladder is demonstrated. The rectum appears low in location suggestive of prolapse and with a moderate degree of fecal retention. IMPRESSION: Limited evaluation due to artifact. Mild to moderate ascites Trace bilateral pleural effusions. Basilar atelectasis and/or infiltrate. Trace pericardial effusion Generalized cardiomegaly. Atherosclerotic vascular disease Extensive diverticulosis of the colon. No definite diverticulitis. Anasarca Gross catheter Query rectal prolapse (3) Severe sepsis Tristan Heller Mar 02, 2019 15:40
--- NOTE | 2019-03-02 16:30 | NUR ---
NURSE NOTES: Patient awake and confused at this time. Patient remains on bilateral soft wrist restraints for impulsivity. patient showing atrial fibrillation on the laboratory monitor at this time with rate of 117 beats per minute and frequent PVCs. Temp 98.4. Will continue to monitor. Patient remains orally intubated with 22cm noted at the lip line. Ventilator setting remain AC 16, tidal volume 500, FIO2 35%, and PEEP 5. Patient tolerating setting with no sign of acute distress. Gastrostomy tube remains patent, asymptomatic, and running Vital AF at 50mL/hr at this time with no residual noted. Rectal tube remains patent and draining light brown thin liquid stool. Gross remains patent and draining light pauly urine at this time. Bilateral upper arm pitting edema +4 and weeping. Left upper arm PICC line remains patent, asymptomatic, and saline locked at this time. Bed in low position with bed alarm on and call light in reach at this time. Oral care, bed bath, and repositioning done at this time.
--- NOTE | 2019-03-02 18:48 | NUR ---
NURSE NOTES: One PRBC blood transfusion started. Temp 99.0. BP 101/60, HR 106, RR 16. Patient showing no sign of acute distress.
--- NOTE | 2019-03-02 19:29 | NUR ---
HAND-OFF: Report given to ANDREINA Delatorre. Patient vital signs stable at this time. Blood transfusion running. Patient stable after first 15minutes. Transfusion rate increased to 125mL/hr. Patient tolerating transfusion with no sign of reaction. Endorsed to follow up.
--- NOTE | 2019-03-02 19:30 | NUR ---
NURSE NOTES: Endorsement received from Grecia Prieto. Patient awake, alert x1. Opens eyes to name, withdraws to pain. Orally intubated with 7.0, 22 lipline. AC 16, 500, PEEP 5, 35% FiO2. With left upper arm PICC. On levophed 4mcg/min. Currently receiving 1 of 1 unit PRBC, at 125ml/hr. Bag rechecked with patient's armband and blood transfusion form. With bilateral soft wrists restraints for attempting to pull out tubes. Bilateral arms edematous and weeping. Kept elevated. GT present and intact. Receiving Vital AF 50ml/hr. No residual. Head of bed elevated. Bed locked and in low position. Bed alarm on. On P200 mattress. SCDs in place.
[2019-03-02] MEDS: Dyna-Hex 2% Top Sol 2oz TOPIC SCH (20:02)
--- NOTE | 2019-03-02 21:00 | NUR ---
NURSE NOTES: Blood transfusion consumed. No transfusion reaction. Will continue to monitor.
--- NOTE | 2019-03-02 21:06 | Critical Care Progress Note ---
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, chronic atrial fibrillation, hypertension, diastolic congestive heart failure, septic shock, hypothermia, hypotension, hypoxemia severe PCM, thrombocytopenia, anemia, leukocytosis, acute renal failure Vent support PLAN care noted vent management and try to wean- still on full vent support monitor secretions and vent settings and imaging monitor acid base support as able and discuss full code as outlined pressors as needed- monitor for hypotension IV antibiotics and cultures noted respiratory care SNF meds supportive care as outline suction and monitor imaging monitor for aspiration and change oxygen therapy as needed all care reviewed in detail ICU care reviewed close follow up of acid base for now remains critical at present medications/laboratory data/nursing notes/ICU care reviewed in detail note reviewed and edited care discussed with RN and RT ICU time spent 40 minutes Critical Care - Subjective Interval Events: care noted vent still on full vent support on AC findings discussed and reviewed ROS Limited/Unobtainable: Yes Condition: critical EKG Rhythm: Sinus Rhythm Residuals: minimal Tube Feeding Tolerated: yes I&O: Intake and Output 03/01/19 03/02/19 19:00 07:00 Intake Total 1993.25 ml 700 ml Output Total 380 ml 440 ml Balance 1613.25 ml 260 ml Free Water 150 ml 100 ml IV Total 1243.25 ml Tube Feeding 600 ml 600 ml Output Urine Total 380 ml 440 ml # Bowel Movements 50 50 Critical Care - Objective ET-Tube: 7.0 ET Position: 22 Last 24 Hour Vital Signs Date Time Temp Pulse Resp B/P (MAP) Pulse Ox O2 Delivery O2 Flow Rate FiO2 03/02/19 20:57 102 18 35 03/02/19 20:00 Mechanical Ventilator 03/02/19 20:00 35 03/02/19 19:00 98.7 105 19 116/63 (80) 99 03/02/19 18:58 104 16 35 03/02/19 18:53 101/60 03/02/19 18:45 99.0 110 30 101/60 (74) 03/02/19 18:30 111 32 101/56 (71) 03/02/19 18:00 119/57 03/02/19 18:00 114 22 119/57 (77) 03/02/19 17:30 107 17 93/48 (63) 03/02/19 17:00 105 16 97/58 (71) 98 03/02/19 17:00 97/58 03/02/19 16:48 116 26 35 03/02/19 16:00 106 17 131/65 (87) 98 03/02/19 16:00 98.4 106 17 131/65 (87) 98 03/02/19 16:00 105 03/02/19 16:00 35 03/02/19 16:00 131/65 03/02/19 16:00 Mechanical Ventilator 03/02/19 15:20 106 17 35 03/02/19 15:00 99/52 03/02/19 15:00 111 23 99/52 (68) 100 03/02/19 14:45 108 20 93/52 (66) 99 03/02/19 14:30 111 17 95/53 (67) 100 03/02/19 14:15 111 20 120/58 (78) 100 03/02/19 14:00 109 17 96/51 (66) 100 03/02/19 14:00 96/51 03/02/19 13:45 106 16 103/60 (74) 100 03/02/19 13:30 109 23 104/67 (79) 100 03/02/19 13:23 106 03/02/19 13:15 108 17 93/55 (68) 100 03/02/19 13:12 112 16 35 03/02/19 13:00 94/57 03/02/19 13:00 107 16 94/57 (69) 100 03/02/19 12:45 109 24 91/52 (65) 100 03/02/19 12:30 111 16 116/50 (72) 99 03/02/19 12:15 109 20 98/54 (69) 100 03/02/19 12:00 107 03/02/19 12:00 99.0 113 22 95/69 (78) 100 03/02/19 12:00 98/54 03/02/19 12:00 35 03/02/19 12:00 Mechanical Ventilator 03/02/19 11:45 115 19 91/59 (70) 100 03/02/19 11:30 114 25 69/48 (55) 99 03/02/19 11:15 112 16 96/53 (67) 100 03/02/19 11:15 69/48 03/02/19 11:00 110 16 86/58 (67) 99 03/02/19 11:00 96/53 03/02/19 10:45 114 17 90/58 (69) 100 03/02/19 10:30 113 26 94/56 (69) 100 03/02/19 10:30 117 18 35 03/02/19 10:15 113 20 96/59 (71) 100 03/02/19 10:00 101/71 03/02/19 10:00 113 21 101/71 (81) 100 03/02/19 09:45 113 25 93/52 (66) 100 03/02/19 09:30 110 17 87/51 (63) 99 03/02/19 09:23 83/57 03/02/19 09:00 111 28 88/53 (65) 100 03/02/19 09:00 105 03/02/19 08:56 100 03/02/19 08:56 123 22 35 03/02/19 08:00 Mechanical Ventilator 03/02/19 08:00 99.7 101 16 86/48 (61) 03/02/19 08:00 35 03/02/19 07:00 106 18 35 03/02/19 07:00 106 18 100 Mechanical Ventilator 35 03/02/19 07:00 111 16 90/53 (65) 100 03/02/19 06:00 111 16 90/53 (65) 100 03/02/19 05:15 107 17 35 03/02/19 05:00 112 24 101/56 (71) 100 03/02/19 04:45 107 14 99/56 (70) 100 03/02/19 04:30 112 23 99/57 (71) 100 03/02/19 04:15 115 21 98/59 (72) 100 03/02/19 04:00 35 03/02/19 04:00 Mechanical Ventilator 03/02/19 04:00 105 03/02/19 04:00 99.5 125 24 122/89 (100) 100 03/02/19 03:30 102 20 35 03/02/19 03:00 115 22 100/59 (73) 100 03/02/19 02:00 115 20 99/68 (78) 100 03/02/19 01:30 108 21 35 03/02/19 01:04 100 03/02/19 00:00 Mechanical Ventilator 03/02/19 00:00 98.5 108 23 102/63 (76) 100 108 03/01/19 23:00 123 23 121/85 (97) 100 109 03/01/19 22:47 114 17 35 03/01/19 22:00 102 21 93/55 (68) 100 103 03/01/19 21:30 97 18 35 Labs: Labs Test 02/28/19 03:20 03/01/19 04:04 03/01/19 04:05 03/02/19 08:29 White Blood Count 18.5 K/UL (4.8-10.8) 16.8 K/UL (4.8-10.8) 12.4 K/UL (4.8-10.8) Red Blood Count 2.67 M/UL (4.20-5.40) 2.52 M/UL (4.20-5.40) 2.22 M/UL (4.20-5.40) Hemoglobin 8.6 G/DL (12.0-16.0) 8.3 G/DL (12.0-16.0) 7.2 G/DL (12.0-16.0) Hematocrit 27.8 % (37.0-47.0) 26.2 % (37.0-47.0) 23.0 % (37.0-47.0) Mean Corpuscular Volume 105 FL (80-99) 104 FL (80-99) 104 FL (80-99) Mean Corpuscular Hemoglobin 32.4 PG (27.0-31.0) 32.9 PG (27.0-31.0) 32.6 PG (27.0-31.0) Mean Corpuscular Hemoglobin Concent 31.0 G/DL (32.0-36.0) 31.7 G/DL (32.0-36.0) 31.5 G/DL (32.0-36.0) Red Cell Distribution Width 19.1 % (11.6-14.8) 18.7 % (11.6-14.8) 18.9 % (11.6-14.8) Platelet Count 102 K/UL (150-450) 99 K/UL (150-450) 70 K/UL (150-450) Mean Platelet Volume 7.1 FL (6.5-10.1) 8.1 FL (6.5-10.1) 8.1 FL (6.5-10.1) Neutrophils (%) (Auto) % (45.0-75.0) % (45.0-75.0) % (45.0-75.0) Lymphocytes (%) (Auto) % (20.0-45.0) % (20.0-45.0) % (20.0-45.0) Monocytes (%) (Auto) % (1.0-10.0) % (1.0-10.0) % (1.0-10.0) Eosinophils (%) (Auto) % (0.0-3.0) % (0.0-3.0) % (0.0-3.0) Basophils (%) (Auto) % (0.0-2.0) % (0.0-2.0) % (0.0-2.0) Differential Total Cells Counted 100 100 100 Neutrophils % (Manual) 95 % (45-75) 95 % (45-75) 89 % (45-75) Lymphocytes % (Manual) 3 % (20-45) 3 % (20-45) 3 % (20-45) Monocytes % (Manual) 2 % (1-10) 0 % (1-10) 8 % (1-10) Eosinophils % (Manual) 0 % (0-3) 1 % (0-3) 0 % (0-3) Basophils % (Manual) 0 % (0-2) 0 % (0-2) 0 % (0-2) Band Neutrophils 0 % (0-8) 1 % (0-8) 0 % (0-8) Nucleated Red Blood Cells 2 /100 WBC Platelet Estimate Decreased Decreased Decreased Platelet Morphology Normal Normal Normal Anisocytosis 1+ 2+ 2+ Ovalocytes 1+ Acanthocytes 1+ Sodium Level 143 MMOL/L (136-145) 142 MMOL/L (136-145) 141 MMOL/L (136-145) Potassium Level 4.5 MMOL/L (3.5-5.1) 5.2 MMOL/L (3.5-5.1) 4.9 MMOL/L (3.5-5.1) Chloride Level 111 MMOL/L (98-107) 112 MMOL/L (98-107) 113 MMOL/L (98-107) Carbon Dioxide Level 28 MMOL/L (21-32) 26 MMOL/L (21-32) 30 MMOL/L (21-32) Anion Gap 4 mmol/L (5-15) 4 mmol/L (5-15) -2 mmol/L (5-15) Blood Urea Nitrogen 32 mg/dL (7-18) 30 mg/dL (7-18) 29 mg/dL (7-18) Creatinine 1.2 MG/DL (0.55-1.30) 1.1 MG/DL (0.55-1.30) 1.1 MG/DL (0.55-1.30) Estimat Glomerular Filtration Rate mL/min (>60) mL/min (>60) mL/min (>60) Glucose Level 189 MG/DL (74-106) 178 MG/DL (74-106) 161 MG/DL (74-106) Calcium Level 7.7 MG/DL (8.5-10.1) 7.6 MG/DL (8.5-10.1) 7.5 MG/DL (8.5-10.1) Phosphorus Level 2.1 MG/DL (2.5-4.9) 3.1 MG/DL (2.5-4.9) 2.2 MG/DL (2.5-4.9) Magnesium Level 1.7 MG/DL (1.8-2.4) 1.6 MG/DL (1.8-2.4) 1.8 MG/DL (1.8-2.4) Total Bilirubin 1.8 MG/DL (0.2-1.0) 1.8 MG/DL (0.2-1.0) 2.1 MG/DL (0.2-1.0) Direct Bilirubin 1.3 MG/DL (0.0-0.3) 1.4 MG/DL (0.0-0.3) 1.5 MG/DL (0.0-0.3) Aspartate Amino Transf (AST/SGOT) 80 U/L (15-37) 107 U/L (15-37) 100 U/L (15-37) Alanine Aminotransferase (ALT/SGPT) 55 U/L (12-78) 63 U/L (12-78) 63 U/L (12-78) Alkaline Phosphatase 156 U/L (46-116) 181 U/L (46-116) 174 U/L (46-116) Total Protein 5.4 G/DL (6.4-8.2) 5.5 G/DL (6.4-8.2) 5.3 G/DL (6.4-8.2) Albumin 1.7 G/DL (3.4-5.0) 1.6 G/DL (3.4-5.0) 1.7 G/DL (3.4-5.0) Globulin 3.7 g/dL 3.9 g/dL 3.6 g/dL Albumin/Globulin Ratio 0.5 (1.0-2.7) 0.4 (1.0-2.7) 0.5 (1.0-2.7) Hypochromasia 1+ 1+ Macrocytosis 2+ 1+ Digoxin Level 1.8 NG/ML (0.9-2.0) Objective: PHYSICAL EXAMINATION: GENERAL: The patient is a chronically ill-appearing female, on VENT and not weaning yet NECK: Supple. There is a central line in the right subclavian area. HEART: iRRR.without MRG LUNGS: reduced breath sounds with some rhonchi; no wheeze ABDOMEN: Soft, nontender, nondistended. no HSM EXTREMITIES: No clubbing, cyanosis, or edema. NEURO: response to pain skin noted Accucheck: 72 Jan Anderson MD Mar 02, 2019 21:06
--- NOTE | 2019-03-02 21:14 | General Progress Note ---
Assessment/Plan Status: stable, not improved, deteriorating Assessment/Plan: Assessment - GT dependent - Hepatitis C (+) - Abnormal LFT, ascites, thrombocytopenia - suspect chronic liver disease - Lactic acidosis - Resp failure - OBS / Delirium - Azotemia - Diarrhea - improved off of lactulose - poor PX Recommendations - supportive care - Abx per ID - agree with DNR Subjective Allergies: Coded Allergies: No Known Allergies (Unverified , 02/19/19) Subjective Above noted intubated tolerating TF diarrhea only 50 cc/24 hours now Objective Last 24 Hour Vital Signs Date Time Temp Pulse Resp B/P (MAP) Pulse Ox O2 Delivery O2 Flow Rate FiO2 03/02/19 20:57 102 18 35 03/02/19 20:00 Mechanical Ventilator 03/02/19 20:00 35 03/02/19 19:00 98.7 105 19 116/63 (80) 99 03/02/19 18:58 104 16 35 03/02/19 18:53 101/60 03/02/19 18:45 99.0 110 30 101/60 (74) 03/02/19 18:30 111 32 101/56 (71) 03/02/19 18:00 119/57 03/02/19 18:00 114 22 119/57 (77) 03/02/19 17:30 107 17 93/48 (63) 03/02/19 17:00 105 16 97/58 (71) 98 03/02/19 17:00 97/58 03/02/19 16:48 116 26 35 03/02/19 16:00 106 17 131/65 (87) 98 03/02/19 16:00 98.4 106 17 131/65 (87) 98 03/02/19 16:00 105 03/02/19 16:00 35 03/02/19 16:00 131/65 03/02/19 16:00 Mechanical Ventilator 03/02/19 15:20 106 17 35 03/02/19 15:00 99/52 03/02/19 15:00 111 23 99/52 (68) 100 03/02/19 14:45 108 20 93/52 (66) 99 03/02/19 14:30 111 17 95/53 (67) 100 03/02/19 14:15 111 20 120/58 (78) 100 11/22/19 14:00 109 17 96/51 (66) 100 03/02/19 14:00 96/51 03/02/19 13:45 106 16 103/60 (74) 100 03/02/19 13:30 109 23 104/67 (79) 100 03/02/19 13:23 106 03/02/19 13:15 108 17 93/55 (68) 100 03/02/19 13:12 112 16 35 03/02/19 13:00 94/57 03/02/19 13:00 107 16 94/57 (69) 100 03/02/19 12:45 109 24 91/52 (65) 100 03/02/19 12:30 111 16 116/50 (72) 99 03/02/19 12:15 109 20 98/54 (69) 100 03/02/19 12:00 107 03/02/19 12:00 99.0 113 22 95/69 (78) 100 03/02/19 12:00 98/54 03/02/19 12:00 35 03/02/19 12:00 Mechanical Ventilator 03/02/19 11:45 115 19 91/59 (70) 100 03/02/19 11:30 114 25 69/48 (55) 99 03/02/19 11:15 112 16 96/53 (67) 100 03/02/19 11:15 69/48 03/02/19 11:00 110 16 86/58 (67) 99 03/02/19 11:00 96/53 03/02/19 10:45 114 17 90/58 (69) 100 03/02/19 10:30 113 26 94/56 (69) 100 03/02/19 10:30 117 18 35 03/02/19 10:15 113 20 96/59 (71) 100 03/02/19 10:00 101/71 03/02/19 10:00 113 21 101/71 (81) 100 03/02/19 09:45 113 25 93/52 (66) 100 03/02/19 09:30 110 17 87/51 (63) 99 03/02/19 09:23 83/57 03/02/19 09:00 111 28 88/53 (65) 100 03/02/19 09:00 105 03/02/19 08:56 100 03/02/19 08:56 123 22 35 03/02/19 08:00 Mechanical Ventilator 03/02/19 08:00 99.7 101 16 86/48 (61) 03/02/19 08:00 35 03/02/19 07:00 106 18 35 03/02/19 07:00 106 18 100 Mechanical Ventilator 35 03/02/19 07:00 111 16 90/53 (65) 100 03/02/19 06:00 111 16 90/53 (65) 100 03/02/19 05:15 107 17 35 03/02/19 05:00 112 24 101/56 (71) 100 03/02/19 04:45 107 14 99/56 (70) 100 03/02/19 04:30 112 23 99/57 (71) 100 03/02/19 04:15 115 21 98/59 (72) 100 03/02/19 04:00 35 03/02/19 04:00 Mechanical Ventilator 03/02/19 04:00 105 03/02/19 04:00 99.5 125 24 122/89 (100) 100 03/02/19 03:30 102 20 35 03/02/19 03:00 115 22 100/59 (73) 100 03/02/19 02:00 115 20 99/68 (78) 100 03/02/19 01:30 108 21 35 03/02/19 01:04 100 03/02/19 00:00 Mechanical Ventilator 03/02/19 00:00 98.5 108 23 102/63 (76) 100 108 03/01/19 23:00 123 23 121/85 (97) 100 109 03/01/19 22:47 114 17 35 03/01/19 22:00 102 21 93/55 (68) 100 103 03/01/19 21:30 97 18 35 Intake and Output 03/01/19 03/02/19 19:00 07:00 Intake Total 1993.25 ml 700 ml Output Total 380 ml 440 ml Balance 1613.25 ml 260 ml Free Water 150 ml 100 ml IV Total 1243.25 ml Tube Feeding 600 ml 600 ml Output Urine Total 380 ml 440 ml # Bowel Movements 50 50 Laboratory Tests 03/02/19 08:29: White Blood Count 12.4H, Red Blood Count 2.22L, Hemoglobin 7.2L, Hematocrit 23.0L, Mean Corpuscular Volume 104H, Mean Corpuscular Hemoglobin 32.6H, Mean Corpuscular Hemoglobin Concent 31.5L, Red Cell Distribution Width 18.9H, Platelet Count 70L, Mean Platelet Volume 8.1, Neutrophils (%) (Auto) , Lymphocytes (%) (Auto) , Monocytes (%) (Auto) , Eosinophils (%) (Auto) , Basophils (%) (Auto) , Differential Total Cells Counted 100, Neutrophils % ( Manual) 89H, Lymphocytes % (Manual) 3L, Monocytes % (Manual) 8, Eosinophils % ( Manual) 0, Basophils % (Manual) 0, Band Neutrophils 0, Platelet Estimate DecreasedL, Platelet Morphology Normal, Hypochromasia 1+, Anisocytosis 2+, Macrocytosis 1+, Sodium Level 141, Potassium Level 4.9, Chloride Level 113H, Carbon Dioxide Level 30, Anion Gap -2L, Blood Urea Nitrogen 29H, Creatinine 1.1 , Estimat Glomerular Filtration Rate , Glucose Level 161H, Calcium Level 7.5L, Phosphorus Level 2.2L, Magnesium Level 1.8, Total Bilirubin 2.1H, Direct Bilirubin 1.5H, Aspartate Amino Transf (AST/SGOT) 100H, Alanine Aminotransferase (ALT/SGPT) 63, Alkaline Phosphatase 174H, Total Protein 5.3L, Albumin 1.7L, Globulin 3.6, Albumin/Globulin Ratio 0.5L, Digoxin Level 1.8 Height (Feet): 5 Height (Inches): 6.00 Weight (Pounds): 156 Objective WDWN NCAT Supple Coarse ronchi RR abd soft ND NT, (+) GT obtunded César Saldana MD Mar 02, 2019 21:14
--- NOTE | 2019-03-02 23:00 | NUR ---
NURSE NOTES: Patient on Levophed 2mcg/min, SBP drops to 70s mmHg. Very sensitive to rate change, increased to 3mcg/min
[2019-03-03] VITALS (72 sets, daily range): BP systolic 83–123; BP diastolic 31–85
--- NOTE | 2019-03-03 00:01 | Progress Note ---
DATE: 03/02/2019 CARDIOLOGY PROGRESS NOTE SUBJECTIVE: The patient remains on ventilator support, off pressors. Blood pressure parameters stable. Monitored rhythm, atrial fibrillation. OBJECTIVE: VITAL SIGNS: Blood pressure 101/56, heart rate 112, and respiratory rate 24. LUNGS: Bilateral breath sounds. Scattered rhonchi. HEART: Irregularly irregular rhythm. Normal S1 and S2. ABDOMEN: Soft. Moderate ascites. EXTREMITIES: 2+ edema. LABORATORY DATA: White count 12 and hemoglobin 7. Potassium 4.9, BUN 29, and creatinine 1.1. Albumin 1.7. Magnesium 1.8. Phosphorus 2.2. IMPRESSION: 1. Recovering sepsis with shock. 2. Respiratory failure. 3. Hypophosphatemia. 4. Corrected hypomagnesemia. 5. Severe protein-calorie malnutrition. 6. Atrial fibrillation with rapid ventricular response. PLAN: 1. Off pressors. 2. Wean off ventilator. 3. Replace phosphorus. 4. Replace other electrolytes as needed. 5. Add beta-lindsay if BP can tolerate, 6. We will reassess for diuresis as clinical condition progresses. Jimmie Mason M.D. DR: Artur JOB#: [id number] CC: CHRISTINE
--- NOTE | 2019-03-03 01:00 | NUR ---
NURSE NOTES: Patient asleep. Arousable per name. Nods/shakes head when asked with yes/no question. Tolerating feeding. Appears comfortable, no sign of pain.
--- NOTE | 2019-03-03 03:00 | NUR ---
NURSE NOTES: Bed bath, oral care, change of linens done. Skin assessment done, noted sacral with new wound. See WCP and intervention.
--- NOTE | 2019-03-03 05:00 | NUR ---
NURSE NOTES: Patient asleep. Vital signs stable.
[2019-03-03 05:52] LABS: HEMATOCRIT 28.1 % (37.0-47.0); MEAN CORPUSCULAR VOLUME 101 FL (80-99); PLATELET COUNT 56 K/UL (150-450); RED BLOOD COUNT 2.79 M/UL (4.20-5.40)
[2019-03-03 06:16] LABS: ALANINE AMINOTRANSFERASE 56 U/L (12-78); ALBUMIN 1.6 G/DL (3.4-5.0); ALBUMIN/GLOBULIN RATIO 0.4 (1.0-2.7); ALKALINE PHOSPHATASE 187 U/L (46-116); ANION GAP 6 mmol/L (5-15); ASPARTATE AMINO TRANSFERASE 89 U/L (15-37); BILIRUBIN,TOTAL 2.5 MG/DL (0.2-1.0); BLOOD UREA NITROGEN 29 mg/dL (7-18); CALCIUM 7.8 MG/DL (8.5-10.1); CARBON DIOXIDE 24 MMOL/L (21-32); CHLORIDE 112 MMOL/L (98-107); PHOSPHORUS 2.9 MG/DL (2.5-4.9); POTASSIUM 5.3 MMOL/L (3.5-5.1); SODIUM 142 MMOL/L (136-145)
[2019-03-03 06:17] LABS: BILIRUBIN,DIRECT 1.7 MG/DL (0.0-0.3)
--- NOTE | 2019-03-03 07:00 | NUR ---
RESPIRATORY NOTES: Received Patient on Vent settings ACVC RR 16, VT 500, Fio2 35% PEEP +5. Patient has a 7.0 ETT at 22 cm at the lip, secured with anchorfast. Suctioned a minimal amount of thick yellow/fraser secretions. Patient lying in bed comfortable. Vent plugged into red outlet. Alarms are on and audible. Will continue to monitor patient throughout the day.
--- NOTE | 2019-03-03 07:21 | NUR ---
HAND-OFF: Report given to Grecia Salguero per SBAR.
--- NOTE | 2019-03-03 07:22 | NUR ---
NURSE NOTES: Received patient from ANDREINA Delatorre. Patient awake and restless at this time. Patient nods when asked questions. Patient able to follow movement, react to name, and make eye contact. Patient orally intubated with size 7.0cm ET tube with 22cm at the lip line. Ventilator setting AC 16, tidal volume 500, FiO2 35%, and PEEP 5. Patient tolerating with no sign of acute distress. Patient showing atrial fib with rate of 84 beats per minute on the cardiac cath lab radiology technologist at this time. Patient has gastrostomy tube that is patent, asymptomatic, and running vital AF at 50mL/hr with no residual noted. Patient has rectal tube with light brown liquid stool noted. Patient has martinez for urine retention that is patent, asymptomatic, and draining light pauly urine at this time. Patient has generalized edema. Bilateral upper extremities pitting +4 and weeping. Bilateral lower leg pitting +2 and feet non-pitting. Patient has left heel DTI and sacral excoriation/partial thickness pressure ulcer noted as well as cyanosis of bilateral toes. Patient has left upper arm PICC line that is patent, asymptomatic, and running levophed at 4mcg/min at this time with blood pressure of 95/49. Will continue to monitor and titrate levophed per protocol. Patient has potassium of 5.3 this morning and magnesium of 1.6 this morning. Will ensure Dr Louis is aware. Bed in low position with bed alarm on and call light in reach at this time. Patient repositioned and oral care performed at this time. Will continue to monitor.
--- NOTE | 2019-03-03 07:32 | NUR ---
RESPIRATORY NOTES: Patient failed weaning trial immediately. RR increased to >38 bpm, VT decreased to <150mL, RSBI 120. Placed patient back onto ACVC settings.
--- NOTE | 2019-03-03 07:37 | General Progress Note ---
Assessment/Plan Status: stable, not improved, deteriorating Assessment/Plan: Assessment/Plan Status: stable, not improved, deteriorating Assessment/Plan: Assessment - GT dependent - Hepatitis C (+) - Abnormal LFT, ascites, thrombocytopenia - suspect chronic liver disease - Lactic acidosis - Resp failure - OBS / Delirium - Azotemia - Diarrhea - improved off of lactulose - poor PX Recommendations - supportive care - Abx per ID Subjective ROS Limited/Unobtainable: No Allergies: Coded Allergies: No Known Allergies (Unverified , 02/19/19) Objective Last 24 Hour Vital Signs Date Time Temp Pulse Resp B/P (MAP) Pulse Ox O2 Delivery O2 Flow Rate FiO2 03/03/19 07:29 88 27 35 03/03/19 07:15 87 19 96/60 (72) 98 03/03/19 07:00 88 16 95/49 (64) 98 03/03/19 06:55 98.4 03/03/19 06:45 87 16 87/53 (64) 97 03/03/19 06:30 90 14 99/85 (90) 96 03/03/19 06:00 86 22 97/58 (71) 03/03/19 06:00 97/58 03/03/19 05:45 89 22 99/54 (69) 98 03/03/19 05:30 87 18 106/58 (74) 03/03/19 05:03 87 16 35 03/03/19 05:00 87 20 100/52 (68) 100 03/03/19 05:00 94/54 03/03/19 04:30 91 21 103/83 (90) 100 03/03/19 04:15 93 20 97/64 (75) 99 03/03/19 04:00 Mechanical Ventilator 03/03/19 04:00 88 03/03/19 04:00 94/54 03/03/19 04:00 98.4 87 17 94/54 (67) 99 03/03/19 04:00 35 03/03/19 03:45 85 23 93/48 (63) 99 03/03/19 03:30 84 16 93/54 (67) 99 03/03/19 03:15 86 22 92/55 (67) 99 03/03/19 03:12 88 23 35 03/03/19 03:00 92/55 03/03/19 03:00 88 21 97/75 (82) 99 03/03/19 02:45 88 21 92/57 (69) 99 03/03/19 02:30 88 21 92/57 (69) 99 03/03/19 02:00 84 16 84/48 (60) 98 03/03/19 02:00 84/48 03/03/19 01:45 87 16 83/50 (61) 98 03/03/19 01:30 91 19 92/51 (65) 98 03/03/19 01:15 84 20 91/46 (61) 99 03/03/19 01:00 88 19 87/55 (66) 99 03/03/19 01:00 87/55 03/03/19 00:59 90 18 35 03/03/19 00:30 99 18 101/60 (74) 99 03/03/19 00:23 105 99/59 03/03/19 00:15 101 19 99/59 (72) 100 03/03/19 00:00 98.6 102 19 111/62 (78) 100 03/03/19 00:00 111/62 03/03/19 00:00 Mechanical Ventilator 03/03/19 00:00 102 03/03/19 00:00 35 03/02/19 23:45 100 20 98/63 (75) 99 03/02/19 23:30 107 25 137/75 (95) 100 03/02/19 23:19 102 22 121/60 (80) 99 03/02/19 23:17 101 19 35 03/02/19 23:15 101 25 77/61 (66) 99 03/02/19 23:00 110/61 03/02/19 23:00 99 25 110/61 (77) 99 03/02/19 22:45 98 23 94/56 (69) 99 03/02/19 22:30 97 18 101/64 (76) 100 03/02/19 22:15 99 16 96/52 (67) 100 03/02/19 22:00 98 23 79/56 (64) 99 03/02/19 22:00 101/64 03/02/19 21:45 105 16 148/94 (112) 99 03/02/19 21:30 102 16 102/59 (73) 98 03/02/19 21:15 103 16 102/56 (71) 99 03/02/19 21:00 107/67 03/02/19 21:00 98.5 103 18 107/67 (80) 99 03/02/19 20:57 102 18 35 03/02/19 20:45 103 20 108/61 (77) 100 03/02/19 20:30 105 23 102/60 (74) 100 03/02/19 20:15 106 25 101/55 (70) 100 03/02/19 20:00 Mechanical Ventilator 03/02/19 20:00 102/68 03/02/19 20:00 105 03/02/19 20:00 35 03/02/19 20:00 98.6 108 23 102/68 (79) 99 03/02/19 19:45 106 18 116/65 (82) 100 03/02/19 19:30 98.5 106 17 101/51 (68) 03/02/19 19:00 98.7 105 19 116/63 (80) 99 03/02/19 18:58 104 16 35 03/02/19 18:53 101/60 03/02/19 18:45 99.0 110 30 101/60 (74) 03/02/19 18:30 111 32 101/56 (71) 03/02/19 18:00 119/57 03/02/19 18:00 114 22 119/57 (77) 03/02/19 17:30 107 17 93/48 (63) 03/02/19 17:00 105 16 97/58 (71) 98 03/02/19 17:00 97/58 03/02/19 16:48 116 26 35 03/02/19 16:00 106 17 131/65 (87) 98 03/02/19 16:00 98.4 106 17 131/65 (87) 98 03/02/19 16:00 105 03/02/19 16:00 35 03/02/19 16:00 131/65 03/02/19 16:00 Mechanical Ventilator 03/02/19 15:20 106 17 35 03/02/19 15:00 99/52 03/02/19 15:00 111 23 99/52 (68) 100 03/02/19 14:45 108 20 93/52 (66) 99 03/02/19 14:30 111 17 95/53 (67) 100 03/02/19 14:15 111 20 120/58 (78) 100 03/02/19 14:00 109 17 96/51 (66) 100 03/02/19 14:00 96/51 03/02/19 13:45 106 16 103/60 (74) 100 03/02/19 13:30 109 23 104/67 (79) 100 03/02/19 13:23 106 03/02/19 13:15 108 17 93/55 (68) 100 03/02/19 13:12 112 16 35 03/02/19 13:00 94/57 03/02/19 13:00 107 16 94/57 (69) 100 03/02/19 12:45 109 24 91/52 (65) 100 03/02/19 12:30 111 16 116/50 (72) 99 03/02/19 12:15 109 20 98/54 (69) 100 03/02/19 12:00 107 03/02/19 12:00 99.0 113 22 95/69 (78) 100 03/02/19 12:00 98/54 03/02/19 12:00 35 03/02/19 12:00 Mechanical Ventilator 03/02/19 11:45 115 19 91/59 (70) 100 03/02/19 11:30 114 25 69/48 (55) 99 03/02/19 11:15 112 16 96/53 (67) 100 03/02/19 11:15 69/48 03/02/19 11:00 110 16 86/58 (67) 99 03/02/19 11:00 96/53 03/02/19 10:45 114 17 90/58 (69) 100 03/02/19 10:30 113 26 94/56 (69) 100 03/02/19 10:30 117 18 35 03/02/19 10:15 113 20 96/59 (71) 100 03/02/19 10:00 101/71 03/02/19 10:00 113 21 101/71 (81) 100 03/02/19 09:45 113 25 93/52 (66) 100 03/02/19 09:30 110 17 87/51 (63) 99 03/02/19 09:23 83/57 03/02/19 09:00 111 28 88/53 (65) 100 03/02/19 09:00 105 03/02/19 08:56 100 03/02/19 08:56 123 22 35 03/02/19 08:00 Mechanical Ventilator 03/02/19 08:00 99.7 101 16 86/48 (61) 03/02/19 08:00 35 Intake and Output 03/02/19 03/03/19 18:59 06:59 Intake Total 825.2335 ml 984.99 ml Output Total 410 ml 310 ml Balance 415.2335 ml 674.99 ml Free Water 20 ml 60 ml IV Total 205.2335 ml 74.99 ml Tube Feeding 600 ml 600 ml Blood Product 250 ml Output Urine Total 360 ml 310 ml Stool Total 50 ml Laboratory Tests 03/02/19 08:29: White Blood Count 12.4H, Red Blood Count 2.22L, Hemoglobin 7.2L, Hematocrit 23.0L, Mean Corpuscular Volume 104H, Mean Corpuscular Hemoglobin 32.6H, Mean Corpuscular Hemoglobin Concent 31.5L, Red Cell Distribution Width 18.9H, Platelet Count 70L, Mean Platelet Volume 8.1, Neutrophils (%) (Auto) , Lymphocytes (%) (Auto) , Monocytes (%) (Auto) , Eosinophils (%) (Auto) , Basophils (%) (Auto) , Differential Total Cells Counted 100, Neutrophils % ( Manual) 89H, Lymphocytes % (Manual) 3L, Monocytes % (Manual) 8, Eosinophils % ( Manual) 0, Basophils % (Manual) 0, Band Neutrophils 0, Platelet Estimate DecreasedL, Platelet Morphology Normal, Hypochromasia 1+, Anisocytosis 2+, Macrocytosis 1+, Sodium Level 141, Potassium Level 4.9, Chloride Level 113H, Carbon Dioxide Level 30, Anion Gap -2L, Blood Urea Nitrogen 29H, Creatinine 1.1 , Estimat Glomerular Filtration Rate , Glucose Level 161H, Calcium Level 7.5L, Phosphorus Level 2.2L, Magnesium Level 1.8, Total Bilirubin 2.1H, Direct Bilirubin 1.5H, Aspartate Amino Transf (AST/SGOT) 100H, Alanine Aminotransferase (ALT/SGPT) 63, Alkaline Phosphatase 174H, Total Protein 5.3L, Albumin 1.7L, Globulin 3.6, Albumin/Globulin Ratio 0.5L, Digoxin Level 1.8 11/23/19 05:05: White Blood Count 12.0H, Red Blood Count 2.79L, Hemoglobin 9.0L, Hematocrit 28.1L, Mean Corpuscular Volume 101H, Mean Corpuscular Hemoglobin 32.3H, Mean Corpuscular Hemoglobin Concent 32.0, Red Cell Distribution Width 19.0H, Platelet Count 56L, Mean Platelet Volume 7.4, Neutrophils (%) (Auto) , Lymphocytes (%) (Auto) , Monocytes (%) (Auto) , Eosinophils (%) (Auto) , Basophils (%) (Auto) , Neutrophils % (Manual) [Pending], Lymphocytes % (Manual) [Pending], Platelet Estimate [Pending], Platelet Morphology [Pending], Sodium Level 142, Potassium Level 5.3H, Chloride Level 112H, Carbon Dioxide Level 24, Anion Gap 6, Blood Urea Nitrogen 29H, Creatinine 1.0, Estimat Glomerular Filtration Rate , Glucose Level 159H, Calcium Level 7.8L, Phosphorus Level 2.9, Magnesium Level 1.6L, Total Bilirubin 2.5H, Direct Bilirubin 1.7H, Aspartate Amino Transf (AST/SGOT) 89H, Alanine Aminotransferase (ALT/SGPT) 56, Alkaline Phosphatase 187H, Total Protein 5.5L, Albumin 1.6L, Globulin 3.9, Albumin/ Globulin Ratio 0.4L, Uric Acid 6.7, C-Reactive Protein, Quantitative 24.0H, Pro- B-Type Natriuretic Peptide [id number] Height (Feet): 5 Height (Inches): 6.00 Weight (Pounds): 157 General Appearance: no apparent distress EENT: normal ENT inspection Neck: supple Cardiovascular: normal rate Respiratory/Chest: decreased breath sounds Abdomen: normal bowel sounds, non tender, soft Extremities: non-tender Ede Silvestre MD Mar 03, 2019 07:37
[2019-03-03] MEDS ORDERED: Sodium Polystyrene Sulfonate 15gm Powder NG SCH (07:45)
--- NOTE | 2019-03-03 08:00 | NUR ---
NURSE NOTES: Patient blood pressure 82/52. Levophed increased to 6mcg/min. Will continue to monitor and titrate medication per protocol.
[2019-03-03] MEDS: Pantoprazole Inj IVP SCH ×2 (08:28→20:03)
--- NOTE | 2019-03-03 08:52 | Diagnostic Imaging Report ---
EXAM: XR Chest, 1 View CLINICAL HISTORY: F/U TECHNIQUE: Frontal view of the chest. COMPARISON: Chest x-rays dated 02/22/19 FINDINGS: Limitations: Exam degraded by rotation. Lungs: Patchy consolidation in the lung bases, greater on the left, which may represent atelectasis versus pneumonia. Pleural space: Small bilateral pleural effusions. Heart: Cardiomegaly. Mediastinum: Unremarkable. Bones/joints: Unremarkable. Tubes, lines and devices: Expected positioning of an endotracheal tube with its tip 3.5 cm above the nikolay. Telemetry leads overlie the thorax. IMPRESSION: 1. Findings suggesting CHF, with cardiomegaly and small bilateral pleural effusions. 2. Patchy consolidation in the lung bases, greater on the left, which may represent atelectasis versus pneumonia.
--- NOTE | 2019-03-03 09:11 | Critical Care Progress Note ---
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, chronic atrial fibrillation, hypertension, diastolic congestive heart failure, septic shock, hypothermia, hypotension, hypoxemia severe PCM, thrombocytopenia, anemia, leukocytosis, acute renal failure Vent support PLAN care noted and reviewed in detail vent management - still on full vent support monitor secretions and vent settings and imaging for change keep negative as per cardiology meds reviewed monitor acid base support as able and discuss full code as outlined pressors as needed- monitor vitals IV antibiotics and cultures noted respiratory care SNF meds supportive care as outline suction and monitor imaging monitor for aspiration and change oxygen therapy as needed all care reviewed in detail ICU care reviewed close follow up of acid base for now remains critical at present medications/laboratory data/nursing notes/ICU care reviewed in detail note reviewed and edited care discussed with RN and RT ICU time spent 40 minutes Critical Care - Subjective Interval Events: still on full vent support care noted difficulty weaning ICU care reviewed ROS Limited/Unobtainable: Yes Residuals: minimal Tube Feeding Tolerated: yes I&O: Intake and Output 03/02/19 03/03/19 18:59 06:59 Intake Total 825.2335 ml 984.99 ml Output Total 410 ml 310 ml Balance 415.2335 ml 674.99 ml Free Water 20 ml 60 ml IV Total 205.2335 ml 74.99 ml Tube Feeding 600 ml 600 ml Blood Product 250 ml Output Urine Total 360 ml 310 ml Stool Total 50 ml Critical Care - Objective CXR: CHF ET-Tube: 7.0 ET Position: 22 Last 24 Hour Vital Signs Date Time Temp Pulse Resp B/P (MAP) Pulse Ox O2 Delivery O2 Flow Rate FiO2 03/03/19 08:55 89 16 35 03/03/19 08:28 90 108/55 03/03/19 08:00 35 03/03/19 08:00 Mechanical Ventilator 03/03/19 08:00 99.1 83 12 86/54 (65) 99 03/03/19 07:45 90 23 106/74 (85) 99 03/03/19 07:30 88 19 88/31 (50) 100 03/03/19 07:29 88 27 35 03/03/19 07:15 87 19 96/60 (72) 98 03/03/19 07:00 88 16 95/49 (64) 98 03/03/19 06:55 98.4 03/03/19 06:45 87 16 87/53 (64) 97 03/03/19 06:30 90 14 99/85 (90) 96 03/03/19 06:00 86 22 97/58 (71) 03/03/19 06:00 97/58 03/03/19 05:45 89 22 99/54 (69) 98 03/03/19 05:30 87 18 106/58 (74) 03/03/19 05:03 87 16 35 03/03/19 05:00 87 20 100/52 (68) 100 03/03/19 05:00 94/54 03/03/19 04:30 91 21 103/83 (90) 100 03/03/19 04:15 93 20 97/64 (75) 99 03/03/19 04:00 Mechanical Ventilator 03/03/19 04:00 88 03/03/19 04:00 94/54 03/03/19 04:00 98.4 87 17 94/54 (67) 99 03/03/19 04:00 35 03/03/19 03:45 85 23 93/48 (63) 99 03/03/19 03:30 84 16 93/54 (67) 99 03/03/19 03:15 86 22 92/55 (67) 99 03/03/19 03:12 88 23 35 03/03/19 03:00 92/55 03/03/19 03:00 88 21 97/75 (82) 99 03/03/19 02:45 88 21 92/57 (69) 99 03/03/19 02:30 88 21 92/57 (69) 99 03/03/19 02:00 84 16 84/48 (60) 98 03/03/19 02:00 84/48 03/03/19 01:45 87 16 83/50 (61) 98 03/03/19 01:30 91 19 92/51 (65) 98 03/03/19 01:15 84 20 91/46 (61) 99 03/03/19 01:00 88 19 87/55 (66) 99 03/03/19 01:00 87/55 03/03/19 00:59 90 18 35 03/03/19 00:30 99 18 101/60 (74) 99 03/03/19 00:23 105 99/59 03/03/19 00:15 101 19 99/59 (72) 100 03/03/19 00:00 98.6 102 19 111/62 (78) 100 03/03/19 00:00 111/62 03/03/19 00:00 Mechanical Ventilator 03/03/19 00:00 102 03/03/19 00:00 35 03/02/19 23:45 100 20 98/63 (75) 99 03/02/19 23:30 107 25 137/75 (95) 100 03/02/19 23:19 102 22 121/60 (80) 99 03/02/19 23:17 101 19 35 03/02/19 23:15 101 25 77/61 (66) 99 03/02/19 23:00 110/61 03/02/19 23:00 99 25 110/61 (77) 99 03/02/19 22:45 98 23 94/56 (69) 99 03/02/19 22:30 97 18 101/64 (76) 100 03/02/19 22:15 99 16 96/52 (67) 100 03/02/19 22:00 98 23 79/56 (64) 99 03/02/19 22:00 101/64 03/02/19 21:45 105 16 148/94 (112) 99 03/02/19 21:30 102 16 102/59 (73) 98 03/02/19 21:15 103 16 102/56 (71) 99 03/02/19 21:00 107/67 03/02/19 21:00 98.5 103 18 107/67 (80) 99 03/02/19 20:57 102 18 35 03/02/19 20:45 103 20 108/61 (77) 100 03/02/19 20:30 105 23 102/60 (74) 100 03/02/19 20:15 106 25 101/55 (70) 100 03/02/19 20:00 Mechanical Ventilator 03/02/19 20:00 102/68 03/02/19 20:00 105 03/02/19 20:00 35 03/02/19 20:00 98.6 108 23 102/68 (79) 99 03/02/19 19:45 106 18 116/65 (82) 100 03/02/19 19:30 98.5 106 17 101/51 (68) 03/02/19 19:00 98.7 105 19 116/63 (80) 99 03/02/19 18:58 104 16 35 03/02/19 18:53 101/60 03/02/19 18:45 99.0 110 30 101/60 (74) 03/02/19 18:30 111 32 101/56 (71) 03/02/19 18:00 119/57 03/02/19 18:00 114 22 119/57 (77) 03/02/19 17:30 107 17 93/48 (63) 03/02/19 17:00 105 16 97/58 (71) 98 03/02/19 17:00 97/58 03/02/19 16:48 116 26 35 03/02/19 16:00 106 17 131/65 (87) 98 03/02/19 16:00 98.4 106 17 131/65 (87) 98 03/02/19 16:00 105 03/02/19 16:00 35 03/02/19 16:00 131/65 03/02/19 16:00 Mechanical Ventilator 03/02/19 15:20 106 17 35 03/02/19 15:00 99/52 03/02/19 15:00 111 23 99/52 (68) 100 03/02/19 14:45 108 20 93/52 (66) 99 03/02/19 14:30 111 17 95/53 (67) 100 03/02/19 14:15 111 20 120/58 (78) 100 03/02/19 14:00 109 17 96/51 (66) 100 03/02/19 14:00 96/51 03/02/19 13:45 106 16 103/60 (74) 100 03/02/19 13:30 109 23 104/67 (79) 100 03/02/19 13:23 106 03/02/19 13:15 108 17 93/55 (68) 100 03/02/19 13:12 112 16 35 03/02/19 13:00 94/57 03/02/19 13:00 107 16 94/57 (69) 100 03/02/19 12:45 109 24 91/52 (65) 100 03/02/19 12:30 111 16 116/50 (72) 99 03/02/19 12:15 109 20 98/54 (69) 100 03/02/19 12:00 107 11/22/19 12:00 99.0 113 22 95/69 (78) 100 03/02/19 12:00 98/54 03/02/19 12:00 35 03/02/19 12:00 Mechanical Ventilator 03/02/19 11:45 115 19 91/59 (70) 100 03/02/19 11:30 114 25 69/48 (55) 99 03/02/19 11:15 112 16 96/53 (67) 100 03/02/19 11:15 69/48 03/02/19 11:00 110 16 86/58 (67) 99 03/02/19 11:00 96/53 03/02/19 10:45 114 17 90/58 (69) 100 03/02/19 10:30 113 26 94/56 (69) 100 03/02/19 10:30 117 18 35 03/02/19 10:15 113 20 96/59 (71) 100 03/02/19 10:00 101/71 03/02/19 10:00 113 21 101/71 (81) 100 03/02/19 09:45 113 25 93/52 (66) 100 03/02/19 09:30 110 17 87/51 (63) 99 03/02/19 09:23 83/57 Labs: Laboratory Tests Test 03/03/19 05:05 White Blood Count 12.0 K/UL (4.8-10.8) H Red Blood Count 2.79 M/UL (4.20-5.40) L Hemoglobin 9.0 G/DL (12.0-16.0) L Hematocrit 28.1 % (37.0-47.0) L Mean Corpuscular Volume 101 FL (80-99) H Mean Corpuscular Hemoglobin 32.3 PG (27.0-31.0) H Mean Corpuscular Hemoglobin Concent 32.0 G/DL (32.0-36.0) Red Cell Distribution Width 19.0 % (11.6-14.8) H Platelet Count 56 K/UL (150-450) L Mean Platelet Volume 7.4 FL (6.5-10.1) Neutrophils (%) (Auto) % (45.0-75.0) Lymphocytes (%) (Auto) % (20.0-45.0) Monocytes (%) (Auto) % (1.0-10.0) Eosinophils (%) (Auto) % (0.0-3.0) Basophils (%) (Auto) % (0.0-2.0) Neutrophils % (Manual) Pending Lymphocytes % (Manual) Pending Platelet Estimate Pending Platelet Morphology Pending Sodium Level 142 MMOL/L (136-145) Potassium Level 5.3 MMOL/L (3.5-5.1) H Chloride Level 112 MMOL/L (98-107) H Carbon Dioxide Level 24 MMOL/L (21-32) Anion Gap 6 mmol/L (5-15) Blood Urea Nitrogen 29 mg/dL (7-18) H Creatinine 1.0 MG/DL (0.55-1.30) Estimat Glomerular Filtration Rate mL/min (>60) Glucose Level 159 MG/DL (74-106) H Uric Acid 6.7 MG/DL (2.6-7.2) Calcium Level 7.8 MG/DL (8.5-10.1) L Phosphorus Level 2.9 MG/DL (2.5-4.9) Magnesium Level 1.6 MG/DL (1.8-2.4) L Total Bilirubin 2.5 MG/DL (0.2-1.0) H Direct Bilirubin 1.7 MG/DL (0.0-0.3) H Aspartate Amino Transf (AST/SGOT) 89 U/L (15-37) H Alanine Aminotransferase (ALT/SGPT) 56 U/L (12-78) Alkaline Phosphatase 187 U/L (46-116) H C-Reactive Protein, Quantitative 24.0 mg/dL (0.00-0.90) H Pro-B-Type Natriuretic Peptide 26369 pg/mL (0-125) H Total Protein 5.5 G/DL (6.4-8.2) L Albumin 1.6 G/DL (3.4-5.0) L Globulin 3.9 g/dL Albumin/Globulin Ratio 0.4 (1.0-2.7) L Objective: PHYSICAL EXAMINATION: GENERAL: The patient is a chronically ill-appearing female, on VENT and not weaning yet NECK: Supple. There is a central line in the right subclavian area. HEART: iRRR.without MRG LUNGS: reduced breath sounds with some rhonchi; no wheeze ABDOMEN: Soft, nontender, nondistended. no HSM EXTREMITIES: No clubbing, cyanosis, or edema. NEURO: response to pain skin noted Accucheck: 72 Jan Anderson MD Mar 03, 2019 09:11
[2019-03-03] MEDS ORDERED: D5W 550ml IV ONE (10:00)
[2019-03-03] MEDS ORDERED: NS Irrig 1000ml ONE (10:00)
[2019-03-03] MEDS ORDERED: Tubing Blood Filter IV ONE (10:00)
[2019-03-03] MEDS ORDERED: NS 275ml ONE ×3 (10:00→16:01)
[2019-03-03] MEDS ORDERED: Tubing IV Secondary IV ONE ×3 (10:00→16:01)
--- NOTE | 2019-03-03 10:30 | NUR ---
NURSE NOTES: BP 86/53. Levophed increased to 8mcg/hr. Will continue to monitor and titrate Levophed per protocol. Patient repositioned at this time.
--- NOTE | 2019-03-03 10:51 | Infectious Diseases Prog Note ---
Assessment/Plan Assessment/Plan antibiotics ; levoquin A 1. pneumonia 2. fungal UTI s/p rx 3. renal failure 4. septic shock 5. CHF 6. dementia 7. thrombocytopenia 8. respiratory failure P 1. continue po levoquin 1 more day 2. will follow up cultures Subjective ROS Limited/Unobtainable: Yes Allergies: Coded Allergies: No Known Allergies (Unverified , 02/19/19) Objective Vital Signs Last 24 Hour Vital Signs Date Time Temp Pulse Resp B/P (MAP) Pulse Ox O2 Delivery O2 Flow Rate FiO2 03/03/19 09:34 99/55 03/03/19 08:55 89 16 35 03/03/19 08:28 90 108/55 03/03/19 08:00 35 03/03/19 08:00 Mechanical Ventilator 03/03/19 08:00 99.1 83 12 86/54 (65) 99 03/03/19 07:45 90 23 106/74 (85) 99 03/03/19 07:30 88 19 88/31 (50) 100 03/03/19 07:29 88 27 35 03/03/19 07:15 87 19 96/60 (72) 98 03/03/19 07:00 88 16 95/49 (64) 98 03/03/19 06:55 98.4 03/03/19 06:45 87 16 87/53 (64) 97 03/03/19 06:30 90 14 99/85 (90) 96 03/03/19 06:00 86 22 97/58 (71) 03/03/19 06:00 97/58 03/03/19 05:45 89 22 99/54 (69) 98 03/03/19 05:30 87 18 106/58 (74) 03/03/19 05:03 87 16 35 03/03/19 05:00 87 20 100/52 (68) 100 03/03/19 05:00 94/54 03/03/19 04:30 91 21 103/83 (90) 100 03/03/19 04:15 93 20 97/64 (75) 99 03/03/19 04:00 Mechanical Ventilator 03/03/19 04:00 88 03/03/19 04:00 94/54 03/03/19 04:00 98.4 87 17 94/54 (67) 99 11/23/19 04:00 35 03/03/19 03:45 85 23 93/48 (63) 99 03/03/19 03:30 84 16 93/54 (67) 99 03/03/19 03:15 86 22 92/55 (67) 99 03/03/19 03:12 88 23 35 03/03/19 03:00 92/55 03/03/19 03:00 88 21 97/75 (82) 99 03/03/19 02:45 88 21 92/57 (69) 99 03/03/19 02:30 88 21 92/57 (69) 99 03/03/19 02:00 84 16 84/48 (60) 98 03/03/19 02:00 84/48 03/03/19 01:45 87 16 83/50 (61) 98 03/03/19 01:30 91 19 92/51 (65) 98 03/03/19 01:15 84 20 91/46 (61) 99 03/03/19 01:00 88 19 87/55 (66) 99 03/03/19 01:00 87/55 03/03/19 00:59 90 18 35 03/03/19 00:30 99 18 101/60 (74) 99 03/03/19 00:23 105 99/59 03/03/19 00:15 101 19 99/59 (72) 100 03/03/19 00:00 98.6 102 19 111/62 (78) 100 03/03/19 00:00 111/62 03/03/19 00:00 Mechanical Ventilator 03/03/19 00:00 102 03/03/19 00:00 35 03/02/19 23:45 100 20 98/63 (75) 99 03/02/19 23:30 107 25 137/75 (95) 100 03/02/19 23:19 102 22 121/60 (80) 99 03/02/19 23:17 101 19 35 03/02/19 23:15 101 25 77/61 (66) 99 03/02/19 23:00 110/61 03/02/19 23:00 99 25 110/61 (77) 99 03/02/19 22:45 98 23 94/56 (69) 99 03/02/19 22:30 97 18 101/64 (76) 100 03/02/19 22:15 99 16 96/52 (67) 100 03/02/19 22:00 98 23 79/56 (64) 99 03/02/19 22:00 101/64 03/02/19 21:45 105 16 148/94 (112) 99 03/02/19 21:30 102 16 102/59 (73) 98 03/02/19 21:15 103 16 102/56 (71) 99 03/02/19 21:00 107/67 03/02/19 21:00 98.5 103 18 107/67 (80) 99 03/02/19 20:57 102 18 35 03/02/19 20:45 103 20 108/61 (77) 100 03/02/19 20:30 105 23 102/60 (74) 100 03/02/19 20:15 106 25 101/55 (70) 100 03/02/19 20:00 Mechanical Ventilator 03/02/19 20:00 102/68 03/02/19 20:00 105 03/02/19 20:00 35 03/02/19 20:00 98.6 108 23 102/68 (79) 99 03/02/19 19:45 106 18 116/65 (82) 100 03/02/19 19:30 98.5 106 17 101/51 (68) 03/02/19 19:00 98.7 105 19 116/63 (80) 99 03/02/19 18:58 104 16 35 03/02/19 18:53 101/60 03/02/19 18:45 99.0 110 30 101/60 (74) 03/02/19 18:30 111 32 101/56 (71) 03/02/19 18:00 119/57 03/02/19 18:00 114 22 119/57 (77) 03/02/19 17:30 107 17 93/48 (63) 03/02/19 17:00 105 16 97/58 (71) 98 03/02/19 17:00 97/58 03/02/19 16:48 116 26 35 03/02/19 16:00 106 17 131/65 (87) 98 03/02/19 16:00 98.4 106 17 131/65 (87) 98 03/02/19 16:00 105 03/02/19 16:00 35 03/02/19 16:00 131/65 03/02/19 16:00 Mechanical Ventilator 03/02/19 15:20 106 17 35 03/02/19 15:00 99/52 03/02/19 15:00 111 23 99/52 (68) 100 03/02/19 14:45 108 20 93/52 (66) 99 03/02/19 14:30 111 17 95/53 (67) 100 03/02/19 14:15 111 20 120/58 (78) 100 03/02/19 14:00 109 17 96/51 (66) 100 03/02/19 14:00 96/51 03/02/19 13:45 106 16 103/60 (74) 100 03/02/19 13:30 109 23 104/67 (79) 100 03/02/19 13:23 106 03/02/19 13:15 108 17 93/55 (68) 100 03/02/19 13:12 112 16 35 03/02/19 13:00 94/57 03/02/19 13:00 107 16 94/57 (69) 100 03/02/19 12:45 109 24 91/52 (65) 100 03/02/19 12:30 111 16 116/50 (72) 99 03/02/19 12:15 109 20 98/54 (69) 100 03/02/19 12:00 107 03/02/19 12:00 99.0 113 22 95/69 (78) 100 03/02/19 12:00 98/54 03/02/19 12:00 35 03/02/19 12:00 Mechanical Ventilator 03/02/19 11:45 115 19 91/59 (70) 100 03/02/19 11:30 114 25 69/48 (55) 99 03/02/19 11:15 112 16 96/53 (67) 100 03/02/19 11:15 69/48 03/02/19 11:00 110 16 86/58 (67) 99 03/02/19 11:00 96/53 Height (Feet): 5 Height (Inches): 6.00 Weight (Pounds): 157 HEENT: other - intubated Respiratory/Chest: lungs clear Cardiovascular: normal rate, regular rhythm, no gallop/murmur Abdomen: soft, non tender, other - GT Extremities: no edema, other - left arm PICC Laboratory Tests Test 03/03/19 05:05 White Blood Count 12.0 K/UL (4.8-10.8) H Red Blood Count 2.79 M/UL (4.20-5.40) L Hemoglobin 9.0 G/DL (12.0-16.0) L Hematocrit 28.1 % (37.0-47.0) L Mean Corpuscular Volume 101 FL (80-99) H Mean Corpuscular Hemoglobin 32.3 PG (27.0-31.0) H Mean Corpuscular Hemoglobin Concent 32.0 G/DL (32.0-36.0) Red Cell Distribution Width 19.0 % (11.6-14.8) H Platelet Count 56 K/UL (150-450) L Mean Platelet Volume 7.4 FL (6.5-10.1) Neutrophils (%) (Auto) % (45.0-75.0) Lymphocytes (%) (Auto) % (20.0-45.0) Monocytes (%) (Auto) % (1.0-10.0) Eosinophils (%) (Auto) % (0.0-3.0) Basophils (%) (Auto) % (0.0-2.0) Differential Total Cells Counted 100 Neutrophils % (Manual) 91 % (45-75) H Lymphocytes % (Manual) 3 % (20-45) L Monocytes % (Manual) 4 % (1-10) Eosinophils % (Manual) 0 % (0-3) Basophils % (Manual) 0 % (0-2) Band Neutrophils 2 % (0-8) Platelet Estimate Decreased L Platelet Morphology Normal Hypochromasia 2+ Anisocytosis 2+ Macrocytosis 1+ Spherocytes 1+ Sodium Level 142 MMOL/L (136-145) Potassium Level 5.3 MMOL/L (3.5-5.1) H Chloride Level 112 MMOL/L (98-107) H Carbon Dioxide Level 24 MMOL/L (21-32) Anion Gap 6 mmol/L (5-15) Blood Urea Nitrogen 29 mg/dL (7-18) H Creatinine 1.0 MG/DL (0.55-1.30) Estimat Glomerular Filtration Rate mL/min (>60) Glucose Level 159 MG/DL (74-106) H Uric Acid 6.7 MG/DL (2.6-7.2) Calcium Level 7.8 MG/DL (8.5-10.1) L Phosphorus Level 2.9 MG/DL (2.5-4.9) Magnesium Level 1.6 MG/DL (1.8-2.4) L Total Bilirubin 2.5 MG/DL (0.2-1.0) H Direct Bilirubin 1.7 MG/DL (0.0-0.3) H Aspartate Amino Transf (AST/SGOT) 89 U/L (15-37) H Alanine Aminotransferase (ALT/SGPT) 56 U/L (12-78) Alkaline Phosphatase 187 U/L (46-116) H C-Reactive Protein, Quantitative 24.0 mg/dL (0.00-0.90) H Pro-B-Type Natriuretic Peptide 94500 pg/mL (0-125) H Total Protein 5.5 G/DL (6.4-8.2) L Albumin 1.6 G/DL (3.4-5.0) L Globulin 3.9 g/dL Albumin/Globulin Ratio 0.4 (1.0-2.7) L Current Medications Medications (Trade) Dose Ordered Sig/Pam Route PRN Reason Start Time Stop Time Status Last Admin Dose Admin Acetaminophen (Tylenol) 650 mg Q4H PRN ORAL Mild Pain/Temp > 100.5 02/19/19 17:15 03/21/19 17:14 03/03/19 06:18 Carvedilol (Coreg) 3.125 mg EVERY 12 HOURS GT 03/02/19 23:30 04/01/19 23:29 03/03/19 08:28 Chlorhexidine Gluconate (Dayna-Hex 2%) 1 applic DAILY@1999 TOPIC 02/20/19 20:00 03/22/19 19:59 03/02/19 20:02 Levofloxacin (Levaquin) 250 mg DAILY ORAL 02/27/19 09:00 03/04/19 23:59 03/03/19 08:28 Midodrine (Pro-Amatine) 2.5 mg THREE TIMES A DAY NG 03/02/19 13:15 04/01/19 13:14 03/03/19 08:28 Norepinephrine Bitartrate 8 mg/ Dextrose 250 ml @ 0 mls/hr Q24H IV 03/03/19 08:30 04/02/19 08:29 03/03/19 09:34 Pantoprazole (Protonix) 40 mg Q12HR IVP 02/20/19 21:00 03/21/19 17:59 03/03/19 08:28 Sodium Polystyrene Sulfonate (Kayexalate) 30 gm ONCE NG 03/03/19 07:45 04/02/19 09:00 03/03/19 08:27 Shelbie Howell MD Mar 03, 2019 10:51
--- NOTE | 2019-03-03 11:13 | General Progress Note ---
Assessment/Plan Problem List: (1) Septic shock ICD Codes: A41.9 - Sepsis, unspecified organism; R65.21 - Severe sepsis with septic shock SNOMED: 33870381 (2) UTI (urinary tract infection) ICD Codes: N39.0 - Urinary tract infection, site not specified SNOMED: 43845078 Qualifiers: Qualified Codes: N39.0 - Urinary tract infection, site not specified (3) Renal failure ICD Codes: N19 - Unspecified kidney failure SNOMED: 49781427 Qualifiers: Qualified Codes: N17.9 - Acute kidney failure, unspecified (4) Abdominal pain ICD Codes: R10.9 - Unspecified abdominal pain SNOMED: 55479975 Qualifiers: Qualified Codes: R10.32 - Left lower quadrant pain (5) Severe sepsis ICD Codes: A41.9 - Sepsis, unspecified organism; R65.20 - Severe sepsis without septic shock SNOMED: 56158159 (6) Dehydration ICD Codes: E86.0 - Dehydration SNOMED: 78023462 (7) Atrial fibrillation with rapid ventricular response ICD Codes: I48.91 - Unspecified atrial fibrillation SNOMED: 696196331764613 Status: stable, not improved, deteriorating Assessment/Plan: cont supportive care wean vent as able hope to avoid trach wean pressors resp rx and suctioning as needed monitor labs scd iv abx per id tube feeds Subjective ROS Limited/Unobtainable: Yes Constitutional: Reports: malaise, weakness HEENT: Reports: no symptoms Cardiovascular: Reports: no symptoms Respiratory: Reports: shortness of breath, sputum Gastrointestinal/Abdominal: Reports: difficulty swallowing Genitourinary: Reports: no symptoms Neurologic/Psychiatric: Reports: pre-existing deficit Endocrine: Reports: no symptoms Hematologic/Lymphatic: Reports: no symptoms Allergies: Coded Allergies: No Known Allergies (Unverified , 02/19/19) All Systems: reviewed and negative except above Subjective no events. back on pressors. no fevers. labs pending. failed wean yesterday Objective Last 24 Hour Vital Signs Date Time Temp Pulse Resp B/P (MAP) Pulse Ox O2 Delivery O2 Flow Rate FiO2 03/03/19 10:58 85 16 35 03/03/19 09:34 99/55 03/03/19 08:55 89 16 35 03/03/19 08:28 90 108/55 03/03/19 08:00 35 03/03/19 08:00 Mechanical Ventilator 03/03/19 08:00 99.1 83 12 86/54 (65) 99 03/03/19 07:45 90 23 106/74 (85) 99 03/03/19 07:30 88 19 88/31 (50) 100 03/03/19 07:29 88 27 35 03/03/19 07:15 87 19 96/60 (72) 98 03/03/19 07:00 88 16 95/49 (64) 98 03/03/19 06:55 98.4 03/03/19 06:45 87 16 87/53 (64) 97 03/03/19 06:30 90 14 99/85 (90) 96 03/03/19 06:00 86 22 97/58 (71) 03/03/19 06:00 97/58 03/03/19 05:45 89 22 99/54 (69) 98 03/03/19 05:30 87 18 106/58 (74) 03/03/19 05:03 87 16 35 03/03/19 05:00 87 20 100/52 (68) 100 03/03/19 05:00 94/54 03/03/19 04:30 91 21 103/83 (90) 100 03/03/19 04:15 93 20 97/64 (75) 99 03/03/19 04:00 Mechanical Ventilator 03/03/19 04:00 88 03/03/19 04:00 94/54 03/03/19 04:00 98.4 87 17 94/54 (67) 99 03/03/19 04:00 35 03/03/19 03:45 85 23 93/48 (63) 99 03/03/19 03:30 84 16 93/54 (67) 99 03/03/19 03:15 86 22 92/55 (67) 99 03/03/19 03:12 88 23 35 03/03/19 03:00 92/55 03/03/19 03:00 88 21 97/75 (82) 99 03/03/19 02:45 88 21 92/57 (69) 99 03/03/19 02:30 88 21 92/57 (69) 99 03/03/19 02:00 84 16 84/48 (60) 98 03/03/19 02:00 84/48 03/03/19 01:45 87 16 83/50 (61) 98 03/03/19 01:30 91 19 92/51 (65) 98 03/03/19 01:15 84 20 91/46 (61) 99 03/03/19 01:00 88 19 87/55 (66) 99 03/03/19 01:00 87/55 03/03/19 00:59 90 18 35 03/03/19 00:30 99 18 101/60 (74) 99 03/03/19 00:23 105 99/59 03/03/19 00:15 101 19 99/59 (72) 100 03/03/19 00:00 98.6 102 19 111/62 (78) 100 03/03/19 00:00 111/62 03/03/19 00:00 Mechanical Ventilator 03/03/19 00:00 102 03/03/19 00:00 35 03/02/19 23:45 100 20 98/63 (75) 99 03/02/19 23:30 107 25 137/75 (95) 100 03/02/19 23:19 102 22 121/60 (80) 99 03/02/19 23:17 101 19 35 03/02/19 23:15 101 25 77/61 (66) 99 03/02/19 23:00 110/61 03/02/19 23:00 99 25 110/61 (77) 99 03/02/19 22:45 98 23 94/56 (69) 99 03/02/19 22:30 97 18 101/64 (76) 100 03/02/19 22:15 99 16 96/52 (67) 100 03/02/19 22:00 98 23 79/56 (64) 99 03/02/19 22:00 101/64 03/02/19 21:45 105 16 148/94 (112) 99 03/02/19 21:30 102 16 102/59 (73) 98 03/02/19 21:15 103 16 102/56 (71) 99 03/02/19 21:00 107/67 03/02/19 21:00 98.5 103 18 107/67 (80) 99 03/02/19 20:57 102 18 35 03/02/19 20:45 103 20 108/61 (77) 100 11/22/19 20:30 105 23 102/60 (74) 100 03/02/19 20:15 106 25 101/55 (70) 100 03/02/19 20:00 Mechanical Ventilator 03/02/19 20:00 102/68 03/02/19 20:00 105 03/02/19 20:00 35 03/02/19 20:00 98.6 108 23 102/68 (79) 99 03/02/19 19:45 106 18 116/65 (82) 100 03/02/19 19:30 98.5 106 17 101/51 (68) 03/02/19 19:00 98.7 105 19 116/63 (80) 99 03/02/19 18:58 104 16 35 03/02/19 18:53 101/60 03/02/19 18:45 99.0 110 30 101/60 (74) 03/02/19 18:30 111 32 101/56 (71) 03/02/19 18:00 119/57 03/02/19 18:00 114 22 119/57 (77) 03/02/19 17:30 107 17 93/48 (63) 03/02/19 17:00 105 16 97/58 (71) 98 03/02/19 17:00 97/58 03/02/19 16:48 116 26 35 03/02/19 16:00 106 17 131/65 (87) 98 03/02/19 16:00 98.4 106 17 131/65 (87) 98 03/02/19 16:00 105 03/02/19 16:00 35 03/02/19 16:00 131/65 03/02/19 16:00 Mechanical Ventilator 03/02/19 15:20 106 17 35 03/02/19 15:00 99/52 03/02/19 15:00 111 23 99/52 (68) 100 03/02/19 14:45 108 20 93/52 (66) 99 03/02/19 14:30 111 17 95/53 (67) 100 03/02/19 14:15 111 20 120/58 (78) 100 03/02/19 14:00 109 17 96/51 (66) 100 03/02/19 14:00 96/51 03/02/19 13:45 106 16 103/60 (74) 100 03/02/19 13:30 109 23 104/67 (79) 100 03/02/19 13:23 106 03/02/19 13:15 108 17 93/55 (68) 100 03/02/19 13:12 112 16 35 03/02/19 13:00 94/57 03/02/19 13:00 107 16 94/57 (69) 100 03/02/19 12:45 109 24 91/52 (65) 100 03/02/19 12:30 111 16 116/50 (72) 99 03/02/19 12:15 109 20 98/54 (69) 100 03/02/19 12:00 107 03/02/19 12:00 99.0 113 22 95/69 (78) 100 03/02/19 12:00 98/54 03/02/19 12:00 35 03/02/19 12:00 Mechanical Ventilator 03/02/19 11:45 115 19 91/59 (70) 100 03/02/19 11:30 114 25 69/48 (55) 99 03/02/19 11:15 112 16 96/53 (67) 100 03/02/19 11:15 69/48 Intake and Output 03/02/19 03/03/19 19:00 07:00 Intake Total 825.2335 ml 984.99 ml Output Total 400 ml 410 ml Balance 425.2335 ml 574.99 ml Free Water 20 ml 60 ml IV Total 205.2335 ml 74.99 ml Tube Feeding 600 ml 600 ml Blood Product 250 ml Output Urine Total 350 ml 310 ml Stool Total 50 ml 100 ml Laboratory Tests 03/03/19 05:05: White Blood Count 12.0H, Red Blood Count 2.79L, Hemoglobin 9.0L, Hematocrit 28.1L, Mean Corpuscular Volume 101H, Mean Corpuscular Hemoglobin 32.3H, Mean Corpuscular Hemoglobin Concent 32.0, Red Cell Distribution Width 19.0H, Platelet Count 56L, Mean Platelet Volume 7.4, Neutrophils (%) (Auto) , Lymphocytes (%) (Auto) , Monocytes (%) (Auto) , Eosinophils (%) (Auto) , Basophils (%) (Auto) , Differential Total Cells Counted 100, Neutrophils % ( Manual) 91H, Lymphocytes % (Manual) 3L, Monocytes % (Manual) 4, Eosinophils % ( Manual) 0, Basophils % (Manual) 0, Band Neutrophils 2, Platelet Estimate DecreasedL, Platelet Morphology Normal, Hypochromasia 2+, Anisocytosis 2+, Macrocytosis 1+, Spherocytes 1+, Sodium Level 142, Potassium Level 5.3H, Chloride Level 112H, Carbon Dioxide Level 24, Anion Gap 6, Blood Urea Nitrogen 29H, Creatinine 1.0, Estimat Glomerular Filtration Rate , Glucose Level 159H, Uric Acid 6.7, Calcium Level 7.8L, Phosphorus Level 2.9, Magnesium Level 1.6L, Total Bilirubin 2.5H, Direct Bilirubin 1.7H, Aspartate Amino Transf (AST/SGOT) 89H, Alanine Aminotransferase (ALT/SGPT) 56, Alkaline Phosphatase 187H, C- Reactive Protein, Quantitative 24.0H, Pro-B-Type Natriuretic Peptide 93708P, Total Protein 5.5L, Albumin 1.6L, Globulin 3.9, Albumin/Globulin Ratio 0.4L Height (Feet): 5 Height (Inches): 6.00 Weight (Pounds): 157 Objective General Appearance: WD/WN, confused. more responsive, orally intubated Neck: supple Cardiovascular: irregularly irregular Respiratory/Chest: chest wall non-tender, lungs clear, normal breath sounds, no respiratory distress Abdomen: normal bowel sounds, non tender, soft, no organomegaly Edema: no edema noted Arm (L), no edema noted Arm (R), no edema noted Leg (L), no edema noted Leg (R), no edema noted Pedal (L), no edema noted Pedal (R), no edema noted Generalized Neurologic: disoriented Mitchel Reis MD Mar 03, 2019 11:13
--- NOTE | 2019-03-03 12:00 | NUR ---
NURSE NOTES: Patient awake and restless at this time. Patient nods when asked questions. Patient able to follow movement, react to name, make eye contact, and follow simple commands. Patient remains orally intubated. Ventilator setting AC 16, tidal volume 500, FiO2 35%, and PEEP 5. Patient tolerating with no sign of acute distress. Patient showing atrial fib with bundle branch block with rate of 84 beats per minute on the youth nutritional monitor. Gastrostomy tube remains patent, asymptomatic, and running vital AF at 50mL/hr with no residual noted. Open skin noted around insertion site of gastrostomy tube. Triad cream applied. Rectal tube patent and draining. Gross patent and draining light pauly urine at this time. Patient continues to have generalized edema. Bilateral upper extremities pitting +4 and weeping. Bilateral lower leg pitting +2 and feet non-pitting. Left upper arm PICC line that is patent, asymptomatic, and running levophed at 8mcg/min at this time with blood pressure of 101/64. Will continue to monitor and titrate levophed per protocol. Patient has potassium of 5.[address] Louis ordered 30gm Kayexalate. medication given. Serum magnesium of 1.[address] Louis ordered 2g Magnesium sulfate. Medication given. Bed in low position with bed alarm on and call light in reach at this time. Patient repositioned and oral care performed at this time. Will continue to monitor.
--- NOTE | 2019-03-03 14:43 | Nephrology Progress Note ---
Assessment/Plan Problem List: (1) Acute respiratory failure (2) Septic shock (3) Renal failure (4) Atrial fibrillation with rapid ventricular response (5) Cardiomyopathy Assessment Renal failure - ? Acute on Chronic, Partly dehydration Septic Shock UTI AT Fib with FVR h/o DM, proteinuria , HypoAlbuminemia Plan Kayexelaate as needed dig IV one dose given previously Midodrine K and Mag supplement as needed pulm support per consultants previously: stop NS intubated On 2 pressors BP remains low Poor prognosis - remains full code for now slow Hydrate 2D echo EjFx 40% antibiotics monitor renal parameters avoid nephrotoxics per orders Subjective ROS Limited/Unobtainable: Yes Objective Objective Last 24 Hour Vital Signs Date Time Temp Pulse Resp B/P (MAP) Pulse Ox O2 Delivery O2 Flow Rate FiO2 03/03/19 14:15 95 25 110/48 (68) 99 03/03/19 14:00 92 23 107/60 (76) 100 03/03/19 14:00 115/68 03/03/19 13:45 93 22 115/68 (84) 100 03/03/19 13:30 92 24 106/62 (77) 100 03/03/19 13:29 91 21 35 03/03/19 13:15 94 23 105/74 (84) 100 03/03/19 13:00 92 21 100/63 (75) 99 03/03/19 13:00 105/74 03/03/19 12:45 91 20 116/62 (80) 99 03/03/19 12:30 90 23 116/58 (77) 99 03/03/19 12:15 91 20 101/64 (76) 99 03/03/19 12:00 86 03/03/19 12:00 35 03/03/19 12:00 101/64 03/03/19 12:00 Mechanical Ventilator 03/03/19 12:00 98.7 90 22 100/57 (71) 99 03/03/19 11:45 90 16 99/71 (80) 99 03/03/19 11:30 85 14 107/56 (73) 99 03/03/19 11:15 83 14 95/57 (70) 98 03/03/19 11:00 95/57 03/03/19 11:00 85 17 102/61 (75) 100 03/03/19 10:58 85 16 35 03/03/19 10:45 84 16 94/57 (69) 99 03/03/19 10:30 86 16 89/49 (62) 98 03/03/19 10:30 86/53 03/03/19 10:15 88 17 98/81 (87) 98 03/03/19 10:00 98/81 03/03/19 10:00 89 21 97/75 (82) 97 03/03/19 09:45 87 18 105/56 (72) 98 03/03/19 09:34 99/55 03/03/19 09:30 105/56 03/03/19 09:30 87 18 99/55 (70) 98 03/03/19 09:15 87 19 98/57 (71) 98 03/03/19 09:00 98/57 03/03/19 09:00 87 17 95/58 (70) 100 03/03/19 08:55 89 16 35 03/03/19 08:45 89 22 99/62 (74) 99 03/03/19 08:30 87 15 100/54 (69) 98 03/03/19 08:28 90 108/55 03/03/19 08:15 85 10 108/55 (72) 99 03/03/19 08:00 89 03/03/19 08:00 82/52 03/03/19 08:00 35 03/03/19 08:00 Mechanical Ventilator 03/03/19 08:00 99.1 83 12 86/54 (65) 99 03/03/19 07:45 90 23 106/74 (85) 99 03/03/19 07:30 88 19 88/31 (50) 100 03/03/19 07:29 88 27 35 03/03/19 07:15 87 19 96/60 (72) 98 03/03/19 07:00 88 16 95/49 (64) 98 03/03/19 07:00 95/49 03/03/19 06:55 98.4 03/03/19 06:45 87 16 87/53 (64) 97 03/03/19 06:30 90 14 99/85 (90) 96 03/03/19 06:00 86 22 97/58 (71) 03/03/19 06:00 97/58 03/03/19 05:45 89 22 99/54 (69) 98 03/03/19 05:30 87 18 106/58 (74) 03/03/19 05:03 87 16 35 03/03/19 05:00 87 20 100/52 (68) 100 03/03/19 05:00 94/54 03/03/19 04:30 91 21 103/83 (90) 100 03/03/19 04:15 93 20 97/64 (75) 99 03/03/19 04:00 Mechanical Ventilator 03/03/19 04:00 88 03/03/19 04:00 94/54 03/03/19 04:00 98.4 87 17 94/54 (67) 99 03/03/19 04:00 35 03/03/19 03:45 85 23 93/48 (63) 99 03/03/19 03:30 84 16 93/54 (67) 99 03/03/19 03:15 86 22 92/55 (67) 99 03/03/19 03:12 88 23 35 03/03/19 03:00 92/55 03/03/19 03:00 88 21 97/75 (82) 99 03/03/19 02:45 88 21 92/57 (69) 99 03/03/19 02:30 88 21 92/57 (69) 99 03/03/19 02:00 84 16 84/48 (60) 98 03/03/19 02:00 84/48 03/03/19 01:45 87 16 83/50 (61) 98 03/03/19 01:30 91 19 92/51 (65) 98 03/03/19 01:15 84 20 91/46 (61) 99 03/03/19 01:00 88 19 87/55 (66) 99 03/03/19 01:00 87/55 03/03/19 00:59 90 18 35 03/03/19 00:30 99 18 101/60 (74) 99 03/03/19 00:23 105 99/59 03/03/19 00:15 101 19 99/59 (72) 100 03/03/19 00:00 98.6 102 19 111/62 (78) 100 03/03/19 00:00 111/62 03/03/19 00:00 Mechanical Ventilator 03/03/19 00:00 102 03/03/19 00:00 35 03/02/19 23:45 100 20 98/63 (75) 99 03/02/19 23:30 107 25 137/75 (95) 100 03/02/19 23:19 102 22 121/60 (80) 99 03/02/19 23:17 101 19 35 03/02/19 23:15 101 25 77/61 (66) 99 03/02/19 23:00 110/61 03/02/19 23:00 99 25 110/61 (77) 99 03/02/19 22:45 98 23 94/56 (69) 99 03/02/19 22:30 97 18 101/64 (76) 100 03/02/19 22:15 99 16 96/52 (67) 100 03/02/19 22:00 98 23 79/56 (64) 99 03/02/19 22:00 101/64 03/02/19 21:45 105 16 148/94 (112) 99 03/02/19 21:30 102 16 102/59 (73) 98 03/02/19 21:15 103 16 102/56 (71) 99 03/02/19 21:00 107/67 03/02/19 21:00 98.5 103 18 107/67 (80) 99 03/02/19 20:57 102 18 35 03/02/19 20:45 103 20 108/61 (77) 100 03/02/19 20:30 105 23 102/60 (74) 100 03/02/19 20:15 106 25 101/55 (70) 100 03/02/19 20:00 Mechanical Ventilator 03/02/19 20:00 102/68 03/02/19 20:00 105 03/02/19 20:00 35 03/02/19 20:00 98.6 108 23 102/68 (79) 99 03/02/19 19:45 106 18 116/65 (82) 100 03/02/19 19:30 98.5 106 17 101/51 (68) 03/02/19 19:00 98.7 105 19 116/63 (80) 99 03/02/19 18:58 104 16 35 03/02/19 18:53 101/60 03/02/19 18:45 99.0 110 30 101/60 (74) 03/02/19 18:30 111 32 101/56 (71) 03/02/19 18:00 119/57 03/02/19 18:00 114 22 119/57 (77) 03/02/19 17:30 107 17 93/48 (63) 03/02/19 17:00 105 16 97/58 (71) 98 03/02/19 17:00 97/58 03/02/19 16:48 116 26 35 03/02/19 16:00 106 17 131/65 (87) 98 03/02/19 16:00 98.4 106 17 131/65 (87) 98 03/02/19 16:00 105 03/02/19 16:00 35 03/02/19 16:00 131/65 03/02/19 16:00 Mechanical Ventilator 03/02/19 15:20 106 17 35 03/02/19 15:00 99/52 03/02/19 15:00 111 23 99/52 (68) 100 03/02/19 14:45 108 20 93/52 (66) 99 Intake and Output 03/02/19 03/03/19 19:00 07:00 Intake Total 964.6875 ml 992.49 ml Output Total 400 ml 410 ml Balance 564.6875 ml 582.49 ml Free Water 20 ml 60 ml IV Total 344.6875 ml 82.49 ml Tube Feeding 600 ml 600 ml Blood Product 250 ml Output Urine Total 350 ml 310 ml Stool Total 50 ml 100 ml Laboratory Tests 03/03/19 05:05: White Blood Count 12.0H, Red Blood Count 2.79L, Hemoglobin 9.0L, Hematocrit 28.1L, Mean Corpuscular Volume 101H, Mean Corpuscular Hemoglobin 32.3H, Mean Corpuscular Hemoglobin Concent 32.0, Red Cell Distribution Width 19.0H, Platelet Count 56L, Mean Platelet Volume 7.4, Neutrophils (%) (Auto) , Lymphocytes (%) (Auto) , Monocytes (%) (Auto) , Eosinophils (%) (Auto) , Basophils (%) (Auto) , Differential Total Cells Counted 100, Neutrophils % ( Manual) 91H, Lymphocytes % (Manual) 3L, Monocytes % (Manual) 4, Eosinophils % ( Manual) 0, Basophils % (Manual) 0, Band Neutrophils 2, Platelet Estimate DecreasedL, Platelet Morphology Normal, Hypochromasia 2+, Anisocytosis 2+, Macrocytosis 1+, Spherocytes 1+, Sodium Level 142, Potassium Level 5.3H, Chloride Level 112H, Carbon Dioxide Level 24, Anion Gap 6, Blood Urea Nitrogen 29H, Creatinine 1.0, Estimat Glomerular Filtration Rate , Glucose Level 159H, Uric Acid 6.7, Calcium Level 7.8L, Phosphorus Level 2.9, Magnesium Level 1.6L, Total Bilirubin 2.5H, Direct Bilirubin 1.7H, Aspartate Amino Transf (AST/SGOT) 89H, Alanine Aminotransferase (ALT/SGPT) 56, Alkaline Phosphatase 187H, C- Reactive Protein, Quantitative 24.0H, Pro-B-Type Natriuretic Peptide 87354Q, Total Protein 5.5L, Albumin 1.6L, Globulin 3.9, Albumin/Globulin Ratio 0.4L Height (Feet): 5 Height (Inches): 6.00 Weight (Pounds): 157 General Appearance: no apparent distress EENT: other - vented Cardiovascular: normal rate Respiratory/Chest: decreased breath sounds Abdomen: distended Objective no change Jt Louis MD Mar 03, 2019 14:43
--- NOTE | 2019-03-03 15:17 | NUR ---
CASE MANAGEMENT: REVIEW SI: SEPTIC SHOCK. RENAL FAILURE . A- FIB w/RVR T 98.7 HR 90 RR 22 BP 100/57 SAT 99% MECH VENT FIO2 35 WBC 12.0 H/H 9.0/28.1 K 5.3 BNP 24398 IS: KAYEXALATE GT X1 LEVOPHED GTT PROTONIX IV Q12HR COREG GT Q12HR MIDODRINE GT TID LEVAQUIN GT QD GT FEEDING VITAL 50ML/HR HATFIELD CATH RECTAL TUBE ICU STATUS DCP: PATIENT IS FROM [facility]
--- NOTE | 2019-03-03 16:00 | NUR ---
NURSE NOTES: Patient awake and restless at this time. Patient nods when asked questions. Patient able to follow movement, react to name, make eye contact, and follow simple commands. Patient remains orally intubated. Ventilator setting AC 16, tidal volume 500, FiO2 35%, and PEEP 5. Patient tolerating with no sign of acute distress. Patient showing atrial fib with bundle branch block with rate of 84 beats per minute on the equipment monitor phototypesetting. Gastrostomy tube remains patent, asymptomatic, and running vital AF at 50mL/hr with no residual noted. Open skin noted around insertion site of gastrostomy tube. Triad cream applied. Rectal tube patent and draining. Gross patent and draining light pauly urine at this time. Patient continues to have generalized edema. Bilateral upper extremities pitting +4 and weeping. Bilateral lower leg pitting +2 and feet non-pitting. Left upper arm PICC line that is patent, asymptomatic, and running levophed at 8mcg/min at this time with blood pressure of 101/69. Will continue to monitor and titrate levophed per protocol. Bed in low position with bed alarm on and call light in reach at this time. Patient repositioned and oral care performed at this time. Will continue to monitor.
[2019-03-03] MEDS ORDERED: Sterile Water Irrig 1000ml IRRIG ONE (16:01)
[2019-03-03] MEDS ORDERED: Tubing IV Blood Pump IV ONE (16:01)
--- NOTE | 2019-03-03 18:00 | NUR ---
NURSE NOTES: Patient blood pressure 107/57. Patient on levophed at 8mcg/min. Patient showing no sign of acute distress. Will continue to monitor and titrate levophed per protocol.
--- NOTE | 2019-03-03 19:15 | NUR ---
NURSE NOTES: Endorsement received from Grecia Prieto. Patient awake, alert x2. Opens eyes to spontaneously, localizes pain. Nods/ shakes head when asked with yes/no question. Left upper arm PICC. On levophed 8mcg/min. With bilateral soft wrists restraints for attempting to pull out tubes. Bilateral hands edematous, kept elevated. GT patent and intact. On Vital AF 50ml/hr. No residual. On P200 mattress. SCDs in place. Head of bed elevated. Bed locked and in low position. Bed alarm on.
--- NOTE | 2019-03-03 19:24 | NUR ---
HAND-OFF: Report given to ANDREINA Delatorre. Patient blood pressure 109/80 with 8mcg/min levophed running. Endorsed to follow up.
--- NOTE | 2019-03-03 19:27 | Surgery Progress Note ---
Surgery Progress Note Subjective Additional Comments awake, responsive following simple commands labs noted on pressors still Objective Last 24 Hour Vital Signs Date Time Temp Pulse Resp B/P (MAP) Pulse Ox O2 Delivery O2 Flow Rate FiO2 03/03/19 19:10 93 21 35 03/03/19 19:00 109/80 03/03/19 19:00 99 24 108/65 (79) 98 03/03/19 18:30 98 21 110/57 (74) 99 03/03/19 18:00 107/57 03/03/19 18:00 99 17 102/58 (73) 98 03/03/19 17:30 99 27 123/85 (98) 03/03/19 17:11 89 16 35 03/03/19 17:00 99 27 123/85 (98) 03/03/19 17:00 120/65 03/03/19 16:30 100 22 101/69 (80) 98 03/03/19 16:00 90 03/03/19 16:00 35 03/03/19 16:00 105/61 03/03/19 16:00 Mechanical Ventilator 03/03/19 16:00 98.8 94 22 111/70 (84) 99 03/03/19 15:30 97 15 115/63 (80) 99 03/03/19 15:15 96 19 35 03/03/19 15:00 107/64 03/03/19 15:00 96 21 101/53 (69) 99 03/03/19 14:30 93 22 102/64 (77) 99 03/03/19 14:15 95 25 110/48 (68) 99 03/03/19 14:00 92 23 107/60 (76) 100 03/03/19 14:00 115/68 03/03/19 13:45 93 22 115/68 (84) 100 03/03/19 13:30 92 24 106/62 (77) 100 03/03/19 13:29 91 21 35 03/03/19 13:15 94 23 105/74 (84) 100 03/03/19 13:00 92 21 100/63 (75) 99 03/03/19 13:00 105/74 03/03/19 12:45 91 20 116/62 (80) 99 03/03/19 12:30 90 23 116/58 (77) 99 03/03/19 12:15 91 20 101/64 (76) 99 03/03/19 12:00 86 03/03/19 12:00 35 03/03/19 12:00 101/64 03/03/19 12:00 Mechanical Ventilator 03/03/19 12:00 98.7 90 22 100/57 (71) 99 03/03/19 11:45 90 16 99/71 (80) 99 03/03/19 11:30 85 14 107/56 (73) 99 03/03/19 11:15 83 14 95/57 (70) 98 03/03/19 11:00 95/57 03/03/19 11:00 85 17 102/61 (75) 100 03/03/19 10:58 85 16 35 03/03/19 10:45 84 16 94/57 (69) 99 03/03/19 10:30 86 16 89/49 (62) 98 03/03/19 10:30 86/53 03/03/19 10:15 88 17 98/81 (87) 98 03/03/19 10:00 98/81 03/03/19 10:00 89 21 97/75 (82) 97 03/03/19 09:45 87 18 105/56 (72) 98 03/03/19 09:34 99/55 03/03/19 09:30 105/56 03/03/19 09:30 87 18 99/55 (70) 98 03/03/19 09:15 87 19 98/57 (71) 98 03/03/19 09:00 98/57 03/03/19 09:00 87 17 95/58 (70) 100 03/03/19 08:55 89 16 35 03/03/19 08:45 89 22 99/62 (74) 99 03/03/19 08:30 87 15 100/54 (69) 98 03/03/19 08:28 90 108/55 03/03/19 08:15 85 10 108/55 (72) 99 03/03/19 08:00 89 03/03/19 08:00 82/52 03/03/19 08:00 35 03/03/19 08:00 Mechanical Ventilator 03/03/19 08:00 99.1 83 12 86/54 (65) 99 03/03/19 07:45 90 23 106/74 (85) 99 03/03/19 07:30 88 19 88/31 (50) 100 03/03/19 07:29 88 27 35 03/03/19 07:15 87 19 96/60 (72) 98 03/03/19 07:00 88 16 95/49 (64) 98 03/03/19 07:00 95/49 03/03/19 06:55 98.4 03/03/19 06:45 87 16 87/53 (64) 97 03/03/19 06:30 90 14 99/85 (90) 96 03/03/19 06:00 86 22 97/58 (71) 03/03/19 06:00 97/58 03/03/19 05:45 89 22 99/54 (69) 98 03/03/19 05:30 87 18 106/58 (74) 03/03/19 05:03 87 16 35 03/03/19 05:00 87 20 100/52 (68) 100 03/03/19 05:00 94/54 03/03/19 04:30 91 21 103/83 (90) 100 03/03/19 04:15 93 20 97/64 (75) 99 03/03/19 04:00 Mechanical Ventilator 03/03/19 04:00 88 03/03/19 04:00 94/54 03/03/19 04:00 98.4 87 17 94/54 (67) 99 03/03/19 04:00 35 03/03/19 03:45 85 23 93/48 (63) 99 03/03/19 03:30 84 16 93/54 (67) 99 03/03/19 03:15 86 22 92/55 (67) 99 03/03/19 03:12 88 23 35 03/03/19 03:00 92/55 03/03/19 03:00 88 21 97/75 (82) 99 03/03/19 02:45 88 21 92/57 (69) 99 03/03/19 02:30 88 21 92/57 (69) 99 03/03/19 02:00 84 16 84/48 (60) 98 03/03/19 02:00 84/48 03/03/19 01:45 87 16 83/50 (61) 98 03/03/19 01:30 91 19 92/51 (65) 98 03/03/19 01:15 84 20 91/46 (61) 99 03/03/19 01:00 88 19 87/55 (66) 99 03/03/19 01:00 87/55 03/03/19 00:59 90 18 35 03/03/19 00:30 99 18 101/60 (74) 99 03/03/19 00:23 105 99/59 03/03/19 00:15 101 19 99/59 (72) 100 03/03/19 00:00 98.6 102 19 111/62 (78) 100 03/03/19 00:00 111/62 03/03/19 00:00 Mechanical Ventilator 03/03/19 00:00 102 03/03/19 00:00 35 03/02/19 23:45 100 20 98/63 (75) 99 03/02/19 23:30 107 25 137/75 (95) 100 03/02/19 23:19 102 22 121/60 (80) 99 03/02/19 23:17 101 19 35 03/02/19 23:15 101 25 77/61 (66) 99 03/02/19 23:00 110/61 03/02/19 23:00 99 25 110/61 (77) 99 03/02/19 22:45 98 23 94/56 (69) 99 03/02/19 22:30 97 18 101/64 (76) 100 03/02/19 22:15 99 16 96/52 (67) 100 03/02/19 22:00 98 23 79/56 (64) 99 03/02/19 22:00 101/64 03/02/19 21:45 105 16 148/94 (112) 99 03/02/19 21:30 102 16 102/59 (73) 98 03/02/19 21:15 103 16 102/56 (71) 99 03/02/19 21:00 107/67 03/02/19 21:00 98.5 103 18 107/67 (80) 99 03/02/19 20:57 102 18 35 03/02/19 20:45 103 20 108/61 (77) 100 03/02/19 20:30 105 23 102/60 (74) 100 03/02/19 20:15 106 25 101/55 (70) 100 03/02/19 20:00 Mechanical Ventilator 03/02/19 20:00 102/68 03/02/19 20:00 105 03/02/19 20:00 35 03/02/19 20:00 98.6 108 23 102/68 (79) 99 03/02/19 19:45 106 18 116/65 (82) 100 03/02/19 19:30 98.5 106 17 101/51 (68) I&O Intake and Output 03/02/19 03/03/19 19:00 07:00 Intake Total 964.6875 ml 992.49 ml Output Total 400 ml 410 ml Balance 564.6875 ml 582.49 ml Free Water 20 ml 60 ml IV Total 344.6875 ml 82.49 ml Tube Feeding 600 ml 600 ml Blood Product 250 ml Output Urine Total 350 ml 310 ml Stool Total 50 ml 100 ml Dressing: other Wound: other Drains: other Cardiovascular: RSR Respiratory: decreased breath sounds Abdomen: soft, present bowel sounds Extremities: no cyanosis, other Laboratory Tests Test 03/03/19 05:05 White Blood Count 12.0 K/UL (4.8-10.8) H Red Blood Count 2.79 M/UL (4.20-5.40) L Hemoglobin 9.0 G/DL (12.0-16.0) L Hematocrit 28.1 % (37.0-47.0) L Mean Corpuscular Volume 101 FL (80-99) H Mean Corpuscular Hemoglobin 32.3 PG (27.0-31.0) H Mean Corpuscular Hemoglobin Concent 32.0 G/DL (32.0-36.0) Red Cell Distribution Width 19.0 % (11.6-14.8) H Platelet Count 56 K/UL (150-450) L Mean Platelet Volume 7.4 FL (6.5-10.1) Neutrophils (%) (Auto) % (45.0-75.0) Lymphocytes (%) (Auto) % (20.0-45.0) Monocytes (%) (Auto) % (1.0-10.0) Eosinophils (%) (Auto) % (0.0-3.0) Basophils (%) (Auto) % (0.0-2.0) Differential Total Cells Counted 100 Neutrophils % (Manual) 91 % (45-75) H Lymphocytes % (Manual) 3 % (20-45) L Monocytes % (Manual) 4 % (1-10) Eosinophils % (Manual) 0 % (0-3) Basophils % (Manual) 0 % (0-2) Band Neutrophils 2 % (0-8) Platelet Estimate Decreased L Platelet Morphology Normal Hypochromasia 2+ Anisocytosis 2+ Macrocytosis 1+ Spherocytes 1+ Sodium Level 142 MMOL/L (136-145) Potassium Level 5.3 MMOL/L (3.5-5.1) H Chloride Level 112 MMOL/L (98-107) H Carbon Dioxide Level 24 MMOL/L (21-32) Anion Gap 6 mmol/L (5-15) Blood Urea Nitrogen 29 mg/dL (7-18) H Creatinine 1.0 MG/DL (0.55-1.30) Estimat Glomerular Filtration Rate mL/min (>60) Glucose Level 159 MG/DL (74-106) H Uric Acid 6.7 MG/DL (2.6-7.2) Calcium Level 7.8 MG/DL (8.5-10.1) L Phosphorus Level 2.9 MG/DL (2.5-4.9) Magnesium Level 1.6 MG/DL (1.8-2.4) L Total Bilirubin 2.5 MG/DL (0.2-1.0) H Direct Bilirubin 1.7 MG/DL (0.0-0.3) H Aspartate Amino Transf (AST/SGOT) 89 U/L (15-37) H Alanine Aminotransferase (ALT/SGPT) 56 U/L (12-78) Alkaline Phosphatase 187 U/L (46-116) H C-Reactive Protein, Quantitative 24.0 mg/dL (0.00-0.90) H Pro-B-Type Natriuretic Peptide 06455 pg/mL (0-125) H Total Protein 5.5 G/DL (6.4-8.2) L Albumin 1.6 G/DL (3.4-5.0) L Globulin 3.9 g/dL Albumin/Globulin Ratio 0.4 (1.0-2.7) L Plan Problems: (1) Septic shock Assessment & Plan: 78-year-old female in septic shock in the intensive care unit on pressors. Leukocytosis, anemia, abnormal labs. Tachycardic. On respiratory support. On examination patient identified to have slowed capillary refill in the distal extremities. Patient furthermore identified to have a weeping wound in the right great toe. Patient is currently very ill and septic and requiring pressors. Unfortunately given her medical condition comorbidities and history there is potential for distal vasoconstriction and potentially even necrosis of the distal aspects but further life-saving measures pressors currently required and necessary and indicated. wound re-evaluated. necrotic epidermal tissue sloth off but underlying tissues with backbleeding. motor noted spont in foot and toes We will continue to monitor extremities and evaluate them. Will wean off pressors as possible. Lactic acidosis improving. Continue IV antibiotics Wean pressors prognosis guarded labs slowly improving now still ill and guarded will discuss trach as she is alert/awake but weaning from vent slow Appreciate ICU care and management We will follow with recommendations (2) Abdominal pain Assessment & Plan: Chronic liver disease/cirrhosis with signs of portal hypertension including moderate ascites and hepatofugal flow in the portal vein. Gallbladder wall edema nonspecific Bilateral pleural effusions. Medical renal disease Findings: There is extensive artifact from the patient's arms limiting evaluation. Oral contrast was given. Gastrostomy tube is noted in good position. There are small bilateral pleural effusions present with adjacent ill-defined parenchymal density either atelectasis or pneumonia. Correlate clinically. Small pericardial effusion is present and there is generalized cardiomegaly present. Hiatal hernia noted. Aorta and coronary artery calcification present. Mild ascites is demonstrated. No compelling evidence for bowel obstruction. There is extensive diverticulosis involving the colon without obvious diverticulitis. Generalized anasarca noted. The appendix is not seen. The kidneys show no obvious hydronephrosis. The right kidney appears atrophic. There is a suggestion of cysts within the right kidney but this is grossly limited in terms of visualization. The gallbladder is demonstrated. The rectum appears low in location suggestive of prolapse and with a moderate degree of fecal retention. IMPRESSION: Limited evaluation due to artifact. Mild to moderate ascites Trace bilateral pleural effusions. Basilar atelectasis and/or infiltrate. Trace pericardial effusion Generalized cardiomegaly. Atherosclerotic vascular disease Extensive diverticulosis of the colon. No definite diverticulitis. Anasarca Gross catheter Query rectal prolapse (3) Severe sepsis Tristan Heller Mar 03, 2019 19:27
[2019-03-03] MEDS: Dyna-Hex 2% Top Sol 2oz TOPIC SCH (19:33)
--- NOTE | 2019-03-03 20:30 | NUR ---
NURSE NOTES: Patient seen and examined by Dr. Mason.
[2019-03-03] MEDS ORDERED: Digoxin 0.125mg tab ONE (21:54)
--- NOTE | 2019-03-03 22:00 | NUR ---
NURSE NOTES: Patient awake. No signs of pain or discomfort.
--- NOTE | 2019-03-03 22:00 | Progress Note ---
DATE: 03/03/2019 CARDIOLOGY PROGRESS NOTE SUBJECTIVE: Condition has worsened. Blood pressure parameters have diminished. Pressor support was resumed. Weaning efforts have failed. OBJECTIVE: VITAL SIGNS: Blood pressure 86/54, pulse 83, respirations 12, temperature 99.1. NECK: Thin trach secretions. LUNGS: Bilateral breath sounds. Few rhonchi. CARDIAC: Irregularly irregular rhythm. ABDOMEN: Soft. EXTREMITIES: 2+ dependent edema. LABORATORY AND DIAGNOSTIC DATA: Chest x-ray reveals congestive heart failure, pleural effusion, bilateral left greater than right consolidation. Labs, white count 12, hemoglobin 9. Sodium 142, potassium 5.3, bicarb 24, BUN 29, creatinine 1, magnesium 1.6. Albumin 1.6. Pro-natriuretic peptide 23,000. IMPRESSION: 1. Respiratory failure. 2. Sepsis with shock. 3. Adrenal insufficiency. 4. Hypomagnesemia. 5. Acute diastolic congestive heart failure. 6. Healthcare-acquired pneumonia. 7. Remains critical and guarded. 8. Paroxysmal atrial fibrillation with rapid ventricular response. PLAN: 1. ICU care. 2. Ventilator support. 3. Pressors with taper as able. 4. IV magnesium. 5. Replace potassium. 6. Continue midodrine. 7. Digitalize for rate control. Jimmie Mason M.D. DR: GISEL JOB#: [id number] CC: CHRISTINE
[2019-03-04] VITALS (46 sets, daily range): BP systolic 70–136; BP diastolic 32–92
--- NOTE | 2019-03-04 | NUR ---
NURSE NOTES: Patient asleep. Arousable per name. Afib on the monitor. On Levophed 8mcg/min. Tolerating feeding. Afebrile.
--- NOTE | 2019-03-04 03:00 | NUR ---
NURSE NOTES: Bed bath, oral care, change of linens done.
--- NOTE | 2019-03-04 05:00 | NUR ---
NURSE NOTES: Patient asleep. On levophed 8mcg/min. Tolerating feeding. Secretions suctioned.
[2019-03-04 05:34] LABS: HEMATOCRIT 28.5 % (37.0-47.0); HEMOGLOBIN 9.1 G/DL (12.0-16.0); MEAN CORPUSCULAR VOLUME 100 FL (80-99); PLATELET COUNT 72 K/UL (150-450); RED BLOOD COUNT 2.85 M/UL (4.20-5.40); RED CELL DISTRIBUTION WIDTH 18.9 % (11.6-14.8); WHITE BLOOD COUNT 12.2 K/UL (4.8-10.8)
[2019-03-04 05:58] LABS: PHOSPHORUS 2.9 MG/DL (2.5-4.9)
[2019-03-04 06:04] LABS: ALANINE AMINOTRANSFERASE 54 U/L (12-78); ALBUMIN 1.5 G/DL (3.4-5.0); ALBUMIN/GLOBULIN RATIO 0.4 (1.0-2.7); ALKALINE PHOSPHATASE 203 U/L (46-116); ANION GAP 7 mmol/L (5-15); ASPARTATE AMINO TRANSFERASE 80 U/L (15-37); BILIRUBIN,TOTAL 2.4 MG/DL (0.2-1.0); BLOOD UREA NITROGEN 33 mg/dL (7-18); CALCIUM 7.7 MG/DL (8.5-10.1); CARBON DIOXIDE 25 MMOL/L (21-32); CHLORIDE 113 MMOL/L (98-107); POTASSIUM 3.9 MMOL/L (3.5-5.1); SODIUM 145 MMOL/L (136-145)
[2019-03-04 06:05] LABS: BILIRUBIN,DIRECT 1.8 MG/DL (0.0-0.3)
--- NOTE | 2019-03-04 06:44 | NUR ---
RESPIRATORY NOTES: Received Patient on Vent settings ACVC RR 16, VT 500, Fio2 35% PEEP +5. Patient has a 7.0 ETT at 22 cm at the lip, secured with anchorfast. Suctioned a moderate amount of thick yellow secretions. Patient lying in bed agitated. Vent plugged into red outlet. Alarms are on and audible. Will continue to monitor patient throughout the day.
--- NOTE | 2019-03-04 06:47 | NUR ---
RESPIRATORY NOTES: Patient failed weaning trial immediately. VT decreased to <150mL, RSBI 147. Placed patient back onto ACVC settings.
--- NOTE | 2019-03-04 07:21 | NUR ---
NURSE NOTES: Received pt from ANDREINA Delatorre. Pt responds to voice and touch. Orally intubated ETT 7.0/22cm, Vent settings: AC16/TV 500/Fio2 35%/+5, Spo2 100%, RR 16. Thick fraser-pb secretions noted. Rhonchi heard bilateral b/s. Turned off GTF for weaning trial this AM. GT clamped, no residual noted. Abdomen distended. BUE +4 edema and BLE +2 edema, abdomen pitting edema +1 noted. KELVIN PICC running Levophed@8mcg/min. Gross catheter draining pauly urine to gravity. Rectal tube draining to gravity. Bed locked, alarmed and in lowest position. Will continue plan of care.
--- NOTE | 2019-03-04 07:27 | NUR ---
HAND-OFF: Report given to Grecia Huynh Informed her of the dig level and if Dr. Mason would want to decrease the dose as per pharmacist..
--- NOTE | 2019-03-04 08:00 | NUR ---
NURSE NOTES: Notified Dr. Reis patient's Dig level is 2.2, received orders to hold medication.
[2019-03-04] MEDS: Digoxin 0.125mg tab NG SCH (09:00)
--- NOTE | 2019-03-04 09:14 | General Progress Note ---
Assessment/Plan Status: stable, not improved, deteriorating Assessment/Plan: Assessment/Plan Status: stable, not improved, deteriorating Assessment/Plan: Assessment - GT dependent - Hepatitis C (+) - Abnormal LFT, ascites, thrombocytopenia - suspect chronic liver disease - Lactic acidosis - Resp failure - OBS / Delirium - Azotemia - Diarrhea - improved off of lactulose - poor PX Recommendations - supportive care - Abx per ID Subjective ROS Limited/Unobtainable: No Allergies: Coded Allergies: No Known Allergies (Unverified , 02/19/19) Objective Last 24 Hour Vital Signs Date Time Temp Pulse Resp B/P (MAP) Pulse Ox O2 Delivery O2 Flow Rate FiO2 03/04/19 09:07 100 16 35 03/04/19 09:00 100 03/04/19 06:45 94 25 35 03/04/19 06:00 108/56 03/04/19 06:00 97 18 108/56 (73) 82 03/04/19 05:30 90 15 96/58 (71) 98 03/04/19 05:14 94 19 35 03/04/19 05:00 106/51 03/04/19 05:00 91 16 106/51 (69) 03/04/19 04:30 93 16 124/55 (78) 03/04/19 04:00 35 03/04/19 04:00 98.6 92 14 96/65 (75) 03/04/19 04:00 Mechanical Ventilator 03/04/19 04:00 107/51 03/04/19 04:00 91 03/04/19 03:30 89 16 81/49 (60) 03/04/19 03:05 95 17 35 03/04/19 03:00 113/66 03/04/19 03:00 92 17 107/58 (74) 03/04/19 02:30 97 26 133/53 (79) 100 03/04/19 02:00 98 22 119/61 (80) 98 03/04/19 02:00 95/52 03/04/19 01:30 94 22 102/54 (70) 97 03/04/19 01:06 91 16 35 03/04/19 01:00 94 21 95/55 (68) 97 03/04/19 01:00 95/55 03/04/19 00:30 95 21 106/59 (75) 97 03/04/19 00:00 Mechanical Ventilator 03/04/19 00:00 35 03/04/19 00:00 98.7 92 19 96/58 (71) 98 03/04/19 00:00 91 03/03/19 23:30 93 19 97/54 (68) 98 03/03/19 23:05 88 19 35 03/03/19 23:00 100/54 03/03/19 23:00 93 17 110/57 (74) 99 03/03/19 22:30 91 19 94/63 (73) 99 03/03/19 22:07 93 03/03/19 22:00 90 16 97/58 (71) 99 03/03/19 22:00 90/62 03/03/19 21:30 92 16 87/54 (65) 99 03/03/19 21:11 87 21 35 03/03/19 21:00 88 19 93/52 (66) 98 03/03/19 21:00 95/57 03/03/19 20:30 98 20 92/59 (70) 99 03/03/19 20:04 101 118/64 03/03/19 20:00 Mechanical Ventilator 03/03/19 20:00 98.5 98 22 118/64 (82) 99 03/03/19 20:00 35 03/03/19 20:00 111/72 03/03/19 20:00 96 03/03/19 19:30 97 24 85/64 (71) 99 03/03/19 19:10 93 21 35 03/03/19 19:00 109/80 03/03/19 19:00 99 24 108/65 (79) 98 03/03/19 18:30 98 21 110/57 (74) 99 03/03/19 18:00 107/57 03/03/19 18:00 99 17 102/58 (73) 98 03/03/19 17:30 99 27 123/85 (98) 03/03/19 17:11 89 16 35 03/03/19 17:00 99 27 123/85 (98) 03/03/19 17:00 120/65 03/03/19 16:30 100 22 101/69 (80) 98 03/03/19 16:00 90 03/03/19 16:00 35 11/23/19 16:00 105/61 03/03/19 16:00 Mechanical Ventilator 03/03/19 16:00 98.8 94 22 111/70 (84) 99 03/03/19 15:30 97 15 115/63 (80) 99 03/03/19 15:15 96 19 35 03/03/19 15:00 107/64 03/03/19 15:00 96 21 101/53 (69) 99 03/03/19 14:30 93 22 102/64 (77) 99 03/03/19 14:15 95 25 110/48 (68) 99 03/03/19 14:00 92 23 107/60 (76) 100 03/03/19 14:00 115/68 03/03/19 13:45 93 22 115/68 (84) 100 03/03/19 13:30 92 24 106/62 (77) 100 03/03/19 13:29 91 21 35 03/03/19 13:15 94 23 105/74 (84) 100 03/03/19 13:00 92 21 100/63 (75) 99 03/03/19 13:00 105/74 03/03/19 12:45 91 20 116/62 (80) 99 03/03/19 12:30 90 23 116/58 (77) 99 03/03/19 12:15 91 20 101/64 (76) 99 03/03/19 12:00 86 03/03/19 12:00 35 03/03/19 12:00 101/64 03/03/19 12:00 Mechanical Ventilator 03/03/19 12:00 98.7 90 22 100/57 (71) 99 03/03/19 11:45 90 16 99/71 (80) 99 03/03/19 11:30 85 14 107/56 (73) 99 03/03/19 11:15 83 14 95/57 (70) 98 03/03/19 11:00 95/57 03/03/19 11:00 85 17 102/61 (75) 100 03/03/19 10:58 85 16 35 03/03/19 10:45 84 16 94/57 (69) 99 03/03/19 10:30 86 16 89/49 (62) 98 03/03/19 10:30 86/53 03/03/19 10:15 88 17 98/81 (87) 98 03/03/19 10:00 98/81 03/03/19 10:00 89 21 97/75 (82) 97 03/03/19 09:45 87 18 105/56 (72) 98 03/03/19 09:34 99/55 03/03/19 09:30 105/56 03/03/19 09:30 87 18 99/55 (70) 98 03/03/19 09:15 87 19 98/57 (71) 98 Intake and Output 03/03/19 03/04/19 18:59 06:59 Intake Total 995.625 ml 780 ml Output Total 480 ml 240 ml Balance 515.625 ml 540 ml Free Water 40 ml 30 ml IV Total 355.625 ml 150 ml Tube Feeding 600 ml 600 ml Output Urine Total 280 ml 240 ml Stool Total 200 ml Laboratory Tests 03/04/19 05:17: White Blood Count 12.2H, Red Blood Count 2.85L, Hemoglobin 9.1L, Hematocrit 28.5L, Mean Corpuscular Volume 100H, Mean Corpuscular Hemoglobin 32.0H, Mean Corpuscular Hemoglobin Concent 32.0, Red Cell Distribution Width 18.9H, Platelet Count 72L, Mean Platelet Volume 9.1, Neutrophils (%) (Auto) , Lymphocytes (%) (Auto) , Monocytes (%) (Auto) , Eosinophils (%) (Auto) , Basophils (%) (Auto) , Differential Total Cells Counted 100, Neutrophils % ( Manual) 82H, Lymphocytes % (Manual) 10L, Monocytes % (Manual) 6, Eosinophils % ( Manual) 1, Basophils % (Manual) 0, Band Neutrophils 1, Platelet Estimate DecreasedL, Platelet Morphology Normal, Hypochromasia 1+, Anisocytosis 2+, Macrocytosis 1+, Ovalocytes Occasional, Sodium Level 145, Potassium Level 3.9, Chloride Level 113H, Carbon Dioxide Level 25, Anion Gap 7, Blood Urea Nitrogen 33H, Creatinine 1.0, Estimat Glomerular Filtration Rate , Glucose Level 173H, Uric Acid 6.5, Calcium Level 7.7L, Phosphorus Level 2.9, Magnesium Level 1.8, Total Bilirubin 2.4H, Direct Bilirubin 1.8H, Aspartate Amino Transf (AST/SGOT) 80H, Alanine Aminotransferase (ALT/SGPT) 54, Alkaline Phosphatase 203H, Total Protein 5.4L, Albumin 1.5L, Globulin 3.9, Albumin/Globulin Ratio 0.4L, Digoxin Level 2.2H Height (Feet): 5 Height (Inches): 6.00 Weight (Pounds): 162 General Appearance: no apparent distress EENT: normal ENT inspection Neck: supple Respiratory/Chest: decreased breath sounds Abdomen: normal bowel sounds, non tender, soft Extremities: non-tender Ede Silvestre MD Mar 04, 2019 09:14
--- NOTE | 2019-03-04 09:30 | NUR ---
NURSE NOTES: Patient placed on CPAP/PS 8 for weaning. Patient unable to tolerate, TV <200ml. Dr. Anderson notified, received orders for breathing treatment and mucomyst.
[2019-03-04] MEDS: Pantoprazole Inj IVP SCH ×2 (09:32→20:36)
--- NOTE | 2019-03-04 10:13 | Critical Care Progress Note ---
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, chronic atrial fibrillation, hypertension, diastolic congestive heart failure, septic shock, hypothermia, hypotension, hypoxemia severe PCM, thrombocytopenia, anemia, leukocytosis, acute renal failure Vent support PLAN care noted and reviewed in detail ICU management reviewed vent management - still on full vent support keep negative as per cardiology meds reviewed monitor acid base support as able and discuss full code as outlined pressors as needed- monitor as tapering off IV antibiotics and cultures noted respiratory care SNF meds supportive care as outline suction and monitor imaging monitor for aspiration and change oxygen therapy as needed all care reviewed in detail ICU care reviewed close follow up of acid base for now remains critical at present needs trach unable to wean remains very ill at present medications/laboratory data/nursing notes/ICU care reviewed in detail note reviewed and edited care discussed with RN and RT ICU time spent 40 minutes Critical Care - Subjective Interval Events: still on pressors cannot wean needs trach no family ICU care reviewed ROS Limited/Unobtainable: Yes Condition: critical EKG Rhythm: Sinus Rhythm Residuals: minimal Tube Feeding Tolerated: yes I&O: Intake and Output 03/03/19 03/04/19 18:59 06:59 Intake Total 995.625 ml 780 ml Output Total 480 ml 240 ml Balance 515.625 ml 540 ml Free Water 40 ml 30 ml IV Total 355.625 ml 150 ml Tube Feeding 600 ml 600 ml Output Urine Total 280 ml 240 ml Stool Total 200 ml Critical Care - Objective ET-Tube: 7.0 ET Position: 22 Last 24 Hour Vital Signs Date Time Temp Pulse Resp B/P (MAP) Pulse Ox O2 Delivery O2 Flow Rate FiO2 03/04/19 09:15 97 17 109/70 (83) 100 03/04/19 09:07 100 16 35 03/04/19 09:00 100 03/04/19 09:00 95 15 105/60 (75) 99 03/04/19 08:45 96 21 100/60 (73) 03/04/19 08:30 96 21 107/59 (75) 03/04/19 08:15 93 9 107/57 (74) 03/04/19 08:00 Mechanical Ventilator 03/04/19 08:00 92 03/04/19 08:00 35 03/04/19 08:00 98.7 91 11 103/59 (74) 03/04/19 07:15 96 18 136/62 (86) 99 11/24/19 07:00 96 18 110/62 (78) 99 03/04/19 06:45 94 25 35 03/04/19 06:00 108/56 03/04/19 06:00 97 18 108/56 (73) 82 03/04/19 05:30 90 15 96/58 (71) 98 03/04/19 05:14 94 19 35 03/04/19 05:00 106/51 03/04/19 05:00 91 16 106/51 (69) 03/04/19 04:30 93 16 124/55 (78) 03/04/19 04:00 35 03/04/19 04:00 98.6 92 14 96/65 (75) 03/04/19 04:00 Mechanical Ventilator 03/04/19 04:00 107/51 03/04/19 04:00 91 03/04/19 03:30 89 16 81/49 (60) 03/04/19 03:05 95 17 35 03/04/19 03:00 113/66 03/04/19 03:00 92 17 107/58 (74) 03/04/19 02:30 97 26 133/53 (79) 100 03/04/19 02:00 98 22 119/61 (80) 98 03/04/19 02:00 95/52 03/04/19 01:30 94 22 102/54 (70) 97 03/04/19 01:06 91 16 35 03/04/19 01:00 94 21 95/55 (68) 97 03/04/19 01:00 95/55 03/04/19 00:30 95 21 106/59 (75) 97 03/04/19 00:00 Mechanical Ventilator 03/04/19 00:00 35 03/04/19 00:00 98.7 92 19 96/58 (71) 98 03/04/19 00:00 91 03/03/19 23:30 93 19 97/54 (68) 98 03/03/19 23:05 88 19 35 03/03/19 23:00 100/54 03/03/19 23:00 93 17 110/57 (74) 99 03/03/19 22:30 91 19 94/63 (73) 99 03/03/19 22:07 93 11/23/19 22:00 90 16 97/58 (71) 99 03/03/19 22:00 90/62 03/03/19 21:30 92 16 87/54 (65) 99 03/03/19 21:11 87 21 35 03/03/19 21:00 88 19 93/52 (66) 98 03/03/19 21:00 95/57 03/03/19 20:30 98 20 92/59 (70) 99 03/03/19 20:04 101 118/64 03/03/19 20:00 Mechanical Ventilator 03/03/19 20:00 98.5 98 22 118/64 (82) 99 03/03/19 20:00 35 03/03/19 20:00 111/72 03/03/19 20:00 96 03/03/19 19:30 97 24 85/64 (71) 99 03/03/19 19:10 93 21 35 03/03/19 19:00 109/80 03/03/19 19:00 99 24 108/65 (79) 98 03/03/19 18:30 98 21 110/57 (74) 99 03/03/19 18:00 107/57 03/03/19 18:00 99 17 102/58 (73) 98 03/03/19 17:30 99 27 123/85 (98) 03/03/19 17:11 89 16 35 03/03/19 17:00 99 27 123/85 (98) 03/03/19 17:00 120/65 03/03/19 16:30 100 22 101/69 (80) 98 03/03/19 16:00 90 03/03/19 16:00 35 03/03/19 16:00 105/61 03/03/19 16:00 Mechanical Ventilator 03/03/19 16:00 98.8 94 22 111/70 (84) 99 03/03/19 15:30 97 15 115/63 (80) 99 03/03/19 15:15 96 19 35 03/03/19 15:00 107/64 03/03/19 15:00 96 21 101/53 (69) 99 03/03/19 14:30 93 22 102/64 (77) 99 03/03/19 14:15 95 25 110/48 (68) 99 03/03/19 14:00 92 23 107/60 (76) 100 03/03/19 14:00 115/68 03/03/19 13:45 93 22 115/68 (84) 100 03/03/19 13:30 92 24 106/62 (77) 100 03/03/19 13:29 91 21 35 03/03/19 13:15 94 23 105/74 (84) 100 03/03/19 13:00 92 21 100/63 (75) 99 03/03/19 13:00 105/74 03/03/19 12:45 91 20 116/62 (80) 99 03/03/19 12:30 90 23 116/58 (77) 99 03/03/19 12:15 91 20 101/64 (76) 99 03/03/19 12:00 86 03/03/19 12:00 35 03/03/19 12:00 101/64 03/03/19 12:00 Mechanical Ventilator 03/03/19 12:00 98.7 90 22 100/57 (71) 99 03/03/19 11:45 90 16 99/71 (80) 99 03/03/19 11:30 85 14 107/56 (73) 99 03/03/19 11:15 83 14 95/57 (70) 98 03/03/19 11:00 95/57 03/03/19 11:00 85 17 102/61 (75) 100 03/03/19 10:58 85 16 35 03/03/19 10:45 84 16 94/57 (69) 99 03/03/19 10:30 86 16 89/49 (62) 98 03/03/19 10:30 86/53 03/03/19 10:15 88 17 98/81 (87) 98 Labs: Laboratory Tests Test 03/04/19 05:17 White Blood Count 12.2 K/UL (4.8-10.8) H Red Blood Count 2.85 M/UL (4.20-5.40) L Hemoglobin 9.1 G/DL (12.0-16.0) L Hematocrit 28.5 % (37.0-47.0) L Mean Corpuscular Volume 100 FL (80-99) H Mean Corpuscular Hemoglobin 32.0 PG (27.0-31.0) H Mean Corpuscular Hemoglobin Concent 32.0 G/DL (32.0-36.0) Red Cell Distribution Width 18.9 % (11.6-14.8) H Platelet Count 72 K/UL (150-450) L Mean Platelet Volume 9.1 FL (6.5-10.1) Neutrophils (%) (Auto) % (45.0-75.0) Lymphocytes (%) (Auto) % (20.0-45.0) Monocytes (%) (Auto) % (1.0-10.0) Eosinophils (%) (Auto) % (0.0-3.0) Basophils (%) (Auto) % (0.0-2.0) Differential Total Cells Counted 100 Neutrophils % (Manual) 82 % (45-75) H Lymphocytes % (Manual) 10 % (20-45) L Monocytes % (Manual) 6 % (1-10) Eosinophils % (Manual) 1 % (0-3) Basophils % (Manual) 0 % (0-2) Band Neutrophils 1 % (0-8) Platelet Estimate Decreased L Platelet Morphology Normal Hypochromasia 1+ Anisocytosis 2+ Macrocytosis 1+ Ovalocytes Occasional Sodium Level 145 MMOL/L (136-145) Potassium Level 3.9 MMOL/L (3.5-5.1) Chloride Level 113 MMOL/L (98-107) H Carbon Dioxide Level 25 MMOL/L (21-32) Anion Gap 7 mmol/L (5-15) Blood Urea Nitrogen 33 mg/dL (7-18) H Creatinine 1.0 MG/DL (0.55-1.30) Estimat Glomerular Filtration Rate mL/min (>60) Glucose Level 173 MG/DL (74-106) H Uric Acid 6.5 MG/DL (2.6-7.2) Calcium Level 7.7 MG/DL (8.5-10.1) L Phosphorus Level 2.9 MG/DL (2.5-4.9) Magnesium Level 1.8 MG/DL (1.8-2.4) Total Bilirubin 2.4 MG/DL (0.2-1.0) H Direct Bilirubin 1.8 MG/DL (0.0-0.3) H Aspartate Amino Transf (AST/SGOT) 80 U/L (15-37) H Alanine Aminotransferase (ALT/SGPT) 54 U/L (12-78) Alkaline Phosphatase 203 U/L (46-116) H Total Protein 5.4 G/DL (6.4-8.2) L Albumin 1.5 G/DL (3.4-5.0) L Globulin 3.9 g/dL Albumin/Globulin Ratio 0.4 (1.0-2.7) L Digoxin Level 2.2 NG/ML (0.9-2.0) H Objective: PHYSICAL EXAMINATION: GENERAL: The patient is a chronically ill-appearing female, on VENT and not weaning yet NECK: Supple. There is a central line in the right subclavian area. HEART: iRRR.without MRG LUNGS: reduced breath sounds with some rhonchi; no wheeze ABDOMEN: Soft, nontender, nondistended. no HSM EXTREMITIES: No clubbing, cyanosis, or edema. NEURO: response to pain skin noted Accucheck: 72 Jan Anderson MD Mar 04, 2019 10:13
--- NOTE | 2019-03-04 10:28 | General Progress Note ---
Assessment/Plan Problem List: (1) Septic shock ICD Codes: A41.9 - Sepsis, unspecified organism; R65.21 - Severe sepsis with septic shock SNOMED: 14700042 (2) UTI (urinary tract infection) ICD Codes: N39.0 - Urinary tract infection, site not specified SNOMED: 75072210 Qualifiers: Qualified Codes: N39.0 - Urinary tract infection, site not specified (3) Renal failure ICD Codes: N19 - Unspecified kidney failure SNOMED: 91523453 Qualifiers: Qualified Codes: N17.9 - Acute kidney failure, unspecified (4) Abdominal pain ICD Codes: R10.9 - Unspecified abdominal pain SNOMED: 41060288 Qualifiers: Qualified Codes: R10.32 - Left lower quadrant pain (5) Severe sepsis ICD Codes: A41.9 - Sepsis, unspecified organism; R65.20 - Severe sepsis without septic shock SNOMED: 53388760 (6) Dehydration ICD Codes: E86.0 - Dehydration SNOMED: 33759769 (7) Atrial fibrillation with rapid ventricular response ICD Codes: I48.91 - Unspecified atrial fibrillation SNOMED: 112008396513190 Status: stable, not improved, deteriorating Assessment/Plan: cont supportive care wean vent as able hope to avoid trach wean pressors midodrine try diuresis. monitor bp resp rx and suctioning as needed monitor labs scd iv abx per id tube feeds Subjective ROS Limited/Unobtainable: No Constitutional: Reports: malaise, weakness HEENT: Reports: no symptoms Cardiovascular: Reports: edema Respiratory: Reports: shortness of breath Gastrointestinal/Abdominal: Reports: difficulty swallowing Genitourinary: Reports: no symptoms Neurologic/Psychiatric: Reports: pre-existing deficit Endocrine: Reports: no symptoms Hematologic/Lymphatic: Reports: anemia Allergies: Coded Allergies: No Known Allergies (Unverified , 02/19/19) All Systems: reviewed and negative except above Subjective no events. back on pressors. no fevers. labs pending. failed wean yesterday +edema/anasarca. alert. Objective Last 24 Hour Vital Signs Date Time Temp Pulse Resp B/P (MAP) Pulse Ox O2 Delivery O2 Flow Rate FiO2 03/04/19 10:00 100 18 135/66 (89) 100 03/04/19 09:15 97 17 109/70 (83) 100 03/04/19 09:07 100 16 35 03/04/19 09:00 100 03/04/19 09:00 95 15 105/60 (75) 99 03/04/19 08:45 96 21 100/60 (73) 03/04/19 08:30 96 21 107/59 (75) 03/04/19 08:15 93 9 107/57 (74) 03/04/19 08:00 Mechanical Ventilator 03/04/19 08:00 92 03/04/19 08:00 35 03/04/19 08:00 98.7 91 11 103/59 (74) 03/04/19 07:15 96 18 136/62 (86) 99 03/04/19 07:00 96 18 110/62 (78) 99 03/04/19 06:45 94 25 35 03/04/19 06:00 108/56 03/04/19 06:00 97 18 108/56 (73) 82 03/04/19 05:30 90 15 96/58 (71) 98 03/04/19 05:14 94 19 35 03/04/19 05:00 106/51 03/04/19 05:00 91 16 106/51 (69) 03/04/19 04:30 93 16 124/55 (78) 03/04/19 04:00 35 03/04/19 04:00 98.6 92 14 96/65 (75) 03/04/19 04:00 Mechanical Ventilator 03/04/19 04:00 107/51 03/04/19 04:00 91 03/04/19 03:30 89 16 81/49 (60) 03/04/19 03:05 95 17 35 03/04/19 03:00 113/66 03/04/19 03:00 92 17 107/58 (74) 03/04/19 02:30 97 26 133/53 (79) 100 03/04/19 02:00 98 22 119/61 (80) 98 03/04/19 02:00 95/52 03/04/19 01:30 94 22 102/54 (70) 97 03/04/19 01:06 91 16 35 03/04/19 01:00 94 21 95/55 (68) 97 03/04/19 01:00 95/55 03/04/19 00:30 95 21 106/59 (75) 97 11/24/19 00:00 Mechanical Ventilator 03/04/19 00:00 35 03/04/19 00:00 98.7 92 19 96/58 (71) 98 03/04/19 00:00 91 03/03/19 23:30 93 19 97/54 (68) 98 03/03/19 23:05 88 19 35 03/03/19 23:00 100/54 03/03/19 23:00 93 17 110/57 (74) 99 03/03/19 22:30 91 19 94/63 (73) 99 03/03/19 22:07 93 03/03/19 22:00 90 16 97/58 (71) 99 03/03/19 22:00 90/62 03/03/19 21:30 92 16 87/54 (65) 99 03/03/19 21:11 87 21 35 03/03/19 21:00 88 19 93/52 (66) 98 03/03/19 21:00 95/57 03/03/19 20:30 98 20 92/59 (70) 99 03/03/19 20:04 101 118/64 03/03/19 20:00 Mechanical Ventilator 03/03/19 20:00 98.5 98 22 118/64 (82) 99 03/03/19 20:00 35 03/03/19 20:00 111/72 03/03/19 20:00 96 03/03/19 19:30 97 24 85/64 (71) 99 03/03/19 19:10 93 21 35 03/03/19 19:00 109/80 03/03/19 19:00 99 24 108/65 (79) 98 03/03/19 18:30 98 21 110/57 (74) 99 03/03/19 18:00 107/57 03/03/19 18:00 99 17 102/58 (73) 98 03/03/19 17:30 99 27 123/85 (98) 03/03/19 17:11 89 16 35 03/03/19 17:00 99 27 123/85 (98) 03/03/19 17:00 120/65 03/03/19 16:30 100 22 101/69 (80) 98 03/03/19 16:00 90 03/03/19 16:00 35 03/03/19 16:00 105/61 03/03/19 16:00 Mechanical Ventilator 03/03/19 16:00 98.8 94 22 111/70 (84) 99 03/03/19 15:30 97 15 115/63 (80) 99 03/03/19 15:15 96 19 35 03/03/19 15:00 107/64 03/03/19 15:00 96 21 101/53 (69) 99 03/03/19 14:30 93 22 102/64 (77) 99 03/03/19 14:15 95 25 110/48 (68) 99 03/03/19 14:00 92 23 107/60 (76) 100 03/03/19 14:00 115/68 03/03/19 13:45 93 22 115/68 (84) 100 03/03/19 13:30 92 24 106/62 (77) 100 03/03/19 13:29 91 21 35 03/03/19 13:15 94 23 105/74 (84) 100 03/03/19 13:00 92 21 100/63 (75) 99 03/03/19 13:00 105/74 03/03/19 12:45 91 20 116/62 (80) 99 03/03/19 12:30 90 23 116/58 (77) 99 03/03/19 12:15 91 20 101/64 (76) 99 03/03/19 12:00 86 03/03/19 12:00 35 03/03/19 12:00 101/64 03/03/19 12:00 Mechanical Ventilator 03/03/19 12:00 98.7 90 22 100/57 (71) 99 03/03/19 11:45 90 16 99/71 (80) 99 03/03/19 11:30 85 14 107/56 (73) 99 03/03/19 11:15 83 14 95/57 (70) 98 03/03/19 11:00 95/57 03/03/19 11:00 85 17 102/61 (75) 100 03/03/19 10:58 85 16 35 03/03/19 10:45 84 16 94/57 (69) 99 03/03/19 10:30 86 16 89/49 (62) 98 03/03/19 10:30 86/53 Intake and Output 03/03/19 03/04/19 18:59 06:59 Intake Total 995.625 ml 780 ml Output Total 480 ml 240 ml Balance 515.625 ml 540 ml Free Water 40 ml 30 ml IV Total 355.625 ml 150 ml Tube Feeding 600 ml 600 ml Output Urine Total 280 ml 240 ml Stool Total 200 ml Laboratory Tests 03/04/19 05:17: White Blood Count 12.2H, Red Blood Count 2.85L, Hemoglobin 9.1L, Hematocrit 28.5L, Mean Corpuscular Volume 100H, Mean Corpuscular Hemoglobin 32.0H, Mean Corpuscular Hemoglobin Concent 32.0, Red Cell Distribution Width 18.9H, Platelet Count 72L, Mean Platelet Volume 9.1, Neutrophils (%) (Auto) , Lymphocytes (%) (Auto) , Monocytes (%) (Auto) , Eosinophils (%) (Auto) , Basophils (%) (Auto) , Differential Total Cells Counted 100, Neutrophils % ( Manual) 82H, Lymphocytes % (Manual) 10L, Monocytes % (Manual) 6, Eosinophils % ( Manual) 1, Basophils % (Manual) 0, Band Neutrophils 1, Platelet Estimate DecreasedL, Platelet Morphology Normal, Hypochromasia 1+, Anisocytosis 2+, Macrocytosis 1+, Ovalocytes Occasional, Sodium Level 145, Potassium Level 3.9, Chloride Level 113H, Carbon Dioxide Level 25, Anion Gap 7, Blood Urea Nitrogen 33H, Creatinine 1.0, Estimat Glomerular Filtration Rate , Glucose Level 173H, Uric Acid 6.5, Calcium Level 7.7L, Phosphorus Level 2.9, Magnesium Level 1.8, Total Bilirubin 2.4H, Direct Bilirubin 1.8H, Aspartate Amino Transf (AST/SGOT) 80H, Alanine Aminotransferase (ALT/SGPT) 54, Alkaline Phosphatase 203H, Total Protein 5.4L, Albumin 1.5L, Globulin 3.9, Albumin/Globulin Ratio 0.4L, Digoxin Level 2.2H Height (Feet): 5 Height (Inches): 6.00 Weight (Pounds): 162 Objective General Appearance: WD/WN, confused. more responsive, orally intubated Neck: supple Cardiovascular: irregularly irregular Respiratory/Chest: chest wall non-tender, lungs clear, normal breath sounds, no respiratory distress Abdomen: normal bowel sounds, non tender, soft, no organomegaly Edema: no edema noted Arm (L), no edema noted Arm (R), no edema noted Leg (L), no edema noted Leg (R), no edema noted Pedal (L), no edema noted Pedal (R), no edema noted Generalized Neurologic: disoriented Mitchel Reis MD Mar 04, 2019 10:28
[2019-03-04] MEDS ORDERED: Spironolactone 25mg tab ORAL SCH (10:30)
--- NOTE | 2019-03-04 10:47 | Infectious Diseases Prog Note ---
Assessment/Plan Assessment/Plan A 1. pneumonia treated 2. fungal UTI 3.Acute renal failure 4. septic shock 5. CHF, systolic 6. dementia 7. Hypoxic respiratory failure 8. 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 Portal hypertension 12. 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 Discontinue Levaquin 2. Start on Flagyl Subjective ROS Limited/Unobtainable: Yes Constitutional: Denies: fever Cardiovascular: Reports: other - on Levophed Gastrointestinal/Abdominal: Reports: diarrhea Allergies: Coded Allergies: No Known Allergies (Unverified , 02/19/19) Objective Vital Signs Last 24 Hour Vital Signs Date Time Temp Pulse Resp B/P (MAP) Pulse Ox O2 Delivery O2 Flow Rate FiO2 03/04/19 10:00 100 18 135/66 (89) 100 03/04/19 09:15 97 17 109/70 (83) 100 03/04/19 09:07 100 16 35 03/04/19 09:00 100 03/04/19 09:00 95 15 105/60 (75) 99 03/04/19 08:45 96 21 100/60 (73) 03/04/19 08:30 96 21 107/59 (75) 03/04/19 08:15 93 9 107/57 (74) 03/04/19 08:00 Mechanical Ventilator 03/04/19 08:00 92 03/04/19 08:00 35 03/04/19 08:00 98.7 91 11 103/59 (74) 03/04/19 07:15 96 18 136/62 (86) 99 03/04/19 07:00 96 18 110/62 (78) 99 03/04/19 06:45 94 25 35 03/04/19 06:00 108/56 03/04/19 06:00 97 18 108/56 (73) 82 03/04/19 05:30 90 15 96/58 (71) 98 03/04/19 05:14 94 19 35 03/04/19 05:00 106/51 03/04/19 05:00 91 16 106/51 (69) 03/04/19 04:30 93 16 124/55 (78) 03/04/19 04:00 35 03/04/19 04:00 98.6 92 14 96/65 (75) 03/04/19 04:00 Mechanical Ventilator 03/04/19 04:00 107/51 03/04/19 04:00 91 03/04/19 03:30 89 16 81/49 (60) 03/04/19 03:05 95 17 35 03/04/19 03:00 113/66 03/04/19 03:00 92 17 107/58 (74) 03/04/19 02:30 97 26 133/53 (79) 100 03/04/19 02:00 98 22 119/61 (80) 98 03/04/19 02:00 95/52 03/04/19 01:30 94 22 102/54 (70) 97 03/04/19 01:06 91 16 35 03/04/19 01:00 94 21 95/55 (68) 97 03/04/19 01:00 95/55 03/04/19 00:30 95 21 106/59 (75) 97 03/04/19 00:00 Mechanical Ventilator 03/04/19 00:00 35 03/04/19 00:00 98.7 92 19 96/58 (71) 98 03/04/19 00:00 91 03/03/19 23:30 93 19 97/54 (68) 98 03/03/19 23:05 88 19 35 03/03/19 23:00 100/54 03/03/19 23:00 93 17 110/57 (74) 99 03/03/19 22:30 91 19 94/63 (73) 99 03/03/19 22:07 93 03/03/19 22:00 90 16 97/58 (71) 99 03/03/19 22:00 90/62 03/03/19 21:30 92 16 87/54 (65) 99 03/03/19 21:11 87 21 35 03/03/19 21:00 88 19 93/52 (66) 98 03/03/19 21:00 95/57 03/03/19 20:30 98 20 92/59 (70) 99 03/03/19 20:04 101 118/64 03/03/19 20:00 Mechanical Ventilator 03/03/19 20:00 98.5 98 22 118/64 (82) 99 03/03/19 20:00 35 03/03/19 20:00 111/72 03/03/19 20:00 96 03/03/19 19:30 97 24 85/64 (71) 99 03/03/19 19:10 93 21 35 03/03/19 19:00 109/80 03/03/19 19:00 99 24 108/65 (79) 98 03/03/19 18:30 98 21 110/57 (74) 99 03/03/19 18:00 107/57 03/03/19 18:00 99 17 102/58 (73) 98 03/03/19 17:30 99 27 123/85 (98) 03/03/19 17:11 89 16 35 03/03/19 17:00 99 27 123/85 (98) 03/03/19 17:00 120/65 03/03/19 16:30 100 22 101/69 (80) 98 03/03/19 16:00 90 03/03/19 16:00 35 03/03/19 16:00 105/61 03/03/19 16:00 Mechanical Ventilator 03/03/19 16:00 98.8 94 22 111/70 (84) 99 03/03/19 15:30 97 15 115/63 (80) 99 03/03/19 15:15 96 19 35 03/03/19 15:00 107/64 03/03/19 15:00 96 21 101/53 (69) 99 03/03/19 14:30 93 22 102/64 (77) 99 03/03/19 14:15 95 25 110/48 (68) 99 03/03/19 14:00 92 23 107/60 (76) 100 03/03/19 14:00 115/68 03/03/19 13:45 93 22 115/68 (84) 100 03/03/19 13:30 92 24 106/62 (77) 100 03/03/19 13:29 91 21 35 03/03/19 13:15 94 23 105/74 (84) 100 03/03/19 13:00 92 21 100/63 (75) 99 03/03/19 13:00 105/74 03/03/19 12:45 91 20 116/62 (80) 99 03/03/19 12:30 90 23 116/58 (77) 99 03/03/19 12:15 91 20 101/64 (76) 99 03/03/19 12:00 86 03/03/19 12:00 35 11/23/19 12:00 101/64 03/03/19 12:00 Mechanical Ventilator 03/03/19 12:00 98.7 90 22 100/57 (71) 99 03/03/19 11:45 90 16 99/71 (80) 99 03/03/19 11:30 85 14 107/56 (73) 99 03/03/19 11:15 83 14 95/57 (70) 98 03/03/19 11:00 95/57 03/03/19 11:00 85 17 102/61 (75) 100 03/03/19 10:58 85 16 35 Height (Feet): 5 Height (Inches): 6.00 Weight (Pounds): 162 HEENT: mucous membranes moist Respiratory/Chest: lungs clear Cardiovascular: normal rate Abdomen: soft, non tender, other - GT & rectal tube Extremities: other - generalized edema Neurologic/Psychiatric: alert, responsive Laboratory Tests Test 03/04/19 05:17 White Blood Count 12.2 K/UL (4.8-10.8) H Red Blood Count 2.85 M/UL (4.20-5.40) L Hemoglobin 9.1 G/DL (12.0-16.0) L Hematocrit 28.5 % (37.0-47.0) L Mean Corpuscular Volume 100 FL (80-99) H Mean Corpuscular Hemoglobin 32.0 PG (27.0-31.0) H Mean Corpuscular Hemoglobin Concent 32.0 G/DL (32.0-36.0) Red Cell Distribution Width 18.9 % (11.6-14.8) H Platelet Count 72 K/UL (150-450) L Mean Platelet Volume 9.1 FL (6.5-10.1) Neutrophils (%) (Auto) % (45.0-75.0) Lymphocytes (%) (Auto) % (20.0-45.0) Monocytes (%) (Auto) % (1.0-10.0) Eosinophils (%) (Auto) % (0.0-3.0) Basophils (%) (Auto) % (0.0-2.0) Differential Total Cells Counted 100 Neutrophils % (Manual) 82 % (45-75) H Lymphocytes % (Manual) 10 % (20-45) L Monocytes % (Manual) 6 % (1-10) Eosinophils % (Manual) 1 % (0-3) Basophils % (Manual) 0 % (0-2) Band Neutrophils 1 % (0-8) Platelet Estimate Decreased L Platelet Morphology Normal Hypochromasia 1+ Anisocytosis 2+ Macrocytosis 1+ Ovalocytes Occasional Sodium Level 145 MMOL/L (136-145) Potassium Level 3.9 MMOL/L (3.5-5.1) Chloride Level 113 MMOL/L (98-107) H Carbon Dioxide Level 25 MMOL/L (21-32) Anion Gap 7 mmol/L (5-15) Blood Urea Nitrogen 33 mg/dL (7-18) H Creatinine 1.0 MG/DL (0.55-1.30) Estimat Glomerular Filtration Rate mL/min (>60) Glucose Level 173 MG/DL (74-106) H Uric Acid 6.5 MG/DL (2.6-7.2) Calcium Level 7.7 MG/DL (8.5-10.1) L Phosphorus Level 2.9 MG/DL (2.5-4.9) Magnesium Level 1.8 MG/DL (1.8-2.4) Total Bilirubin 2.4 MG/DL (0.2-1.0) H Direct Bilirubin 1.8 MG/DL (0.0-0.3) H Aspartate Amino Transf (AST/SGOT) 80 U/L (15-37) H Alanine Aminotransferase (ALT/SGPT) 54 U/L (12-78) Alkaline Phosphatase 203 U/L (46-116) H Total Protein 5.4 G/DL (6.4-8.2) L Albumin 1.5 G/DL (3.4-5.0) L Globulin 3.9 g/dL Albumin/Globulin Ratio 0.4 (1.0-2.7) L Digoxin Level 2.2 NG/ML (0.9-2.0) H Current Medications Medications (Trade) Dose Ordered Sig/Pam Route PRN Reason Start Time Stop Time Status Last Admin Dose Admin Acetaminophen (Tylenol) 650 mg Q4H PRN ORAL Mild Pain/Temp > 100.5 02/19/19 17:15 03/21/19 17:14 03/03/19 06:18 Acetylcysteine (Mucomyst) 100 mg TIDRT HHN 03/04/19 09:15 04/03/19 09:14 Albuterol/ Ipratropium (Albuterol/ Ipratropium) 3 ml Q4H PRN N Shortness of Breath 03/04/19 09:45 03/09/19 09:44 Chlorhexidine Gluconate (Dayna-Hex 2%) 1 applic DAILY@2000 TOPIC 02/20/19 20:00 03/22/19 19:59 03/03/19 19:33 Digoxin (Lanoxin) 0.125 mg DAILY NG 03/04/19 09:00 04/03/19 08:59 Furosemide (Lasix) 20 mg ONCE IV 03/04/19 10:30 03/04/19 11:30 Levofloxacin (Levaquin) 250 mg DAILY ORAL 02/27/19 09:00 03/04/19 23:59 03/04/19 09:32 Midodrine (Pro-Amatine) 2.5 mg THREE TIMES A DAY NG 03/02/19 13:15 04/01/19 13:14 03/04/19 09:32 Norepinephrine Bitartrate 8 mg/ Dextrose 250 ml @ 0 mls/hr Q24H IV 03/03/19 08:30 04/02/19 08:29 03/04/19 03:00 Pantoprazole (Protonix) 40 mg Q12HR IVP 02/20/19 21:00 03/21/19 17:59 03/04/19 09:32 Spironolactone (Aldactone) 25 mg DAILY ORAL 03/04/19 10:30 04/03/19 10:29 Neville Cunningham MD Mar 04, 2019 10:47
[2019-03-04] MEDS ORDERED: Acetaminophen 650mg/20.3ml GT PRN (11:00)
--- NOTE | 2019-03-04 11:20 | NUR ---
NURSE NOTES: Turned and repostiioned. Oral care done. Levophed drip running at 8mcg/min, BP 111/78.
--- NOTE | 2019-03-04 11:41 | Nephrology Progress Note ---
Assessment/Plan Problem List: (1) Acute respiratory failure (2) Septic shock (3) Renal failure (4) Atrial fibrillation with rapid ventricular response (5) Cardiomyopathy Assessment Renal failure - ? Acute on Chronic, Partly dehydration Septic Shock UTI AT Fib with FVR h/o DM, proteinuria , HypoAlbuminemia Plan Kayexelaate as needed dig IV one dose given previously Midodrine K and Mag supplement as needed pulm support per consultants previously: stop NS intubated On 2 pressors BP remains low Poor prognosis - remains full code for now slow Hydrate 2D echo EjFx 40% antibiotics monitor renal parameters avoid nephrotoxics per orders Subjective ROS Limited/Unobtainable: Yes Objective Objective Last 24 Hour Vital Signs Date Time Temp Pulse Resp B/P (MAP) Pulse Ox O2 Delivery O2 Flow Rate FiO2 03/04/19 10:49 103 21 35 03/04/19 10:00 100 18 135/66 (89) 100 03/04/19 09:15 97 17 109/70 (83) 100 03/04/19 09:07 100 16 35 03/04/19 09:00 100 03/04/19 09:00 95 15 105/60 (75) 99 03/04/19 08:45 96 21 100/60 (73) 03/04/19 08:30 96 21 107/59 (75) 03/04/19 08:15 93 9 107/57 (74) 03/04/19 08:00 Mechanical Ventilator 03/04/19 08:00 92 03/04/19 08:00 35 03/04/19 08:00 98.7 91 11 103/59 (74) 03/04/19 07:15 96 18 136/62 (86) 99 03/04/19 07:00 96 18 110/62 (78) 99 03/04/19 06:45 94 25 35 03/04/19 06:00 108/56 03/04/19 06:00 97 18 108/56 (73) 82 03/04/19 05:30 90 15 96/58 (71) 98 03/04/19 05:14 94 19 35 03/04/19 05:00 106/51 03/04/19 05:00 91 16 106/51 (69) 03/04/19 04:30 93 16 124/55 (78) 03/04/19 04:00 35 03/04/19 04:00 98.6 92 14 96/65 (75) 03/04/19 04:00 Mechanical Ventilator 03/04/19 04:00 107/51 03/04/19 04:00 91 03/04/19 03:30 89 16 81/49 (60) 03/04/19 03:05 95 17 35 03/04/19 03:00 113/66 03/04/19 03:00 92 17 107/58 (74) 03/04/19 02:30 97 26 133/53 (79) 100 03/04/19 02:00 98 22 119/61 (80) 98 03/04/19 02:00 95/52 03/04/19 01:30 94 22 102/54 (70) 97 03/04/19 01:06 91 16 35 03/04/19 01:00 94 21 95/55 (68) 97 03/04/19 01:00 95/55 03/04/19 00:30 95 21 106/59 (75) 97 03/04/19 00:00 Mechanical Ventilator 03/04/19 00:00 35 03/04/19 00:00 98.7 92 19 96/58 (71) 98 03/04/19 00:00 91 03/03/19 23:30 93 19 97/54 (68) 98 03/03/19 23:05 88 19 35 03/03/19 23:00 100/54 03/03/19 23:00 93 17 110/57 (74) 99 03/03/19 22:30 91 19 94/63 (73) 99 03/03/19 22:07 93 03/03/19 22:00 90 16 97/58 (71) 99 03/03/19 22:00 90/62 03/03/19 21:30 92 16 87/54 (65) 99 03/03/19 21:11 87 21 35 03/03/19 21:00 88 19 93/52 (66) 98 03/03/19 21:00 95/57 03/03/19 20:30 98 20 92/59 (70) 99 03/03/19 20:04 101 118/64 03/03/19 20:00 Mechanical Ventilator 03/03/19 20:00 98.5 98 22 118/64 (82) 99 03/03/19 20:00 35 03/03/19 20:00 111/72 03/03/19 20:00 96 03/03/19 19:30 97 24 85/64 (71) 99 03/03/19 19:10 93 21 35 03/03/19 19:00 109/80 03/03/19 19:00 99 24 108/65 (79) 98 03/03/19 18:30 98 21 110/57 (74) 99 03/03/19 18:00 107/57 03/03/19 18:00 99 17 102/58 (73) 98 03/03/19 17:30 99 27 123/85 (98) 03/03/19 17:11 89 16 35 03/03/19 17:00 99 27 123/85 (98) 03/03/19 17:00 120/65 03/03/19 16:30 100 22 101/69 (80) 98 03/03/19 16:00 90 03/03/19 16:00 35 03/03/19 16:00 105/61 03/03/19 16:00 Mechanical Ventilator 03/03/19 16:00 98.8 94 22 111/70 (84) 99 03/03/19 15:30 97 15 115/63 (80) 99 03/03/19 15:15 96 19 35 03/03/19 15:00 107/64 03/03/19 15:00 96 21 101/53 (69) 99 03/03/19 14:30 93 22 102/64 (77) 99 03/03/19 14:15 95 25 110/48 (68) 99 03/03/19 14:00 92 23 107/60 (76) 100 03/03/19 14:00 115/68 03/03/19 13:45 93 22 115/68 (84) 100 03/03/19 13:30 92 24 106/62 (77) 100 03/03/19 13:29 91 21 35 03/03/19 13:15 94 23 105/74 (84) 100 03/03/19 13:00 92 21 100/63 (75) 99 03/03/19 13:00 105/74 03/03/19 12:45 91 20 116/62 (80) 99 03/03/19 12:30 90 23 116/58 (77) 99 03/03/19 12:15 91 20 101/64 (76) 99 03/03/19 12:00 86 03/03/19 12:00 35 03/03/19 12:00 101/64 03/03/19 12:00 Mechanical Ventilator 03/03/19 12:00 98.7 90 22 100/57 (71) 99 03/03/19 11:45 90 16 99/71 (80) 99 Intake and Output 03/03/19 03/04/19 18:59 06:59 Intake Total 995.625 ml 780 ml Output Total 480 ml 240 ml Balance 515.625 ml 540 ml Free Water 40 ml 30 ml IV Total 355.625 ml 150 ml Tube Feeding 600 ml 600 ml Output Urine Total 280 ml 240 ml Stool Total 200 ml Laboratory Tests 03/04/19 05:17: White Blood Count 12.2H, Red Blood Count 2.85L, Hemoglobin 9.1L, Hematocrit 28.5L, Mean Corpuscular Volume 100H, Mean Corpuscular Hemoglobin 32.0H, Mean Corpuscular Hemoglobin Concent 32.0, Red Cell Distribution Width 18.9H, Platelet Count 72L, Mean Platelet Volume 9.1, Neutrophils (%) (Auto) , Lymphocytes (%) (Auto) , Monocytes (%) (Auto) , Eosinophils (%) (Auto) , Basophils (%) (Auto) , Differential Total Cells Counted 100, Neutrophils % ( Manual) 82H, Lymphocytes % (Manual) 10L, Monocytes % (Manual) 6, Eosinophils % ( Manual) 1, Basophils % (Manual) 0, Band Neutrophils 1, Platelet Estimate DecreasedL, Platelet Morphology Normal, Hypochromasia 1+, Anisocytosis 2+, Macrocytosis 1+, Ovalocytes Occasional, Sodium Level 145, Potassium Level 3.9, Chloride Level 113H, Carbon Dioxide Level 25, Anion Gap 7, Blood Urea Nitrogen 33H, Creatinine 1.0, Estimat Glomerular Filtration Rate , Glucose Level 173H, Uric Acid 6.5, Calcium Level 7.7L, Phosphorus Level 2.9, Magnesium Level 1.8, Total Bilirubin 2.4H, Direct Bilirubin 1.8H, Aspartate Amino Transf (AST/SGOT) 80H, Alanine Aminotransferase (ALT/SGPT) 54, Alkaline Phosphatase 203H, Total Protein 5.4L, Albumin 1.5L, Globulin 3.9, Albumin/Globulin Ratio 0.4L, Digoxin Level 2.2H Height (Feet): 5 Height (Inches): 6.00 Weight (Pounds): 162 General Appearance: no apparent distress EENT: other - vented Cardiovascular: tachycardia Respiratory/Chest: decreased breath sounds Abdomen: distended Objective no change Jt Louis MD Mar 04, 2019 11:41
--- NOTE | 2019-03-04 12:41 | Surgery Progress Note ---
Surgery Progress Note Subjective Additional Comments lft's worsening alert and somewhat responsive ill in ICU still on vent support Objective Last 24 Hour Vital Signs Date Time Temp Pulse Resp B/P (MAP) Pulse Ox O2 Delivery O2 Flow Rate FiO2 03/04/19 11:00 100/56 03/04/19 10:49 103 21 35 03/04/19 10:00 98/52 03/04/19 10:00 100 18 135/66 (89) 100 03/04/19 09:15 97 17 109/70 (83) 100 03/04/19 09:07 100 16 35 03/04/19 09:00 100 03/04/19 09:00 109/70 03/04/19 09:00 95 15 105/60 (75) 99 03/04/19 08:45 96 21 100/60 (73) 03/04/19 08:30 96 21 107/59 (75) 03/04/19 08:15 93 9 107/57 (74) 03/04/19 08:00 Mechanical Ventilator 03/04/19 08:00 92 03/04/19 08:00 107/57 03/04/19 08:00 35 03/04/19 08:00 98.7 91 11 103/59 (74) 03/04/19 07:15 96 18 136/62 (86) 99 03/04/19 07:00 96 18 110/62 (78) 99 03/04/19 07:00 136/62 03/04/19 06:45 94 25 35 03/04/19 06:00 108/56 03/04/19 06:00 97 18 108/56 (73) 82 03/04/19 05:30 90 15 96/58 (71) 98 03/04/19 05:14 94 19 35 03/04/19 05:00 106/51 03/04/19 05:00 91 16 106/51 (69) 03/04/19 04:30 93 16 124/55 (78) 03/04/19 04:00 35 03/04/19 04:00 98.6 92 14 96/65 (75) 03/04/19 04:00 Mechanical Ventilator 03/04/19 04:00 107/51 03/04/19 04:00 91 03/04/19 03:30 89 16 81/49 (60) 03/04/19 03:05 95 17 35 11/24/19 03:00 113/66 03/04/19 03:00 92 17 107/58 (74) 03/04/19 02:30 97 26 133/53 (79) 100 03/04/19 02:00 98 22 119/61 (80) 98 03/04/19 02:00 95/52 03/04/19 01:30 94 22 102/54 (70) 97 03/04/19 01:06 91 16 35 03/04/19 01:00 94 21 95/55 (68) 97 03/04/19 01:00 95/55 03/04/19 00:30 95 21 106/59 (75) 97 03/04/19 00:00 Mechanical Ventilator 03/04/19 00:00 35 03/04/19 00:00 98.7 92 19 96/58 (71) 98 03/04/19 00:00 91 03/03/19 23:30 93 19 97/54 (68) 98 03/03/19 23:05 88 19 35 03/03/19 23:00 100/54 03/03/19 23:00 93 17 110/57 (74) 99 03/03/19 22:30 91 19 94/63 (73) 99 03/03/19 22:07 93 03/03/19 22:00 90 16 97/58 (71) 99 03/03/19 22:00 90/62 03/03/19 21:30 92 16 87/54 (65) 99 03/03/19 21:11 87 21 35 03/03/19 21:00 88 19 93/52 (66) 98 03/03/19 21:00 95/57 03/03/19 20:30 98 20 92/59 (70) 99 03/03/19 20:04 101 118/64 03/03/19 20:00 Mechanical Ventilator 03/03/19 20:00 98.5 98 22 118/64 (82) 99 03/03/19 20:00 35 03/03/19 20:00 111/72 03/03/19 20:00 96 03/03/19 19:30 97 24 85/64 (71) 99 03/03/19 19:10 93 21 35 03/03/19 19:00 109/80 03/03/19 19:00 99 24 108/65 (79) 98 03/03/19 18:30 98 21 110/57 (74) 99 03/03/19 18:00 107/57 03/03/19 18:00 99 17 102/58 (73) 98 03/03/19 17:30 99 27 123/85 (98) 03/03/19 17:11 89 16 35 03/03/19 17:00 99 27 123/85 (98) 03/03/19 17:00 120/65 03/03/19 16:30 100 22 101/69 (80) 98 03/03/19 16:00 90 03/03/19 16:00 35 03/03/19 16:00 105/61 03/03/19 16:00 Mechanical Ventilator 03/03/19 16:00 98.8 94 22 111/70 (84) 99 03/03/19 15:30 97 15 115/63 (80) 99 03/03/19 15:15 96 19 35 03/03/19 15:00 107/64 03/03/19 15:00 96 21 101/53 (69) 99 03/03/19 14:30 93 22 102/64 (77) 99 03/03/19 14:15 95 25 110/48 (68) 99 03/03/19 14:00 92 23 107/60 (76) 100 03/03/19 14:00 115/68 03/03/19 13:45 93 22 115/68 (84) 100 03/03/19 13:30 92 24 106/62 (77) 100 03/03/19 13:29 91 21 35 03/03/19 13:15 94 23 105/74 (84) 100 03/03/19 13:00 92 21 100/63 (75) 99 03/03/19 13:00 105/74 03/03/19 12:45 91 20 116/62 (80) 99 I&O Intake and Output 03/03/19 03/04/19 18:59 06:59 Intake Total 995.625 ml 780 ml Output Total 480 ml 240 ml Balance 515.625 ml 540 ml Free Water 40 ml 30 ml IV Total 355.625 ml 150 ml Tube Feeding 600 ml 600 ml Output Urine Total 280 ml 240 ml Stool Total 200 ml Dressing: other Wound: other Drains: other Cardiovascular: RSR Respiratory: decreased breath sounds Abdomen: soft, present bowel sounds, non-distended Extremities: no cyanosis, other Laboratory Tests Test 03/04/19 05:17 White Blood Count 12.2 K/UL (4.8-10.8) H Red Blood Count 2.85 M/UL (4.20-5.40) L Hemoglobin 9.1 G/DL (12.0-16.0) L Hematocrit 28.5 % (37.0-47.0) L Mean Corpuscular Volume 100 FL (80-99) H Mean Corpuscular Hemoglobin 32.0 PG (27.0-31.0) H Mean Corpuscular Hemoglobin Concent 32.0 G/DL (32.0-36.0) Red Cell Distribution Width 18.9 % (11.6-14.8) H Platelet Count 72 K/UL (150-450) L Mean Platelet Volume 9.1 FL (6.5-10.1) Neutrophils (%) (Auto) % (45.0-75.0) Lymphocytes (%) (Auto) % (20.0-45.0) Monocytes (%) (Auto) % (1.0-10.0) Eosinophils (%) (Auto) % (0.0-3.0) Basophils (%) (Auto) % (0.0-2.0) Differential Total Cells Counted 100 Neutrophils % (Manual) 82 % (45-75) H Lymphocytes % (Manual) 10 % (20-45) L Monocytes % (Manual) 6 % (1-10) Eosinophils % (Manual) 1 % (0-3) Basophils % (Manual) 0 % (0-2) Band Neutrophils 1 % (0-8) Platelet Estimate Decreased L Platelet Morphology Normal Hypochromasia 1+ Anisocytosis 2+ Macrocytosis 1+ Ovalocytes Occasional Sodium Level 145 MMOL/L (136-145) Potassium Level 3.9 MMOL/L (3.5-5.1) Chloride Level 113 MMOL/L (98-107) H Carbon Dioxide Level 25 MMOL/L (21-32) Anion Gap 7 mmol/L (5-15) Blood Urea Nitrogen 33 mg/dL (7-18) H Creatinine 1.0 MG/DL (0.55-1.30) Estimat Glomerular Filtration Rate mL/min (>60) Glucose Level 173 MG/DL (74-106) H Uric Acid 6.5 MG/DL (2.6-7.2) Calcium Level 7.7 MG/DL (8.5-10.1) L Phosphorus Level 2.9 MG/DL (2.5-4.9) Magnesium Level 1.8 MG/DL (1.8-2.4) Total Bilirubin 2.4 MG/DL (0.2-1.0) H Direct Bilirubin 1.8 MG/DL (0.0-0.3) H Aspartate Amino Transf (AST/SGOT) 80 U/L (15-37) H Alanine Aminotransferase (ALT/SGPT) 54 U/L (12-78) Alkaline Phosphatase 203 U/L (46-116) H Total Protein 5.4 G/DL (6.4-8.2) L Albumin 1.5 G/DL (3.4-5.0) L Globulin 3.9 g/dL Albumin/Globulin Ratio 0.4 (1.0-2.7) L Digoxin Level 2.2 NG/ML (0.9-2.0) H Plan Problems: (1) Septic shock Assessment & Plan: 78-year-old female in septic shock in the intensive care unit on pressors. Leukocytosis, anemia, abnormal labs. Tachycardic. On respiratory support. On examination patient identified to have slowed capillary refill in the distal extremities. Patient furthermore identified to have a weeping wound in the right great toe. Patient is currently very ill and septic and requiring pressors. Unfortunately given her medical condition comorbidities and history there is potential for distal vasoconstriction and potentially even necrosis of the distal aspects but further life-saving measures pressors currently required and necessary and indicated. wound re-evaluated. necrotic epidermal tissue sloth off but underlying tissues with backbleeding. motor noted spont in foot and toes We will continue to monitor extremities and evaluate them. Will wean off pressors as possible. Lactic acidosis improving. Continue IV antibiotics Wean pressors prognosis guarded labs slowly improving now still ill and guarded will discuss trach as she is alert/awake but weaning from vent slow Appreciate ICU care and management We will follow with recommendations (2) Abdominal pain Assessment & Plan: Chronic liver disease/cirrhosis with signs of portal hypertension including moderate ascites and hepatofugal flow in the portal vein. Gallbladder wall edema nonspecific Bilateral pleural effusions. Medical renal disease Findings: There is extensive artifact from the patient's arms limiting evaluation. Oral contrast was given. Gastrostomy tube is noted in good position. There are small bilateral pleural effusions present with adjacent ill-defined parenchymal density either atelectasis or pneumonia. Correlate clinically. Small pericardial effusion is present and there is generalized cardiomegaly present. Hiatal hernia noted. Aorta and coronary artery calcification present. Mild ascites is demonstrated. No compelling evidence for bowel obstruction. There is extensive diverticulosis involving the colon without obvious diverticulitis. Generalized anasarca noted. The appendix is not seen. The kidneys show no obvious hydronephrosis. The right kidney appears atrophic. There is a suggestion of cysts within the right kidney but this is grossly limited in terms of visualization. The gallbladder is demonstrated. The rectum appears low in location suggestive of prolapse and with a moderate degree of fecal retention. IMPRESSION: Limited evaluation due to artifact. Mild to moderate ascites Trace bilateral pleural effusions. Basilar atelectasis and/or infiltrate. Trace pericardial effusion Generalized cardiomegaly. Atherosclerotic vascular disease Extensive diverticulosis of the colon. No definite diverticulitis. Anasarca Gross catheter Query rectal prolapse reviewed US again lft's cont to rise likely liver decompensation trend (3) Severe sepsis Tristan Heller Mar 04, 2019 12:41
--- NOTE | 2019-03-04 13:00 | NUR ---
NURSE NOTES: Patient is able to shake head for yes or no. Weeping noted from BUE, blue pad placed under arms. bilateral heels floated on pillow support. Abdomen still distended, Dr. Silvestre is aware.
[2019-03-04] MEDS: Albuterol/Ipratropium 3ml neb HHN PRN ×2 (13:04→19:09)
[2019-03-04] MEDS: metroNIDAZOLE 500mg tab GT SCH ×2 (13:23→21:37)
--- NOTE | 2019-03-04 14:15 | NUR ---
NURSE NOTES: Turned and repositioned. Oral care done. On going levophed drip at 8mcg/min. BP 92/48. No signs of distress.
--- NOTE | 2019-03-04 16:20 | NUR ---
NURSE NOTES: GT dressing changed. Yellow/greenish ooze noted from GT site. Turned and repositioned. Oral care done. Titrated Levophed to 6mcg/min, BP 100/66. Patient appears more awake, able to nod yes or no. Gross draining 80ml-120ml after lasix IVP.
--- NOTE | 2019-03-04 19:13 | NUR ---
HAND-OFF: Report given to Abbi De La O RN using SBAR.
--- NOTE | 2019-03-04 19:40 | NUR ---
NURSE NOTES: PATIENT AWOKE, ABLE TO EYE CONTACT, UNABLE TO FOLLOW COMMANDS, ON ETT TO VENT, AC16/TV500/FIO2 35%/PEEP 5, O2 SATURATION 100% NOTED, ABDOMEN SOFT, DISTENDED, G TUBE INTACT AND PATENT, ONGOING VITAL AF 1.2 AT 50ML/HR, NO RESIDUE NOTED, KEPT HOB OVER 30 DEGREES, RECTAL TUBE INTACT AND BROWN COLOR STOOL OUTED, F/C INTACT AND PATENT, MELLO COLOR URINE OUTED, PICC LINE TO LEFT UPPER ARM, INTACT AND PATENT, ONGOING LEVOPHED 6MCG/MIN VIA PICC LINE, LEFT ARM WEEPING AND NOTED GENERALIZED PITTING EDEMA, KEPT 2 POINT SOFT RESTRAINTS FOR SAFETY, SCD'S TO BOTH LOWER LEGS, ON P200 BED AND BED ALARM, MADE LOWER BED POSITION, PROVIDED CALL LIGHT WITHIN REACH, WILL CONTINUE TO MONITOR.
[2019-03-04] MEDS: Dyna-Hex 2% Top Sol 2oz TOPIC SCH (19:49)
--- NOTE | 2019-03-04 21:02 | Progress Note ---
DATE: 03/03/2019 (2nd visit) CARDIOLOGY PROGRESS NOTE SUBJECTIVE: The patient remains on pressor support. Weaning has been unsuccessful. She remains on full ventilator support. PHYSICAL EXAMINATION: VITAL SIGNS: Blood pressure 96/58 earlier now improved to 100/60, heart rate 96 to 100, respiratory rate up to 21. No fevers. NECK: Thin trach secretions. LUNGS: Bilateral breath sounds and rhonchi. HEART: Irregularly irregular rhythm. Normal S1, S2. ABDOMEN: Soft, distended, ascites. EXTREMITIES: Moderate edema. LABORATORY AND DIAGNOSTIC DATA: White count 12, hemoglobin 9.1. Sodium 145, potassium 3.9, BUN 33, creatinine 1. Magnesium 1.8. Albumin 1.5. IMPRESSION: 1. Respiratory failure, shock, sepsis, adrenal insufficiency, acute on chronic systolic and diastolic congestive heart failure, predominantly right-sided, cirrhosis with ascites. Digoxin toxicity with level of 2.2. Although this may be a false positive due to recent loading. 2. Paroxysmal atrial fibrillation. PLAN: 1. Hold digoxin. 2. Recheck level. 3. Continue antimicrobials . 4. Pressors with taper as able. 5. No diuresis at this time. 6. Consider additional stress dose steroid therapy. 7. Antimicrobials per Infectious Diseases organizational effectiveness consultant. 8. Not able to wean off vent at this time. 9. Protein supplement by feeding tube. Jimmie Mason M.D. DR: Corry JOB#: [id number] CC: CHRISTINE
--- NOTE | 2019-03-04 21:54 | NUR ---
NURSE NOTES: PATIENT ASLEEP STATUS, REPOSITIONED, NO RESISTANCE TO CARE, WILL CONTINUE TO MONITOR.
[2019-03-05] VITALS (76 sets, daily range): BP systolic 65–127; BP diastolic 33–84
--- NOTE | 2019-03-05 00:53 | NUR ---
NURSE NOTES: PATIENT AWOKE, NO PAIN OR SOB NOTED, ONGOING LEVOPHED DRIP 8MCG/MIN VIA PICC LINE, WILL CONTINUE TO MONITOR.
--- NOTE | 2019-03-05 02:30 | NUR ---
NURSE NOTES: BP 65/33MMHG NOTED, INCREASED LEVOPHED DRIP TO 10MCG/MIN, WILL CONTINUE TO MONITOR.
--- NOTE | 2019-03-05 04:22 | NUR ---
NURSE NOTES: MORNING CARE AND ORAL CARE WAS DONE, PATIENT TRIED TO TOUCH ENDOTUBE WHILE CARE, SECURED RESTRAINTS FOR SAFETY, ELEVATED BOTH ARM DUE TO EDEMA, G TUBE SITE LOOSEN AND SKIN MACERATION STATUS, FLATUS PRESENT VIA GASTROSTOMY, WILL CONTINUE TO MONITOR.
[2019-03-05 04:56] LABS: HEMATOCRIT 28.9 % (37.0-47.0); HEMOGLOBIN 9.4 G/DL (12.0-16.0); MEAN CORPUSCULAR VOLUME 98 FL (80-99); PLATELET COUNT 75 K/UL (150-450); RED BLOOD COUNT 2.94 M/UL (4.20-5.40); RED CELL DISTRIBUTION WIDTH 18.2 % (11.6-14.8); WHITE BLOOD COUNT 12.8 K/UL (4.8-10.8)
[2019-03-05 05:17] LABS: INR 1.1 (0.9-1.1)
[2019-03-05 05:22] LABS: ALANINE AMINOTRANSFERASE 51 U/L (12-78); ALBUMIN 1.5 G/DL (3.4-5.0); ALBUMIN/GLOBULIN RATIO 0.4 (1.0-2.7); ALKALINE PHOSPHATASE 212 U/L (46-116); AMYLASE 145 U/L (25-115); ANION GAP 10 mmol/L (5-15); ASPARTATE AMINO TRANSFERASE 85 U/L (15-37); BILIRUBIN,TOTAL 2.3 MG/DL (0.2-1.0); BLOOD UREA NITROGEN 32 mg/dL (7-18); CALCIUM 7.7 MG/DL (8.5-10.1); CARBON DIOXIDE 23 MMOL/L (21-32); CHLORIDE 112 MMOL/L (98-107); CREATININE 0.9 MG/DL (0.55-1.30); POTASSIUM 3.7 MMOL/L (3.5-5.1); SODIUM 145 MMOL/L (136-145)
[2019-03-05 05:25] LABS: BILIRUBIN,DIRECT 1.7 MG/DL (0.0-0.3)
[2019-03-05] MEDS: metroNIDAZOLE 500mg tab GT SCH ×3 (05:33→20:52)
--- NOTE | 2019-03-05 06:41 | NUR ---
NURSE NOTES: NO ACUTE DISTRESS NOTED AT THIS SHIFT.
--- NOTE | 2019-03-05 07:00 | Progress Note ---
DATE: 03/04/2019 CARDIOLOGY PROGRESS NOTE SUBJECTIVE: The patient remains on pressor support. Weaning has been unsuccessful. She remains on full ventilator support. PHYSICAL EXAMINATION: VITAL SIGNS: Blood pressure 96/58 earlier now improved to 100/60, heart rate 96 to 100, respiratory rate to 21. No fevers. NECK: Thin trach secretions. LUNGS: Bilateral breath sounds and rhonchi. HEART: Irregularly irregular rhythm. Normal S1, S2. ABDOMEN: Soft, distended, ascites. EXTREMITIES: Moderate edema. LABORATORY AND DIAGNOSTIC DATA: White count 12, hemoglobin 9.1. Sodium 145, potassium 3.9, BUN 33, creatinine 1. Magnesium 1.8. Albumin 1.5. IMPRESSION: 1. Respiratory failure, shock, sepsis, adrenal insufficiency, acute on chronic systolic and diastolic congestive heart failure, predominantly right-sided, cirrhosis with ascites. Digoxin toxicity with level of 2.2. Although this may be a false positive due to recent loading. 2. Paroxysmal atrial fibrillation. PLAN: 1. Hold digoxin. 2. Recheck level. 3. Continue antimicrobials . 4. Pressors with taper as able. 5. No diuresis at this time. 6. Consider additional stress dose steroid therapy. 7. Antimicrobials per Infectious Diseases data processing systems consultant. 8. Not able to wean off vent at this time. 9. Protein supplement by feeding tube. Jimmie Mason M.D. DR: Corry JOB#: [id number] CC:
--- NOTE | 2019-03-05 07:17 | NUR ---
NURSE NOTES: SEEN THE PATIENT BY DR. SINGLETARY. REPORTED MD REGARDING G TUBE SITE SKIN LESION AND FLATUS VIA GASTROSTOMY THAT MD WILL LET DR. CARR KNOW, WILL ENDORSE TO NEXT SHIFT.
--- NOTE | 2019-03-05 07:20 | NUR ---
HAND-OFF: Report given to Amanda GALDAMEZ RN.
--- NOTE | 2019-03-05 07:20 | NUR ---
NURSE NOTES: Pt received from sharlene De La O RN in stable condition without cardiopulmonary distress. Pt is awake in bed, AAOx1, makes eye contact when called by name, pt mechanically ventilated via ETT 7.0 noted at 22cm at left lip line with settings of AC 16 TV500 FiO2 35% Peep 5. GT noted running Vital AF 1.2 at 50cc/hr. Rectal tube noted draining liquid-like stool. F/C noted draining light pauly urine. Pt has a KELVIN PICC running norepinephrine at 10mcg/kg/hr. Skin alterations noted. SCDs noted on bilateral lower extremities. Pt noted with bilateral soft wrist restraints, skin noted intact on bilateral wrists, radial pulses are palpable. Bed in lowest position, alarm on, side rails up x 2, call light within reach. Will continue to monitor pt. Addendum: 03/05/19 at 1017 by Ivis Gibson RN Amendment: norepinephrine at 10mcg/min
[2019-03-05] MEDS: Albuterol/Ipratropium 3ml neb HHN PRN ×3 (07:31→19:32)
--- NOTE | 2019-03-05 08:01 | General Progress Note ---
Assessment/Plan Problem List: (1) Septic shock ICD Codes: A41.9 - Sepsis, unspecified organism; R65.21 - Severe sepsis with septic shock SNOMED: 59985993 (2) UTI (urinary tract infection) ICD Codes: N39.0 - Urinary tract infection, site not specified SNOMED: 20972612 Qualifiers: Qualified Codes: N39.0 - Urinary tract infection, site not specified (3) Renal failure ICD Codes: N19 - Unspecified kidney failure SNOMED: 18255660 Qualifiers: Qualified Codes: N17.9 - Acute kidney failure, unspecified (4) Abdominal pain ICD Codes: R10.9 - Unspecified abdominal pain SNOMED: 06669392 Qualifiers: Qualified Codes: R10.32 - Left lower quadrant pain (5) Severe sepsis ICD Codes: A41.9 - Sepsis, unspecified organism; R65.20 - Severe sepsis without septic shock SNOMED: 65355462 (6) Dehydration ICD Codes: E86.0 - Dehydration SNOMED: 38737112 (7) Atrial fibrillation with rapid ventricular response ICD Codes: I48.91 - Unspecified atrial fibrillation SNOMED: 248084313237996 Status: stable, not improved, deteriorating Assessment/Plan: cont supportive care wean vent as able resp rx suctioning hope to avoid trach wean pressors midodrine try albumin for bp try diuresis. monitor bp resp rx and suctioning as needed monitor labs scd iv abx per id tube feeds Subjective ROS Limited/Unobtainable: No Constitutional: Reports: malaise, weakness HEENT: Reports: no symptoms Cardiovascular: Reports: edema Respiratory: Reports: SOB at rest, sputum Gastrointestinal/Abdominal: Reports: difficulty swallowing Genitourinary: Reports: no symptoms Neurologic/Psychiatric: Reports: pre-existing deficit Endocrine: Reports: no symptoms Hematologic/Lymphatic: Reports: no symptoms Allergies: Coded Allergies: No Known Allergies (Unverified , 02/19/19) All Systems: reviewed and negative except above Subjective no events. w/o complaints. remains on the vent. no fevers or chills. no sob. alert. responded well to lasix. BP remains low- on levophed at 10. cannot wean Objective Last 24 Hour Vital Signs Date Time Temp Pulse Resp B/P (MAP) Pulse Ox O2 Delivery O2 Flow Rate FiO2 03/05/19 07:25 96 18 100 Mechanical Ventilator 35 96 18 35 11/25/19 07:00 100 16 98/56 (70) 99 03/05/19 07:00 98/56 03/05/19 06:30 104 17 106/63 (77) 100 03/05/19 06:00 102/66 03/05/19 06:00 112 17 102/66 (78) 100 03/05/19 05:30 102 20 98/62 (74) 100 03/05/19 05:00 100 16 119/57 (77) 100 03/05/19 05:00 100 16 119/57 (77) 100 03/05/19 05:00 119/57 03/05/19 05:00 95 18 35 03/05/19 04:30 106 16 97/82 (87) 100 03/05/19 04:15 103 17 105/68 (80) 100 03/05/19 04:00 98.2 107 16 116/59 (78) 100 03/05/19 04:00 35 03/05/19 04:00 116/59 03/05/19 04:00 Mechanical Ventilator 03/05/19 03:30 107 21 108/80 (89) 100 03/05/19 03:15 109 18 118/67 (84) 100 03/05/19 03:06 116 03/05/19 03:00 110 20 114/57 (76) 100 03/05/19 03:00 114/57 03/05/19 02:36 96 19 35 03/05/19 02:30 65/33 03/05/19 02:30 102 19 65/33 (44) 91 03/05/19 02:15 102 22 109/64 (79) 100 03/05/19 02:00 87/59 03/05/19 02:00 102 21 87/59 (68) 100 03/05/19 01:45 100 19 101/63 (76) 100 03/05/19 01:30 98 17 101/58 (72) 100 03/05/19 01:14 92 18 35 03/05/19 01:00 102/63 03/05/19 01:00 96 16 102/63 (76) 100 03/05/19 00:30 94 16 109/68 (82) 100 03/05/19 00:00 Mechanical Ventilator 03/05/19 00:00 127/58 03/05/19 00:00 98.6 91 14 127/58 (81) 100 03/05/19 00:00 35 03/04/19 23:30 94 14 103/59 (74) 93 03/04/19 23:26 97 20 35 03/04/19 23:03 95 03/04/19 23:00 93 16 70/32 (45) 100 03/04/19 23:00 70/32 03/04/19 22:45 90 17 100/53 (69) 100 03/04/19 22:36 93 17 85/51 (62) 98 03/04/19 22:30 92 16 82/52 (62) 100 03/04/19 22:00 92/48 03/04/19 22:00 92 15 92/48 (63) 100 03/04/19 21:37 94/56 03/04/19 21:30 91 16 94/56 (69) 03/04/19 21:15 92 16 95/48 (64) 100 03/04/19 21:01 95 03/04/19 21:00 92 16 90/56 (67) 100 03/04/19 21:00 90/56 03/04/19 20:47 90 17 35 03/04/19 20:30 88 16 102/56 (71) 100 03/04/19 20:00 86/55 03/04/19 20:00 97.6 94 19 86/55 (65) 98 03/04/19 20:00 35 03/04/19 20:00 Mechanical Ventilator 03/04/19 19:30 91 17 91/52 (65) 100 03/04/19 19:09 89 16 99 Mechanical Ventilator 35 90 16 35 03/04/19 19:00 83 18 96/58 (71) 100 03/04/19 19:00 96/58 03/04/19 18:00 87 18 97/56 (70) 100 03/04/19 18:00 97/58 03/04/19 17:24 88 20 35 03/04/19 17:00 90 18 91/62 (72) 100 03/04/19 17:00 91/62 03/04/19 16:30 95 17 119/92 (101) 100 03/04/19 16:00 98.9 94 19 129/91 (104) 98 03/04/19 16:00 35 03/04/19 16:00 Mechanical Ventilator 03/04/19 16:00 129/91 03/04/19 16:00 95 03/04/19 15:29 95 17 35 03/04/19 15:00 87/66 03/04/19 15:00 97 19 97/68 (78) 100 03/04/19 14:00 101 19 92/45 (61) 100 03/04/19 14:00 92/48 03/04/19 13:06 91 16 100 Mechanical Ventilator 35 97 16 35 03/04/19 13:00 93 19 108/67 (81) 100 03/04/19 13:00 91/42 03/04/19 12:30 94 19 103/66 (78) 100 03/04/19 12:00 35 03/04/19 12:00 92 03/04/19 12:00 Mechanical Ventilator 03/04/19 12:00 111/78 03/04/19 12:00 98.6 91 10 111/78 (89) 03/04/19 11:30 96 18 100/84 (89) 100 03/04/19 11:00 92 17 106/59 (75) 100 03/04/19 11:00 100/56 03/04/19 10:49 103 21 35 03/04/19 10:00 98/52 03/04/19 10:00 100 18 135/66 (89) 100 03/04/19 09:15 97 17 109/70 (83) 100 03/04/19 09:07 100 16 35 03/04/19 09:00 100 03/04/19 09:00 109/70 03/04/19 09:00 95 15 105/60 (75) 99 03/04/19 08:45 96 21 100/60 (73) 03/04/19 08:30 96 21 107/59 (75) 03/04/19 08:15 93 9 107/57 (74) 03/04/19 08:00 Mechanical Ventilator 03/04/19 08:00 92 03/04/19 08:00 107/57 03/04/19 08:00 35 03/04/19 08:00 98.7 91 11 103/59 (74) Intake and Output 03/04/19 03/05/19 19:00 07:00 Intake Total 668.75 ml 841.02 ml Output Total 1340 ml 525 ml Balance -671.25 ml 316.02 ml Free Water 100 ml IV Total 168.75 ml 181.02 ml Tube Feeding 400 ml 600 ml Other 60 ml Output Urine Total 1140 ml 445 ml Stool Total 200 ml 80 ml Laboratory Tests 03/05/19 03:30: White Blood Count 12.8H, Red Blood Count 2.94L, Hemoglobin 9.4L, Hematocrit 28.9L, Mean Corpuscular Volume 98, Mean Corpuscular Hemoglobin 32.1H, Mean Corpuscular Hemoglobin Concent 32.6, Red Cell Distribution Width 18.2H, Platelet Count 75L, Mean Platelet Volume 8.4, Neutrophils (%) (Auto) , Lymphocytes (%) (Auto) , Monocytes (%) (Auto) , Eosinophils (%) (Auto) , Basophils (%) (Auto) , Neutrophils % (Manual) [Pending], Lymphocytes % (Manual) [Pending], Platelet Estimate [Pending], Platelet Morphology [Pending], Erythrocyte Sedimentation Rate 90H, Prothrombin Time 11.4, Prothromb Time International Ratio 1.1, Activated Partial Thromboplast Time 36H, Sodium Level 145, Potassium Level 3.7, Chloride Level 112H, Carbon Dioxide Level 23, Anion Gap 10, Blood Urea Nitrogen 32H, Creatinine 0.9, Estimat Glomerular Filtration Rate , Glucose Level 149H, Calcium Level 7.7L, Total Bilirubin 2.3H, Direct Bilirubin 1.7H, Aspartate Amino Transf (AST/SGOT) 85H, Alanine Aminotransferase (ALT/SGPT) 51, Alkaline Phosphatase 212H, Total Protein 5.3L, Albumin 1.5L, Globulin 3.8, Albumin/Globulin Ratio 0.4L, Amylase Level 145H, Lipase 862H, Digoxin Level 1.5 Height (Feet): 5 Height (Inches): 6.00 Weight (Pounds): 155 Objective General Appearance: WD/WN, confused. more responsive, orally intubated Neck: supple Cardiovascular: irregularly irregular Respiratory/Chest: chest wall non-tender, lungs clear, normal breath sounds, no respiratory distress Abdomen: normal bowel sounds, non tender, soft, no organomegaly Edema: no edema noted Arm (L), no edema noted Arm (R), no edema noted Leg (L), no edema noted Leg (R), no edema noted Pedal (L), no edema noted Pedal (R), no edema noted Generalized Neurologic: disoriented Mitchel Reis MD Mar 05, 2019 08:01
--- NOTE | 2019-03-05 08:31 | NUR ---
NURSE NOTES: Received orders to discontinue heparin drip and nitro drip. Received orders for nitro paste 1 inch q6hrs per Dr. Mena. Read back given and verified. Patient is to be NPO after breakfast. Addendum: 03/05/19 at 0851 by KATIE GALDAMEZ RN Wrong patient
[2019-03-05] MEDS ORDERED: Nitroglycerin 2% oint pkt TOPIC SCH (08:45)
[2019-03-05] MEDS: Pantoprazole Inj IVP SCH ×2 (09:04→20:26)
[2019-03-05] MEDS: Digoxin 0.125mg tab NG SCH (09:04)
[2019-03-05] MEDS: Hydrocortisone 100mg Inj IV SCH ×2 (09:04→17:01)
[2019-03-05] MEDS: Midodrine 10mg tab NG SCH ×3 (09:04→17:00)
[2019-03-05] MEDS: Spironolactone 25mg tab GT SCH (09:05)
--- NOTE | 2019-03-05 09:20 | NUR ---
NURSE NOTES: Patient failed weaning this morning. Pt placed on CPAP/PS 8, able to pull in 500ml TV but RSBI over 100 and NIF -12. Patient placed back on AC mode after 5 minutes. Restarted TF.
--- NOTE | 2019-03-05 09:34 | Infectious Diseases Prog Note ---
Assessment/Plan Assessment/Plan A 1. pneumonia treated 2. fungal UTI 3.Acute renal failure 4. septic shock 5. CHF, systolic 6. dementia 7. Hypoxic respiratory failure 8. 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 Portal hypertension 12. 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 continue Flagyl Subjective ROS Limited/Unobtainable: Yes Constitutional: Denies: fever Respiratory: Reports: other - on weaning process Neurologic: Reports: other - on restraint Allergies: Coded Allergies: No Known Allergies (Unverified , 02/19/19) Objective Vital Signs Last 24 Hour Vital Signs Date Time Temp Pulse Resp B/P (MAP) Pulse Ox O2 Delivery O2 Flow Rate FiO2 03/05/19 09:04 102 03/05/19 08:00 35 03/05/19 07:25 96 18 100 Mechanical Ventilator 35 96 18 35 03/05/19 07:00 100 16 98/56 (70) 99 03/05/19 07:00 98/56 03/05/19 06:30 104 17 106/63 (77) 100 03/05/19 06:00 102/66 03/05/19 06:00 112 17 102/66 (78) 100 03/05/19 05:30 102 20 98/62 (74) 100 03/05/19 05:00 100 16 119/57 (77) 100 03/05/19 05:00 100 16 119/57 (77) 100 03/05/19 05:00 119/57 03/05/19 05:00 95 18 35 03/05/19 04:30 106 16 97/82 (87) 100 03/05/19 04:15 103 17 105/68 (80) 100 03/05/19 04:00 98.2 107 16 116/59 (78) 100 03/05/19 04:00 35 03/05/19 04:00 116/59 03/05/19 04:00 Mechanical Ventilator 03/05/19 03:30 107 21 108/80 (89) 100 03/05/19 03:15 109 18 118/67 (84) 100 03/05/19 03:06 116 03/05/19 03:00 110 20 114/57 (76) 100 03/05/19 03:00 114/57 03/05/19 02:36 96 19 35 03/05/19 02:30 65/33 11/25/19 02:30 102 19 65/33 (44) 91 03/05/19 02:15 102 22 109/64 (79) 100 03/05/19 02:00 87/59 03/05/19 02:00 102 21 87/59 (68) 100 03/05/19 01:45 100 19 101/63 (76) 100 03/05/19 01:30 98 17 101/58 (72) 100 03/05/19 01:14 92 18 35 03/05/19 01:00 102/63 03/05/19 01:00 96 16 102/63 (76) 100 03/05/19 00:30 94 16 109/68 (82) 100 03/05/19 00:00 Mechanical Ventilator 03/05/19 00:00 127/58 03/05/19 00:00 98.6 91 14 127/58 (81) 100 03/05/19 00:00 35 03/04/19 23:30 94 14 103/59 (74) 93 03/04/19 23:26 97 20 35 03/04/19 23:03 95 03/04/19 23:00 93 16 70/32 (45) 100 03/04/19 23:00 70/32 03/04/19 22:45 90 17 100/53 (69) 100 03/04/19 22:36 93 17 85/51 (62) 98 03/04/19 22:30 92 16 82/52 (62) 100 03/04/19 22:00 92/48 03/04/19 22:00 92 15 92/48 (63) 100 03/04/19 21:37 94/56 03/04/19 21:30 91 16 94/56 (69) 03/04/19 21:15 92 16 95/48 (64) 100 03/04/19 21:01 95 03/04/19 21:00 92 16 90/56 (67) 100 03/04/19 21:00 90/56 03/04/19 20:47 90 17 35 03/04/19 20:30 88 16 102/56 (71) 100 03/04/19 20:00 86/55 03/04/19 20:00 97.6 94 19 86/55 (65) 98 03/04/19 20:00 35 03/04/19 20:00 Mechanical Ventilator 03/04/19 19:30 91 17 91/52 (65) 100 03/04/19 19:09 89 16 99 Mechanical Ventilator 35 90 16 35 03/04/19 19:00 83 18 96/58 (71) 100 03/04/19 19:00 96/58 03/04/19 18:00 87 18 97/56 (70) 100 03/04/19 18:00 97/58 03/04/19 17:24 88 20 35 03/04/19 17:00 90 18 91/62 (72) 100 03/04/19 17:00 91/62 03/04/19 16:30 95 17 119/92 (101) 100 03/04/19 16:00 98.9 94 19 129/91 (104) 98 03/04/19 16:00 35 03/04/19 16:00 Mechanical Ventilator 03/04/19 16:00 129/91 03/04/19 16:00 95 03/04/19 15:29 95 17 35 03/04/19 15:00 87/66 03/04/19 15:00 97 19 97/68 (78) 100 03/04/19 14:00 101 19 92/45 (61) 100 03/04/19 14:00 92/48 03/04/19 13:06 91 16 100 Mechanical Ventilator 35 97 16 35 03/04/19 13:00 93 19 108/67 (81) 100 03/04/19 13:00 91/42 03/04/19 12:30 94 19 103/66 (78) 100 03/04/19 12:00 35 03/04/19 12:00 92 03/04/19 12:00 Mechanical Ventilator 03/04/19 12:00 111/78 03/04/19 12:00 98.6 91 10 111/78 (89) 03/04/19 11:30 96 18 100/84 (89) 100 03/04/19 11:00 92 17 106/59 (75) 100 03/04/19 11:00 100/56 03/04/19 10:49 103 21 35 03/04/19 10:00 98/52 03/04/19 10:00 100 18 135/66 (89) 100 Height (Feet): 5 Height (Inches): 6.00 Weight (Pounds): 155 HEENT: mucous membranes moist, other - orally intubated Respiratory/Chest: lungs clear, other - on ventilator Cardiovascular: tachycardia, other - left arm PICC line Abdomen: soft, non tender Extremities: other - edema of hands Neurologic/Psychiatric: alert, responsive Laboratory Tests Test 03/05/19 03:30 03/05/19 08:40 White Blood Count 12.8 K/UL (4.8-10.8) H Red Blood Count 2.94 M/UL (4.20-5.40) L Hemoglobin 9.4 G/DL (12.0-16.0) L Hematocrit 28.9 % (37.0-47.0) L Mean Corpuscular Volume 98 FL (80-99) Mean Corpuscular Hemoglobin 32.1 PG (27.0-31.0) H Mean Corpuscular Hemoglobin Concent 32.6 G/DL (32.0-36.0) Red Cell Distribution Width 18.2 % (11.6-14.8) H Platelet Count 75 K/UL (150-450) L Mean Platelet Volume 8.4 FL (6.5-10.1) Neutrophils (%) (Auto) % (45.0-75.0) Lymphocytes (%) (Auto) % (20.0-45.0) Monocytes (%) (Auto) % (1.0-10.0) Eosinophils (%) (Auto) % (0.0-3.0) Basophils (%) (Auto) % (0.0-2.0) Neutrophils % (Manual) Pending Lymphocytes % (Manual) Pending Platelet Estimate Pending Platelet Morphology Pending Erythrocyte Sedimentation Rate 90 MM/HR (0-30) H Prothrombin Time 11.4 SEC (9.30-11.50) Prothromb Time International Ratio 1.1 (0.9-1.1) Activated Partial Thromboplast Time 36 SEC (23-33) H Sodium Level 145 MMOL/L (136-145) Pending Potassium Level 3.7 MMOL/L (3.5-5.1) Pending Chloride Level 112 MMOL/L (98-107) H Pending Carbon Dioxide Level 23 MMOL/L (21-32) Pending Anion Gap 10 mmol/L (5-15) Blood Urea Nitrogen 32 mg/dL (7-18) H Pending Creatinine 0.9 MG/DL (0.55-1.30) Pending Estimat Glomerular Filtration Rate mL/min (>60) Pending Glucose Level 149 MG/DL (74-106) H Pending Calcium Level 7.7 MG/DL (8.5-10.1) L Pending Total Bilirubin 2.3 MG/DL (0.2-1.0) H Pending Direct Bilirubin 1.7 MG/DL (0.0-0.3) H Aspartate Amino Transf (AST/SGOT) 85 U/L (15-37) H Pending Alanine Aminotransferase (ALT/SGPT) 51 U/L (12-78) Pending Alkaline Phosphatase 212 U/L (46-116) H Pending Total Protein 5.3 G/DL (6.4-8.2) L Pending Albumin 1.5 G/DL (3.4-5.0) L Pending Globulin 3.8 g/dL Pending Albumin/Globulin Ratio 0.4 (1.0-2.7) L Amylase Level 145 U/L (25-115) H Lipase 862 U/L (73-393) H Digoxin Level 1.5 NG/ML (0.9-2.0) Current Medications Medications (Trade) Dose Ordered Sig/Pam Route PRN Reason Start Time Stop Time Status Last Admin Dose Admin Acetaminophen (Tylenol) 650 mg Q4H PRN GT Mild Pain/Temp > 100.5 03/04/19 11:00 03/21/19 17:14 Acetylcysteine (Mucomyst) 100 mg TIDRT HHN 03/04/19 09:15 04/03/19 09:14 03/05/19 07:31 Albuterol/ Ipratropium (Albuterol/ Ipratropium) 3 ml Q4H PRN HHN Shortness of Breath 03/04/19 09:45 03/09/19 09:44 03/05/19 07:31 Chlorhexidine Gluconate (Dayna-Hex 2%) 1 applic DAILY@1999 TOPIC 02/20/19 20:00 03/22/19 19:59 03/04/19 19:49 Digoxin (Lanoxin) 0.125 mg DAILY NG 03/04/19 09:00 04/03/19 08:59 03/05/19 09:04 Hydrocortisone (Solu-CORTEF) 50 mg Q8H IV 03/05/19 09:00 04/04/19 08:59 03/05/19 09:04 Metronidazole (Flagyl) 500 mg Q8HR GT 03/04/19 14:00 03/11/19 13:59 03/05/19 05:33 Midodrine (Pro-Amatine) 10 mg THREE TIMES A DAY NG 03/05/19 09:00 04/04/19 08:59 03/05/19 09:04 Norepinephrine Bitartrate 8 mg/ Dextrose 250 ml @ 0 mls/hr Q24H IV 03/03/19 08:30 04/02/19 08:29 03/04/19 21:37 Pantoprazole (Protonix) 40 mg Q12HR IVP 02/20/19 21:00 03/21/19 17:59 03/05/19 09:04 Spironolactone (Aldactone) 25 mg DAILY GT 03/05/19 09:00 04/03/19 10:29 03/05/19 09:05 Neville Cunningham MD Mar 05, 2019 09:33
[2019-03-05 09:39] LABS: ALANINE AMINOTRANSFERASE 58 U/L (12-78); ALBUMIN 1.5 G/DL (3.4-5.0); ALBUMIN/GLOBULIN RATIO 0.4 (1.0-2.7); ALKALINE PHOSPHATASE 205 U/L (46-116); ANION GAP 3 mmol/L (5-15); ASPARTATE AMINO TRANSFERASE 79 U/L (15-37); BILIRUBIN,TOTAL 2.4 MG/DL (0.2-1.0); BLOOD UREA NITROGEN 34 mg/dL (7-18); CALCIUM 7.5 MG/DL (8.5-10.1); CARBON DIOXIDE 28 MMOL/L (21-32); CHLORIDE 112 MMOL/L (98-107); CREATININE 0.9 MG/DL (0.55-1.30); POTASSIUM 3.6 MMOL/L (3.5-5.1); SODIUM 142 MMOL/L (136-145)
--- NOTE | 2019-03-05 09:41 | NUR ---
RESPIRATORY NOTE: Received Pt on 7.0 @ 22 at the lip on vent setting of AC 16 VT 500 FIO2 35% PEEP 5. Pt is awake and alert sating 98%. Pt is Rhonchi bilaterally. Sx small to moderate yellow fraser thick secretion. Pt failed weaning on CPAP PS 8. Pt RSBI fluctated from 90s - 140. Patient NIF was -7.3 at best. Spontaneous volumes ranged in the 300s. Pt sat decreased to low 90s and pt was switched back to AC 16 VT 500 FIO2 35% PEEP 5. Alarms are on and audible. Ambu bag at bedside. Will continue to monitor.
[2019-03-05 09:49] LABS: BILIRUBIN,DIRECT 1.8 MG/DL (0.0-0.3)
--- NOTE | 2019-03-05 11:50 | NUR ---
NURSE NOTES: Dr. Mason making rounds at bedside. Received orders to titrate levophed to keep SBP >90. Decreased levophed to 8mcg/min.
--- NOTE | 2019-03-05 11:51 | NUR ---
CASE MANAGEMENT:REVIEW 03/05/19 SI: SEPTIC SHOCK. RENAL FAILURE AFIB W/RVR. CARDIOMYOPATHY. INTUBATED 98.9 101//16 98/69 100% ON VENT SUPPORT WBC+12.8 H/H-9.4/28.9 PLT-75 IS: LEVOPHED GTT LEVAQUIN NG QD K-DUR NG BID IV PROTONIX Q12 digoxin ng qd : ICU STATUS DCP: FROM [facility] CARE PLAN: BP SUPPORT WEAN FROM VENT
--- NOTE | 2019-03-05 12:31 | Nephrology Progress Note ---
Assessment/Plan Problem List: (1) Acute respiratory failure (2) Septic shock (3) Renal failure (4) Atrial fibrillation with rapid ventricular response (5) Cardiomyopathy Assessment Renal failure - ? Acute on Chronic, Partly dehydration Septic Shock UTI AT Fib with FVR h/o DM, proteinuria , HypoAlbuminemia Plan Kayexelaate as needed dig IV one dose given previously Midodrine K and Mag supplement as needed pulm support per consultants previously: stop NS intubated On 2 pressors BP remains low Poor prognosis - remains full code for now slow Hydrate 2D echo EjFx 40% antibiotics monitor renal parameters avoid nephrotoxics per orders Subjective ROS Limited/Unobtainable: Yes Objective Objective Last 24 Hour Vital Signs Date Time Temp Pulse Resp B/P (MAP) Pulse Ox O2 Delivery O2 Flow Rate FiO2 03/05/19 12:00 96 15 111/56 (74) 99 03/05/19 11:47 96/64 03/05/19 11:30 100/51 03/05/19 11:15 105 16 106/54 (71) 99 03/05/19 11:15 106/54 03/05/19 11:00 104 16 98 03/05/19 11:00 127/79 03/05/19 11:00 104 16 127/79 (95) 98 03/05/19 10:58 123 20 35 03/05/19 10:00 121/66 03/05/19 10:00 103 16 121/66 (84) 100 03/05/19 09:40 98 03/05/19 09:38 96 18 35 03/05/19 09:30 102 28 108/58 (75) 97 03/05/19 09:28 97 30 35 35 03/05/19 09:04 102 03/05/19 09:00 102 19 102/71 (81) 99 03/05/19 09:00 102/71 03/05/19 08:30 103 19 107/54 (71) 100 03/05/19 08:00 103 16 101/62 (75) 99 03/05/19 08:00 107 03/05/19 08:00 Mechanical Ventilator 03/05/19 08:00 35 03/05/19 08:00 101/62 03/05/19 08:00 105 03/05/19 07:30 98.9 101 16 98/69 (79) 100 03/05/19 07:25 96 18 100 Mechanical Ventilator 35 96 18 35 03/05/19 07:00 100 16 98/56 (70) 99 03/05/19 07:00 98/56 03/05/19 06:30 104 17 106/63 (77) 100 03/05/19 06:00 102/66 03/05/19 06:00 112 17 102/66 (78) 100 03/05/19 05:30 102 20 98/62 (74) 100 03/05/19 05:00 100 16 119/57 (77) 100 03/05/19 05:00 100 16 119/57 (77) 100 03/05/19 05:00 119/57 03/05/19 05:00 95 18 35 03/05/19 04:30 106 16 97/82 (87) 100 03/05/19 04:30 106 16 97/82 (87) 03/05/19 04:15 103 17 105/68 (80) 03/05/19 04:15 103 17 105/68 (80) 100 03/05/19 04:00 107 16 116/59 (78) 03/05/19 04:00 98.2 107 16 116/59 (78) 100 03/05/19 04:00 35 03/05/19 04:00 116/59 03/05/19 04:00 Mechanical Ventilator 03/05/19 03:45 108 16 106/63 (77) 99 03/05/19 03:30 107 21 108/80 (89) 03/05/19 03:30 107 21 108/80 (89) 100 03/05/19 03:15 109 18 118/67 (84) 03/05/19 03:15 109 18 118/67 (84) 100 03/05/19 03:06 116 03/05/19 03:00 110 20 114/57 (76) 100 03/05/19 03:00 110 20 114/57 (76) 03/05/19 03:00 114/57 03/05/19 02:36 96 19 35 03/05/19 02:30 65/33 03/05/19 02:30 102 19 65/33 (44) 91 03/05/19 02:30 102 19 65/33 (44) 91 03/05/19 02:15 102 22 109/64 (79) 03/05/19 02:15 102 22 109/64 (79) 100 03/05/19 02:00 102 21 87/59 (68) 03/05/19 02:00 87/59 03/05/19 02:00 102 21 87/59 (68) 100 03/05/19 01:45 100 19 101/63 (76) 100 03/05/19 01:45 100 19 101/63 (76) 100 03/05/19 01:30 98 17 101/58 (72) 100 03/05/19 01:30 98 17 101/58 (72) 100 03/05/19 01:15 101 17 90/57 (68) 99 03/05/19 01:14 92 18 35 03/05/19 01:00 96 16 102/63 (76) 100 03/05/19 01:00 102/63 03/05/19 01:00 96 16 102/63 (76) 100 03/05/19 00:48 95 25 85/52 (63) 03/05/19 00:45 97 12 87/63 (71) 03/05/19 00:30 94 16 109/68 (82) 03/05/19 00:30 94 16 109/68 (82) 100 03/05/19 00:15 98 23 92/69 (77) 96 03/05/19 00:00 Mechanical Ventilator 03/05/19 00:00 127/58 03/05/19 00:00 91 14 127/58 (81) 03/05/19 00:00 98.6 91 14 127/58 (81) 100 03/05/19 00:00 35 03/04/19 23:30 94 14 103/59 (74) 93 03/04/19 23:26 97 20 35 03/04/19 23:03 95 03/04/19 23:00 93 16 70/32 (45) 100 03/04/19 23:00 70/32 03/04/19 22:45 90 17 100/53 (69) 100 03/04/19 22:36 93 17 85/51 (62) 98 03/04/19 22:30 92 16 82/52 (62) 100 03/04/19 22:00 92/48 03/04/19 22:00 92 15 92/48 (63) 100 03/04/19 21:37 94/56 03/04/19 21:30 91 16 94/56 (69) 03/04/19 21:15 92 16 95/48 (64) 100 03/04/19 21:01 95 03/04/19 21:00 92 16 90/56 (67) 100 03/04/19 21:00 90/56 03/04/19 20:47 90 17 35 03/04/19 20:30 88 16 102/56 (71) 100 03/04/19 20:00 86/55 03/04/19 20:00 97.6 94 19 86/55 (65) 98 03/04/19 20:00 35 03/04/19 20:00 Mechanical Ventilator 03/04/19 19:30 91 17 91/52 (65) 100 03/04/19 19:09 89 16 99 Mechanical Ventilator 35 90 16 35 03/04/19 19:00 83 18 96/58 (71) 100 03/04/19 19:00 96/58 03/04/19 18:00 87 18 97/56 (70) 100 03/04/19 18:00 97/58 03/04/19 17:24 88 20 35 03/04/19 17:00 90 18 91/62 (72) 100 03/04/19 17:00 91/62 03/04/19 16:30 95 17 119/92 (101) 100 03/04/19 16:00 98.9 94 19 129/91 (104) 98 03/04/19 16:00 35 03/04/19 16:00 Mechanical Ventilator 03/04/19 16:00 129/91 03/04/19 16:00 95 03/04/19 15:29 95 17 35 03/04/19 15:00 87/66 03/04/19 15:00 97 19 97/68 (78) 100 03/04/19 14:00 101 19 92/45 (61) 100 03/04/19 14:00 92/48 03/04/19 13:06 91 16 100 Mechanical Ventilator 35 97 16 35 03/04/19 13:00 93 19 108/67 (81) 100 03/04/19 13:00 91/42 03/04/19 12:30 94 19 103/66 (78) 100 Intake and Output 03/04/19 03/05/19 18:59 06:59 Intake Total 622.50 ml 833.52 ml Output Total 1270 ml 610 ml Balance -647.50 ml 223.52 ml Free Water 100 ml IV Total 172.50 ml 173.52 ml Tube Feeding 350 ml 600 ml Other 60 ml Output Urine Total 1070 ml 530 ml Stool Total 200 ml 80 ml Laboratory Tests 03/05/19 03:30: White Blood Count 12.8H, Red Blood Count 2.94L, Hemoglobin 9.4L, Hematocrit 28.9L, Mean Corpuscular Volume 98, Mean Corpuscular Hemoglobin 32.1H, Mean Corpuscular Hemoglobin Concent 32.6, Red Cell Distribution Width 18.2H, Platelet Count 75L, Mean Platelet Volume 8.4, Neutrophils (%) (Auto) , Lymphocytes (%) (Auto) , Monocytes (%) (Auto) , Eosinophils (%) (Auto) , Basophils (%) (Auto) , Differential Total Cells Counted 100, Neutrophils % ( Manual) 90H, Lymphocytes % (Manual) 5L, Monocytes % (Manual) 5, Eosinophils % ( Manual) 0, Basophils % (Manual) 0, Band Neutrophils 0, Platelet Estimate DecreasedL, Platelet Morphology Normal, Polychromasia 1+, Hypochromasia 1+, Anisocytosis 1+, Macrocytosis 1+, Erythrocyte Sedimentation Rate 90H, Prothrombin Time 11.4, Prothromb Time International Ratio 1.1, Activated Partial Thromboplast Time 36H, Sodium Level 145, Potassium Level 3.7, Chloride Level 112H, Carbon Dioxide Level 23, Anion Gap 10, Blood Urea Nitrogen 32H, Creatinine 0.9, Estimat Glomerular Filtration Rate , Glucose Level 149H, Calcium Level 7.7L, Total Bilirubin 2.3H, Direct Bilirubin 1.7H, Aspartate Amino Transf (AST/SGOT) 85H, Alanine Aminotransferase (ALT/SGPT) 51, Alkaline Phosphatase 212H, Total Protein 5.3L, Albumin 1.5L, Globulin 3.8, Albumin/ Globulin Ratio 0.4L, Amylase Level 145H, Lipase 862H, Digoxin Level 1.5 03/05/19 08:40: Sodium Level 142, Potassium Level 3.6, Chloride Level 112H, Carbon Dioxide Level 28, Anion Gap 3L, Blood Urea Nitrogen 34H, Creatinine 0.9, Estimat Glomerular Filtration Rate , Glucose Level 155H, Calcium Level 7.5L, Total Bilirubin 2.4H, Direct Bilirubin 1.8H, Aspartate Amino Transf (AST/SGOT) 79H, Alanine Aminotransferase (ALT/SGPT) 58, Alkaline Phosphatase 205H, Total Protein 4.9L, Albumin 1.5L, Globulin 3.4, Albumin/Globulin Ratio 0.4L Height (Feet): 5 Height (Inches): 6.00 Weight (Pounds): 155 General Appearance: mild distress EENT: other - intubated- vented Cardiovascular: tachycardia Respiratory/Chest: decreased breath sounds Abdomen: soft, distended Objective no change Jt Louis MD Mar 05, 2019 12:31
--- NOTE | 2019-03-05 13:00 | NUR ---
NURSE NOTES: Titrated Levophed to 4mcg/min, SBP 104/56, MAP 65.
--- NOTE | 2019-03-05 15:00 | NUR ---
NURSE NOTES: Pt repositioned, perineal and oral care provided. Pt in no acute distress. Bed in lowest position, alar on, side rails up x2 , will continue to monitor.
--- NOTE | 2019-03-05 17:00 | NUR ---
NURSE NOTES: Oral care provided, pt repositioned. Midodrine and solumedrol administered per eMar. Pt is awake and in no acute distress. Will continue to monitor.
--- NOTE | 2019-03-05 17:30 | Progress Note ---
DATE: 03/05/2019 CARDIOLOGY PROGRESS NOTE SUBJECTIVE: Remains on ventilator support. Low blood pressure persists. Pressor support needed as well as midodrine. Still in atrial fibrillation with increased ventricular rate. Digoxin was held yesterday due to an elevated drug level. OBJECTIVE: HEENT: Orally intubated. Thin secretions. LUNGS: Bilateral rhonchi. HEART: Irregularly irregular rhythm. Normal S1, S2. ABDOMEN: Soft. Moderate ascites. EXTREMITIES: 1+ dependent edema. LABORATORY DATA: Digoxin level 1.5. Sodium 142, potassium 3.6, bicarb 28, BUN 34, creatinine 0.9. Albumin 1.5. White count 12.8, hemoglobin 9.4. IMPRESSION: 1. Sepsis. 2. Respiratory failure. 3. Shock. 4. Adrenal insufficiency. 5. Paroxysmal atrial fibrillation with rapid ventricular response. 6. Anemia, status post transfusion. 7. Severe protein-calorie malnutrition. 8. Cirrhosis with ascites. 9. Pancreatitis. PLAN: 1. Antimicrobials. 2. Ventilator support. 3. Respiratory hygiene. 4. Weaning efforts. 5. Replace electrolytes as needed. 6. DVT and stress ulcer prophylaxes. Jimmie Mason M.D. DR: JOELLEN JOB#: [id number] CC:
--- NOTE | 2019-03-05 18:53 | Surgery Progress Note ---
Surgery Progress Note Subjective Additional Comments no acute events weaning awake still requiring vent support and support Objective Last 24 Hour Vital Signs Date Time Temp Pulse Resp B/P (MAP) Pulse Ox O2 Delivery O2 Flow Rate FiO2 03/05/19 18:45 98 27 103/52 (69) 99 03/05/19 18:15 90 24 94/48 (63) 99 03/05/19 18:00 92/54 03/05/19 17:45 92 20 85/59 (68) 99 03/05/19 17:30 96 28 91/56 (68) 99 03/05/19 17:15 94 28 93/46 (62) 98 03/05/19 17:00 92 22 84/42 (56) 99 03/05/19 17:00 84/42 03/05/19 16:51 100 20 35 03/05/19 16:45 95 18 85/58 (67) 100 03/05/19 16:30 94 26 100/48 (65) 100 03/05/19 16:15 96 23 85/57 (66) 100 03/05/19 16:00 Mechanical Ventilator 03/05/19 16:00 97 03/05/19 16:00 87/43 03/05/19 16:00 98.7 96 21 87/43 (58) 99 03/05/19 15:45 90 16 87/48 (61) 99 03/05/19 15:30 96 19 89/47 (61) 99 03/05/19 15:18 91 16 35 03/05/19 15:15 92 24 94/50 (65) 100 03/05/19 15:00 95 25 90/46 (61) 100 03/05/19 15:00 90/46 03/05/19 14:45 95 22 86/49 (61) 98 03/05/19 14:30 94 25 97/56 (70) 99 03/05/19 14:15 102 22 96/45 (62) 98 03/05/19 14:00 93 16 89/50 (63) 98 03/05/19 14:00 89/50 03/05/19 13:45 98 17 75/58 (64) 98 03/05/19 13:30 97 18 104/56 (72) 98 03/05/19 13:15 97 19 97/54 (68) 99 03/05/19 13:12 95 16 99 Mechanical Ventilator 35 89 17 35 03/05/19 13:00 95 16 93/53 (66) 99 03/05/19 13:00 35 03/05/19 13:00 93/53 03/05/19 12:45 98 16 93/53 (66) 98 03/05/19 12:30 92/57 03/05/19 12:30 98 20 92/57 (69) 97 03/05/19 12:15 99 19 109/64 (79) 99 03/05/19 12:00 Mechanical Ventilator 03/05/19 12:00 35 03/05/19 12:00 98.0 96 15 111/56 (74) 99 03/05/19 12:00 111/56 03/05/19 12:00 100 03/05/19 11:47 96/64 03/05/19 11:45 89/56 03/05/19 11:45 100 18 89/56 (67) 99 03/05/19 11:30 101 17 100/51 (67) 98 03/05/19 11:30 100/51 03/05/19 11:15 105 16 106/54 (71) 99 03/05/19 11:15 106/54 03/05/19 11:00 104 16 98 03/05/19 11:00 127/79 03/05/19 11:00 104 16 127/79 (95) 98 03/05/19 10:58 123 20 35 03/05/19 10:00 121/66 03/05/19 10:00 103 16 121/66 (84) 100 03/05/19 09:40 98 03/05/19 09:38 96 18 35 03/05/19 09:30 102 28 108/58 (75) 97 03/05/19 09:28 97 30 35 35 03/05/19 09:04 102 03/05/19 09:00 102 19 102/71 (81) 99 03/05/19 09:00 102/71 03/05/19 08:30 103 19 107/54 (71) 100 03/05/19 08:00 103 16 101/62 (75) 99 03/05/19 08:00 107 03/05/19 08:00 Mechanical Ventilator 03/05/19 08:00 35 03/05/19 08:00 101/62 03/05/19 08:00 105 03/05/19 07:30 98.9 101 16 98/69 (79) 100 03/05/19 07:25 96 18 100 Mechanical Ventilator 35 96 18 35 03/05/19 07:00 100 16 98/56 (70) 99 03/05/19 07:00 98/56 03/05/19 06:30 104 17 106/63 (77) 100 03/05/19 06:00 102/66 03/05/19 06:00 112 17 102/66 (78) 100 03/05/19 05:30 102 20 98/62 (74) 100 03/05/19 05:00 100 16 119/57 (77) 100 03/05/19 05:00 100 16 119/57 (77) 100 03/05/19 05:00 119/57 03/05/19 05:00 95 18 35 03/05/19 04:30 106 16 97/82 (87) 100 03/05/19 04:15 103 17 105/68 (80) 100 03/05/19 04:00 98.2 107 16 116/59 (78) 100 03/05/19 04:00 35 03/05/19 04:00 116/59 03/05/19 04:00 Mechanical Ventilator 03/05/19 03:30 107 21 108/80 (89) 100 03/05/19 03:30 107 21 108/80 (89) 100 03/05/19 03:15 109 18 118/67 (84) 100 03/05/19 03:15 109 18 118/67 (84) 100 03/05/19 03:06 116 03/05/19 03:00 110 20 114/57 (76) 100 03/05/19 03:00 110 20 114/57 (76) 100 03/05/19 03:00 114/57 03/05/19 02:36 96 19 35 03/05/19 02:30 65/33 03/05/19 02:30 102 19 65/33 (44) 91 03/05/19 02:30 102 19 65/33 (44) 91 03/05/19 02:15 102 22 109/64 (79) 100 03/05/19 02:15 102 22 109/64 (79) 100 03/05/19 02:00 87/59 03/05/19 02:00 102 21 87/59 (68) 100 03/05/19 02:00 102 21 87/59 (68) 100 03/05/19 01:45 100 19 101/63 (76) 100 03/05/19 01:45 100 19 101/63 (76) 100 03/05/19 01:30 98 17 101/58 (72) 100 03/05/19 01:30 98 17 101/58 (72) 100 03/05/19 01:14 92 18 35 03/05/19 01:00 102/63 03/05/19 01:00 96 16 102/63 (76) 100 03/05/19 01:00 96 16 102/63 (76) 100 03/05/19 00:30 94 16 109/68 (82) 100 03/05/19 00:00 Mechanical Ventilator 03/05/19 00:00 127/58 03/05/19 00:00 98.6 91 14 127/58 (81) 100 03/05/19 00:00 35 03/04/19 23:30 94 14 103/59 (74) 93 03/04/19 23:26 97 20 35 03/04/19 23:03 95 03/04/19 23:00 93 16 70/32 (45) 100 03/04/19 23:00 70/32 03/04/19 22:45 90 17 100/53 (69) 100 03/04/19 22:36 93 17 85/51 (62) 98 03/04/19 22:30 92 16 82/52 (62) 100 03/04/19 22:00 92/48 03/04/19 22:00 92 15 92/48 (63) 100 03/04/19 21:37 94/56 03/04/19 21:30 91 16 94/56 (69) 03/04/19 21:15 92 16 95/48 (64) 100 03/04/19 21:01 95 03/04/19 21:00 92 16 90/56 (67) 100 03/04/19 21:00 90/56 03/04/19 20:47 90 17 35 03/04/19 20:30 88 16 102/56 (71) 100 03/04/19 20:00 86/55 03/04/19 20:00 97.6 94 19 86/55 (65) 98 03/04/19 20:00 35 03/04/19 20:00 Mechanical Ventilator 03/04/19 19:30 91 17 91/52 (65) 100 03/04/19 19:09 89 16 99 Mechanical Ventilator 35 90 16 35 03/04/19 19:00 83 18 96/58 (71) 100 03/04/19 19:00 96/58 I&O Intake and Output 03/04/19 03/05/19 19:00 07:00 Intake Total 668.75 ml 841.02 ml Output Total 1340 ml 525 ml Balance -671.25 ml 316.02 ml Free Water 100 ml IV Total 168.75 ml 181.02 ml Tube Feeding 400 ml 600 ml Other 60 ml Output Urine Total 1140 ml 445 ml Stool Total 200 ml 80 ml Dressing: other Wound: other Drains: other Cardiovascular: RSR Respiratory: decreased breath sounds Abdomen: soft, present bowel sounds Extremities: no cyanosis, other Laboratory Tests Test 03/05/19 03:30 03/05/19 08:40 White Blood Count 12.8 K/UL (4.8-10.8) H Red Blood Count 2.94 M/UL (4.20-5.40) L Hemoglobin 9.4 G/DL (12.0-16.0) L Hematocrit 28.9 % (37.0-47.0) L Mean Corpuscular Volume 98 FL (80-99) Mean Corpuscular Hemoglobin 32.1 PG (27.0-31.0) H Mean Corpuscular Hemoglobin Concent 32.6 G/DL (32.0-36.0) Red Cell Distribution Width 18.2 % (11.6-14.8) H Platelet Count 75 K/UL (150-450) L Mean Platelet Volume 8.4 FL (6.5-10.1) Neutrophils (%) (Auto) % (45.0-75.0) Lymphocytes (%) (Auto) % (20.0-45.0) Monocytes (%) (Auto) % (1.0-10.0) Eosinophils (%) (Auto) % (0.0-3.0) Basophils (%) (Auto) % (0.0-2.0) Differential Total Cells Counted 100 Neutrophils % (Manual) 90 % (45-75) H Lymphocytes % (Manual) 5 % (20-45) L Monocytes % (Manual) 5 % (1-10) Eosinophils % (Manual) 0 % (0-3) Basophils % (Manual) 0 % (0-2) Band Neutrophils 0 % (0-8) Platelet Estimate Decreased L Platelet Morphology Normal Polychromasia 1+ Hypochromasia 1+ Anisocytosis 1+ Macrocytosis 1+ Erythrocyte Sedimentation Rate 90 MM/HR (0-30) H Prothrombin Time 11.4 SEC (9.30-11.50) Prothromb Time International Ratio 1.1 (0.9-1.1) Activated Partial Thromboplast Time 36 SEC (23-33) H Sodium Level 145 MMOL/L (136-145) 142 MMOL/L (136-145) Potassium Level 3.7 MMOL/L (3.5-5.1) 3.6 MMOL/L (3.5-5.1) Chloride Level 112 MMOL/L (98-107) H 112 MMOL/L (98-107) H Carbon Dioxide Level 23 MMOL/L (21-32) 28 MMOL/L (21-32) Anion Gap 10 mmol/L (5-15) 3 mmol/L (5-15) L Blood Urea Nitrogen 32 mg/dL (7-18) H 34 mg/dL (7-18) H Creatinine 0.9 MG/DL (0.55-1.30) 0.9 MG/DL (0.55-1.30) Estimat Glomerular Filtration Rate mL/min (>60) mL/min (>60) Glucose Level 149 MG/DL (74-106) H 155 MG/DL (74-106) H Calcium Level 7.7 MG/DL (8.5-10.1) L 7.5 MG/DL (8.5-10.1) L Total Bilirubin 2.3 MG/DL (0.2-1.0) H 2.4 MG/DL (0.2-1.0) H Direct Bilirubin 1.7 MG/DL (0.0-0.3) H 1.8 MG/DL (0.0-0.3) H Aspartate Amino Transf (AST/SGOT) 85 U/L (15-37) H 79 U/L (15-37) H Alanine Aminotransferase (ALT/SGPT) 51 U/L (12-78) 58 U/L (12-78) Alkaline Phosphatase 212 U/L (46-116) H 205 U/L (46-116) H Total Protein 5.3 G/DL (6.4-8.2) L 4.9 G/DL (6.4-8.2) L Albumin 1.5 G/DL (3.4-5.0) L 1.5 G/DL (3.4-5.0) L Globulin 3.8 g/dL 3.4 g/dL Albumin/Globulin Ratio 0.4 (1.0-2.7) L 0.4 (1.0-2.7) L Amylase Level 145 U/L (25-115) H Lipase 862 U/L (73-393) H Digoxin Level 1.5 NG/ML (0.9-2.0) Plan Problems: (1) Septic shock Assessment & Plan: 78-year-old female in septic shock in the intensive care unit on pressors. Leukocytosis, anemia, abnormal labs. Tachycardic. On respiratory support. On examination patient identified to have slowed capillary refill in the distal extremities. Patient furthermore identified to have a weeping wound in the right great toe. Patient is currently very ill and septic and requiring pressors. Unfortunately given her medical condition comorbidities and history there is potential for distal vasoconstriction and potentially even necrosis of the distal aspects but further life-saving measures pressors currently required and necessary and indicated. wound re-evaluated. necrotic epidermal tissue sloth off but underlying tissues with backbleeding. motor noted spont in foot and toes We will continue to monitor extremities and evaluate them. Will wean off pressors as possible. Lactic acidosis improving. Continue IV antibiotics Wean pressors prognosis guarded labs slowly improving now still ill and guarded will discuss trach as she is alert/awake but weaning from vent slow Appreciate ICU care and management We will follow with recommendations (2) Abdominal pain Assessment & Plan: Chronic liver disease/cirrhosis with signs of portal hypertension including moderate ascites and hepatofugal flow in the portal vein. Gallbladder wall edema nonspecific Bilateral pleural effusions. Medical renal disease Findings: There is extensive artifact from the patient's arms limiting evaluation. Oral contrast was given. Gastrostomy tube is noted in good position. There are small bilateral pleural effusions present with adjacent ill-defined parenchymal density either atelectasis or pneumonia. Correlate clinically. Small pericardial effusion is present and there is generalized cardiomegaly present. Hiatal hernia noted. Aorta and coronary artery calcification present. Mild ascites is demonstrated. No compelling evidence for bowel obstruction. There is extensive diverticulosis involving the colon without obvious diverticulitis. Generalized anasarca noted. The appendix is not seen. The kidneys show no obvious hydronephrosis. The right kidney appears atrophic. There is a suggestion of cysts within the right kidney but this is grossly limited in terms of visualization. The gallbladder is demonstrated. The rectum appears low in location suggestive of prolapse and with a moderate degree of fecal retention. IMPRESSION: Limited evaluation due to artifact. Mild to moderate ascites Trace bilateral pleural effusions. Basilar atelectasis and/or infiltrate. Trace pericardial effusion Generalized cardiomegaly. Atherosclerotic vascular disease Extensive diverticulosis of the colon. No definite diverticulitis. Anasarca Gross catheter Query rectal prolapse reviewed US again lft's cont to rise likely liver decompensation trend (3) Severe sepsis Tristan Heller Mar 05, 2019 18:53
--- NOTE | 2019-03-05 19:12 | NUR ---
HAND-OFF: Report given to ANDREINA Alcocer. Pt in stable condition.
--- NOTE | 2019-03-05 19:30 | NUR ---
NURSE NOTES: Received patient from [facility]. Patient is AAOX1. Patient is awake and alert and able to move head to stimulations. Patient is orally intubated ETT 7/22cm at lower lip line. With vent settings of AC 16/500tv, 35% FiO2 and peep of 5. SpO2 is 100%. Patient has G-tube infusing Vital AF at 50ml/hr. Rectal tube noted with liquid brown diarrhea. KELVIN PICC infusing Levophed at 2mcg/min and TKO NS. SCD's on. Multiple wounds noted, see WCP. P200 mattress noted. Patients BP is 96/57, 98 afib rhythm, SpO2 is 98%, RR 18, 98.1F. Patient has pitting edema on upper and lower extremities with some minor fluid seeping on the upper extremities. The abdomen in mildly tender and round. No acute distress at this time. Safety measures are in place. Will continue to monitor.
--- NOTE | 2019-03-05 20:00 | NUR ---
NURSE NOTES: Repositioned patient and oral care given. Levophed continues at 2mch/min, blood pressure is 86/57 HR is 92 Afib rhythm. Patient remains awake, no acute respiratory distress at this time. Rectal tube remains in place. Temperature is 98.4F. Will continue to monitor.
[2019-03-05] MEDS: Dyna-Hex 2% Top Sol 2oz TOPIC SCH (20:26)
--- NOTE | 2019-03-05 20:52 | Critical Care Progress Note ---
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, chronic atrial fibrillation, hypertension, diastolic congestive heart failure, septic shock, hypothermia, hypotension, hypoxemia severe PCM, thrombocytopenia, anemia, leukocytosis, acute renal failure Vent support PLAN care noted and reviewed in detail ICU management reviewed in detail vent management - still on full vent support and difficult to wean keep negative as per cardiology meds reviewed monitor acid base support as able and discuss full code as outlined pressors to off IV antibiotics ID noted respiratory care SNF meds supportive care as outline suction and monitor imaging monitor for aspiration and change oxygen therapy as needed all care reviewed in detail ICU care reviewed close follow up of acid base closely needs trach as unable to wean remains very ill at present medications/laboratory data/nursing notes/ICU care reviewed in detail note reviewed and edited care discussed with RN and RT ICU time spent 42 minutes Critical Care - Subjective Interval Events: unable to wean all reviewed seen earlier this am alert but not tolerating wean hemodynamics better ROS Limited/Unobtainable: Yes Condition: critical EKG Rhythm: Sinus Rhythm Residuals: minimal Tube Feeding Tolerated: yes I&O: Intake and Output 03/04/19 03/05/19 19:00 07:00 Intake Total 668.75 ml 841.02 ml Output Total 1340 ml 525 ml Balance -671.25 ml 316.02 ml Free Water 100 ml IV Total 168.75 ml 181.02 ml Tube Feeding 400 ml 600 ml Other 60 ml Output Urine Total 1140 ml 445 ml Stool Total 200 ml 80 ml Critical Care - Objective ET-Tube: 7.0 ET Position: 22 Last 24 Hour Vital Signs Date Time Temp Pulse Resp B/P (MAP) Pulse Ox O2 Delivery O2 Flow Rate FiO2 03/05/19 20:30 91 19 86/57 (67) 98 03/05/19 20:00 35 03/05/19 20:00 Mechanical Ventilator 03/05/19 20:00 87 03/05/19 20:00 86/57 03/05/19 20:00 98.4 94 15 92/49 (63) 99 03/05/19 19:33 88 19 100 Mechanical Ventilator 35 89 17 35 03/05/19 19:30 90 18 96/57 (70) 100 03/05/19 19:00 98.1 93 18 92/54 (67) 99 03/05/19 19:00 92/54 03/05/19 18:45 98 27 103/52 (69) 99 03/05/19 18:15 90 24 94/48 (63) 99 03/05/19 18:00 92/54 03/05/19 17:45 92 20 85/59 (68) 99 03/05/19 17:30 96 28 91/56 (68) 99 03/05/19 17:15 94 28 93/46 (62) 98 03/05/19 17:00 92 22 84/42 (56) 99 03/05/19 17:00 84/42 03/05/19 16:51 100 20 35 03/05/19 16:45 95 18 85/58 (67) 100 03/05/19 16:30 94 26 100/48 (65) 100 03/05/19 16:15 96 23 85/57 (66) 100 03/05/19 16:00 Mechanical Ventilator 03/05/19 16:00 97 03/05/19 16:00 87/43 03/05/19 16:00 98.7 96 21 87/43 (58) 99 03/05/19 15:45 90 16 87/48 (61) 99 03/05/19 15:30 96 19 89/47 (61) 99 03/05/19 15:18 91 16 35 03/05/19 15:15 92 24 94/50 (65) 100 03/05/19 15:00 95 25 90/46 (61) 100 03/05/19 15:00 90/46 03/05/19 14:45 95 22 86/49 (61) 98 03/05/19 14:30 94 25 97/56 (70) 99 03/05/19 14:15 102 22 96/45 (62) 98 03/05/19 14:00 93 16 89/50 (63) 98 03/05/19 14:00 89/50 03/05/19 13:45 98 17 75/58 (64) 98 03/05/19 13:30 97 18 104/56 (72) 98 03/05/19 13:15 97 19 97/54 (68) 99 03/05/19 13:12 95 16 99 Mechanical Ventilator 35 89 17 35 03/05/19 13:00 95 16 93/53 (66) 99 03/05/19 13:00 35 11/25/19 13:00 93/53 03/05/19 12:45 98 16 93/53 (66) 98 03/05/19 12:30 92/57 03/05/19 12:30 98 20 92/57 (69) 97 03/05/19 12:15 99 19 109/64 (79) 99 03/05/19 12:00 Mechanical Ventilator 03/05/19 12:00 35 03/05/19 12:00 98.0 96 15 111/56 (74) 99 03/05/19 12:00 111/56 03/05/19 12:00 100 03/05/19 11:47 96/64 03/05/19 11:45 89/56 03/05/19 11:45 100 18 89/56 (67) 99 03/05/19 11:30 101 17 100/51 (67) 98 03/05/19 11:30 100/51 03/05/19 11:15 105 16 106/54 (71) 99 03/05/19 11:15 106/54 03/05/19 11:00 104 16 98 03/05/19 11:00 127/79 03/05/19 11:00 104 16 127/79 (95) 98 03/05/19 10:58 123 20 35 03/05/19 10:00 121/66 03/05/19 10:00 103 16 121/66 (84) 100 03/05/19 09:40 98 03/05/19 09:38 96 18 35 03/05/19 09:30 102 28 108/58 (75) 97 03/05/19 09:28 97 30 35 35 03/05/19 09:04 102 03/05/19 09:00 102 19 102/71 (81) 99 03/05/19 09:00 102/71 03/05/19 08:30 103 19 107/54 (71) 100 03/05/19 08:00 103 16 101/62 (75) 99 03/05/19 08:00 107 03/05/19 08:00 Mechanical Ventilator 03/05/19 08:00 35 03/05/19 08:00 101/62 03/05/19 08:00 105 03/05/19 07:30 98.9 101 16 98/69 (79) 100 03/05/19 07:25 96 18 100 Mechanical Ventilator 35 96 18 35 03/05/19 07:00 100 16 98/56 (70) 99 03/05/19 07:00 98/56 03/05/19 06:30 104 17 106/63 (77) 100 03/05/19 06:00 102/66 03/05/19 06:00 112 17 102/66 (78) 100 03/05/19 05:30 102 20 98/62 (74) 100 03/05/19 05:00 100 16 119/57 (77) 100 03/05/19 05:00 100 16 119/57 (77) 100 03/05/19 05:00 119/57 03/05/19 05:00 95 18 35 03/05/19 04:30 106 16 97/82 (87) 100 03/05/19 04:15 103 17 105/68 (80) 100 03/05/19 04:00 98.2 107 16 116/59 (78) 100 03/05/19 04:00 35 03/05/19 04:00 116/59 03/05/19 04:00 Mechanical Ventilator 03/05/19 03:30 107 21 108/80 (89) 100 03/05/19 03:30 107 21 108/80 (89) 100 03/05/19 03:15 109 18 118/67 (84) 100 03/05/19 03:15 109 18 118/67 (84) 100 03/05/19 03:06 116 03/05/19 03:00 110 20 114/57 (76) 100 03/05/19 03:00 110 20 114/57 (76) 100 03/05/19 03:00 114/57 03/05/19 02:36 96 19 35 03/05/19 02:30 65/33 03/05/19 02:30 102 19 65/33 (44) 91 03/05/19 02:30 102 19 65/33 (44) 91 03/05/19 02:15 102 22 109/64 (79) 100 03/05/19 02:15 102 22 109/64 (79) 100 03/05/19 02:00 87/59 03/05/19 02:00 102 21 87/59 (68) 100 03/05/19 02:00 102 21 87/59 (68) 100 03/05/19 01:45 100 19 101/63 (76) 100 03/05/19 01:45 100 19 101/63 (76) 100 03/05/19 01:30 98 17 101/58 (72) 100 03/05/19 01:30 98 17 101/58 (72) 100 03/05/19 01:14 92 18 35 03/05/19 01:00 102/63 03/05/19 01:00 96 16 102/63 (76) 100 03/05/19 01:00 96 16 102/63 (76) 100 03/05/19 00:30 94 16 109/68 (82) 100 03/05/19 00:00 Mechanical Ventilator 03/05/19 00:00 127/58 03/05/19 00:00 98.6 91 14 127/58 (81) 100 03/05/19 00:00 35 03/04/19 23:30 94 14 103/59 (74) 93 03/04/19 23:26 97 20 35 03/04/19 23:03 95 03/04/19 23:00 93 16 70/32 (45) 100 03/04/19 23:00 70/32 03/04/19 22:45 90 17 100/53 (69) 100 03/04/19 22:36 93 17 85/51 (62) 98 03/04/19 22:30 92 16 82/52 (62) 100 03/04/19 22:00 92/48 03/04/19 22:00 92 15 92/48 (63) 100 03/04/19 21:37 94/56 03/04/19 21:30 91 16 94/56 (69) 03/04/19 21:15 92 16 95/48 (64) 100 03/04/19 21:01 95 03/04/19 21:00 92 16 90/56 (67) 100 03/04/19 21:00 90/56 Labs: Labs Test 03/03/19 05:05 03/04/19 05:17 03/05/19 03:30 03/05/19 08:40 White Blood Count 12.0 K/UL (4.8-10.8) 12.2 K/UL (4.8-10.8) 12.8 K/UL (4.8-10.8) Red Blood Count 2.79 M/UL (4.20-5.40) 2.85 M/UL (4.20-5.40) 2.94 M/UL (4.20-5.40) Hemoglobin 9.0 G/DL (12.0-16.0) 9.1 G/DL (12.0-16.0) 9.4 G/DL (12.0-16.0) Hematocrit 28.1 % (37.0-47.0) 28.5 % (37.0-47.0) 28.9 % (37.0-47.0) Mean Corpuscular Volume 101 FL (80-99) 100 FL (80-99) 98 FL (80-99) Mean Corpuscular Hemoglobin 32.3 PG (27.0-31.0) 32.0 PG (27.0-31.0) 32.1 PG (27.0-31.0) Mean Corpuscular Hemoglobin Concent 32.0 G/DL (32.0-36.0) 32.0 G/DL (32.0-36.0) 32.6 G/DL (32.0-36.0) Red Cell Distribution Width 19.0 % (11.6-14.8) 18.9 % (11.6-14.8) 18.2 % (11.6-14.8) Platelet Count 56 K/UL (150-450) 72 K/UL (150-450) 75 K/UL (150-450) Mean Platelet Volume 7.4 FL (6.5-10.1) 9.1 FL (6.5-10.1) 8.4 FL (6.5-10.1) Neutrophils (%) (Auto) % (45.0-75.0) % (45.0-75.0) % (45.0-75.0) Lymphocytes (%) (Auto) % (20.0-45.0) % (20.0-45.0) % (20.0-45.0) Monocytes (%) (Auto) % (1.0-10.0) % (1.0-10.0) % (1.0-10.0) Eosinophils (%) (Auto) % (0.0-3.0) % (0.0-3.0) % (0.0-3.0) Basophils (%) (Auto) % (0.0-2.0) % (0.0-2.0) % (0.0-2.0) Differential Total Cells Counted 100 100 100 Neutrophils % (Manual) 91 % (45-75) 82 % (45-75) 90 % (45-75) Lymphocytes % (Manual) 3 % (20-45) 10 % (20-45) 5 % (20-45) Monocytes % (Manual) 4 % (1-10) 6 % (1-10) 5 % (1-10) Eosinophils % (Manual) 0 % (0-3) 1 % (0-3) 0 % (0-3) Basophils % (Manual) 0 % (0-2) 0 % (0-2) 0 % (0-2) Band Neutrophils 2 % (0-8) 1 % (0-8) 0 % (0-8) Platelet Estimate Decreased Decreased Decreased Platelet Morphology Normal Normal Normal Hypochromasia 2+ 1+ 1+ Anisocytosis 2+ 2+ 1+ Macrocytosis 1+ 1+ 1+ Spherocytes 1+ Sodium Level 142 MMOL/L (136-145) 145 MMOL/L (136-145) 145 MMOL/L (136-145) 142 MMOL/L (136-145) Potassium Level 5.3 MMOL/L (3.5-5.1) 3.9 MMOL/L (3.5-5.1) 3.7 MMOL/L (3.5-5.1) 3.6 MMOL/L (3.5-5.1) Chloride Level 112 MMOL/L (98-107) 113 MMOL/L (98-107) 112 MMOL/L (98-107) 112 MMOL/L (98-107) Carbon Dioxide Level 24 MMOL/L (21-32) 25 MMOL/L (21-32) 23 MMOL/L (21-32) 28 MMOL/L (21-32) Anion Gap 6 mmol/L (5-15) 7 mmol/L (5-15) 10 mmol/L (5-15) 3 mmol/L (5-15) Blood Urea Nitrogen 29 mg/dL (7-18) 33 mg/dL (7-18) 32 mg/dL (7-18) 34 mg/dL (7-18) Creatinine 1.0 MG/DL (0.55-1.30) 1.0 MG/DL (0.55-1.30) 0.9 MG/DL (0.55-1.30) 0.9 MG/DL (0.55-1.30) Estimat Glomerular Filtration Rate mL/min (>60) mL/min (>60) mL/min (>60) mL/min (>60) Glucose Level 159 MG/DL (74-106) 173 MG/DL (74-106) 149 MG/DL (74-106) 155 MG/DL (74-106) Uric Acid 6.7 MG/DL (2.6-7.2) 6.5 MG/DL (2.6-7.2) Calcium Level 7.8 MG/DL (8.5-10.1) 7.7 MG/DL (8.5-10.1) 7.7 MG/DL (8.5-10.1) 7.5 MG/DL (8.5-10.1) Phosphorus Level 2.9 MG/DL (2.5-4.9) 2.9 MG/DL (2.5-4.9) Magnesium Level 1.6 MG/DL (1.8-2.4) 1.8 MG/DL (1.8-2.4) Total Bilirubin 2.5 MG/DL (0.2-1.0) 2.4 MG/DL (0.2-1.0) 2.3 MG/DL (0.2-1.0) 2.4 MG/DL (0.2-1.0) Direct Bilirubin 1.7 MG/DL (0.0-0.3) 1.8 MG/DL (0.0-0.3) 1.7 MG/DL (0.0-0.3) 1.8 MG/DL (0.0-0.3) Aspartate Amino Transf (AST/SGOT) 89 U/L (15-37) 80 U/L (15-37) 85 U/L (15-37) 79 U/L (15-37) Alanine Aminotransferase (ALT/SGPT) 56 U/L (12-78) 54 U/L (12-78) 51 U/L (12-78) 58 U/L (12-78) Alkaline Phosphatase 187 U/L (46-116) 203 U/L (46-116) 212 U/L (46-116) 205 U/L (46-116) C-Reactive Protein, Quantitative 24.0 mg/dL (0.00-0.90) Pro-B-Type Natriuretic Peptide 67742 pg/mL (0-125) Total Protein 5.5 G/DL (6.4-8.2) 5.4 G/DL (6.4-8.2) 5.3 G/DL (6.4-8.2) 4.9 G/DL (6.4-8.2) Albumin 1.6 G/DL (3.4-5.0) 1.5 G/DL (3.4-5.0) 1.5 G/DL (3.4-5.0) 1.5 G/DL (3.4-5.0) Globulin 3.9 g/dL 3.9 g/dL 3.8 g/dL 3.4 g/dL Albumin/Globulin Ratio 0.4 (1.0-2.7) 0.4 (1.0-2.7) 0.4 (1.0-2.7) 0.4 (1.0-2.7 ) Ovalocytes Occasional Digoxin Level 2.2 NG/ML (0.9-2.0) 1.5 NG/ML (0.9-2.0) Polychromasia 1+ Erythrocyte Sedimentation Rate 90 MM/HR (0-30) Prothrombin Time 11.4 SEC (9.30-11.50) Prothromb Time International Ratio 1.1 (0.9-1.1) Activated Partial Thromboplast Time 36 SEC (23-33) Amylase Level 145 U/L (25-115) Lipase 862 U/L (73-393) Objective: PHYSICAL EXAMINATION: GENERAL: The patient is a chronically ill-appearing female, on VENT and not weaning yet NECK: Supple. There is a central line in the right subclavian area. HEART: iRRR.without MRG LUNGS: reduced breath sounds with some rhonchi; no wheeze ABDOMEN: Soft, nontender, nondistended. no HSM EXTREMITIES: No clubbing, cyanosis, or edema. NEURO: response to pain skin noted Accucheck: 72 Ishaaya,Jan M MD Mar 05, 2019 20:52
--- NOTE | 2019-03-05 22:00 | NUR ---
NURSE NOTES: Decreased Levophed to 1mcg/min. So far blood pressure is staying steady. SBP has sustained above 90 and MAP of above 60. Patient remains awake. HR has remained for the most part in the 90s in Afib rhythm. Saturating at 100% with Fio2 of 35%. Repositioned patient. Rectal tube flowing brown liquid diarrhea. Gross Care provided. Will continue to monitor.
--- NOTE | 2019-03-05 22:35 | General Progress Note ---
Assessment/Plan Status: stable, not improved, deteriorating Assessment/Plan: Assessment - GT dependent - Hepatitis C (+) - Abnormal LFT, ascites, thrombocytopenia - suspect chronic liver disease - Lactic acidosis - Resp failure - OBS / Delirium - Azotemia - Diarrhea - improved off of lactulose - poor PX Recommendations - supportive care - continue TF - elevate HOB - frequent dry GT dressing changes - Abx per ID - agree with DNR Subjective Allergies: Coded Allergies: No Known Allergies (Unverified , 02/19/19) Subjective Above noted intubated tolerating TF still with diarrhea minimal GT leak Objective Last 24 Hour Vital Signs Date Time Temp Pulse Resp B/P (MAP) Pulse Ox O2 Delivery O2 Flow Rate FiO2 03/05/19 21:45 92 12 115/84 (94) 98 03/05/19 21:32 98 22 35 03/05/19 21:30 92 19 100/84 (89) 99 03/05/19 21:15 91 16 125/52 (76) 97 03/05/19 21:00 92 13 87/55 (66) 97 03/05/19 21:00 87/55 03/05/19 20:30 91 19 86/57 (67) 98 03/05/19 20:00 35 03/05/19 20:00 Mechanical Ventilator 03/05/19 20:00 87 03/05/19 20:00 86/57 03/05/19 20:00 98.4 94 15 92/49 (63) 99 03/05/19 19:33 88 19 100 Mechanical Ventilator 35 89 17 35 03/05/19 19:30 90 18 96/57 (70) 100 03/05/19 19:00 98.1 93 18 92/54 (67) 99 03/05/19 19:00 92/54 03/05/19 18:45 98 27 103/52 (69) 99 03/05/19 18:15 90 24 94/48 (63) 99 03/05/19 18:00 92/54 03/05/19 17:45 92 20 85/59 (68) 99 03/05/19 17:30 96 28 91/56 (68) 99 03/05/19 17:15 94 28 93/46 (62) 98 03/05/19 17:00 92 22 84/42 (56) 99 03/05/19 17:00 84/42 03/05/19 16:51 100 20 35 03/05/19 16:45 95 18 85/58 (67) 100 03/05/19 16:30 94 26 100/48 (65) 100 03/05/19 16:15 96 23 85/57 (66) 100 03/05/19 16:00 Mechanical Ventilator 03/05/19 16:00 97 03/05/19 16:00 87/43 03/05/19 16:00 98.7 96 21 87/43 (58) 99 03/05/19 15:45 90 16 87/48 (61) 99 03/05/19 15:30 96 19 89/47 (61) 99 03/05/19 15:18 91 16 35 03/05/19 15:15 92 24 94/50 (65) 100 03/05/19 15:00 95 25 90/46 (61) 100 03/05/19 15:00 90/46 03/05/19 14:45 95 22 86/49 (61) 98 03/05/19 14:30 94 25 97/56 (70) 99 03/05/19 14:15 102 22 96/45 (62) 98 03/05/19 14:00 93 16 89/50 (63) 98 03/05/19 14:00 89/50 03/05/19 13:45 98 17 75/58 (64) 98 03/05/19 13:30 97 18 104/56 (72) 98 03/05/19 13:15 97 19 97/54 (68) 99 03/05/19 13:12 95 16 99 Mechanical Ventilator 35 89 17 35 03/05/19 13:00 95 16 93/53 (66) 99 03/05/19 13:00 35 03/05/19 13:00 93/53 03/05/19 12:45 98 16 93/53 (66) 98 03/05/19 12:30 92/57 03/05/19 12:30 98 20 92/57 (69) 97 03/05/19 12:15 99 19 109/64 (79) 99 03/05/19 12:00 Mechanical Ventilator 03/05/19 12:00 35 03/05/19 12:00 98.0 96 15 111/56 (74) 99 03/05/19 12:00 111/56 03/05/19 12:00 100 03/05/19 11:47 96/64 03/05/19 11:45 89/56 03/05/19 11:45 100 18 89/56 (67) 99 03/05/19 11:30 101 17 100/51 (67) 98 03/05/19 11:30 100/51 03/05/19 11:15 105 16 106/54 (71) 99 03/05/19 11:15 106/54 03/05/19 11:00 104 16 98 03/05/19 11:00 127/79 03/05/19 11:00 104 16 127/79 (95) 98 03/05/19 10:58 123 20 35 03/05/19 10:00 121/66 03/05/19 10:00 103 16 121/66 (84) 100 03/05/19 09:40 98 03/05/19 09:38 96 18 35 03/05/19 09:30 102 28 108/58 (75) 97 03/05/19 09:28 97 30 35 35 03/05/19 09:04 102 03/05/19 09:00 102 19 102/71 (81) 99 03/05/19 09:00 102/71 03/05/19 08:30 103 19 107/54 (71) 100 03/05/19 08:00 103 16 101/62 (75) 99 03/05/19 08:00 107 03/05/19 08:00 Mechanical Ventilator 03/05/19 08:00 35 03/05/19 08:00 101/62 03/05/19 08:00 105 03/05/19 07:30 98.9 101 16 98/69 (79) 100 03/05/19 07:25 96 18 100 Mechanical Ventilator 35 96 18 35 03/05/19 07:00 100 16 98/56 (70) 99 03/05/19 07:00 98/56 03/05/19 06:30 104 17 106/63 (77) 100 03/05/19 06:00 102/66 03/05/19 06:00 112 17 102/66 (78) 100 03/05/19 05:30 102 20 98/62 (74) 100 03/05/19 05:00 100 16 119/57 (77) 100 03/05/19 05:00 100 16 119/57 (77) 100 03/05/19 05:00 119/57 03/05/19 05:00 95 18 35 03/05/19 04:30 106 16 97/82 (87) 100 03/05/19 04:15 103 17 105/68 (80) 100 03/05/19 04:00 98.2 107 16 116/59 (78) 100 03/05/19 04:00 35 03/05/19 04:00 116/59 03/05/19 04:00 Mechanical Ventilator 03/05/19 03:30 107 21 108/80 (89) 100 03/05/19 03:30 107 21 108/80 (89) 100 03/05/19 03:15 109 18 118/67 (84) 100 03/05/19 03:15 109 18 118/67 (84) 100 03/05/19 03:06 116 03/05/19 03:00 110 20 114/57 (76) 100 03/05/19 03:00 110 20 114/57 (76) 100 03/05/19 03:00 114/57 03/05/19 02:36 96 19 35 03/05/19 02:30 65/33 03/05/19 02:30 102 19 65/33 (44) 91 03/05/19 02:30 102 19 65/33 (44) 91 03/05/19 02:15 102 22 109/64 (79) 100 03/05/19 02:15 102 22 109/64 (79) 100 03/05/19 02:00 87/59 03/05/19 02:00 102 21 87/59 (68) 100 03/05/19 02:00 102 21 87/59 (68) 100 03/05/19 01:45 100 19 101/63 (76) 100 03/05/19 01:45 100 19 101/63 (76) 100 03/05/19 01:30 98 17 101/58 (72) 100 03/05/19 01:30 98 17 101/58 (72) 100 03/05/19 01:14 92 18 35 03/05/19 01:00 102/63 03/05/19 01:00 96 16 102/63 (76) 100 03/05/19 01:00 96 16 102/63 (76) 100 03/05/19 00:30 94 16 109/68 (82) 100 03/05/19 00:00 Mechanical Ventilator 03/05/19 00:00 127/58 03/05/19 00:00 98.6 91 14 127/58 (81) 100 03/05/19 00:00 35 03/04/19 23:30 94 14 103/59 (74) 93 03/04/19 23:26 97 20 35 03/04/19 23:03 95 03/04/19 23:00 93 16 70/32 (45) 100 03/04/19 23:00 70/32 03/04/19 22:45 90 17 100/53 (69) 100 03/04/19 22:36 93 17 85/51 (62) 98 Intake and Output 03/04/19 03/05/19 19:00 07:00 Intake Total 668.75 ml 841.02 ml Output Total 1340 ml 525 ml Balance -671.25 ml 316.02 ml Free Water 100 ml IV Total 168.75 ml 181.02 ml Tube Feeding 400 ml 600 ml Other 60 ml Output Urine Total 1140 ml 445 ml Stool Total 200 ml 80 ml Laboratory Tests 03/05/19 03:30: White Blood Count 12.8H, Red Blood Count 2.94L, Hemoglobin 9.4L, Hematocrit 28.9L, Mean Corpuscular Volume 98, Mean Corpuscular Hemoglobin 32.1H, Mean Corpuscular Hemoglobin Concent 32.6, Red Cell Distribution Width 18.2H, Platelet Count 75L, Mean Platelet Volume 8.4, Neutrophils (%) (Auto) , Lymphocytes (%) (Auto) , Monocytes (%) (Auto) , Eosinophils (%) (Auto) , Basophils (%) (Auto) , Differential Total Cells Counted 100, Neutrophils % ( Manual) 90H, Lymphocytes % (Manual) 5L, Monocytes % (Manual) 5, Eosinophils % ( Manual) 0, Basophils % (Manual) 0, Band Neutrophils 0, Platelet Estimate DecreasedL, Platelet Morphology Normal, Polychromasia 1+, Hypochromasia 1+, Anisocytosis 1+, Macrocytosis 1+, Erythrocyte Sedimentation Rate 90H, Prothrombin Time 11.4, Prothromb Time International Ratio 1.1, Activated Partial Thromboplast Time 36H, Sodium Level 145, Potassium Level 3.7, Chloride Level 112H, Carbon Dioxide Level 23, Anion Gap 10, Blood Urea Nitrogen 32H, Creatinine 0.9, Estimat Glomerular Filtration Rate , Glucose Level 149H, Calcium Level 7.7L, Total Bilirubin 2.3H, Direct Bilirubin 1.7H, Aspartate Amino Transf (AST/SGOT) 85H, Alanine Aminotransferase (ALT/SGPT) 51, Alkaline Phosphatase 212H, Total Protein 5.3L, Albumin 1.5L, Globulin 3.8, Albumin/ Globulin Ratio 0.4L, Amylase Level 145H, Lipase 862H, Digoxin Level 1.5 03/05/19 08:40: Sodium Level 142, Potassium Level 3.6, Chloride Level 112H, Carbon Dioxide Level 28, Anion Gap 3L, Blood Urea Nitrogen 34H, Creatinine 0.9, Estimat Glomerular Filtration Rate , Glucose Level 155H, Calcium Level 7.5L, Total Bilirubin 2.4H, Direct Bilirubin 1.8H, Aspartate Amino Transf (AST/SGOT) 79H, Alanine Aminotransferase (ALT/SGPT) 58, Alkaline Phosphatase 205H, Total Protein 4.9L, Albumin 1.5L, Globulin 3.4, Albumin/Globulin Ratio 0.4L Height (Feet): 5 Height (Inches): 6.00 Weight (Pounds): 155 Objective WDWN NCAT Supple Coarse ronchi RR abd soft ND NT, (+) GT, some skin breakdown at GT site obtunded contracted César Saldana MD Mar 05, 2019 22:35
[2019-03-06] VITALS (40 sets, daily range): BP systolic 78–124; BP diastolic 43–67
--- NOTE | 2019-03-06 | NUR ---
NURSE NOTES: Decreased Levophed to 0.5mcg/min. So far MAP has been remaining above 60mmhg and SBP within the 90s. HR in the 80s and 90s in afib rhythm. Patient was repositioned and oral care given. Patient is on and off awake and asleep. Not much urine output from Gross catheter. Rectal tube still draining brown liquid diarrhea. No acute distress at this time. No fevers either. Will continue to monitor.
[2019-03-06] MEDS: Hydrocortisone 100mg Inj IV SCH ×3 (00:22→17:32)
--- NOTE | 2019-03-06 02:00 | NUR ---
NURSE NOTES: Repositioned patient and adjusted pillows to comfort. Rectal tube still draining liquid diarrhea. Pressors ongoing. Tried to turn off pressors but patient would drop into the lower 70s SBP with several cycles of BP. Right now 0.5mcg/min seems to be where blood pressure is more stable. Patient is awake and knoding head to simple commands. Not much urine output. Will continue to monitor.
--- NOTE | 2019-03-06 04:00 | NUR ---
NURSE NOTES: Blood pressure is 94/50 at 0.5mcg/min Levophed. Patient was cleaned and PICC line dressing was changed using aseptic technique. Gross care was performed. Rectal tube remains in place and draining. Patient is awake. Patients is able to lift up both arms. No acute respiratory distress at this time.Will continue to monitor.
[2019-03-06 04:44] LABS: HEMATOCRIT 25.6 % (37.0-47.0); HEMOGLOBIN 8.1 G/DL (12.0-16.0); MEAN CORPUSCULAR VOLUME 99 FL (80-99); PLATELET COUNT 62 K/UL (150-450); RED BLOOD COUNT 2.59 M/UL (4.20-5.40); RED CELL DISTRIBUTION WIDTH 18.8 % (11.6-14.8); WHITE BLOOD COUNT 9.4 K/UL (4.8-10.8)
[2019-03-06 05:10] LABS: ALANINE AMINOTRANSFERASE 40 U/L (12-78); ALBUMIN 1.8 G/DL (3.4-5.0); ALBUMIN/GLOBULIN RATIO 0.5 (1.0-2.7); ALKALINE PHOSPHATASE 162 U/L (46-116); ANION GAP 10 mmol/L (5-15); ASPARTATE AMINO TRANSFERASE 55 U/L (15-37); BILIRUBIN,TOTAL 1.9 MG/DL (0.2-1.0); BLOOD UREA NITROGEN 37 mg/dL (7-18); CALCIUM 7.7 MG/DL (8.5-10.1); CARBON DIOXIDE 24 MMOL/L (21-32); CHLORIDE 112 MMOL/L (98-107); CREATININE 0.9 MG/DL (0.55-1.30); POTASSIUM 3.6 MMOL/L (3.5-5.1); SODIUM 146 MMOL/L (136-145)
[2019-03-06] MEDS: metroNIDAZOLE 500mg tab GT SCH ×3 (05:18→20:39)
[2019-03-06 05:41] LABS: BILIRUBIN,DIRECT 1.3 MG/DL (0.0-0.3)
--- NOTE | 2019-03-06 06:00 | NUR ---
NURSE NOTES: Will hold Levophed and monitor blood pressure. BP right now is 104/60 (70). HR is 82 Afib rhythm. Patient remains awake and alert. Deep suctioned patient and lavaged. Checked GT feed residual and no residual noted. Repositioned patient to comfort. No distress at this time. Will continue to monitor.
--- NOTE | 2019-03-06 07:21 | NUR ---
HAND-OFF: Report given to Bri HDZ.
--- NOTE | 2019-03-06 07:22 | NUR ---
NURSE NOTES: Received patient from ANDREINA Alcocer. Patient is A&OX1. Patient is awake and alert, nods head in response to questions. Patient is orally intubated ETT 7.0, 22cm at lower lip line. With vent settings of AC 16, TV 500, 35% FiO2 and peep of 5. SpO2 is 100%. Patient has a G-tube infusing Vital AF 1.2 at 50ml/hr. Rectal tube noted with liquid brown stool. Gross catheter draining yellow urine. KELVIN PICC, dressing clean, dry and intact. SCD's on. Multiple wounds noted, see WCP. Pt is on a P200 mattress. Patient has pitting edema on upper and lower extremities with fluid seeping from the upper extremities. No acute distress noted at this time. Safety measures are in place, bed locked and lowest position with call light within reach. Will resume plan of care.
[2019-03-06] MEDS: Albuterol/Ipratropium 3ml neb HHN PRN ×3 (07:25→19:37)
--- NOTE | 2019-03-06 07:37 | NUR ---
RESPIRATORY NOTE: Received pt on ETT 7.5@22cm lip line, secured by anchor fast, with the current vent settings: AC 16-500ml-35%FiO2- peep 5. Pt is awake, no SOB or resp distress noted. Alarms are set and audible, vent is plugged into the red outlet, ambu bag is at bedside. Will attempt to wean pt in the next vent check and continue to monitor pt.
--- NOTE | 2019-03-06 08:21 | General Progress Note ---
Assessment/Plan Problem List: (1) Septic shock ICD Codes: A41.9 - Sepsis, unspecified organism; R65.21 - Severe sepsis with septic shock SNOMED: 79188401 (2) UTI (urinary tract infection) ICD Codes: N39.0 - Urinary tract infection, site not specified SNOMED: 88565607 Qualifiers: Qualified Codes: N39.0 - Urinary tract infection, site not specified (3) Renal failure ICD Codes: N19 - Unspecified kidney failure SNOMED: 42407874 Qualifiers: Qualified Codes: N17.9 - Acute kidney failure, unspecified (4) Abdominal pain ICD Codes: R10.9 - Unspecified abdominal pain SNOMED: 31979892 Qualifiers: Qualified Codes: R10.32 - Left lower quadrant pain (5) Severe sepsis ICD Codes: A41.9 - Sepsis, unspecified organism; R65.20 - Severe sepsis without septic shock SNOMED: 32770520 (6) Dehydration ICD Codes: E86.0 - Dehydration SNOMED: 58505123 (7) Atrial fibrillation with rapid ventricular response ICD Codes: I48.91 - Unspecified atrial fibrillation SNOMED: 141653855477966 Status: stable, not improved, deteriorating Assessment/Plan: cont supportive care wean vent as able resp rx suctioning hope to avoid trach wean pressors midodrine try stress dose steroids again- try albumin for bp try diuresis. monitor bp resp rx and suctioning as needed monitor labs scd iv abx per id tube feeds Subjective ROS Limited/Unobtainable: Yes Constitutional: Reports: malaise, weakness HEENT: Reports: no symptoms Cardiovascular: Reports: no symptoms Respiratory: Reports: shortness of breath, sputum Gastrointestinal/Abdominal: Reports: difficulty swallowing Allergies: Coded Allergies: No Known Allergies (Unverified , 02/19/19) All Systems: reviewed and negative except above Subjective no events. w/o complaints. remains on the vent. pulm noted- difficult to wean. no fevers or chills. no sob. alert. responded well to lasix. BP remains low- on levophed at 1. Objective Last 24 Hour Vital Signs Date Time Temp Pulse Resp B/P (MAP) Pulse Ox O2 Delivery O2 Flow Rate FiO2 03/06/19 08:00 97.6 81 16 86/50 (62) 100 03/06/19 08:00 35 03/06/19 07:15 85 19 104/52 (69) 100 03/06/19 07:00 82 17 90/51 (64) 100 03/06/19 06:30 83 17 95/49 (64) 100 03/06/19 06:15 81 18 100/52 (68) 100 03/06/19 06:00 83 17 104/60 (75) 98 03/06/19 05:45 82 18 91/53 (66) 100 03/06/19 05:30 81 17 93/54 (67) 100 03/06/19 05:15 83 16 35 03/06/19 05:15 82 15 88/48 (61) 98 03/06/19 05:00 80 16 94/50 (65) 98 03/06/19 05:00 94/50 03/06/19 04:45 81 15 91/47 (62) 100 03/06/19 04:30 82 16 95/48 (64) 96 03/06/19 04:00 Mechanical Ventilator 03/06/19 04:00 35 03/06/19 04:00 82/49 03/06/19 04:00 82 03/06/19 04:00 98.2 82 17 82/49 (60) 96 03/06/19 03:30 91 17 103/59 (74) 03/06/19 03:15 87 18 35 03/06/19 03:00 94 21 124/46 (72) 100 03/06/19 03:00 85/49 03/06/19 02:30 89 20 99/65 (76) 95 03/06/19 02:00 103/61 03/06/19 02:00 89 21 103/61 (75) 97 03/06/19 01:30 90 17 90/50 (63) 100 03/06/19 01:26 105 16 35 03/06/19 01:15 90 18 78/51 (60) 97 03/06/19 01:00 86 17 92/46 (61) 96 03/06/19 01:00 92/46 03/06/19 00:45 88 17 83/46 (58) 96 03/06/19 00:30 89 19 89/43 (58) 95 03/06/19 00:15 90 20 87/46 (60) 96 03/06/19 00:00 95 03/06/19 00:00 35 03/06/19 00:00 Mechanical Ventilator 03/06/19 00:00 86/51 03/06/19 00:00 99.1 92 21 86/51 (63) 95 03/05/19 23:45 91 13 106/61 (76) 97 03/05/19 23:30 93 25 127/48 (74) 99 03/05/19 23:15 94 21 115/59 (77) 100 03/05/19 23:00 113/59 03/05/19 23:00 95 27 113/59 (77) 100 03/05/19 22:54 93 24 35 03/05/19 22:45 93 24 98/62 (74) 99 03/05/19 22:30 97 26 96/61 (73) 99 03/05/19 22:15 93 22 112/64 (80) 100 03/05/19 22:00 92 23 108/68 (81) 99 03/05/19 22:00 108/68 03/05/19 21:45 92 12 115/84 (94) 98 03/05/19 21:32 98 22 35 03/05/19 21:30 92 19 100/84 (89) 99 03/05/19 21:15 91 16 125/52 (76) 97 03/05/19 21:00 92 13 87/55 (66) 97 03/05/19 21:00 87/55 03/05/19 20:30 91 19 86/57 (67) 98 03/05/19 20:00 35 03/05/19 20:00 Mechanical Ventilator 03/05/19 20:00 87 03/05/19 20:00 86/57 03/05/19 20:00 98.4 94 15 92/49 (63) 99 03/05/19 19:33 88 19 100 Mechanical Ventilator 35 89 17 35 03/05/19 19:30 90 18 96/57 (70) 100 03/05/19 19:00 98.1 93 18 92/54 (67) 99 03/05/19 19:00 92/54 03/05/19 18:45 98 27 103/52 (69) 99 03/05/19 18:15 90 24 94/48 (63) 99 03/05/19 18:00 92/54 03/05/19 17:45 92 20 85/59 (68) 99 03/05/19 17:30 96 28 91/56 (68) 99 03/05/19 17:15 94 28 93/46 (62) 98 03/05/19 17:00 92 22 84/42 (56) 99 03/05/19 17:00 84/42 03/05/19 16:51 100 20 35 03/05/19 16:45 95 18 85/58 (67) 100 03/05/19 16:30 94 26 100/48 (65) 100 03/05/19 16:15 96 23 85/57 (66) 100 03/05/19 16:00 Mechanical Ventilator 03/05/19 16:00 97 03/05/19 16:00 87/43 03/05/19 16:00 98.7 96 21 87/43 (58) 99 03/05/19 15:45 90 16 87/48 (61) 99 03/05/19 15:30 96 19 89/47 (61) 99 03/05/19 15:18 91 16 35 03/05/19 15:15 92 24 94/50 (65) 100 03/05/19 15:00 95 25 90/46 (61) 100 03/05/19 15:00 90/46 03/05/19 14:45 95 22 86/49 (61) 98 03/05/19 14:30 94 25 97/56 (70) 99 03/05/19 14:15 102 22 96/45 (62) 98 03/05/19 14:00 93 16 89/50 (63) 98 03/05/19 14:00 89/50 03/05/19 13:45 98 17 75/58 (64) 98 03/05/19 13:30 97 18 104/56 (72) 98 03/05/19 13:15 97 19 97/54 (68) 99 03/05/19 13:12 95 16 99 Mechanical Ventilator 35 89 17 35 03/05/19 13:00 95 16 93/53 (66) 99 03/05/19 13:00 35 03/05/19 13:00 93/53 03/05/19 12:45 98 16 93/53 (66) 98 03/05/19 12:30 92/57 03/05/19 12:30 98 20 92/57 (69) 97 03/05/19 12:15 99 19 109/64 (79) 99 03/05/19 12:00 Mechanical Ventilator 03/05/19 12:00 35 03/05/19 12:00 98.0 96 15 111/56 (74) 99 03/05/19 12:00 111/56 03/05/19 12:00 100 03/05/19 11:47 96/64 03/05/19 11:45 89/56 03/05/19 11:45 100 18 89/56 (67) 99 03/05/19 11:30 101 17 100/51 (67) 98 03/05/19 11:30 100/51 03/05/19 11:15 105 16 106/54 (71) 99 03/05/19 11:15 106/54 03/05/19 11:00 104 16 98 03/05/19 11:00 127/79 03/05/19 11:00 104 16 127/79 (95) 98 03/05/19 10:58 123 20 35 03/05/19 10:00 121/66 03/05/19 10:00 103 16 121/66 (84) 100 03/05/19 09:40 98 03/05/19 09:38 96 18 35 03/05/19 09:30 102 28 108/58 (75) 97 03/05/19 09:28 97 30 35 35 03/05/19 09:04 102 03/05/19 09:00 102 19 102/71 (81) 99 03/05/19 09:00 102/71 03/05/19 08:30 103 19 107/54 (71) 100 Intake and Output 03/05/19 03/06/19 19:00 07:00 Intake Total 625.2500 ml 795.88 ml Output Total 380 ml 175 ml Balance 245.2500 ml 620.88 ml Free Water 80 ml IV Total 125.2500 ml 115.88 ml Tube Feeding 500 ml 600 ml Output Urine Total 330 ml 175 ml Stool Total 50 ml Laboratory Tests 03/05/19 08:40: Sodium Level 142, Potassium Level 3.6, Chloride Level 112H, Carbon Dioxide Level 28, Anion Gap 3L, Blood Urea Nitrogen 34H, Creatinine 0.9, Estimat Glomerular Filtration Rate , Glucose Level 155H, Calcium Level 7.5L, Total Bilirubin 2.4H, Direct Bilirubin 1.8H, Aspartate Amino Transf (AST/SGOT) 79H, Alanine Aminotransferase (ALT/SGPT) 58, Alkaline Phosphatase 205H, Total Protein 4.9L, Albumin 1.5L, Globulin 3.4, Albumin/Globulin Ratio 0.4L 03/06/19 04:00: Sodium Level 146H, Potassium Level 3.6, Chloride Level 112H, Carbon Dioxide Level 24, Anion Gap 10, Blood Urea Nitrogen 37H, Creatinine 0.9, Estimat Glomerular Filtration Rate , Glucose Level 181H, Calcium Level 7.7L, Total Bilirubin 1.9H, Direct Bilirubin 1.3H, Aspartate Amino Transf (AST/SGOT) 55H, Alanine Aminotransferase (ALT/SGPT) 40, Alkaline Phosphatase 162H, Total Protein 5.4L, Albumin 1.8L, Globulin 3.6, Albumin/Globulin Ratio 0.5L, White Blood Count 9.4, Red Blood Count 2.59L, Hemoglobin 8.1L, Hematocrit 25.6L, Mean Corpuscular Volume 99, Mean Corpuscular Hemoglobin 31.4H, Mean Corpuscular Hemoglobin Concent 31.8L, Red Cell Distribution Width 18.8H, Platelet Count 62L , Mean Platelet Volume 7.5, Neutrophils (%) (Auto) , Lymphocytes (%) (Auto) , Monocytes (%) (Auto) , Eosinophils (%) (Auto) , Basophils (%) (Auto) , Neutrophils % (Manual) [Pending], Lymphocytes % (Manual) [Pending], Platelet Estimate [Pending], Platelet Morphology [Pending] Height (Feet): 5 Height (Inches): 6.00 Weight (Pounds): 163 Objective General Appearance: WD/WN, confused. more responsive, orally intubated Neck: supple Cardiovascular: irregularly irregular Respiratory/Chest: chest wall non-tender, lungs clear, normal breath sounds, no respiratory distress Abdomen: normal bowel sounds, non tender, soft, no organomegaly Edema: no edema noted Arm (L), no edema noted Arm (R), no edema noted Leg (L), no edema noted Leg (R), no edema noted Pedal (L), no edema noted Pedal (R), no edema noted Generalized Neurologic: disoriented Mitchel Reis MD Mar 06, 2019 08:21
--- NOTE | 2019-03-06 08:35 | Critical Care Progress Note ---
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, chronic atrial fibrillation, hypertension, diastolic congestive heart failure, septic shock, hypothermia, hypotension, hypoxemia severe PCM, thrombocytopenia, anemia, leukocytosis, acute renal failure Vent support PLAN care noted and reviewed in detail ICU management reviewed in detail vent management - still on full vent support and difficult to wean d/w surgery for trach keep negative as per cardiology meds reviewed monitor acid base supportive care reviewed full code as outlined pressors to off IV antibiotics ID noted respiratory care SNF meds noted monitor feeds and reflux suction and monitor imaging monitor for aspiration and change oxygen therapy as needed all care reviewed in detail ICU care reviewed close follow up of acid base closely needs trach as unable to wean remains very ill at present medications/laboratory data/nursing notes/ICU care reviewed in detail note reviewed and edited care discussed with RN and RT ICU time spent 40 minutes Critical Care - Subjective Interval Events: findings noted remains ill chronically vent ICU care reviewed ROS Limited/Unobtainable: Yes Condition: critical EKG Rhythm: Sinus Rhythm Residuals: minimal Tube Feeding Tolerated: yes I&O: Intake and Output 03/05/19 03/06/19 19:00 07:00 Intake Total 625.2500 ml 795.88 ml Output Total 380 ml 175 ml Balance 245.2500 ml 620.88 ml Free Water 80 ml IV Total 125.2500 ml 115.88 ml Tube Feeding 500 ml 600 ml Output Urine Total 330 ml 175 ml Stool Total 50 ml Critical Care - Objective ET-Tube: 7.0 ET Position: 22 Last 24 Hour Vital Signs Date Time Temp Pulse Resp B/P (MAP) Pulse Ox O2 Delivery O2 Flow Rate FiO2 03/06/19 08:00 97.6 81 16 86/50 (62) 100 03/06/19 08:00 Mechanical Ventilator 03/06/19 08:00 35 03/06/19 07:52 82 03/06/19 07:37 82 16 100 Mechanical Ventilator 35 80 16 35 03/06/19 07:15 85 19 104/52 (69) 100 03/06/19 07:00 82 17 90/51 (64) 100 03/06/19 06:30 83 17 95/49 (64) 100 03/06/19 06:15 81 18 100/52 (68) 100 03/06/19 06:00 83 17 104/60 (75) 98 03/06/19 05:45 82 18 91/53 (66) 100 03/06/19 05:30 81 17 93/54 (67) 100 03/06/19 05:15 83 16 35 03/06/19 05:15 82 15 88/48 (61) 98 03/06/19 05:00 80 16 94/50 (65) 98 03/06/19 05:00 94/50 03/06/19 04:45 81 15 91/47 (62) 100 03/06/19 04:30 82 16 95/48 (64) 96 03/06/19 04:00 Mechanical Ventilator 03/06/19 04:00 35 03/06/19 04:00 82/49 03/06/19 04:00 82 03/06/19 04:00 98.2 82 17 82/49 (60) 96 03/06/19 03:30 91 17 103/59 (74) 03/06/19 03:15 87 18 35 03/06/19 03:00 94 21 124/46 (72) 100 03/06/19 03:00 85/49 03/06/19 02:30 89 20 99/65 (76) 95 03/06/19 02:00 103/61 03/06/19 02:00 89 21 103/61 (75) 97 03/06/19 01:30 90 17 90/50 (63) 100 03/06/19 01:26 105 16 35 03/06/19 01:15 90 18 78/51 (60) 97 03/06/19 01:00 86 17 92/46 (61) 96 03/06/19 01:00 92/46 03/06/19 00:45 88 17 83/46 (58) 96 03/06/19 00:30 89 19 89/43 (58) 95 03/06/19 00:15 90 20 87/46 (60) 96 03/06/19 00:00 95 03/06/19 00:00 35 03/06/19 00:00 Mechanical Ventilator 03/06/19 00:00 86/51 03/06/19 00:00 99.1 92 21 86/51 (63) 95 03/05/19 23:45 91 13 106/61 (76) 97 03/05/19 23:30 93 25 127/48 (74) 99 03/05/19 23:15 94 21 115/59 (77) 100 03/05/19 23:00 113/59 03/05/19 23:00 95 27 113/59 (77) 100 03/05/19 22:54 93 24 35 03/05/19 22:45 93 24 98/62 (74) 99 03/05/19 22:30 97 26 96/61 (73) 99 03/05/19 22:15 93 22 112/64 (80) 100 03/05/19 22:00 92 23 108/68 (81) 99 03/05/19 22:00 108/68 03/05/19 21:45 92 12 115/84 (94) 98 03/05/19 21:32 98 22 35 03/05/19 21:30 92 19 100/84 (89) 99 03/05/19 21:15 91 16 125/52 (76) 97 03/05/19 21:00 92 13 87/55 (66) 97 03/05/19 21:00 87/55 03/05/19 20:30 91 19 86/57 (67) 98 03/05/19 20:00 35 03/05/19 20:00 Mechanical Ventilator 03/05/19 20:00 87 03/05/19 20:00 86/57 03/05/19 20:00 98.4 94 15 92/49 (63) 99 03/05/19 19:33 88 19 100 Mechanical Ventilator 35 89 17 35 03/05/19 19:30 90 18 96/57 (70) 100 03/05/19 19:00 98.1 93 18 92/54 (67) 99 03/05/19 19:00 92/54 03/05/19 18:45 98 27 103/52 (69) 99 03/05/19 18:15 90 24 94/48 (63) 99 03/05/19 18:00 92/54 03/05/19 17:45 92 20 85/59 (68) 99 03/05/19 17:30 96 28 91/56 (68) 99 03/05/19 17:15 94 28 93/46 (62) 98 03/05/19 17:00 92 22 84/42 (56) 99 03/05/19 17:00 84/42 03/05/19 16:51 100 20 35 03/05/19 16:45 95 18 85/58 (67) 100 03/05/19 16:30 94 26 100/48 (65) 100 03/05/19 16:15 96 23 85/57 (66) 100 03/05/19 16:00 Mechanical Ventilator 03/05/19 16:00 97 03/05/19 16:00 87/43 03/05/19 16:00 98.7 96 21 87/43 (58) 99 03/05/19 15:45 90 16 87/48 (61) 99 03/05/19 15:30 96 19 89/47 (61) 99 03/05/19 15:18 91 16 35 03/05/19 15:15 92 24 94/50 (65) 100 03/05/19 15:00 95 25 90/46 (61) 100 03/05/19 15:00 90/46 03/05/19 14:45 95 22 86/49 (61) 98 03/05/19 14:30 94 25 97/56 (70) 99 03/05/19 14:15 102 22 96/45 (62) 98 03/05/19 14:00 93 16 89/50 (63) 98 03/05/19 14:00 89/50 03/05/19 13:45 98 17 75/58 (64) 98 03/05/19 13:30 97 18 104/56 (72) 98 03/05/19 13:15 97 19 97/54 (68) 99 03/05/19 13:12 95 16 99 Mechanical Ventilator 35 89 17 35 03/05/19 13:00 95 16 93/53 (66) 99 03/05/19 13:00 35 03/05/19 13:00 93/53 03/05/19 12:45 98 16 93/53 (66) 98 03/05/19 12:30 92/57 03/05/19 12:30 98 20 92/57 (69) 97 03/05/19 12:15 99 19 109/64 (79) 99 03/05/19 12:00 Mechanical Ventilator 03/05/19 12:00 35 03/05/19 12:00 98.0 96 15 111/56 (74) 99 03/05/19 12:00 111/56 03/05/19 12:00 100 03/05/19 11:47 96/64 03/05/19 11:45 89/56 03/05/19 11:45 100 18 89/56 (67) 99 03/05/19 11:30 101 17 100/51 (67) 98 03/05/19 11:30 100/51 03/05/19 11:15 105 16 106/54 (71) 99 03/05/19 11:15 106/54 03/05/19 11:00 104 16 98 03/05/19 11:00 127/79 03/05/19 11:00 104 16 127/79 (95) 98 03/05/19 10:58 123 20 35 03/05/19 10:00 121/66 03/05/19 10:00 103 16 121/66 (84) 100 03/05/19 09:40 98 03/05/19 09:38 96 18 35 03/05/19 09:30 102 28 108/58 (75) 97 03/05/19 09:28 97 30 35 35 03/05/19 09:04 102 03/05/19 09:00 102 19 102/71 (81) 99 03/05/19 09:00 102/71 Labs: Labs Test 03/04/19 05:17 03/05/19 03:30 03/05/19 08:40 03/06/19 04:00 White Blood Count 12.2 K/UL (4.8-10.8) 12.8 K/UL (4.8-10.8) 9.4 K/UL (4.8-10.8) Red Blood Count 2.85 M/UL (4.20-5.40) 2.94 M/UL (4.20-5.40) 2.59 M/UL (4.20-5.40) Hemoglobin 9.1 G/DL (12.0-16.0) 9.4 G/DL (12.0-16.0) 8.1 G/DL (12.0-16.0) Hematocrit 28.5 % (37.0-47.0) 28.9 % (37.0-47.0) 25.6 % (37.0-47.0) Mean Corpuscular Volume 100 FL (80-99) 98 FL (80-99) 99 FL (80-99) Mean Corpuscular Hemoglobin 32.0 PG (27.0-31.0) 32.1 PG (27.0-31.0) 31.4 PG (27.0-31.0) Mean Corpuscular Hemoglobin Concent 32.0 G/DL (32.0-36.0) 32.6 G/DL (32.0-36.0) 31.8 G/DL (32.0-36.0) Red Cell Distribution Width 18.9 % (11.6-14.8) 18.2 % (11.6-14.8) 18.8 % (11.6-14.8) Platelet Count 72 K/UL (150-450) 75 K/UL (150-450) 62 K/UL (150-450) Mean Platelet Volume 9.1 FL (6.5-10.1) 8.4 FL (6.5-10.1) 7.5 FL (6.5-10.1) Neutrophils (%) (Auto) % (45.0-75.0) % (45.0-75.0) % (45.0-75.0) Lymphocytes (%) (Auto) % (20.0-45.0) % (20.0-45.0) % (20.0-45.0) Monocytes (%) (Auto) % (1.0-10.0) % (1.0-10.0) % (1.0-10.0) Eosinophils (%) (Auto) % (0.0-3.0) % (0.0-3.0) % (0.0-3.0) Basophils (%) (Auto) % (0.0-2.0) % (0.0-2.0) % (0.0-2.0) Differential Total Cells Counted 100 100 100 Neutrophils % (Manual) 82 % (45-75) 90 % (45-75) 95 % (45-75) Lymphocytes % (Manual) 10 % (20-45) 5 % (20-45) 4 % (20-45) Monocytes % (Manual) 6 % (1-10) 5 % (1-10) 1 % (1-10) Eosinophils % (Manual) 1 % (0-3) 0 % (0-3) 0 % (0-3) Basophils % (Manual) 0 % (0-2) 0 % (0-2) 0 % (0-2) Band Neutrophils 1 % (0-8) 0 % (0-8) 0 % (0-8) Platelet Estimate Decreased Decreased Decreased Platelet Morphology Normal Normal Normal Hypochromasia 1+ 1+ Anisocytosis 2+ 1+ 1+ Macrocytosis 1+ 1+ Ovalocytes Occasional Sodium Level 145 MMOL/L (136-145) 145 MMOL/L (136-145) 142 MMOL/L (136-145) 146 MMOL/L (136-145) Potassium Level 3.9 MMOL/L (3.5-5.1) 3.7 MMOL/L (3.5-5.1) 3.6 MMOL/L (3.5-5.1) 3.6 MMOL/L (3.5-5.1) Chloride Level 113 MMOL/L (98-107) 112 MMOL/L (98-107) 112 MMOL/L (98-107) 112 MMOL/L (98-107) Carbon Dioxide Level 25 MMOL/L (21-32) 23 MMOL/L (21-32) 28 MMOL/L (21-32) 24 MMOL/L (21-32) Anion Gap 7 mmol/L (5-15) 10 mmol/L (5-15) 3 mmol/L (5-15) 10 mmol/L (5-15) Blood Urea Nitrogen 33 mg/dL (7-18) 32 mg/dL (7-18) 34 mg/dL (7-18) 37 mg/dL (7-18) Creatinine 1.0 MG/DL (0.55-1.30) 0.9 MG/DL (0.55-1.30) 0.9 MG/DL (0.55-1.30) 0.9 MG/DL (0.55-1.30) Estimat Glomerular Filtration Rate mL/min (>60) mL/min (>60) mL/min (>60) mL/min (>60) Glucose Level 173 MG/DL (74-106) 149 MG/DL (74-106) 155 MG/DL (74-106) 181 MG/DL (74-106) Uric Acid 6.5 MG/DL (2.6-7.2) Calcium Level 7.7 MG/DL (8.5-10.1) 7.7 MG/DL (8.5-10.1) 7.5 MG/DL (8.5-10.1) 7.7 MG/DL (8.5-10.1) Phosphorus Level 2.9 MG/DL (2.5-4.9) Magnesium Level 1.8 MG/DL (1.8-2.4) Total Bilirubin 2.4 MG/DL (0.2-1.0) 2.3 MG/DL (0.2-1.0) 2.4 MG/DL (0.2-1.0) 1.9 MG/DL (0.2-1.0) Direct Bilirubin 1.8 MG/DL (0.0-0.3) 1.7 MG/DL (0.0-0.3) 1.8 MG/DL (0.0-0.3) 1.3 MG/DL (0.0-0.3) Aspartate Amino Transf (AST/SGOT) 80 U/L (15-37) 85 U/L (15-37) 79 U/L (15-37) 55 U/L (15-37) Alanine Aminotransferase (ALT/SGPT) 54 U/L (12-78) 51 U/L (12-78) 58 U/L (12-78) 40 U/L (12-78) Alkaline Phosphatase 203 U/L (46-116) 212 U/L (46-116) 205 U/L (46-116) 162 U/L (46-116) Total Protein 5.4 G/DL (6.4-8.2) 5.3 G/DL (6.4-8.2) 4.9 G/DL (6.4-8.2) 5.4 G/DL (6.4-8.2) Albumin 1.5 G/DL (3.4-5.0) 1.5 G/DL (3.4-5.0) 1.5 G/DL (3.4-5.0) 1.8 G/DL (3.4-5.0) Globulin 3.9 g/dL 3.8 g/dL 3.4 g/dL 3.6 g/dL Albumin/Globulin Ratio 0.4 (1.0-2.7) 0.4 (1.0-2.7) 0.4 (1.0-2.7) 0.5 (1.0-2.7 ) Digoxin Level 2.2 NG/ML (0.9-2.0) 1.5 NG/ML (0.9-2.0) Polychromasia 1+ Erythrocyte Sedimentation Rate 90 MM/HR (0-30) Prothrombin Time 11.4 SEC (9.30-11.50) Prothromb Time International Ratio 1.1 (0.9-1.1) Activated Partial Thromboplast Time 36 SEC (23-33) Amylase Level 145 U/L (25-115) Lipase 862 U/L (73-393) Objective: PHYSICAL EXAMINATION: GENERAL: The patient is a chronically ill-appearing female, on VENT and not weaning yet NECK: Supple. There is a central line in the right subclavian area. HEART: iRRR.without MRG LUNGS: reduced breath sounds with some rhonchi; no wheeze ABDOMEN: Soft, nontender, nondistended. no HSM EXTREMITIES: No clubbing, cyanosis, or edema. NEURO: response to pain skin noted reviewed and edited Accucheck: 72 Jan Anderson MD Mar 06, 2019 08:35
[2019-03-06] MEDS: Digoxin 0.125mg tab NG SCH (08:55)
[2019-03-06] MEDS: Pantoprazole Inj IVP SCH (08:55)
[2019-03-06] MEDS: Spironolactone 25mg tab GT SCH (08:55)
[2019-03-06] MEDS: Midodrine 10mg tab NG SCH ×3 (08:55→17:32)
--- NOTE | 2019-03-06 09:22 | NUR ---
RESPIRATORY NOTE: Attempted to wean pt on CPAP PS 10, 35%FiO2, peep 5. Pt went to tachypneic RR>35bpm, RSBI 196, Vt 286ml, NIF -17, pt using accessory muscle to breathe, getting agitated and resp distress. Placed pt back on AC mode with the same previous settings. Pt calms down, no more SOB or resp distress noted. ANDREINA Gregory made aware. Will continue to monitor.
--- NOTE | 2019-03-06 09:30 | NUR ---
NURSE NOTES: RT attempted to wean pt on CPAP PS 10, 35%FiO2, peep 5. Within 5 minutes, Pt went tachypneic RR >35bpm. Placed pt back on AC mode with previous settings. TF resumed.
--- NOTE | 2019-03-06 09:50 | NUR ---
*-* INSURANCE *-* ALL CLINICALS AND REVIEWS HAVE BEEN FAXED TO: MARGARITA Clement Ref#[id number] CM: Dung #[phone] ext [phone] fax#[phone]
--- NOTE | 2019-03-06 10:35 | NUR ---
CASE MANAGEMENT:REVIEW 03/06/19 SI: SEPTIC SHOCK. RENAL FAILURE AFIB W/RVR. CARDIOMYOPATHY. INTUBATED 97.6 81 16 86/50 100% on vent support IS: LEVOPHED GTT IV SOLUCORTEF Q8HRS ALDACTONE GT QD MIDODRINE NG TID DIGOXIN NG QD IV PROTONIX Q12 : ICU STATUS DCP: FROM [facility] CARE PLAN: BP SUPPORT WEAN FROM VENT
--- NOTE | 2019-03-06 10:50 | NUR ---
NURSE NOTES: Pt currently NPO, tube feeds turned off, for trach procedure today, as per Dr. Heller.
[2019-03-06] MEDS ORDERED: Tubing IV Secondary IV ONE ×2 (11:05)
[2019-03-06] MEDS ORDERED: NS 275ml ONE ×2 (11:05)
--- NOTE | 2019-03-06 11:10 | Pre-Procedure Note/Attestation ---
Pre-Procedure Note/Attestation Complete Prior to Procedure Procedure Narrative: tracheostomy Indications for Procedure Pre-Operative Diagnosis: respiratory insufficiency Attestation I attest that I discussed the nature of the procedure; its benefits; risks and complications; and alternatives (and the risks and benefits of such alternatives ), prior to the procedure, with the patient (or the patient's legal wine sales representative). I attest that, if there was a reasonable possibility of needing a blood transfusion, the patient (or the patient's legal wine sales representative) was given the [facility] standardized written summary, pursuant to the Francisco Enrique Blood Safety Act ([place] Health and Safety Code # 1645, as amended). I attest that I re-evaluated the patient just prior to the surgery and that there has been no change in the patient's H&P, except as documented below: Tristan Heller Mar 06, 2019 11:10
--- NOTE | 2019-03-06 11:24 | Infectious Diseases Prog Note ---
Assessment/Plan Assessment/Plan antibiotics ; flagyl A 1. pneumonia 2. fungal UTI s/p rx 3. renal failure 4. septic shock 5. CHF 6. dementia 7. thrombocytopenia 8. respiratory failure P 1. continue flagyl 2. stool for c.diff 3. will follow up cultures Subjective ROS Limited/Unobtainable: Yes Allergies: Coded Allergies: No Known Allergies (Unverified , 02/19/19) Objective Vital Signs Last 24 Hour Vital Signs Date Time Temp Pulse Resp B/P (MAP) Pulse Ox O2 Delivery O2 Flow Rate FiO2 03/06/19 11:00 78 16 87/53 (64) 100 03/06/19 10:45 82 21 35 03/06/19 10:00 83 16 93/52 (66) 100 03/06/19 09:22 86 20 35 03/06/19 09:22 97 03/06/19 09:00 82 20 94/48 (63) 98 03/06/19 08:55 82 03/06/19 08:00 97.6 81 16 86/50 (62) 100 03/06/19 08:00 Mechanical Ventilator 03/06/19 08:00 35 03/06/19 07:52 82 03/06/19 07:37 82 16 100 Mechanical Ventilator 35 80 16 35 03/06/19 07:15 85 19 104/52 (69) 100 03/06/19 07:00 82 17 90/51 (64) 100 03/06/19 06:30 83 17 95/49 (64) 100 03/06/19 06:15 81 18 100/52 (68) 100 03/06/19 06:00 83 17 104/60 (75) 98 03/06/19 05:45 82 18 91/53 (66) 100 03/06/19 05:30 81 17 93/54 (67) 100 03/06/19 05:15 83 16 35 03/06/19 05:15 82 15 88/48 (61) 98 03/06/19 05:00 80 16 94/50 (65) 98 03/06/19 05:00 94/50 03/06/19 04:45 81 15 91/47 (62) 100 03/06/19 04:30 82 16 95/48 (64) 96 03/06/19 04:00 Mechanical Ventilator 03/06/19 04:00 35 03/06/19 04:00 82/49 03/06/19 04:00 82 03/06/19 04:00 98.2 82 17 82/49 (60) 96 03/06/19 03:30 91 17 103/59 (74) 03/06/19 03:15 87 18 35 03/06/19 03:00 94 21 124/46 (72) 100 03/06/19 03:00 85/49 03/06/19 02:30 89 20 99/65 (76) 95 03/06/19 02:00 103/61 03/06/19 02:00 89 21 103/61 (75) 97 03/06/19 01:30 90 17 90/50 (63) 100 03/06/19 01:26 105 16 35 03/06/19 01:15 90 18 78/51 (60) 97 03/06/19 01:00 86 17 92/46 (61) 96 03/06/19 01:00 92/46 03/06/19 00:45 88 17 83/46 (58) 96 03/06/19 00:30 89 19 89/43 (58) 95 03/06/19 00:15 90 20 87/46 (60) 96 03/06/19 00:00 95 03/06/19 00:00 35 03/06/19 00:00 Mechanical Ventilator 03/06/19 00:00 86/51 03/06/19 00:00 99.1 92 21 86/51 (63) 95 03/05/19 23:45 91 13 106/61 (76) 97 03/05/19 23:30 93 25 127/48 (74) 99 03/05/19 23:15 94 21 115/59 (77) 100 03/05/19 23:00 113/59 03/05/19 23:00 95 27 113/59 (77) 100 03/05/19 22:54 93 24 35 03/05/19 22:45 93 24 98/62 (74) 99 03/05/19 22:30 97 26 96/61 (73) 99 03/05/19 22:15 93 22 112/64 (80) 100 03/05/19 22:00 92 23 108/68 (81) 99 03/05/19 22:00 108/68 03/05/19 21:45 92 12 115/84 (94) 98 03/05/19 21:32 98 22 35 03/05/19 21:30 92 19 100/84 (89) 99 03/05/19 21:15 91 16 125/52 (76) 97 03/05/19 21:00 92 13 87/55 (66) 97 03/05/19 21:00 87/55 03/05/19 20:30 91 19 86/57 (67) 98 03/05/19 20:00 35 03/05/19 20:00 Mechanical Ventilator 03/05/19 20:00 87 03/05/19 20:00 86/57 03/05/19 20:00 98.4 94 15 92/49 (63) 99 03/05/19 19:33 88 19 100 Mechanical Ventilator 35 89 17 35 03/05/19 19:30 90 18 96/57 (70) 100 03/05/19 19:00 98.1 93 18 92/54 (67) 99 03/05/19 19:00 92/54 03/05/19 18:45 98 27 103/52 (69) 99 03/05/19 18:15 90 24 94/48 (63) 99 03/05/19 18:00 92/54 03/05/19 17:45 92 20 85/59 (68) 99 03/05/19 17:30 96 28 91/56 (68) 99 03/05/19 17:15 94 28 93/46 (62) 98 03/05/19 17:00 92 22 84/42 (56) 99 03/05/19 17:00 84/42 03/05/19 16:51 100 20 35 03/05/19 16:45 95 18 85/58 (67) 100 03/05/19 16:30 94 26 100/48 (65) 100 03/05/19 16:15 96 23 85/57 (66) 100 03/05/19 16:00 Mechanical Ventilator 03/05/19 16:00 97 03/05/19 16:00 87/43 03/05/19 16:00 98.7 96 21 87/43 (58) 99 03/05/19 15:45 90 16 87/48 (61) 99 03/05/19 15:30 96 19 89/47 (61) 99 11/25/19 15:18 91 16 35 03/05/19 15:15 92 24 94/50 (65) 100 03/05/19 15:00 95 25 90/46 (61) 100 03/05/19 15:00 90/46 03/05/19 14:45 95 22 86/49 (61) 98 03/05/19 14:30 94 25 97/56 (70) 99 03/05/19 14:15 102 22 96/45 (62) 98 03/05/19 14:00 93 16 89/50 (63) 98 03/05/19 14:00 89/50 03/05/19 13:45 98 17 75/58 (64) 98 03/05/19 13:30 97 18 104/56 (72) 98 03/05/19 13:15 97 19 97/54 (68) 99 03/05/19 13:12 95 16 99 Mechanical Ventilator 35 89 17 35 03/05/19 13:00 95 16 93/53 (66) 99 03/05/19 13:00 35 03/05/19 13:00 93/53 03/05/19 12:45 98 16 93/53 (66) 98 03/05/19 12:30 92/57 03/05/19 12:30 98 20 92/57 (69) 97 03/05/19 12:15 99 19 109/64 (79) 99 03/05/19 12:00 Mechanical Ventilator 03/05/19 12:00 35 03/05/19 12:00 98.0 96 15 111/56 (74) 99 03/05/19 12:00 111/56 03/05/19 12:00 100 03/05/19 11:47 96/64 03/05/19 11:45 89/56 03/05/19 11:45 100 18 89/56 (67) 99 03/05/19 11:30 101 17 100/51 (67) 98 03/05/19 11:30 100/51 Height (Feet): 5 Height (Inches): 6.00 Weight (Pounds): 163 HEENT: other - intubated Respiratory/Chest: lungs clear Cardiovascular: normal rate, regular rhythm, no gallop/murmur Abdomen: soft, non tender, other - Gt Extremities: no edema, other - left arm PICC Laboratory Tests Test 03/06/19 04:00 White Blood Count 9.4 K/UL (4.8-10.8) Red Blood Count 2.59 M/UL (4.20-5.40) L Hemoglobin 8.1 G/DL (12.0-16.0) L Hematocrit 25.6 % (37.0-47.0) L Mean Corpuscular Volume 99 FL (80-99) Mean Corpuscular Hemoglobin 31.4 PG (27.0-31.0) H Mean Corpuscular Hemoglobin Concent 31.8 G/DL (32.0-36.0) L Red Cell Distribution Width 18.8 % (11.6-14.8) H Platelet Count 62 K/UL (150-450) L Mean Platelet Volume 7.5 FL (6.5-10.1) Neutrophils (%) (Auto) % (45.0-75.0) Lymphocytes (%) (Auto) % (20.0-45.0) Monocytes (%) (Auto) % (1.0-10.0) Eosinophils (%) (Auto) % (0.0-3.0) Basophils (%) (Auto) % (0.0-2.0) Differential Total Cells Counted 100 Neutrophils % (Manual) 95 % (45-75) H Lymphocytes % (Manual) 4 % (20-45) L Monocytes % (Manual) 1 % (1-10) Eosinophils % (Manual) 0 % (0-3) Basophils % (Manual) 0 % (0-2) Band Neutrophils 0 % (0-8) Platelet Estimate Decreased L Platelet Morphology Normal Anisocytosis 1+ Sodium Level 146 MMOL/L (136-145) H Potassium Level 3.6 MMOL/L (3.5-5.1) Chloride Level 112 MMOL/L (98-107) H Carbon Dioxide Level 24 MMOL/L (21-32) Anion Gap 10 mmol/L (5-15) Blood Urea Nitrogen 37 mg/dL (7-18) H Creatinine 0.9 MG/DL (0.55-1.30) Estimat Glomerular Filtration Rate mL/min (>60) Glucose Level 181 MG/DL (74-106) H Calcium Level 7.7 MG/DL (8.5-10.1) L Total Bilirubin 1.9 MG/DL (0.2-1.0) H Direct Bilirubin 1.3 MG/DL (0.0-0.3) H Aspartate Amino Transf (AST/SGOT) 55 U/L (15-37) H Alanine Aminotransferase (ALT/SGPT) 40 U/L (12-78) Alkaline Phosphatase 162 U/L (46-116) H Total Protein 5.4 G/DL (6.4-8.2) L Albumin 1.8 G/DL (3.4-5.0) L Globulin 3.6 g/dL Albumin/Globulin Ratio 0.5 (1.0-2.7) L Current Medications Medications (Trade) Dose Ordered Sig/Pam Route PRN Reason Start Time Stop Time Status Last Admin Dose Admin Acetaminophen (Tylenol) 650 mg Q4H PRN GT Mild Pain/Temp > 100.5 03/04/19 11:00 03/21/19 17:14 Acetylcysteine (Mucomyst) 100 mg TIDRT HHN 03/04/19 09:15 04/03/19 09:14 03/06/19 07:25 Albuterol/ Ipratropium (Albuterol/ Ipratropium) 3 ml Q4H PRN HHN Shortness of Breath 03/04/19 09:45 03/09/19 09:44 03/06/19 07:25 Chlorhexidine Gluconate (Dayna-Hex 2%) 1 applic DAILY@2000 TOPIC 02/20/19 20:00 03/22/19 19:59 03/05/19 20:26 Digoxin (Lanoxin) 0.125 mg DAILY NG 03/04/19 09:00 04/03/19 08:59 03/06/19 08:55 Hydrocortisone (Solu-CORTEF) 50 mg Q8H IV 03/05/19 09:00 04/04/19 08:59 03/06/19 08:55 Metronidazole (Flagyl) 500 mg Q8HR GT 03/04/19 14:00 03/11/19 13:59 03/06/19 05:18 Midodrine (Pro-Amatine) 10 mg THREE TIMES A DAY NG 03/05/19 09:00 04/04/19 08:59 03/06/19 08:55 Norepinephrine Bitartrate 8 mg/ Dextrose 250 ml @ 0 mls/hr Q24H IV 03/03/19 08:30 04/02/19 08:29 03/05/19 11:47 Pantoprazole (Protonix) 40 mg Q12HR IVP 02/20/19 21:00 03/21/19 17:59 03/06/19 08:55 Spironolactone (Aldactone) 25 mg DAILY GT 03/05/19 09:00 04/03/19 10:29 03/06/19 08:55 Shelbie Howell MD Mar 06, 2019 11:24
--- NOTE | 2019-03-06 11:57 | NUR ---
RD ASSESSMENT & RECOMMENDATIONS SEE CARE ACTIVITY FOR COMPLETE ASSESSMENT DAILY ESTIMATED NEEDS: Needs based on CRITICAL CARE, Sepsis, wound/ 51.4kg 22-30 kcals/kg 7268-4783 total kcals 1.25-2 g protein/kg 64-102 g total protein 25-30 mL/kg 6345-6005 total fluid mLs NUTRITION DIAGNOSIS: * Swallowing difficulty R/T dysphagia, respiratory status as evidenced by h/o PEG, on GT feeding + oral grat on texture modified diet [employer], pt now orally intubated, on tube feeds, now pending trach placement. * Increased kcal/prot needs R/T sepsis as evidenced by elev wbc -> now wnl, now afebrile, elev RR -> wnl, elev HR -> now wnl, elev LA (11.8 -> now wnl), hypotensive, pressor suppsort held CURRENT TF:Vital AF 1.2 @50ml/hr x 24 hrs -> HELD FOR TRACH THIS AM ENTERAL NUTRITION RECOMMENDATIONS: Vital AF 1.2 @ 50ml/hr x 24 hrs to provide 1050ml, 1260kcal, 78g prot, 851ml free water * WITH HEMODYNAMIC STABILITY -> Maintain Vital AF 1.2 at goal rate of 50ml/hr x 24 hrs -> HOB over 30 degrees/ water flush 150ml q 6 hrs * WITHOUT HEMODYNAMIC STABILITY -> rec trophic feeds of Vital AF 1.2 @ 10ml/hr x 24 hrs ADDITIONAL RECOMMENDATIONS: * RECALIBRATED BEDSCALE WT Per SNF, HT=65", [id number] (02/14/19) VS EMR [id number] * Monitor hemodynamic stability: pressor support held * Monitor lytes closely, replete as needed * Wound healing: add Vit C 250mg QD + Beni 1pkt BID * Rec NISS for BG control: BGs elev (181, 155, 149), on steroidal med .
--- NOTE | 2019-03-06 12:20 | Nephrology Progress Note ---
Assessment/Plan Problem List: (1) Acute respiratory failure (2) Septic shock (3) Renal failure (4) Atrial fibrillation with rapid ventricular response (5) Cardiomyopathy Assessment Renal failure - ? Acute on Chronic, Partly dehydration Septic Shock UTI AT Fib with FVR h/o DM, proteinuria , HypoAlbuminemia Plan Kayexelaate as needed dig IV one dose given previously Midodrine K and Mag supplement as needed pulm support per consultants previously: stop NS intubated On 2 pressors BP remains low Poor prognosis - remains full code for now slow Hydrate 2D echo EjFx 40% antibiotics monitor renal parameters avoid nephrotoxics per orders Subjective ROS Limited/Unobtainable: Yes Objective Objective Last 24 Hour Vital Signs Date Time Temp Pulse Resp B/P (MAP) Pulse Ox O2 Delivery O2 Flow Rate FiO2 03/06/19 11:00 78 16 87/53 (64) 100 03/06/19 10:45 82 21 35 03/06/19 10:00 83 16 93/52 (66) 100 03/06/19 09:22 86 20 35 03/06/19 09:22 97 03/06/19 09:00 82 20 94/48 (63) 98 03/06/19 08:55 82 03/06/19 08:00 97.6 81 16 86/50 (62) 100 03/06/19 08:00 Mechanical Ventilator 03/06/19 08:00 35 03/06/19 07:52 82 03/06/19 07:37 82 16 100 Mechanical Ventilator 35 80 16 35 03/06/19 07:15 85 19 104/52 (69) 100 03/06/19 07:00 82 17 90/51 (64) 100 03/06/19 06:30 83 17 95/49 (64) 100 03/06/19 06:15 81 18 100/52 (68) 100 03/06/19 06:00 83 17 104/60 (75) 98 03/06/19 05:45 82 18 91/53 (66) 100 03/06/19 05:30 81 17 93/54 (67) 100 03/06/19 05:15 83 16 35 03/06/19 05:15 82 15 88/48 (61) 98 03/06/19 05:00 80 16 94/50 (65) 98 03/06/19 05:00 94/50 03/06/19 04:45 81 15 91/47 (62) 100 03/06/19 04:30 82 16 95/48 (64) 96 03/06/19 04:00 Mechanical Ventilator 03/06/19 04:00 35 03/06/19 04:00 82/49 03/06/19 04:00 82 03/06/19 04:00 98.2 82 17 82/49 (60) 96 03/06/19 03:30 91 17 103/59 (74) 03/06/19 03:15 87 18 35 03/06/19 03:00 94 21 124/46 (72) 100 03/06/19 03:00 85/49 03/06/19 02:30 89 20 99/65 (76) 95 03/06/19 02:00 103/61 03/06/19 02:00 89 21 103/61 (75) 97 03/06/19 01:30 90 17 90/50 (63) 100 03/06/19 01:26 105 16 35 03/06/19 01:15 90 18 78/51 (60) 97 03/06/19 01:00 86 17 92/46 (61) 96 03/06/19 01:00 92/46 03/06/19 00:45 88 17 83/46 (58) 96 03/06/19 00:30 89 19 89/43 (58) 95 03/06/19 00:15 90 20 87/46 (60) 96 03/06/19 00:00 95 03/06/19 00:00 35 03/06/19 00:00 Mechanical Ventilator 03/06/19 00:00 86/51 03/06/19 00:00 99.1 92 21 86/51 (63) 95 03/05/19 23:45 91 13 106/61 (76) 97 03/05/19 23:30 93 25 127/48 (74) 99 03/05/19 23:15 94 21 115/59 (77) 100 03/05/19 23:00 113/59 03/05/19 23:00 95 27 113/59 (77) 100 03/05/19 22:54 93 24 35 03/05/19 22:45 93 24 98/62 (74) 99 03/05/19 22:30 97 26 96/61 (73) 99 03/05/19 22:15 93 22 112/64 (80) 100 03/05/19 22:00 92 23 108/68 (81) 99 03/05/19 22:00 108/68 03/05/19 21:45 92 12 115/84 (94) 98 03/05/19 21:32 98 22 35 03/05/19 21:30 92 19 100/84 (89) 99 03/05/19 21:15 91 16 125/52 (76) 97 03/05/19 21:00 92 13 87/55 (66) 97 03/05/19 21:00 87/55 03/05/19 20:30 91 19 86/57 (67) 98 03/05/19 20:00 35 03/05/19 20:00 Mechanical Ventilator 03/05/19 20:00 87 03/05/19 20:00 86/57 03/05/19 20:00 98.4 94 15 92/49 (63) 99 03/05/19 19:33 88 19 100 Mechanical Ventilator 35 89 17 35 03/05/19 19:30 90 18 96/57 (70) 100 03/05/19 19:00 98.1 93 18 92/54 (67) 99 03/05/19 19:00 92/54 03/05/19 18:45 98 27 103/52 (69) 99 03/05/19 18:15 90 24 94/48 (63) 99 03/05/19 18:00 92/54 03/05/19 17:45 92 20 85/59 (68) 99 03/05/19 17:30 96 28 91/56 (68) 99 03/05/19 17:15 94 28 93/46 (62) 98 03/05/19 17:00 92 22 84/42 (56) 99 03/05/19 17:00 84/42 03/05/19 16:51 100 20 35 03/05/19 16:45 95 18 85/58 (67) 100 03/05/19 16:30 94 26 100/48 (65) 100 03/05/19 16:15 96 23 85/57 (66) 100 03/05/19 16:00 Mechanical Ventilator 03/05/19 16:00 97 03/05/19 16:00 87/43 03/05/19 16:00 98.7 96 21 87/43 (58) 99 03/05/19 15:45 90 16 87/48 (61) 99 03/05/19 15:30 96 19 89/47 (61) 99 03/05/19 15:18 91 16 35 03/05/19 15:15 92 24 94/50 (65) 100 03/05/19 15:00 95 25 90/46 (61) 100 03/05/19 15:00 90/46 03/05/19 14:45 95 22 86/49 (61) 98 03/05/19 14:30 94 25 97/56 (70) 99 03/05/19 14:15 102 22 96/45 (62) 98 03/05/19 14:00 93 16 89/50 (63) 98 03/05/19 14:00 89/50 03/05/19 13:45 98 17 75/58 (64) 98 03/05/19 13:30 97 18 104/56 (72) 98 03/05/19 13:15 97 19 97/54 (68) 99 03/05/19 13:12 95 16 99 Mechanical Ventilator 35 89 17 35 03/05/19 13:00 95 16 93/53 (66) 99 03/05/19 13:00 35 03/05/19 13:00 93/53 03/05/19 12:45 98 16 93/53 (66) 98 03/05/19 12:30 92/57 03/05/19 12:30 98 20 92/57 (69) 97 Intake and Output 03/05/19 03/06/19 18:59 06:59 Intake Total 640.2500 ml 799.63 ml Output Total 400 ml 175 ml Balance 240.2500 ml 624.63 ml Free Water 80 ml IV Total 140.2500 ml 119.63 ml Tube Feeding 500 ml 600 ml Output Urine Total 350 ml 175 ml Stool Total 50 ml Laboratory Tests 03/06/19 04:00: White Blood Count 9.4, Red Blood Count 2.59L, Hemoglobin 8.1L, Hematocrit 25.6L , Mean Corpuscular Volume 99, Mean Corpuscular Hemoglobin 31.4H, Mean Corpuscular Hemoglobin Concent 31.8L, Red Cell Distribution Width 18.8H, Platelet Count 62L, Mean Platelet Volume 7.5, Neutrophils (%) (Auto) , Lymphocytes (%) (Auto) , Monocytes (%) (Auto) , Eosinophils (%) (Auto) , Basophils (%) (Auto) , Differential Total Cells Counted 100, Neutrophils % ( Manual) 95H, Lymphocytes % (Manual) 4L, Monocytes % (Manual) 1, Eosinophils % ( Manual) 0, Basophils % (Manual) 0, Band Neutrophils 0, Platelet Estimate DecreasedL, Platelet Morphology Normal, Anisocytosis 1+, Sodium Level 146H, Potassium Level 3.6, Chloride Level 112H, Carbon Dioxide Level 24, Anion Gap 10 , Blood Urea Nitrogen 37H, Creatinine 0.9, Estimat Glomerular Filtration Rate , Glucose Level 181H, Calcium Level 7.7L, Total Bilirubin 1.9H, Direct Bilirubin 1.3H, Aspartate Amino Transf (AST/SGOT) 55H, Alanine Aminotransferase (ALT/SGPT ) 40, Alkaline Phosphatase 162H, Total Protein 5.4L, Albumin 1.8L, Globulin 3.6 , Albumin/Globulin Ratio 0.5L Height (Feet): 5 Height (Inches): 5.00 Weight (Pounds): 163 General Appearance: no apparent distress EENT: other - vented Cardiovascular: normal rate Respiratory/Chest: decreased breath sounds Abdomen: distended Objective no change Jt Louis MD Mar 06, 2019 12:20
[2019-03-06] MEDS ORDERED: fentaNYL 100 mcg/2 mL IV ONE (12:57)
[2019-03-06] MEDS ORDERED: Lidocaine 1% 10mg/ml/Epi 0.005mg/ml 30ml vial INJ ONE (13:11)
[2019-03-06] MEDS ORDERED: Rocuronium Bromide 50mg/5ml Inj IV ONE (13:28)
[2019-03-06] MEDS ORDERED: NS Irrig 1000ml ONE (13:30)
[2019-03-06] MEDS ORDERED: Sterile Water Irrig 1000ml IRRIG ONE (13:30)
[2019-03-06] MEDS ORDERED: Propofol 200mg/20ml IV ONE (13:30)
[2019-03-06] MEDS ORDERED: Midazolam 2mg/2ml Inj ONE (13:37)
--- NOTE | 2019-03-06 14:14 | Brief Operative Note ---
Immediate Post Operative Note Operative Note Pre-op Diagnosis: respiratory insufficiency Procedure: tracheostomy Post-op Diagnosis: same as pre-op Surgeon: richar Anesthesiologist: shawn Anesthesia: general, local Specimen: none Complications: none Condition: stable Fluids: see records Estimated Blood Loss: minimal Drains: none Implant(s) used?: No Tristan Heller Mar 06, 2019 14:14
--- NOTE | 2019-03-06 14:15 | Surgery Progress Note ---
Surgery Progress Note Subjective Procedure Performed tracheostomy Additional Comments no acute events polst reviewed. full code and all life sustaining measures discussed with team plan for trach today Objective Last 24 Hour Vital Signs Date Time Temp Pulse Resp B/P (MAP) Pulse Ox O2 Delivery O2 Flow Rate FiO2 03/06/19 13:13 82 18 100 Mechanical Ventilator 35 85 16 35 03/06/19 13:00 77 17 93/48 (63) 100 03/06/19 12:30 80 17 95/54 (68) 96 03/06/19 12:00 35 03/06/19 12:00 97.8 79 18 99/48 (65) 98 03/06/19 12:00 Mechanical Ventilator 03/06/19 11:31 83 03/06/19 11:00 78 16 87/53 (64) 100 03/06/19 10:45 82 21 35 03/06/19 10:00 83 16 93/52 (66) 100 03/06/19 09:22 86 20 35 03/06/19 09:22 97 03/06/19 09:00 82 20 94/48 (63) 98 03/06/19 08:55 82 03/06/19 08:00 97.6 81 16 86/50 (62) 100 03/06/19 08:00 Mechanical Ventilator 03/06/19 08:00 35 03/06/19 07:52 82 03/06/19 07:37 82 16 100 Mechanical Ventilator 35 80 16 35 03/06/19 07:15 85 19 104/52 (69) 100 03/06/19 07:00 82 17 90/51 (64) 100 03/06/19 06:30 83 17 95/49 (64) 100 03/06/19 06:15 81 18 100/52 (68) 100 03/06/19 06:00 83 17 104/60 (75) 98 03/06/19 05:45 82 18 91/53 (66) 100 03/06/19 05:30 81 17 93/54 (67) 100 03/06/19 05:15 83 16 35 03/06/19 05:15 82 15 88/48 (61) 98 03/06/19 05:00 80 16 94/50 (65) 98 03/06/19 05:00 94/50 03/06/19 04:45 81 15 91/47 (62) 100 03/06/19 04:30 82 16 95/48 (64) 96 03/06/19 04:00 Mechanical Ventilator 03/06/19 04:00 35 03/06/19 04:00 82/49 03/06/19 04:00 82 03/06/19 04:00 98.2 82 17 82/49 (60) 96 03/06/19 03:30 91 17 103/59 (74) 03/06/19 03:15 87 18 35 03/06/19 03:00 94 21 124/46 (72) 100 03/06/19 03:00 85/49 03/06/19 02:30 89 20 99/65 (76) 95 03/06/19 02:00 103/61 03/06/19 02:00 89 21 103/61 (75) 97 03/06/19 01:30 90 17 90/50 (63) 100 03/06/19 01:26 105 16 35 03/06/19 01:15 90 18 78/51 (60) 97 03/06/19 01:00 86 17 92/46 (61) 96 03/06/19 01:00 92/46 03/06/19 00:45 88 17 83/46 (58) 96 03/06/19 00:30 89 19 89/43 (58) 95 03/06/19 00:15 90 20 87/46 (60) 96 03/06/19 00:00 95 03/06/19 00:00 35 03/06/19 00:00 Mechanical Ventilator 03/06/19 00:00 86/51 03/06/19 00:00 99.1 92 21 86/51 (63) 95 03/05/19 23:45 91 13 106/61 (76) 97 03/05/19 23:30 93 25 127/48 (74) 99 03/05/19 23:15 94 21 115/59 (77) 100 03/05/19 23:00 113/59 03/05/19 23:00 95 27 113/59 (77) 100 03/05/19 22:54 93 24 35 03/05/19 22:45 93 24 98/62 (74) 99 03/05/19 22:30 97 26 96/61 (73) 99 03/05/19 22:15 93 22 112/64 (80) 100 03/05/19 22:00 92 23 108/68 (81) 99 03/05/19 22:00 108/68 03/05/19 21:45 92 12 115/84 (94) 98 03/05/19 21:32 98 22 35 03/05/19 21:30 92 19 100/84 (89) 99 03/05/19 21:15 91 16 125/52 (76) 97 03/05/19 21:00 92 13 87/55 (66) 97 03/05/19 21:00 87/55 03/05/19 20:30 91 19 86/57 (67) 98 03/05/19 20:00 35 03/05/19 20:00 Mechanical Ventilator 03/05/19 20:00 87 03/05/19 20:00 86/57 03/05/19 20:00 98.4 94 15 92/49 (63) 99 03/05/19 19:33 88 19 100 Mechanical Ventilator 35 89 17 35 03/05/19 19:30 90 18 96/57 (70) 100 03/05/19 19:00 98.1 93 18 92/54 (67) 99 03/05/19 19:00 92/54 03/05/19 18:45 98 27 103/52 (69) 99 03/05/19 18:15 90 24 94/48 (63) 99 03/05/19 18:00 92/54 03/05/19 17:45 92 20 85/59 (68) 99 03/05/19 17:30 96 28 91/56 (68) 99 03/05/19 17:15 94 28 93/46 (62) 98 03/05/19 17:00 92 22 84/42 (56) 99 03/05/19 17:00 84/42 03/05/19 16:51 100 20 35 03/05/19 16:45 95 18 85/58 (67) 100 03/05/19 16:30 94 26 100/48 (65) 100 03/05/19 16:15 96 23 85/57 (66) 100 03/05/19 16:00 Mechanical Ventilator 03/05/19 16:00 97 03/05/19 16:00 87/43 03/05/19 16:00 98.7 96 21 87/43 (58) 99 03/05/19 15:45 90 16 87/48 (61) 99 03/05/19 15:30 96 19 89/47 (61) 99 03/05/19 15:18 91 16 35 03/05/19 15:15 92 24 94/50 (65) 100 03/05/19 15:00 95 25 90/46 (61) 100 03/05/19 15:00 90/46 03/05/19 14:45 95 22 86/49 (61) 98 03/05/19 14:30 94 25 97/56 (70) 99 03/05/19 14:15 102 22 96/45 (62) 98 I&O Intake and Output 03/05/19 03/06/19 18:59 06:59 Intake Total 640.2500 ml 799.63 ml Output Total 400 ml 175 ml Balance 240.2500 ml 624.63 ml Free Water 80 ml IV Total 140.2500 ml 119.63 ml Tube Feeding 500 ml 600 ml Output Urine Total 350 ml 175 ml Stool Total 50 ml Dressing: other Wound: other Drains: other Cardiovascular: RSR Respiratory: decreased breath sounds Abdomen: soft, present bowel sounds Extremities: no cyanosis, other Laboratory Tests Test 03/06/19 04:00 White Blood Count 9.4 K/UL (4.8-10.8) Red Blood Count 2.59 M/UL (4.20-5.40) L Hemoglobin 8.1 G/DL (12.0-16.0) L Hematocrit 25.6 % (37.0-47.0) L Mean Corpuscular Volume 99 FL (80-99) Mean Corpuscular Hemoglobin 31.4 PG (27.0-31.0) H Mean Corpuscular Hemoglobin Concent 31.8 G/DL (32.0-36.0) L Red Cell Distribution Width 18.8 % (11.6-14.8) H Platelet Count 62 K/UL (150-450) L Mean Platelet Volume 7.5 FL (6.5-10.1) Neutrophils (%) (Auto) % (45.0-75.0) Lymphocytes (%) (Auto) % (20.0-45.0) Monocytes (%) (Auto) % (1.0-10.0) Eosinophils (%) (Auto) % (0.0-3.0) Basophils (%) (Auto) % (0.0-2.0) Differential Total Cells Counted 100 Neutrophils % (Manual) 95 % (45-75) H Lymphocytes % (Manual) 4 % (20-45) L Monocytes % (Manual) 1 % (1-10) Eosinophils % (Manual) 0 % (0-3) Basophils % (Manual) 0 % (0-2) Band Neutrophils 0 % (0-8) Platelet Estimate Decreased L Platelet Morphology Normal Anisocytosis 1+ Sodium Level 146 MMOL/L (136-145) H Potassium Level 3.6 MMOL/L (3.5-5.1) Chloride Level 112 MMOL/L (98-107) H Carbon Dioxide Level 24 MMOL/L (21-32) Anion Gap 10 mmol/L (5-15) Blood Urea Nitrogen 37 mg/dL (7-18) H Creatinine 0.9 MG/DL (0.55-1.30) Estimat Glomerular Filtration Rate mL/min (>60) Glucose Level 181 MG/DL (74-106) H Calcium Level 7.7 MG/DL (8.5-10.1) L Total Bilirubin 1.9 MG/DL (0.2-1.0) H Direct Bilirubin 1.3 MG/DL (0.0-0.3) H Aspartate Amino Transf (AST/SGOT) 55 U/L (15-37) H Alanine Aminotransferase (ALT/SGPT) 40 U/L (12-78) Alkaline Phosphatase 162 U/L (46-116) H Total Protein 5.4 G/DL (6.4-8.2) L Albumin 1.8 G/DL (3.4-5.0) L Globulin 3.6 g/dL Albumin/Globulin Ratio 0.5 (1.0-2.7) L Plan Problems: (1) Septic shock Assessment & Plan: 78-year-old female in septic shock in the intensive care unit on pressors. Leukocytosis, anemia, abnormal labs. Tachycardic. On respiratory support. On examination patient identified to have slowed capillary refill in the distal extremities. Patient furthermore identified to have a weeping wound in the right great toe. Patient is currently very ill and septic and requiring pressors. Unfortunately given her medical condition comorbidities and history there is potential for distal vasoconstriction and potentially even necrosis of the distal aspects but further life-saving measures pressors currently required and necessary and indicated. wound re-evaluated. necrotic epidermal tissue sloth off but underlying tissues with backbleeding. motor noted spont in foot and toes We will continue to monitor extremities and evaluate them. Will wean off pressors as possible. Lactic acidosis improving. Continue IV antibiotics Wean pressors prognosis guarded labs slowly improving now still ill and guarded trach today polst reviewed Appreciate ICU care and management We will follow with recommendations (2) Abdominal pain Assessment & Plan: Chronic liver disease/cirrhosis with signs of portal hypertension including moderate ascites and hepatofugal flow in the portal vein. Gallbladder wall edema nonspecific Bilateral pleural effusions. Medical renal disease Findings: There is extensive artifact from the patient's arms limiting evaluation. Oral contrast was given. Gastrostomy tube is noted in good position. There are small bilateral pleural effusions present with adjacent ill-defined parenchymal density either atelectasis or pneumonia. Correlate clinically. Small pericardial effusion is present and there is generalized cardiomegaly present. Hiatal hernia noted. Aorta and coronary artery calcification present. Mild ascites is demonstrated. No compelling evidence for bowel obstruction. There is extensive diverticulosis involving the colon without obvious diverticulitis. Generalized anasarca noted. The appendix is not seen. The kidneys show no obvious hydronephrosis. The right kidney appears atrophic. There is a suggestion of cysts within the right kidney but this is grossly limited in terms of visualization. The gallbladder is demonstrated. The rectum appears low in location suggestive of prolapse and with a moderate degree of fecal retention. IMPRESSION: Limited evaluation due to artifact. Mild to moderate ascites Trace bilateral pleural effusions. Basilar atelectasis and/or infiltrate. Trace pericardial effusion Generalized cardiomegaly. Atherosclerotic vascular disease Extensive diverticulosis of the colon. No definite diverticulitis. Anasarca Gross catheter Query rectal prolapse reviewed US again lft's cont to rise likely liver decompensation trend (3) Severe sepsis Tristan Heller Mar 06, 2019 14:15
--- NOTE | 2019-03-06 14:22 | Operative Note - PDOC ---
Operative Note Operative Note Date of Operation/Procedure: Mar 06, 2019 Pre-op Diagnosis: respiratory insufficiency Procedure: tracheostomy Post-op Diagnosis: same as pre-op Surgeon: Tristan Heller MD Anesthesiologist: Frankie Terrell MD Anesthesia: general, local Specimen: none Complications: none Condition: stable Fluids: see records Estimated Blood Loss: minimal Drains: none Implant(s) used?: No Indications for Procedure This is a 78-year-old female currently intensive care unit for some time on ventilatory support unable to wean. Patient with rest or insufficiency and necessity for prolonged ventilatory support. Tracheostomy was indicating recommended. Patient is underrepresented but does have a recent pulsed as of stating all care measures and life-sustaining measures to be performed. Patient is awake and responsive on ventilatory support attempts were made to explain plan of care. Multidisciplinary discussion had between ICU public utilities sales representative pulmonology medical teams and myself and discussion with understanding that medically necessary and given patient's wishes will proceed. Description of Procedure The patient was taken to the operating room and placed on the operating table in the supine position. Prior to entering the operating patient ready had a ET tube in place feeding tube Gross and is on antibiotics. Shoulder was placed. Neck was extended.. The neck and anterior chest were prepped and draped in the standard surgical fashion. Preoperative time-out was taken identifying the patient, procedure and operative staff. The patient was already on preoperative antibiotics, and given as scheduled. The patient already had a Gross in place prior to coming to the operating room. The thyroid and cricoid cartilage were palpated and the skin and subcutaneous tissue in this area was anesthetized with 1% lidocaine with epinephrine. An incision was made 2 fingerbreadths above the sternal notch. Subcu tissue and platysma were divided using with cautery. A hemostat was used to bluntly dissect down to the cricoid membrane. Electrocautery was used where necessary to obtain hemostasis. The strap muscles were identified and the median raphae was incised and the muscles were retracted laterally, and the thyroid isthmus was retracted superiorly. The first and second tracheal rings were clearly identified and exposure adequate. A tracheostomy hook was placed trachea was retracted superiorly. With the assistance of anesthesiologist, the endotracheal tube was withdrawn to the level of the cords. The second tracheal ring was identified. A transverse incision was made between the second and third rings with a fresh #11 scalpel blade. Under direct visualization A #8 Shiley tracheostomy tube was inserted and advanced. The tracheal hook was removed and the balloon was insufflated. Patient was placed to ventilatory support from the newly placed tracheostomy. The position was confirmed by end tidal CO2. Hemostasis was achieved in the incision with electrocautery as necessary. The tracheostomy tube was sutured in place and tracheostomy ties were placed and tied around the neck. The patient tolerated the procedure well, was taken back to the Surgical Intensive Care Unit in stable condition. Tristan Heller Mar 06, 2019 14:22
--- NOTE | 2019-03-06 14:30 | NUR ---
RESPIRATORY NOTE: Received pt back from OR s/p tracheostomy Jackie, cuffed size 8.0, secured by trach tie/trach guard. Placed pt in the vent with the same settings: AC 16-500ml-35%FiO2- peep 5, pt is still sedated. No SOB or resp distress noted. ANDREINA Gregory at bedside and aware. Will continue to monitor pt.
--- NOTE | 2019-03-06 14:33 | Immediate Post-Op Evaluation ---
Immediate Post-Op Evalulation Immediate Post-Op Evalulation Procedure: Tracheostomy Date of Evaluation: Mar 06, 2019 Time of Evaluation: 14:32 IV Fluids: 300 Blood Products: none Estimated Blood Loss: min Urinary Output: none Blood Pressure Systolic: 104 Blood Pressure Diastolic: 56 Pulse Rate: 76 Respiratory Rate: 20 O2 Sat by Pulse Oximetry: 98 Temperature (Fahrenheit): 97.6 Pain Score (1-10): 1 Nausea: No Vomiting: No Complications none Patient Status: no response, ventilated, none Frankie Terrell MD Mar 06, 2019 14:33
--- NOTE | 2019-03-06 14:35 | NUR ---
NURSE NOTES: Pt received back from the OR s/p Tracheostomy. Shiley 8.0- With vent settings of AC 16, TV 500, 35% FiO2 and peep of 5. SpO2 is 95%. B/P:93/67 ,RR:16, HR:76. Pt still sedated. No distress noted at this time.
--- NOTE | 2019-03-06 16:00 | NUR ---
NURSE NOTES: Pt tolerating trach well, O2Sat 100%. No distress noted. Oral care performed and pt cleaned and repositioned.
--- NOTE | 2019-03-06 16:12 | Anethesia Preoperative Eval ---
Anesthesia Pre-op PMH/ROS General Date of Evaluation: Mar 06, 2019 Time of Evaluation: 12:40 Anesthesiologist: Xander ASA Score: ASA 4 Mallampati Score Class I : Soft palate, uvula, fauces, pillars visible Class II: Soft palate, uvula, fauces visible Class III: Soft palate, base of uvula visible Class IV: Only hard plate visible Mallampati Classification: Class III Surgeon: Guicho Diagnosis: Respiratory failure Surgical Procedure: Tracheostomy Anesthesia History: none Family History: no anesthesia problems Allergies: Coded Allergies: No Known Allergies (Unverified , 02/19/19) Medications: see eMAR Patient NPO?: Yes NPO Date: Mar 06, 2019 NPO Time: 1000 Past Medical History Cardiovascular: Reports: HTN; Denies: CAD, [place], valve dz, arrhythmia, other Pulmonary: Reports: COPD; Denies: asthma, MULU, other Gastrointestinal/Genitourinary: Reports: GERD, CRI; Denies: ESRD, other Neurologic/Psychiatric: Reports: dementia, other - schizophrenia; Denies: CVA, depression/anxiety, TIA Endocrine: Reports: hypothyroidism; Denies: DM, steroids, other HEENT: Reports: cataract (L), cataract (R); Denies: glaucoma, BO[place] (L), BOIS FORTE (R), other Hematology/Immune: Reports: anemia; Denies: DVT, bleeding disorder, other Musculoskeletal/Integumentary: Reports: OA; Denies: RA, DJD, DDD, edema, other Other: other - malnourished PMH Narrative: as above PSxH Narrative: see H&P Anesthesia Pre-op Phys. Exam Physician Exam Last Vital Signs Date Time Temp Pulse Resp B/P (MAP) Pulse Ox O2 Delivery O2 Flow Rate FiO2 03/06/19 15:00 81 22 98/63 (75) 96 03/06/19 14:30 35 03/06/19 13:13 Mechanical Ventilator 03/06/19 12:00 97.8 Constitutional: NAD Neurologic: other - unable to obtaine Cardiovascular: other - IRR Respiratory: other - diminished breath sounds Gastrointestinal: S/NT/ND Airway Exam Mallampati Score: Class III MO: limited Neck: stiff, oraly intubated ROM: limited Teeth: missing Dentures: no upper, no lower Anesthesia Pre-op A/P Labs Hematology Test 03/06/19 04:00 White Blood Count 9.4 K/UL (4.8-10.8) Red Blood Count 2.59 M/UL (4.20-5.40) L Hemoglobin 8.1 G/DL (12.0-16.0) L Hematocrit 25.6 % (37.0-47.0) L Mean Corpuscular Volume 99 FL (80-99) Mean Corpuscular Hemoglobin 31.4 PG (27.0-31.0) H Mean Corpuscular Hemoglobin Concent 31.8 G/DL (32.0-36.0) L Red Cell Distribution Width 18.8 % (11.6-14.8) H Platelet Count 62 K/UL (150-450) L Mean Platelet Volume 7.5 FL (6.5-10.1) Neutrophils (%) (Auto) % (45.0-75.0) Lymphocytes (%) (Auto) % (20.0-45.0) Monocytes (%) (Auto) % (1.0-10.0) Eosinophils (%) (Auto) % (0.0-3.0) Basophils (%) (Auto) % (0.0-2.0) Differential Total Cells Counted 100 Neutrophils % (Manual) 95 % (45-75) H Lymphocytes % (Manual) 4 % (20-45) L Monocytes % (Manual) 1 % (1-10) Eosinophils % (Manual) 0 % (0-3) Basophils % (Manual) 0 % (0-2) Band Neutrophils 0 % (0-8) Platelet Estimate Decreased L Platelet Morphology Normal Anisocytosis 1+ Chemistry Test 03/06/19 04:00 Sodium Level 146 MMOL/L (136-145) H Potassium Level 3.6 MMOL/L (3.5-5.1) Chloride Level 112 MMOL/L (98-107) H Carbon Dioxide Level 24 MMOL/L (21-32) Anion Gap 10 mmol/L (5-15) Blood Urea Nitrogen 37 mg/dL (7-18) H Creatinine 0.9 MG/DL (0.55-1.30) Estimat Glomerular Filtration Rate mL/min (>60) Glucose Level 181 MG/DL (74-106) H Calcium Level 7.7 MG/DL (8.5-10.1) L Total Bilirubin 1.9 MG/DL (0.2-1.0) H Direct Bilirubin 1.3 MG/DL (0.0-0.3) H Aspartate Amino Transf (AST/SGOT) 55 U/L (15-37) H Alanine Aminotransferase (ALT/SGPT) 40 U/L (12-78) Alkaline Phosphatase 162 U/L (46-116) H Total Protein 5.4 G/DL (6.4-8.2) L Albumin 1.8 G/DL (3.4-5.0) L Globulin 3.6 g/dL Albumin/Globulin Ratio 0.5 (1.0-2.7) L Risk Assessment & Plan Assessment: ASA 4 Plan: GA Status Change Before Surgery: No Pre-Antibiotics Drug: Ancef 1gr. Given Within 1 Hr of Incision: Yes Time Given: 13:25 Frankie Terrell MD Mar 06, 2019 16:12
--- NOTE | 2019-03-06 17:56 | General Progress Note ---
Assessment/Plan Status: stable, not improved, deteriorating Assessment/Plan: Assessment - GT dependent - Hepatitis C (+) - Abnormal LFT, ascites, thrombocytopenia - suspect chronic liver disease - Lactic acidosis - Resp failure- s/p trach - OBS / Delirium - Azotemia - Diarrhea - improved off of lactulose - poor PX Recommendations - supportive care - continue TF - elevate HOB - frequent dry GT dressing changes - Abx per ID - agree with DNR Subjective Allergies: Coded Allergies: No Known Allergies (Unverified , 02/19/19) Subjective Above noted s/p trach off TF d/w RN Objective Last 24 Hour Vital Signs Date Time Temp Pulse Resp B/P (MAP) Pulse Ox O2 Delivery O2 Flow Rate FiO2 03/06/19 17:09 79 16 35 03/06/19 16:30 79 16 95/53 (67) 97 03/06/19 16:08 82 03/06/19 16:00 97.8 78 15 99/46 (63) 97 03/06/19 16:00 35 03/06/19 16:00 Mechanical Ventilator 03/06/19 15:00 81 22 98/63 (75) 96 03/06/19 14:33 76 20 98 03/06/19 14:30 75 16 35 03/06/19 13:13 82 18 100 Mechanical Ventilator 35 85 16 35 03/06/19 13:00 77 17 93/48 (63) 100 03/06/19 12:30 80 17 95/54 (68) 96 03/06/19 12:00 35 03/06/19 12:00 97.8 79 18 99/48 (65) 98 03/06/19 12:00 Mechanical Ventilator 03/06/19 11:31 83 03/06/19 11:00 78 16 87/53 (64) 100 03/06/19 10:45 82 21 35 03/06/19 10:00 83 16 93/52 (66) 100 03/06/19 09:22 86 20 35 03/06/19 09:22 97 03/06/19 09:00 82 20 94/48 (63) 98 03/06/19 08:55 82 03/06/19 08:00 97.6 81 16 86/50 (62) 100 03/06/19 08:00 Mechanical Ventilator 03/06/19 08:00 35 03/06/19 07:52 82 03/06/19 07:37 82 16 100 Mechanical Ventilator 35 80 16 35 03/06/19 07:15 85 19 104/52 (69) 100 03/06/19 07:00 82 17 90/51 (64) 100 03/06/19 06:30 83 17 95/49 (64) 100 03/06/19 06:15 81 18 100/52 (68) 100 03/06/19 06:00 83 17 104/60 (75) 98 03/06/19 05:45 82 18 91/53 (66) 100 03/06/19 05:30 81 17 93/54 (67) 100 03/06/19 05:15 83 16 35 03/06/19 05:15 82 15 88/48 (61) 98 03/06/19 05:00 80 16 94/50 (65) 98 03/06/19 05:00 94/50 03/06/19 04:45 81 15 91/47 (62) 100 03/06/19 04:30 82 16 95/48 (64) 96 03/06/19 04:00 Mechanical Ventilator 03/06/19 04:00 35 03/06/19 04:00 82/49 03/06/19 04:00 82 03/06/19 04:00 98.2 82 17 82/49 (60) 96 03/06/19 03:30 91 17 103/59 (74) 03/06/19 03:15 87 18 35 03/06/19 03:00 94 21 124/46 (72) 100 03/06/19 03:00 85/49 03/06/19 02:30 89 20 99/65 (76) 95 03/06/19 02:00 103/61 03/06/19 02:00 89 21 103/61 (75) 97 03/06/19 01:30 90 17 90/50 (63) 100 03/06/19 01:26 105 16 35 03/06/19 01:15 90 18 78/51 (60) 97 03/06/19 01:00 86 17 92/46 (61) 96 03/06/19 01:00 92/46 03/06/19 00:45 88 17 83/46 (58) 96 03/06/19 00:30 89 19 89/43 (58) 95 03/06/19 00:15 90 20 87/46 (60) 96 03/06/19 00:00 95 03/06/19 00:00 35 03/06/19 00:00 Mechanical Ventilator 03/06/19 00:00 86/51 03/06/19 00:00 99.1 92 21 86/51 (63) 95 03/05/19 23:45 91 13 106/61 (76) 97 03/05/19 23:30 93 25 127/48 (74) 99 03/05/19 23:15 94 21 115/59 (77) 100 03/05/19 23:00 113/59 03/05/19 23:00 95 27 113/59 (77) 100 03/05/19 22:54 93 24 35 03/05/19 22:45 93 24 98/62 (74) 99 03/05/19 22:30 97 26 96/61 (73) 99 03/05/19 22:15 93 22 112/64 (80) 100 03/05/19 22:00 92 23 108/68 (81) 99 03/05/19 22:00 108/68 03/05/19 21:45 92 12 115/84 (94) 98 03/05/19 21:32 98 22 35 03/05/19 21:30 92 19 100/84 (89) 99 03/05/19 21:15 91 16 125/52 (76) 97 03/05/19 21:00 92 13 87/55 (66) 97 03/05/19 21:00 87/55 03/05/19 20:30 91 19 86/57 (67) 98 03/05/19 20:00 35 03/05/19 20:00 Mechanical Ventilator 03/05/19 20:00 87 03/05/19 20:00 86/57 03/05/19 20:00 98.4 94 15 92/49 (63) 99 03/05/19 19:33 88 19 100 Mechanical Ventilator 35 89 17 35 03/05/19 19:30 90 18 96/57 (70) 100 03/05/19 19:00 98.1 93 18 92/54 (67) 99 03/05/19 19:00 92/54 03/05/19 18:45 98 27 103/52 (69) 99 03/05/19 18:15 90 24 94/48 (63) 99 11/25/19 18:00 92/54 Intake and Output 03/05/19 03/06/19 18:59 06:59 Intake Total 640.2500 ml 799.63 ml Output Total 400 ml 175 ml Balance 240.2500 ml 624.63 ml Free Water 80 ml IV Total 140.2500 ml 119.63 ml Tube Feeding 500 ml 600 ml Output Urine Total 350 ml 175 ml Stool Total 50 ml Laboratory Tests 03/06/19 04:00: White Blood Count 9.4, Red Blood Count 2.59L, Hemoglobin 8.1L, Hematocrit 25.6L , Mean Corpuscular Volume 99, Mean Corpuscular Hemoglobin 31.4H, Mean Corpuscular Hemoglobin Concent 31.8L, Red Cell Distribution Width 18.8H, Platelet Count 62L, Mean Platelet Volume 7.5, Neutrophils (%) (Auto) , Lymphocytes (%) (Auto) , Monocytes (%) (Auto) , Eosinophils (%) (Auto) , Basophils (%) (Auto) , Differential Total Cells Counted 100, Neutrophils % ( Manual) 95H, Lymphocytes % (Manual) 4L, Monocytes % (Manual) 1, Eosinophils % ( Manual) 0, Basophils % (Manual) 0, Band Neutrophils 0, Platelet Estimate DecreasedL, Platelet Morphology Normal, Anisocytosis 1+, Sodium Level 146H, Potassium Level 3.6, Chloride Level 112H, Carbon Dioxide Level 24, Anion Gap 10 , Blood Urea Nitrogen 37H, Creatinine 0.9, Estimat Glomerular Filtration Rate , Glucose Level 181H, Calcium Level 7.7L, Total Bilirubin 1.9H, Direct Bilirubin 1.3H, Aspartate Amino Transf (AST/SGOT) 55H, Alanine Aminotransferase (ALT/SGPT ) 40, Alkaline Phosphatase 162H, Total Protein 5.4L, Albumin 1.8L, Globulin 3.6 , Albumin/Globulin Ratio 0.5L Height (Feet): 5 Height (Inches): 5.00 Weight (Pounds): 163 Objective WDWN NCAT Supple, s/p trach Coarse ronchi RR abd soft ND NT, (+) GT, some skin breakdown at GT site obtunded contracted César Saldana MD Mar 06, 2019 17:56
--- NOTE | 2019-03-06 19:08 | NUR ---
HAND-OFF: Report given to ANDREINA Alcocer.
--- NOTE | 2019-03-06 19:30 | NUR ---
NURSE NOTES: Received patient from [place]. Patient is AAOX1. Patient is awake and alert and able to move head to stimulations. Patient is Newly trached Shiley 8. With vent settings of AC 16/500tv, 35% FiO2 and peep of 5. SpO2 is 100%. Patient has G-tube infusing Vital AF at 50ml/hr. Rectal tube noted with liquid brown diarrhea. KELVIN PICC infusing TKO NS. SCD's on. Multiple wounds noted, see WCP. P200 mattress noted. Patients BP is 98/54, 75 afib rhythm, SpO2 is 100%, RR 20, 98.9F. Patient has pitting edema on upper and lower extremities with some minor fluid seeping on the upper extremities. The abdomen in mildly tender and round. No acute distress at this time. Safety measures are in place. Will continue to monitor.
[2019-03-06] MEDS: Dyna-Hex 2% Top Sol 2oz TOPIC SCH (20:39)
--- NOTE | 2019-03-06 22:00 | NUR ---
NURSE NOTES: Repositioned patient and given oral care. BP remains stable at this time. 99/54 HR 81 Afib, SpO2 is 99%. No acute distress at this time. Trachea site remains dry and intact.
[2019-03-07] VITALS (26 sets, daily range): BP systolic 70–169; BP diastolic 23–110
--- NOTE | 2019-03-07 | NUR ---
NURSE NOTES: Repositioned patient and provided oral care. Patients rectal tube remains intact and still outflowing liquid diarrhea. No acute distress at this time. Blood pressure remains stable with MAP > 60, SBP > 90. Patient saturating 98% at 35% FiO2. Will continue to monitor.
[2019-03-07] MEDS: Hydrocortisone 100mg Inj IV SCH ×3 (00:27→20:32)
--- NOTE | 2019-03-07 02:00 | NUR ---
NURSE NOTES: Patient remains hemodynamically stable at this time. Repositioned patient and adjusted pillows to comfort. No new changes at this time, remains clean and dry. Not making much urine output. Checked for GT residual and no residual noted. Will continue to monitor.
--- NOTE | 2019-03-07 04:00 | NUR ---
NURSE NOTES: Patient cleaned and repositioned to comfort. Blood was drawn and sent to lab. PICC line was flushed with NS. Patient is afebrile. Patient does demonstrate some agitation. Released restraints for passive range of motions but patient keeps aiming for trach site and tries to pull on trach. Blood pressure remains stable 98/72 HR is 82 Afib rhythm. SCD's removed for 1 hour. Patient was suctioned and given oral care.
[2019-03-07 04:33] LABS: HEMATOCRIT 28.6 % (37.0-47.0); HEMOGLOBIN 9.1 G/DL (12.0-16.0); MEAN CORPUSCULAR VOLUME 100 FL (80-99); PLATELET COUNT 68 K/UL (150-450); RED BLOOD COUNT 2.87 M/UL (4.20-5.40); RED CELL DISTRIBUTION WIDTH 18.9 % (11.6-14.8); WHITE BLOOD COUNT 11.2 K/UL (4.8-10.8)
[2019-03-07] MEDS: metroNIDAZOLE 500mg tab GT SCH ×3 (05:29→20:32)
--- NOTE | 2019-03-07 06:00 | NUR ---
NURSE NOTES: Patient repositioned and given oral care. AM medications given via GT. Feeds are ongoing, no residual. Blood pressure has remained stable with SBP > 90 and MAP > 60. Patient is awake and agitated at times. Bilateral soft restraints released for passive range of motion. Patient extremities still remains edematous but less than yesterday. Patient still trying to aim for trachea site. Trachea care given.
[2019-03-07 06:44] LABS: ALANINE AMINOTRANSFERASE 36 U/L (12-78); ALBUMIN 1.8 G/DL (3.4-5.0); ALBUMIN/GLOBULIN RATIO 0.5 (1.0-2.7); ALKALINE PHOSPHATASE 139 U/L (46-116); ANION GAP 11 mmol/L (5-15); ASPARTATE AMINO TRANSFERASE 50 U/L (15-37); BILIRUBIN,TOTAL 1.6 MG/DL (0.2-1.0); BLOOD UREA NITROGEN 41 mg/dL (7-18); CALCIUM 7.8 MG/DL (8.5-10.1); CARBON DIOXIDE 23 MMOL/L (21-32); CHLORIDE 112 MMOL/L (98-107); POTASSIUM 3.5 MMOL/L (3.5-5.1); SODIUM 146 MMOL/L (136-145)
[2019-03-07 06:45] LABS: BILIRUBIN,DIRECT 1.1 MG/DL (0.0-0.3)
--- NOTE | 2019-03-07 06:45 | Progress Note ---
DATE: 03/06/2019 CARDIOLOGY PROGRESS NOTE SUBJECTIVE: The patient remains on low-dose pressors. Stress dose steroids have been reinitiated. OBJECTIVE: VITAL SIGNS: Vital signs are marginal. Blood pressure 86/50 to 104/52, heart rate 80s, respiratory rate 16 to 20, and afebrile. GENERAL: Anasarca. LUNGS: Diminished breath sounds. CARDIAC: Irregularly irregular rhythm. Normal S1 and S2. ABDOMEN: Soft and distended. LABORATORY DATA: White count 9.4 and hemoglobin 8.1. Sodium 146, potassium 3.6, bicarb 24, BUN 37, and creatinine 0.9. Albumin 1.8. IMPRESSION: 1. Profound shock. 2. Sepsis. 3. Adrenocortical . 4. Intravascular volume depletion. 5. Acute on chronic diastolic congestive heart failure, predominantly right-sided. 6. Severe protein-calorie malnutrition. 7. Paroxysmal atrial fibrillation now with controlled ventricular rate. 8. Potential for digoxin toxicity. PLAN: 1. Recheck digoxin levels. 2. Continue tapering of pressors. 3. Diuresis efforts. 4. Stress dose steroids. Jimmie Mason M.D. DR: YUE JOB#: [id number] CC:
--- NOTE | 2019-03-07 07:00 | NUR ---
RESPIRATORY NOTES: Received Patient on Vent settings ACVC RR 16, VT 500, Fio2 35% PEEP +5. Patient is trached with a Shiley 8 tracheostomy, secured with trache ties. Suctioned a moderate amount of thick fraser secretions. Patient lying in bed agitated. Vent plugged into red outlet. Alarms are on and audible. Will continue to monitor patient throughout the day.
--- NOTE | 2019-03-07 07:05 | NUR ---
HAND-OFF: Report given to Sharron Travis RN.
--- NOTE | 2019-03-07 07:10 | NUR ---
NURSE NOTES: Received pt from ANDREINA Alcocer. S/P tracheostomy yesterday, Shiley 8.0 cuffed, vent settings: AC 16/TV 500/Fio2 35%/+5, RR 20, SPo2 95%. Course rhonchi heard bilateral b/s. Thick fraser secretions noted. Bilateral soft wrist restraints in place, skin intact. Released restraints for passive ROM, patient seen reaching for trache and trying to pull. Placed patient back on restraints. GT running vital AF 1.2@50ml/hr, abdomen is distended/ascitic, non-tender. HOB 35 degrees. Normoactive bowel sounds. GT site draining pinkish/yellowish discharge, MD is aware. KELVIN PICC connected to TKO. Controlled A-fib on library monitor, highest HR 96. Rectal tube draining to gravity. Gross catheter draining to gravity. Bed locked, alarmed and in lowest position. Will continue plan of care.
[2019-03-07] MEDS: Albuterol/Ipratropium 3ml neb HHN PRN ×3 (07:14→18:51)
--- NOTE | 2019-03-07 07:35 | 48 Hour Post Anesthesia Eval ---
Post Anesthesia Evaluation Procedure: Tracheostomy Date of Evaluation: Mar 07, 2019 Time of Evaluation: 06:32 Blood Pressure Systolic: 90 0: 62 Pulse Rate: 80 Respiratory Rate: 20 Temperature (Fahrenheit): 98.6 O2 Sat by Pulse Oximetry: 98 Airway: patent Nausea: No Vomiting: No Pain Intensity: 0 Hydration Status: adequate Cardiopulmonary Status: Stable Mental Status/LOC: other - ICU Follow-up Care/Observations: 0 Post-Anesthesia Complications: 0 Follow-up care needed: N/A Patricio Cisneros MD Mar 07, 2019 07:35
--- NOTE | 2019-03-07 07:53 | NUR ---
RESPIRATORY NOTES: Patient failed weaning trail. Will not continue with weaning. Placed back onto ACVC settings.
--- NOTE | 2019-03-07 08:04 | Infectious Diseases Prog Note ---
Assessment/Plan Assessment/Plan A 1. pneumonia treated 2. fungal UTI 3.Acute renal failure 4. septic shock 5. CHF, systolic 6. dementia 7. Hypoxic respiratory failure 8. 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 Portal hypertension 12. 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 continue Flagyl 2. C. difficile test Subjective ROS Limited/Unobtainable: Yes Constitutional: Denies: fever Respiratory: Reports: other - had tracheostomy yesterday Gastrointestinal/Abdominal: Reports: diarrhea Neurologic: Reports: other - agitataed on restraint Allergies: Coded Allergies: No Known Allergies (Unverified , 02/19/19) Objective Vital Signs Last 24 Hour Vital Signs Date Time Temp Pulse Resp B/P (MAP) Pulse Ox O2 Delivery O2 Flow Rate FiO2 03/07/19 07:52 35 03/07/19 07:35 80 20 98 03/07/19 07:16 80 20 98 Mechanical Ventilator 35 03/07/19 07:12 84 20 99 Mechanical Ventilator 35 85 19 35 03/07/19 07:00 80 16 90/62 (71) 100 03/07/19 06:00 77 16 89/58 (68) 99 03/07/19 05:42 80 16 35 03/07/19 05:00 77 16 92/51 (65) 100 03/07/19 04:00 82 03/07/19 04:00 97.9 81 18 98/72 (81) 95 03/07/19 04:00 Mechanical Ventilator 03/07/19 04:00 35 03/07/19 03:48 79 23 35 03/07/19 03:00 86 22 119/77 (91) 100 03/07/19 02:00 82 17 103/55 (71) 93 03/07/19 01:13 81 17 35 03/07/19 01:00 79 19 112/68 (83) 95 03/07/19 00:00 Mechanical Ventilator 03/07/19 00:00 35 03/07/19 00:00 99.6 80 19 116/55 (75) 96 03/07/19 00:00 77 03/06/19 23:00 83 17 95/48 (64) 03/06/19 22:54 76 16 35 03/06/19 22:00 79 15 98/50 (66) 95 03/06/19 21:08 80 17 35 03/06/19 21:00 80 20 99/67 (78) 94 03/06/19 20:00 98.9 80 13 104/56 (72) 99 03/06/19 20:00 35 03/06/19 20:00 89 03/06/19 20:00 Mechanical Ventilator 03/06/19 19:37 77 16 100 Mechanical Ventilator 35 79 16 35 03/06/19 19:00 78 15 100/60 (73) 99 03/06/19 18:00 74 16 101/56 (71) 99 03/06/19 17:09 79 16 35 03/06/19 17:00 79 18 100/53 (69) 99 03/06/19 16:30 79 16 95/53 (67) 97 03/06/19 16:08 82 03/06/19 16:00 97.8 78 15 99/46 (63) 97 03/06/19 16:00 35 03/06/19 16:00 Mechanical Ventilator 03/06/19 15:00 81 22 98/63 (75) 96 03/06/19 14:33 76 20 98 03/06/19 14:30 75 16 35 03/06/19 13:13 82 18 100 Mechanical Ventilator 35 85 16 35 03/06/19 13:00 77 17 93/48 (63) 100 03/06/19 12:30 80 17 95/54 (68) 96 03/06/19 12:00 35 03/06/19 12:00 97.8 79 18 99/48 (65) 98 03/06/19 12:00 Mechanical Ventilator 03/06/19 11:31 83 03/06/19 11:00 78 16 87/53 (64) 100 03/06/19 10:45 82 21 35 03/06/19 10:00 83 16 93/52 (66) 100 03/06/19 09:22 86 20 35 03/06/19 09:22 97 03/06/19 09:00 82 20 94/48 (63) 98 03/06/19 08:55 82 Height (Feet): 5 Height (Inches): 5.00 Weight (Pounds): 159 HEENT: status post trach Respiratory/Chest: rhonchi - bilaterally, other - on ventilator Cardiovascular: normal rate, other - left arm PICC line Abdomen: soft, non tender Extremities: no edema Neurologic/Psychiatric: alert, responsive, disoriented Laboratory Tests Test 03/07/19 03:30 White Blood Count 11.2 K/UL (4.8-10.8) H Red Blood Count 2.87 M/UL (4.20-5.40) L Hemoglobin 9.1 G/DL (12.0-16.0) L Hematocrit 28.6 % (37.0-47.0) L Mean Corpuscular Volume 100 FL (80-99) H Mean Corpuscular Hemoglobin 31.7 PG (27.0-31.0) H Mean Corpuscular Hemoglobin Concent 31.8 G/DL (32.0-36.0) L Red Cell Distribution Width 18.9 % (11.6-14.8) H Platelet Count 68 K/UL (150-450) L Mean Platelet Volume 8.4 FL (6.5-10.1) Neutrophils (%) (Auto) % (45.0-75.0) Lymphocytes (%) (Auto) % (20.0-45.0) Monocytes (%) (Auto) % (1.0-10.0) Eosinophils (%) (Auto) % (0.0-3.0) Basophils (%) (Auto) % (0.0-2.0) Neutrophils % (Manual) Pending Lymphocytes % (Manual) Pending Platelet Estimate Pending Platelet Morphology Pending Sodium Level 146 MMOL/L (136-145) H Potassium Level 3.5 MMOL/L (3.5-5.1) Chloride Level 112 MMOL/L (98-107) H Carbon Dioxide Level 23 MMOL/L (21-32) Anion Gap 11 mmol/L (5-15) Blood Urea Nitrogen 41 mg/dL (7-18) H Creatinine 1.0 MG/DL (0.55-1.30) Estimat Glomerular Filtration Rate mL/min (>60) Glucose Level 178 MG/DL (74-106) H Calcium Level 7.8 MG/DL (8.5-10.1) L Magnesium Level 1.6 MG/DL (1.8-2.4) L Total Bilirubin 1.6 MG/DL (0.2-1.0) H Direct Bilirubin 1.1 MG/DL (0.0-0.3) H Aspartate Amino Transf (AST/SGOT) 50 U/L (15-37) H Alanine Aminotransferase (ALT/SGPT) 36 U/L (12-78) Alkaline Phosphatase 139 U/L (46-116) H Pro-B-Type Natriuretic Peptide 82602 pg/mL (0-125) H Total Protein 5.7 G/DL (6.4-8.2) L Albumin 1.8 G/DL (3.4-5.0) L Globulin 3.9 g/dL Albumin/Globulin Ratio 0.5 (1.0-2.7) L Digoxin Level 1.6 NG/ML (0.9-2.0) Current Medications Medications (Trade) Dose Ordered Sig/Pam Route PRN Reason Start Time Stop Time Status Last Admin Dose Admin Acetaminophen (Tylenol) 650 mg Q4H PRN GT Mild Pain/Temp > 100.5 03/04/19 11:00 03/21/19 17:14 Acetylcysteine (Mucomyst) 100 mg TIDRT HHN 03/04/19 09:15 04/03/19 09:14 03/07/19 07:14 Albuterol/ Ipratropium (Albuterol/ Ipratropium) 3 ml Q4H PRN HHN Shortness of Breath 03/04/19 09:45 03/09/19 09:44 03/07/19 07:14 Chlorhexidine Gluconate (Dayna-Hex 2%) 1 applic DAILY@2000 TOPIC 02/20/19 20:00 03/22/19 19:59 03/06/19 20:39 Digoxin (Lanoxin) 0.125 mg DAILY NG 03/04/19 09:00 04/03/19 08:59 03/06/19 08:55 Famotidine (Pepcid) 20 mg DAILY GT 03/07/19 09:00 04/06/19 08:59 Hydrocortisone (Solu-CORTEF) 50 mg Q8H IV 03/05/19 09:00 04/04/19 08:59 03/07/19 00:27 Metronidazole (Flagyl) 500 mg Q8HR GT 03/04/19 14:00 03/11/19 13:59 03/07/19 05:29 Midodrine (Pro-Amatine) 10 mg THREE TIMES A DAY NG 03/05/19 09:00 04/04/19 08:59 03/06/19 17:32 Norepinephrine Bitartrate 8 mg/ Dextrose 250 ml @ 0 mls/hr Q24H IV 03/03/19 08:30 04/02/19 08:29 03/05/19 11:47 Spironolactone (Aldactone) 25 mg BID GT 03/07/19 09:00 04/06/19 08:59 Neville Cunningham MD Mar 07, 2019 08:04
--- NOTE | 2019-03-07 08:07 | NUR ---
NURSE NOTES: RECEIVED ORDERS FOR STAT PARACENTESIS PER DR. CARR. PATIENT IS UNABLE TO SIGN AND NOT REPRESENTED. MD TO SIGN.
--- NOTE | 2019-03-07 08:17 | General Progress Note ---
Assessment/Plan Problem List: (1) Septic shock ICD Codes: A41.9 - Sepsis, unspecified organism; R65.21 - Severe sepsis with septic shock SNOMED: 80431796 (2) UTI (urinary tract infection) ICD Codes: N39.0 - Urinary tract infection, site not specified SNOMED: 24380307 Qualifiers: Qualified Codes: N39.0 - Urinary tract infection, site not specified (3) Renal failure ICD Codes: N19 - Unspecified kidney failure SNOMED: 70894924 Qualifiers: Qualified Codes: N17.9 - Acute kidney failure, unspecified (4) Abdominal pain ICD Codes: R10.9 - Unspecified abdominal pain SNOMED: 37789387 Qualifiers: Qualified Codes: R10.32 - Left lower quadrant pain (5) Severe sepsis ICD Codes: A41.9 - Sepsis, unspecified organism; R65.20 - Severe sepsis without septic shock SNOMED: 18059704 (6) Dehydration ICD Codes: E86.0 - Dehydration SNOMED: 94633915 (7) Atrial fibrillation with rapid ventricular response ICD Codes: I48.91 - Unspecified atrial fibrillation SNOMED: 620672341591876 Status: stable, not improved, deteriorating Assessment/Plan: cont supportive care wean vent as able resp rx suctioning trach care midodrine wean iv hydrocortisone resp rx and suctioning as needed monitor labs scd iv abx per id tube feeds paracentesis Subjective ROS Limited/Unobtainable: No Constitutional: Reports: malaise, weakness HEENT: Reports: no symptoms Cardiovascular: Reports: no symptoms Respiratory: Reports: shortness of breath, sputum Gastrointestinal/Abdominal: Reports: difficulty swallowing Genitourinary: Reports: no symptoms Neurologic/Psychiatric: Reports: no symptoms Endocrine: Reports: no symptoms Hematologic/Lymphatic: Reports: anemia Allergies: Coded Allergies: No Known Allergies (Unverified , 02/19/19) All Systems: reviewed and negative except above Subjective s/p uncomplicated trach. no fevers or chills. no sob. tolerating feeds. off pressors Objective Last 24 Hour Vital Signs Date Time Temp Pulse Resp B/P (MAP) Pulse Ox O2 Delivery O2 Flow Rate FiO2 03/07/19 08:00 Mechanical Ventilator 03/07/19 08:00 35 03/07/19 07:52 35 03/07/19 07:35 80 20 98 03/07/19 07:16 80 20 98 Mechanical Ventilator 35 03/07/19 07:12 84 20 99 Mechanical Ventilator 35 85 19 35 03/07/19 07:00 80 16 90/62 (71) 100 03/07/19 06:00 77 16 89/58 (68) 99 03/07/19 05:42 80 16 35 03/07/19 05:00 77 16 92/51 (65) 100 03/07/19 04:00 82 03/07/19 04:00 97.9 81 18 98/72 (81) 95 03/07/19 04:00 Mechanical Ventilator 03/07/19 04:00 35 03/07/19 03:48 79 23 35 03/07/19 03:00 86 22 119/77 (91) 100 03/07/19 02:00 82 17 103/55 (71) 93 03/07/19 01:13 81 17 35 03/07/19 01:00 79 19 112/68 (83) 95 03/07/19 00:00 Mechanical Ventilator 03/07/19 00:00 35 03/07/19 00:00 99.6 80 19 116/55 (75) 96 03/07/19 00:00 77 03/06/19 23:00 83 17 95/48 (64) 03/06/19 22:54 76 16 35 03/06/19 22:00 79 15 98/50 (66) 95 03/06/19 21:08 80 17 35 03/06/19 21:00 80 20 99/67 (78) 94 03/06/19 20:00 98.9 80 13 104/56 (72) 99 03/06/19 20:00 35 03/06/19 20:00 89 03/06/19 20:00 Mechanical Ventilator 03/06/19 19:37 77 16 100 Mechanical Ventilator 35 79 16 35 03/06/19 19:00 78 15 100/60 (73) 99 03/06/19 18:00 74 16 101/56 (71) 99 03/06/19 17:09 79 16 35 03/06/19 17:00 79 18 100/53 (69) 99 03/06/19 16:30 79 16 95/53 (67) 97 03/06/19 16:08 82 03/06/19 16:00 97.8 78 15 99/46 (63) 97 03/06/19 16:00 35 03/06/19 16:00 Mechanical Ventilator 03/06/19 15:00 81 22 98/63 (75) 96 03/06/19 14:33 76 20 98 03/06/19 14:30 75 16 35 03/06/19 13:13 82 18 100 Mechanical Ventilator 35 85 16 35 03/06/19 13:00 77 17 93/48 (63) 100 03/06/19 12:30 80 17 95/54 (68) 96 03/06/19 12:00 35 03/06/19 12:00 97.8 79 18 99/48 (65) 98 03/06/19 12:00 Mechanical Ventilator 03/06/19 11:31 83 03/06/19 11:00 78 16 87/53 (64) 100 03/06/19 10:45 82 21 35 03/06/19 10:00 83 16 93/52 (66) 100 03/06/19 09:22 86 20 35 03/06/19 09:22 97 03/06/19 09:00 82 20 94/48 (63) 98 03/06/19 08:55 82 Intake and Output 03/06/19 03/07/19 19:00 07:00 Intake Total 200 ml 680 ml Output Total 215 ml 170 ml Balance -15 ml 510 ml Free Water 80 ml Tube Feeding 150 ml 600 ml Other 50 ml Output Urine Total 215 ml 170 ml Laboratory Tests 03/07/19 03:30: White Blood Count 11.2H, Red Blood Count 2.87L, Hemoglobin 9.1L, Hematocrit 28.6L, Mean Corpuscular Volume 100H, Mean Corpuscular Hemoglobin 31.7H, Mean Corpuscular Hemoglobin Concent 31.8L, Red Cell Distribution Width 18.9H, Platelet Count 68L, Mean Platelet Volume 8.4, Neutrophils (%) (Auto) , Lymphocytes (%) (Auto) , Monocytes (%) (Auto) , Eosinophils (%) (Auto) , Basophils (%) (Auto) , Differential Total Cells Counted 100, Neutrophils % ( Manual) 92H, Lymphocytes % (Manual) 4L, Monocytes % (Manual) 4, Eosinophils % ( Manual) 0, Basophils % (Manual) 0, Band Neutrophils 0, Platelet Estimate DecreasedL, Platelet Morphology Normal, Hypochromasia 2+, Anisocytosis 2+, Sodium Level 146H, Potassium Level 3.5, Chloride Level 112H, Carbon Dioxide Level 23, Anion Gap 11, Blood Urea Nitrogen 41H, Creatinine 1.0, Estimat Glomerular Filtration Rate , Glucose Level 178H, Calcium Level 7.8L, Magnesium Level 1.6L, Total Bilirubin 1.6H, Direct Bilirubin 1.1H, Aspartate Amino Transf (AST/SGOT) 50H, Alanine Aminotransferase (ALT/SGPT) 36, Alkaline Phosphatase 139H, Pro-B-Type Natriuretic Peptide 17192T, Total Protein 5.7L, Albumin 1.8L, Globulin 3.9, Albumin/Globulin Ratio 0.5L, Digoxin Level 1.6 Height (Feet): 5 Height (Inches): 5.00 Weight (Pounds): 159 Objective General Appearance: WD/WN, confused. more responsive, Neck: supple, trach site clean. no bleeding Cardiovascular: irregularly irregular Respiratory/Chest: chest wall non-tender, lungs clear, normal breath sounds, no respiratory distress Abdomen: normal bowel sounds, non tender, soft, no organomegaly Edema: no edema noted Arm (L), no edema noted Arm (R), no edema noted Leg (L), no edema noted Leg (R), no edema noted Pedal (L), no edema noted Pedal (R), no edema noted Generalized Neurologic: disoriented Mitchel Reis MD Mar 07, 2019 08:17
[2019-03-07] MEDS: Digoxin 0.125mg tab NG SCH (08:41)
[2019-03-07] MEDS: Midodrine 10mg tab NG SCH ×3 (08:41→17:32)
[2019-03-07] MEDS: Spironolactone 25mg tab GT SCH ×2 (08:41→17:32)
--- NOTE | 2019-03-07 08:50 | NUR ---
CASE MANAGEMENT:REVIEW 03/06/19 SI: AC/CHR RESPIRATORY FAILURE POD #1 S/P TRACHEOSTOMY 97.9 80 20 90/62 98% ON VENT SUPPORT @ 35% FIO2 WBC+11.2 H/H-9.1/28.6 CA-7.8 MAG-1.6 IS: FLAGYL GT Q8HRS IV SOLUCORTEF Q12HRS ALDACTONE GT QD MIDODRINE NG TID DIGOXIN NG QD IV PROTONIX Q12 : ICU STATUS DCP: FROM [facility] ~ WILL NEED SUBACUTE
--- NOTE | 2019-03-07 10:11 | NUR ---
NURSE NOTES: Turned and repositioned. Oral care done at 0800. Pt was unable to wean. Shallow breaths and TV <200. Patient placed back on AC mode by RT. Paracentesis cancelled by Dr. Saldana as SBP is still low in high 80's and 90's.
--- NOTE | 2019-03-07 10:56 | NUR ---
*-* INSURANCE *-* ALL CLINICALS AND REVIEWS HAVE BEEN FAXED TO: MARGARITA Clement Ref#[id number] CM: Dung #[phone] ext [phone] fax#[phone]
--- NOTE | 2019-03-07 10:56 | Nephrology Progress Note ---
Assessment/Plan Problem List: (1) Acute respiratory failure Assessment: trached 03/06 (2) Septic shock (3) Renal failure (4) Atrial fibrillation with rapid ventricular response (5) Cardiomyopathy Assessment Renal failure - ? Acute on Chronic, Partly dehydration Septic Shock UTI AT Fib with FVR h/o DM, proteinuria , HypoAlbuminemia Plan day 1 post trach Kayexelaate as needed dig IV one dose given previously Midodrine K and Mag supplement as needed pulm support per consultants previously: stop NS intubated On 2 pressors BP remains low Poor prognosis - remains full code for now slow Hydrate 2D echo EjFx 40% antibiotics monitor renal parameters avoid nephrotoxics per orders Subjective ROS Limited/Unobtainable: Yes Objective Objective Last 24 Hour Vital Signs Date Time Temp Pulse Resp B/P (MAP) Pulse Ox O2 Delivery O2 Flow Rate FiO2 03/07/19 09:00 83 27 102/55 (71) 03/07/19 08:51 82 17 35 03/07/19 08:41 80 03/07/19 08:30 90/62 03/07/19 08:02 96.9 86 21 95/55 (68) 92 03/07/19 08:00 Mechanical Ventilator 03/07/19 08:00 35 03/07/19 08:00 82 03/07/19 07:52 35 03/07/19 07:35 80 20 98 03/07/19 07:16 80 20 98 Mechanical Ventilator 35 03/07/19 07:12 84 20 99 Mechanical Ventilator 35 85 19 35 03/07/19 07:00 80 16 90/62 (71) 100 03/07/19 06:00 77 16 89/58 (68) 99 03/07/19 05:42 80 16 35 03/07/19 05:00 77 16 92/51 (65) 100 03/07/19 04:00 82 03/07/19 04:00 97.9 81 18 98/72 (81) 95 03/07/19 04:00 Mechanical Ventilator 03/07/19 04:00 35 03/07/19 03:48 79 23 35 03/07/19 03:00 86 22 119/77 (91) 100 03/07/19 02:00 82 17 103/55 (71) 93 03/07/19 01:13 81 17 35 03/07/19 01:00 79 19 112/68 (83) 95 03/07/19 00:00 Mechanical Ventilator 03/07/19 00:00 35 03/07/19 00:00 99.6 80 19 116/55 (75) 96 03/07/19 00:00 77 03/06/19 23:00 83 17 95/48 (64) 03/06/19 22:54 76 16 35 03/06/19 22:00 79 15 98/50 (66) 95 03/06/19 21:08 80 17 35 03/06/19 21:00 80 20 99/67 (78) 94 03/06/19 20:00 98.9 80 13 104/56 (72) 99 03/06/19 20:00 35 03/06/19 20:00 89 03/06/19 20:00 Mechanical Ventilator 03/06/19 19:37 77 16 100 Mechanical Ventilator 35 79 16 35 03/06/19 19:00 78 15 100/60 (73) 99 03/06/19 18:00 74 16 101/56 (71) 99 03/06/19 17:09 79 16 35 03/06/19 17:00 79 18 100/53 (69) 99 03/06/19 16:30 79 16 95/53 (67) 97 03/06/19 16:08 82 03/06/19 16:00 97.8 78 15 99/46 (63) 97 03/06/19 16:00 35 03/06/19 16:00 Mechanical Ventilator 03/06/19 15:00 81 22 98/63 (75) 96 03/06/19 14:33 76 20 98 03/06/19 14:30 75 16 35 03/06/19 13:13 82 18 100 Mechanical Ventilator 35 85 16 35 03/06/19 13:00 77 17 93/48 (63) 100 03/06/19 12:30 80 17 95/54 (68) 96 03/06/19 12:00 35 03/06/19 12:00 97.8 79 18 99/48 (65) 98 03/06/19 12:00 Mechanical Ventilator 03/06/19 11:31 83 03/06/19 11:00 78 16 87/53 (64) 100 Intake and Output 03/06/19 03/07/19 19:00 07:00 Intake Total 200 ml 680 ml Output Total 215 ml 170 ml Balance -15 ml 510 ml Free Water 80 ml Tube Feeding 150 ml 600 ml Other 50 ml Output Urine Total 215 ml 170 ml Laboratory Tests 03/07/19 03:30: White Blood Count 11.2H, Red Blood Count 2.87L, Hemoglobin 9.1L, Hematocrit 28.6L, Mean Corpuscular Volume 100H, Mean Corpuscular Hemoglobin 31.7H, Mean Corpuscular Hemoglobin Concent 31.8L, Red Cell Distribution Width 18.9H, Platelet Count 68L, Mean Platelet Volume 8.4, Neutrophils (%) (Auto) , Lymphocytes (%) (Auto) , Monocytes (%) (Auto) , Eosinophils (%) (Auto) , Basophils (%) (Auto) , Differential Total Cells Counted 100, Neutrophils % ( Manual) 92H, Lymphocytes % (Manual) 4L, Monocytes % (Manual) 4, Eosinophils % ( Manual) 0, Basophils % (Manual) 0, Band Neutrophils 0, Platelet Estimate DecreasedL, Platelet Morphology Normal, Hypochromasia 2+, Anisocytosis 2+, Sodium Level 146H, Potassium Level 3.5, Chloride Level 112H, Carbon Dioxide Level 23, Anion Gap 11, Blood Urea Nitrogen 41H, Creatinine 1.0, Estimat Glomerular Filtration Rate , Glucose Level 178H, Calcium Level 7.8L, Phosphorus Level 3.1, Magnesium Level 1.6L, Total Bilirubin 1.6H, Direct Bilirubin 1.1H, Aspartate Amino Transf (AST/SGOT) 50H, Alanine Aminotransferase (ALT/SGPT) 36, Alkaline Phosphatase 139H, Pro-B-Type Natriuretic Peptide 93655D, Total Protein 5.7L, Albumin 1.8L, Globulin 3.9, Albumin/Globulin Ratio 0.5L, Digoxin Level 1.6 Height (Feet): 5 Height (Inches): 5.00 Weight (Pounds): 159 General Appearance: no apparent distress EENT: other - trached 03/06 vented Cardiovascular: tachycardia Respiratory/Chest: decreased breath sounds Abdomen: distended Objective no change Jt Louis MD Mar 07, 2019 10:56
--- NOTE | 2019-03-07 11:10 | NUR ---
NURSE NOTES: Patient is calm and cooperative. discontinued restraints, will monitor frequently.
--- NOTE | 2019-03-07 13:00 | NUR ---
NURSE NOTES: Pt seen attempting to remove tracheostomy. Pt is unable to comprehend teaching. Placed patient back on bilateral soft wrist restraints. MD is aware.
--- NOTE | 2019-03-07 15:41 | NUR ---
NURSE NOTES: TURNED AND REPOSITIONED, KEPT DRY AND CLEAN. BP STABLE. NO DISTRESS NOTED.
--- NOTE | 2019-03-07 17:37 | NUR ---
NURSE NOTES: Patient's nurse, Grecia Haq RN, busy with new admission. Administered 1800 medications and provided bed bath, repositioning, and oral care. Addendum: 03/07/19 at 1739 by Grecia Prieto RN Administered last dose of IV magnesium sulfate as well. Addendum: 03/07/19 at 1759 by Grecia Prieto RN The last magnesium sulfate IV medication bag (bag 4 of 4) ordered was unable to be pulled from the Pyx[facility] as it had been too long since the original administration time. Medication non-administered and re-ordered as a one time dose. Medication then administered per original order.
--- NOTE | 2019-03-07 18:56 | Pulmonolgy Critical Care Note ---
Critical Care - Asmt/Plan Assessment/Plan: Pulmonary CCM Progress Note Assessment/Plan ASSESSMENT: acute on chronic encephalopathy, Hepatitis C, dementia, chronic atrial fibrillation, hypertension, diastolic congestive heart failure, septic shock, hypothermia, hypotension, hypoxemia severe PCM, thrombocytopenia, anemia, leukocytosis, acute renal failure tachycardia, remains on Vent support, s/p Tracheostomy PLAN PLAN care noted and reviewed in detail ICU management reviewed in detail vent management - still on full vent support and difficult to wean keep negative as per cardiology meds reviewed monitor acid base supportive care reviewed full code as outlined pressors to off IV antibiotics ID noted respiratory care SNF meds noted monitor feeds and reflux suction and monitor imaging monitor for aspiration and change oxygen therapy as needed all care reviewed in detail ICU care reviewed close follow up of acid base closely needs trach as unable to wean remains very ill at present medications/laboratory data/nursing notes/ICU care reviewed in detail note reviewed and edited care discussed with RN and RT ICU time spent 40 minutes Critical Care - Subjective Interval Events: findings noted remains ill chronically vent ICU care reviewed ROS Limited/Unobtainable: Yes Condition: critical EKG Rhythm: Sinus Rhythm Residuals: minimal Tube Feeding Tolerated: yes Critical Care - Objective Tracheostomy Vital Signs Noted Labs Test 03/04/19 05:17 03/05/19 03:30 03/05/19 08:40 03/06/19 04:00 White Blood Count 12.2 K/UL (4.8-10.8) 12.8 K/UL (4.8-10.8) 9.4 K/UL (4.8-10.8) Red Blood Count 2.85 M/UL (4.20-5.40) 2.94 M/UL (4.20-5.40) 2.59 M/UL (4.20-5.40) Hemoglobin 9.1 G/DL (12.0-16.0) 9.4 G/DL (12.0-16.0) 8.1 G/DL (12.0-16.0) Hematocrit 28.5 % (37.0-47.0) 28.9 % (37.0-47.0) 25.6 % (37.0-47.0) Mean Corpuscular Volume 100 FL (80-99) 98 FL (80-99) 99 FL (80-99) Mean Corpuscular Hemoglobin 32.0 PG (27.0-31.0) 32.1 PG (27.0-31.0) 31.4 PG (27.0-31.0) Mean Corpuscular Hemoglobin Concent 32.0 G/DL (32.0-36.0) 32.6 G/DL (32.0-36.0) 31.8 G/DL (32.0-36.0) Red Cell Distribution Width 18.9 % (11.6-14.8) 18.2 % (11.6-14.8) 18.8 % (11.6-14.8) Platelet Count 72 K/UL (150-450) 75 K/UL (150-450) 62 K/UL (150-450) Mean Platelet Volume 9.1 FL (6.5-10.1) 8.4 FL (6.5-10.1) 7.5 FL (6.5-10.1) Neutrophils (%) (Auto) % (45.0-75.0) % (45.0-75.0) % (45.0-75.0) Lymphocytes (%) (Auto) % (20.0-45.0) % (20.0-45.0) % (20.0-45.0) Monocytes (%) (Auto) % (1.0-10.0) % (1.0-10.0) % (1.0-10.0) Eosinophils (%) (Auto) % (0.0-3.0) % (0.0-3.0) % (0.0-3.0) Basophils (%) (Auto) % (0.0-2.0) % (0.0-2.0) % (0.0-2.0) Differential Total Cells Counted 100 100 100 Neutrophils % (Manual) 82 % (45-75) 90 % (45-75) 95 % (45-75) Lymphocytes % (Manual) 10 % (20-45) 5 % (20-45) 4 % (20-45) Monocytes % (Manual) 6 % (1-10) 5 % (1-10) 1 % (1-10) Eosinophils % (Manual) 1 % (0-3) 0 % (0-3) 0 % (0-3) Basophils % (Manual) 0 % (0-2) 0 % (0-2) 0 % (0-2) Band Neutrophils 1 % (0-8) 0 % (0-8) 0 % (0-8) Platelet Estimate Decreased Decreased Decreased Platelet Morphology Normal Normal Normal Hypochromasia 1+ 1+ Anisocytosis 2+ 1+ 1+ Macrocytosis 1+ 1+ Ovalocytes Occasional Sodium Level 145 MMOL/L (136-145) 145 MMOL/L (136-145) 142 MMOL/L (136-145) 146 MMOL/L (136-145) Potassium Level 3.9 MMOL/L (3.5-5.1) 3.7 MMOL/L (3.5-5.1) 3.6 MMOL/L (3.5-5.1) 3.6 MMOL/L (3.5-5.1) Chloride Level 113 MMOL/L (98-107) 112 MMOL/L (98-107) 112 MMOL/L (98-107) 112 MMOL/L (98-107) Carbon Dioxide Level 25 MMOL/L (21-32) 23 MMOL/L (21-32) 28 MMOL/L (21-32) 24 MMOL/L (21-32) Anion Gap 7 mmol/L (5-15) 10 mmol/L (5-15) 3 mmol/L (5-15) 10 mmol/L (5-15) Blood Urea Nitrogen 33 mg/dL (7-18) 32 mg/dL (7-18) 34 mg/dL (7-18) 37 mg/dL (7-18) Creatinine 1.0 MG/DL (0.55-1.30) 0.9 MG/DL (0.55-1.30) 0.9 MG/DL (0.55-1.30) 0.9 MG/DL (0.55-1.30) Estimat Glomerular Filtration Rate mL/min (>60) mL/min (>60) mL/min (>60) mL/min (>60) Glucose Level 173 MG/DL (74-106) 149 MG/DL (74-106) 155 MG/DL (74-106) 181 MG/DL (74-106) Uric Acid 6.5 MG/DL (2.6-7.2) Calcium Level 7.7 MG/DL (8.5-10.1) 7.7 MG/DL (8.5-10.1) 7.5 MG/DL (8.5-10.1) 7.7 MG/DL (8.5-10.1) Phosphorus Level 2.9 MG/DL (2.5-4.9) Magnesium Level 1.8 MG/DL (1.8-2.4) Total Bilirubin 2.4 MG/DL (0.2-1.0) 2.3 MG/DL (0.2-1.0) 2.4 MG/DL (0.2-1.0) 1.9 MG/DL (0.2-1.0) Direct Bilirubin 1.8 MG/DL (0.0-0.3) 1.7 MG/DL (0.0-0.3) 1.8 MG/DL (0.0-0.3) 1.3 MG/DL (0.0-0.3) Aspartate Amino Transf (AST/SGOT) 80 U/L (15-37) 85 U/L (15-37) 79 U/L (15-37) 55 U/L (15-37) Alanine Aminotransferase (ALT/SGPT) 54 U/L (12-78) 51 U/L (12-78) 58 U/L (12-78) 40 U/L (12-78) Alkaline Phosphatase 203 U/L (46-116) 212 U/L (46-116) 205 U/L (46-116) 162 U/L (46-116) Total Protein 5.4 G/DL (6.4-8.2) 5.3 G/DL (6.4-8.2) 4.9 G/DL (6.4-8.2) 5.4 G/DL (6.4-8.2) Albumin 1.5 G/DL (3.4-5.0) 1.5 G/DL (3.4-5.0) 1.5 G/DL (3.4-5.0) 1.8 G/DL (3.4-5.0) Globulin 3.9 g/dL 3.8 g/dL 3.4 g/dL 3.6 g/dL Albumin/Globulin Ratio 0.4 (1.0-2.7) 0.4 (1.0-2.7) 0.4 (1.0-2.7) 0.5 (1.0-2.7 ) Digoxin Level 2.2 NG/ML (0.9-2.0) 1.5 NG/ML (0.9-2.0) Polychromasia 1+ Erythrocyte Sedimentation Rate 90 MM/HR (0-30) Prothrombin Time 11.4 SEC (9.30-11.50) Prothromb Time International Ratio 1.1 (0.9-1.1) Activated Partial Thromboplast Time 36 SEC (23-33) Amylase Level 145 U/L (25-115) Lipase 862 U/L (73-393) Objective: PHYSICAL EXAMINATION: GENERAL: The patient is a chronically ill-appearing female, on VENT and not weaning yet NECK: Supple. There is a central line in the right subclavian area. Trach CDI HEART: iRRR.without MRG LUNGS: reduced breath sounds with some rhonchi; no wheeze ABDOMEN: Soft, nontender, nondistended. no HSM EXTREMITIES: No clubbing, cyanosis, or edema. NEURO: response to pain skin noted reviewed and edited Critical Care - Objective Last 24 Hour Vital Signs Date Time Temp Pulse Resp B/P (MAP) Pulse Ox O2 Delivery O2 Flow Rate FiO2 03/07/19 18:00 87 27 121/100 (107) 100 03/07/19 17:00 98.1 87 32 169/110 (129) 100 03/07/19 16:59 88 24 35 03/07/19 16:00 35 03/07/19 16:00 Mechanical Ventilator 03/07/19 16:00 84 03/07/19 16:00 85 16 102/77 (85) 03/07/19 15:14 83 17 35 03/07/19 14:55 86 18 93/70 (78) 94 03/07/19 14:00 87 22 70/53 (59) 99 03/07/19 13:08 83 21 95/73 (80) 97 03/07/19 13:00 82 24 100 Mechanical Ventilator 35 81 26 35 03/07/19 12:30 81 18 106/56 (73) 03/07/19 12:03 97.6 83 18 92/53 (66) 100 03/07/19 12:00 35 03/07/19 12:00 85 03/07/19 12:00 Mechanical Ventilator 03/07/19 11:04 82 19 107/64 (78) 97 03/07/19 11:02 83 24 35 03/07/19 10:00 83 19 106/55 (72) 99 03/07/19 09:00 83 27 102/55 (71) 03/07/19 08:51 82 17 35 03/07/19 08:41 80 03/07/19 08:30 90/62 03/07/19 08:02 96.9 86 21 95/55 (68) 92 03/07/19 08:00 Mechanical Ventilator 03/07/19 08:00 35 03/07/19 08:00 82 03/07/19 07:52 35 03/07/19 07:35 80 20 98 03/07/19 07:16 80 20 98 Mechanical Ventilator 35 03/07/19 07:12 84 20 99 Mechanical Ventilator 35 85 19 35 03/07/19 07:00 80 16 90/62 (71) 100 03/07/19 06:00 77 16 89/58 (68) 99 03/07/19 05:42 80 16 35 03/07/19 05:00 77 16 92/51 (65) 100 03/07/19 04:00 82 03/07/19 04:00 97.9 81 18 98/72 (81) 95 03/07/19 04:00 Mechanical Ventilator 03/07/19 04:00 35 03/07/19 03:48 79 23 35 03/07/19 03:00 86 22 119/77 (91) 100 03/07/19 02:00 82 17 103/55 (71) 93 03/07/19 01:13 81 17 35 03/07/19 01:00 79 19 112/68 (83) 95 03/07/19 00:00 Mechanical Ventilator 03/07/19 00:00 35 03/07/19 00:00 99.6 80 19 116/55 (75) 96 03/07/19 00:00 77 03/06/19 23:00 83 17 95/48 (64) 03/06/19 22:54 76 16 35 03/06/19 22:00 79 15 98/50 (66) 95 03/06/19 21:08 80 17 35 03/06/19 21:00 80 20 99/67 (78) 94 03/06/19 20:00 98.9 80 13 104/56 (72) 99 03/06/19 20:00 35 03/06/19 20:00 89 03/06/19 20:00 Mechanical Ventilator 03/06/19 19:37 77 16 100 Mechanical Ventilator 35 79 16 35 03/06/19 19:00 78 15 100/60 (73) 99 Micro: Microbiology Date/Time Source Procedure Growth Status 03/06/19 11:40 Stool Clostridium difficile Toxin Assay - Final Complete Accucheck: 72 Critical Care - Subjective ROS Limited/Unobtainable: No FI02: 35 Vent Support Breath Rate: 16 Vent Support Mode: AC Vent Tidal Volume: 500 Sputum Amount: Small PEEP: 5.0 PIP: 18 Tube Feeding Amount: 50 I&O: Intake and Output 03/06/19 03/07/19 18:59 06:59 Intake Total 200 ml 680 ml Output Total 220 ml 160 ml Balance -20 ml 520 ml Free Water 80 ml Tube Feeding 150 ml 600 ml Other 50 ml Output Urine Total 220 ml 160 ml ET-Tube: 7.0 ET Position: 22 Jimmie Puckett MD Mar 07, 2019 18:56
--- NOTE | 2019-03-07 19:23 | Surgery Progress Note ---
Surgery Progress Note Subjective Procedure Performed tracheostomy Additional Comments Status post trach. More alert and awake today. Moving her hands and trying to communicate. More comfortable appearing. Wean vent as tolerated. Objective Last 24 Hour Vital Signs Date Time Temp Pulse Resp B/P (MAP) Pulse Ox O2 Delivery O2 Flow Rate FiO2 03/07/19 18:52 86 24 100 Mechanical Ventilator 35 86 24 35 03/07/19 18:00 87 27 121/100 (107) 100 03/07/19 17:00 98.1 87 32 169/110 (129) 100 03/07/19 16:59 88 24 35 03/07/19 16:00 35 03/07/19 16:00 Mechanical Ventilator 03/07/19 16:00 84 03/07/19 16:00 85 16 102/77 (85) 03/07/19 15:14 83 17 35 03/07/19 14:55 86 18 93/70 (78) 94 03/07/19 14:00 87 22 70/53 (59) 99 03/07/19 13:08 83 21 95/73 (80) 97 03/07/19 13:00 82 24 100 Mechanical Ventilator 35 81 26 35 03/07/19 12:30 81 18 106/56 (73) 03/07/19 12:03 97.6 83 18 92/53 (66) 100 03/07/19 12:00 35 03/07/19 12:00 85 03/07/19 12:00 Mechanical Ventilator 03/07/19 11:04 82 19 107/64 (78) 97 03/07/19 11:02 83 24 35 03/07/19 10:00 83 19 106/55 (72) 99 03/07/19 09:00 83 27 102/55 (71) 03/07/19 08:51 82 17 35 03/07/19 08:41 80 03/07/19 08:30 90/62 03/07/19 08:02 96.9 86 21 95/55 (68) 92 03/07/19 08:00 Mechanical Ventilator 03/07/19 08:00 35 03/07/19 08:00 82 03/07/19 07:52 35 03/07/19 07:35 80 20 98 03/07/19 07:16 80 20 98 Mechanical Ventilator 35 03/07/19 07:12 84 20 99 Mechanical Ventilator 35 85 19 35 03/07/19 07:00 80 16 90/62 (71) 100 03/07/19 06:00 77 16 89/58 (68) 99 03/07/19 05:42 80 16 35 03/07/19 05:00 77 16 92/51 (65) 100 03/07/19 04:00 82 03/07/19 04:00 97.9 81 18 98/72 (81) 95 03/07/19 04:00 Mechanical Ventilator 03/07/19 04:00 35 03/07/19 03:48 79 23 35 03/07/19 03:00 86 22 119/77 (91) 100 03/07/19 02:00 82 17 103/55 (71) 93 03/07/19 01:13 81 17 35 03/07/19 01:00 79 19 112/68 (83) 95 03/07/19 00:00 Mechanical Ventilator 03/07/19 00:00 35 03/07/19 00:00 99.6 80 19 116/55 (75) 96 03/07/19 00:00 77 03/06/19 23:00 83 17 95/48 (64) 03/06/19 22:54 76 16 35 03/06/19 22:00 79 15 98/50 (66) 95 03/06/19 21:08 80 17 35 03/06/19 21:00 80 20 99/67 (78) 94 03/06/19 20:00 98.9 80 13 104/56 (72) 99 03/06/19 20:00 35 03/06/19 20:00 89 03/06/19 20:00 Mechanical Ventilator 03/06/19 19:37 77 16 100 Mechanical Ventilator 35 79 16 35 I&O Intake and Output 03/06/19 03/07/19 18:59 06:59 Intake Total 200 ml 680 ml Output Total 220 ml 160 ml Balance -20 ml 520 ml Free Water 80 ml Tube Feeding 150 ml 600 ml Other 50 ml Output Urine Total 220 ml 160 ml Dressing: other Wound: other Drains: other Cardiovascular: RSR Respiratory: decreased breath sounds Abdomen: soft, present bowel sounds Extremities: no cyanosis Laboratory Tests Test 03/07/19 03:30 White Blood Count 11.2 K/UL (4.8-10.8) H Red Blood Count 2.87 M/UL (4.20-5.40) L Hemoglobin 9.1 G/DL (12.0-16.0) L Hematocrit 28.6 % (37.0-47.0) L Mean Corpuscular Volume 100 FL (80-99) H Mean Corpuscular Hemoglobin 31.7 PG (27.0-31.0) H Mean Corpuscular Hemoglobin Concent 31.8 G/DL (32.0-36.0) L Red Cell Distribution Width 18.9 % (11.6-14.8) H Platelet Count 68 K/UL (150-450) L Mean Platelet Volume 8.4 FL (6.5-10.1) Neutrophils (%) (Auto) % (45.0-75.0) Lymphocytes (%) (Auto) % (20.0-45.0) Monocytes (%) (Auto) % (1.0-10.0) Eosinophils (%) (Auto) % (0.0-3.0) Basophils (%) (Auto) % (0.0-2.0) Differential Total Cells Counted 100 Neutrophils % (Manual) 92 % (45-75) H Lymphocytes % (Manual) 4 % (20-45) L Monocytes % (Manual) 4 % (1-10) Eosinophils % (Manual) 0 % (0-3) Basophils % (Manual) 0 % (0-2) Band Neutrophils 0 % (0-8) Platelet Estimate Decreased L Platelet Morphology Normal Hypochromasia 2+ Anisocytosis 2+ Sodium Level 146 MMOL/L (136-145) H Potassium Level 3.5 MMOL/L (3.5-5.1) Chloride Level 112 MMOL/L (98-107) H Carbon Dioxide Level 23 MMOL/L (21-32) Anion Gap 11 mmol/L (5-15) Blood Urea Nitrogen 41 mg/dL (7-18) H Creatinine 1.0 MG/DL (0.55-1.30) Estimat Glomerular Filtration Rate mL/min (>60) Glucose Level 178 MG/DL (74-106) H Calcium Level 7.8 MG/DL (8.5-10.1) L Phosphorus Level 3.1 MG/DL (2.5-4.9) Magnesium Level 1.6 MG/DL (1.8-2.4) L Total Bilirubin 1.6 MG/DL (0.2-1.0) H Direct Bilirubin 1.1 MG/DL (0.0-0.3) H Aspartate Amino Transf (AST/SGOT) 50 U/L (15-37) H Alanine Aminotransferase (ALT/SGPT) 36 U/L (12-78) Alkaline Phosphatase 139 U/L (46-116) H Pro-B-Type Natriuretic Peptide 71824 pg/mL (0-125) H Total Protein 5.7 G/DL (6.4-8.2) L Albumin 1.8 G/DL (3.4-5.0) L Globulin 3.9 g/dL Albumin/Globulin Ratio 0.5 (1.0-2.7) L Digoxin Level 1.6 NG/ML (0.9-2.0) Plan Problems: (1) Septic shock Assessment & Plan: 78-year-old female in septic shock in the intensive care unit on pressors. Leukocytosis, anemia, abnormal labs. Tachycardic. On respiratory support. On examination patient identified to have slowed capillary refill in the distal extremities. Patient furthermore identified to have a weeping wound in the right great toe. Patient is currently very ill and septic and requiring pressors. Unfortunately given her medical condition comorbidities and history there is potential for distal vasoconstriction and potentially even necrosis of the distal aspects but further life-saving measures pressors currently required and necessary and indicated. wound re-evaluated. necrotic epidermal tissue sloth off but underlying tissues with backbleeding. motor noted spont in foot and toes We will continue to monitor extremities and evaluate them. Will wean off pressors as possible. Lactic acidosis improving. Continue IV antibiotics Wean pressors prognosis guarded labs slowly improving now still ill and guarded trach today polst reviewed Appreciate ICU care and management We will follow with recommendations (2) Abdominal pain Assessment & Plan: Chronic liver disease/cirrhosis with signs of portal hypertension including moderate ascites and hepatofugal flow in the portal vein. Gallbladder wall edema nonspecific Bilateral pleural effusions. Medical renal disease Findings: There is extensive artifact from the patient's arms limiting evaluation. Oral contrast was given. Gastrostomy tube is noted in good position. There are small bilateral pleural effusions present with adjacent ill-defined parenchymal density either atelectasis or pneumonia. Correlate clinically. Small pericardial effusion is present and there is generalized cardiomegaly present. Hiatal hernia noted. Aorta and coronary artery calcification present. Mild ascites is demonstrated. No compelling evidence for bowel obstruction. There is extensive diverticulosis involving the colon without obvious diverticulitis. Generalized anasarca noted. The appendix is not seen. The kidneys show no obvious hydronephrosis. The right kidney appears atrophic. There is a suggestion of cysts within the right kidney but this is grossly limited in terms of visualization. The gallbladder is demonstrated. The rectum appears low in location suggestive of prolapse and with a moderate degree of fecal retention. IMPRESSION: Limited evaluation due to artifact. Mild to moderate ascites Trace bilateral pleural effusions. Basilar atelectasis and/or infiltrate. Trace pericardial effusion Generalized cardiomegaly. Atherosclerotic vascular disease Extensive diverticulosis of the colon. No definite diverticulitis. Anasarca Gross catheter Query rectal prolapse reviewed US again lft's cont to rise likely liver decompensation trend (3) Severe sepsis Tristan Heller Mar 07, 2019 19:23
--- NOTE | 2019-03-07 19:34 | NUR ---
HAND-OFF: Report given to ANDREINA SALES. USING SBAR.
--- NOTE | 2019-03-07 19:37 | NUR ---
NURSE NOTES: Received patient from Sharron Travis. Patient is awake and alert and able to move head to stimulations. Patient is trached Shiley 8. With vent settings of AC 16/500tv, 35% FiO2 and peep of 5. SpO2 is 100%. Patient has G-tube infusing Vital AF at 50ml/hr. Rectal tube noted with liquid brown diarrhea. KELVIN PICC infusing TKO NS. SCD's on. Multiple wounds noted, see WCP. P200 mattress noted. Patients BP is 112/53, 75 afib rhythm, SpO2 is 98%, RR 22, 98.1F. Patient has pitting edema on upper and lower extremities. The abdomen in mildly tender and round. No acute distress at this time. Safety measures are in place. Will continue to monitor.
--- NOTE | 2019-03-07 20:00 | NUR ---
NURSE NOTES: Patient repositioned and given oral care. Blood pressure is stable. Patient is awake. Patient trying to pull trach. Restraints remains on for that reason. Will continue to monitor.
[2019-03-07] MEDS: Dyna-Hex 2% Top Sol 2oz TOPIC SCH (20:32)
--- NOTE | 2019-03-07 22:05 | NUR ---
NURSE NOTES: Repositioned patient. Rectal tube intact. Still draining liquid diarrhea. Vitals are stable.
--- NOTE | 2019-03-07 22:06 | General Progress Note ---
Assessment/Plan Status: stable, not improved, deteriorating Assessment/Plan: Assessment - GT dependent - Hepatitis C (+) - Abnormal LFT, ascites, thrombocytopenia - suspect chronic liver disease - Lactic acidosis - Resp failure- s/p trach - OBS / Delirium - Azotemia - Diarrhea - improved off of lactulose - poor PX Recommendations - supportive care - continue TF - elevate HOB - frequent dry GT dressing changes - PRN paracentesis - Abx per ID - agree with DNR Subjective Allergies: Coded Allergies: No Known Allergies (Unverified , 02/19/19) Subjective Above noted s/p trach back on feeds some abdominal distention borderline BP d/w RN Objective Last 24 Hour Vital Signs Date Time Temp Pulse Resp B/P (MAP) Pulse Ox O2 Delivery O2 Flow Rate FiO2 03/07/19 21:21 86 20 35 03/07/19 21:00 83 18 99/58 (72) 98 03/07/19 20:00 82 03/07/19 20:00 Mechanical Ventilator 03/07/19 20:00 99.0 86 16 117/62 (80) 100 03/07/19 20:00 35 03/07/19 19:03 85 24 112/53 (72) 100 03/07/19 19:00 86 18 73/23 (40) 100 03/07/19 18:52 86 24 100 Mechanical Ventilator 35 86 24 35 03/07/19 18:00 87 27 121/100 (107) 100 03/07/19 17:00 98.1 87 32 169/110 (129) 100 03/07/19 16:59 88 24 35 03/07/19 16:00 35 03/07/19 16:00 Mechanical Ventilator 03/07/19 16:00 84 03/07/19 16:00 85 16 102/77 (85) 03/07/19 15:14 83 17 35 03/07/19 14:55 86 18 93/70 (78) 94 03/07/19 14:00 87 22 70/53 (59) 99 03/07/19 13:08 83 21 95/73 (80) 97 03/07/19 13:00 82 24 100 Mechanical Ventilator 35 81 26 35 03/07/19 12:30 81 18 106/56 (73) 03/07/19 12:03 97.6 83 18 92/53 (66) 100 03/07/19 12:00 35 03/07/19 12:00 85 03/07/19 12:00 Mechanical Ventilator 03/07/19 11:04 82 19 107/64 (78) 97 03/07/19 11:02 83 24 35 03/07/19 10:00 83 19 106/55 (72) 99 03/07/19 09:00 83 27 102/55 (71) 03/07/19 08:51 82 17 35 03/07/19 08:41 80 03/07/19 08:30 90/62 03/07/19 08:02 96.9 86 21 95/55 (68) 92 03/07/19 08:00 Mechanical Ventilator 03/07/19 08:00 35 03/07/19 08:00 82 03/07/19 07:52 35 03/07/19 07:35 80 20 98 03/07/19 07:16 80 20 98 Mechanical Ventilator 35 03/07/19 07:12 84 20 99 Mechanical Ventilator 35 85 19 35 03/07/19 07:00 80 16 90/62 (71) 100 03/07/19 06:00 77 16 89/58 (68) 99 03/07/19 05:42 80 16 35 03/07/19 05:00 77 16 92/51 (65) 100 03/07/19 04:00 82 03/07/19 04:00 97.9 81 18 98/72 (81) 95 03/07/19 04:00 Mechanical Ventilator 03/07/19 04:00 35 03/07/19 03:48 79 23 35 03/07/19 03:00 86 22 119/77 (91) 100 03/07/19 02:00 82 17 103/55 (71) 93 03/07/19 01:13 81 17 35 03/07/19 01:00 79 19 112/68 (83) 95 03/07/19 00:00 Mechanical Ventilator 03/07/19 00:00 35 03/07/19 00:00 99.6 80 19 116/55 (75) 96 03/07/19 00:00 77 03/06/19 23:00 83 17 95/48 (64) 03/06/19 22:54 76 16 35 Intake and Output 03/06/19 03/07/19 18:59 06:59 Intake Total 200 ml 680 ml Output Total 220 ml 160 ml Balance -20 ml 520 ml Free Water 80 ml Tube Feeding 150 ml 600 ml Other 50 ml Output Urine Total 220 ml 160 ml Laboratory Tests 03/07/19 03:30: White Blood Count 11.2H, Red Blood Count 2.87L, Hemoglobin 9.1L, Hematocrit 28.6L, Mean Corpuscular Volume 100H, Mean Corpuscular Hemoglobin 31.7H, Mean Corpuscular Hemoglobin Concent 31.8L, Red Cell Distribution Width 18.9H, Platelet Count 68L, Mean Platelet Volume 8.4, Neutrophils (%) (Auto) , Lymphocytes (%) (Auto) , Monocytes (%) (Auto) , Eosinophils (%) (Auto) , Basophils (%) (Auto) , Differential Total Cells Counted 100, Neutrophils % ( Manual) 92H, Lymphocytes % (Manual) 4L, Monocytes % (Manual) 4, Eosinophils % ( Manual) 0, Basophils % (Manual) 0, Band Neutrophils 0, Platelet Estimate DecreasedL, Platelet Morphology Normal, Hypochromasia 2+, Anisocytosis 2+, Sodium Level 146H, Potassium Level 3.5, Chloride Level 112H, Carbon Dioxide Level 23, Anion Gap 11, Blood Urea Nitrogen 41H, Creatinine 1.0, Estimat Glomerular Filtration Rate , Glucose Level 178H, Calcium Level 7.8L, Phosphorus Level 3.1, Magnesium Level 1.6L, Total Bilirubin 1.6H, Direct Bilirubin 1.1H, Aspartate Amino Transf (AST/SGOT) 50H, Alanine Aminotransferase (ALT/SGPT) 36, Alkaline Phosphatase 139H, Pro-B-Type Natriuretic Peptide 08411R, Total Protein 5.7L, Albumin 1.8L, Globulin 3.9, Albumin/Globulin Ratio 0.5L, Digoxin Level 1.6 Height (Feet): 5 Height (Inches): 5.00 Weight (Pounds): 159 Objective WDWN NCAT Supple, s/p trach Coarse ronchi RR abd soft ND NT, (+) GT, some skin breakdown at GT site, distended abd obtunded contracted César Saldana MD Mar 07, 2019 22:06
[2019-03-08] VITALS (20 sets, daily range): BP systolic 88–125; BP diastolic 55–79
--- NOTE | 2019-03-08 | NUR ---
NURSE NOTES: Repositioned the patient and gave oral care. Vitals have remained stable, blood pressure is stable. Afebrile. Patient is calm at this time. Restraints released for trail to see if patient will be okay with out them. Very little output from Gross. About 10-15ml/hr. Irrigated Gross catheter and provided perineal care.
--- NOTE | 2019-03-08 01:25 | NUR ---
NURSE NOTES: DC'd bilateral soft wrist restraints. Patient has remained calm for the remainder of the hour without aiming towards Trach. Will continue to evaluate and observe patient without restraints.
--- NOTE | 2019-03-08 04:00 | NUR ---
NURSE NOTES: Patient cleaned and perineal care performed. So far patient hasn't been reaching for trach. No feed residual noted. Rectal tube remains in place, still draining liquid diarrhea. Irrigated Rectal tube and repositioned patient. Vitals remains stable.
--- NOTE | 2019-03-08 04:45 | Progress Note ---
DATE: 03/08/2019 CARDIOLOGY PROGRESS NOTE SUBJECTIVE: The patient is status post tracheostomy. No complications noted. Weaning efforts are ongoing. She required aggressive suctioning. Paracentesis was performed. She remains on pressors and steroid stress dosing. OBJECTIVE: EXTREMITIES: Moderate edema and anasarca. LUNGS: Diminished breath sounds. HEART: Regular rhythm and rate. Normal S1 and S2. ABDOMEN: Soft. IMPRESSION: 1. Persisting shock, multifactorial. 2. Respiratory failure, status post tracheostomy. 3. Acute on chronic systolic and diastolic congestive heart failure. 4. Cirrhosis with ascites. PLAN: 1. Nutrition by feeding tube. 2. Ventilator support via tracheostomy with weaning and suctioning. 3. Efforts at fluid mobilization. 4. Efforts at tapering off pressors and steroids. 5. Remains critical and guarded. Jimmie Mason M.D. DR: NYLA JOB#: [id number] CC:
[2019-03-08] MEDS: metroNIDAZOLE 500mg tab GT SCH (05:33)
--- NOTE | 2019-03-08 06:00 | NUR ---
NURSE NOTES: Repositioned patient. Patient remains off restraints, she is calm at this time. Vitals have remained stable throughout the shift. No distress. Will continue to monitor.
--- NOTE | 2019-03-08 07:00 | NUR ---
RESPIRATORY NOTES: Received Patient on Vent settings ACVC RR 16, VT 500, Fio2 35% PEEP +5. Patient is trached with a Shiley 8 tracheostomy, secured with trache ties. Suctioned a moderate amount of thick fraser white secretions. Patient lying in bed comfortable. Vent plugged into red outlet. Alarms are on and audible. Will continue to monitor patient throughout the day.
[2019-03-08] MEDS: Albuterol/Ipratropium 3ml neb HHN PRN ×3 (07:28→19:11)
--- NOTE | 2019-03-08 07:28 | NUR ---
RESPIRATORY NOTES: Patient failed weaning trail. RSBI >120. Will not continue with weaning. Placed back onto ACVC settings.
--- NOTE | 2019-03-08 07:28 | NUR ---
HAND-OFF: Report given to Gay [facility].
--- NOTE | 2019-03-08 07:29 | NUR ---
NURSE NOTES: Received patient in bed. Vent dependent. With continuous GTF. Gross cath inplace, rectal tube noted. Contact isolation observed. Patient is awake, moving both arms. Unable to follow commands. Will continue plan of care.
--- NOTE | 2019-03-08 08:00 | General Progress Note ---
Assessment/Plan Problem List: (1) Septic shock ICD Codes: A41.9 - Sepsis, unspecified organism; R65.21 - Severe sepsis with septic shock SNOMED: 71044017 (2) UTI (urinary tract infection) ICD Codes: N39.0 - Urinary tract infection, site not specified SNOMED: 62731897 Qualifiers: Qualified Codes: N39.0 - Urinary tract infection, site not specified (3) Renal failure ICD Codes: N19 - Unspecified kidney failure SNOMED: 60626460 Qualifiers: Qualified Codes: N17.9 - Acute kidney failure, unspecified (4) Abdominal pain ICD Codes: R10.9 - Unspecified abdominal pain SNOMED: 87705454 Qualifiers: Qualified Codes: R10.32 - Left lower quadrant pain (5) Severe sepsis ICD Codes: A41.9 - Sepsis, unspecified organism; R65.20 - Severe sepsis without septic shock SNOMED: 80496443 (6) Dehydration ICD Codes: E86.0 - Dehydration SNOMED: 92239301 (7) Atrial fibrillation with rapid ventricular response ICD Codes: I48.91 - Unspecified atrial fibrillation SNOMED: 063447064880190 Status: stable, not improved, deteriorating Assessment/Plan: cont supportive care wean vent as able resp rx suctioning trach care midodrine wean iv hydrocortisone to 25 q8 resp rx and suctioning as needed monitor labs scd iv abx per id tube feeds paracentesis Subjective ROS Limited/Unobtainable: No Constitutional: Reports: malaise, weakness HEENT: Reports: no symptoms Cardiovascular: Reports: no symptoms Respiratory: Reports: cough, shortness of breath, sputum Gastrointestinal/Abdominal: Reports: difficulty swallowing Genitourinary: Reports: no symptoms Neurologic/Psychiatric: Reports: no symptoms Endocrine: Reports: no symptoms Hematologic/Lymphatic: Reports: anemia Allergies: Coded Allergies: No Known Allergies (Unverified , 02/19/19) All Systems: reviewed and negative except above Subjective no events. remains off pressors. BP too low to do paracentesis. alert. no distress. Objective Last 24 Hour Vital Signs Date Time Temp Pulse Resp B/P (MAP) Pulse Ox O2 Delivery O2 Flow Rate FiO2 03/08/19 07:25 85 24 97 Mechanical Ventilator 35 82 19 35 03/08/19 07:00 82 17 101/57 (72) 100 03/08/19 06:00 79 17 109/62 (78) 100 03/08/19 05:05 77 19 35 03/08/19 05:00 83 17 102/58 (73) 98 03/08/19 04:00 35 03/08/19 04:00 99.4 88 21 121/64 (83) 99 03/08/19 04:00 Mechanical Ventilator 03/08/19 04:00 81 03/08/19 03:00 83 17 88/55 (66) 99 03/08/19 02:55 86 17 35 03/08/19 02:00 88 19 112/70 (84) 100 03/08/19 01:29 85 21 35 03/08/19 01:00 85 16 102/55 (71) 100 03/08/19 00:00 86 03/08/19 00:00 35 03/08/19 00:00 Mechanical Ventilator 03/08/19 00:00 98.7 87 23 108/64 (79) 99 03/07/19 23:20 87 20 35 03/07/19 23:00 85 17 90/55 (67) 100 03/07/19 22:00 83 16 97/68 (78) 100 03/07/19 21:21 86 20 35 03/07/19 21:00 83 18 99/58 (72) 98 03/07/19 20:00 82 03/07/19 20:00 Mechanical Ventilator 03/07/19 20:00 99.0 86 16 117/62 (80) 100 03/07/19 20:00 35 03/07/19 19:03 85 24 112/53 (72) 100 03/07/19 19:00 86 18 73/23 (40) 100 03/07/19 18:52 86 24 100 Mechanical Ventilator 35 86 24 35 03/07/19 18:00 87 27 121/100 (107) 100 03/07/19 17:00 98.1 87 32 169/110 (129) 100 03/07/19 16:59 88 24 35 03/07/19 16:00 35 03/07/19 16:00 Mechanical Ventilator 03/07/19 16:00 84 03/07/19 16:00 85 16 102/77 (85) 03/07/19 15:14 83 17 35 03/07/19 14:55 86 18 93/70 (78) 94 03/07/19 14:00 87 22 70/53 (59) 99 03/07/19 13:08 83 21 95/73 (80) 97 03/07/19 13:00 82 24 100 Mechanical Ventilator 35 81 26 35 03/07/19 12:30 81 18 106/56 (73) 03/07/19 12:03 97.6 83 18 92/53 (66) 100 03/07/19 12:00 35 03/07/19 12:00 85 03/07/19 12:00 Mechanical Ventilator 03/07/19 11:04 82 19 107/64 (78) 97 03/07/19 11:02 83 24 35 03/07/19 10:00 83 19 106/55 (72) 99 03/07/19 09:00 83 27 102/55 (71) 03/07/19 08:51 82 17 35 03/07/19 08:41 80 03/07/19 08:30 90/62 03/07/19 08:02 96.9 86 21 95/55 (68) 92 03/07/19 08:00 Mechanical Ventilator 03/07/19 08:00 35 03/07/19 08:00 82 Intake and Output 03/07/19 03/08/19 19:00 07:00 Intake Total 670 ml 640 ml Output Total 430 ml 120 ml Balance 240 ml 520 ml Free Water 120 ml 40 ml Tube Feeding 550 ml 600 ml Output Urine Total 230 ml 120 ml Stool Total 200 ml Height (Feet): 5 Height (Inches): 5.00 Weight (Pounds): 158 Objective General Appearance: WD/WN, confused. more responsive, Neck: supple, trach site clean. no bleeding Cardiovascular: irregularly irregular Respiratory/Chest: chest wall non-tender, lungs clear, normal breath sounds, no respiratory distress Abdomen: normal bowel sounds, non tender, soft, no organomegaly Edema: no edema noted Arm (L), no edema noted Arm (R), no edema noted Leg (L), no edema noted Leg (R), no edema noted Pedal (L), no edema noted Pedal (R), no edema noted Generalized Neurologic: disoriented Mitchel Reis MD Mar 08, 2019 08:00
[2019-03-08] MEDS: Spironolactone 25mg tab GT SCH ×2 (08:49→17:22)
[2019-03-08] MEDS: Digoxin 0.125mg tab NG SCH (08:49)
[2019-03-08] MEDS: Midodrine 10mg tab NG SCH ×2 (08:49→12:12)
--- NOTE | 2019-03-08 09:00 | NUR ---
NURSE NOTES: Noted patient pulling monitoring and evaluation advisor leads and reaching for her tracheotomy. Bilateral soft wrist restraints applied. Charge nurse made aware.
--- NOTE | 2019-03-08 09:27 | Infectious Diseases Prog Note ---
Assessment/Plan Assessment/Plan A 1. pneumonia treated 2. fungal UTI 3.Acute renal failure 4. septic shock 5. CHF, systolic 6. dementia 7. Hypoxic respiratory failure 8. 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 Portal hypertension 12. 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 Discontinue Flagyl 2. C. difficile test: negative Subjective ROS Limited/Unobtainable: Yes Constitutional: Denies: fever Neurologic: Reports: confusion, other - on restraint Allergies: Coded Allergies: No Known Allergies (Unverified , 02/19/19) Objective Vital Signs Last 24 Hour Vital Signs Date Time Temp Pulse Resp B/P (MAP) Pulse Ox O2 Delivery O2 Flow Rate FiO2 03/08/19 09:00 91 22 100/79 (86) 100 03/08/19 08:49 89 03/08/19 08:00 Mechanical Ventilator 03/08/19 08:00 97.9 89 21 101/60 (74) 94 03/08/19 08:00 35 03/08/19 07:25 85 24 97 Mechanical Ventilator 35 82 19 35 03/08/19 07:00 82 17 101/57 (72) 100 03/08/19 06:00 79 17 109/62 (78) 100 03/08/19 05:05 77 19 35 03/08/19 05:00 83 17 102/58 (73) 98 03/08/19 04:00 35 03/08/19 04:00 99.4 88 21 121/64 (83) 99 03/08/19 04:00 Mechanical Ventilator 03/08/19 04:00 81 03/08/19 03:00 83 17 88/55 (66) 99 03/08/19 02:55 86 17 35 03/08/19 02:00 88 19 112/70 (84) 100 03/08/19 01:29 85 21 35 03/08/19 01:00 85 16 102/55 (71) 100 03/08/19 00:00 86 03/08/19 00:00 35 03/08/19 00:00 Mechanical Ventilator 03/08/19 00:00 98.7 87 23 108/64 (79) 99 03/07/19 23:20 87 20 35 03/07/19 23:00 85 17 90/55 (67) 100 03/07/19 22:00 83 16 97/68 (78) 100 03/07/19 21:21 86 20 35 03/07/19 21:00 83 18 99/58 (72) 98 03/07/19 20:00 82 03/07/19 20:00 Mechanical Ventilator 03/07/19 20:00 99.0 86 16 117/62 (80) 100 03/07/19 20:00 35 03/07/19 19:03 85 24 112/53 (72) 100 03/07/19 19:00 86 18 73/23 (40) 100 03/07/19 18:52 86 24 100 Mechanical Ventilator 35 86 24 35 03/07/19 18:00 87 27 121/100 (107) 100 03/07/19 17:00 98.1 87 32 169/110 (129) 100 03/07/19 16:59 88 24 35 03/07/19 16:00 35 03/07/19 16:00 Mechanical Ventilator 03/07/19 16:00 84 03/07/19 16:00 85 16 102/77 (85) 03/07/19 15:14 83 17 35 03/07/19 14:55 86 18 93/70 (78) 94 03/07/19 14:00 87 22 70/53 (59) 99 03/07/19 13:08 83 21 95/73 (80) 97 03/07/19 13:00 82 24 100 Mechanical Ventilator 35 81 26 35 03/07/19 12:30 81 18 106/56 (73) 03/07/19 12:03 97.6 83 18 92/53 (66) 100 03/07/19 12:00 35 03/07/19 12:00 85 03/07/19 12:00 Mechanical Ventilator 03/07/19 11:04 82 19 107/64 (78) 97 03/07/19 11:02 83 24 35 03/07/19 10:00 83 19 106/55 (72) 99 Height (Feet): 5 Height (Inches): 5.00 Weight (Pounds): 158 HEENT: status post trach Respiratory/Chest: rhonchi - bilaterally, other - on venilator Cardiovascular: normal rate, other - left arm PICC line Abdomen: soft, non tender, other - GT & rectal tube Extremities: other - anasarca Neurologic/Psychiatric: alert, responsive Microbiology Date/Time Source Procedure Growth Status 03/06/19 11:40 Stool Clostridium difficile Toxin Assay - Final Complete Current Medications Medications (Trade) Dose Ordered Sig/Pam Route PRN Reason Start Time Stop Time Status Last Admin Dose Admin Acetaminophen (Tylenol) 650 mg Q4H PRN GT Mild Pain/Temp > 100.5 03/04/19 11:00 03/21/19 17:14 Acetylcysteine (Mucomyst) 100 mg TIDRT HHN 03/04/19 09:15 04/03/19 09:14 03/08/19 07:28 Albuterol/ Ipratropium (Albuterol/ Ipratropium) 3 ml Q4H PRN HHN Shortness of Breath 03/04/19 09:45 03/09/19 09:44 03/08/19 07:28 Chlorhexidine Gluconate (Dayna-Hex 2%) 1 applic DAILY@2000 TOPIC 02/20/19 20:00 03/22/19 19:59 03/07/19 20:32 Digoxin (Lanoxin) 0.125 mg DAILY NG 03/04/19 09:00 04/03/19 08:59 03/08/19 08:49 Famotidine (Pepcid) 20 mg DAILY GT 03/07/19 09:00 04/06/19 08:59 03/08/19 08:49 Hydrocortisone (Solu-CORTEF) 25 mg EVERY 8 HOURS IV 03/08/19 14:00 04/07/19 13:59 Metronidazole (Flagyl) 500 mg Q8HR GT 03/04/19 14:00 03/11/19 13:59 03/08/19 05:33 Midodrine (Pro-Amatine) 10 mg THREE TIMES A DAY NG 03/05/19 09:00 04/04/19 08:59 03/08/19 08:49 Norepinephrine Bitartrate 8 mg/ Dextrose 250 ml @ 0 mls/hr Q24H IV 03/03/19 08:30 04/02/19 08:29 03/05/19 11:47 Spironolactone (Aldactone) 25 mg BID GT 03/07/19 09:00 04/06/19 08:59 03/08/19 08:49 Neville Cunningham MD Mar 08, 2019 09:27
--- NOTE | 2019-03-08 10:14 | Nephrology Progress Note ---
Assessment/Plan Problem List: (1) Acute respiratory failure Assessment: trached 03/06 (2) Septic shock (3) Renal failure (4) Atrial fibrillation with rapid ventricular response (5) Cardiomyopathy Assessment Renal failure - ? Acute on Chronic, Partly dehydration Septic Shock UTI AT Fib with FVR h/o DM, proteinuria , HypoAlbuminemia Plan post trach Kayexelaate as needed dig IV one dose given previously Midodrine K and Mag supplement as needed pulm support per consultants previously: stop NS intubated On 2 pressors BP remains low Poor prognosis - remains full code for now slow Hydrate 2D echo EjFx 40% antibiotics monitor renal parameters avoid nephrotoxics per orders Subjective ROS Limited/Unobtainable: Yes Objective Objective Last 24 Hour Vital Signs Date Time Temp Pulse Resp B/P (MAP) Pulse Ox O2 Delivery O2 Flow Rate FiO2 03/08/19 09:25 88 30 35 03/08/19 09:00 91 22 100/79 (86) 100 03/08/19 08:49 89 03/08/19 08:00 Mechanical Ventilator 03/08/19 08:00 97.9 89 21 101/60 (74) 94 03/08/19 08:00 35 03/08/19 07:59 88 03/08/19 07:25 85 24 97 Mechanical Ventilator 35 82 19 35 03/08/19 07:00 82 17 101/57 (72) 100 03/08/19 06:00 79 17 109/62 (78) 100 03/08/19 05:05 77 19 35 03/08/19 05:00 83 17 102/58 (73) 98 03/08/19 04:00 35 03/08/19 04:00 99.4 88 21 121/64 (83) 99 03/08/19 04:00 Mechanical Ventilator 03/08/19 04:00 81 03/08/19 03:00 83 17 88/55 (66) 99 03/08/19 02:55 86 17 35 03/08/19 02:00 88 19 112/70 (84) 100 03/08/19 01:29 85 21 35 03/08/19 01:00 85 16 102/55 (71) 100 03/08/19 00:00 86 03/08/19 00:00 35 03/08/19 00:00 Mechanical Ventilator 03/08/19 00:00 98.7 87 23 108/64 (79) 99 03/07/19 23:20 87 20 35 03/07/19 23:00 85 17 90/55 (67) 100 03/07/19 22:00 83 16 97/68 (78) 100 03/07/19 21:21 86 20 35 03/07/19 21:00 83 18 99/58 (72) 98 03/07/19 20:00 82 03/07/19 20:00 Mechanical Ventilator 03/07/19 20:00 99.0 86 16 117/62 (80) 100 03/07/19 20:00 35 03/07/19 19:03 85 24 112/53 (72) 100 03/07/19 19:00 86 18 73/23 (40) 100 03/07/19 18:52 86 24 100 Mechanical Ventilator 35 86 24 35 03/07/19 18:00 87 27 121/100 (107) 100 03/07/19 17:00 98.1 87 32 169/110 (129) 100 03/07/19 16:59 88 24 35 03/07/19 16:00 35 03/07/19 16:00 Mechanical Ventilator 03/07/19 16:00 84 03/07/19 16:00 85 16 102/77 (85) 03/07/19 15:14 83 17 35 03/07/19 14:55 86 18 93/70 (78) 94 03/07/19 14:00 87 22 70/53 (59) 99 03/07/19 13:08 83 21 95/73 (80) 97 03/07/19 13:00 82 24 100 Mechanical Ventilator 35 81 26 35 03/07/19 12:30 81 18 106/56 (73) 03/07/19 12:03 97.6 83 18 92/53 (66) 100 03/07/19 12:00 35 03/07/19 12:00 85 03/07/19 12:00 Mechanical Ventilator 03/07/19 11:04 82 19 107/64 (78) 97 03/07/19 11:02 83 24 35 Intake and Output 03/07/19 03/08/19 19:00 07:00 Intake Total 670 ml 640 ml Output Total 430 ml 120 ml Balance 240 ml 520 ml Free Water 120 ml 40 ml Tube Feeding 550 ml 600 ml Output Urine Total 230 ml 120 ml Stool Total 200 ml Height (Feet): 5 Height (Inches): 5.00 Weight (Pounds): 158 General Appearance: no apparent distress EENT: other - trach Cardiovascular: tachycardia Respiratory/Chest: decreased breath sounds Objective no change Jt Louis MD Mar 08, 2019 10:14
--- NOTE | 2019-03-08 10:46 | Critical Care Progress Note ---
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, chronic atrial fibrillation, hypertension, diastolic congestive heart failure, septic shock, hypothermia, hypotension, hypoxemia severe PCM, thrombocytopenia, anemia, leukocytosis, acute renal failure Vent support s/p trach PLAN care noted and reviewed in detail ICU management reviewed in detail vent management - AC trach care keep negative meds reviewed monitor acid base supportive care reviewed full code as outlined pressors to off IV antibiotics ID noted respiratory care SNF meds noted monitor feeds and reflux suction and monitor imaging monitor for aspiration and change oxygen therapy as needed all care reviewed in detail ICU care reviewed close follow up of acid base closely needs trach as unable to wean remains very ill at present medications/laboratory data/nursing notes/ICU care reviewed in detail note reviewed and edited care discussed with RN and RT ICU time spent 38 minutes Critical Care - Subjective Interval Events: care noted and reviewed s/p trach on vent ICU care noted and reviewed ROS Limited/Unobtainable: Yes Condition: critical EKG Rhythm: Sinus Rhythm Residuals: minimal Tube Feeding Tolerated: yes I&O: Intake and Output 03/07/19 03/08/19 19:00 07:00 Intake Total 670 ml 640 ml Output Total 430 ml 120 ml Balance 240 ml 520 ml Free Water 120 ml 40 ml Tube Feeding 550 ml 600 ml Output Urine Total 230 ml 120 ml Stool Total 200 ml Critical Care - Objective ET-Tube: 7.0 ET Position: 22 Last 24 Hour Vital Signs Date Time Temp Pulse Resp B/P (MAP) Pulse Ox O2 Delivery O2 Flow Rate FiO2 03/08/19 09:25 88 30 35 03/08/19 09:00 91 22 100/79 (86) 100 03/08/19 08:49 89 03/08/19 08:00 Mechanical Ventilator 03/08/19 08:00 97.9 89 21 101/60 (74) 94 03/08/19 08:00 35 03/08/19 07:59 88 03/08/19 07:25 85 24 97 Mechanical Ventilator 35 82 19 35 03/08/19 07:00 82 17 101/57 (72) 100 03/08/19 06:00 79 17 109/62 (78) 100 03/08/19 05:05 77 19 35 03/08/19 05:00 83 17 102/58 (73) 98 03/08/19 04:00 35 03/08/19 04:00 99.4 88 21 121/64 (83) 99 03/08/19 04:00 Mechanical Ventilator 03/08/19 04:00 81 03/08/19 03:00 83 17 88/55 (66) 99 03/08/19 02:55 86 17 35 03/08/19 02:00 88 19 112/70 (84) 100 03/08/19 01:29 85 21 35 03/08/19 01:00 85 16 102/55 (71) 100 03/08/19 00:00 86 03/08/19 00:00 35 03/08/19 00:00 Mechanical Ventilator 03/08/19 00:00 98.7 87 23 108/64 (79) 99 03/07/19 23:20 87 20 35 03/07/19 23:00 85 17 90/55 (67) 100 03/07/19 22:00 83 16 97/68 (78) 100 03/07/19 21:21 86 20 35 03/07/19 21:00 83 18 99/58 (72) 98 03/07/19 20:00 82 03/07/19 20:00 Mechanical Ventilator 03/07/19 20:00 99.0 86 16 117/62 (80) 100 03/07/19 20:00 35 03/07/19 19:03 85 24 112/53 (72) 100 03/07/19 19:00 86 18 73/23 (40) 100 03/07/19 18:52 86 24 100 Mechanical Ventilator 35 86 24 35 03/07/19 18:00 87 27 121/100 (107) 100 03/07/19 17:00 98.1 87 32 169/110 (129) 100 03/07/19 16:59 88 24 35 03/07/19 16:00 35 03/07/19 16:00 Mechanical Ventilator 03/07/19 16:00 84 03/07/19 16:00 85 16 102/77 (85) 03/07/19 15:14 83 17 35 03/07/19 14:55 86 18 93/70 (78) 94 03/07/19 14:00 87 22 70/53 (59) 99 03/07/19 13:08 83 21 95/73 (80) 97 03/07/19 13:00 82 24 100 Mechanical Ventilator 35 81 26 35 03/07/19 12:30 81 18 106/56 (73) 03/07/19 12:03 97.6 83 18 92/53 (66) 100 03/07/19 12:00 35 03/07/19 12:00 85 03/07/19 12:00 Mechanical Ventilator 03/07/19 11:04 82 19 107/64 (78) 97 03/07/19 11:02 83 24 35 Labs: Labs Test 03/06/19 04:00 03/07/19 03:30 White Blood Count 9.4 K/UL (4.8-10.8) 11.2 K/UL (4.8-10.8) Red Blood Count 2.59 M/UL (4.20-5.40) 2.87 M/UL (4.20-5.40) Hemoglobin 8.1 G/DL (12.0-16.0) 9.1 G/DL (12.0-16.0) Hematocrit 25.6 % (37.0-47.0) 28.6 % (37.0-47.0) Mean Corpuscular Volume 99 FL (80-99) 100 FL (80-99) Mean Corpuscular Hemoglobin 31.4 PG (27.0-31.0) 31.7 PG (27.0-31.0) Mean Corpuscular Hemoglobin Concent 31.8 G/DL (32.0-36.0) 31.8 G/DL (32.0-36.0) Red Cell Distribution Width 18.8 % (11.6-14.8) 18.9 % (11.6-14.8) Platelet Count 62 K/UL (150-450) 68 K/UL (150-450) Mean Platelet Volume 7.5 FL (6.5-10.1) 8.4 FL (6.5-10.1) Neutrophils (%) (Auto) % (45.0-75.0) % (45.0-75.0) Lymphocytes (%) (Auto) % (20.0-45.0) % (20.0-45.0) Monocytes (%) (Auto) % (1.0-10.0) % (1.0-10.0) Eosinophils (%) (Auto) % (0.0-3.0) % (0.0-3.0) Basophils (%) (Auto) % (0.0-2.0) % (0.0-2.0) Differential Total Cells Counted 100 100 Neutrophils % (Manual) 95 % (45-75) 92 % (45-75) Lymphocytes % (Manual) 4 % (20-45) 4 % (20-45) Monocytes % (Manual) 1 % (1-10) 4 % (1-10) Eosinophils % (Manual) 0 % (0-3) 0 % (0-3) Basophils % (Manual) 0 % (0-2) 0 % (0-2) Band Neutrophils 0 % (0-8) 0 % (0-8) Platelet Estimate Decreased Decreased Platelet Morphology Normal Normal Anisocytosis 1+ 2+ Sodium Level 146 MMOL/L (136-145) 146 MMOL/L (136-145) Potassium Level 3.6 MMOL/L (3.5-5.1) 3.5 MMOL/L (3.5-5.1) Chloride Level 112 MMOL/L (98-107) 112 MMOL/L (98-107) Carbon Dioxide Level 24 MMOL/L (21-32) 23 MMOL/L (21-32) Anion Gap 10 mmol/L (5-15) 11 mmol/L (5-15) Blood Urea Nitrogen 37 mg/dL (7-18) 41 mg/dL (7-18) Creatinine 0.9 MG/DL (0.55-1.30) 1.0 MG/DL (0.55-1.30) Estimat Glomerular Filtration Rate mL/min (>60) mL/min (>60) Glucose Level 181 MG/DL (74-106) 178 MG/DL (74-106) Calcium Level 7.7 MG/DL (8.5-10.1) 7.8 MG/DL (8.5-10.1) Total Bilirubin 1.9 MG/DL (0.2-1.0) 1.6 MG/DL (0.2-1.0) Direct Bilirubin 1.3 MG/DL (0.0-0.3) 1.1 MG/DL (0.0-0.3) Aspartate Amino Transf (AST/SGOT) 55 U/L (15-37) 50 U/L (15-37) Alanine Aminotransferase (ALT/SGPT) 40 U/L (12-78) 36 U/L (12-78) Alkaline Phosphatase 162 U/L (46-116) 139 U/L (46-116) Total Protein 5.4 G/DL (6.4-8.2) 5.7 G/DL (6.4-8.2) Albumin 1.8 G/DL (3.4-5.0) 1.8 G/DL (3.4-5.0) Globulin 3.6 g/dL 3.9 g/dL Albumin/Globulin Ratio 0.5 (1.0-2.7) 0.5 (1.0-2.7) Hypochromasia 2+ Phosphorus Level 3.1 MG/DL (2.5-4.9) Magnesium Level 1.6 MG/DL (1.8-2.4) Pro-B-Type Natriuretic Peptide 90310 pg/mL (0-125) Digoxin Level 1.6 NG/ML (0.9-2.0) Objective: PHYSICAL EXAMINATION: GENERAL: The patient is a chronically ill-appearing female, on VENT trach in place NECK: Supple. There is a central line in the right subclavian area. HEART: iRRR.without MRG LUNGS: reduced breath sounds with some rhonchi; no wheeze; same ABDOMEN: Soft, nontender, nondistended. no HSM EXTREMITIES: No clubbing, cyanosis, or edema. NEURO: response to pain skin noted reviewed and edited Micro: Microbiology Date/Time Source Procedure Growth Status 03/06/19 11:40 Stool Clostridium difficile Toxin Assay - Final Complete Accucheck: 72 Jan Anderson MD Mar 08, 2019 10:46
--- NOTE | 2019-03-08 11:00 | NUR ---
NURSE NOTES: Bed bath provided. Patient tolerated well. No respiratory distress.
--- NOTE | 2019-03-08 13:17 | General Progress Note ---
Assessment/Plan Status: stable, not improved, deteriorating Assessment/Plan: Assessment - GT dependent - Hepatitis C (+) - Abnormal LFT, ascites, thrombocytopenia - suspect chronic liver disease - Lactic acidosis - Resp failure- s/p trach - OBS / Delirium - Azotemia - Diarrhea - improved off of lactulose - poor PX Recommendations - supportive care - continue TF - elevate HOB - frequent dry GT dressing changes - PRN paracentesis - Abx per ID - agree with DNR Subjective Allergies: Coded Allergies: No Known Allergies (Unverified , 02/19/19) Subjective Above noted tolerating feeds some abdominal distention borderline BP d/w RN Objective Last 24 Hour Vital Signs Date Time Temp Pulse Resp B/P (MAP) Pulse Ox O2 Delivery O2 Flow Rate FiO2 03/08/19 13:00 84 25 112/63 (79) 100 03/08/19 12:27 82 03/08/19 12:00 97.8 87 28 105/64 (78) 94 03/08/19 12:00 35 03/08/19 12:00 Mechanical Ventilator 03/08/19 11:18 80 17 35 03/08/19 11:00 82 25 103/60 (74) 100 03/08/19 10:00 88 27 102/56 (71) 100 03/08/19 09:25 88 30 35 03/08/19 09:00 91 22 100/79 (86) 100 03/08/19 08:49 89 03/08/19 08:00 Mechanical Ventilator 03/08/19 08:00 97.9 89 21 101/60 (74) 94 03/08/19 08:00 35 03/08/19 07:59 88 03/08/19 07:25 85 24 97 Mechanical Ventilator 35 82 19 35 03/08/19 07:00 82 17 101/57 (72) 100 03/08/19 06:00 79 17 109/62 (78) 100 03/08/19 05:05 77 19 35 03/08/19 05:00 83 17 102/58 (73) 98 03/08/19 04:00 35 03/08/19 04:00 99.4 88 21 121/64 (83) 99 03/08/19 04:00 Mechanical Ventilator 03/08/19 04:00 81 03/08/19 03:00 83 17 88/55 (66) 99 03/08/19 02:55 86 17 35 03/08/19 02:00 88 19 112/70 (84) 100 03/08/19 01:29 85 21 35 03/08/19 01:00 85 16 102/55 (71) 100 03/08/19 00:00 86 03/08/19 00:00 35 03/08/19 00:00 Mechanical Ventilator 03/08/19 00:00 98.7 87 23 108/64 (79) 99 03/07/19 23:20 87 20 35 03/07/19 23:00 85 17 90/55 (67) 100 03/07/19 22:00 83 16 97/68 (78) 100 03/07/19 21:21 86 20 35 03/07/19 21:00 83 18 99/58 (72) 98 03/07/19 20:00 82 03/07/19 20:00 Mechanical Ventilator 03/07/19 20:00 99.0 86 16 117/62 (80) 100 03/07/19 20:00 35 03/07/19 19:03 85 24 112/53 (72) 100 03/07/19 19:00 86 18 73/23 (40) 100 03/07/19 18:52 86 24 100 Mechanical Ventilator 35 86 24 35 03/07/19 18:00 87 27 121/100 (107) 100 03/07/19 17:00 98.1 87 32 169/110 (129) 100 03/07/19 16:59 88 24 35 03/07/19 16:00 35 03/07/19 16:00 Mechanical Ventilator 03/07/19 16:00 84 03/07/19 16:00 85 16 102/77 (85) 03/07/19 15:14 83 17 35 03/07/19 14:55 86 18 93/70 (78) 94 03/07/19 14:00 87 22 70/53 (59) 99 Intake and Output 03/07/19 03/08/19 19:00 07:00 Intake Total 670 ml 640 ml Output Total 430 ml 120 ml Balance 240 ml 520 ml Free Water 120 ml 40 ml Tube Feeding 550 ml 600 ml Output Urine Total 230 ml 120 ml Stool Total 200 ml Laboratory Tests 03/08/19 10:40: C-Reactive Protein, Quantitative 16.5H Height (Feet): 5 Height (Inches): 5.00 Weight (Pounds): 158 Objective [facility] NCAT Supple, s/p trach Coarse ronchi RR abd soft ND NT, (+) GT, some skin breakdown at GT site, distended abd obtunded contracted César Saldana MD Mar 08, 2019 13:17
--- NOTE | 2019-03-08 13:21 | Surgery Progress Note ---
Surgery Progress Note Subjective Procedure Performed tracheostomy Symptoms: improved Objective Last 24 Hour Vital Signs Date Time Temp Pulse Resp B/P (MAP) Pulse Ox O2 Delivery O2 Flow Rate FiO2 03/08/19 13:00 84 25 112/63 (79) 100 03/08/19 12:27 82 03/08/19 12:00 97.8 87 28 105/64 (78) 94 03/08/19 12:00 35 03/08/19 12:00 Mechanical Ventilator 03/08/19 11:18 80 17 35 03/08/19 11:00 82 25 103/60 (74) 100 03/08/19 10:00 88 27 102/56 (71) 100 03/08/19 09:25 88 30 35 03/08/19 09:00 91 22 100/79 (86) 100 03/08/19 08:49 89 03/08/19 08:00 Mechanical Ventilator 03/08/19 08:00 97.9 89 21 101/60 (74) 94 03/08/19 08:00 35 03/08/19 07:59 88 03/08/19 07:25 85 24 97 Mechanical Ventilator 35 82 19 35 03/08/19 07:00 82 17 101/57 (72) 100 03/08/19 06:00 79 17 109/62 (78) 100 03/08/19 05:05 77 19 35 03/08/19 05:00 83 17 102/58 (73) 98 03/08/19 04:00 35 03/08/19 04:00 99.4 88 21 121/64 (83) 99 03/08/19 04:00 Mechanical Ventilator 03/08/19 04:00 81 03/08/19 03:00 83 17 88/55 (66) 99 03/08/19 02:55 86 17 35 03/08/19 02:00 88 19 112/70 (84) 100 03/08/19 01:29 85 21 35 03/08/19 01:00 85 16 102/55 (71) 100 03/08/19 00:00 86 03/08/19 00:00 35 03/08/19 00:00 Mechanical Ventilator 03/08/19 00:00 98.7 87 23 108/64 (79) 99 03/07/19 23:20 87 20 35 03/07/19 23:00 85 17 90/55 (67) 100 03/07/19 22:00 83 16 97/68 (78) 100 03/07/19 21:21 86 20 35 03/07/19 21:00 83 18 99/58 (72) 98 03/07/19 20:00 82 03/07/19 20:00 Mechanical Ventilator 03/07/19 20:00 99.0 86 16 117/62 (80) 100 03/07/19 20:00 35 03/07/19 19:03 85 24 112/53 (72) 100 03/07/19 19:00 86 18 73/23 (40) 100 03/07/19 18:52 86 24 100 Mechanical Ventilator 35 86 24 35 03/07/19 18:00 87 27 121/100 (107) 100 03/07/19 17:00 98.1 87 32 169/110 (129) 100 03/07/19 16:59 88 24 35 03/07/19 16:00 35 03/07/19 16:00 Mechanical Ventilator 03/07/19 16:00 84 03/07/19 16:00 85 16 102/77 (85) 03/07/19 15:14 83 17 35 03/07/19 14:55 86 18 93/70 (78) 94 03/07/19 14:00 87 22 70/53 (59) 99 I&O Intake and Output 03/07/19 03/08/19 19:00 07:00 Intake Total 670 ml 640 ml Output Total 430 ml 120 ml Balance 240 ml 520 ml Free Water 120 ml 40 ml Tube Feeding 550 ml 600 ml Output Urine Total 230 ml 120 ml Stool Total 200 ml Dressing: other Wound: other Drains: other Cardiovascular: RSR Respiratory: decreased breath sounds Abdomen: soft, present bowel sounds Extremities: no cyanosis Laboratory Tests Test 03/08/19 10:40 C-Reactive Protein, Quantitative 16.5 mg/dL (0.00-0.90) H Plan Problems: (1) Septic shock Assessment & Plan: 78-year-old female in septic shock in the intensive care unit on pressors. Leukocytosis, anemia, abnormal labs. Tachycardic. On respiratory support. On examination patient identified to have slowed capillary refill in the distal extremities. Patient furthermore identified to have a weeping wound in the right great toe. Patient is currently very ill and septic and requiring pressors. Unfortunately given her medical condition comorbidities and history there is potential for distal vasoconstriction and potentially even necrosis of the distal aspects but further life-saving measures pressors currently required and necessary and indicated. wound re-evaluated. necrotic epidermal tissue sloth off but underlying tissues with backbleeding. motor noted spont in foot and toes We will continue to monitor extremities and evaluate them. Will wean off pressors as possible. Lactic acidosis improving. Continue IV antibiotics Wean pressors prognosis guarded labs slowly improving now still ill and guarded trach today polst reviewed Appreciate ICU care and management We will follow with recommendations (2) Abdominal pain Assessment & Plan: Chronic liver disease/cirrhosis with signs of portal hypertension including moderate ascites and hepatofugal flow in the portal vein. Gallbladder wall edema nonspecific Bilateral pleural effusions. Medical renal disease Findings: There is extensive artifact from the patient's arms limiting evaluation. Oral contrast was given. Gastrostomy tube is noted in good position. There are small bilateral pleural effusions present with adjacent ill-defined parenchymal density either atelectasis or pneumonia. Correlate clinically. Small pericardial effusion is present and there is generalized cardiomegaly present. Hiatal hernia noted. Aorta and coronary artery calcification present. Mild ascites is demonstrated. No compelling evidence for bowel obstruction. There is extensive diverticulosis involving the colon without obvious diverticulitis. Generalized anasarca noted. The appendix is not seen. The kidneys show no obvious hydronephrosis. The right kidney appears atrophic. There is a suggestion of cysts within the right kidney but this is grossly limited in terms of visualization. The gallbladder is demonstrated. The rectum appears low in location suggestive of prolapse and with a moderate degree of fecal retention. IMPRESSION: Limited evaluation due to artifact. Mild to moderate ascites Trace bilateral pleural effusions. Basilar atelectasis and/or infiltrate. Trace pericardial effusion Generalized cardiomegaly. Atherosclerotic vascular disease Extensive diverticulosis of the colon. No definite diverticulitis. Anasarca Gross catheter Query rectal prolapse reviewed US again lft's cont to rise likely liver decompensation trend (3) Severe sepsis Tristan Heller Mar 08, 2019 13:21
[2019-03-08] MEDS ORDERED: Tubing IV Secondary IV ONE (13:24)
[2019-03-08] MEDS ORDERED: Sterile Water Irrig 1000ml IRRIG ONE (13:24)
[2019-03-08] MEDS ORDERED: Hydrocortisone 100mg Inj IV SCH (14:00)
[2019-03-08] MEDS ORDERED: Midodrine 10mg tab GT SCH (18:00)
--- NOTE | 2019-03-08 18:00 | NUR ---
TRANSFER TO FLOOR: Patient transferred to SDU room 238-2, per Dr. Reis. Report given to Melvin Saldaña RN. NO Belongings reviewed with Melvin Saldaña RN. Remains Vent dependent. GT inplace. Gross cath and rectal tube inplace. Contact isolation observed.
--- NOTE | 2019-03-08 18:00 | NUR ---
NURSE NOTES: Received transfer from ANDREINA Rashid. Patient arrived to unit in stable condition. No s/sx of SOB, patient is vent, vent settings as ordered. Observed no presence of pain or discomfort at this time. Patient noted with rectal tube and martinez catheter. Bed is in lowest position, brakes engaged. Call light kept within easy reach. Will continue to monitor patient.
[2019-03-08] MEDS ORDERED: Acetaminophen 650mg/20.3ml GT PRN (19:00)
--- NOTE | 2019-03-08 19:15 | NUR ---
NURSE NOTES: Received patient from Melvin HDZ. Patient is asleep and receiving oxygen via trach to vent: Shiley 8, AC 16, TV 500, Fio2 35%, PEEP 5. G-tube is patent and receiving Vital AF @50cc/hr. Rectal tube is patent and draining. Gross catheter is intact and draining. Patient has a Left Upper Arm PICC patent and asymptomatic. Bed is locked, placed in lowest position, side rails up x3, bed alarm on, head of bed elevated, call light within reach. Will continue to monitor.
--- NOTE | 2019-03-08 19:26 | NUR ---
HAND-OFF: Report given to ANDREINA Canseco.
[2019-03-08] MEDS: Dyna-Hex 2% Top Sol 2oz TOPIC SCH (20:55)
[2019-03-08] MEDS: Hydrocortisone 100mg Inj IV SCH (22:04)
[2019-03-09] VITALS: BP 130/74
[2019-03-09 04:00] VITALS: BP 110/74
[2019-03-09 05:33] LABS: INR 1.4 (0.9-1.1)
[2019-03-09 05:43] LABS: HEMATOCRIT 28.3 % (37.0-47.0); MEAN CORPUSCULAR VOLUME 99 FL (80-99); PLATELET COUNT 69 K/UL (150-450); RED BLOOD COUNT 2.85 M/UL (4.20-5.40); RED CELL DISTRIBUTION WIDTH 17.9 % (11.6-14.8); WHITE BLOOD COUNT 5.8 K/UL (4.8-10.8)
[2019-03-09] MEDS: Hydrocortisone 100mg Inj IV SCH (05:56)
[2019-03-09 05:59] LABS: PHOSPHORUS 2.6 MG/DL (2.5-4.9)
[2019-03-09 06:07] LABS: ALANINE AMINOTRANSFERASE 17 U/L (12-78); ALBUMIN 1.7 G/DL (3.4-5.0); ALBUMIN/GLOBULIN RATIO 0.4 (1.0-2.7); ALKALINE PHOSPHATASE 133 U/L (46-116); ANION GAP 11 mmol/L (5-15); ASPARTATE AMINO TRANSFERASE 36 U/L (15-37); BILIRUBIN,TOTAL 1.3 MG/DL (0.2-1.0); BLOOD UREA NITROGEN 43 mg/dL (7-18); CARBON DIOXIDE 22 MMOL/L (21-32); CHLORIDE 111 MMOL/L (98-107); CREATININE 0.9 MG/DL (0.55-1.30); POTASSIUM 3.5 MMOL/L (3.5-5.1); SODIUM 144 MMOL/L (136-145)
[2019-03-09 06:19] LABS: BILIRUBIN,DIRECT 0.7 MG/DL (0.0-0.3)
--- NOTE | 2019-03-09 07:01 | NUR ---
HAND-OFF: Report given to Melvin HDZ.
--- NOTE | 2019-03-09 07:02 | NUR ---
NURSE NOTES: Received report from ANDREINA Canseco. No s/sx of SOB, breathing is even and unlabored, vent settings are as ordered. Observed no presence of pain or discomfort at this time. Bed is in lowest position, brakes engaged. Call light is kept within easy reach. Will continue to monitor patient.
[2019-03-09] MEDS: Albuterol/Ipratropium 3ml neb HHN PRN ×2 (07:03→12:55)
--- NOTE | 2019-03-09 07:06 | NUR ---
RESPIRATORY NOTE: Received Patient on Vent settings ACVC RR 16, Vt 500, FiO2 35%, Peep of 5. Patient is trached with a shiley 8, secured with trache ties. Suctioned moderate amount of thick fraser white secretions. Patient lying in bed comfortably. Vent plugged into red outlet. Alarms are on and audible, Will continue to monitor patient throughout the day.
[2019-03-09 08:00] VITALS: BP 119/66
[2019-03-09] MEDS: Midodrine 10mg tab GT SCH ×3 (08:18→17:24)
[2019-03-09] MEDS: Spironolactone 25mg tab GT SCH ×2 (08:19→17:24)
--- NOTE | 2019-03-09 08:58 | NUR ---
RESPIRATORY NOTE: Started weaning patient, placed patient on 10 PS. Patient is tolerating it well SpO2 is at 98%, breathing rate 21, RSBI is 47
[2019-03-09] MEDS ORDERED: Digoxin 0.125mg tab NG SCH (09:00)
--- NOTE | 2019-03-09 09:07 | NUR ---
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 * Increased kcal/prot needs R/T sepsis as evidenced by elev wbc -> now wnl, now afebrile, elev RR -> wnl, elev HR -> now wnl, elev LA (11.8 -> now wnl), hypotensive, pressor support held CURRENT TF:Vital AF 1.2 @50ml/hr x 24 hrs -> HELD FOR TRACH THIS AM ENTERAL NUTRITION RECOMMENDATIONS: Glucerna 1.2 @ 50ml/hr x 24 hrs to provide 1200ml, 1440kcal, 72g prot, 966ml free water Pt now in step down unit off pressor support. Rec Tf change to Glucerna 1.2. - Start @30ml/hr for 6 hrs - Advance as tolerated 10ml/hr q4-6 hrs to goal - Flush per MD/ HOB over 30 degrees ADDITIONAL RECOMMENDATIONS: * RECALIBRATED BEDSCALE WT Per SNF, HT=65", NK=[id number] (02/14/19) VS EMR [id number] * Monitor hemodynamic stability: pressor support held * Monitor lytes closely, replete as needed * Wound healing: add Vit C 250mg QD + Beni 1pkt BID * Rec NISS for BG control: BGs elev (238 [id number]), on steroidal med q8 .
--- NOTE | 2019-03-09 09:20 | NUR ---
*-* INSURANCE *-* ALL CLINICALS AND REVIEWS HAVE BEEN FAXED TO: MARGARITA Clement Ref#[id number] CM: Dung #[phone] ext [phone] fax#[phone]
--- NOTE | 2019-03-09 09:37 | General Progress Note ---
Assessment/Plan Problem List: (1) Septic shock ICD Codes: A41.9 - Sepsis, unspecified organism; R65.21 - Severe sepsis with septic shock SNOMED: 16321822 (2) UTI (urinary tract infection) ICD Codes: N39.0 - Urinary tract infection, site not specified SNOMED: 94604787 Qualifiers: Qualified Codes: N39.0 - Urinary tract infection, site not specified (3) Renal failure ICD Codes: N19 - Unspecified kidney failure SNOMED: 94623309 Qualifiers: Qualified Codes: N17.9 - Acute kidney failure, unspecified (4) Abdominal pain ICD Codes: R10.9 - Unspecified abdominal pain SNOMED: 61561525 Qualifiers: Qualified Codes: R10.32 - Left lower quadrant pain (5) Severe sepsis ICD Codes: A41.9 - Sepsis, unspecified organism; R65.20 - Severe sepsis without septic shock SNOMED: 25278835 (6) Dehydration ICD Codes: E86.0 - Dehydration SNOMED: 93824554 (7) Atrial fibrillation with rapid ventricular response ICD Codes: I48.91 - Unspecified atrial fibrillation SNOMED: 725445402192077 Status: stable, not improved, deteriorating Assessment/Plan: cont supportive care wean vent as able resp rx suctioning trach care midodrine wean iv hydrocortisone to 25 q12 resp rx and suctioning as needed monitor labs scd iv abx per id tube feeds Subjective ROS Limited/Unobtainable: No Constitutional: Reports: malaise, weakness HEENT: Reports: no symptoms Cardiovascular: Reports: no symptoms Respiratory: Reports: cough, shortness of breath, sputum Gastrointestinal/Abdominal: Reports: difficulty swallowing Genitourinary: Reports: no symptoms Neurologic/Psychiatric: Reports: pre-existing deficit Endocrine: Reports: no symptoms Hematologic/Lymphatic: Reports: no symptoms Allergies: Coded Allergies: No Known Allergies (Unverified , 02/19/19) All Systems: reviewed and negative except above Subjective no events. remains off pressors. transferred to [facility]. BP improving Objective Last 24 Hour Vital Signs Date Time Temp Pulse Resp B/P (MAP) Pulse Ox O2 Delivery O2 Flow Rate FiO2 03/09/19 09:00 87 21 35 03/09/19 08:52 99 03/09/19 08:19 90 03/09/19 08:00 95.0 88 19 119/66 (83) 100 03/09/19 07:04 89 21 35 03/09/19 05:24 82 17 35 03/09/19 04:00 35 03/09/19 04:00 97.3 87 19 110/74 (86) 100 03/09/19 04:00 Mechanical Ventilator 03/09/19 03:34 76 03/09/19 02:30 90 20 35 03/09/19 01:22 83 19 35 03/09/19 00:00 97.0 85 17 130/74 (92) 100 03/09/19 00:00 Mechanical Ventilator 03/08/19 23:40 87 03/08/19 22:46 81 24 35 03/08/19 21:14 84 26 35 03/08/19 20:00 97.0 88 16 109/66 (80) 100 03/08/19 20:00 Mechanical Ventilator 03/08/19 20:00 35 03/08/19 19:25 77 03/08/19 19:11 82 24 100 Mechanical Ventilator 35 83 24 35 03/08/19 18:00 97.7 85 18 125/70 (88) 100 03/08/19 18:00 80 03/08/19 17:24 84 27 35 03/08/19 17:00 80 16 115/71 (86) 99 03/08/19 16:09 83 03/08/19 16:00 35 03/08/19 16:00 Mechanical Ventilator 03/08/19 16:00 97.7 90 16 99/68 (78) 100 03/08/19 15:28 85 17 35 03/08/19 15:00 90 16 100/63 (75) 100 03/08/19 14:00 87 16 106/67 (80) 100 03/08/19 13:22 79 19 100 Mechanical Ventilator 35 84 17 35 03/08/19 13:00 84 25 112/63 (79) 100 03/08/19 12:27 82 03/08/19 12:00 97.8 87 28 105/64 (78) 94 03/08/19 12:00 35 03/08/19 12:00 Mechanical Ventilator 03/08/19 11:18 80 17 35 03/08/19 11:00 82 25 103/60 (74) 100 03/08/19 10:00 88 27 102/56 (71) 100 Intake and Output 03/08/19 03/09/19 19:00 07:00 Intake Total 600 ml 800 ml Output Total 370 ml 500 ml Balance 230 ml 300 ml Free Water 200 ml Tube Feeding 600 ml 600 ml Output Urine Total 270 ml 500 ml Stool Total 100 ml Laboratory Tests 03/08/19 10:40: C-Reactive Protein, Quantitative 16.5H 03/09/19 03:30: White Blood Count 5.8, Red Blood Count 2.85L, Hemoglobin 9.0L, Hematocrit 28.3L , Mean Corpuscular Volume 99, Mean Corpuscular Hemoglobin 31.6H, Mean Corpuscular Hemoglobin Concent 31.8L, Red Cell Distribution Width 17.9H, Platelet Count 69L, Mean Platelet Volume 9.5, Neutrophils (%) (Auto) , Lymphocytes (%) (Auto) , Monocytes (%) (Auto) , Eosinophils (%) (Auto) , Basophils (%) (Auto) , Prothrombin Time 14.5H, Prothromb Time International Ratio 1.4H, Sodium Level 144, Potassium Level 3.5, Chloride Level 111H, Carbon Dioxide Level 22, Anion Gap 11, Blood Urea Nitrogen 43H, Creatinine 0.9, Estimat Glomerular Filtration Rate , Glucose Level 238H, Calcium Level 8.0L, Phosphorus Level 2.6, Magnesium Level 1.9, Total Bilirubin 1.3H, Direct Bilirubin 0.7H, Aspartate Amino Transf (AST/SGOT) 36, Alanine Aminotransferase ( ALT/SGPT) 17, Alkaline Phosphatase 133H, Pro-B-Type Natriuretic Peptide 23628Z, Total Protein 5.7L, Albumin 1.7L, Globulin 4.0, Albumin/Globulin Ratio 0.4L, Digoxin Level 1.9 Height (Feet): 5 Height (Inches): 5.00 Weight (Pounds): 159 Objective General Appearance: WD/WN, confused. more responsive, Neck: supple, trach site clean. no bleeding Cardiovascular: irregularly irregular Respiratory/Chest: chest wall non-tender, lungs clear, normal breath sounds, no respiratory distress Abdomen: normal bowel sounds, non tender, soft, no organomegaly Edema: no edema noted Arm (L), no edema noted Arm (R), no edema noted Leg (L), no edema noted Leg (R), no edema noted Pedal (L), no edema noted Pedal (R), no edema noted Generalized Neurologic: disoriented Mitchel Reis MD Mar 09, 2019 09:37
--- NOTE | 2019-03-09 10:03 | Infectious Diseases Prog Note ---
Assessment/Plan Assessment/Plan antibiotics ; none A 1. pneumonia s/p rx 2. fungal UTI s/p rx 3. renal failure 4. septic shock 5. CHF 6. dementia 7. thrombocytopenia 8. respiratory failure P 1. continue off antibiotics 2. will follow up clinically Subjective ROS Limited/Unobtainable: Yes Allergies: Coded Allergies: No Known Allergies (Unverified , 02/19/19) Objective Vital Signs Last 24 Hour Vital Signs Date Time Temp Pulse Resp B/P (MAP) Pulse Ox O2 Delivery O2 Flow Rate FiO2 03/09/19 09:00 87 21 35 03/09/19 08:52 99 03/09/19 08:19 90 03/09/19 08:00 95.0 88 19 119/66 (83) 100 03/09/19 07:04 89 21 35 03/09/19 05:24 82 17 35 03/09/19 04:00 35 03/09/19 04:00 97.3 87 19 110/74 (86) 100 03/09/19 04:00 Mechanical Ventilator 03/09/19 03:34 76 03/09/19 02:30 90 20 35 03/09/19 01:22 83 19 35 03/09/19 00:00 97.0 85 17 130/74 (92) 100 03/09/19 00:00 Mechanical Ventilator 03/08/19 23:40 87 03/08/19 22:46 81 24 35 03/08/19 21:14 84 26 35 03/08/19 20:00 97.0 88 16 109/66 (80) 100 03/08/19 20:00 Mechanical Ventilator 03/08/19 20:00 35 03/08/19 19:25 77 03/08/19 19:11 82 24 100 Mechanical Ventilator 35 83 24 35 03/08/19 18:00 97.7 85 18 125/70 (88) 100 03/08/19 18:00 80 03/08/19 17:24 84 27 35 03/08/19 17:00 80 16 115/71 (86) 99 03/08/19 16:09 83 03/08/19 16:00 35 03/08/19 16:00 Mechanical Ventilator 03/08/19 16:00 97.7 90 16 99/68 (78) 100 03/08/19 15:28 85 17 35 03/08/19 15:00 90 16 100/63 (75) 100 03/08/19 14:00 87 16 106/67 (80) 100 03/08/19 13:22 79 19 100 Mechanical Ventilator 35 84 17 35 03/08/19 13:00 84 25 112/63 (79) 100 03/08/19 12:27 82 03/08/19 12:00 97.8 87 28 105/64 (78) 94 03/08/19 12:00 35 03/08/19 12:00 Mechanical Ventilator 03/08/19 11:18 80 17 35 03/08/19 11:00 82 25 103/60 (74) 100 Height (Feet): 5 Height (Inches): 5.00 Weight (Pounds): 159 HEENT: status post trach Respiratory/Chest: lungs clear Cardiovascular: normal rate, regular rhythm, no gallop/murmur Abdomen: soft, non tender, other - GT Extremities: no edema, other - left arm PICC Microbiology Date/Time Source Procedure Growth Status 03/06/19 11:40 Stool Clostridium difficile Toxin Assay - Final Complete Laboratory Tests Test 03/08/19 10:40 03/09/19 03:30 C-Reactive Protein, Quantitative 16.5 mg/dL (0.00-0.90) H White Blood Count 5.8 K/UL (4.8-10.8) Red Blood Count 2.85 M/UL (4.20-5.40) L Hemoglobin 9.0 G/DL (12.0-16.0) L Hematocrit 28.3 % (37.0-47.0) L Mean Corpuscular Volume 99 FL (80-99) Mean Corpuscular Hemoglobin 31.6 PG (27.0-31.0) H Mean Corpuscular Hemoglobin Concent 31.8 G/DL (32.0-36.0) L Red Cell Distribution Width 17.9 % (11.6-14.8) H Platelet Count 69 K/UL (150-450) L Mean Platelet Volume 9.5 FL (6.5-10.1) Neutrophils (%) (Auto) % (45.0-75.0) Lymphocytes (%) (Auto) % (20.0-45.0) Monocytes (%) (Auto) % (1.0-10.0) Eosinophils (%) (Auto) % (0.0-3.0) Basophils (%) (Auto) % (0.0-2.0) Prothrombin Time 14.5 SEC (9.30-11.50) H Prothromb Time International Ratio 1.4 (0.9-1.1) H Sodium Level 144 MMOL/L (136-145) Potassium Level 3.5 MMOL/L (3.5-5.1) Chloride Level 111 MMOL/L (98-107) H Carbon Dioxide Level 22 MMOL/L (21-32) Anion Gap 11 mmol/L (5-15) Blood Urea Nitrogen 43 mg/dL (7-18) H Creatinine 0.9 MG/DL (0.55-1.30) Estimat Glomerular Filtration Rate mL/min (>60) Glucose Level 238 MG/DL (74-106) H Calcium Level 8.0 MG/DL (8.5-10.1) L Phosphorus Level 2.6 MG/DL (2.5-4.9) Magnesium Level 1.9 MG/DL (1.8-2.4) Total Bilirubin 1.3 MG/DL (0.2-1.0) H Direct Bilirubin 0.7 MG/DL (0.0-0.3) H Aspartate Amino Transf (AST/SGOT) 36 U/L (15-37) Alanine Aminotransferase (ALT/SGPT) 17 U/L (12-78) Alkaline Phosphatase 133 U/L (46-116) H Pro-B-Type Natriuretic Peptide 42577 pg/mL (0-125) H Total Protein 5.7 G/DL (6.4-8.2) L Albumin 1.7 G/DL (3.4-5.0) L Globulin 4.0 g/dL Albumin/Globulin Ratio 0.4 (1.0-2.7) L Digoxin Level 1.9 NG/ML (0.9-2.0) Current Medications Medications (Trade) Dose Ordered Sig/Pam Route PRN Reason Start Time Stop Time Status Last Admin Dose Admin Acetaminophen (Tylenol) 650 mg Q4H PRN GT Mild Pain/Temp > 100.5 03/08/19 19:00 03/21/19 17:14 Acetylcysteine (Mucomyst) 100 mg TIDRT HHN 03/08/19 19:00 04/03/19 09:14 03/09/19 07:03 Albuterol/ Ipratropium (Albuterol/ Ipratropium) 3 ml Q4H PRN HHN Shortness of Breath 03/08/19 18:30 03/09/19 18:29 03/09/19 07:03 Chlorhexidine Gluconate (Dayna-Hex 2%) 1 applic DAILY@2000 TOPIC 03/08/19 20:00 03/22/19 19:59 03/08/19 20:55 Digoxin (Lanoxin) 0.125 mg DAILY NG 03/09/19 09:00 04/03/19 08:59 03/09/19 08:19 Famotidine (Pepcid) 20 mg DAILY GT 03/09/19 09:00 04/06/19 08:59 03/09/19 08:18 Hydrocortisone (Solu-CORTEF) 25 mg EVERY 12 HOURS IV 03/09/19 21:00 04/08/19 20:59 Midodrine (Pro-Amatine) 10 mg THREE TIMES A DAY GT 03/09/19 09:00 04/04/19 08:59 03/09/19 08:18 Spironolactone (Aldactone) 25 mg BID GT 03/09/19 09:00 04/06/19 08:59 03/09/19 08:19 Shelbie Howell MD Mar 09, 2019 10:03
--- NOTE | 2019-03-09 10:04 | NUR ---
CASE MANAGEMENT:REVIEW 03/09/19 SI: AC/CHR RESPIRATORY FAILURE POD #3.......S/P TRACHEOSTOMY 96.0 88 19 119/66 100% ON VENT SUPPORT 35% FIO2 H/H-9.0/28.3 PLT-69 BUN+43 IS: FLAGYL GT Q8HRS IV SOLUCORTEF Q12HRS ALDACTONE GT QD MIDODRINE NG TID DIGOXIN GT QD IV PROTONIX Q12 MUCOMYST INH TID : ICU STATUS DCP: FROM [facility] ~ WILL NEED SUBACUTE
[2019-03-09] MEDS ORDERED: NS 275ml ONE (10:40)
--- NOTE | 2019-03-09 11:52 | Nephrology Progress Note ---
Assessment/Plan Problem List: (1) Acute respiratory failure Assessment: trached 03/06 (2) Septic shock (3) Renal failure (4) Atrial fibrillation with rapid ventricular response (5) Cardiomyopathy Assessment Renal failure - ? Acute on Chronic, Partly dehydration Septic Shock UTI AT Fib with FVR h/o DM, proteinuria , HypoAlbuminemia Plan post trach Kayexelate as needed dig IV one dose given previously Midodrine K and Mag supplement as needed pulm support per consultants previously: stop NS intubated On 2 pressors BP remains low Poor prognosis - remains full code for now slow Hydrate 2D echo EjFx 40% antibiotics monitor renal parameters avoid nephrotoxics per orders Subjective ROS Limited/Unobtainable: Yes Objective Objective Last 24 Hour Vital Signs Date Time Temp Pulse Resp B/P (MAP) Pulse Ox O2 Delivery O2 Flow Rate FiO2 03/09/19 10:36 90 23 35 03/09/19 10:09 96.9 03/09/19 09:00 87 21 35 03/09/19 08:52 99 03/09/19 08:19 90 03/09/19 08:00 Mechanical Ventilator 03/09/19 08:00 83 03/09/19 08:00 35 03/09/19 08:00 95.0 88 19 119/66 (83) 100 03/09/19 07:04 89 21 35 03/09/19 05:24 82 17 35 03/09/19 04:00 35 03/09/19 04:00 97.3 87 19 110/74 (86) 100 03/09/19 04:00 Mechanical Ventilator 03/09/19 03:34 76 03/09/19 02:30 90 20 35 03/09/19 01:22 83 19 35 03/09/19 00:00 97.0 85 17 130/74 (92) 100 03/09/19 00:00 Mechanical Ventilator 03/08/19 23:40 87 03/08/19 22:46 81 24 35 03/08/19 21:14 84 26 35 03/08/19 20:00 97.0 88 16 109/66 (80) 100 03/08/19 20:00 Mechanical Ventilator 03/08/19 20:00 35 03/08/19 19:25 77 03/08/19 19:11 82 24 100 Mechanical Ventilator 35 83 24 35 03/08/19 18:00 97.7 85 18 125/70 (88) 100 03/08/19 18:00 80 03/08/19 17:24 84 27 35 03/08/19 17:00 80 16 115/71 (86) 99 03/08/19 16:09 83 03/08/19 16:00 35 03/08/19 16:00 Mechanical Ventilator 03/08/19 16:00 97.7 90 16 99/68 (78) 100 03/08/19 15:28 85 17 35 03/08/19 15:00 90 16 100/63 (75) 100 03/08/19 14:00 87 16 106/67 (80) 100 03/08/19 13:22 79 19 100 Mechanical Ventilator 35 84 17 35 03/08/19 13:00 84 25 112/63 (79) 100 03/08/19 12:27 82 03/08/19 12:00 97.8 87 28 105/64 (78) 94 03/08/19 12:00 35 03/08/19 12:00 Mechanical Ventilator Intake and Output 03/08/19 03/09/19 19:00 07:00 Intake Total 600 ml 800 ml Output Total 370 ml 500 ml Balance 230 ml 300 ml Free Water 200 ml Tube Feeding 600 ml 600 ml Output Urine Total 270 ml 500 ml Stool Total 100 ml Laboratory Tests 03/09/19 03:30: White Blood Count 5.8, Red Blood Count 2.85L, Hemoglobin 9.0L, Hematocrit 28.3L , Mean Corpuscular Volume 99, Mean Corpuscular Hemoglobin 31.6H, Mean Corpuscular Hemoglobin Concent 31.8L, Red Cell Distribution Width 17.9H, Platelet Count 69L, Mean Platelet Volume 9.5, Neutrophils (%) (Auto) , Lymphocytes (%) (Auto) , Monocytes (%) (Auto) , Eosinophils (%) (Auto) , Basophils (%) (Auto) , Prothrombin Time 14.5H, Prothromb Time International Ratio 1.4H, Sodium Level 144, Potassium Level 3.5, Chloride Level 111H, Carbon Dioxide Level 22, Anion Gap 11, Blood Urea Nitrogen 43H, Creatinine 0.9, Estimat Glomerular Filtration Rate , Glucose Level 238H, Calcium Level 8.0L, Phosphorus Level 2.6, Magnesium Level 1.9, Total Bilirubin 1.3H, Direct Bilirubin 0.7H, Aspartate Amino Transf (AST/SGOT) 36, Alanine Aminotransferase ( ALT/SGPT) 17, Alkaline Phosphatase 133H, Pro-B-Type Natriuretic Peptide 26016B, Total Protein 5.7L, Albumin 1.7L, Globulin 4.0, Albumin/Globulin Ratio 0.4L, Digoxin Level 1.9 Height (Feet): 5 Height (Inches): 5.00 Weight (Pounds): 159 General Appearance: no apparent distress EENT: other - trach Cardiovascular: tachycardia Respiratory/Chest: decreased breath sounds Abdomen: soft Objective no change Jt Louis MD Mar 09, 2019 11:52
[2019-03-09 12:00] VITALS: BP 115/77
--- NOTE | 2019-03-09 12:03 | Pulmonolgy Critical Care Note ---
Critical Care - Asmt/Plan Assessment/Plan: Pulmonary CCM Progress Note Assessment/Plan ASSESSMENT: acute on chronic encephalopathy, Hepatitis C, dementia, chronic atrial fibrillation, hypertension, diastolic congestive heart failure, septic shock, hypothermia, hypotension, hypoxemia severe PCM, thrombocytopenia, anemia, leukocytosis, acute renal failure tachycardia, remains on Vent support, s/p Tracheostomy PLAN care noted and reviewed in detail ICU management reviewed in detail vent management - still on full vent support and difficult to wean keep negative as per cardiology meds reviewed monitor acid base supportive care reviewed full code as outlined pressors to off IV antibiotics ID noted respiratory care SNF meds noted monitor feeds and reflux suction and monitor imaging monitor for aspiration and change oxygen therapy as needed all care reviewed in detail ICU care reviewed close follow up of acid base closely needs trach as unable to wean remains very ill at present medications/laboratory data/nursing notes/ICU care reviewed in detail note reviewed and edited care discussed with RN and RT ICU time spent 40 minutes Critical Care - Subjective Interval Events: findings noted remains ill chronically vent ICU care reviewed ROS Limited/Unobtainable: Yes Condition: critical EKG Rhythm: Sinus Rhythm Residuals: minimal Tube Feeding Tolerated: yes Critical Care - Objective Tracheostomy Vital Signs Noted Labs Test 03/04/19 05:17 03/05/19 03:30 03/05/19 08:40 03/06/19 04:00 White Blood Count 12.2 K/UL (4.8-10.8) 12.8 K/UL (4.8-10.8) 9.4 K/UL (4.8-10.8) Red Blood Count 2.85 M/UL (4.20-5.40) 2.94 M/UL (4.20-5.40) 2.59 M/UL (4.20-5.40) Hemoglobin 9.1 G/DL (12.0-16.0) 9.4 G/DL (12.0-16.0) 8.1 G/DL (12.0-16.0) Hematocrit 28.5 % (37.0-47.0) 28.9 % (37.0-47.0) 25.6 % (37.0-47.0) Mean Corpuscular Volume 100 FL (80-99) 98 FL (80-99) 99 FL (80-99) Mean Corpuscular Hemoglobin 32.0 PG (27.0-31.0) 32.1 PG (27.0-31.0) 31.4 PG (27.0-31.0) Mean Corpuscular Hemoglobin Concent 32.0 G/DL (32.0-36.0) 32.6 G/DL (32.0-36.0) 31.8 G/DL (32.0-36.0) Red Cell Distribution Width 18.9 % (11.6-14.8) 18.2 % (11.6-14.8) 18.8 % (11.6-14.8) Platelet Count 72 K/UL (150-450) 75 K/UL (150-450) 62 K/UL (150-450) Mean Platelet Volume 9.1 FL (6.5-10.1) 8.4 FL (6.5-10.1) 7.5 FL (6.5-10.1) Neutrophils (%) (Auto) % (45.0-75.0) % (45.0-75.0) % (45.0-75.0) Lymphocytes (%) (Auto) % (20.0-45.0) % (20.0-45.0) % (20.0-45.0) Monocytes (%) (Auto) % (1.0-10.0) % (1.0-10.0) % (1.0-10.0) Eosinophils (%) (Auto) % (0.0-3.0) % (0.0-3.0) % (0.0-3.0) Basophils (%) (Auto) % (0.0-2.0) % (0.0-2.0) % (0.0-2.0) Differential Total Cells Counted 100 100 100 Neutrophils % (Manual) 82 % (45-75) 90 % (45-75) 95 % (45-75) Lymphocytes % (Manual) 10 % (20-45) 5 % (20-45) 4 % (20-45) Monocytes % (Manual) 6 % (1-10) 5 % (1-10) 1 % (1-10) Eosinophils % (Manual) 1 % (0-3) 0 % (0-3) 0 % (0-3) Basophils % (Manual) 0 % (0-2) 0 % (0-2) 0 % (0-2) Band Neutrophils 1 % (0-8) 0 % (0-8) 0 % (0-8) Platelet Estimate Decreased Decreased Decreased Platelet Morphology Normal Normal Normal Hypochromasia 1+ 1+ Anisocytosis 2+ 1+ 1+ Macrocytosis 1+ 1+ Ovalocytes Occasional Sodium Level 145 MMOL/L (136-145) 145 MMOL/L (136-145) 142 MMOL/L (136-145) 146 MMOL/L (136-145) Potassium Level 3.9 MMOL/L (3.5-5.1) 3.7 MMOL/L (3.5-5.1) 3.6 MMOL/L (3.5-5.1) 3.6 MMOL/L (3.5-5.1) Chloride Level 113 MMOL/L (98-107) 112 MMOL/L (98-107) 112 MMOL/L (98-107) 112 MMOL/L (98-107) Carbon Dioxide Level 25 MMOL/L (21-32) 23 MMOL/L (21-32) 28 MMOL/L (21-32) 24 MMOL/L (21-32) Anion Gap 7 mmol/L (5-15) 10 mmol/L (5-15) 3 mmol/L (5-15) 10 mmol/L (5-15) Blood Urea Nitrogen 33 mg/dL (7-18) 32 mg/dL (7-18) 34 mg/dL (7-18) 37 mg/dL (7-18) Creatinine 1.0 MG/DL (0.55-1.30) 0.9 MG/DL (0.55-1.30) 0.9 MG/DL (0.55-1.30) 0.9 MG/DL (0.55-1.30) Estimat Glomerular Filtration Rate mL/min (>60) mL/min (>60) mL/min (>60) mL/min (>60) Glucose Level 173 MG/DL (74-106) 149 MG/DL (74-106) 155 MG/DL (74-106) 181 MG/DL (74-106) Uric Acid 6.5 MG/DL (2.6-7.2) Calcium Level 7.7 MG/DL (8.5-10.1) 7.7 MG/DL (8.5-10.1) 7.5 MG/DL (8.5-10.1) 7.7 MG/DL (8.5-10.1) Phosphorus Level 2.9 MG/DL (2.5-4.9) Magnesium Level 1.8 MG/DL (1.8-2.4) Total Bilirubin 2.4 MG/DL (0.2-1.0) 2.3 MG/DL (0.2-1.0) 2.4 MG/DL (0.2-1.0) 1.9 MG/DL (0.2-1.0) Direct Bilirubin 1.8 MG/DL (0.0-0.3) 1.7 MG/DL (0.0-0.3) 1.8 MG/DL (0.0-0.3) 1.3 MG/DL (0.0-0.3) Aspartate Amino Transf (AST/SGOT) 80 U/L (15-37) 85 U/L (15-37) 79 U/L (15-37) 55 U/L (15-37) Alanine Aminotransferase (ALT/SGPT) 54 U/L (12-78) 51 U/L (12-78) 58 U/L (12-78) 40 U/L (12-78) Alkaline Phosphatase 203 U/L (46-116) 212 U/L (46-116) 205 U/L (46-116) 162 U/L (46-116) Total Protein 5.4 G/DL (6.4-8.2) 5.3 G/DL (6.4-8.2) 4.9 G/DL (6.4-8.2) 5.4 G/DL (6.4-8.2) Albumin 1.5 G/DL (3.4-5.0) 1.5 G/DL (3.4-5.0) 1.5 G/DL (3.4-5.0) 1.8 G/DL (3.4-5.0) Globulin 3.9 g/dL 3.8 g/dL 3.4 g/dL 3.6 g/dL Albumin/Globulin Ratio 0.4 (1.0-2.7) 0.4 (1.0-2.7) 0.4 (1.0-2.7) 0.5 (1.0-2.7 ) Digoxin Level 2.2 NG/ML (0.9-2.0) 1.5 NG/ML (0.9-2.0) Polychromasia 1+ Erythrocyte Sedimentation Rate 90 MM/HR (0-30) Prothrombin Time 11.4 SEC (9.30-11.50) Prothromb Time International Ratio 1.1 (0.9-1.1) Activated Partial Thromboplast Time 36 SEC (23-33) Amylase Level 145 U/L (25-115) Lipase 862 U/L (73-393) Objective: PHYSICAL EXAMINATION: GENERAL: The patient is a chronically ill-appearing female, on VENT and not weaning yet NECK: Supple. There is a central line in the right subclavian area. Trach CDI HEART: iRRR.without MRG LUNGS: reduced breath sounds with some rhonchi; no wheeze ABDOMEN: Soft, nontender, nondistended. no HSM EXTREMITIES: No clubbing, cyanosis, or edema. NEURO: response to pain skin noted reviewed and edited Critical Care - Objective Last 24 Hour Vital Signs Date Time Temp Pulse Resp B/P (MAP) Pulse Ox O2 Delivery O2 Flow Rate FiO2 03/09/19 10:36 90 23 35 03/09/19 10:09 96.9 03/09/19 09:00 87 21 35 03/09/19 08:52 99 03/09/19 08:19 90 03/09/19 08:00 Mechanical Ventilator 03/09/19 08:00 83 03/09/19 08:00 35 03/09/19 08:00 95.0 88 19 119/66 (83) 100 03/09/19 07:04 89 21 35 03/09/19 05:24 82 17 35 03/09/19 04:00 35 03/09/19 04:00 97.3 87 19 110/74 (86) 100 03/09/19 04:00 Mechanical Ventilator 03/09/19 03:34 76 03/09/19 02:30 90 20 35 03/09/19 01:22 83 19 35 03/09/19 00:00 97.0 85 17 130/74 (92) 100 03/09/19 00:00 Mechanical Ventilator 03/08/19 23:40 87 03/08/19 22:46 81 24 35 03/08/19 21:14 84 26 35 03/08/19 20:00 97.0 88 16 109/66 (80) 100 03/08/19 20:00 Mechanical Ventilator 03/08/19 20:00 35 03/08/19 19:25 77 03/08/19 19:11 82 24 100 Mechanical Ventilator 35 83 24 35 03/08/19 18:00 97.7 85 18 125/70 (88) 100 03/08/19 18:00 80 03/08/19 17:24 84 27 35 03/08/19 17:00 80 16 115/71 (86) 99 03/08/19 16:09 83 03/08/19 16:00 35 03/08/19 16:00 Mechanical Ventilator 03/08/19 16:00 97.7 90 16 99/68 (78) 100 03/08/19 15:28 85 17 35 03/08/19 15:00 90 16 100/63 (75) 100 03/08/19 14:00 87 16 106/67 (80) 100 03/08/19 13:22 79 19 100 Mechanical Ventilator 35 84 17 35 03/08/19 13:00 84 25 112/63 (79) 100 03/08/19 12:27 82 Accucheck: 72 Critical Care - Subjective ROS Limited/Unobtainable: No FI02: 35 Vent Support Breath Rate: 16 Vent Support Mode: CPAP Vent Tidal Volume: 500 Sputum Amount: Small PEEP: 5.0 PIP: 16 Tube Feeding Amount: 50 I&O: Intake and Output 03/08/19 03/09/19 19:00 07:00 Intake Total 600 ml 800 ml Output Total 370 ml 500 ml Balance 230 ml 300 ml Free Water 200 ml Tube Feeding 600 ml 600 ml Output Urine Total 270 ml 500 ml Stool Total 100 ml ET-Tube: 7.0 ET Position: 22 Jimmie Puckett MD Mar 09, 2019 12:03
--- NOTE | 2019-03-09 13:15 | NUR ---
DISCHARGE PLANNING PATIENT HAS BEEN REFERRED TO [facility] AND [facility] OFF[facility] IS CLOSED TODAY
[2019-03-09 16:00] VITALS: BP 148/87
--- NOTE | 2019-03-09 16:36 | NUR ---
RESPIRATORY NOTE: Placed patient back on ACVC due i increased heart rate and decreased SpO2 dropped to 91%. Patient tolerated being on Pressure support of 10 for 8 hours.
--- NOTE | 2019-03-09 16:43 | Surgery Progress Note ---
Surgery Progress Note Subjective Procedure Performed tracheostomy Additional Comments Patient seen and examined bedside. Comfortable. Downgraded from ICU. Leukocytosis resolved. Weaning off vent very well. Objective Last 24 Hour Vital Signs Date Time Temp Pulse Resp B/P (MAP) Pulse Ox O2 Delivery O2 Flow Rate FiO2 03/09/19 16:39 117 26 35 03/09/19 16:00 98.8 112 19 148/87 (107) 95 03/09/19 16:00 Mechanical Ventilator 03/09/19 15:03 102 32 35 03/09/19 12:51 100 28 97 Mechanical Ventilator 35 102 28 35 03/09/19 12:00 98.1 96 19 115/77 (90) 95 03/09/19 12:00 Mechanical Ventilator 03/09/19 12:00 102 03/09/19 10:36 90 23 35 03/09/19 10:09 96.9 03/09/19 09:00 87 21 35 03/09/19 08:52 99 03/09/19 08:19 90 03/09/19 08:00 Mechanical Ventilator 03/09/19 08:00 83 03/09/19 08:00 35 03/09/19 08:00 95.0 88 19 119/66 (83) 100 03/09/19 07:04 89 21 100 Mechanical Ventilator 35 82 22 35 03/09/19 05:24 82 17 35 03/09/19 04:00 35 03/09/19 04:00 97.3 87 19 110/74 (86) 100 03/09/19 04:00 Mechanical Ventilator 03/09/19 03:34 76 03/09/19 02:30 90 20 35 03/09/19 01:22 83 19 35 03/09/19 00:00 97.0 85 17 130/74 (92) 100 03/09/19 00:00 Mechanical Ventilator 03/08/19 23:40 87 03/08/19 22:46 81 24 35 03/08/19 21:14 84 26 35 03/08/19 20:00 97.0 88 16 109/66 (80) 100 03/08/19 20:00 Mechanical Ventilator 03/08/19 20:00 35 03/08/19 19:25 77 03/08/19 19:11 82 24 100 Mechanical Ventilator 35 83 24 35 03/08/19 18:00 97.7 85 18 125/70 (88) 100 03/08/19 18:00 80 03/08/19 17:24 84 27 35 03/08/19 17:00 80 16 115/71 (86) 99 I&O Intake and Output 03/08/19 03/09/19 19:00 07:00 Intake Total 600 ml 800 ml Output Total 370 ml 500 ml Balance 230 ml 300 ml Free Water 200 ml Tube Feeding 600 ml 600 ml Output Urine Total 270 ml 500 ml Stool Total 100 ml Dressing: dry Wound: dry Cardiovascular: RSR Respiratory: decreased breath sounds Abdomen: soft, present bowel sounds Extremities: no cyanosis, other Laboratory Tests Test 03/09/19 03:30 White Blood Count 5.8 K/UL (4.8-10.8) Red Blood Count 2.85 M/UL (4.20-5.40) L Hemoglobin 9.0 G/DL (12.0-16.0) L Hematocrit 28.3 % (37.0-47.0) L Mean Corpuscular Volume 99 FL (80-99) Mean Corpuscular Hemoglobin 31.6 PG (27.0-31.0) H Mean Corpuscular Hemoglobin Concent 31.8 G/DL (32.0-36.0) L Red Cell Distribution Width 17.9 % (11.6-14.8) H Platelet Count 69 K/UL (150-450) L Mean Platelet Volume 9.5 FL (6.5-10.1) Neutrophils (%) (Auto) % (45.0-75.0) Lymphocytes (%) (Auto) % (20.0-45.0) Monocytes (%) (Auto) % (1.0-10.0) Eosinophils (%) (Auto) % (0.0-3.0) Basophils (%) (Auto) % (0.0-2.0) Prothrombin Time 14.5 SEC (9.30-11.50) H Prothromb Time International Ratio 1.4 (0.9-1.1) H Sodium Level 144 MMOL/L (136-145) Potassium Level 3.5 MMOL/L (3.5-5.1) Chloride Level 111 MMOL/L (98-107) H Carbon Dioxide Level 22 MMOL/L (21-32) Anion Gap 11 mmol/L (5-15) Blood Urea Nitrogen 43 mg/dL (7-18) H Creatinine 0.9 MG/DL (0.55-1.30) Estimat Glomerular Filtration Rate mL/min (>60) Glucose Level 238 MG/DL (74-106) H Calcium Level 8.0 MG/DL (8.5-10.1) L Phosphorus Level 2.6 MG/DL (2.5-4.9) Magnesium Level 1.9 MG/DL (1.8-2.4) Total Bilirubin 1.3 MG/DL (0.2-1.0) H Direct Bilirubin 0.7 MG/DL (0.0-0.3) H Aspartate Amino Transf (AST/SGOT) 36 U/L (15-37) Alanine Aminotransferase (ALT/SGPT) 17 U/L (12-78) Alkaline Phosphatase 133 U/L (46-116) H Pro-B-Type Natriuretic Peptide 56153 pg/mL (0-125) H Total Protein 5.7 G/DL (6.4-8.2) L Albumin 1.7 G/DL (3.4-5.0) L Globulin 4.0 g/dL Albumin/Globulin Ratio 0.4 (1.0-2.7) L Digoxin Level 1.9 NG/ML (0.9-2.0) Plan Problems: (1) Septic shock Assessment & Plan: 78-year-old female in septic shock in the intensive care unit on pressors. Leukocytosis, anemia, abnormal labs. Tachycardic. On respiratory support. On examination patient identified to have slowed capillary refill in the distal extremities. Patient furthermore identified to have a weeping wound in the right great toe. Patient is currently very ill and septic and requiring pressors. Unfortunately given her medical condition comorbidities and history there is potential for distal vasoconstriction and potentially even necrosis of the distal aspects but further life-saving measures pressors currently required and necessary and indicated. wound re-evaluated. necrotic epidermal tissue sloth off but underlying tissues with backbleeding. motor noted spont in foot and toes We will continue to monitor extremities and evaluate them. Will wean off pressors as possible. Lactic acidosis improving. Continue IV antibiotics Downgraded and doing well prognosis guarded labs slowly improving now still ill and guarded trach doing well weaning from vent while polst reviewed Appreciate nickel care and management care and management We will follow with recommendations (2) Abdominal pain Assessment & Plan: Chronic liver disease/cirrhosis with signs of portal hypertension including moderate ascites and hepatofugal flow in the portal vein. Gallbladder wall edema nonspecific Bilateral pleural effusions. Medical renal disease Findings: There is extensive artifact from the patient's arms limiting evaluation. Oral contrast was given. Gastrostomy tube is noted in good position. There are small bilateral pleural effusions present with adjacent ill-defined parenchymal density either atelectasis or pneumonia. Correlate clinically. Small pericardial effusion is present and there is generalized cardiomegaly present. Hiatal hernia noted. Aorta and coronary artery calcification present. Mild ascites is demonstrated. No compelling evidence for bowel obstruction. There is extensive diverticulosis involving the colon without obvious diverticulitis. Generalized anasarca noted. The appendix is not seen. The kidneys show no obvious hydronephrosis. The right kidney appears atrophic. There is a suggestion of cysts within the right kidney but this is grossly limited in terms of visualization. The gallbladder is demonstrated. The rectum appears low in location suggestive of prolapse and with a moderate degree of fecal retention. IMPRESSION: Limited evaluation due to artifact. Mild to moderate ascites Trace bilateral pleural effusions. Basilar atelectasis and/or infiltrate. Trace pericardial effusion Generalized cardiomegaly. Atherosclerotic vascular disease Extensive diverticulosis of the colon. No definite diverticulitis. Anasarca Gross catheter Query rectal prolapse reviewed US again lft's cont to rise likely liver decompensation trend (3) Severe sepsis Tristan Heller Mar 09, 2019 16:43
--- NOTE | 2019-03-09 19:04 | General Progress Note ---
Assessment/Plan Status: stable, not improved, deteriorating Assessment/Plan: Assessment - GT dependent - Hepatitis C (+) - Abnormal LFT, ascites, thrombocytopenia - suspect chronic liver disease - Lactic acidosis - Resp failure- s/p trach - OBS / Delirium - Azotemia - Diarrhea - improved off of lactulose - poor PX Recommendations - supportive care - continue TF - elevate HOB - frequent dry GT dressing changes - PRN paracentesis - Abx per ID - agree with DNR Subjective Allergies: Coded Allergies: No Known Allergies (Unverified , 02/19/19) Subjective Above noted tolerating feeds some abdominal distention Objective Last 24 Hour Vital Signs Date Time Temp Pulse Resp B/P (MAP) Pulse Ox O2 Delivery O2 Flow Rate FiO2 03/09/19 16:39 117 26 35 03/09/19 16:00 98.8 112 19 148/87 (107) 95 03/09/19 16:00 Mechanical Ventilator 03/09/19 16:00 107 03/09/19 15:03 102 32 35 03/09/19 12:51 100 28 97 Mechanical Ventilator 35 102 28 35 03/09/19 12:00 98.1 96 19 115/77 (90) 95 03/09/19 12:00 Mechanical Ventilator 03/09/19 12:00 102 03/09/19 10:36 90 23 35 03/09/19 10:09 96.9 03/09/19 09:00 87 21 35 03/09/19 08:52 99 03/09/19 08:19 90 03/09/19 08:00 Mechanical Ventilator 03/09/19 08:00 83 03/09/19 08:00 35 03/09/19 08:00 95.0 88 19 119/66 (83) 100 03/09/19 07:04 89 21 100 Mechanical Ventilator 35 82 22 35 03/09/19 05:24 82 17 35 03/09/19 04:00 35 03/09/19 04:00 97.3 87 19 110/74 (86) 100 03/09/19 04:00 Mechanical Ventilator 03/09/19 03:34 76 03/09/19 02:30 90 20 35 03/09/19 01:22 83 19 35 03/09/19 00:00 97.0 85 17 130/74 (92) 100 03/09/19 00:00 Mechanical Ventilator 03/08/19 23:40 87 03/08/19 22:46 81 24 35 03/08/19 21:14 84 26 35 03/08/19 20:00 97.0 88 16 109/66 (80) 100 03/08/19 20:00 Mechanical Ventilator 03/08/19 20:00 35 03/08/19 19:25 77 03/08/19 19:11 82 24 100 Mechanical Ventilator 35 83 24 35 Intake and Output 03/08/19 03/09/19 19:00 07:00 Intake Total 600 ml 800 ml Output Total 370 ml 500 ml Balance 230 ml 300 ml Free Water 200 ml Tube Feeding 600 ml 600 ml Output Urine Total 270 ml 500 ml Stool Total 100 ml Laboratory Tests 03/09/19 03:30: White Blood Count 5.8, Red Blood Count 2.85L, Hemoglobin 9.0L, Hematocrit 28.3L , Mean Corpuscular Volume 99, Mean Corpuscular Hemoglobin 31.6H, Mean Corpuscular Hemoglobin Concent 31.8L, Red Cell Distribution Width 17.9H, Platelet Count 69L, Mean Platelet Volume 9.5, Neutrophils (%) (Auto) , Lymphocytes (%) (Auto) , Monocytes (%) (Auto) , Eosinophils (%) (Auto) , Basophils (%) (Auto) , Prothrombin Time 14.5H, Prothromb Time International Ratio 1.4H, Sodium Level 144, Potassium Level 3.5, Chloride Level 111H, Carbon Dioxide Level 22, Anion Gap 11, Blood Urea Nitrogen 43H, Creatinine 0.9, Estimat Glomerular Filtration Rate , Glucose Level 238H, Calcium Level 8.0L, Phosphorus Level 2.6, Magnesium Level 1.9, Total Bilirubin 1.3H, Direct Bilirubin 0.7H, Aspartate Amino Transf (AST/SGOT) 36, Alanine Aminotransferase ( ALT/SGPT) 17, Alkaline Phosphatase 133H, Pro-B-Type Natriuretic Peptide 06528G, Total Protein 5.7L, Albumin 1.7L, Globulin 4.0, Albumin/Globulin Ratio 0.4L, Digoxin Level 1.9 Height (Feet): 5 Height (Inches): 5.00 Weight (Pounds): 159 Objective WDWN NCAT Supple, s/p trach Coarse ronchi RR abd soft ND NT, (+) GT, some skin breakdown at GT site, distended abd obtunded contracted Khorrami,Payman MD Mar 09, 2019 19:04
--- NOTE | 2019-03-09 19:10 | NUR ---
NURSE NOTES: Pt report received from Melvin Benites day shift RN SDU. pt remains stable. pt is alert and oriented times 1. pt is on endo tech showing A fib ( aware.), no other adverse abnormalities noted. pt is on trach- vent satting at 99%, no acute resp distress noted. pt bed is low, locked, armed, call light within reach, bed rails up times 3. will follow plan of care.
--- NOTE | 2019-03-09 19:15 | NUR ---
HAND-OFF: Report given to ANDREINA Goodwin.
[2019-03-09] MEDS ORDERED: Albuterol/Ipratropium 3ml neb HHN PRN (19:30)
--- NOTE | 2019-03-09 19:38 | NUR ---
NURSE NOTES: left a message on MD Colón direct line stating pt blood pressure is 80/50, HR at 107, other Vital signs stable. reported past history and report Ejection fraction of 40%. awaiting new orders. awaiting new MD orders. will continue to monitor pt continuously.
--- NOTE | 2019-03-09 19:44 | NUR ---
NURSE NOTES: left a message on MD blanco direct line stating pt blood pressure is 80/50, HR at 107, other Vital signs stable. reported past history and report Ejection fraction of 40%. awaiting new orders. awaiting new MD orders. will continue to monitor pt continuously.
[2019-03-09 20:00] VITALS: BP 83/56
--- NOTE | 2019-03-09 20:00 | NUR ---
NURSE NOTES: MD Reis called back. stated to give 500 NS at 100cc. to treat low BP. will reassess, will continue to monitor. will report back to MD for change of condition.
[2019-03-09] MEDS ORDERED: Sodium Chloride 550 ML IV ONE (20:15)
[2019-03-09] MEDS: Dyna-Hex 2% Top Sol 2oz TOPIC SCH (20:18)
[2019-03-09] MEDS ORDERED: Hydrocortisone 100mg Inj IV SCH (21:00)
[2019-03-10] VITALS (95 sets, daily range): BP systolic 67–157; BP diastolic 15–111
--- NOTE | 2019-03-10 00:15 | NUR ---
NURSE NOTES: reported pt status and condition to MD Mason and MD Reis. stated pt blood pressure after a Normal Saline bolus of 500 cc is still hypotensive, 80/50. MD mason stated to transfer pt to ICU and start Levophed drip stat. reported to banking consultant Alexandru, charge THERAPIST'S ASSISTANT, and housecleaner floor Lisandro. will follow orders.
--- NOTE | 2019-03-10 00:22 | NUR ---
NURSE NOTES: called Iva from [facility]. stated new order under bella to place pt under Levophed drip. Iva stated she will have pharmacist call back for medication verification.
--- NOTE | 2019-03-10 00:40 | NUR ---
HAND-OFF: Report given to Batch CRECHE ATTENDANT. Pt remains stable. pt is now in ICU.
--- NOTE | 2019-03-10 00:40 | NUR ---
NURSE NOTES: at 199903/09/19 , pt blood pressure was 80/ 50, O2 98%, temp 98.0, resp 21. MD Marlon Reis contacted and alerted. MD Mason ordered 500CC NS at 100 cc per hr. at 0000 03/10/19 pt vital signs showed 79/ 52, O2 99%, temp 98.0, resp 21. MD maosn and MD Reis alerted of 0000 vital signs and MD mason ordered stat transfer to ICU and stat start LEVOPHED drip. learning design specialist NEMIA aware. general warehouse worker MADDI aware. learning design specialistANDREINA Eisenberg aware. will follow orders.
--- NOTE | 2019-03-10 00:46 | NUR ---
NURSE NOTES: Received patient and report from ANDREINA Maxwell. Pt's transferred to ICU due to hypotensive, BP84/45, HR100, R24. Levophed ordered by Dr Mason. Patient is obtunded, non responsive. Afib on school lunch monitor. Trach Shiley 8 to vent with vent settings of AC 16/500tv, 35% FiO2 and peep of 5. SpO2 is 94%. Patient has G-tube, feeding on hold at this time, previous Vital AF at 50ml/hr. Rectal tube noted with liquid brown diarrhea. Left UA PICC, clamped. SCD's on. Multiple wounds noted, see WCP. P200 mattress noted. Patient has pitting edema on upper and lower extremities. The abdomen in mildly tender and round. Safety measures are in place. Bed in low and locked position. Call light within reach. Noted bilateral soft wrists restrains unfasten at this time. Will continue to monitor.
--- NOTE | 2019-03-10 01:00 | NUR ---
NURSE NOTES: Levophed running at 8mcg/min. Goal to bring SBP up above 90. Current BP 88/57. Pt's in no acute distress. Will continue to monitor.
--- NOTE | 2019-03-10 02:00 | NUR ---
NURSE NOTES: Levophed now running at 10mcg/min. BP 100/59. Will start titrating down. Will continue to monitor.
--- NOTE | 2019-03-10 02:30 | Progress Note ---
DATE: 03/08/2019 CARDIOLOGY PROGRESS NOTE SUBJECTIVE: The patient's condition remains tenuous, but improved. She is out of the intensive care unit. She is off pressors. Paracentesis could not be performed due to low blood pressure. PHYSICAL EXAMINATION: LUNGS: Diminished breath sounds. EXTREMITIES: Anasarca. CARDIAC: Irregularly irregular rhythm. Normal S1 and S2. IMPRESSION: 1. Sepsis with shock. 2. Tenuous blood pressure, but now off pressors. 3. Atrial fibrillation. 4. Adrenocortical insufficiency. 5. Respiratory failure. 6. Passive congestion of the liver with ascites and cirrhosis. PLAN: 1. Continue to avoid pressors 2. Unable to initiate beta-blockers due to low range blood pressure. 3. Continue efforts to diurese and blood pressure can tolerate. 4. Antimicrobials per infectious disease technology applications consultant. 5. Respiratory hygiene. 6. Digoxin for rate control. Jimmie Mason M.D. DR: YUE JOB#: [id number] CC:
--- NOTE | 2019-03-10 02:30 | Progress Note ---
DATE: 03/09/2019 CARDIOLOGY PROGRESS NOTE SUBJECTIVE: Condition has deteriorated. The patient has been less interactive and withdrawn today. Blood pressure persistently low, 80/50. Fluid challenge x1 liter administered with no improvement. OBJECTIVE: LUNGS: Diminished breath sounds. CARDIAC: Irregularly irregular rhythm. S1 and S2. ABDOMEN: Distended. Positive ascites. Anasarca. LABORATORY DATA: Laboratories noted. IMPRESSION: 1. Worsening condition, now critical and guarded. 2. Persisting shock and unresponsive to volume support. 3. Sepsis. 4. Adrenocortical insufficiency. 5. Intravascular volume depletion. 6. Ascites. 7. Right-sided heart failure with acute on chronic systolic and diastolic dysfunction. 8. Atrial fibrillation. PLAN: 1. Transfer to intensive care unit. 2. Pressor support. 3. Steroids. 4. Antimicrobials. 5. Transfuse for low hemoglobin below 8 g. 6. Respiratory hygiene. 7. Digitalis for rate control. Jimmie Mason M.D. DR: GISEL JOB#: [id number] CC: CHRISTINE
[2019-03-10] MEDS ORDERED: Acetaminophen 650mg/20.3ml GT PRN (03:09)
--- NOTE | 2019-03-10 04:00 | NUR ---
NURSE NOTES: Levophed running at 10mcg/min. VS stable. Pt's in no acute distress. Continue afib on monitor. Will continue to monitor.
--- NOTE | 2019-03-10 05:00 | NUR ---
NURSE NOTES: Discontinued restraints, also hold tube feeding due to increased residual. Will continue to monitor. Pt's resting in bed, in no acute distress at this time.
[2019-03-10 06:01] LABS: HEMATOCRIT 31.1 % (37.0-47.0); HEMOGLOBIN 9.9 G/DL (12.0-16.0); MEAN CORPUSCULAR VOLUME 99 FL (80-99); PLATELET COUNT 80 K/UL (150-450); RED BLOOD COUNT 3.13 M/UL (4.20-5.40); RED CELL DISTRIBUTION WIDTH 19.3 % (11.6-14.8); WHITE BLOOD COUNT 7.1 K/UL (4.8-10.8)
[2019-03-10 06:27] LABS: ALANINE AMINOTRANSFERASE 9 U/L (12-78); ALBUMIN 1.4 G/DL (3.4-5.0); ALBUMIN/GLOBULIN RATIO 0.4 (1.0-2.7); ALKALINE PHOSPHATASE 89 U/L (46-116); ANION GAP 13 mmol/L (5-15); ASPARTATE AMINO TRANSFERASE 34 U/L (15-37); BILIRUBIN,TOTAL 1.9 MG/DL (0.2-1.0); BLOOD UREA NITROGEN 49 mg/dL (7-18); CALCIUM 7.9 MG/DL (8.5-10.1); CARBON DIOXIDE 19 MMOL/L (21-32); CHLORIDE 113 MMOL/L (98-107); CREATININE 1.3 MG/DL (0.55-1.30); POTASSIUM 3.2 MMOL/L (3.5-5.1); SODIUM 145 MMOL/L (136-145)
[2019-03-10 06:37] LABS: BILIRUBIN,DIRECT 1.5 MG/DL (0.0-0.3)
--- NOTE | 2019-03-10 07:00 | NUR ---
HAND-OFF: Report given to ANDREINA Becker.
--- NOTE | 2019-03-10 07:16 | General Progress Note ---
Assessment/Plan Problem List: (1) Septic shock ICD Codes: A41.9 - Sepsis, unspecified organism; R65.21 - Severe sepsis with septic shock SNOMED: 80237847 (2) UTI (urinary tract infection) ICD Codes: N39.0 - Urinary tract infection, site not specified SNOMED: 27616880 Qualifiers: Qualified Codes: N39.0 - Urinary tract infection, site not specified (3) Renal failure ICD Codes: N19 - Unspecified kidney failure SNOMED: 57608228 Qualifiers: Qualified Codes: N17.9 - Acute kidney failure, unspecified (4) Abdominal pain ICD Codes: R10.9 - Unspecified abdominal pain SNOMED: 09812866 Qualifiers: Qualified Codes: R10.32 - Left lower quadrant pain (5) Severe sepsis ICD Codes: A41.9 - Sepsis, unspecified organism; R65.20 - Severe sepsis without septic shock SNOMED: 53307907 (6) Dehydration ICD Codes: E86.0 - Dehydration SNOMED: 09821849 (7) Atrial fibrillation with rapid ventricular response ICD Codes: I48.91 - Unspecified atrial fibrillation SNOMED: 709970149002098 Status: stable, not improved, deteriorating Assessment/Plan: cont supportive care wean vent as able resp rx suctioning trach care midodrine resume iv hydrocortisone resp rx and suctioning as needed monitor labs scd iv abx per id tube feeds Subjective ROS Limited/Unobtainable: No Constitutional: Reports: malaise, weakness HEENT: Reports: no symptoms Cardiovascular: Reports: no symptoms Respiratory: Reports: no symptoms Gastrointestinal/Abdominal: Reports: difficulty swallowing Genitourinary: Reports: no symptoms Neurologic/Psychiatric: Reports: pre-existing deficit Endocrine: Reports: no symptoms Hematologic/Lymphatic: Reports: anemia Allergies: Coded Allergies: No Known Allergies (Unverified , 02/19/19) All Systems: reviewed and negative except above Subjective transferred to icu for hypotension. no fevers no tolerating feeds. ?aspiration Objective Last 24 Hour Vital Signs Date Time Temp Pulse Resp B/P (MAP) Pulse Ox O2 Delivery O2 Flow Rate FiO2 03/10/19 06:45 109 29 100/64 (76) 95 03/10/19 06:30 109 29 99/61 (74) 95 03/10/19 06:15 108 28 103/61 (75) 100 03/10/19 06:00 106 26 102/53 (69) 87 03/10/19 05:45 110 27 97/56 (70) 03/10/19 05:30 108 25 118/56 (76) 03/10/19 05:15 109 24 109/56 (73) 03/10/19 05:15 109/56 03/10/19 05:08 106 27 35 03/10/19 05:05 107 24 92/60 (71) 03/10/19 05:00 85/53 03/10/19 04:46 107 22 89/52 (64) 03/10/19 04:30 106 26 92/53 (66) 03/10/19 04:15 110 27 105/61 (76) 03/10/19 04:00 109 03/10/19 04:00 96/57 03/10/19 04:00 35 03/10/19 04:00 113 29 96/57 (70) 03/10/19 04:00 Mechanical Ventilator 03/10/19 03:38 100/58 03/10/19 03:30 109 25 113/59 (77) 03/10/19 03:15 111 24 99/52 (68) 03/10/19 03:00 99/57 03/10/19 03:00 109 27 99/57 (71) 03/10/19 02:45 113 27 96/57 (70) 03/10/19 02:34 112 27 35 03/10/19 02:30 109 25 90/61 (71) 100 03/10/19 02:15 113 27 101/55 (70) 03/10/19 02:00 100/59 03/10/19 02:00 111 25 100/59 (73) 03/10/19 01:45 113 25 98/55 (69) 03/10/19 01:30 114 24 86/54 (65) 03/10/19 01:15 100 20 91/54 (66) 97 03/10/19 01:00 81/50 03/10/19 01:00 109 20 81/50 (60) 97 03/10/19 00:48 74/36 03/10/19 00:45 98.6 102 20 126/55 (78) 97 03/10/19 00:41 91 28 35 03/10/19 00:00 35 03/10/19 00:00 Mechanical Ventilator 03/10/19 00:00 98.6 102 20 91/59 (70) 97 03/09/19 23:32 100 03/09/19 23:10 95 22 35 03/09/19 21:26 111 29 35 03/09/19 20:00 114 03/09/19 20:00 Mechanical Ventilator 03/09/19 20:00 99.0 108 23 83/56 (65) 95 03/09/19 20:00 35 03/09/19 19:55 110 28 93 Mechanical Ventilator 35 03/09/19 19:27 111 28 35 03/09/19 16:39 117 26 35 03/09/19 16:00 98.8 112 19 148/87 (107) 95 03/09/19 16:00 Mechanical Ventilator 03/09/19 16:00 107 03/09/19 15:03 102 32 35 03/09/19 12:51 100 28 97 Mechanical Ventilator 35 102 28 35 03/09/19 12:00 98.1 96 19 115/77 (90) 95 03/09/19 12:00 Mechanical Ventilator 03/09/19 12:00 102 03/09/19 10:36 90 23 35 03/09/19 10:09 96.9 03/09/19 09:00 87 21 35 03/09/19 08:52 99 03/09/19 08:19 90 03/09/19 08:00 Mechanical Ventilator 03/09/19 08:00 83 03/09/19 08:00 35 03/09/19 08:00 95.0 88 19 119/66 (83) 100 Intake and Output 03/09/19 03/10/19 19:00 07:00 Intake Total 800 ml 1576.625 ml Output Total 600 ml 650 ml Balance 200 ml 926.625 ml Free Water 200 ml 100 ml IV Total 1076.625 ml Tube Feeding 600 ml 400 ml Output Urine Total 300 ml 200 ml Stool Total 300 ml 450 ml # Voids 200 Laboratory Tests 03/10/19 04:50: White Blood Count 7.1, Red Blood Count 3.13L, Hemoglobin 9.9L, Hematocrit 31.1L , Mean Corpuscular Volume 99, Mean Corpuscular Hemoglobin 31.7H, Mean Corpuscular Hemoglobin Concent 32.0, Red Cell Distribution Width 19.3H, Platelet Count 80L, Mean Platelet Volume 10.0, Neutrophils (%) (Auto) , Lymphocytes (%) (Auto) , Monocytes (%) (Auto) , Eosinophils (%) (Auto) , Basophils (%) (Auto) , Neutrophils % (Manual) [Pending], Lymphocytes % (Manual) [Pending], Platelet Estimate [Pending], Platelet Morphology [Pending], Sodium Level 145, Potassium Level 3.2L, Chloride Level 113H, Carbon Dioxide Level 19L, Anion Gap 13, Blood Urea Nitrogen 49H, Creatinine 1.3, Estimat Glomerular Filtration Rate , Glucose Level 107#H, Calcium Level 7.9L, Magnesium Level 1.8, Total Bilirubin 1.9H, Direct Bilirubin 1.5H, Aspartate Amino Transf (AST/SGOT) 34, Alanine Aminotransferase (ALT/SGPT) 9L, Alkaline Phosphatase 89, Total Protein 5.0L, Albumin 1.4L, Globulin 3.6, Albumin/Globulin Ratio 0.4L Height (Feet): 5 Height (Inches): 5.00 Weight (Pounds): 159 Objective General Appearance: WD/WN, confused. more responsive, Neck: supple, trach site clean. no bleeding Cardiovascular: irregularly irregular Respiratory/Chest: chest wall non-tender, lungs clear, normal breath sounds, no respiratory distress Abdomen: normal bowel sounds, non tender, soft, no organomegaly Edema: no edema noted Arm (L), no edema noted Arm (R), no edema noted Leg (L), no edema noted Leg (R), no edema noted Pedal (L), no edema noted Pedal (R), no edema noted Generalized Neurologic: disoriented Mitchel Reis MD Mar 10, 2019 07:16
[2019-03-10] MEDS: Albuterol/Ipratropium 3ml neb HHN PRN ×3 (07:23→19:17)
--- NOTE | 2019-03-10 07:29 | NUR ---
NURSE NOTES: Received report from ANDREINA Lake. Patient is obtunded. Pt has trach, Pat 8 with vent setting AC 16, VT 500, Peep 5 and FiO2 35%. No distress/SOB noted with current vent setting. Gtube intact and clean. Tube feed has been held for above 300ml residual. Gross intact and draining with yellow urine. Rectal tube intact and draining brown color liquid stool. Left upper arm PICC intact, clean and running with levophed 8mcg/min to keep SBP>90. Kept dry, clean, comfortable and HOB>30. Will continue plan of care.
--- NOTE | 2019-03-10 07:30 | NUR ---
RESPIRATORY NOTE: received pt on vent, trached with shiley [address], secured via trach tie/guard. no signs of resp distress on current vent settings. no visible redness or skin wounds around stoma or neck. ambu bag bat bedside with alarms set appropriately. will cont to monitor.
[2019-03-10] MEDS: Hydrocortisone 100mg Inj IV SCH ×3 (07:51→21:11)
[2019-03-10] MEDS: Spironolactone 25mg tab GT SCH ×2 (08:35→17:40)
[2019-03-10] MEDS: Midodrine 10mg tab GT SCH ×3 (08:35→17:40)
--- NOTE | 2019-03-10 08:45 | NUR ---
NURSE NOTES: Seen by Dr. Saldana and assessed patient.
[2019-03-10] MEDS ORDERED: Hydrocortisone 100mg Inj IV SCH (09:00)
[2019-03-10] MEDS ORDERED: Digoxin 0.125mg tab NG SCH (09:00)
--- NOTE | 2019-03-10 09:05 | NUR ---
NURSE NOTES: NS bolus 500ml and albumin 25% were given as ordered. Levophed titrated down to 6mcg/min. Will continue to monitor closely.
--- NOTE | 2019-03-10 09:08 | NUR ---
RESPIRATORY NOTE: placed pt on CPAP PS12 fio2 35%. no resp distress noted, slightly tachypneic, but will cont to wean as tolerated. RN, notified
[2019-03-10] MEDS ORDERED: NS 500ML ONE ×2 (09:36→09:38)
[2019-03-10] MEDS ORDERED: NS 275ml ONE (09:38)
--- NOTE | 2019-03-10 10:36 | NUR ---
RESPIRATORY NOTE: placed back on AC due to increased HR, RR and desaturation.
--- NOTE | 2019-03-10 13:17 | NUR ---
NURSE NOTES: Seen by Dr. Puckett and new order read back, carried out.
--- NOTE | 2019-03-10 14:46 | Surgery Progress Note ---
Surgery Progress Note Subjective Procedure Performed tracheostomy Additional Comments high gastric tube feed residuals/ held now drainage around trach on vent support labs noted Objective Last 24 Hour Vital Signs Date Time Temp Pulse Resp B/P (MAP) Pulse Ox O2 Delivery O2 Flow Rate FiO2 03/10/19 14:30 111 29 96/51 (66) 84 03/10/19 14:00 112 27 92/66 (75) 98 03/10/19 13:30 109 25 100/54 (69) 03/10/19 13:00 91/58 03/10/19 13:00 100 28 91/58 (69) 82 03/10/19 12:48 106 27 98 Mechanical Ventilator 40 110 24 40 03/10/19 12:30 110 27 101/55 (70) 96 03/10/19 12:00 103 03/10/19 12:00 Mechanical Ventilator 03/10/19 12:00 98.5 103 27 95/58 (70) 95 03/10/19 12:00 95/58 03/10/19 11:30 111 28 102/59 (73) 94 03/10/19 11:09 98 26 40 03/10/19 11:00 103 28 111/59 (76) 94 03/10/19 11:00 111/59 03/10/19 10:30 105 21 102/60 (74) 94 03/10/19 10:00 111/60 03/10/19 10:00 117 26 111/60 (77) 96 03/10/19 09:45 91/56 03/10/19 09:30 96/55 03/10/19 09:30 102 24 96/55 (69) 100 03/10/19 09:15 93/53 03/10/19 09:08 35 03/10/19 09:00 105/56 03/10/19 09:00 106 25 105/56 (72) 98 03/10/19 08:57 102 29 35 03/10/19 08:56 98 03/10/19 08:35 109 03/10/19 08:30 109 27 113/57 (75) 100 03/10/19 08:30 113/57 03/10/19 08:10 87/53 03/10/19 08:00 98.3 110 27 87/54 (65) 96 03/10/19 08:00 35 03/10/19 08:00 105 11/30/19 08:00 Mechanical Ventilator 03/10/19 08:00 87/54 03/10/19 07:30 97/57 03/10/19 07:30 108 19 97/57 (70) 96 03/10/19 07:23 106 25 100 Mechanical Ventilator 35 111 29 35 03/10/19 07:00 128 27 93/55 (68) 99 03/10/19 07:00 97/57 03/10/19 06:45 109 29 100/64 (76) 95 03/10/19 06:30 109 29 99/61 (74) 95 03/10/19 06:15 108 28 103/61 (75) 100 03/10/19 06:00 106 26 102/53 (69) 87 03/10/19 06:00 102/53 03/10/19 05:45 110 27 97/56 (70) 03/10/19 05:30 108 25 118/56 (76) 03/10/19 05:15 109 24 109/56 (73) 03/10/19 05:15 109/56 03/10/19 05:08 106 27 35 03/10/19 05:05 107 24 92/60 (71) 03/10/19 05:00 85/53 03/10/19 04:46 107 22 89/52 (64) 03/10/19 04:30 106 26 92/53 (66) 03/10/19 04:15 110 27 105/61 (76) 03/10/19 04:00 109 03/10/19 04:00 96/57 03/10/19 04:00 35 03/10/19 04:00 113 29 96/57 (70) 03/10/19 04:00 Mechanical Ventilator 03/10/19 03:38 100/58 03/10/19 03:30 109 25 113/59 (77) 03/10/19 03:15 111 24 99/52 (68) 03/10/19 03:00 99/57 03/10/19 03:00 109 27 99/57 (71) 03/10/19 02:45 113 27 96/57 (70) 03/10/19 02:34 112 27 35 03/10/19 02:30 109 25 90/61 (71) 100 03/10/19 02:15 113 27 101/55 (70) 03/10/19 02:00 100/59 03/10/19 02:00 111 25 100/59 (73) 03/10/19 01:45 113 25 98/55 (69) 03/10/19 01:30 114 24 86/54 (65) 03/10/19 01:15 100 20 91/54 (66) 97 03/10/19 01:00 81/50 03/10/19 01:00 109 20 81/50 (60) 97 03/10/19 00:48 74/36 03/10/19 00:45 98.6 102 20 126/55 (78) 97 03/10/19 00:41 91 28 35 03/10/19 00:00 35 03/10/19 00:00 Mechanical Ventilator 03/10/19 00:00 98.6 102 20 91/59 (70) 97 03/09/19 23:32 100 03/09/19 23:10 95 22 35 03/09/19 21:26 111 29 35 03/09/19 20:00 114 03/09/19 20:00 Mechanical Ventilator 03/09/19 20:00 99.0 108 23 83/56 (65) 95 03/09/19 20:00 35 03/09/19 19:55 110 28 93 Mechanical Ventilator 35 03/09/19 19:27 111 28 35 03/09/19 16:39 117 26 35 03/09/19 16:00 98.8 112 19 148/87 (107) 95 03/09/19 16:00 Mechanical Ventilator 03/09/19 16:00 107 03/09/19 15:03 102 32 35 I&O Intake and Output 03/09/19 03/10/19 19:00 07:00 Intake Total 800 ml 1634.750 ml Output Total 600 ml 650 ml Balance 200 ml 984.750 ml Free Water 200 ml 100 ml IV Total 1134.750 ml Tube Feeding 600 ml 400 ml Output Urine Total 300 ml 200 ml Stool Total 300 ml 450 ml # Voids 200 Dressing: other Wound: other Drains: other Cardiovascular: RSR Respiratory: decreased breath sounds Abdomen: soft, present bowel sounds Extremities: no cyanosis, other Laboratory Tests Test 03/10/19 04:50 White Blood Count 7.1 K/UL (4.8-10.8) Red Blood Count 3.13 M/UL (4.20-5.40) L Hemoglobin 9.9 G/DL (12.0-16.0) L Hematocrit 31.1 % (37.0-47.0) L Mean Corpuscular Volume 99 FL (80-99) Mean Corpuscular Hemoglobin 31.7 PG (27.0-31.0) H Mean Corpuscular Hemoglobin Concent 32.0 G/DL (32.0-36.0) Red Cell Distribution Width 19.3 % (11.6-14.8) H Platelet Count 80 K/UL (150-450) L Mean Platelet Volume 10.0 FL (6.5-10.1) Neutrophils (%) (Auto) % (45.0-75.0) Lymphocytes (%) (Auto) % (20.0-45.0) Monocytes (%) (Auto) % (1.0-10.0) Eosinophils (%) (Auto) % (0.0-3.0) Basophils (%) (Auto) % (0.0-2.0) Differential Total Cells Counted 100 Neutrophils % (Manual) 50 % (45-75) Lymphocytes % (Manual) 10 % (20-45) L Monocytes % (Manual) 4 % (1-10) Eosinophils % (Manual) 0 % (0-3) Basophils % (Manual) 0 % (0-2) Myelocytes % 1 % (0-0) H Band Neutrophils 35 % (0-8) H Platelet Estimate Decreased L Platelet Morphology Normal Anisocytosis 2+ Macrocytosis 1+ Ovalocytes 2+ Sodium Level 145 MMOL/L (136-145) Potassium Level 3.2 MMOL/L (3.5-5.1) L Chloride Level 113 MMOL/L (98-107) H Carbon Dioxide Level 19 MMOL/L (21-32) L Anion Gap 13 mmol/L (5-15) Blood Urea Nitrogen 49 mg/dL (7-18) H Creatinine 1.3 MG/DL (0.55-1.30) Estimat Glomerular Filtration Rate mL/min (>60) Glucose Level 107 MG/DL (74-106) #H Calcium Level 7.9 MG/DL (8.5-10.1) L Magnesium Level 1.8 MG/DL (1.8-2.4) Total Bilirubin 1.9 MG/DL (0.2-1.0) H Direct Bilirubin 1.5 MG/DL (0.0-0.3) H Aspartate Amino Transf (AST/SGOT) 34 U/L (15-37) Alanine Aminotransferase (ALT/SGPT) 9 U/L (12-78) L Alkaline Phosphatase 89 U/L (46-116) Total Protein 5.0 G/DL (6.4-8.2) L Albumin 1.4 G/DL (3.4-5.0) L Globulin 3.6 g/dL Albumin/Globulin Ratio 0.4 (1.0-2.7) L Plan Problems: (1) Septic shock Assessment & Plan: 78-year-old female in septic shock in the intensive care unit on pressors. Leukocytosis, anemia, abnormal labs. Tachycardic. On respiratory support. On examination patient identified to have slowed capillary refill in the distal extremities. Patient furthermore identified to have a weeping wound in the right great toe. Patient is currently very ill and septic and requiring pressors. Unfortunately given her medical condition comorbidities and history there is potential for distal vasoconstriction and potentially even necrosis of the distal aspects but further life-saving measures pressors currently required and necessary and indicated. wound re-evaluated. necrotic epidermal tissue sloth off but underlying tissues with backbleeding. motor noted spont in foot and toes We will continue to monitor extremities and evaluate them. Will wean off pressors as possible. Lactic acidosis improving. Continue IV antibiotics Downgraded and doing well prognosis guarded labs slowly improving now still ill and guarded trach doing well weaning from vent while polst reviewed Appreciate nickel care and management care and management We will follow with recommendations (2) Abdominal pain Assessment & Plan: Chronic liver disease/cirrhosis with signs of portal hypertension including moderate ascites and hepatofugal flow in the portal vein. Gallbladder wall edema nonspecific Bilateral pleural effusions. Medical renal disease Findings: There is extensive artifact from the patient's arms limiting evaluation. Oral contrast was given. Gastrostomy tube is noted in good position. There are small bilateral pleural effusions present with adjacent ill-defined parenchymal density either atelectasis or pneumonia. Correlate clinically. Small pericardial effusion is present and there is generalized cardiomegaly present. Hiatal hernia noted. Aorta and coronary artery calcification present. Mild ascites is demonstrated. No compelling evidence for bowel obstruction. There is extensive diverticulosis involving the colon without obvious diverticulitis. Generalized anasarca noted. The appendix is not seen. The kidneys show no obvious hydronephrosis. The right kidney appears atrophic. There is a suggestion of cysts within the right kidney but this is grossly limited in terms of visualization. The gallbladder is demonstrated. The rectum appears low in location suggestive of prolapse and with a moderate degree of fecal retention. IMPRESSION: Limited evaluation due to artifact. Mild to moderate ascites Trace bilateral pleural effusions. Basilar atelectasis and/or infiltrate. Trace pericardial effusion Generalized cardiomegaly. Atherosclerotic vascular disease Extensive diverticulosis of the colon. No definite diverticulitis. Anasarca Gross catheter Query rectal prolapse reviewed US again lft's cont to rise likely liver decompensation trend (3) Severe sepsis Tristan Heller Mar 10, 2019 14:46
--- NOTE | 2019-03-10 15:26 | NUR ---
NURSE NOTES: Oral care and bed bath given.
[2019-03-10] MEDS ORDERED: Tubing IV Secondary IV ONE (15:28)
--- NOTE | 2019-03-10 16:25 | NUR ---
NURSE NOTES: Seen by Dr. Louis and no new order.
--- NOTE | 2019-03-10 16:45 | NUR ---
NURSE NOTES: Increased levophed from 6mcg/min to 8mcg/min to keep SBP>90
--- NOTE | 2019-03-10 17:03 | Pulmonolgy Critical Care Note ---
Critical Care - Asmt/Plan Assessment/Plan: Pulmonary CCM Progress Note Assessment/Plan ASSESSMENT: acute on chronic encephalopathy, Hepatitis C, dementia, chronic atrial fibrillation, hypertension, diastolic congestive heart failure, septic shock, hypothermia, hypotension, hypoxemia severe PCM, thrombocytopenia, anemia, leukocytosis, acute renal failure tachycardia, remains on Vent support, s/p Tracheostomy PLAN care noted and reviewed in detail ICU management reviewed in detail vent management - still on full vent support on pressors per cardiology meds reviewed monitor acid base supportive care reviewed full code as outlined pressors to off IV antibiotics ID noted respiratory care SNF meds noted monitor feeds and reflux suction and monitor imaging monitor for aspiration and change oxygen therapy as needed all care reviewed in detail ICU care reviewed close follow up of acid base closely needs trach as unable to wean remains very ill at present medications/laboratory data/nursing notes/ICU care reviewed in detail note reviewed and edited care discussed with RN and RT ICU time spent 40 minutes Critical Care - Subjective Interval Events: findings noted remains ill chronically vent ICU care reviewed ROS Limited/Unobtainable: Yes Condition: critical EKG Rhythm: Sinus Rhythm Residuals: minimal Tube Feeding Tolerated: yes Critical Care - Objective Tracheostomy Vital Signs Noted Labs Noted Objective: PHYSICAL EXAMINATION: GENERAL: The patient is a chronically ill-appearing female, on VENT and not weaning yet NECK: Supple. area. Trach CDI HEART: iRRR.without MRG LUNGS: reduced breath sounds with some rhonchi; no wheeze ABDOMEN: Soft, nontender, nondistended. no HSM EXTREMITIES: No clubbing, cyanosis, or edema. NEURO: response to pain skin noted reviewed and edited Critical Care - Objective Last 24 Hour Vital Signs Date Time Temp Pulse Resp B/P (MAP) Pulse Ox O2 Delivery O2 Flow Rate FiO2 03/10/19 16:00 35 03/10/19 16:00 Mechanical Ventilator 03/10/19 15:22 101 27 40 03/10/19 14:30 111 29 96/51 (66) 84 03/10/19 14:00 112 27 92/66 (75) 98 03/10/19 13:30 109 25 100/54 (69) 03/10/19 13:00 91/58 03/10/19 13:00 100 28 91/58 (69) 82 03/10/19 12:48 106 27 98 Mechanical Ventilator 40 110 24 40 03/10/19 12:30 110 27 101/55 (70) 96 03/10/19 12:00 103 03/10/19 12:00 Mechanical Ventilator 03/10/19 12:00 98.5 103 27 95/58 (70) 95 03/10/19 12:00 95/58 03/10/19 11:30 111 28 102/59 (73) 94 03/10/19 11:09 98 26 40 03/10/19 11:00 103 28 111/59 (76) 94 03/10/19 11:00 111/59 03/10/19 10:30 105 21 102/60 (74) 94 03/10/19 10:00 111/60 03/10/19 10:00 117 26 111/60 (77) 96 03/10/19 09:45 91/56 03/10/19 09:30 96/55 03/10/19 09:30 102 24 96/55 (69) 100 03/10/19 09:15 93/53 03/10/19 09:08 35 03/10/19 09:00 105/56 03/10/19 09:00 106 25 105/56 (72) 98 03/10/19 08:57 102 29 35 03/10/19 08:56 98 03/10/19 08:35 109 03/10/19 08:30 109 27 113/57 (75) 100 03/10/19 08:30 113/57 03/10/19 08:10 87/53 03/10/19 08:00 98.3 110 27 87/54 (65) 96 03/10/19 08:00 35 03/10/19 08:00 105 03/10/19 08:00 Mechanical Ventilator 03/10/19 08:00 87/54 03/10/19 07:30 97/57 03/10/19 07:30 108 19 97/57 (70) 96 03/10/19 07:23 106 25 100 Mechanical Ventilator 35 111 29 35 03/10/19 07:00 128 27 93/55 (68) 99 03/10/19 07:00 97/57 03/10/19 06:45 109 29 100/64 (76) 95 03/10/19 06:30 109 29 99/61 (74) 95 03/10/19 06:15 108 28 103/61 (75) 100 03/10/19 06:00 106 26 102/53 (69) 87 03/10/19 06:00 102/53 03/10/19 05:45 110 27 97/56 (70) 03/10/19 05:30 108 25 118/56 (76) 03/10/19 05:15 109 24 109/56 (73) 03/10/19 05:15 109/56 03/10/19 05:08 106 27 35 03/10/19 05:05 107 24 92/60 (71) 03/10/19 05:00 85/53 03/10/19 04:46 107 22 89/52 (64) 03/10/19 04:30 106 26 92/53 (66) 03/10/19 04:15 110 27 105/61 (76) 03/10/19 04:00 109 03/10/19 04:00 96/57 03/10/19 04:00 35 03/10/19 04:00 113 29 96/57 (70) 03/10/19 04:00 Mechanical Ventilator 03/10/19 03:38 100/58 03/10/19 03:30 109 25 113/59 (77) 03/10/19 03:15 111 24 99/52 (68) 03/10/19 03:00 99/57 03/10/19 03:00 109 27 99/57 (71) 03/10/19 02:45 113 27 96/57 (70) 03/10/19 02:34 112 27 35 03/10/19 02:30 109 25 90/61 (71) 100 03/10/19 02:15 113 27 101/55 (70) 03/10/19 02:00 100/59 03/10/19 02:00 111 25 100/59 (73) 03/10/19 01:45 113 25 98/55 (69) 03/10/19 01:30 114 24 86/54 (65) 03/10/19 01:15 100 20 91/54 (66) 97 03/10/19 01:00 81/50 03/10/19 01:00 109 20 81/50 (60) 97 03/10/19 00:48 74/36 03/10/19 00:45 98.6 102 20 126/55 (78) 97 03/10/19 00:41 91 28 35 03/10/19 00:00 35 03/10/19 00:00 Mechanical Ventilator 03/10/19 00:00 98.6 102 20 91/59 (70) 97 03/09/19 23:32 100 03/09/19 23:10 95 22 35 03/09/19 21:26 111 29 35 03/09/19 20:00 114 03/09/19 20:00 Mechanical Ventilator 03/09/19 20:00 99.0 108 23 83/56 (65) 95 03/09/19 20:00 35 03/09/19 19:55 110 28 93 Mechanical Ventilator 35 03/09/19 19:27 111 28 35 Accucheck: 72 Critical Care - Subjective ROS Limited/Unobtainable: No FI02: 35 Vent Support Breath Rate: 16 Vent Support Mode: AC Vent Tidal Volume: 500 Sputum Amount: Small PEEP: 5.0 PIP: 27 Tube Feeding Amount: 0 I&O: Intake and Output 03/09/19 03/10/19 19:00 07:00 Intake Total 800 ml 1634.750 ml Output Total 600 ml 650 ml Balance 200 ml 984.750 ml Free Water 200 ml 100 ml IV Total 1134.750 ml Tube Feeding 600 ml 400 ml Output Urine Total 300 ml 200 ml Stool Total 300 ml 450 ml # Voids 200 ET-Tube: 7.0 ET Position: 22 Jimmie Puckett MD Mar 10, 2019 17:03
--- NOTE | 2019-03-10 17:22 | General Progress Note ---
Assessment/Plan Status: stable, not improved, deteriorating Assessment/Plan: Assessment - GT dependent - Hepatitis C (+) - Abnormal LFT, ascites, thrombocytopenia - suspect chronic liver disease - Resp failure- s/p trach - OBS / Delirium - Azotemia - Diarrhea -C Diff (-) x 1 - hypotension - poor Px Recommendations - supportive care - elevate HOB - Reglan trial - frequent dry GT dressing changes - PRN paracentesis - Abx per ID - agree with DNR Subjective Allergies: Coded Allergies: No Known Allergies (Unverified , 02/19/19) Subjective Above noted back to ICU for hypotension d/w RN not tolerating TF, high residuals noted diarrhea - Rectal tube on pressors for support Objective Last 24 Hour Vital Signs Date Time Temp Pulse Resp B/P (MAP) Pulse Ox O2 Delivery O2 Flow Rate FiO2 03/10/19 17:17 114 28 40 03/10/19 17:00 110 27 83/41 (55) 98 03/10/19 16:45 86/46 03/10/19 16:30 111 27 101/44 (63) 98 03/10/19 16:00 98.2 115 26 109/55 (73) 98 03/10/19 16:00 109/55 03/10/19 16:00 35 03/10/19 16:00 Mechanical Ventilator 03/10/19 15:30 114 29 82/43 (56) 96 03/10/19 15:22 101 27 40 03/10/19 15:00 113 29 104/61 (75) 94 03/10/19 15:00 104/61 03/10/19 14:30 111 29 96/51 (66) 84 03/10/19 14:00 112 27 92/66 (75) 98 03/10/19 14:00 105/53 03/10/19 13:30 109 25 100/54 (69) 03/10/19 13:00 91/58 03/10/19 13:00 100 28 91/58 (69) 82 03/10/19 12:48 106 27 98 Mechanical Ventilator 40 110 24 40 03/10/19 12:30 110 27 101/55 (70) 96 03/10/19 12:00 103 03/10/19 12:00 Mechanical Ventilator 03/10/19 12:00 98.5 103 27 95/58 (70) 95 03/10/19 12:00 95/58 03/10/19 11:30 111 28 102/59 (73) 94 03/10/19 11:09 98 26 40 03/10/19 11:00 103 28 111/59 (76) 94 03/10/19 11:00 111/59 03/10/19 10:30 105 21 102/60 (74) 94 03/10/19 10:00 111/60 03/10/19 10:00 117 26 111/60 (77) 96 03/10/19 09:45 91/56 03/10/19 09:30 96/55 03/10/19 09:30 102 24 96/55 (69) 100 03/10/19 09:15 93/53 03/10/19 09:08 35 03/10/19 09:00 105/56 03/10/19 09:00 106 25 105/56 (72) 98 03/10/19 08:57 102 29 35 03/10/19 08:56 98 03/10/19 08:35 109 03/10/19 08:30 109 27 113/57 (75) 100 03/10/19 08:30 113/57 03/10/19 08:10 87/53 03/10/19 08:00 98.3 110 27 87/54 (65) 96 03/10/19 08:00 35 03/10/19 08:00 105 03/10/19 08:00 Mechanical Ventilator 03/10/19 08:00 87/54 03/10/19 07:30 97/57 03/10/19 07:30 108 19 97/57 (70) 96 03/10/19 07:23 106 25 100 Mechanical Ventilator 35 111 29 35 03/10/19 07:00 128 27 93/55 (68) 99 03/10/19 07:00 97/57 03/10/19 06:45 109 29 100/64 (76) 95 03/10/19 06:30 109 29 99/61 (74) 95 03/10/19 06:15 108 28 103/61 (75) 100 03/10/19 06:00 106 26 102/53 (69) 87 03/10/19 06:00 102/53 03/10/19 05:45 110 27 97/56 (70) 11/30/19 05:30 108 25 118/56 (76) 03/10/19 05:15 109 24 109/56 (73) 03/10/19 05:15 109/56 03/10/19 05:08 106 27 35 03/10/19 05:05 107 24 92/60 (71) 03/10/19 05:00 85/53 03/10/19 04:46 107 22 89/52 (64) 03/10/19 04:30 106 26 92/53 (66) 03/10/19 04:15 110 27 105/61 (76) 03/10/19 04:00 109 03/10/19 04:00 96/57 03/10/19 04:00 35 03/10/19 04:00 113 29 96/57 (70) 03/10/19 04:00 Mechanical Ventilator 03/10/19 03:38 100/58 03/10/19 03:30 109 25 113/59 (77) 03/10/19 03:15 111 24 99/52 (68) 03/10/19 03:00 99/57 03/10/19 03:00 109 27 99/57 (71) 03/10/19 02:45 113 27 96/57 (70) 03/10/19 02:34 112 27 35 03/10/19 02:30 109 25 90/61 (71) 100 03/10/19 02:15 113 27 101/55 (70) 03/10/19 02:00 100/59 03/10/19 02:00 111 25 100/59 (73) 03/10/19 01:45 113 25 98/55 (69) 03/10/19 01:30 114 24 86/54 (65) 03/10/19 01:15 100 20 91/54 (66) 97 03/10/19 01:00 81/50 03/10/19 01:00 109 20 81/50 (60) 97 03/10/19 00:48 74/36 03/10/19 00:45 98.6 102 20 126/55 (78) 97 03/10/19 00:41 91 28 35 03/10/19 00:00 35 03/10/19 00:00 Mechanical Ventilator 03/10/19 00:00 98.6 102 20 91/59 (70) 97 03/09/19 23:32 100 03/09/19 23:10 95 22 35 03/09/19 21:26 111 29 35 03/09/19 20:00 114 03/09/19 20:00 Mechanical Ventilator 03/09/19 20:00 99.0 108 23 83/56 (65) 95 03/09/19 20:00 35 03/09/19 19:55 110 28 93 Mechanical Ventilator 35 03/09/19 19:27 111 28 35 Intake and Output 03/09/19 03/10/19 19:00 07:00 Intake Total 800 ml 1634.750 ml Output Total 600 ml 650 ml Balance 200 ml 984.750 ml Free Water 200 ml 100 ml IV Total 1134.750 ml Tube Feeding 600 ml 400 ml Output Urine Total 300 ml 200 ml Stool Total 300 ml 450 ml # Voids 200 Laboratory Tests 03/10/19 04:50: White Blood Count 7.1, Red Blood Count 3.13L, Hemoglobin 9.9L, Hematocrit 31.1L , Mean Corpuscular Volume 99, Mean Corpuscular Hemoglobin 31.7H, Mean Corpuscular Hemoglobin Concent 32.0, Red Cell Distribution Width 19.3H, Platelet Count 80L, Mean Platelet Volume 10.0, Neutrophils (%) (Auto) , Lymphocytes (%) (Auto) , Monocytes (%) (Auto) , Eosinophils (%) (Auto) , Basophils (%) (Auto) , Differential Total Cells Counted 100, Neutrophils % ( Manual) 50, Lymphocytes % (Manual) 10L, Monocytes % (Manual) 4, Eosinophils % ( Manual) 0, Basophils % (Manual) 0, Myelocytes % 1H, Band Neutrophils 35H, Platelet Estimate DecreasedL, Platelet Morphology Normal, Anisocytosis 2+, Macrocytosis 1+, Ovalocytes 2+, Sodium Level 145, Potassium Level 3.2L, Chloride Level 113H, Carbon Dioxide Level 19L, Anion Gap 13, Blood Urea Nitrogen 49H, Creatinine 1.3, Estimat Glomerular Filtration Rate , Glucose Level 107#H, Calcium Level 7.9L, Magnesium Level 1.8, Total Bilirubin 1.9H, Direct Bilirubin 1.5H, Aspartate Amino Transf (AST/SGOT) 34, Alanine Aminotransferase (ALT/SGPT) 9L, Alkaline Phosphatase 89, Total Protein 5.0L, Albumin 1.4L, Globulin 3.6, Albumin/Globulin Ratio 0.4L Height (Feet): 5 Height (Inches): 5.00 Weight (Pounds): 159 Objective thin AA woman NCAT Supple, s/p trach Coarse ronchi RR abd soft ND NT, (+) GT, some skin breakdown at GT site, distended abd obtunded contracted César Saldana MD Mar 10, 2019 17:22
[2019-03-10] MEDS: Metoclopramide 10mg/2ml Inj IVP SCH (17:40)
--- NOTE | 2019-03-10 17:52 | Nephrology Progress Note ---
Assessment/Plan Problem List: (1) Acute respiratory failure Assessment: trached 03/06 (2) Septic shock (3) Renal failure (4) Atrial fibrillation with rapid ventricular response (5) Cardiomyopathy Assessment Renal failure - ? Acute on Chronic, Partly dehydration Septic Shock UTI AT Fib with FVR h/o DM, proteinuria , HypoAlbuminemia Plan post trach Kayexelate as needed dig IV one dose given previously Midodrine K and Mag supplement as needed pulm support per consultants previously: stop NS intubated On 2 pressors BP remains low Poor prognosis - remains full code for now slow Hydrate 2D echo EjFx 40% antibiotics monitor renal parameters avoid nephrotoxics per orders Subjective ROS Limited/Unobtainable: Yes Objective Objective Last 24 Hour Vital Signs Date Time Temp Pulse Resp B/P (MAP) Pulse Ox O2 Delivery O2 Flow Rate FiO2 03/10/19 17:17 114 28 40 03/10/19 17:00 110 27 83/41 (55) 98 03/10/19 16:45 86/46 03/10/19 16:30 111 27 101/44 (63) 98 03/10/19 16:00 98.2 115 26 109/55 (73) 98 03/10/19 16:00 110 03/10/19 16:00 109/55 03/10/19 16:00 35 03/10/19 16:00 Mechanical Ventilator 03/10/19 15:30 114 29 82/43 (56) 96 03/10/19 15:22 101 27 40 03/10/19 15:00 113 29 104/61 (75) 94 03/10/19 15:00 104/61 03/10/19 14:30 111 29 96/51 (66) 84 03/10/19 14:00 112 27 92/66 (75) 98 03/10/19 14:00 105/53 03/10/19 13:30 109 25 100/54 (69) 03/10/19 13:00 91/58 03/10/19 13:00 100 28 91/58 (69) 82 03/10/19 12:48 106 27 98 Mechanical Ventilator 40 110 24 40 03/10/19 12:30 110 27 101/55 (70) 96 03/10/19 12:00 103 03/10/19 12:00 Mechanical Ventilator 03/10/19 12:00 98.5 103 27 95/58 (70) 95 03/10/19 12:00 95/58 03/10/19 11:30 111 28 102/59 (73) 94 03/10/19 11:09 98 26 40 03/10/19 11:00 103 28 111/59 (76) 94 03/10/19 11:00 111/59 03/10/19 10:30 105 21 102/60 (74) 94 03/10/19 10:00 111/60 03/10/19 10:00 117 26 111/60 (77) 96 03/10/19 09:45 91/56 03/10/19 09:30 96/55 03/10/19 09:30 102 24 96/55 (69) 100 03/10/19 09:15 93/53 03/10/19 09:08 35 03/10/19 09:00 105/56 03/10/19 09:00 106 25 105/56 (72) 98 03/10/19 08:57 102 29 35 03/10/19 08:56 98 03/10/19 08:35 109 03/10/19 08:30 109 27 113/57 (75) 100 03/10/19 08:30 113/57 03/10/19 08:10 87/53 03/10/19 08:00 98.3 110 27 87/54 (65) 96 03/10/19 08:00 35 03/10/19 08:00 105 03/10/19 08:00 Mechanical Ventilator 03/10/19 08:00 87/54 03/10/19 07:30 97/57 03/10/19 07:30 108 19 97/57 (70) 96 03/10/19 07:23 106 25 100 Mechanical Ventilator 35 111 29 35 03/10/19 07:00 128 27 93/55 (68) 99 03/10/19 07:00 97/57 03/10/19 06:45 109 29 100/64 (76) 95 03/10/19 06:30 109 29 99/61 (74) 95 03/10/19 06:15 108 28 103/61 (75) 100 03/10/19 06:00 106 26 102/53 (69) 87 03/10/19 06:00 102/53 03/10/19 05:45 110 27 97/56 (70) 03/10/19 05:30 108 25 118/56 (76) 03/10/19 05:15 109 24 109/56 (73) 03/10/19 05:15 109/56 03/10/19 05:08 106 27 35 03/10/19 05:05 107 24 92/60 (71) 03/10/19 05:00 85/53 03/10/19 04:46 107 22 89/52 (64) 03/10/19 04:30 106 26 92/53 (66) 03/10/19 04:15 110 27 105/61 (76) 03/10/19 04:00 109 03/10/19 04:00 96/57 03/10/19 04:00 35 03/10/19 04:00 113 29 96/57 (70) 03/10/19 04:00 Mechanical Ventilator 03/10/19 03:38 100/58 03/10/19 03:30 109 25 113/59 (77) 03/10/19 03:15 111 24 99/52 (68) 03/10/19 03:00 99/57 03/10/19 03:00 109 27 99/57 (71) 03/10/19 02:45 113 27 96/57 (70) 03/10/19 02:34 112 27 35 03/10/19 02:30 109 25 90/61 (71) 100 03/10/19 02:15 113 27 101/55 (70) 03/10/19 02:00 100/59 03/10/19 02:00 111 25 100/59 (73) 03/10/19 01:45 113 25 98/55 (69) 03/10/19 01:30 114 24 86/54 (65) 03/10/19 01:15 100 20 91/54 (66) 97 03/10/19 01:00 81/50 03/10/19 01:00 109 20 81/50 (60) 97 03/10/19 00:48 74/36 03/10/19 00:45 98.6 102 20 126/55 (78) 97 03/10/19 00:41 91 28 35 03/10/19 00:00 35 03/10/19 00:00 Mechanical Ventilator 03/10/19 00:00 98.6 102 20 91/59 (70) 97 03/09/19 23:32 100 03/09/19 23:10 95 22 35 03/09/19 21:26 111 29 35 03/09/19 20:00 114 03/09/19 20:00 Mechanical Ventilator 03/09/19 20:00 99.0 108 23 83/56 (65) 95 03/09/19 20:00 35 03/09/19 19:55 110 28 93 Mechanical Ventilator 35 03/09/19 19:27 111 28 35 Intake and Output 03/09/19 03/10/19 19:00 07:00 Intake Total 800 ml 1634.750 ml Output Total 600 ml 650 ml Balance 200 ml 984.750 ml Free Water 200 ml 100 ml IV Total 1134.750 ml Tube Feeding 600 ml 400 ml Output Urine Total 300 ml 200 ml Stool Total 300 ml 450 ml # Voids 200 Laboratory Tests 03/10/19 04:50: White Blood Count 7.1, Red Blood Count 3.13L, Hemoglobin 9.9L, Hematocrit 31.1L , Mean Corpuscular Volume 99, Mean Corpuscular Hemoglobin 31.7H, Mean Corpuscular Hemoglobin Concent 32.0, Red Cell Distribution Width 19.3H, Platelet Count 80L, Mean Platelet Volume 10.0, Neutrophils (%) (Auto) , Lymphocytes (%) (Auto) , Monocytes (%) (Auto) , Eosinophils (%) (Auto) , Basophils (%) (Auto) , Differential Total Cells Counted 100, Neutrophils % ( Manual) 50, Lymphocytes % (Manual) 10L, Monocytes % (Manual) 4, Eosinophils % ( Manual) 0, Basophils % (Manual) 0, Myelocytes % 1H, Band Neutrophils 35H, Platelet Estimate DecreasedL, Platelet Morphology Normal, Anisocytosis 2+, Macrocytosis 1+, Ovalocytes 2+, Sodium Level 145, Potassium Level 3.2L, Chloride Level 113H, Carbon Dioxide Level 19L, Anion Gap 13, Blood Urea Nitrogen 49H, Creatinine 1.3, Estimat Glomerular Filtration Rate , Glucose Level 107#H, Calcium Level 7.9L, Magnesium Level 1.8, Total Bilirubin 1.9H, Direct Bilirubin 1.5H, Aspartate Amino Transf (AST/SGOT) 34, Alanine Aminotransferase (ALT/SGPT) 9L, Alkaline Phosphatase 89, Total Protein 5.0L, Albumin 1.4L, Globulin 3.6, Albumin/Globulin Ratio 0.4L Height (Feet): 5 Height (Inches): 5.00 Weight (Pounds): 159 General Appearance: no apparent distress EENT: other - trach Cardiovascular: tachycardia Respiratory/Chest: decreased breath sounds Abdomen: distended Objective no change Jt Louis MD Mar 10, 2019 17:52
--- NOTE | 2019-03-10 18:00 | NUR ---
NURSE NOTES: Increased levophed from 8mcg/min to 10mcg/min to keep SBP>90
--- NOTE | 2019-03-10 18:15 | NUR ---
NURSE NOTES: Increased levophed from 10mcg/min to 12mcg/min to keep SBP>90
--- NOTE | 2019-03-10 18:50 | NUR ---
NURSE NOTES: Trach suction given and increased levophed to 20mcg/min to keep SBP>90. Will continue to monitor closely.
--- NOTE | 2019-03-10 19:17 | NUR ---
HAND-OFF: Report given to ANDREINA Lake. Endorsed plan of care.
--- NOTE | 2019-03-10 19:30 | NUR ---
NURSE NOTES: Received patient and report from ANDREINA Becker. Pt's resting in bed, obtunded, non responsive, BP78/59, HR117, R25. Levophed running at 20mcg/min via left UA PICC. Afib on police detective. Trach Shiley 8 to vent with vent settings of AC 16/500tv, 100% FiO2 and peep of 5. SpO2 is current not registered. Patient has G-tube, feeding on hold at this time. Rectal tube noted with liquid brown diarrhea. SCD's on. P200 mattress noted. Patient has pitting edema on upper and lower extremities. The abdomen distended,round. Gross in place poor output per previous staff. Safety measures are in place. Bed in low and locked position. Call light within reach. Will continue to monitor.
[2019-03-10] MEDS ORDERED: Dyna-Hex 2% Top Sol 2oz TOPIC SCH (20:00)
[2019-03-10] MEDS: Phenylephrine 50 MG in D5W 245 ML IV SCH ×2 (20:45→22:30)
[2019-03-10] MEDS: Norepinephrine Bitartrate 8 MG in D5W 500ml 492 ML IV SCH (21:29)
--- NOTE | 2019-03-10 22:25 | NUR ---
NURSE NOTES: Call Dr Reis due to pt's current condition, BP 85/66 and pt's currently on max of Levophed. New orders noted and carried out. Will continue to monitor the pt.
[2019-03-11] VITALS (57 sets, daily range): BP systolic 31–214; BP diastolic 11–151
[2019-03-11] MEDS: Metoclopramide 10mg/2ml Inj IVP SCH (00:04)
--- NOTE | 2019-03-11 01:44 | NUR ---
CODE BLUE: See Code sheet which remains on paper.
--- NOTE | 2019-03-11 02:00 | NUR ---
NURSE NOTES: Called Dr. Reis regarding pt's condition, post CODE. New orders noted and carried out. Pt's currently on max of Levophed, max of Phenylephrine, and max of Vasopressin, 500ml NS bolus given. Will continue to monitor.
[2019-03-11] MEDS ORDERED: Vasopressin 100 UNITS in NS 95 ML IV SCH (02:15)
[2019-03-11] MEDS: Phenylephrine 50 MG in D5W 245 ML IV SCH (02:23)
--- NOTE | 2019-03-11 02:31 | NUR ---
CODE BLUE: See Code sheet which remains on paper.
[2019-03-11] MEDS: Norepinephrine Bitartrate 8 MG in D5W 500ml 492 ML IV SCH (02:50)
--- NOTE | 2019-03-11 03:16 | NUR ---
CODE BLUE: See Code sheet which remains on paper.
--- NOTE | 2019-03-11 03:59 | NUR ---
CODE BLUE: See Code sheet which remains on paper.
--- NOTE | 2019-03-11 04:42 | NUR ---
CODE BLUE: See Code sheet which remains on paper.
--- NOTE | 2019-03-11 05:00 | NUR ---
NURSE NOTES: Dr Reis was updated with all the CODEs
--- NOTE | 2019-03-11 05:22 | NUR ---
CODE BLUE: See Code sheet which remains on paper.
--- NOTE | 2019-03-11 05:41 | NUR ---
CODE BLUE: See Code sheet which remains on paper.
--- NOTE | 2019-03-11 05:52 | NUR ---
NURSE NOTES: Called and spoke with MD Reis after code. notified him we have coded patient 7 time now. ER MD does not want to stop code without his input. He stated " it would be futile to continue and I agree if the ER MD wants to end code". Called and notified ER MD about conversation.
--- NOTE | 2019-03-11 05:59 | NUR ---
CODE BLUE: See Code sheet which remains on paper.
--- NOTE | 2019-03-11 06:02 | NUR ---
NURSE NOTES: patient at this time. time of was called by ER MD Gr. Please see her note
--- NOTE | 2019-03-11 06:08 | NUR ---
NURSE NOTES: Dr Reis was informed about pt's expiration.
--- NOTE | 2019-03-11 06:52 | Emergency Room Report ---
History of Present Illness General Chief Complaint: Abdominal Pain Source: Medical Record, PMD Present Illness HPI 78-year-old female with History dementia chronic afibrillation, hypertension, congestive heart failure, septic shock, hyponatremia, hypotension, hypoxemia, thrombocytopenia, anemia, acute renal failure, vent supported status post trach. Who was admitted for sepsis, urinary tract infection, renal failure and A. fib RVR. Patient is a full code. Patient was on 2 vasopressors prior to code. Allergies: Coded Allergies: No Known Allergies (Unverified , 02/19/19) Patient History Limited by: medical condition - Unresponsive tracheostomy Nursing Documentation-PMH Past Medical History Deferred: Pt Cognitively Impaired Past Medical History: No Stated History Hx Hypertension: Yes Hx COPD: Yes Hx Diabetes: Yes Hx Cancer: No Hx Dialysis: No - CKD Hx Dementia: Yes Hx Weakness: Yes Review of Systems All Other Systems: limited - Unable to assess due to chronic condition Physical Exam Vital Signs Date Time Temp Pulse Resp B/P (MAP) Pulse Ox O2 Delivery O2 Flow Rate FiO2 03/07/19 07:00 80 16 90/62 (71) 100 03/07/19 07:12 Mechanical Ventilator 35 35 03/07/19 08:02 96.9 General Appearance: Chronically Ill Head: normocephalic, atraumatic Eyes: bilateral eye other - Bilateral eyes fixed and dilated Respiratory: other - Trach with bloody output Cardiovascular #1: other - Poor pulses thready, on vasopressors Gastrointestinal: other - Distended soft Neuologic: other - Unresponsive Procedures Critical Care Time Critical Care Time Critical care time includes 90 minutes of care for the patient excluding procedures and teaching time Medical Decision Making Diagnostic Impression: Primary Impression: Acute respiratory failure Qualified Codes: J96.01 - Acute respiratory failure with hypoxia ER Course Patient had a total of 8 codes overnight. Presents initial code was at 1:44 AM to 1:57 AM lasting 13 minutes, second code from 2 31-2 30 9 AM lasting 8 minutes. Third code from 3 16-3 20 8 AM lasting 12 minutes, discussed adding on a in additional vasopressor with PMD and orders were carried out by nursing. Fourth code from 3 59-4 09 blasting 10 minutes, fifth code from 4 42-4 48 lasting 6 minutes, discussed with PMD regarding further testing. Lab tests were ordered as per nursing. sixth code from 5 22-5 29 lasting 6 minutes, seventh code from 5 41-5 48 lasting 7 minutes. After 7 code discussion with PMD to discuss utility of all further codes as patient has fixed and dilated pupils, distended abdomen, and 7 codes. He agreed with my assessment and recognized continuing to code patient will not be beneficial or change patient' s deteriorating outcome and ultimate . Patient is a code was called at 559 and time of was determined at 6:02 AM. Please see code sheet for all medication administration times and doses. Following ACLS protocols. Last Vital Signs Date Time Temp Pulse Resp B/P (MAP) Pulse Ox O2 Delivery O2 Flow Rate FiO2 03/11/19 05:16 61 16 100 03/11/19 05:00 94/70 03/11/19 02:39 72 03/10/19 20:00 98.4 03/10/19 20:00 Mechanical Ventilator Disposition: ADMITTED INPATIENT Condition: Critical Referrals: NON PHYSICIAN (PCP) Vj Epstein M.D. Mar 11, 2019 06:52
--- NOTE | 2019-03-11 07:10 | NUR ---
NURSE NOTES: Received report from ANDREINA Lake.
--- NOTE | 2019-03-11 08:24 | NUR ---
NURSE NOTES: [facility] called and stated her body is not appropriate for donation then we can release body in proper way.
--- NOTE | 2019-03-11 08:55 | NUR ---
NURSE NOTES: care done. Will release body in proper way.
[2019-03-11] MEDS ORDERED: Atropine Inj 1mg/10ml Syr ONE (10:39)
[2019-03-11] MEDS ORDERED: Calcium Chloride 10% 10ml carpuject IVP ONE (10:39)
[2019-03-11] MEDS ORDERED: Sodium Bicarbonate 8.4% 50ml Inj ONE (10:39)
[2019-03-11] MEDS ORDERED: NS 500ML ONE (10:39)
--- NOTE | 2019-03-11 10:40 | NUR ---
NURSE NOTES: [place] [facility] [place]
--- NOTE | 2019-03-11 21:00 | Discharge Summary ---
DATE OF ADMISSION: 02/19/2019 DATE OF DISCHARGE: 03/11/2019 SUMMARY CAUSE OF : Cardiopulmonary arrest likely ischemic bowel, chronic respiratory failure, cirrhosis, and hypertension. HOSPITAL COURSE: The patient was an unfortunate 78-year-old female with history of cirrhosis, dysphagia, status post G-tube, and hypertension. She presented with complaints of septic shock. She was treated with broad-spectrum IV antibiotics. She required multiple pressors. She was started on intravenous steroids for possible adrenal insufficiency. She was actually able to be weaned off her pressors. She required placement of a tracheostomy because of persistent respiratory failure. She became progressively more hypotensive, unresponsive to IV fluids and pressors. She had a total of eight Code Blues. Eventually though, the last Code Blue was unsuccessful and the patient . She had no family members. Mitchel Reis M.D. DR: Jonathan JOB#: [id number] CC:
--- NOTE | 2019-03-12 15:47 | NUR ---
*-* INSURANCE *-* ALL CLINICALS AND REVIEWS HAVE BEEN FAXED TO: MARGARITA Clement Ref#[id number] CM: Dung #[phone] ext [phone] fax#[phone]
--- NOTE | 2019-03-13 03:15 | Progress Note ---
DATE: 03/10/2019 CARDIOLOGY PROGRESS NOTE Late entry for March 10, 2019. SUBJECTIVE: The patient was transferred back to the intensive care unit late last evening due to recurring hypotension and unresponsive to fluid challenges. I ordered pressors continues at this time. IV hydrocortisone has been added as well. The patient's condition remains critical and prognosis is grave. Blood pressure parameters are tenuous. Monitor atrial fibrillation. OBJECTIVE: LUNGS: Bilateral breath sounds. Scattered rhonchi. CARDIAC: Irregularly irregular rhythm. Normal S1 and S2. ABDOMEN: Soft. EXTREMITIES: 1+ edema. LABORATORY DATA: White count 7, hemoglobin 10, potassium 3.2, BUN 49, creatinine 1.3, and magnesium 1.8. IMPRESSION: 1. Shock, multifactorial. 2. Sepsis. 3. Hypovolemia. 4. Adrenocortical insufficiency. 5. Respiratory failure. 6. Paroxysmal atrial fibrillation. PLAN: 1. Pressors. 2. Volume support. 3. Stress dose steroids. 4. Respiratory hygiene. 5. Digitalization for rate control. 6. DVT prophylaxis. 7. Antimicrobials. 8. otherwise midodrine on board, although unlikely to add much in the setting. Jimmie Mason M.D. DR: YUE JOB#: [id number] CC:
== END 2019-03-11 10:40 | disposition expired | DRG 5 ==
LOC: EDBD 09:52 → EMR 11:25 → EDBEDREQSVC 11:59 → EDBEDREQ 11:59 → ICU 13:14 → EDBEDREQ 13:33 → 2W 03-08 18:02 → ICU 03-10 00:17
PROC: 02HV33Z Insertion of Infusion Device into Superior Vena Cava, Percutaneous Approach (ICD-10-PCS; 2019-02-19)
PROC: B548ZZA Ultrasonography of Superior Vena Cava, Guidance (ICD-10-PCS; 2019-02-19)
PROC: 02HV33Z Insertion of Infusion Device into Superior Vena Cava, Percutaneous Approach (ICD-10-PCS; 2019-02-21)
PROC: B548ZZA Ultrasonography of Superior Vena Cava, Guidance (ICD-10-PCS; 2019-02-21)
PROC: 0BH17EZ Insertion of Endotracheal Airway into Trachea, Via Natural or Artificial Opening (ICD-10-PCS; principal; 2019-02-22)
PROC: 5A1955Z Respiratory Ventilation, Greater than 96 Consecutive Hours (ICD-10-PCS; principal; 2019-02-22)
PROC: 0B110F4 Bypass Trachea to Cutaneous with Tracheostomy Device, Open Approach (ICD-10-PCS; 2019-03-06)
DX: A41.9 Sepsis, unspecified organism (principal); R65.21 Severe sepsis with septic shock; N39.0 Urinary tract infection, site not specified; I11.0 Hypertensive heart disease with heart failure; I48.20 Chronic atrial fibrillation, unspecified; E86.0 Dehydration; N17.9 Acute kidney failure, unspecified; G93.49 Other encephalopathy; T68.XXXA Hypothermia, initial encounter; I27.20 Pulmonary hypertension, unspecified; J18.9 Pneumonia, unspecified organism; I50.43 Acute on chronic combined systolic (congestive) and diastolic (congestive) heart failure; J96.21 Acute and chronic respiratory failure with hypoxia; N18.9 Chronic kidney disease, unspecified; E11.9 Type 2 diabetes mellitus without complications; J44.0 Chronic obstructive pulmonary disease with (acute) lower respiratory infection; Z93.1 Gastrostomy status; F03.90 Unspecified dementia, unspecified severity, without behavioral disturbance, psychotic disturbance, mood disturbance, and anxiety; E78.5 Hyperlipidemia, unspecified; R13.10 Dysphagia, unspecified; E86.1 Hypovolemia; I51.3 Intracardiac thrombosis, not elsewhere classified; D69.6 Thrombocytopenia, unspecified; I31.3 Pericardial effusion (noninflammatory); K74.60 Unspecified cirrhosis of liver; K76.6 Portal hypertension; G93.40 Encephalopathy, unspecified; R19.7 Diarrhea, unspecified; Y95 Nosocomial condition; E27.40 Unspecified adrenocortical insufficiency; I27.82 Chronic pulmonary embolism; Z99.11 Dependence on respirator [ventilator] status; E43 Unspecified severe protein-calorie malnutrition; Z68.26 Body mass index [BMI] 26.0-26.9, adult; E83.42 Hypomagnesemia; K55.9 Vascular disorder of intestine, unspecified
CPT/HCPCS: 36415; 36569; 36600; 71045; 74176; 76700; 76937; 80053; 80061; 80162; 80202; 81003; 82105; 82140; 82150; 82248; 82533; 82550; 82570; 82607; 82728; 82746; 82803; 82962; 82977; 83540; 83550; 83605; 83690; 83735; 83880; 84100; 84300; 84443; 84484; 84550; 85007; 85025; 85610; 85651; 85730; 86140; 86705; 86709; 86803; 86850; 86900; 86901; 86920; 87040; 87081; 87086; 87324; 87340; 89050; 92950; 93005; 93306; 93970; 94002; 94003; 94150; 94664; 96361; 96365; 96368; 96375; 99291; J0171; J2250; J2370; J2405; J2765; J7030; J7620; J8499